=== PATIENT | female | born 1985 | race Caucasian/White ===

== ENCOUNTER 2023-08-09 18:44 | Emergency (ER) | payer OTHER, SELFPAY ==
[2023-08-09 18:51] VITALS: BP 128/96; PULSE 96; RESP 18; TEMP 36.6; O2SAT 96; BMI 30.7
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
[2023-08-09] MEDS: 0.9 % SODIUM CHLORIDE 1,000 ML 1000 ML IV (19:24)
[2023-08-09] MEDS: ORPHENADRINE 60 MG/ 2 ML VIAL IV (19:24)
[2023-08-09] MEDS: KETOROLAC TROMETHAMINE 30 MG/ML VIAL IVP (19:24)
[2023-08-09] MEDS: METOCLOPRAMIDE HCL 10 MG/2 ML VIAL IVP (19:24)
[2023-08-09] MEDS: DIPHENHYDRAMINE HCL 50 MG/ML (1ML) VIAL 25 MG IV (19:24)
[2023-08-09] MEDS: MAGNESIUM SULFATE IN WATER 2 GM/50 ML PREMIX IV (21:15)
[2023-08-09] MEDS: METHYLPREDNISOLONE SOD SUCC PF 125 MG/2 ML VIAL IVP (21:16)
== END 2023-08-09 22:20 | disposition home or self-care (01) ==
PROVIDERS: Emergency Provider Internal Medicine
DX: R51.9 Headache, unspecified (principal); Z98.1 Arthrodesis status
CPT/HCPCS: 96361; 96374; 96375; 99284; J2930

== ENCOUNTER 2023-12-30 18:37 | Emergency (ER) | payer SELFPAY ==
[2023-12-30] VITALS (19 sets, daily range): BP systolic 125–142; BP diastolic 90–105; PULSE 84–98; RESP 15–26; TEMP 36.9; O2SAT 94–99; BMI 35.8
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
--- NOTE | 2023-12-30 18:55 | ECG_ITS ---
The [facility] Test Date: 2023-12-30 Pat Name: MARY GAN Department: Room: - Gender: Female [employer]: : 1985 Requested By: [id number] Order Number: [id number] Reading MD: KARI VU Measurements Intervals [place] Rate: 82 P: 63 CT: 178 QRS: 33 QRSD: 90 T: 43 QT: 364 QTc: 402 Interpretive Statements 1100 Sinus rhythm 8102 Low QRS voltage in chest leads 9120 atypical ECG No previous ECG available for comparison Electronically Signed On 01-01-2024 5:55:29 EST by KARI VU
--- NOTE | 2023-12-30 18:56 | CT_ITS ---
The [address] [address] Patient Name: MARY GAN MRN: [id number] date: 1985 Sex: F Assigned Patient Location: ER Current Patient Location: ER Accession/Order Number: [id number] Exam Date: 12/30/2023 19:31 Report Date: 12/30/2023 20:25 At the request of: LEANNE FERRER Procedure: CT angio chest EXAM: CTA chest. CLINICAL SYMPTOMS: Female, 38 years, Chest pain/shortness of breath/Family History:. COMPARISONS: None. TECHNIQUE: Helical CTA of the pulmonary arteries was performed following rapid injection of intravenous contrast with coronal and sagittal MIP images following the administration of IV contrast. Dose reduction techniques were achieved by using automated exposure control and/or adjustment of mA and/or KVP according to patient size and/or use of iterative reconstruction technique. FINDINGS: Neck/Mediastinum: Normal imaged thyroid. No lymphadenopathy. Cardiovascular: Normal heart size without pericardial effusion or thickening. Normal caliber of the ascending thoracic aorta and main pulmonary artery. No central filling defects in the pulmonary arteries. Lungs/pleura/airways: No pneumothorax, pleural effusion or consolidation. No concerning pulmonary nodules. The trachea and mainstem bronchi are clear. Dependent changes at the lung bases. Upper Abdomen: Status post cholecystectomy. Musculoskeletal/Soft Tissues: No acute fracture or aggressive osseous abnormality. Partially imaged postsurgical changes of lower cervical spine. Normal appearance of the soft tissues. CT/CT angio chest IMPRESSION: No evidence for pulmonary embolism or aortic dissection. Electronically authenticated by: ZAID FAIR Date: 12/30/2023 20:25
[2023-12-30 19:08] LABS: Basophils Absolute Auto 0.1 10^3/uL (0.0-0.1); Basophils Percent Auto 0.7 % (0.2-2.0); Eosinophils Absolute Auto 0.1 10^3/uL (0.0-0.7); Eosinophils Percent Auto 0.9 % (0.9-7.0); Hematocrit 39.1 % (36.0-48.0); Hemoglobin 12.8 g/dL (12.0-16.0); Immature Granulocytes Abs Auto 0.03 10^3/uL (0.00-0.03); Immature Granulocytes Pct Auto 0.3 % (0.0-0.5); Lymphocytes Absolute Auto 2.8 10^3/uL (1.2-3.8); Lymphocytes Percent Auto 31.8 % (20.5-60.0); Mean Corpuscular HGB Conc 32.7 g/dL (29.9-35.2); Mean Corpuscular Volume 91.8 fL (81.0-99.0); Mean Platelet Volume 10.5 fL (9.5-13.5); Monocytes Absolute Auto 0.5 10^3/uL (0.3-0.8); Monocytes Percent Auto 5.7 % (1.7-12.0); Neutrophils Absolute Auto 5.3 10^3/uL (1.4-6.5); Neutrophils Percent Auto 60.6 % (43.0-75.0); Platelet Count 280 10^3/uL (150-450); Red Blood Count 4.26 10^6/uL (4.20-5.40); White Blood Count 8.8 10^3/uL (4.0-11.0)
[2023-12-30] MEDS: LORAZEPAM 2 MG/ML 1 ML VIAL 1 MG IV (19:11)
[2023-12-30 19:39] LABS: D Dimer 0.25 mg/L FEU (<=0.59)
[2023-12-30 19:54] LABS: Alanine Aminotransferase 22 U/L (14-59); Albumin Globulin Ratio 1.1; Albumin Level 3.9 g/dL (3.4-5.0); Alkaline Phosphatase 46 U/L (46-116); Anion Gap 14.5; Aspartate Amino Transferase 12 U/L (15-37); BUN Creatinine Ratio 9.3; Bilirubin Total 0.3 mg/dL (0.2-1.0); Carbon Dioxide 24.2 mmol/L (21.0-32.0); Chloride 102 mmol/L (98-107); Estimated GFR (African America >60 (>=60); Estimated GFR (Non-African Ame >60 (>=60); Globulin 3.7 g/dL; Glucose 106 mg/dL (74-106); Potassium 3.7 mmol/L (3.5-5.1); Sodium 137 mmol/L (136-145); Total Protein 7.6 g/dL (6.4-8.2); Troponin I High Sensitivity <4.0 pg/mL (4.0-51.3)
== END 2023-12-30 21:03 | disposition home or self-care (01) ==
PROVIDERS: Emergency Medicine Emergency Medical Services; Emergency Provider Internal Medicine
DX: R07.89 Other chest pain (principal); Z98.1 Arthrodesis status; Z79.899 Other long term (current) drug therapy
CPT/HCPCS: 36415; 71275; 80053; 84484; 85025; 85378; 93005; 96374; 99285; J2060; Q9967

== ENCOUNTER 2024-08-09 12:09 | Emergency (ER) | payer SELFPAY ==
[2024-08-09 12:13] VITALS: BP 119/86; PULSE 112; TEMP 36.9; O2SAT 96; BMI 30.7
[2024-08-09 12:28] VITALS: O2SAT 98
--- NOTE | 2024-08-09 12:29 | XR_ITS ---
The [address] [address] Patient Name: MARY GAN MRN: [id number] date: 1985 Sex: F Assigned Patient Location: ER Current Patient Location: ER Accession/Order Number: [id number] Exam Date: 08/09/2024 13:14 Report Date: 08/09/2024 13:32 At the request of: RACHELLE LIGHT Procedure: XR chest 1V EXAMINATION: XR chest 1V HISTORY: cough, SOB COMPARISON: No relevant comparison available. TECHNIQUE: AP portable FINDINGS: LUNGS: No significant pulmonary parenchymal abnormalities. VASCULATURE: No increased pulmonary vasculature. PLEURA: No pneumothorax, effusion, or pleural thickening. CARDIAC: No cardiomegaly or cardiac silhouette abnormality. MEDIASTINUM: No visible mass or adenopathy. BONES: No fracture or visible bone lesion. Degenerative changes. Cervical fusion hardware OTHER: Negative. XR/XR chest 1V IMPRESSION: No acute cardiopulmonary process Electronically authenticated by: SOURAV KIRKPATRICK Date: 08/09/2024 13:32
--- NOTE | 2024-08-09 12:30 | ED_ITS ---
HPI - SOB/Dyspnea General Chief Complaint: Shortness of Breath/Dyspnea Stated Complaint: COUGH, SOB, CHEST PAIN Time Seen by Provider: 08/09/24 12:25 Source: patient Mode of arrival: walk-in Limitations: no limitations History of Present Illness HPI Narrative: 38-year-old female presents for a few day history of cough and shortness of breath. She is now coughing up a small amount of phlegm. She took a home COVID test that was negative. She had a history of exercise-induced asthma as a child but has not needed an inhaler since age 20. She has not had a fever or hemoptysis. Related Data Previous Rx's ?Medication ?Instructions ?Recorded albuterol sulfate 90 mcg/actuation 2 inh inhalation Q4H PRN shortness 08/09/24 aerosol inhaler of breath or wheezing #8.5 grams azithromycin 250 mg tablet See Rx Instructions PO .COMPLEX #6 08/09/24 (Zithromax Z-Salo) tabs benzonatate 100 mg capsule 100 mg PO TID PRN cough #20 caps 08/09/24 prednisone 10 mg tablet See Rx Instructions .Route 08/09/24 .COMPLEX #30 tabs Allergies Allergy/AdvReac Type Severity Reaction Status Date / Time No Known Drug Allergies Allergy Verified 08/09/23 18:56 Review of Systems ROS Narrative A ten point review of systems is negative except as noted above. Exam Narrative Exam Narrative: Nurses note and vital signs reviewed and patient is not hypoxic. General: The patient in no acute respiratory distress. She appears mildly dyspneic Skin: Warm, dry, no pallor noted. There is no rash noted. Head: Normocephalic, atraumatic Eye: Normal conjunctiva, no drainage Ears, Nose, Mouth, and Throat: oral mucosa is moist. Nares patent. Cardiovascular: Regular Rate and Rhythm, minimally tachycardic Respiratory: No acute distress, good air movement present Back: non-tender GI: Soft and nontender Musculoskeletal: The patient has no evidence of calf tenderness, no pitting edema, symmetrical pulses noted bilaterally Neurological: Awake and alert Psychiatric: Cooperative Constitutional Vital Signs, click to edit/add: Last Vital Signs Temp 98.5 F 08/09/24 12:13 Pulse 112 H 08/09/24 12:13 Resp 20 08/09/24 12:13 BP 119/86 08/09/24 12:13 Pulse Ox 98 08/09/24 12:28 O2 Del Method Room Air 08/09/24 12:42 Course Vital Signs Vital signs: Vital Signs Temperature 98.5 F 08/09/24 12:13 Pulse Rate 112 H 08/09/24 12:13 Respiratory Rate 20 08/09/24 12:13 Blood Pressure 119/86 08/09/24 12:13 Pulse Oximetry 96 08/09/24 12:13 Oxygen Delivery Method Room Air 08/09/24 12:13 Temperature 98.5 F 08/09/24 12:13 Pulse Rate 112 H 08/09/24 12:13 Respiratory Rate 20 08/09/24 12:13 Blood Pressure 119/86 08/09/24 12:13 Pulse Oximetry 98 08/09/24 12:28 Oxygen Delivery Method Room Air 08/09/24 12:42 MDM - SOB/Dyspnea MDM Narrative Medical decision making narrative: Chest x-ray, test, and COVID test are all negative. She feels somewhat improved with aerosol treatment and she is able to be discharged home. Treatment diagnosis and follow-up were discussed with the patient. Differential Diagnosis Differential diagnosis: Likely community acquired pneumonia and other (URI, COVID) Lab Data Attestation: I reviewed the patient's lab results. Labs: Lab Results 08/09/24 08/09/24 Range/Units 12:40 12:46 Urine HCG, Qual Negative (NEGATIVE) SARS-CoV-2 Ag (CV2AG) Negative (NEGATIVE) Imaging Data Chest x-ray: Radiologist's impression: ITS Impressions Chest X-Ray 08/09/24 12:29 IMPRESSION: No acute cardiopulmonary process Electronically authenticated by: SOURAV KIRKPATRICK Date: 08/09/2024 13:32 Discharge Plan Discharge Chief Complaint: Shortness of Breath/Dyspnea Clinical Impression: Upper respiratory infection Patient Disposition: Home, Self-Care Time of Disposition Decision: 13:57 Condition: Good Mode of Transportation: Private Vehicle Prescriptions / Home Meds: New prednisone 10 mg tablet See Rx Instructions .ROUTE .COMPLEX Qty: 30 0RF Rx Instructions: 4 by mouth daily for three days then 3 by mouth daily for three days then 2 by mouth daily for three days then 1 by mouth daily for three days azithromycin [Zithromax Z-Salo] 250 mg tablet See Rx Instructions .ROUTE .COMPLEX Qty: 6 0RF Rx Instructions: For 250 mg dose pack: take 500 mg today (day 1), then 250 mg for 4 days (days 2-5) benzonatate 100 mg capsule 100 mg PO TID PRN (Reason: cough) Qty: 20 0RF albuterol sulfate 90 mcg/actuation HFA aerosol inhaler 2 inh inhalation Q4H PRN (Reason: shortness of breath or wheezing) Qty: 8.5 0RF Print Language: Bahamian Instructions: Upper Respiratory Infection (ED) Referrals: [facility] [Primary Care Provider] - 1 week
--- OUTSIDE RECORDS SUMMARY | 2024-08-09 12:35 | XMS_ITS | CCD ---
Author Organization [facility] Care Team Providers Care Gear Inspector Name Role Phone BURKE HOPE Unavailable Unavailable JAYY BURKE Unavailable Unavailable MISC, DOCTOR Unavailable Unavailable BURKE HOPE Unavailable Unavailable Henok Crawford Unavailable Keron Carson Unavailable NO FAMILY, PHYSICIAN Primary Care Provider Unava ilable DO Gt Haro Admit Provider MD Eladio Mayo Attending Provider [phone] Clonch, CSTFA Brian Other Provider UnavailMD Keron Rodriguez Other Provider MD Jim Cardona Other Provider [phone] MD Keron Carson Attending Provider NON STAFF Primary Care Provider Unavaililia e NON STAFF Primary Care Provider UnavailMD Keron Rodriguez Attending Provider BEBE Cruz Primary Care Provider Keron Carson Admitting Unavailable Keron Carson Attending Unavailable NON STAFF Primary Care Unavailable Keron Carson Admitting Unavailable Keron Carson Attending Unavailable Michael Cruz Primary Care Unavailable NO FAMILY, PHYSICIAN Primary Care Unavailable Gt Haro Admitting Unavailable Sonia, Brian Consulting Unavailable Eladio Mayo Attending Unavailab le Keron Carson Consulting Unavailable Jim Cardona Consulting Unavailable Keron Carson Admitting Unavailable Keron Carson Attending Unavailable NON STAFF Primary Care Unavailable Allergies Allergy Classification Reported Allergen(s) Allergy Type Date of Onset Reaction(s) Facility (10 sources) Shellfish Propensity to adverse reactions Unknown [facility] Other (10 sources) Shellfish Drug allergy Unknown [facility] Other (4 sources) Shellfish; Translations: [shellfish derived] Allergy to substance 0 Anaphylaxis [facility] Medications Current Medications Medication Drug Class(es) Dates Sig (Normalized) Sig (Original) ALPRAZolam (10 sources) Benzodiazepine Xanax PRN Active ARIPiprazole 15 mg oral tablet (16 sources) Atypical Antipsychotic Start: 09-07-2022 take 15 mg by mouth once daily Aripiprazole Active 15 MG PO Daily September 07, 2022 12:00am Start: 09-07-2022 End: 09-07-2022 Aripiprazole Discontinued MG TABLET September 07, 2022 12:00am September 07, 2022 5:51pm ARIPiprazole Act ami busPIRone hydrochloride 15 mg oral tablet (13 sources) Start: 09-07-2022 take 15 mg by mouth at bedtime Buspirone Active 15 MG PO Bedtime September 07, 2022 12:00am busPIRone HCl Ac tive cephalexin 500 mg oral capsule (3 sources) Cephalosporin Antibacterial Start: 09-11-2022 take 500 mg by mouth three times daily Cephalexin Active 500 MG PO Three times daily September 11, 2022 12:00am cyclobenzaprine hydrochloride 10 mg oral tablet (5 sources) Muscle Relaxant Start: 08-16-2023 take 1 tablet by mouth every twenty-four hours Cyclobenzaprine HCl 10 MG 1 tablet at bedtime as needed Orally Once a day for 30 days Jul, Active Start: 09-11-2022 take 10 mg by mouth three times daily Cyclobenzaprine Active 10 MG PO Three times daily September 11, 2022 12:00am dexlansoprazole 30 mg delayed release oral capsule (11 sources) Proton Pump Inhibitor Start: 07-26-2022 take 1 capsule by mouth every twenty-four hours Dexilant 30 MG 1 capsule Orally Once a day for 30 day(s) Jun, Active ketorolac tromethamine 10 mg oral tablet (2 sources) Nonsteroidal Anti-inflammatory Drug, Cyclooxygenase Inhibitor take 1 tablet by mouth every six hours at mealtime as needed Ketorolac Tromethamine 10 MG 1 tablet with food or milk as needed Orally every 6 hrs Active lansoprazole 30 mg delayed release oral capsule (10 sources) Proton Pump Inhibitor Start: 06-29-2022 take 1 capsule by mouth every twelve hours Lansoprazole 30 MG 1 capsule before a meal Orally bid for 30 day(s) Jun, Active methocarbamol 750 mg oral tablet (2 sources) Muscle Relaxant take 1 tablet by mouth every four hours Methocarbamol 750 MG 1 tablet Orally every 4 hrs Active oxyCODONE hydrochloride 5 mg oral tablet (3 sources) Opioid Agonist Start: 09-11-2022 take 5-10 mg by mouth every six hours Oxycodone Active 5 - 10 MG PO Q6H 40 September 11, 2022 predniSONE 5 mg oral tablet (5 sources) Start: 08-16-2023 predniSONE 5 MG 1 tablet 3 times a day for 3 days, 1 tablets 2 times a day for 3 days , 1 tablet 1 times a day for 3 days Orally as directed for 9 days Jul, Active Start: 09-11-2022 Prednisone Act ami 1 dose pk PO per package directions September 11, 2022 12:00am take 4 tabs for 3 days then take 3 tabs for 3 days then take 2 tabs for 3 days then take 1 tab for 3 days Start: 09-11-2022 Prednisone Act ami 1 dose pk PO per package directions September 10, 2022 11:00pm take 4 tabs for 3 days then take 3 tabs for 3 days then take 2 tabs for 3 days then take 1 tab for 3 days sertraline 100 mg oral tablet (16 sources) Serotonin Reuptake Inhibitor Start: 09-07-2022 take 100 mg by mouth once daily Sertraline Active 100 MG PO Daily September 07, 2022 12:00am Start: 04-17-2020 End: 09-07-2022 take 50 mg by mouth once daily in the morning Sertraline Discontinued 50 MG PO Every morning April 17, 2020 12:00am September 07, 2022 5:51pm Zoloft Active SUMAtriptan (4 sources) Serotonin-1b and Serotonin-1d Receptor Agonist SUMAtriptan Active Completed/Discontinued Medications Medication Drug Class(es) Dates Sig (Normalized) Sig (Original) Amoxicillin / Clavulanate (10 sources) Penicillin-class Antibacterial Start: 04-28-2016 take 1 tablet by mouth every twelve hours Augmentin 875-125 MG 1 tablet Orally every 12 hrs for 7 days *please review for potential _update for e-prescription and drug interaction check* Apr, Not-Taking cefTRIAXone (10 sources) Cephalosporin Antibacterial Start: 02-04-2010 Rocephin 500 mg Jan, Rocephin nicotine 2 mg chewing gum (3 sources) Cholinergic Nicotinic Agonist Start: 04-17-2020 End: 09-07-2022 Nicotine (Polacrilex) Discontinued 2 MG BUCCAL Q2H 30 April 17, 2020 12:00am September 07, 2022 5:51pm nitrofurantoin, macrocrystals 25 mg / nitrofurantoin, monohydrate 75 mg oral capsule (3 sources) Nitrofuran Antibacterial Start: 04-17-2020 End: 09-07-2022 take 100 mg by mouth twice daily at mealtime Nitrofurantoin Monohyd/M-Cryst Discontinued 100 MG PO Twice daily with meals April 17, 2020 12:00am September 07, 2022 5:51pm (10 sources) *please review for potential _update for e-prescription and drug interaction check* Not-Taking sucralfate 1000 mg oral tablet (13 sources) Aluminum Complex Start: 12-25-2018 End: 04-13-2020 take 1 tablet by mouth four times daily Sucralfate Discontinued 1 TAB PO Four times daily December 25, 2018 1:00am April 13, 2020 11:55am Sucralfate Activ e traMADol hydrochloride 50 mg oral tablet (3 sources) Opioid Agonist Start: 09-07-2022 End: 09-11-2022 take 50 mg by mouth every six hours Tramadol Discontinued 50 MG PO Q6H September 07, 2022 12:00am September 11, 2022 10:27am traZODone hydrochloride 50 mg oral tablet (3 sources) Serotonin Reuptake Inhibitor Start: 04-17-2020 End: 09-07-2022 take 50 mg by mouth once daily at bedtime Trazodone Discontinued 50 MG PO Daily at bedtime April 17, 2020 12:00am September 07, 2022 5:53pm Problems Active Problems Problem Classification Problem Date Documented Date Episodic/Chronic Abdominal pain (11 sources) Abdominal pain; Translations: [Unspecified abdominal pain] Onset: 06-29-2022 Resolved: 06-29-2022 Episodic Esophageal disorders (15 sources) Gastroesophageal reflux disease; Translations: [Gastro-esophageal reflux disease without esophagitis] Onset: 06-29-2022 Resolved: 07-20-2022 Chronic Fracture of lower limb (20 sources) Nondisplaced fracture of lateral malleolus of left fibula, subsequent encounter for closed fracture with routine healing; Translations: [Closed fracture of lateral malleolus] Episodic Mood disorders (3 sources) Recurrent major depression; Translations: [Major depressive disorder, recurrent, unspecified] 04-14-2020 Chronic Nutritional deficiencies (3 sources) Vitamin D deficiency; Translations: [Vitamin D deficiency, unspecified] 04-14-2020 Chronic Other acquired deformities (5 sources) Spondylolisthesis; Translations: [Spondylolisthesis, cervical region] Episodic Other acquired deformities (2 sources) Spondylolisthesis, cervical region Episodic Other connective tissue disease (3 sources) Arthrodesis status; Translations: [ARTHRODESIS STATUS] Onset: 09-21-2017 Episodic Other connective tissue disease (3 sources) Muscle weakness of upper limb; Translations: [Other symptoms and signs involving the musculoskeletal system] 09-07-2022 Episodic Other fractures (3 sources) Fracture of cervical spine; Translations: [Fracture of neck, unspecified, initial encounter] 09-07-2022 Episodic Other fractures (1 source) Fracture of neck, unspecified, initial encounter; Translations: [Closed fracture of cervical vertebra, unspecified level] 09-11-2022 Episodic Other nervous system disorders (1 source) Polyneuropathy, unspecified; Translations: [POLYNEUROPATHY UNSPECIFIED] Onset: 09-21-2017 Chronic Other nervous system disorders (10 sources) Chronic pain; Translations: [Other chronic pain] Chronic Other non-traumatic joint disorders (10 sources) Acute ankle pain; Translations: [Pain in left ankle and joints of left foot] Episodic Other non-traumatic joint disorders (1 source) Pain in left shoulder Episodic Spondylosis; intervertebral disc disorders; other back problems (9 sources) Displacement of cervical intervertebral disc; Translations: [Other cervical disc displacement, unspecified cervical region] Onset: 12-21-2022 Chronic Spondylosis; intervertebral disc disorders; other back problems (20 sources) Neck pain; Translations: [Cervicalgia] Onset: 09-07-2022 09-08-2022 Episodic Sprains and strains (6 sources) Acute cervical sprain; Translations: [Sprain of joints and ligaments of unspecified parts of neck, initial encounter] 09-22-2019 Episodic Suicide and intentional self-inflicted injury (3 sources) Suicidal thoughts; Translations: [Suicidal ideations] 04-13-2020 Episodic Unclassified (1 source) Spondylolisthesis, cervical region; Translations: [Spondylolisthesis, cervical region] Onset: 02-17-2023 Unclassified (1 source) Fracture of neck, unspecified, initial encounter; Translations: [Fracture of neck, unspecified, initial encounter] Onset: 09-07-2022 Urinary tract infections (3 sources) Urinary tract infectious disease; Translations: [Urinary tract infection, site not specified] 04-13-2020 Episodic Past or Other Problems Problem Classification Problem Date Documented Date Episodic/Chronic Malaise and fatigue (3 sources) Weakness; Translations: [WEAKNESS] Onset: 09-19-2017 Episodic Other connective tissue disease (2 sources) Other symptoms and signs involving the musculoskeletal system; Translations: [Other musculoskeletal symptoms referable to limbs] Onset: 09-07-2022 09-11-2022 Episodic Results Test Name Value Interpretation Reference Range Facility XR cerv spine AP/LAT/FLX/EXT on 02-17-2023 XR cerv spine AP/LAT/FLX/EXT [facility] [place] [address] XRay Report Signed Patient: Lynne Levine MR#: [id number] : 1985 Acct:[id number] Age/Sex: 37 / F ADM Date: 02/17/23 Loc: XD Room: Type: [facility] Attending Dr: Keron Carson MD Copies to: Keron Carson MD Ordering Provider: Keron Carson MD Date of Service: 02/17/23 XR/XR cerv spine AP/LAT/FLX/EXT: M43.12 XR cerv spine AP/LAT/FLX/EXT 02/17/2023 11:37 AM SIGNS AND SYMPTOMS: Posterior neck pain with numbness and tingling into left arm with weakness PROTOCOLS: Frontal, lateral, and flexion-extension views of the cervical spine COMPARISON: 12/21/2022 FINDINGS: The bones are in anatomic alignment. Posterior fusion hardware is noted at C4-C5 with anterior fusion from C5 through C7. The prevertebral soft tissues are within normal limits. There is no fracture or subluxation. There is no pathologic movement on flexion or extension. There is straightening of the normal cervical lordosis similar to the prior exam. There is preservation of the vertebral body heights. There is no fracture or destructive lesion. XR/XR cerv spine AP/LAT/FLX/EXT IMPRESSION: Anterior fusion C5-C7 with posterior fusion at C4-C5 similar to the prior exam. No fracture or subluxation. Impression dictated by: Candido Sanchez M.D.02/17/2023 3:09 PM Dictation Location: [place] [address] Transcribed By: [facility] 02/17/23 1509 Dictated By: Candido Sanchez II, MD 02/17/23 1506 Signed By: 02/17/23 1509 Normal [facility] XR cervical spine 2Von 12-21 XR cervical spine 2V [facility] [place] [address] [place] [address] XRay Report Signed Patient: Lynne Levine MR#: [id number] : 1985 Acct:[id number] Age/Sex: 37 / F ADM Date: 12/21/22 Loc: XD Room: Type: [facility] Attending Dr: Keron Carson MD Copies to: Keron Carson MD Ordering Provider: Keron Carson MD Date of Service: 12/21/22 XR/XR cervical spine 2V: M50.20 CERVICAL SPINE 2 views: CLINICAL HISTORY: Follow-up cervical spine surgery. COMPARISON: Cervical spine 10/01/2022 FINDINGS: Anterior fusion hardware C4-C6 without radiographic complication. Posterior fixation C4-5 without hardware complication. Vertebral body and remaining disc space heights appear maintained. No prevertebral soft tissue swelling. XR/XR cervical spine 2V IMPRESSION: NO EVIDENCE OF HARDWARE COMPLICATION. Impression dictated by: Bennett Delaney Jr., D.OMaldonado12/21/2022 3:34 PM Dictation Location: [facility]-12 Transcribed By: NII 12/21/22 1534 Dictated By: Bennett Delaney Jr, DO 12/21/22 153 Signed By: 12/21/22 153 [facility] XR cervical spine 2Von 10-01 XR cervical spine 2V [facility] [place] [address] [place] [address] XRay Report Signed Patient: Lynne Levine MR#: [id number] : 1985 Acct:[id number] Age/Sex: 37 / F ADM Date: 10/01/22 Loc: XD Room: Type: [facility] Attending Dr: Keron Carson MD Copies to: Keron Carson MD Ordering Provider: Keron Carson MD Date of Service: 10/01/22 XR/XR cervical spine 2V: M50.20 CERVICAL SPINE 2 views: CLINICAL HISTORY: Follow-up C4 and C5 surgery. COMPARISON: Cervical spine series 09/07/2022 FINDINGS: Interval placement of anterior fusion hardware C4 through C6 without radiographic complication. Posterior fixation C4-5 without hardware complication. Vertebral body and remaining space heights appear maintained. XR/XR cervical spine 2V IMPRESSION: NO EVIDENCE OF HARDWARE COMPLICATION. Impression dictated by: Bennett Delaney Jr., D.O.10/01/2022 4:23 PM Dictation Location: [facility]-08 Transcribed By: NII 10/01/223 Dictated By: Bennett Delaney Jr, DO 10/01/22 1623 Signed By: 10/01/22 1623 [facility] Basic Metabolic Panelon 10-1 Anion gap [Moles/Vol] 8.5 mmol/L Normal 6.0-15.0 [facility] Comment on above: Performed By: #### M G, SCAN CBC, BMP #### [facility] [address] [place] [id number] [facility] Calcium [Mass/Vol] 8.7 mg/dL Normal 8.2-10.2 [facility] Comment on above: Performed By: #### M G, SCAN CBC, BMP #### [facility] [address] [place] [address] [place] Chloride [Moles/Vol] 106 mmol/L Normal 95-114 [facility] Comment on above: Performed By: #### M G, SCAN CBC, BMP #### [facility] [address] [place] [id number] [place] CO2 [Moles/Vol] 24.4 mmol/L Normal 22.0-30.0 [facility] Comment on above: Performed By: #### M G, SCAN CBC, BMP #### [facility] [address] Creatinine [Mass/Vol] 0.65 mg/dL Normal 0.44-1.03 [facility] Comment on above: Performed By: #### M G, SCAN CBC, BMP #### [facility] [address] [place] [address] [place] Creatinine Clr Calc Pharmacy 157.41 [facility] Comment on above: Performed By: #### M G, SCAN CBC, BMP #### [facility] [address] Estimated GFR ( Cinthya > 60 [facility] Comment on above: Result Comment: GFR estimated reference range: According to KDOQI guidelines, <60 ml/min/1.73m2 is sufficient to diagnose a patient with chronic kidney disease. Performed By: #### M G, SCAN CBC, BMP #### [facility] [address] Estimated GFR (Non- Am > 60 [facility] Comment on above: Performed By: #### M G, SCAN CBC, BMP #### [facility] [address] [place] [id number] [place] Glucose [Mass/Vol] 167 mg/dL High 70-100 [facility] Comment on above: Result Comment: [place] Glucose Reference Range is dependent on time and content of last meal. Glucose of more than 200 mg/dL in a nonstressed, ambulatory subject supports the diagnosis of Diabetes Mellitus. ADA recommended reference range Performed By: #### M G, SCAN CBC, BMP #### [facility] [address] [place] [address] [place] Potassium [Moles/Vol] 3.9 mmol/L Normal 3.5-5.1 [facility] Comment on above: Performed By: #### M G, SCAN CBC, BMP #### [facility] [address] [place] [id number] [place] Sodium [Moles/Vol] 135 mmol/L Low 136-146 [facility] Comment on above: Performed By: #### M G, SCAN CBC, BMP #### [facility] [address] [place] [address] [place] Urea nitrogen [Mass/Vol] 13 mg/dL Normal 9-23 [facility] Comment on above: Performed By: #### M G, SCAN CBC, BMP #### [facility] [address] [place] [address] [place] Basophils Auto (Bld) [#/Vol] Ordered By: Eladio Mayo on 09-11-2022 Basophils (Bld) [#/Vol] 0.0 10*3/uL 0.0-0.2 [facility] Basophils/100 WBC Auto (Bld) Ordered By: Eladio Mayo on 09-11-2022 Basophils/100 WBC (Bld) 0.1 % . [facility] Creatinine and Glomerular fi ltration rate.predicted panel (S/P/Bld)Ordered By: Eladio Mayo on 09-11-2022 Creatinine [Mass/Vol] 0.65 mg/dL 0.44-1.03 [facility] Eosinophils Auto (Bld) [#/Vo l]Ordered By: Eladio Mayo on 09-11-2022 Eosinophils (Bld) [#/Vol] 0.0 10*3/uL 0.0-0.45 [facility] Eosinophils/100 WBC Auto (Bl d)Ordered By: Eladio Mayo on 09-11-2022 Eosinophils/100 WBC (Bld) 0.0 % . [facility] Erythrocyte distribution wid th Auto (RBC) [Ratio]Ordered By: Eladio Mayo on 09-11-2022 Erythrocyte distribution width (RBC) [Ratio] 12.4 % 11.9-15.3 [facility] Estimated glomerular filtrat ion rate (GFR) non- AmericanOrdered By: Eladio Mayo on 09-11-2022 GFR/1.73 sq M.predicted among non-blacks MDRD (S/P/Bld) [Vol rate/Area] > 60 mL/Min [facility] Hematocrit Auto (Bld) [Volum e fraction]Ordered By: Eladio Mayo on 09-11-2022 Hematocrit (Bld) [Volume fraction] 39.4 % 34.0-46.4 [facility] Hemoglobin [Mass/volume] in BloodOrdered By: Eladio Mayo on 09-11-2022 Hemoglobin (Bld) [Mass/Vol] 13.0 g/dL 11.8-15.4 [facility] Laboratory - Chemistry and C hemistry - challengeOrdered By: Eladio Mayo on 09-11-2022 Magnesium [Mass/Vol] 2.2 mg/dL 1.6-2.6 [facility] Laboratory - Hematology and Cell countsOrdered By: Eladio Mayo on 09-11-2022 Nucleated RBC/100 WBC (Bld) [Ratio] 0.0 % 0-0.5 [facility] Leukocytes [#/volume] in Blo od by Automated countOrdered By: Eladio Mayo on 09-11-2022 WBC (Bld) [#/Vol] 13.2 10*3/uL 4.5-11.0 [facility] Lymphocytes Auto (Bld) [#/Vo l]Ordered By: Eladio Mayo on 09-11-2022 Lymphocytes (Bld) [#/Vol] 0.9 10*3/uL 1.00-4.8 [facility] Lymphocytes/100 WBC Auto (Bl d)Ordered By: Eladiotiesha Mayo on 09-11-2022 Lymphocytes/100 WBC (Bld) 6.9 % . [facility] MCH Auto (RBC) [Entitic mass ]Ordered By: Eladio Mayo on 09-11-2022 MCH (RBC) [Entitic mass] 30.5 pg 24.7-34.3 [facility] MCHC Auto (RBC) [Mass/Vol]Or dered By: Eladio Mayo on 09-11-2022 MCHC (RBC) [Mass/Vol] 33.0 g/dL 32.0-35.0 [facility] MCV Auto (RBC) [Entitic vol] Ordered By: Eladio Mayo on 09-11-2022 MCV (RBC) [Entitic vol] 92.4 fL 80-100 [facility] Magnesiumon 09-11-2022 Magnesium [Mass/Vol] 2.2 mg/dL Normal 1.6-2.6 [facility] Comment on above: Result Comment: PERF ORMED BY: [place] [address] [place] [address] PATHOLOGIST PIPELINE OPERATOR SLIM SERRATO M.D. Performed By: #### M G, SCAN CBC, BMP #### [facility] [address] Monocytes Auto (Bld) [#/Vol] Ordered By: Eladio Mayo on 09-11-2022 Monocytes (Bld) [#/Vol] 0.9 10*3/uL 0.0-0.8 [facility] Monocytes/100 WBC Auto (Bld) Ordered By: Eladio Mayo on 09-11-2022 Monocytes/100 WBC (Bld) 6.4 % . [facility] Neutrophils Auto (Bld) [#/Vo l]Ordered By: Eladio Mayo on 09-11-2022 Neutrophils (Bld) [#/Vol] 11.4 10*3/uL 1.8-7.7 [facility] Neutrophils/100 WBC Auto (Bl d)Ordered By: Eladio Mayo on 09-11-2022 Neutrophils/100 WBC (Bld) 86.6 % . [facility] No Panel InformationOrdered By: Eladio Mayo on 09-11-2022 Estimated GFR () > 60 mL/Min [facility] Comment on above: GFR estimated refere nce range: According to KDOQI guidelines, <60 ml/min/1.73m2 is sufficient to diagnose a patient with chronic kidney disease. Pharmacy Creatinine Clearance (Chem 157.41 [facility] Platelet Estimate Normal Normal [facility] Platelet Morphology Comment Normal Normal [facility] Platelet mean volume Auto (B ld) [Entitic vol]Ordered By: Eladio Mayo on 09-11-2022 Platelet mean volume (Bld) [Entitic vol] 9.0 fL 6.3-10.7 [facility] Platelets Auto (Bld) [#/Vol] Ordered By: Eladio Mayo on 09-11-2022 Platelets (Bld) [#/Vol] 237 10*3/uL 150-450 [facility] RBC Auto (Bld) [#/Vol]Ordere d By: Eladio Mayo on 09-11-2022 RBC (Bld) [#/Vol] 4.27 10*6/uL 3.60-5.00 [facility] RBC morphologyOrdered By: Fr blaise Mayo on 09-11-2022 RBC morphology finding Nom (Bld) Normal [facility] Scan and CBCon 09-11-2022 Basophils (Bld) [#/Vol] 0.0 10*3/uL Normal 0.0-0.2 [facility] Comment on above: Performed By: #### M G, SCAN CBC, BMP #### [facility] [address] [place] [address] [place] Basophils/100 WBC (Bld) 0.1 % Normal . [facility] Comment on above: Performed By: #### M G, SCAN CBC, BMP #### [facility] [address] [place] [id number] [place] Eosinophils (Bld) [#/Vol] 0.0 10*3/uL Normal 0.0-0.45 [facility] Comment on above: Performed By: #### M G, SCAN CBC, BMP #### [facility] [address] [place] [id number] [place] Eosinophils/100 WBC (Bld) 0.0 % Normal . [facility] Comment on above: Performed By: #### M G, SCAN CBC, BMP #### [facility] [address] Erythrocyte distribution width (RBC) [Ratio] 12.4 % Normal 11.9-15.3 [facility] Comment on above: Performed By: #### M G, SCAN CBC, BMP #### [facility] [address] Hematocrit (Bld) [Volume fraction] 39.4 % Normal 34.0-46.4 [facility] Comment on above: Performed By: #### M G, SCAN CBC, BMP #### [facility] [address] Hemoglobin (Bld) [Mass/Vol] 13.0 g/dL Normal 11.8-15.4 [facility] Comment on above: Performed By: #### M G, SCAN CBC, BMP #### [address] Lymphocytes (Bld) [#/Vol] 0.9 10*3/uL Low 1.00-4.8 [facility] Comment on above: Performed By: #### M G, SCAN CBC, BMP #### [address] Lymphocytes/100 WBC (Bld) 6.9 % Normal . [facility] Comment on above: Performed By: #### M G, SCAN CBC, BMP #### [address] MCH (RBC) [Entitic mass] 30.5 pg Normal 24.7-34.3 [facility] Comment on above: Performed By: #### M G, SCAN CBC, BMP #### [place] [address] [place] MCV (RBC) [Entitic vol] 92.4 fL Normal 80-100 [facility] Comment on above: Performed By: #### M G, SCAN CBC, BMP #### [address] Mean Corpuscular HGB Conc 33.0 g/dL Normal 32.0-35.0 [facility] Comment on above: Performed By: #### M G, SCAN CBC, BMP #### [facility] [address] [place] [address] [place] Monocytes (Bld) [#/Vol] 0.9 10*3/uL High 0.0-0.8 [facility] Comment on above: Performed By: #### M G, SCAN CBC, BMP #### [facility] [address] [place] [address] [place] Monocytes/100 WBC (Bld) 6.4 % Normal . [facility] Comment on above: Performed By: #### M G, SCAN CBC, BMP #### [facility] [facility] [address] [place] [address] [place] Neutrophils (Bld) [#/Vol] 11.4 10*3/uL High 1.8-7.7 [facility] Comment on above: Performed By: #### M G, SCAN CBC, BMP #### [facility] [address] [place] [address] Neutrophils/100 WBC (Bld) 86.6 % Normal . [facility] Comment on above: Performed By: #### M G, SCAN CBC, BMP #### [facility] [address] [place] [address] [place] Nucleated RBC/100 WBC (Bld) [Ratio] 0.0 % Normal 0-0.5 [facility] Comment on above: Performed By: #### M G, SCAN CBC, BMP #### [facility] [address] [place] [address] [place] Platelet Estimate Normal Normal Normal [facility] Comment on above: Performed By: #### M G, SCAN CBC, BMP #### [facility] [address] [place] [address] [place] Platelet mean volume (Bld) [Entitic vol] 9.0 fL Normal 6.3-10.7 [facility] Comment on above: Performed By: #### M G, SCAN CBC, BMP #### [facility] [address] [place] [address] [place] Platelet Morphology Normal Normal Normal [facility] Comment on above: Result Comment: PERF ORMED BY: [place] [address] PATHOLOGIST PIPELINE OPERATOR SLIM SERRATO M.D. Performed By: #### M G, SCAN CBC, BMP #### [facility] [address] Platelets (Bld) [#/Vol] 237 10*3/uL Normal 150-450 [facility] Comment on above: Performed By: #### M G, SCAN CBC, BMP #### [facility] [address] RBC (Bld) [#/Vol] 4.27 10*6/uL Normal 3.60-5.00 [facility] Comment on above: Performed By: #### M G, SCAN CBC, BMP #### [address] RBC morphology finding Nom (Bld) Normal Normal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 [facility] (DEFAULT) [address] [place] [address] 78853 MCHC (RBC) [Mass/Vol] 33 g/dL Normal 26-37 [facility] Comment on above: Performed By: #### 1 [id number], 3470907683, 3840688, 28056701, 0446161, 1985362142 #### [facility] (DEFAULT) [address] [place] [address] 26748 MCV (RBC) [Entitic vol] 95 fL Normal 81-100 [facility] Comment on above: Performed By: #### 1 [id number], 8846443214, 0540881, 53433408, 2578073, 7558425379 #### [facility] (DEFAULT) [address] [place] [address] 76594 Platelet mean volume (Bld) [Entitic vol] 10.5 fL High 6.3-10.2 [facility] Comment on above: Performed By: #### 1 076254233, 6366318769, 2611718, 32030522, 2588220, 5586396136 #### [facility] (DEFAULT) [address] [place] [address] Platelets (Bld) [#/Vol] 209 x10 Normal 138-427 [facility] Comment on above: Performed By: #### 1 112388547, 9911083449, 0824293, 81542770, 9845961, 3927315249 #### [facility] (DEFAULT) [address] [place] [address] RBC (Bld) [#/Vol] 3.72 x10 Normal 3.70-5.30 [facility] Comment on above: Performed By: #### 1 222800928, 6920300963, 2183469, 04791802, 9478314, 3850837829 #### [facility] (DEFAULT) [address] [place] [address] WBC (Bld) [#/Vol] 7.6 x10 [facility] Comment on above: Performed By: #### 1 [id number], 1556992466, 2880589, 87297014, 0024378, 8606371373 #### [facility] (DEFAULT) [address] [place] [address] Erythrocyte distribution width (RBC) [Ratio] 12.4 % Normal 11.5-15.0 [facility] Comment on above: Performed By: #### 1 048042651, 9850868554, 7677266, 46247216, 6428128, 6801116059 #### [facility] (DEFAULT) [address] [place] [address] Hematocrit (Bld) [Volume fraction] 38.9 % Normal 33.7-40.4 [facility] Comment on above: Performed By: #### 1 [id number], 5041859559, 1174131, 80812624, 4327966, 9372747756 #### [facility] (DEFAULT) [address] [place] [address] Hemoglobin (Bld) [Mass/Vol] 12.9 g/dL Normal 11.3-15.9 [facility] Comment on above: Performed By: #### 1 270337714, 0260997611, 7430901, 22992344, 8260916, 0359759041 #### [facility] (DEFAULT) [address] [place] [address] Man Diff? Auto Normal [facility] Comment on above: Performed By: #### 1 [id number], 8939115542, 7847266, 92585721, 1266903, 7618096926 #### [facility] (DEFAULT) [address] [place] [address] MCH (RBC) [Entitic mass] 31 pg Normal 24-34 [facility] Comment on above: Performed By: #### 1 [id number], 9488919313, 5234402, 71277160, 5814483, 8478274124 #### [facility] (DEFAULT) [address] [place] [address] MCHC (RBC) [Mass/Vol] 33 g/dL Normal 26-37 [facility] Comment on above: Performed By: #### 1 279697924, 4381913157, 7447131, 59083812, 1732477, 9006304354 #### [facility] (DEFAULT) [address] [place] [address] MCV (RBC) [Entitic vol] 93 fL Normal 81-100 [facility] Comment on above: Performed By: #### 1 310703423, 1516771006, 9870129, 78526123, 8969314, 9050683400 #### [facility] (DEFAULT) [address] [place] [address] Platelet mean volume (Bld) [Entitic vol] 10.5 fL High 6.3-10.2 [facility] Comment on above: Performed By: #### 1 846050976, 3610277759, 7523091, 47134345, 5160762, 8746249925 #### [facility] (DEFAULT) [address] [place] [address] Platelets (Bld) [#/Vol] 208 x10 Normal 138-427 [facility] Comment on above: Performed By: #### 1 032329723, 6606355260, 2091114, 78706866, 7171434, 9368650757 #### [facility] (DEFAULT) [address] [place] [address] RBC (Bld) [#/Vol] 4.19 x10 Normal 3.70-5.30 [facility] Comment on above: Performed By: #### 1 462761200, 2473864904, 3878349, 26215870, 2469214, 1862927289 #### [facility] (DEFAULT) [address] [place] [address] WBC (Bld) [#/Vol] 11.7 x10 [facility] Comment on above: Performed By: #### 1 972556776, 4689230240, 1156298, 00505321, 1840652, 8976850163 #### [facility] (DEFAULT) [address] [place] [address] Standardon 10-29-2019 eGFR Non AA >60 [facility] Comment on above: Performed By: #### 1 [id number], 1161448940, 0368367, 77524490, 3779021, 0229932360 #### [facility] (DEFAULT) [address] [place] [address] eGFR AA >60 [facility] Comment on above: Result Comment: Neonatal Intensive Care Nurse elizabeth Kidney disease could be indicated at eGFRs of less than 60 ml/min/1.73m2. Kidney Failure is indicated at less than 15 ml/min/1.73m2 Performed By: #### 1 [id number], 9476548603, 8532806, 80240316, 9786406, 1671537765 #### [facility] (DEFAULT) [address] [place] [address] Albumin [Mass/Vol] 4.3 g/dL Normal 3.5-5.0 [facility] Comment on above: Performed By: #### 1 [id number], 7265495507, 6955000, 29440301, 8677159, 0329226360 #### [facility] (DEFAULT) [address] [place] [address] 66006 Albumin/Globulin [Mass ratio] 1.4 {ratio} Normal 1.4-2.6 [facility] Comment on above: Performed By: #### 1 [id number], 7733326355, 8784790, 64896389, 5454365, 0428830384 #### [facility] (DEFAULT) [address] [place] [address] 55978 Alk Phos 30 IU/L Low 32-91 [facility] Comment on above: Performed By: #### 1 468314451, 9509933909, 8830450, 59624384, 5646385, 6024937511 #### [facility] (DEFAULT) [address] [place] [address] 12486 ALT/SGPT 12.0 IU/L Low 14.0-54.0 [facility] Comment on above: Performed By: #### 1 542862992, 6148160758, 3739883, 11239227, 4589577, 2381237559 #### [facility] (DEFAULT) [address] [place] [address] 50781 Anion gap [Moles/Vol] 14.0 mmol/L Normal 5.0-19.0 [facility] Comment on above: Performed By: #### 1 [id number], 0557042620, 1679991, 44024883, 3252321, 6229419008 #### [facility] (DEFAULT) [address] [place] [address] 24322 AST/SGOT 15 IU/L Normal 15-41 [facility] Comment on above: Performed By: #### 1 476849678, 8976477180, 7755367, 29239648, 5114620, 8308974503 #### [facility] (DEFAULT) [address] [place] [address] Bili Total 0.8 mg/dL Normal 0.3-1.2 [facility] Comment on above: Performed By: #### 1 811135308, 4693432570, 0350726, 29952531, 1000454, 0609362796 #### [facility] (DEFAULT) [address] [place] [address] 35981 Calcium [Mass/Vol] 9.2 mg/dL Normal 8.9-10.3 [facility] Comment on above: Performed By: #### 1 421488549, 3653555697, 8739976, 88241228, 7110959, 0095745671 #### [facility] (DEFAULT) [address] [place] [address] 07247 Chloride [Moles/Vol] 108 mmol/L Normal 101-111 [facility] Comment on above: Performed By: #### 1 307343279, 6121358571, 4047778, 02242193, 5304556, 0236032887 #### [facility] (DEFAULT) [address] [place] [address] 41782 CO2 [Moles/Vol] 21 mmol/L Normal 21-32 [facility] Comment on above: Performed By: #### 1 [id number], 0610562438, 5382692, 84522842, 0505762, 4130985372 #### [facility] (DEFAULT) [address] [place] [address] 44277 Creatinine [Mass/Vol] 0.65 mg/dL Normal 0.60-1.30 [facility] Comment on above: Performed By: #### 1 [id number], 7479788603, 1360339, 28456065, 4226403, 7630756931 #### [facility] (DEFAULT) [address] [place] [address] 67225 Globulin (S) [Mass/Vol] 3.1 g/dL Normal 1.5-4.3 [facility] Comment on above: Performed By: #### 1 [id number], 2393659978, 8918469, 76139015, 0082142, 7691186067 #### [facility] (DEFAULT) [address] [place] [address] 57464 Glucose [Mass/Vol] 119.0 mg/dL High 74.0-118.0 [facility] Comment on above: Performed By: #### 1 [id number], 6739639486, 7360760, 91020602, 5735989, 3324294887 #### [facility] (DEFAULT) [address] [place] [address] 84613 Osmolality [Osmolality] 278 mOsm/L [facility] Comment on above: Performed By: #### 1 605362878, 9243111336, 8828448, 58127669, 9815637, 3481445575 #### [facility] (DEFAULT) [address] [place] [address] 52100 Potassium [Moles/Vol] 3.7 mmol/L Normal 3.6-5.1 [facility] Comment on above: Performed By: #### 1 [id number], 8091857737, 7352980, 19110074, 3510120, 4425568615 #### [facility] (DEFAULT) [address] [place] [address] 72825 Protein [Mass/Vol] 7.4 g/dL Normal 6.5-8.1 [facility] Comment on above: Performed By: #### 1 [id number], 0341976472, 2733596, 61078267, 4634591, 5627400277 #### [facility] (DEFAULT) [address] [place] [address] 93686 Sodium [Moles/Vol] 139.0 mmol/L Normal 136.0-144.0 [facility] Comment on above: Performed By: #### 1 [id number], 2817249066, 7615620, 77674203, 5654684, 6246540415 #### [facility] (DEFAULT) [address] [place] [address] 72610 Urea nitrogen [Mass/Vol] 11 mg/dL Normal 8-26 [facility] Comment on above: Performed By: #### 1 [id number], 8648202027, 8560336, 22842600, 7777825, 9932861235 #### [facility] (DEFAULT) [address] [place] [address] 05717 Urea nitrogen/Creatinine [Mass ratio] 17.0 mg/mg High 4.6-16.2 [facility] Comment on above: Performed By: #### 1 [id number], 9886927650, 9248059, 72274603, 1226111, 2451440361 #### [facility] (DEFAULT) [address] [place] [address] CT Abdomen/Pelvis w/o Contra vince 10-29-2019 CT Abdomen/Pelvis w/o Contrast EXAMINATION: CT Abdomen/Pelvis w/o Contrast HISTORY: mid abd pain COMPARISON: October 23, 2019 TECHNIQUE: Non-contrast helical imaging of the abdomen and pelvis is performed. Multiplanar reconstructions are submitted. Dose reduction techniques were achieved by using: automated exposure control and/or adjustment of mA and /or kV according to patient size and/or use of iterative reconstruction technique. FINDINGS: Hepatobiliary:The liver, spleen and pancreas are normal. Probable small gallstones in the gallbladder without evidence for wall thickening or surrounding fluid. No free air or fluid collections are identified. . Gastrointestinal: No bowel wall thickening or obstruction. Distal appendix measures up to 7 mm in diameter. No surrounding soft tissue stranding or fluid. Genitourinary: Kidneys are symmetric in size and contour. Nonobstructing small calcifications are noted in both kidneys. No hydronephrosis or perinephric fluid. No calcifications in the collecting system. Uterus is retroverted. Multiple follicles are noted in both ovaries. No significant free fluid. Partly filled bladder shows nonspecific mild wall thickening. No filling defects Skeleton: No acute fracture or bone destruction. Lower thorax: No acute process. IMPRESSION: Distal appendix measures up to 7 mm in diameter. No surrounding fat stranding or fluid. Findings are nonspecific however early tip appendicitis may be considered in the appropriate clinical setting. Small gallstones in the gallbladder without evidence for cholecystitis Nonobstructing small calcifications in both kidneys Final Dictated by: MD Fernando Suzanne L Dictated DT/TM: 10/29/19 0:41 Signed (Electronic Signature): MD Fernando Suzanne L 10/29/19 0:46 am Technologist: MARTY Goldstein [facility] ED Clinical Summaryon 2018 ED Clinical Summary [facility] - Emergency Department [address] [place] [address] [id number] ED Clinical Summary PERSON INFORMATION Name: LYNNE LAWS Age: 34 Years Sex: FEMALE : 1985 MRN: Acct#: Visit Reason: Nausea; Vomiting; ABD PAIN Arrival: 10/28/2019 23:15:38 Discharge: LOS: 000 02:51 Check In: 10/28/2019 23:15:38 Checkout:10/29/2019 02:06:01 Address: [address] [place] [address] PCP: Provider, None PROVIDER INFORMATION Provider Role Assigned Unassigned Prince LANDON, [place] ED Nurse 10/28/2019 23:17:15 Syd Davis DO ED Provider 10/28/2019 23:23:14 VITALS INFORMATION Vital Sign Triage Latest Temperature Tympanic Temperature Temporal Artery Pulse Rate 97 bpm 90 bpm O2 Sat 100 % 100 % Respiratory Rate 16 br/min 16 br/min Blood Pressure /88 mmHg /88 mmHg MEDICAL INFORMATION Medications Given: Medication Dose Route ondansetron 4 mg IV Push lorazepam 0.5 mg IV Push ketorolac 30 mg IV Push pantoprazole 40 mg IV Push HYDROmorphone 0.5 mg IV Push ertapenem 1 gm IV Piggyback Allergy Information: shellfish PHYSICIAN DOCUMENTATION DISCHARGE INFORMATION: Discharge Disposition: Admitted as Observation Discharge Location: PATIENT EDUCATION INFORMATION Instructions: Follow-Up: DIAGNOSIS: Abdominal pain in female Patient Understands: Yes - Patient/family/caregiver verbalizes understanding of instructions given Comment: [facility] ED Note - Physicianon 2018 ED Note - Physician Patient: LYNNE LAWS Age: 34 years Sex: FEMALE : 1985 Associated Diagnoses: Abdominal pain in female Author: Syd Davis DO Basic Information Time seen: Date & time 10/28/2019 23:19:00. History source: Patient. Arrival mode: Private vehicle, walking. History limitation: None. History of Present Illness The patient presents with nausea and vomiting. Review of Systems Constitutional symptoms: This patient presents to the emergency room for reevaluation of vomiting. She states she was seen here on 23 October, for abdominal pain, right flank, thought to be kidney stones, which was negative, but she continued to have nausea, now she's been vomiting especially the last 2 days, with generalized abdominal pain that doesn't go away, she has last eaten yesterday, no diarrhea, no urinary complaints, no fever, no chills, no radiation to the discomfort, not on her period, not , and she states that Zofran given to her has not been effective today for vomiting and Keflex she has been trying to take as she was prescribed at the time of her visit on the . Social history: Single, sexually active, nonsmoker, employed, drove herself to the emergency room. Past surgical history: None, but she has had kidney stones in the past which she has passed on her own Past medical conditions: She denies cardiac disease lung disease, she admits to ulcers, when she was a child, she had scopes at that time, that demonstrated the altered, she has not had colonoscopy, she had blood in her stool once many years ago, and one of the differentials was Crohn's disease, there was never a formal diagnosis made of Crohn's disease. Review of systems otherwise: No fever, no rash, no shortness of breath, no chest pain, no extremity pain; Physical exam: Pleasant, alert, appears uncomfortable, has nausea, has her legs drawn up, her but she is able to straighten her legs out acceptably she admits to generalized abdominal pain, mid periumbilical, with some vague discomfort throughout but no specific area of discomfort. There is no CVA discomfort on the right and she had minimal CVA discomfort on the left. She did not have any rash or abdomen, her belly was not distended, bowel sounds are present, extremities are otherwise nonswollen and nontender. HEENT exam was normal, neck was supple, there was no anterior or posterior or supraclavicular nodes, her lungs were clear, there was no expiratory wheeze or rales, she was slightly tachypneic before relief of pain. Her heart rate and rhythm is regular, PMI left chest, good radial and dorsalis pedis pulses, no peripheral edema, and her skin was warm and dry. Neurologic exam was appropriate, psychiatric exam is appropriate. Her laboratory data and records were reviewed from the , and they will be repeated here because she still appears to be ill.. Health Status Allergies: Allergic Reactions (Selected) Severity Not Documented Shellfish- No reactions were documented.. Medications: (Selected) Prescriptions Prescribed Acidophilus Extra Strength oral capsule: 1 cap(s), PO, Daily, 14 cap(s), 0 Refill(s) Pepcid 20 mg oral tablet: 20 mg = 1 tab(s), PO, BID, for 14 day(s), 28 tab(s), 0 Refill(s) Zofran ODT 4 mg oral tablet, disintegratin mg = 1 tab(s), PO, BID, 4 tab(s), 0 Refill(s) omeprazole 20 mg oral delayed release capsule: 20 mg = 1 cap(s), PO, Daily, for 14 day(s), 14 cap(s), 0 Refill(s) work note: See Instructions, Please excuse from work 10/24/19, 1 EA, 0 Refill(s). Past Medical/ Family/ Social History Family history: No family history items have been selected or recorded.. Social history: Social & Psychosocial Habits Alcohol 10/28/2019 Alcohol Use: Current Frequency: 1-2 times per year Substance Abuse 10/28/2019 Substance use: Never Tobacco 10/28/2019 Smoking tobacco use: Former smoker, quit more Electronic Cigarette/Vaping 10/28/2019 Electronic Cigarette Use: Never . Problem list: Active Problems (2) GERD (gastroesophageal reflux disease) Migraine . Medical Decision Making Orders Launch Orders Laboratory: Triage Panel 12 (Order): Urine, Stat collect, 10/28/2019 23:42 EST, Nurse collect, Clean Catch Test Urine 1 (Order): Urine, Stat collect, 10/28/2019 23:42 EST, Nurse collect Urine Culture (Order): Urine, Clean Catch, 10/28/2019 23:41 EST, Stat collect, Nurse collect Urinalysis with Culture, if indicated Standard (Order): Urine, Stat collect, 10/28/2019 23:40 EST, Nurse collect Lipase Level (Order): Blood, Stat collect, 10/28/2019 23:40 EST, Lab Collect CMP Standard (Order): Blood, Stat collect, 10/28/2019 23:40 EST, Lab Collect CBC w/ Auto Diff (Order): Blood, Stat collect, 10/28/2019 23:40 EST, Lab Collect Pharmacy: Protonix IV (Order): 40 mg, IV Push, Once Toradol (Order): 30 mg, IV Push, Once Ativan injection (Order): 0.5 mg, IV Push, Once Zofran (Order): 4 mg, IV Push, Once Sodium Chloride 0.9% intravenous solution (Order): 1,000 mL, 100 mL/hr, IV, Once Radiology: CT Abdomen/Pelvis w/o Contrast (Order): 10/28/2019 23:39 EST Stat, mid abd pain, Allow Modification Per Radiologist, Transport Mode: Patient Bed, No, Launch Orders Pharmacy: ertapenem int + Sodium Chloride 0.9% intravenous solution 100 mL (Order): 1 gm, 100 mL/hr, IV Piggyback, Once Dilaudid (Order): 0.5 mg, IV Push, Once. Results review: Interpretation Abnormal results Slightly elevated WBC. Radiology results: CT read by radiologist, notes a distended distal tip to the appendix, concern for early appendicitis, also reveals small gallstones, not seen on the previous CT.. Reexamination/ Reevaluation Interventions: With initial medications provided for the pain in the emergency room, the patient obtained some relief, but her relief was more dramatic with Dilaudid. Her abdomen membranes soft, she was informed of the results of her CT, and the need for observation admission. Dr. Yeung, general surgeon, was consulted, and stated that this was an observation case, that there was no need for surgery this evening, and that the patient should be written for a surgical consult in the morning, on the next surgical rotation.. Impression and Plan Diagnosis Abdominal pain in female ([id number]-GO R10.9, Discharge, Medical) Calls-Consults - Radiology: Called, concerned that there might be an appendix issue;; , Dr Yeung: Recommend admission to hospitalist service, and consult to am surgeon; Dr Guzman, 0106 hours, ok. NPO> . Plan Disposition: Admit time 10/29/2019 01:09:00, Megan SHEA, Janet Gomez, hospitalist. . Counseled: Patient, Regarding diagnosis, Regarding diagnostic results, Regarding treatment plan, Regarding prescription, Patient indicated understanding of instructions. [Electronically Signed on: 10/29/2019 02:40 EST] Syd Davis DO [Electronically Signed on: 10/29/2019 06:13 EST] Syd Davis DO [Verified on: 10/29/2019 02:40 EST] Syd Davis DO [facility] ED Patient Education Noteon 10-29-2019 ED Patient Education Note Education Materials [facility] ED Patient Summaryon 019 ED Patient Summary [facility] - Emergency Department [address] [place] [id number] PATIENT DISCHARGE INSTRUCTIONS Patient Information Name: LYNNE LAWS Age: 34 Years Date of : 1985 Reason For Visit: Nausea; Vomiting; ABD PAIN Arrival Time: 10/28/2019 23:15:38 Primary Care Physician: Provider, None Attending Physician: Lizbeth Trejo MD Comment: Visit Diagnosis: Diagnoses This Visit Abdominal pain in female (R10.9) Nausea ([id number]) Vomiting ([id number]) Prescription Information: If you have been given a prescription for narcotics, seek immediate medical attention if you have any difficulty breathing or any sudden status changes such as confusion and sleepiness. If you or anyone you know is experiencing suicidal thoughts, mental health, alcohol and/or drug addiction problems; contact the [facility] 20/06 Crisis Hotline -Text 4HIZB is 279958. If you received any narcotics, sedation, or any other medication that causes drowsiness for the next 24 hours, unless otherwise directed: ? Do not drive a car. ? Do not operate machinery such as power tools, lawn mowers, drills, sewing machines, or stoves ? Avoid alcoholic beverages and drugs for allergies, nerves, or sleep ? Do not make important personal or business decisions or sign any legal documents Medication Information: The exam and treatment you received today in the [facility] Emergency Department were for an urgent problem and are not intended as complete care. It is important for you to follow up with a doctor, nurse practitioner, or physician?s ex assistant/program director for ongoing care. If your symptoms become worse or you do not improve as expected and you are unable to reach your usual health care provider, you should return to the Emergency Department, we are available 24 hours a day. For those patients who have received Radiology results, the interpretation of your X-ray as given to you by our Emergency Department physician is only a preliminary report. The Radiologist will review your films and if there is a change in the diagnosis you will be notified by phone. Please make sure you have provided a working phone number so we can reach you if necessary. In the event that you had a lab culture while you were a patient in the Emergency Department, you will be notified by phone if there is a need to change your antibiotic. Please make sure you have provided a working phone number so we can reach you if necessary. [facility] Emergency Department has provided you with a complete list of medications post discharge. Please inform your auto mechanics teacher/provider of your visit and for further instruction on these medications. Any specific questions regarding your chronic medications and dosages should be discussed with your primary care physician(s) and/or pharmacist. Medications to Continue That Have Not Changed Other Medications famotidine (Pepcid 20 mg oral tablet) 1 tab(s) Oral 2 times a day for 14 Days. Refills: 0. lactobacillus acidophilus (Acidophilus Extra Strength oral capsule) 1 cap(s) Oral every day. Refills: 0. [facility] Prescription (work note) Please excuse from work 10/24/19. Refills: 0. omeprazole (omeprazole 20 mg oral delayed release capsule) 1 cap(s) Oral every day for 14 Days. Refills: 0. ondansetron (Zofran ODT 4 mg oral tablet, disintegrating) 1 tab(s) Oral 2 times a day. Refills: 0. Visit Information Allergies: Substance Reaction Symptoms Type Comments shellfish Drug Vital Signs: Vitals and Measurements this Visit (last charted value for your 10/28/2019 visit) Vital Signs This Visit Temperature Oral: 36.4 DegC Peripheral Pulse Rate: 90 bpm Respiratory Rate: 16 br/min Systolic Blood Pressure: 109 mmHg Diastolic Blood Pressure: 75 mmHg SpO2: 100 % Oxygen Therapy: Room air Measurements This Visit Height/Length Dosin.000 cm Height/Length Estimated: 180.000 cm Weight Dosin.180 kg Weight Estimated: 86.180 kg Problems List: Problem Onset Comments GERD (gastroesophageal reflux disease) Migraine Patient Education Viruses or Bacteria What?s got you sick? Antibiotics only treat bacterial infections. Viral illnesses cannot be treated with antibiotics. When an antibiotic is not prescribed, ask your healthcare professional for tips on how to relieve symptoms and feel better. Usual Cause Illness Viruses Bacteria Antibiotic Needed Cold/Runny Nose NO Bronchitis/Chest Cold (in otherwise healthy children and adults) NO Whooping Cough Yes Flu NO Strep Throat Yes Sore Throat (except strep) NO Fluid in the middle ear (otitis media with effusion) NO Urinary Tract Infection Yes Antibiotics Aren?t Always the Answer www.cdc.gov/getsmart GET SMART Know When Antibiotics Work U.S. Department of Health and Human Services Centers for Disease Control and Prevention July 2014 [facility] Education Noteon 10-29-2019 Education Note Education Materials Gastroenterology Abdominal Pain, Adult Abdominal pain can be caused by many things. Often, abdominal pain is not serious and it gets better with no treatment or by being treated at home. However, sometimes abdominal pain is serious. Your health care provider will do a medical history and a physical exam to try to determine the cause of your abdominal pain. Follow these instructions at home: ? Take gipu-fwh-wmfwlfm and prescription medicines only as told by your health care provider. Do not take a laxative unless told by your health care provider. ? Drink enough fluid to keep your urine clear or pale yellow. ? Watch your condition for any changes. ? Keep all follow-up visits as told by your health care provider. This is important. Contact a health care provider if: ? Your abdominal pain changes or gets worse. ? You are not hungry or you lose weight without trying. ? You are constipated or have diarrhea for more than 2?3 days. ? You have pain when you urinate or have a bowel movement. ? Your abdominal pain wakes you up at night. ? Your pain gets worse with meals, after eating, or with certain foods. ? You are throwing up and cannot keep anything down. ? You have a fever. Get help right away if: ? Your pain does not go away as soon as your health care provider told you to expect. ? You cannot stop throwing up. ? Your pain is only in areas of the abdomen, such as the right side or the left lower portion of the abdomen. ? You have bloody or black stools, or stools that look like tar. ? You have severe pain, cramping, or bloating in your abdomen. ? You have signs of dehydration, such as: ? Dark urine, very little urine, or no urine. ? Cracked lips. ? Dry mouth. ? Sunken eyes. ? Sleepiness. ? Weakness. This information is not intended to replace advice given to you by your health care provider. Make sure you discuss any questions you have with your health care provider. Document Released: 08/24/2006 Document Revised: 06/03/2017 Document Reviewed: 04/27/2017 [employer] Interactive Patient Education ? 2019 [employer]. Normal [facility] Extra Greenon 10-29-2019 Tube Collected Yes [facility] Comment on above: Performed By: #### 1 [id number], [id number], [id number], [id number], [id number] #### [facility] (DEFAULT) [address] [place] [address] Extra Redon 10-29-2019 Tube Collected Yes [facility] Comment on above: Performed By: #### 1 [id number], [id number], [id number], [id number] #### [facility] (DEFAULT) [address] [place] [address] Inpatient Patient Summaryon 10-29-2019 Inpatient Patient Summary [address] [address] Patient Discharge Instructions Name: LYNNE LAWS : 1985 Patient Address: [address] [place] [address] Primary Care Provider: Name: Provider, None Phone: After you are discharged if you find you have any questions, please, call [phone] ext [phone] to speak to a nurse. Discharge Diagnosis: Abdominal pain in female Prescription Information: If you have been given a prescription for narcotics, seek immediate medical attention if you have any difficulty breathing or any sudden status changes such as confusion and sleepiness. If you or anyone you know is experiencing suicidal thoughts, mental health, alcohol and/or drug addiction problems; contact the [facility] 20/06 Crisis Hotline -Text 4HOPE to 351258. If you received any narcotics, sedation, or any other medication that causes drowsiness for the next 24 hours, unless otherwise directed: ? Do not drive a car. ? Do not operate machinery such as power tools, lawn mowers, drills, sewing machines, or stoves ? Avoid alcoholic beverages and drugs for allergies, nerves, or sleep ? Do not make important personal or business decisions or sign any legal documents [facility] would like to thank you for allowing us to assist you with your healthcare needs. The following includes patient education materials and information regarding your injury/illness. LYNNE LAWS has been given the following list of follow-up instructions, prescriptions, and patient education materials: Follow-up Instructions With: Address: When: None Provider Medications During the course of your visit, your medication list was updated with the most current information. The details of those changes are reflected below: New Medications [facility]/pharm[facility] #[id number], [address], [place] [id number], [phone] ondansetron (Zofran ODT 4 mg oral tablet, disintegrating) 1 tab(s) Oral Every 8 hours as needed as needed for nausea/vomiting. Refills: 0. Medications to Continue That Have Not Changed Other Medications lactobacillus acidophilus (Acidophilus Extra Strength oral capsule) 1 cap(s) Oral every day. Refills: 0. Misc Prescription (work note) Please excuse from work 10/24/19. Refills: 0. It is important to always keep an active list of medications available so that you can share with other providers and manage your medications appropriately. As an additional courtesy, we are also providing you with your final active medications list that you can keep with you. lactobacillus acidophilus (Acidophilus Extra Strength oral capsule) 1 cap(s) Oral every day. Refills: 0. Misc Prescription (work note) Please excuse from work 10/24/19. Refills: 0. ondansetron (Zofran ODT 4 mg oral tablet, disintegrating) 1 tab(s) Oral Every 8 hours as needed as needed for nausea/vomiting. Refills: 0. Take only the medications listed above. Contact your doctor prior to taking any medications not on this list. Medication leaflets, if any, will display below Diet & Activity Patient Activity Level: As Tolerated Patient Diet: Patient Activity Restrictions: Patient education materials, if any, will display below Abdominal Pain, Adult Abdominal pain can be caused by many things. Often, abdominal pain is not serious and it gets better with no treatment or by being treated at home. However, sometimes abdominal pain is serious. Your health care provider will do a medical history and a physical exam to try to determine the cause of your abdominal pain. Follow these instructions at home: ? Take sjgm-gqd-hunzixk and prescription medicines only as told by your health care provider. Do not take a laxative unless told by your health care provider. ? Drink enough fluid to keep your urine clear or pale yellow. ? Watch your condition for any changes. ? Keep all follow-up visits as told by your health care provider. This is important. Contact a health care provider if: ? Your abdominal pain changes or gets worse. ? You are not hungry or you lose weight without trying. ? You are constipated or have diarrhea for more than 2?3 days. ? You have pain when you urinate or have a bowel movement. ? Your abdominal pain wakes you up at night. ? Your pain gets worse with meals, after eating, or with certain foods. ? You are throwing up and cannot keep anything down. ? You have a fever. Get help right away if: ? Your pain does not go away as soon as your health care provider told you to expect. ? You cannot stop throwing up. ? Your pain is only in areas of the abdomen, such as the right side or the left lower portion of the abdomen. ? You have bloody or black stools, or stools that look like tar. ? You have severe pain, cramping, or bloating in your abdomen. ? You have signs of dehydration, such as: ? Dark urine, very little urine, or no urine. ? Cracked lips. ? Dry mouth. ? Sunken eyes. ? Sleepiness. ? Weakness. This information is not intended to replace advice given to you by your health care provider. Make sure you discuss any questions you have with your health care provider. Document Released: 08/24/2006 Document Revised: 06/03/2017 Document Reviewed: 04/27/2017 [employer] Interactive Patient Education ? 2019 [employer] Viruses or Bacteria What?s got you sick? Antibiotics only treat bacterial infections. Viral illnesses cannot be treated with antibiotics. When an antibiotic is not prescribed, ask your healthcare professional for tips on how to relieve symptoms and feel better. Usual Cause Illness Viruses Bacteria Antibiotic Needed Cold/Runny Nose NO Bronchitis/Chest Cold (in otherwise healthy children and adults) NO Whooping Cough Yes Flu NO Strep Throat Yes Sore Throat (except strep) NO Fluid in the middle ear (otitis media with effusion) NO Urinary Tract Infection Yes Antibiotics Aren?t Always the Answer www.cdc.gov/getsmart GET SMART Know When Antibiotics Work U.S. Department of Health and Human Services Centers for Disease Control and Prevention July 2014 [facility] Lipaseon 10-29-2019 Lipase Level 32.0 IU/L Normal 22.0-51.0 [facility] Comment on above: Performed By: #### 1 [id number], [id number], [id number], [id number], [id number], [id number] #### [facility] (DEFAULT) [address] [place] [address] Nutrition Noteon 10-29-2019 Nutrition Note Pt admitted for abdo jamie pain, 1d of vomiting and ongoing nausea. Per CT scan, Pt with multiple kidney stones, possible gallstones and questionable early appendicitis also noted by MD; surgical consult pending. Pt is currently NPO. Pt is at low nutrition risk at this time, however, if diet unable to be advanced and tolerated within 5 days or vomiting resumes will re-evaluate need for nutrition assessment. Secondary to Pt with hx of kidney stones in the past, depending on type might do well with a low oxalate diet (tea, chocolate, nuts, pb, spinach). Would encourage adequate fluid, minimum 2L/d. Will continue to monitor closely. [facility] Pharmacy Noteon 10-29-2019 Pharmacy Note I have reviewed this patient's current medication list including prescription medications, OTC products, vitamins and supplements for the following: Med Rec: Complete Action: none required Renal Function: estimated CrCl: 138.91 ml/min Renally dosed medications:No dose adjustment with current CrCl Action: None required Anticoagulation: None Action: none required Antibiotics: None Action: None required Pain Management: Narcotic pain medication(s): Hydrocodone/APAP - moderate pain and Hydromorphone IV - moderate pain Non-narcotic pain medication(s): Tylenol Action: OARRS and risk factors reviewed Yes [Electronically Signed on: 10/29/2019 11:46 EST] Korina Idania Marx [Verified on: 10/29/2019 11:46 EST] Korina Idania Marx [facility] Test Urine 1on U Preg Negative [facility] Comment on above: Performed By: #### 1 [id number], [id number], [id number], [id number], [id number], [id number] #### [facility] (DEFAULT) [address] [place] [address] U Preg Internal Control Pass [facility] Comment on above: Performed By: #### 1 [id number], [id number], [id number], [id number], [id number], [id number] #### [facility] (DEFAULT) [address] [place] [address] Progress Note - Nurseon 12-0 INR Coag (Bld) [Relative time] Pt states abd pain in RLQ that feels better when pushed upon. Abd tenderness in upper midline that feels worse when palpated. Associated nausea being managed with zofran. No other issues or concerns at this time. [Electronically Signed on: 10/29/2019 11:12 EST] Jan Wylie RN [Verified on: 10/29/2019 11:12 EST] Dejan LANDONJan Robi [facility] Progress Note - Nurse Pt arrives to ED r oom 6 complaining of vomiting all day today. Pt states that she has had 7 episodes of emesis today and she does not know why. She states she is unable to eat anything. Pt states she last ate toast around 10pm yesterday, and before that ate some sue around 6pm. Pt states that she was just seen in this ED on 10-24-19 for flank pain and was given an antibiotic and zofran. She states that she has one dose of her antibiotic left but used all of the zofran. Pt states her last BM was this morning without issues. Pt denies any other complaints at this time. She is currently resting on cart awaiting examination. [Electronically Signed on: 10/28/2019 23:27 EST] Louisa Morrison RN [Verified on: 10/28/2019 23:27 EST] Louisa Morrison RN [facility] Triage Panel 1210-29-2019 Triage Internal Control Pass [facility] Comment on above: Performed By: #### 1 [id number], [id number], [id number], [id number], [id number], [id number] #### [facility] (DEFAULT) [address] [place] [address] U Amph Scr Negative [facility] Comment on above: Performed By: #### 1 [id number], [id number], [id number], [id number], [id number], [id number] #### [facility] (DEFAULT) [address] [place] [address] U Edel Scr Negative [facility] Comment on above: Performed By: #### 1 [id number], [id number], [id number], [id number], [id number], [id number] #### [facility] (DEFAULT) [address] [place] [address] U Benzodia Scr Negative [facility] Comment on above: Performed By: #### 1 [id number], [id number], [id number], [id number], [id number], [id number] #### [facility] (DEFAULT) [address] [place] [address] U Cannab Scrn Negative [facility] Comment on above: Performed By: #### 1 [id number], [id number], [id number], [id number], [id number], [id number] #### [facility] (DEFAULT) [address] [place], [place] [address] U Cocaine Scr Negative [facility] Comment on above: Performed By: #### 1 [id number], [id number], [id number], [id number], [id number], [id number] #### [facility] (DEFAULT) [address] [place] [address] U Methadone Scr Negative [facility] Comment on above: Performed By: #### 1 [id number], [id number], [id number], [id number], [id number], [id number] #### [facility] (DEFAULT) [address] [place] [address] U Methamp Scrn Negative [facility] Comment on above: Performed By: #### 1 [id number], [id number], [id number], [id number], [id number], [id number] #### [facility] (DEFAULT) [address] [place] [address] U Opiate Scr Negative [facility] Comment on above: Performed By: #### 1 [id number], [id number], [id number], [id number], [id number], [id number] #### [facility] (DEFAULT) [address] [place] [address] U Oxycod Scr Negative [facility] Comment on above: Performed By: #### 1 [id number], [id number], [id number], [id number], [id number], [id number] #### [facility] (DEFAULT) [address] [place] [address] U Phencyclidine Scr Negative Normal [facility] Comment on above: Performed By: #### 1 [id number], [id number], [id number], [id number], [id number], [id number] #### [facility] (DEFAULT) [address] [place] [address] U Propoxyphene Scr Negative [facility] Comment on above: Performed By: #### 1 [id number], [id number], [id number], [id number], [id number], [id number] #### [facility] (DEFAULT) [address] [place] [address] U Tricyclic Antidepress Scr Negative [facility] Comment on above: Performed By: #### 1 [id number], [id number], [id number], [id number], [id number], [id number] #### [facility] (DEFAULT) [address] [place] [address] Urine Source Clean Catch [facility] Comment on above: Performed By: #### 1 [id number], [id number], [id number], [id number], [id number], [id number] #### [facility] (DEFAULT) [address] [place], [place] [address] UA [id number] 10-29-2019 RBC (U) [#/Vol] None Seen [facility] Comment on above: Order Comment: Urina lysis Microscopic order added on by [employer] Rules system. Performed By: #### 1 [id number], [id number], [id number], [id number], [id number], [id number] #### [facility] (DEFAULT) [address] [place], [place] [address] UA Bacteria None [facility] Comment on above: Order Comment: Urina lysis Microscopic order added on by [employer] Rules system. Performed By: #### 1 [id number], [id number], [id number], [id number], [id number], [id number] #### [facility] (DEFAULT) [address] [place] [address] UA Hyal Cast 0-5 [facility] Comment on above: Order Comment: Urina lysis Microscopic order added on by [employer] Rules system. Performed By: #### 1 [id number], [id number], [id number], [id number], [id number], [id number] #### [facility] (DEFAULT) [address] [place] [address] UA Squam Epi Rare [facility] Comment on above: Order Comment: Urina lysis Microscopic order added on by [employer] Expert Rules system. Performed By: #### 1 [id number], [id number], 8338380, 85523524, 8931374, [id number] #### [facility] (DEFAULT) [address] [place] [address] UA WBC None Seen [facility] Comment on above: Order Comment: Urina lysis Microscopic order added on by [employer] Expert Rules system. Performed By: #### 1 [id number], [id number], 6549835, 69233821, 0667807, [id number] #### [facility] (DEFAULT) [address] [place] [address] UA w Culture if Ind Standard on 10-29-2019 Color (U) Yellow [facility] Comment on above: Performed By: #### 1 [id number], 7988222263, 2420760, 19439620, 1329482, [id number] #### [facility] (DEFAULT) [address] [place] [address] Culture? Not Indicated [facility] Comment on above: Performed By: #### 1 [id number], 2181624883, 1762817, 39213772, 2175963, 6920494711 #### [facility] (DEFAULT) [address] [place] [address] 98933 Glucose (U) [Mass/Vol] Negative Normal [facility] Comment on above: Performed By: #### 1 [id number], 5062494692, 6067157, 14120684, 4018713, 5384778425 #### [facility] (DEFAULT) [address] [place] [address] 29510 Ketones Ql (U) Negative Normal [facility] Comment on above: Performed By: #### 1 [id number], 5469855723, 2595160, 25015762, 5445638, 3388983637 #### [facility] (DEFAULT) [address] [place] [address] Micro? Indicated [facility] Comment on above: Performed By: #### 1 [id number], 3944956667, 1573838, 65825332, 5921477, [id number] #### [facility] (DEFAULT) [address] [place] [address] 10934 UA Bilirubin Negative Normal [facility] Comment on above: Performed By: #### 1 [id number], 6034415746, 6994035, 89704135, 2634714, 5658209192 #### [facility] (DEFAULT) [address] [place] [address] 35892 UA Blood Negative Normal NEGATIVE [facility] Comment on above: Performed By: #### 1 [id number], 2025587139, 9556164, 24689369, 1373676, 6722656882 #### [facility] (DEFAULT) [address] [place] [address] 32869 UA Clarity CLEAR Normal CLEAR [facility] Comment on above: Performed By: #### 1 [id number], 5338272967, 4005109, 03832491, 3820492, 0061326300 #### [facility] (DEFAULT) [address] [place] [address] 18178 UA Leuk Est Negative Normal NEGATIVE [facility] Comment on above: Performed By: #### 1 [id number], 1018261174, 3836089, 85528400, 2717300, 0580567990 #### [facility] (DEFAULT) [address] [place] [address] 66167 UA Nitrite Negative Normal NEGATIVE [facility] Comment on above: Performed By: #### 1 [id number], 3777543614, 1792025, 73747463, 8133750, 5058764566 #### [facility] (DEFAULT) [address] [place] [address] 53889 UA pH 5.5 Normal 5-8 [facility] Comment on above: Performed By: #### 1 [id number], 7078438287, 4900024, 68914157, 9419314, 5800494097 #### [facility] (DEFAULT) [address] [place] [address] UA Protein TRACE Abnormal NEGATIVE [facility] Comment on above: Performed By: #### 1 [id number], 1122792577, 8581199, 24333649, 3640915, 7047099579 #### [facility] (DEFAULT) [address] [place] [address] UA Spec Grav 1.015 Normal 1.001-1.035 [facility] Comment on above: Performed By: #### 1 [id number], 2932346259, 0099986, 75527673, 6176916, 2176759154 #### [facility] (DEFAULT) [address] [place] [address] 58021 UA Urobilinogen 0.2 mg/dL Normal 0.2-1.0 [facility] Comment on above: Performed By: #### 1 [id number], 1913616124, 9216430, 55346246, 1918210, 1318355831 #### [facility] (DEFAULT) [address] [place] [address] 45764 Urine Source Clean Catch Normal [facility] Comment on above: Performed By: #### 1 [id number], 8905467893, 5032476, 83476748, 0309340, 4807284843 #### [facility] (DEFAULT) [address] [place] [address] Breakpoint UA Normal [facility] Comment on above: Performed By: #### 1 [id number], 5335831771, 8099140, 20980603, 0016361, 2401634139 #### [facility] (DEFAULT) [address] [place] [address] US Gallbladderon 10-29-2019 US Gallbladder Ultrasound gallbladd er CLINICAL: Right upper quadrant abdominal pain with vomiting. Abnormal CT. TECHNIQUE: Dedicated transabdominal right upper quadrant ultrasound was performed with attention to the gallbladder. FINDINGS: Comparison made to CT abdomen and pelvis dated 10/29/2019 The gallbladder is normal in appearance without focal wall abnormality. Echogenic shadowing gallstone is noted within the gallbladder. The gallbladder wall measures 3 mm in thickness. No pericholecystic fluid is seen, and the sonographic Archer's sign is negative. The common bile duct measures 3.8 mm in diameter. There is no intrahepatic bile duct dilatation. The visualized liver is normal in appearance. The visualized head and body of the pancreas are normal. Portions of the distal pancreas are obscured by overlying bowel gas. The right kidney measures 11.3 x 5.1 x 5.6 cm. There is no hydronephrosis in the right kidney. IMPRESSION: 1. Cholelithiasis without sonographic findings of acute cholecystitis. Final Dictated by: Isabell Damon Dictated DT/TM: 10/29/19 8:04 Signed (Electronic Signature): Isabell Damon 10/29/19 8:07 am Technologist: [facility] Coding Summaryon 10-24-2019 Coding Summary CODING DATE: 019 [facility] STATUS: PAYOR: Self Pay ADMIT DX: REASON FOR VISIT DX: R10.9 Unspecified abdominal pain FINAL DX: PRINCIPAL: R10.9 Unspecified abdominal pain SECONDARY: R11.2 Nausea with vomiting, unspecified Z87.442 Personal history of urinary calculi PYMT PROC APC STAT DESCRIPTION DOCTOR NAME DATE NOTE: The code number assigned matches the documented diagnosis and / or procedure in the patient's chart. However, the narrative phrase printed from the coding software may appear abbreviated, or result in slightly different terminology. Coded By: Zeyad Roman' Date Saved: 10/24/2019 05:06 pm [facility] Coding Summary CODING DATE: 019 FINAL [facility] STATUS: Home PAYOR: Self Pay APC DESCRIPTION 5523 Level 3 Imaging without Contrast ADMIT DX: REASON FOR VISIT DX: R10.9 Unspecified abdominal pain FINAL DX: PRINCIPAL: R10.9 Unspecified abdominal pain SECONDARY: R11.2 Nausea with vomiting, unspecified Z87.442 Personal history of urinary calculi PYMT PROC APC STAT DESCRIPTION DOCTOR NAME DATE NOTE: The code number assigned matches the documented diagnosis and / or procedure in the patient's chart. However, the narrative phrase printed from the coding software may appear abbreviated, or result in slightly different terminology. Coded By: Zeyad Roman' Date Saved: 10/24/2019 05:04 pm [facility] .Auto Diff 1on 10-23-2019 Auto Reynolds % 6 % Normal -12 [facility] Comment on above: Performed By: #### 1 [id number], 0449509575, 1292467, 22191662, 5294558, 2917283167 #### [facility] (DEFAULT) [address] [place] [address] 98319 Baso Abs# 0.0 x10 Normal 0.0-0.2 [facility] Comment on above: Performed By: #### 1 [id number], 6213334955, 3399743, 30719806, 5574005, 8374698247 #### [facility] (DEFAULT) [address] [place] [address] 00441 Basophils/100 WBC (Bld) 0.2 % Normal 0.2-2.0 [facility] Comment on above: Performed By: #### 1 [id number], 7991901661, 8795680, 26488327, 8152945, 4668111585 #### [facility] (DEFAULT) [address] [place] [address] 40659 Eos Abs# 0.1 x10 Normal 0.0-0.4 [facility] Comment on above: Performed By: #### 1 [id number], 9825483335, 7186406, 31357061, 9448242, 9881437100 #### [facility] (DEFAULT) [address] [place] [address] 35359 Eosinophils/100 WBC (Bld) 1.8 % Normal 0.9-4.0 [facility] Comment on above: Performed By: #### 1 155243927, 4062984114, 8013764, 38562446, 3919604, 7270659456 #### [facility] (DEFAULT) [address] [place] [address] 72897 Lymphocytes (Bld) [#/Vol] 2.0 x10 Normal 1.3-2.9 [facility] Comment on above: Performed By: #### 1 [id number], 7576749455, 1599272, 01699026, 4337203, 3978070959 #### [facility] (DEFAULT) [address] [place] [address] 81653 Lymphocytes/100 WBC (Bld) 30 % Normal 14-48 [facility] Comment on above: Performed By: #### 1 [id number], 7935851871, 9703363, 97257697, 4699971, 7737231698 #### [facility] (DEFAULT) [address] [place] [address] 33951 Reynolds Abs# 0.4 x10 Normal 0.0-0.8 [facility] Comment on above: Performed By: #### 1 180957418, 8901343726, 0406195, 18909814, 4022382, 2448246640 #### [facility] (DEFAULT) [address] [place] [address] Neut Abs# 4.0 x10 Normal 1.5-9.2 [facility] Comment on above: Performed By: #### 1 302422044, 2564365881, 4508879, 83676049, 8159846, 8114215518 #### [facility] (DEFAULT) [address] [place] [address] Neutrophils/100 WBC (Bld) 62 % Normal 44-88 [facility] Comment on above: Performed By: #### 1 022994795, 3490776462, 4294107, 75917990, 0875771, 4101451932 #### [facility] (DEFAULT) [address] [place] [address] CBC w/ Auto Diffon Erythrocyte distribution width (RBC) [Ratio] 12.6 % Normal 11.5-15.0 [facility] Comment on above: Performed By: #### 1 440355936, 8694167, 11775383, 7825182, 5662390677 ####[facility] (DEFAULT)[address] [place] [address] Hematocrit (Bld) [Volume fraction] 38.0 % Normal 33.7-40.4 [facility] Comment on above: Performed By: #### 1 565321539, 8100132, 41637272, 8081646, 6892677128 ####[facility] (DEFAULT)[address] [place] [address] Hemoglobin (Bld) [Mass/Vol] 12.7 g/dL Normal 11.3-15.9 [facility] Comment on above: Performed By: #### 1 402031326, 7521870, 04702181, 4591255, 7613826431 ####[facility] (DEFAULT)[address] [place] [address] Man Diff? Auto Normal [facility] Comment on above: Performed By: #### 1 897284962, 2321166, 65520096, 2980188, 7773662165 ####[facility] (DEFAULT)[address] [place] [address] 37435 MCH (RBC) [Entitic mass] 31 pg Normal 24-34 [facility] Comment on above: Performed By: #### 1 520664688, 3978800, 12026131, 2276758, 2741674425 ####[facility] (DEFAULT)[address] [place] [address] 02470 MCHC (RBC) [Mass/Vol] 33 g/dL Normal 26-37 [facility] Comment on above: Performed By: #### 1 264191009, 5941272, 51647021, 5404992, 9246932961 ####[facility] (DEFAULT)[address] [place] [address] MCV (RBC) [Entitic vol] 93 fL Normal 81-100 [facility] Comment on above: Performed By: #### 1 042650748, 2316207, 28019683, 1475887, 1996918840 ####[facility] (DEFAULT)[address] [place] [address] Platelet mean volume (Bld) [Entitic vol] 10.2 fL Normal 6.3-10.2 [facility] Comment on above: Performed By: #### 1 041057004, 0082243, 29992524, 6448134, 3800177991 ####[facility] (DEFAULT)[address] [place] [address] Platelets (Bld) [#/Vol] 231 x10 Normal 138-427 [facility] Comment on above: Performed By: #### 1 648124633, 3755539, 52537275, 2547240, 0486167527 ####[facility] (DEFAULT)[address] [place] [address] RBC (Bld) [#/Vol] 4.10 x10 Normal 3.70-5.30 [facility] Comment on above: Performed By: #### 1 796985888, 0996000, 71534100, 0532001, 0743636803 ####[facility] (DEFAULT)[address] [place] [address] WBC (Bld) [#/Vol] 6.5 x10 [facility] Comment on above: Performed By: #### 1 502148578, 8372637, 53486446, 2320925, 5813852463 ####[facility] (DEFAULT)[address] [place] [address] CMP Standardon 10-23-2019 eGFR Non AA >60 [facility] Comment on above: Performed By: #### 1 [id number], 1124699286, 2625517, 97360242, 0224654, 4766468810 #### [facility] (DEFAULT) [address] [place] [address] eGFR AA >60 [facility] Comment on above: Result Comment: Neonatal Intensive Care Nurse elizabeth Kidney disease could be indicated at eGFRs of less than 60 ml/min/1.73m2. Kidney Failure is indicated at less than 15 ml/min/1.73m2 Performed By: #### 1 [id number], 7101825838, 0769369, 03690837, 7299831, 8111529321 #### [facility] (DEFAULT) [address] [place] [address] 33576 Albumin [Mass/Vol] 4.4 g/dL Normal 3.5-5.0 [facility] Comment on above: Performed By: #### 1 898634302, 9278840238, 2181799, 70965492, 0302799, 1626548419 #### [facility] (DEFAULT) [address] [place] [address] 58243 Albumin/Globulin [Mass ratio] 1.4 {ratio} Normal 1.4-2.6 [facility] Comment on above: Performed By: #### 1 [id number], 3850421964, 4748712, 72953039, 7100425, 0103569700 #### [facility] (DEFAULT) [address] [place] [address] 18557 Alk Phos 34 IU/L Normal 32-91 [facility] Comment on above: Performed By: #### 1 737491663, 5688798805, 6896490, 45043024, 7819433, 5366353375 #### [facility] (DEFAULT) [address] [place] [address] 30242 ALT/SGPT 12.0 IU/L Low 14.0-54.0 [facility] Comment on above: Performed By: #### 1 259826106, 2948811020, 4162526, 07800445, 1866011, 6992096694 #### [facility] (DEFAULT) [address] [place] [address] 16389 Anion gap [Moles/Vol] 16.0 mmol/L Normal 5.0-19.0 [facility] Comment on above: Performed By: #### 1 040872211, 2651344153, 1514433, 10682453, 9981429, 3424180857 #### [facility] (DEFAULT) [address] [place] [address] 33570 AST/SGOT 15 IU/L Normal 15-41 [facility] Comment on above: Performed By: #### 1 986233110, 1186706744, 6272169, 37497381, 1137602, 3119400089 #### [facility] (DEFAULT) [address] [place] [address] 61036 Bili Total 0.3 mg/dL Normal 0.3-1.2 [facility] Comment on above: Performed By: #### 1 353999089, 8740621316, 4818032, 25653186, 4026588, 4246713399 #### [facility] (DEFAULT) [address] [place] [address] 34519 Calcium [Mass/Vol] 9.3 mg/dL Normal 8.9-10.3 [facility] Comment on above: Performed By: #### 1 [id number], 0370058314, 5756483, 24551206, 8445133, 8516678934 #### [facility] (DEFAULT) [address] [place] [address] 44084 Chloride [Moles/Vol] 107 mmol/L Normal 101-111 [facility] Comment on above: Performed By: #### 1 031264901, 2716218329, 3742197, 35113070, 6218619, 2316783097 #### [facility] (DEFAULT) [address] [place] [address] 47303 CO2 [Moles/Vol] 23 mmol/L Normal 21-32 [facility] Comment on above: Performed By: #### 1 550213060, 1377215945, 6788466, 57693010, 5296927, 6789556306 #### [facility] (DEFAULT) [address] [place] [address] 81400 Creatinine [Mass/Vol] 0.62 mg/dL Normal 0.60-1.30 [facility] Comment on above: Performed By: #### 1 [id number], 5500144119, 7421085, 04866798, 1833412, 7965228196 #### [facility] (DEFAULT) [address] [place] [address] 37789 Globulin (S) [Mass/Vol] 3.1 g/dL Normal 1.5-4.3 [facility] Comment on above: Performed By: #### 1 961439008, 3130290131, 8986259, 03159319, 3616870, 4956691410 #### [facility] (DEFAULT) [address] [place] [address] 27605 Glucose [Mass/Vol] 101.0 mg/dL Normal 74.0-118.0 [facility] Comment on above: Performed By: #### 1 306059630, 0911140390, 3448350, 84806038, 1910733, 3564863253 #### [facility] (DEFAULT) [address] [place] [address] 07002 Osmolality [Osmolality] 283 mOsm/L [facility] Comment on above: Performed By: #### 1 986454433, 7784565462, 7889943, 72253926, 0259702, 2946773070 #### [facility] (DEFAULT) [address] [place] [address] 83797 Potassium [Moles/Vol] 3.5 mmol/L Low 3.6-5.1 [facility] Comment on above: Performed By: #### 1 615729147, 8663547508, 8070081, 69503511, 5244364, 9243591372 #### [facility] (DEFAULT) [address] [place] [address] 39202 Protein [Mass/Vol] 7.5 g/dL Normal 6.5-8.1 [facility] Comment on above: Performed By: #### 1 356576037, 3188072873, 2141024, 42754331, 2222856, 7925618240 #### [facility] (DEFAULT) [address] [place] [address] 48696 Sodium [Moles/Vol] 142.0 mmol/L Normal 136.0-144.0 [facility] Comment on above: Performed By: #### 1 948433955, 6469262633, 4591088, 79056138, 3060420, 8261208222 #### [facility] (DEFAULT) [address] [place] [address] 60143 Urea nitrogen [Mass/Vol] 11 mg/dL Normal 07-23 [facility] Comment on above: Performed By: #### 1 670158007, 4766086418, 2588608, 61958130, 5316687, 3790615511 #### [facility] (DEFAULT) [address] [place] [address] 19239 Urea nitrogen/Creatinine [Mass ratio] 18.0 mg/mg High 4.6-16.2 [facility] Comment on above: Performed By: #### 1 630412091, 3773308120, 6235295, 34610027, 6303620, 0479537441 #### [facility] (DEFAULT) [address] [place] [address] Abdomen/Pelvis w/o Contra ston 10-23-2019 CT Abdomen/Pelvis w/o Contrast EXAMINATION: CT Abdomen/Pelvis w/o Contrast HISTORY: right flank pain since last evening. COMPARISON: None. TECHNIQUE: CT examination of the abdomen and pelvis without IV contrast. Coronal and sagittal reformations were performed. Dose reduction techniques were achieved by using automated exposure control and/or adjustment of mA and/or kV according to patient size and/or use of iterative reconstruction technique. FINDINGS: CT ABDOMEN: There are multiple tiny stones in the right renal collecting system. The largest is in the upper pole measuring about 4 mm in diameter. There is no hydronephrosis. The right ureter is normal in size and shape. It is obscured in the midpelvis due to adjacent nonopacified structures. A few tiny 2 mm calcified stones are seen in the left renal collecting system. There is no hydronephrosis. The normal sized left ureter can be seen down into the pelvis. It becomes obscured by adjacent nonopacified structures. The kidneys are normal in size and shape bilaterally. The adrenal glands appear normal. The aorta and inferior vena cava are normal in size and shape. There are left-sided retroperitoneal periaortic lymph nodes averaging about 10 mm in diameter. The liver, spleen and pancreas are normal in size and shape. The gallbladder is intact with no evidence of stone. The bowel appears normal. There is no ascites or abscess. A small umbilical hernia contains only fat. The lung bases are clear. The heart is normal in size. There is no pericardial effusion. The bones are intact. Scattered Schmorl's nodes are seen. Mild degenerative changes are seen in the spine. CT PELVIS: Several phleboliths are seen in the left side of the pelvis. The pelvic ureters are obscured by adjacent nonopacified structures. Uterus is retroflexed. There appear to be small bilateral ovarian cysts. No free fluid is seen. There are sigmoid diverticula. I see no evidence of diverticulitis. The normal appendix is seen on coronal slice 41. There is no ascites or abscess. The bowel appears otherwise normal. The urinary bladder is almost completely empty but appears normal. The bones are intact. IMPRESSION: No evidence of hydronephrosis, renal stone or mass. The pelvic ureters are obscured. Several phleboliths are seen on the left side of the pelvis. In the proper clinical setting, the possibility of a nonobstructing distal ureteral stone cannot be excluded with certainty. No bladder stone is seen. Sigmoid diverticula. There is no evidence of diverticulitis. Left-sided 10 mm retroperitoneal periaortic lymph nodes. The size suggests that they are probably reactive. Final Dictated by: Tristen Heard DO Dictated DT/TM: 10/23/19 7:26 Signed (Electronic Signature): Tristen Heard DO 10/23/19 8:20 pm Technologist: FABIENNE Normal [facility] ED Clinical Summaryon 2018 ED Clinical Summary [facility] - Emergency Department [address] [place] [address] ED Clinical Summary PERSON INFORMATION Name: LYNNE LAWS Age: 34 Years Sex: FEMALE : 1985 MRN: Acct#: Visit Reason: Nausea; Flank pain; VOMITING, RIGHT FLANK PAIN Arrival: 10/23/2019 17:36:59 Discharge: 10/23/2019 20:09:00 LOS: 000 02:33 Check In: 10/23/2019 17:36:59 Checkout:10/23/2019 20:09:00 Address: [address] [place], [place] [id number] PCP: Provider, None PROVIDER INFORMATION Provider Role Assigned Unassigned Breezy RN, Abby Rudd ED Nurse 10/23/2019 17:40:13 SERG LOCKE ED PA 10/23/2019 17:40:51 Jeevan LANDON, Caity Cheng ED Nurse 10/23/2019 19:14:31 VITALS INFORMATION Vital Sign Triage Latest Temperature Tympanic Temperature Temporal Artery Pulse Rate 88 bpm 72 bpm O2 Sat 98 % 98 % Respiratory Rate 16 br/min 16 br/min Blood Pressure /83 mmHg /83 mmHg MEDICAL INFORMATION Medications Given: Medication Dose Route Sodium Chloride 0.9% intravenous solution 500 mL Initial Volume 250 mL/hr IV Right Antecubital Fossa ketorolac 15 mg IV Push ondansetron 4 mg IV Push Allergy Information: shellfish PHYSICIAN DOCUMENTATION Patient: LYNNE LAWS Age: 34 years Sex: FEMALE : 1985 Associated Diagnoses: Right flank pain Author: SERG LOCKE Basic Information Time seen: Date & time 10/23/2019 17:41:00. History source: Patient. Arrival mode: Private vehicle, walking. History of Present Illness 34-year-old female presenting to the emergency department with complaint of right flank pain starting yesterday morning. Indicates that this has persisted as a dull ache that will intermittently get sharp. She states that the pain is approximately 7 out of 10. Patient also states that the pain is caused her to vomit 3 times yesterday, denies any vomiting today. She does admit to previous history of kidney stones but states this feels mildly different than her previous kidney stone. Denies any issues with bowels or bladder, chest pains, shortness of breath, fevers. States last menstrual cycle was 1 week ago was normal for her. Review of Systems Constitutional symptoms: No fever, Skin symptoms: No rash, Eye symptoms: Vision unchanged. ENMT symptoms: No sore throat, no nasal congestion. Respiratory symptoms: No shortness of breath, no cough. Cardiovascular symptoms: No chest pain, no tachycardia. Gastrointestinal symptoms: Abdominal pain, moderate, right flank, acute, sharp, dull, nausea, vomiting, no diarrhea, no constipation. Genitourinary symptoms: No dysuria, no hematuria. Musculoskeletal symptoms: Back pain. Neurologic symptoms: No headache, no dizziness. Health Status Allergies: Allergic Reactions (Selected) Severity Not Documented Shellfish- No reactions were documented.. Medications: (Selected) Prescriptions Prescribed Pepcid 20 mg oral tablet: 20 mg = 1 tab(s), PO, BID, for 14 day(s), 28 tab(s), 0 Refill(s) omeprazole 20 mg oral delayed release capsule: 20 mg = 1 cap(s), PO, Daily, for 14 day(s), 14 cap(s), 0 Refill(s). Past Medical/ Family/ Social History Family history: No family history items have been selected or recorded.. Social history: Social & Psychosocial Habits Tobacco 02/19/2018 Smoking tobacco use: Former smoker, quit more . Physical Examination CONST: -Well-developed well-nourished. -Acute distress: No -Vitals: reviewed. SKIN: -Gross abnormalities: No EYES: -EOM intact, FRANK: -Sclera conjunctiva: Unremarkable. ENT: -pharynx pink and moist. NECK: -Supple ([id number]): non-tender. CARD: -Rate and rhythm: Regular -Edema: No -Calf pain: No RESP: -Respiratory effort and chest excursion with respirations: Normal -Breath sounds equal bilaterally: Clear -Wheezes: No -Rales: No BACK: -Signs of pain with movement: No -Right CVA tenderness ABD: -Distended: No -Bruits: No -Bowel sounds: Normal. -Deep palpation: Non-tender, soft, no guarding or rebound tenderness EXT: Gross appearance and use of all four extremities: Unremarkable NEURO: -Patient: alert -Gross CN or Focal Neuro deficits: No -Oriented to: person, place and time. -Appearance and judgment: appropriate. Medical Decision Making 34-year-old female presenting to the emergency department complaint of right flank pain starting yesterday causing her to vomit 3 separate times. Denies any fevers, chest pains, shortness of breath issues with bowels or bladder. Previous history of kidney stones. Recommended CT scan of abdomen and pelvis along with blood work and urinalysis. Patient was in agreement. Patient CT scan of abdomen pelvis shows no evidence of hydronephrosis, renal stone or mass, the pelvic ureters are obscured, several phleboliths are seen in the left side of the pelvis, in the proper clinical setting the possibility of nonobstructing distal ureteral stone cannot be excluded with certainty, no bladder stone is seen; sigmoid diverticula without evidence of diverticulitis; left-sided 10 mm retroperitoneal periaortic lymph nodes, the size suggests that there probably reactive as interpreted by the radiologist. Patient's blood work shows potassium 3.5, normal creatinine, normal other electrolytes, normal lactic acid, normal white blood cell count, serum is negative. Urinalysis shows no acute infection, no blood, ketones or glucose. Discussed this with the patient indicated she should continue with Tylenol and ibuprofen and I would give her a prescription for Keflex and probiotics. Indicated that she could possibly have a small nonobstructing stone in the distal ureter she should continue with ibuprofen for that and I would give her Keflex to cover for any infection secondary to reactive lymph nodes. Recommended close follow-up with primary care provider and/or urologist and gave her name and number. This patient was discussed reviewed with supervising physician who was in agreement. Patient indicated she understood was in agreement. Patient is stable, afebrile, blood pressure 117/75 with a heart rate of 72, oxygen saturation 98% on room air, resting comfortably will be discharged Patient was discussed reviewed with supervising physician was and agree with plan of care and discharge of patient. Results review: Lab results : Lab Flowsheet 10/23/2019 18:19 EST UA Color Yellow UA Clarity CLEAR UA Glucose NEGATIVE UA Ketones NEGATIVE UA Spec Grav 1.020 UA Blood NEGATIVE UA pH 5.5 UA Protein NEGATIVE mg/dL UA Urobilinogen 0.2 mg/dL UA Nitrite NEGATIVE UA Leuk Est NEGATIVE UA Bilirubin NEGATIVE Urine Source Clean Catch Micro? Not Indicated Culture? No 10/23/2019 18:00 EST Sodium Level 142.0 mmol/L Potassium Level 3.5 mmol/L LOW Chloride Level 107 mmol/L CO2 23 mmol/L Anion Gap 16.0 mmol/L Glucose Level 101.0 mg/dL BUN 11 mg/dL Creatinine Level 0.62 mg/dL BUN/Creat Ratio 18.0 HI eGFR AA >60 mL/min/1.73m2 NA eGFR Non AA >60 mL/min/1.73m2 NA Calcium Level 9.3 mg/dL Bili Total 0.3 mg/dL Alk Phos 34 IU/L AST/SGOT 15 IU/L ALT/SGPT 12.0 IU/L LOW Protein Total 7.5 gm/dL Albumin Level 4.4 gm/dL Globulin 3.1 gm/dL A/G Ratio 1.4 Lipase Level 48.0 IU/L Osmolality 283 mOsm/L NA Lactic Acid 6.5 mg/dL Test Serum Qual Negative WBC 6.5 x103/mcL RBC 4.10 x106/mcL Hgb 12.7 gm/dL Hct 38.0 % MCV 93 fL MCH 31 pg MCHC 33 gm/dL RDW 12.6 % Platelet 231 x103/mcL MPV 10.2 fL Auto Neut % 62 % Auto Lymph % 30 % Auto Reynolds % 6 % Auto Eos % 1.8 % Auto Baso % 0.2 % Neut Abs# 4.0 x103/mcL Lymph Abs# 2.0 x103/mcL Reynolds Abs# 0.4 x103/mcL Eos Abs# 0.1 x103/mcL Baso Abs# 0.0 x103/mcL Tube Collected Yes . Impression and Plan Diagnosis Right flank pain ([id number] R10.9, Discharge, Medical) Plan Condition: Improved, Stable. Disposition: Discharged: Time 10/23/2019 19:52:00, to home. Prescriptions: Launch prescriptions Laboratory: Test Urine 1 (Order): Urine, Stat collect, 10/23/2019 17:43 EST, Nurse collect Urinalysis with Culture, if indicated Standard (Order): Urine, Stat collect, 10/23/2019 17:43 EST, Nurse collect, Launch prescriptions Laboratory: Lipase Level (Order): Blood, Stat collect, 10/23/2019 17:50 EST, Lab Collect Lactic Acid (Order): Blood, Stat collect, 10/23/2019 17:50 EST, Lab Collect CMP Standard (Order): Blood, Stat collect, 10/23/2019 17:50 EST, Lab Collect CBC w/ Auto Diff (Order): Blood, Stat collect, 10/23/2019 17:50 EST, Lab Collect Pharmacy: Sodium Chloride 0.9% intravenous solution 500 mL (Order): 250 mL/hr, IV Radiology: CT Abdomen/Pelvis w/o Contrast (Order): 10/23/2019 17:50 EST Stat, right flank pain, Allow Modification Per Radiologist, Transport Mode: Cart, No, Launch prescriptions Laboratory: Test Serum 1 (Order): Blood, Stat collect, 10/23/2019 17:52 EST, Lab Collect Test Urine 1 (Discontinue): 10/23/2019 17:52 EST, Other, Launch prescriptions Pharmacy: Zofran (Order): 4 mg, IV Push, Once Toradol (Order): 15 mg, IV Push, Once, Launch prescriptions Pharmacy: Zofran ODT 4 mg oral tablet, disintegrating (Prescribe): 4 mg = 1 tab(s), PO, BID, 4 tab(s), 0 Refill(s) work note (Prescribe): See Instructions, Please excuse from work 10/24/19, 1 EA, 0 Refill(s) cephalexin 500 mg oral tablet (Prescribe): 500 mg = 1 tab(s), PO, BID, for 5 day(s), 10 tab(s), 0 Refill(s) Acidophilus Extra Strength oral capsule (Prescribe): 1 cap(s), PO, Daily, 14 cap(s), 0 Refill(s). Patient was given the following educational materials: Abdominal Pain, Adult, Flank Pain, Adult, Renal Colic. Follow up with: Dion Sandoval Within 2 to 4 days Follow-up primary care provider for reevaluation. Continue Tylenol and ibuprofen for aches and pains. Continue antibiotics and probiotics as discussed. Plenty of rest and fluids. Return for any worsening issues such as fever increasing pains, fevers, intractable vomiting, or any other problems. You were seen in the emergency department for abdominal pain. Diagnostic workup in the ER did not reveal any specific explanation for your abdominal pain. No acute emergency identified. Contact your family doctor or PCP within the next one to 2 days for reevaluation. Return to ER for any concerns especially worsening pain, fever, vomiting or weakness.; Woody Diaz Within 3 to 5 days Urologist; Isidra Baig [phone] EXT: [phone] Call for family Physician Within 3 to 5 days Call to become established with primary care provider. Counseled: Patient, Regarding diagnosis, Regarding diagnostic results, Regarding treatment plan, Patient indicated understanding of instructions. DISCHARGE INFORMATION: Discharge Disposition: Home Discharge Location: Home PATIENT EDUCATION INFORMATION Instructions: Renal Colic; Flank Pain, Adult; Abdominal Pain, Adult Follow-Up: With: Address: When: Dion Rosenbaum [facility], [address] [facility] [place] [id number] Business (1) Within 2 to 4 days Comments: Follow-up primary care provider for reevaluation. Continue Tylenol and ibuprofen for aches and pains. Continue antibiotics and probiotics as discussed. Plenty of rest and fluids. Return for any worsening issues such as fever increasing pains, fevers, intractable vomiting, or any other problems. You were seen in the emergency department for abdominal pain. Diagnostic workup in the ER did not reveal any specific explanation for your abdominal pain. No acute emergency identified. Contact your family doctor or PCP within the next one to 2 days for reevaluation. Return to ER for any concerns especially worsening pain, fever, vomiting or weakness. With: Address: When: Woody Diaz [address] [place] [address], [address] [place] [address] Business (1) Within 3 to 5 days Comments: Urologist With: Address: When: Isidra Baig [phone] EXT: [phone] Call for family Physician Within 3 to 5 days Comments: Call to become established with primary care provider DIAGNOSIS: Right flank pain Patient Understands: Yes - Patient/family/caregiver verbalizes understanding of instructions given Comment: Normal [facility] ED Note - Physicianon 2018 ED Note - Physician Patient: LYNNE LAWS Age: 34 years Sex: FEMALE : 1985 Associated Diagnoses: Right flank pain Author: SERG LOCKE Basic Information Time seen: Date & time 10/23/2019 17:41:00. History source: Patient. Arrival mode: Private vehicle, walking. History of Present Illness 34-year-old female presenting to the emergency department with complaint of right flank pain starting yesterday morning. Indicates that this has persisted as a dull ache that will intermittently get sharp. She states that the pain is approximately 7 out of 10. Patient also states that the pain is caused her to vomit 3 times yesterday, denies any vomiting today. She does admit to previous history of kidney stones but states this feels mildly different than her previous kidney stone. Denies any issues with bowels or bladder, chest pains, shortness of breath, fevers. States last menstrual cycle was 1 week ago was normal for her. Review of Systems Constitutional symptoms: No fever, Skin symptoms: No rash, Eye symptoms: Vision unchanged. ENMT symptoms: No sore throat, no nasal congestion. Respiratory symptoms: No shortness of breath, no cough. Cardiovascular symptoms: No chest pain, no tachycardia. Gastrointestinal symptoms: Abdominal pain, moderate, right flank, acute, sharp, dull, nausea, vomiting, no diarrhea, no constipation. Genitourinary symptoms: No dysuria, no hematuria. Musculoskeletal symptoms: Back pain. Neurologic symptoms: No headache, no dizziness. Health Status Allergies: Allergic Reactions (Selected) Severity Not Documented Shellfish- No reactions were documented.. Medications: (Selected) Prescriptions Prescribed Pepcid 20 mg oral tablet: 20 mg = 1 tab(s), PO, BID, for 14 day(s), 28 tab(s), 0 Refill(s) omeprazole 20 mg oral delayed release capsule: 20 mg = 1 cap(s), PO, Daily, for 14 day(s), 14 cap(s), 0 Refill(s). Past Medical/ Family/ Social History Family history: No family history items have been selected or recorded.. Social history: Social & Psychosocial Habits Tobacco 02/19/2018 Smoking tobacco use: Former smoker, quit more . Physical Examination CONST: -Well-developed well-nourished. -Acute distress: No -Vitals: reviewed. SKIN: -Gross abnormalities: No EYES: -EOM intact, FRANK: -Sclera conjunctiva: Unremarkable. ENT: -pharynx pink and moist. NECK: -Supple ([id number]-[id number]): non-tender. CARD: -Rate and rhythm: Regular -Edema: No -Calf pain: No RESP: -Respiratory effort and chest excursion with respirations: Normal -Breath sounds equal bilaterally: Clear -Wheezes: No -Rales: No BACK: -Signs of pain with movement: No -Right CVA tenderness ABD: -Distended: No -Bruits: No -Bowel sounds: Normal. -Deep palpation: Non-tender, soft, no guarding or rebound tenderness EXT: Gross appearance and use of all four extremities: Unremarkable NEURO: -Patient: alert -Gross CN or Focal Neuro deficits: No -Oriented to: person, place and time. -Appearance and judgment: appropriate. Medical Decision Making 34-year-old female presenting to the emergency department complaint of right flank pain starting yesterday causing her to vomit 3 separate times. Denies any fevers, chest pains, shortness of breath issues with bowels or bladder. Previous history of kidney stones. Recommended CT scan of abdomen and pelvis along with blood work and urinalysis. Patient was in agreement. Patient CT scan of abdomen pelvis shows no evidence of hydronephrosis, renal stone or mass, the pelvic ureters are obscured, several phleboliths are seen in the left side of the pelvis, in the proper clinical setting the possibility of nonobstructing distal ureteral stone cannot be excluded with certainty, no bladder stone is seen; sigmoid diverticula without evidence of diverticulitis; left-sided 10 mm retroperitoneal periaortic lymph nodes, the size suggests that there probably reactive as interpreted by the radiologist. Patient's blood work shows potassium 3.5, normal creatinine, normal other electrolytes, normal lactic acid, normal white blood cell count, serum is negative. Urinalysis shows no acute infection, no blood, ketones or glucose. Discussed this with the patient indicated she should continue with Tylenol and ibuprofen and I would give her a prescription for Keflex and probiotics. Indicated that she could possibly have a small nonobstructing stone in the distal ureter she should continue with ibuprofen for that and I would give her Keflex to cover for any infection secondary to reactive lymph nodes. Recommended close follow-up with primary care provider and/or urologist and gave her name and number. This patient was discussed reviewed with supervising physician who was in agreement. Patient indicated she understood was in agreement. Patient is stable, afebrile, blood pressure 117/75 with a heart rate of 72, oxygen saturation 98% on room air, resting comfortably will be discharged Patient was discussed reviewed with supervising physician was and agree with plan of care and discharge of patient. Results review: Lab results : Lab Flowsheet 10/23/2019 18:19 EST UA Color Yellow UA Clarity CLEAR UA Glucose NEGATIVE UA Ketones NEGATIVE UA Spec Grav 1.020 UA Blood NEGATIVE UA pH 5.5 UA Protein NEGATIVE mg/dL UA Urobilinogen 0.2 mg/dL UA Nitrite NEGATIVE UA Leuk Est NEGATIVE UA Bilirubin NEGATIVE Urine Source Clean Catch Micro? Not Indicated Culture? No 10/23/2019 18:00 EST Sodium Level 142.0 mmol/L Potassium Level 3.5 mmol/L LOW Chloride Level 107 mmol/L CO2 23 mmol/L Anion Gap 16.0 mmol/L Glucose Level 101.0 mg/dL BUN 11 mg/dL Creatinine Level 0.62 mg/dL BUN/Creat Ratio 18.0 HI eGFR AA >60 mL/min/1.73m2 NA eGFR Non AA >60 mL/min/1.73m2 NA Calcium Level 9.3 mg/dL Bili Total 0.3 mg/dL Alk Phos 34 IU/L AST/SGOT 15 IU/L ALT/SGPT 12.0 IU/L LOW Protein Total 7.5 gm/dL Albumin Level 4.4 gm/dL Globulin 3.1 gm/dL A/G Ratio 1.4 Lipase Level 48.0 IU/L Osmolality 283 mOsm/L NA Lactic Acid 6.5 mg/dL Test Serum Qual Negative WBC 6.5 x103/mcL RBC 4.10 x106/mcL Hgb 12.7 gm/dL Hct 38.0 % MCV 93 fL MCH 31 pg MCHC 33 gm/dL RDW 12.6 % Platelet 231 x103/mcL MPV 10.2 fL Auto Neut % 62 % Auto Lymph % 30 % Auto Reynolds % 6 % Auto Eos % 1.8 % Auto Baso % 0.2 % Neut Abs# 4.0 x103/mcL Lymph Abs# 2.0 x103/mcL Reynolds Abs# 0.4 x103/mcL Eos Abs# 0.1 x103/mcL Baso Abs# 0.0 x103/mcL Tube Collected Yes . Impression and Plan Diagnosis Right flank pain ([id number] R10.9, Discharge, Medical) Plan Condition: Improved, Stable. Disposition: Discharged: Time 10/23/2019 19:52:00, to home. Prescriptions: Launch prescriptions Laboratory: Test Urine 1 (Order): Urine, Stat collect, 10/23/2019 17:43 EST, Nurse collect Urinalysis with Culture, if indicated Standard (Order): Urine, Stat collect, 10/23/2019 17:43 EST, Nurse collect, Launch prescriptions Laboratory: Lipase Level (Order): Blood, Stat collect, 10/23/2019 17:50 EST, Lab Collect Lactic Acid (Order): Blood, Stat collect, 10/23/2019 17:50 EST, Lab Collect CMP Standard (Order): Blood, Stat collect, 10/23/2019 17:50 EST, Lab Collect CBC w/ Auto Diff (Order): Blood, Stat collect, 10/23/2019 17:50 EST, Lab Collect Pharmacy: Sodium Chloride 0.9% intravenous solution 500 mL (Order): 250 mL/hr, IV Radiology: CT Abdomen/Pelvis w/o Contrast (Order): 10/23/2019 17:50 EST Stat, right flank pain, Allow Modification Per Radiologist, Transport Mode: Cart, No, Launch prescriptions Laboratory: Test Serum 1 (Order): Blood, Stat collect, 10/23/2019 17:52 EST, Lab Collect Test Urine 1 (Discontinue): 10/23/2019 17:52 EST, Other, Launch prescriptions Pharmacy: Zofran (Order): 4 mg, IV Push, Once Toradol (Order): 15 mg, IV Push, Once, Launch prescriptions Pharmacy: Zofran ODT 4 mg oral tablet, disintegrating (Prescribe): 4 mg = 1 tab(s), PO, BID, 4 tab(s), 0 Refill(s) work note (Prescribe): See Instructions, Please excuse from work 10/24/19, 1 EA, 0 Refill(s) cephalexin 500 mg oral tablet (Prescribe): 500 mg = 1 tab(s), PO, BID, for 5 day(s), 10 tab(s), 0 Refill(s) Acidophilus Extra Strength oral capsule (Prescribe): 1 cap(s), PO, Daily, 14 cap(s), 0 Refill(s). Patient was given the following educational materials: Abdominal Pain, Adult, Flank Pain, Adult, Renal Colic. Follow up with: Dion Sandoval Within 2 to 4 days Follow-up primary care provider for reevaluation. Continue Tylenol and ibuprofen for aches and pains. Continue antibiotics and probiotics as discussed. Plenty of rest and fluids. Return for any worsening issues such as fever increasing pains, fevers, intractable vomiting, or any other problems. You were seen in the emergency department for abdominal pain. Diagnostic workup in the ER did not reveal any specific explanation for your abdominal pain. No acute emergency identified. Contact your family doctor or PCP within the next one to 2 days for reevaluation. Return to ER for any concerns especially worsening pain, fever, vomiting or weakness.; Woody Diaz Within 3 to 5 days Urologist; Isidra Baig [phone] EXT: [phone] Call for family Physician Within 3 to 5 days Call to become established with primary care provider. Counseled: Patient, Regarding diagnosis, Regarding diagnostic results, Regarding treatment plan, Patient indicated understanding of instructions. [Electronically Signed on: 10/23/2019 19:52 EST] SERG LOCKE [Verified on: 10/23/2019 19:52 EST] SERG LOCKE [facility] ED Note-Nursingon 10-23-2019 ED Note-Nursing Pt presents to the E D with right sided flank pain described as dull but with movement often sharp. There is flank pain with palpation and some discomfort in the RUQ and RLQ of abdomen with palpation. Pt denies fevers or chest pain. Pt denies . Pt said she has not been able to get much sleep the last few weeks d/t her work schedule. Pt has taken Tylenol and ibuprofen for pain with no relief. Pt said she does have a hx of kidney stones but this does not feel the same. Pt denies urinary s/s. Pt walked to room 7 without assistance. [facility] ED Patient Education Noteon 10-23-2019 ED Patient Education Note Education Materials Gastroenterology Abdominal Pain, Adult Abdominal pain can be caused by many things. Often, abdominal pain is not serious and it gets better with no treatment or by being treated at home. However, sometimes abdominal pain is serious. Your health care provider will do a medical history and a physical exam to try to determine the cause of your abdominal pain. Follow these instructions at home: ? Take [id number] and prescription medicines only as told by your health care provider. Do not take a laxative unless told by your health care provider. ? Drink enough fluid to keep your urine clear or pale yellow. ? Watch your condition for any changes. ? Keep all follow-up visits as told by your health care provider. This is important. Contact a health care provider if: ? Your abdominal pain changes or gets worse. ? You are not hungry or you lose weight without trying. ? You are constipated or have diarrhea for more than 2?3 days. ? You have pain when you urinate or have a bowel movement. ? Your abdominal pain wakes you up at night. ? Your pain gets worse with meals, after eating, or with certain foods. ? You are throwing up and cannot keep anything down. ? You have a fever. Get help right away if: ? Your pain does not go away as soon as your health care provider told you to expect. ? You cannot stop throwing up. ? Your pain is only in areas of the abdomen, such as the right side or the left lower portion of the abdomen. ? You have bloody or black stools, or stools that look like tar. ? You have severe pain, cramping, or bloating in your abdomen. ? You have signs of dehydration, such as: ? Dark urine, very little urine, or no urine. ? Cracked lips. ? Dry mouth. ? Sunken eyes. ? Sleepiness. ? Weakness. This information is not intended to replace advice given to you by your health care provider. Make sure you discuss any questions you have with your health care provider. Document Released: 08/24/2006 Document Revised: 06/03/2017 Document Reviewed: 04/27/2017 [employer] Interactive Patient Education ? 2019 [employer]. Urology Renal Colic Renal colic is pain that is caused by passing a kidney stone. The pain can be sharp and severe. It may be felt in the back, abdomen, side (flank), or groin. It can cause nausea. Renal colic can come and go. Follow these instructions at home: Watch your condition for any changes. The following actions may help to lessen any discomfort that you are feeling: ? Take medicines only as directed by your health care provider. ? Ask your health care provider if it is okay to take [id number] pain medicine. ? Drink enough fluid to keep your urine clear or pale yellow. Drink 6?8 glasses of water each day. ? Limit the amount of salt that you eat to less than 2 grams per day. ? Reduce the amount of protein in your diet. Eat less meat, fish, nuts, and dairy. ? Avoid foods such as spinach, rhubarb, nuts, or bran. These may make kidney stones more likely to form. Contact a health care provider if: ? You have a fever or chills. ? Your urine smells bad or looks cloudy. ? You have pain or burning when you pass urine. Get help right away if: ? Your flank pain or groin pain suddenly worsens. ? You become confused or disoriented or you lose consciousness. This information is not intended to replace advice given to you by your health care provider. Make sure you discuss any questions you have with your health care provider. Document Released: 08/24/2006 Document Revised: 04/19/2017 Document Reviewed: 09/24/2015 [employer] Interactive Patient Education ? 2019 [employer]. Flank Pain, Adult Flank pain is pain that is located on the side of the body between the upper abdomen and the back. This area is called the flank. The pain may occur over a short period of time (acute), or it may be long-term or recurring (chronic). It may be mild or severe. Flank pain can be caused by many things, including: ? Muscle soreness or injury. ? Kidney stones or kidney disease. ? Stress. ? A disease of the spine (vertebral disk disease). ? A lung infection (pneumonia). ? Fluid around the lungs (pulmonary edema). ? A skin rash caused by the chickenpox virus (shingles). ? Tumors that affect the back of the abdomen. ? Gallbladder disease. Follow these instructions at home: ? Drink enough fluid to keep your urine clear or pale yellow. ? Rest as told by your health care provider. ? Take kizr-[id number] and prescription medicines only as told by your health care provider. ? Keep a journal to track what has caused your flank pain and what has made it feel better. ? Keep all follow-up visits as told by your health care provider. This is important. Contact a health care provider if: ? Your pain is not controlled with medicine. ? You have new symptoms. ? Your pain gets worse. ? You have a fever. ? Your symptoms last longer than 2?3 days. ? You have trouble urinating or you are urinating very frequently. Get help right away if: ? You have trouble breathing or you are short of breath. ? Your abdomen hurts or it is swollen or red. ? You have nausea or vomiting. ? You feel faint or you pass out. ? You have blood in your urine. Summary ? Flank pain is pain that is located on the side of the body between the upper abdomen and the back. ? The pain may occur over a short period of time (acute), or it may be long-term or recurring (chronic). It may be mild or severe. ? Flank pain can be caused by many things. ? Contact your health care provider if your symptoms get worse or they last longer than 2?3 days. This information is not intended to replace advice given to you by your health care provider. Make sure you discuss any questions you have with your health care provider. Document Released: 01/05/2007 Document Revised: 01/27/2018 Document Reviewed: 01/27/2018 [employer] Interactive Patient Education ? 2019 [employer]. Normal [facility] ED Patient Summaryon 019 ED Patient Summary [facility] - Emergency Department [address] [place], [place] [id number] PATIENT DISCHARGE INSTRUCTIONS Patient Information Name: LYNNE LAWS Age: 34 Years Date of : 1985 Reason For Visit: Nausea; Flank pain; VOMITING, RIGHT FLANK PAIN Arrival Time: 10/23/2019 17:36:59 Primary Care Physician: Provider, None Attending Physician: Boo Johnson MD Comment: Visit Diagnosis: Diagnoses This Visit Flank pain ([id number]) Nausea ([id number]) Right flank pain (R10.9) Prescription Information: If you have been given a prescription for narcotics, seek immediate medical attention if you have any difficulty breathing or any sudden status changes such as confusion and sleepiness. If you or anyone you know is experiencing suicidal thoughts, mental health, alcohol and/or drug addiction problems; contact the [facility] 20/06 Crisis Hotline -Text 4HPIL kd 743588. If you received any narcotics, sedation, or any other medication that causes drowsiness for the next 24 hours, unless otherwise directed: ? Do not drive a car. ? Do not operate machinery such as power tools, lawn mowers, drills, sewing machines, or stoves ? Avoid alcoholic beverages and drugs for allergies, nerves, or sleep ? Do not make important personal or business decisions or sign any legal documents With: Address: When: Dion Jaime Son [facility], [address] [place] [address] Business (1) Within 2 to 4 days Comments: Follow-up primary care provider for reevaluation. Continue Tylenol and ibuprofen for aches and pains. Continue antibiotics and probiotics as discussed. Plenty of rest and fluids. Return for any worsening issues such as fever increasing pains, fevers, intractable vomiting, or any other problems. You were seen in the emergency department for abdominal pain. Diagnostic workup in the ER did not reveal any specific explanation for your abdominal pain. No acute emergency identified. Contact your family doctor or PCP within the next one to 2 days for reevaluation. Return to ER for any concerns especially worsening pain, fever, vomiting or weakness. With: Address: When: Woody Diaz [address] [place] [address], [address] [place] [address] Business (1) Within 3 to 5 days Comments: Urologist With: Address: When: Isidra Baig [phone]: [phone] Call for family Physician Within 3 to 5 days Comments: Call to become established with primary care provider Medication Information: The exam and treatment you received today in the [facility] Emergency Department were for an urgent problem and are not intended as complete care. It is important for you to follow up with a doctor, nurse practitioner, or physician?s ex assistant/program director for ongoing care. If your symptoms become worse or you do not improve as expected and you are unable to reach your usual health care provider, you should return to the Emergency Department, we are available 24 hours a day. For those patients who have received Radiology results, the interpretation of your X-ray as given to you by our Emergency Department physician is only a preliminary report. The Radiologist will review your films and if there is a change in the diagnosis you will be notified by phone. Please make sure you have provided a working phone number so we can reach you if necessary. In the event that you had a lab culture while you were a patient in the Emergency Department, you will be notified by phone if there is a need to change your antibiotic. Please make sure you have provided a working phone number so we can reach you if necessary. [facility] Emergency Department has provided you with a complete list of medications post discharge. Please inform your auto mechanics teacher/provider of your visit and for further instruction on these medications. Any specific questions regarding your chronic medications and dosages should be discussed with your primary care physician(s) and/or pharmacist. New Medications Printed Prescriptions cephalexin (cephalexin 500 mg oral tablet) 1 tab(s) Oral 2 times a day for 5 Days. Refills: 0. lactobacillus acidophilus (Acidophilus Extra Strength oral capsule) 1 cap(s) Oral every day. Refills: 0. Misc Prescription (work note) Please excuse from work 10/24/19. Refills: 0. ondansetron (Zofran ODT 4 mg oral tablet, disintegrating) 1 tab(s) Oral 2 times a day. Refills: 0. Medications to Continue That Have Not Changed Other Medications famotidine (Pepcid 20 mg oral tablet) 1 tab(s) Oral 2 times a day for 14 Days. Refills: 0. omeprazole (omeprazole 20 mg oral delayed release capsule) 1 cap(s) Oral every day for 14 Days. Refills: 0. Visit Information Allergies: Substance Reaction Symptoms Type Comments shellfish Drug Vital Signs: Vitals and Measurements this Visit (last charted value for your 10/23/2019 visit) Vital Signs This Visit Temperature Oral: 36.5 DegC Peripheral Pulse Rate: 72 bpm Respiratory Rate: 16 br/min Systolic Blood Pressure: 117 mmHg Diastolic Blood Pressure: 75 mmHg SpO2: 98 % Oxygen Therapy: Room air Measurements This Visit Height/Length Dosin.000 cm Height/Length Estimated: 180.000 cm Weight Dosin.180 kg Weight Estimated: 86.180 kg Problems List: Problem Onset Comments GERD (gastroesophageal reflux disease) Migraine Patient Education Renal Colic Renal colic is pain that is caused by passing a kidney stone. The pain can be sharp and severe. It may be felt in the back, abdomen, side (flank), or groin. It can cause nausea. Renal colic can come and go. Follow these instructions at home: Watch your condition for any changes. The following actions may help to lessen any discomfort that you are feeling: ? Take medicines only as directed by your health care provider. ? Ask your health care provider if it is okay to take fyns-zac-elaqych pain medicine. ? Drink enough fluid to keep your urine clear or pale yellow. Drink 6?8 glasses of water each day. ? Limit the amount of salt that you eat to less than 2 grams per day. ? Reduce the amount of protein in your diet. Eat less meat, fish, nuts, and dairy. ? Avoid foods such as spinach, rhubarb, nuts, or bran. These may make kidney stones more likely to form. Contact a health care provider if: ? You have a fever or chills. ? Your urine smells bad or looks cloudy. ? You have pain or burning when you pass urine. Get help right away if: ? Your flank pain or groin pain suddenly worsens. ? You become confused or disoriented or you lose consciousness. This information is not intended to replace advice given to you by your health care provider. Make sure you discuss any questions you have with your health care provider. Document Released: 08/24/2006 Document Revised: 04/19/2017 Document Reviewed: 09/24/2015 [employer] Interactive Patient Education ? 2019 [employer]. Flank Pain, Adult Flank pain is pain that is located on the side of the body between the upper abdomen and the back. This area is called the flank. The pain may occur over a short period of time (acute), or it may be long-term or recurring (chronic). It may be mild or severe. Flank pain can be caused by many things, including: ? Muscle soreness or injury. ? Kidney stones or kidney disease. ? Stress. ? A disease of the spine (vertebral disk disease). ? A lung infection (pneumonia). ? Fluid around the lungs (pulmonary edema). ? A skin rash caused by the chickenpox virus (shingles). ? Tumors that affect the back of the abdomen. ? Gallbladder disease. Follow these instructions at home: ? Drink enough fluid to keep your urine clear or pale yellow. ? Rest as told by your health care provider. ? Take icuk-mpg-pcepwub and prescription medicines only as told by your health care provider. ? Keep a journal to track what has caused your flank pain and what has made it feel better. ? Keep all follow-up visits as told by your health care provider. This is important. Contact a health care provider if: ? Your pain is not controlled with medicine. ? You have new symptoms. ? Your pain gets worse. ? You have a fever. ? Your symptoms last longer than 2?3 days. ? You have trouble urinating or you are urinating very frequently. Get help right away if: ? You have trouble breathing or you are short of breath. ? Your abdomen hurts or it is swollen or red. ? You have nausea or vomiting. ? You feel faint or you pass out. ? You have blood in your urine. Summary ? Flank pain is pain that is located on the side of the body between the upper abdomen and the back. ? The pain may occur over a short period of time (acute), or it may be long-term or recurring (chronic). It may be mild or severe. ? Flank pain can be caused by many things. ? Contact your health care provider if your symptoms get worse or they last longer than 2?3 days. This information is not intended to replace advice given to you by your health care provider. Make sure you discuss any questions you have with your health care provider. Document Released: 01/05/2007 Document Revised: 01/27/2018 Document Reviewed: 01/27/2018 [employer] Interactive Patient Education ? 2019 [employer] Abdominal Pain, Adult Abdominal pain can be caused by many things. Often, abdominal pain is not serious and it gets better with no treatment or by being treated at home. However, sometimes abdominal pain is serious. Your health care provider will do a medical history and a physical exam to try to determine the cause of your abdominal pain. Follow these instructions at home: ? Take rqos-hnh-njnzdur and prescription medicines only as told by your health care provider. Do not take a laxative unless told by your health care provider. ? Drink enough fluid to keep your urine clear or pale yellow. ? Watch your condition for any changes. ? Keep all follow-up visits as told by your health care provider. This is important. Contact a health care provider if: ? Your abdominal pain changes or gets worse. ? You are not hungry or you lose weight without trying. ? You are constipated or have diarrhea for more than 2?3 days. ? You have pain when you urinate or have a bowel movement. ? Your abdominal pain wakes you up at night. ? Your pain gets worse with meals, after eating, or with certain foods. ? You are throwing up and cannot keep anything down. ? You have a fever. Get help right away if: ? Your pain does not go away as soon as your health care provider told you to expect. ? You cannot stop throwing up. ? Your pain is only in areas of the abdomen, such as the right side or the left lower portion of the abdomen. ? You have bloody or black stools, or stools that look like tar. ? You have severe pain, cramping, or bloating in your abdomen. ? You have signs of dehydration, such as: ? Dark urine, very little urine, or no urine. ? Cracked lips. ? Dry mouth. ? Sunken eyes. ? Sleepiness. ? Weakness. This information is not intended to replace advice given to you by your health care provider. Make sure you discuss any questions you have with your health care provider. Document Released: 08/24/2006 Document Revised: 06/03/2017 Document Reviewed: 04/27/2017 [employer] Interactive Patient Education ? 2019 [employer]. Viruses or Bacteria What?s got you sick? Antibiotics only treat bacterial infections. Viral illnesses cannot be treated with antibiotics. When an antibiotic is not prescribed, ask your healthcare professional for tips on how to relieve symptoms and feel better. Usual Cause Illness Viruses Bacteria Antibiotic Needed Cold/Runny Nose NO Bronchitis/Chest Cold (in otherwise healthy children and adults) NO Whooping Cough Yes Flu NO Strep Throat Yes Sore Throat (except strep) NO Fluid in the middle ear (otitis media with effusion) NO Urinary Tract Infection Yes Antibiotics Aren?t Always the Answer www.cdc.gov/getsmart GET SMART Know When Antibiotics Work U.S. Department of Health and Human Services Centers for Disease Control and Prevention July 2014 Normal [facility] Extra Blueon 10-23-2019 Tube Collected Yes [facility] Comment on above: Performed By: #### 1 [id number], [id number], [id number], 5613807, [id number] ####[facility] (DEFAULT)[address] [place] [address] Lactic Acidon 10-23-2019 Lactate [Moles/Vol] 6.5 mg/dL Normal 4.5-19.8 [facility] Comment on above: Performed By: #### 1 [id number], [id number], 3980568, 03030037, 3004943, [id number] #### [facility] (DEFAULT) [address] [place], [place] [address] Lipaseon 10-23-2019 Lipase Level 48.0 IU/L Normal 22.0-51.0 [facility] Comment on above: Performed By: #### 1 [id number], [id number], 7825305, 20179654, 0144563, [id number] #### [facility] (DEFAULT) [address] [place] [address] Test Serum 1on Preg Serum Internal Control OK [facility] Comment on above: Performed By: #### 1 [id number], [id number], 1497088, 79202119, 9504838, [id number] #### [facility] (DEFAULT) [address] [place] [address] Test Serum Qual Negative [facility] Comment on above: Performed By: #### 1 [id number], [id number], 5631734, 27254970, 6462211, [id number] #### [facility] (DEFAULT) [address] [place] [address] UA w Culture if Ind Standard on 10-23-2019 Breakpoint UA [facility] Comment on above: Performed By: #### 1 [id number], [id number], 5001685, 47600482, 1828465, [id number] #### [facility] (DEFAULT) [address] [place] [address]261 Color (U) Yellow [facility] Comment on above: Performed By: #### 1 [id number], [id number], 8182021, 98539583, 5890595, 3797093887 #### [facility] (DEFAULT) [address] [place] [address] 77205 Culture? No [facility] Comment on above: Performed By: #### 1 [id number], [id number], 2937231, 35220123, 2453548, [id number] #### [facility] (DEFAULT) [address] [place] [address]9066 Glucose (U) [Mass/Vol] Negative Normal [facility] Comment on above: Performed By: #### 1 [id number], 8841578477, 3040203, 64757190, 5559766, [id number] #### [facility] (DEFAULT) [address] [place] [address] Ketones Ql (U) Negative [facility] Comment on above: Performed By: #### 1 [id number], [id number], 9894173, 67028908, 0439591, [id number] #### [facility] (DEFAULT) [address] [place] [address] Micro? Not Indicated Normal [facility] Comment on above: Performed By: #### 1 [id number], 1323618575, 9213341, 43795254, 7570717, [id number] #### [facility] (DEFAULT) [address] [place] [address]31 UA Bilirubin Negative Normal [facility] Comment on above: Performed By: #### 1 [id number], [id number], 0996996, 23994811, 4257638, [id number] #### [facility] (DEFAULT) [address] [place] [address]3473 UA Blood Negative Normal NEGATIVE [facility] Comment on above: Performed By: #### 1 [id number], [id number], 1002484, 70357065, 6093825, [id number] #### [facility] (DEFAULT) [address] [place] [address]8414 UA Clarity CLEAR Normal CLEAR [facility] Comment on above: Performed By: #### 1 [id number], 8570065506, 5367344, 61509061, 5046438, [id number] #### [facility] (DEFAULT) [address] [place] [address]857 UA Leuk Est Negative Normal NEGATIVE [facility] Comment on above: Performed By: #### 1 [id number], 4327234009, 5620246, 17795339, 1664708, 2747844722 #### [facility] (DEFAULT) [address] [place] [address] UA Nitrite Negative Normal NEGATIVE [facility] Comment on above: Performed By: #### 1 [id number], 3942729830, 9087861, 87089992, 9000812, [id number] #### [facility] (DEFAULT) [address] [place] [address] UA pH 5.5 Normal 5-8 [facility] Comment on above: Performed By: #### 1 [id number], 3063610115, 7030942, 62516615, 5808677, 1738628938 #### [facility] (DEFAULT) [address] [place] [address] UA Protein Negative Normal NEGATIVE [facility] Comment on above: Performed By: #### 1 [id number], 6158770005, 9781360, 80436602, 9381855, 7100416818 #### [facility] (DEFAULT) [address] [place] [address] UA Spec Grav 1.020 Normal 1.001-1.035 [facility] Comment on above: Performed By: #### 1 [id number], 0313654771, 0868470, 32347271, 7309526, 4404760760 #### [facility] (DEFAULT) [address] [place] [address] UA Urobilinogen 0.2 mg/dL Normal 0.2-1.0 [facility] Comment on above: Performed By: #### 1 [id number], 0345255846, 2264498, 71908356, 4162217, 0149505484 #### [facility] (DEFAULT) [address] [place] [address] Urine Source Clean Catch Normal [facility] Comment on above: Performed By: #### 1 [id number], 2620715182, 1183138, 91859155, 0985859, 6599901855 #### [facility] (DEFAULT) [address] [place] [address] Coding Summaryon 12-13-2018 Coding Summary CODING DATE: [facility] STATUS: Home PAYOR: Self Pay ADMIT DX: REASON FOR VISIT DX: R10.13 Epigastric pain FINAL DX: PRINCIPAL: K21.9 Gastro-esophageal reflux disease without esophagitis SECONDARY: Z87.11 Personal history of peptic ulcer disease PROCEDURES DOCTOR NAME DATE NOTE: The code number assigned matches the documented diagnosis and / or procedure in the patient's chart. However, the narrative phrase printed from the coding software may appear abbreviated, or result in slightly different terminology. Coded By: Ankita Roy Date Saved: 12/13/2018 01:35 pm [facility] Coding Summary CODING DATE: [facility] STATUS: Home PAYOR: Self Pay ADMIT DX: REASON FOR VISIT DX: R10.13 Epigastric pain FINAL DX: PRINCIPAL: K21.9 Gastro-esophageal reflux disease without esophagitis SECONDARY: Z87.11 Personal history of peptic ulcer disease PROCEDURES DOCTOR NAME DATE NOTE: The code number assigned matches the documented diagnosis and / or procedure in the patient's chart. However, the narrative phrase printed from the coding software may appear abbreviated, or result in slightly different terminology. Coded By: Ankita Roy Date Saved: 12/13/2018 01:33 pm [facility] .Auto Diff 1on 12-11-2018 Auto Reynolds % 7 % Normal 1-12 [facility] Comment on above: Performed By: #### 1 [id number], 1291985812, 7429389, 46959594, 5365233, 0659108117 #### [facility] (DEFAULT) [address] [place] [address] 97903 Baso Abs# 0.0 x10 Normal 0.0-0.2 [facility] Comment on above: Performed By: #### 1 [id number], 8062424362, 7868323, 62060416, 7506503, 3002269237 #### [facility] (DEFAULT) [address] [place] [address] 97359 Basophils/100 WBC (Bld) 0.3 % Normal 0.2-2.0 [facility] Comment on above: Performed By: #### 1 [id number], 9023088038, 2418441, 45479622, 4518547, 0172155153 #### [facility] (DEFAULT) [address] [place] [address] 60010 Eos Abs# 0.1 x10 Normal 0.0-0.4 [facility] Comment on above: Performed By: #### 1 [id number], 3128640566, 3657969, 50462237, 8067174, 5163258226 #### [facility] (DEFAULT) [address] [place] [address] 17164 Eosinophils/100 WBC (Bld) 1.5 % Normal 0.9-4.0 [facility] Comment on above: Performed By: #### 1 [id number], 0727439282, 1906292, 36270053, 4303716, 1157190895 #### [facility] (DEFAULT) [address] [place] [address] 14824 Lymphocytes (Bld) [#/Vol] 2.1 x10 Normal 1.3-2.9 [facility] Comment on above: Performed By: #### 1 [id number], 9994019788, 3723130, 11413749, 6321480, 6960788445 #### [facility] (DEFAULT) [address] [place] [address] 11532 Lymphocytes/100 WBC (Bld) 29 % Normal 14-48 [facility] Comment on above: Performed By: #### 1 [id number], 6789258465, 2132942, 12936726, 9464908, 7755291577 #### [facility] (DEFAULT) [address] [place] [address] 35743 Reynolds Abs# 0.5 x10 Normal 0.0-0.8 [facility] Comment on above: Performed By: #### 1 [id number], 8082007837, 0975464, 86788810, 1231203, 8469493643 #### [facility] (DEFAULT) [address] [place] [address] 90773 Neut Abs# 4.6 x10 Normal 1.5-9.2 [facility] Comment on above: Performed By: #### 1 [id number], 2887123403, 6105753, 06543436, 0749779, 6373387798 #### [facility] (DEFAULT) [address] [place] [address] Neutrophils/100 WBC (Bld) 63 % Normal 44-88 [facility] Comment on above: Performed By: #### 1 [id number], 4367271538, 6650234, 69760130, 6354732, 5242448853 #### [facility] (DEFAULT) [address] [place] [address] CBC w/ Auto Diffon 9 Erythrocyte distribution width (RBC) [Ratio] 13.1 % Normal 11.5-15.0 [facility] Comment on above: Performed By: #### 1 [id number], 1098457474, 0877796, 00357574, 3788401, 8466709582 #### [facility] (DEFAULT) [address] [place] [address] Hematocrit (Bld) [Volume fraction] 37.8 % Normal 33.7-40.4 [facility] Comment on above: Performed By: #### 1 [id number], 5217803137, 2446688, 54733685, 0104095, 8516632067 #### [facility] (DEFAULT) [address] [place] [address] Hemoglobin (Bld) [Mass/Vol] 12.6 g/dL Normal 11.3-15.9 [facility] Comment on above: Performed By: #### 1 [id number], 0847422819, 0167015, 48086628, 2609054, [id number] #### [facility] (DEFAULT) [address] [place] [address] Man Diff? Auto Normal [facility] Comment on above: Performed By: #### 1 [id number], 7765116502, 7521997, 25351810, 6001885, 4095584783 #### [facility] (DEFAULT) [address] [place] [address] MCH (RBC) [Entitic mass] 30 pg Normal 24-34 [facility] Comment on above: Performed By: #### 1 [id number], [id number], [id number], 90194351, 2990238, [id number] #### [facility] (DEFAULT) [address] [place] [address] MCHC (RBC) [Mass/Vol] 33 g/dL Normal 26-37 [facility] Comment on above: Performed By: #### 1 [id number], [id number], 2956432, 83229639, 1775473, [id number] #### [facility] (DEFAULT) [address] [place] [address] MCV (RBC) [Entitic vol] 90 fL Normal 81-100 [facility] Comment on above: Performed By: #### 1 [id number], [id number], 3616245, 41083992, 2688143, [id number] #### [facility] (DEFAULT) [address] [place] [address] Platelet mean volume (Bld) [Entitic vol] 11.6 fL High 6.3-10.2 [facility] Comment on above: Performed By: #### 1 [id number], [id number], 4461190, 02909700, 6710285, [id number] #### [facility] (DEFAULT) [address] [place] [address] Platelets (Bld) [#/Vol] 117 x10 Low 138-427 [facility] Comment on above: Performed By: #### 1 [id number], [id number], 5210667, 81039445, 1615927, [id number] #### [facility] (DEFAULT) [address] [place] [address] RBC (Bld) [#/Vol] 4.21 x10 Normal 3.70-5.30 [facility] Comment on above: Performed By: #### 1 [id number], [id number], 9134629, 49735057, 4822556, [id number] #### [facility] (DEFAULT) [address] [place] [address] 70351 WBC (Bld) [#/Vol] 7.3 x10 [facility] Comment on above: Performed By: #### 1 [id number], [id number], 0606281, 96748564, 4560705, [id number] #### [facility] (DEFAULT) [address] [place] [address] CMP Standardon 12-11-2018 eGFR Non AA >60 [facility] Comment on above: Performed By: #### 1 [id number], [id number], 8957572, 58206842, 2851590, [id number] #### [facility] (DEFAULT) [address] [place] [address] eGFR AA >60 [facility] Comment on above: Result Comment: Neonatal Intensive Care Nurse elizabeth Kidney disease could be indicated at eGFRs of less than 60 ml/min/1.73m2. Kidney Failure is indicated at less than 15 ml/min/1.73m2 Performed By: #### 1 [id number], [id number], 1178094, 19476524, 0414200, [id number] #### [facility] (DEFAULT) [address] [place] [address] 53322 Albumin [Mass/Vol] 4.1 g/dL Normal 3.5-5.0 [facility] Comment on above: Performed By: #### 1 [id number], [id number], 4164250, 22689194, 3770259, [id number] #### [facility] (DEFAULT) [address] [place] [address] 88724 Albumin/Globulin [Mass ratio] 1.3 {ratio} Low 1.4-2.6 [facility] Comment on above: Performed By: #### 1 [id number], [id number], 9071000, 89050191, 9767964, [id number] #### [facility] (DEFAULT) [address] [place] [address] 34492 Alk Phos 35 IU/L Normal 32-91 [facility] Comment on above: Performed By: #### 1 [id number], [id number], 2130504, 19665981, 3069932, 1074089131 #### [facility] (DEFAULT) [address] [place] [address] 08190 ALT/SGPT 11.0 IU/L Low 14.0-54.0 [facility] Comment on above: Performed By: #### 1 [id number], [id number], 8941995, 00572881, 8015372, [id number] #### [facility] (DEFAULT) [address] [place] [address] 92315 Anion gap [Moles/Vol] 14.0 mmol/L Normal 5.0-19.0 [facility] Comment on above: Performed By: #### 1 [id number], [id number], 0305363, 20621593, 5767423, [id number] #### [facility] (DEFAULT) [address] [place] [address] 44871 AST/SGOT 18 IU/L Normal 15-41 [facility] Comment on above: Performed By: #### 1 [id number], [id number], 5104237, 99818295, 0535531, [id number] #### [facility] (DEFAULT) [address] [place] [address] 02365 Bili Total 0.3 mg/dL Normal 0.3-1.2 [facility] Comment on above: Performed By: #### 1 [id number], [id number], 2642454, 64086732, 5127813, 3703132523 #### [facility] (DEFAULT) [address] [place] [address] 43357 Calcium [Mass/Vol] 9.6 mg/dL Normal 8.9-10.3 [facility] Comment on above: Performed By: #### 1 [id number], 6307298702, 5594906, 56986214, 8833532, [id number] #### [facility] (DEFAULT) [address] [place] [address] 81073 Chloride [Moles/Vol] 106 mmol/L Normal 101-111 [facility] Comment on above: Performed By: #### 1 [id number], [id number], 4549761, 85741063, 0277903, [id number] #### [facility] (DEFAULT) [address] [place] [address] 74500 CO2 [Moles/Vol] 21 mmol/L Normal 21-32 [facility] Comment on above: Performed By: #### 1 [id number], [id number], 5561479, 25780163, 1092557, [id number] #### [facility] (DEFAULT) [address] [place] [address] 34924 Creatinine [Mass/Vol] 0.68 mg/dL Normal 0.60-1.30 [facility] Comment on above: Performed By: #### 1 [id number], [id number], 7981106, 65366327, 5409082, [id number] #### [facility] (DEFAULT) [address] [place] [address] 73891 Globulin (S) [Mass/Vol] 3.1 g/dL Normal 1.5-4.3 [facility] Comment on above: Performed By: #### 1 [id number], 8944309127, 9017421, 75472573, 9788349, 8604479316 #### [facility] (DEFAULT) [address] [place] [address] 11977 Glucose [Mass/Vol] 88.0 mg/dL Normal 74.0-118.0 [facility] Comment on above: Performed By: #### 1 [id number], 8850599476, 9413669, 76066901, 1444891, 9153877879 #### [facility] (DEFAULT) [address] [place] [address] 51153 Osmolality [Osmolality] 272 mOsm/L [facility] Comment on above: Performed By: #### 1 [id number], [id number], 2821794, 61220001, 3293343, [id number] #### [facility] (DEFAULT) [address] [place] [address] 79465 Potassium [Moles/Vol] 3.5 mmol/L Low 3.6-5.1 [facility] Comment on above: Performed By: #### 1 [id number], 5537301291, 8722888, 43648354, 2407121, [id number] #### [facility] (DEFAULT) [address] [place] [address] 95698 Protein [Mass/Vol] 7.2 g/dL Normal 6.5-8.1 [facility] Comment on above: Performed By: #### 1 [id number], 9162096566, 6412032, 32570675, 3411914, [id number] #### [facility] (DEFAULT) [address] [place] [address] 79486 Sodium [Moles/Vol] 137.0 mmol/L Normal 136.0-144.0 [facility] Comment on above: Performed By: #### 1 [id number], 5813736218, 1015347, 67130053, 9550480, [id number] #### [facility] (DEFAULT) [address] [place] [address] 03132 Urea nitrogen [Mass/Vol] 10 mg/dL Normal 8-26 [facility] Comment on above: Performed By: #### 1 [id number], 0947840172, 4414910, 22178920, 2150805, [id number] #### [facility] (DEFAULT) [address] [place] [address] 51737 Urea nitrogen/Creatinine [Mass ratio] 15.0 mg/mg Normal 4.6-16.2 [facility] Comment on above: Performed By: #### 1 [id number], [id number], 2512457, 14321900, 8031677, [id number] #### [facility] (DEFAULT) [address] [place] [address] 78272 ED Clinical Summaryon 2018 ED Clinical Summary [facility] - Emergency Department [address] [place] [address] ED Clinical Summary PERSON INFORMATION Name: LYNNE LAWS Age: 33 Years Sex: FEMALE : 89 MRN: Acct#: Visit Reason: Abdominal pain; ABD PAIN Arrival: 12/11/18 16:56:00 Discharge: 12/11/18 19:08:00 LOS: 000 02:12 Check In: 12/11/18 16:56:00 Checkout:12/11/18 19:08:00 Address: [place] [address] PCP: Provider, None PROVIDER INFORMATION Provider Role Assigned Unassigned Jerrell Centeno PA-C ED PA 12/11/18 17:04:12 Dariel RN, [place] ED Nurse 12/11/18 17:08:36 VITALS INFORMATION Vital Sign Triage Latest Temperature Tympanic Temperature Temporal Artery Pulse Rate 87 bpm 87 bpm O2 Sat 98 % 98 % Respiratory Rate 18 br/min 18 br/min Blood Pressure 113 mmHg/83 mmHg 113 mmHg/83 mmHg MEDICAL INFORMATION Medications Given: Medication Dose Route GI Cocktail 1 EA PO famotidine 20 mg PO ketorolac 15 mg IM Allergy Information: shellfish PHYSICIAN DOCUMENTATION Patient: LYNNE LAWS Age: 33 years Sex: FEMALE : 87 Associated Diagnoses: Epigastric abdominal pain; GERD (gastroesophageal reflux disease) Author: Jerrell Centeno PA-C Basic Information Time seen: Date & time 12/11/18 17:04:00. History source: Patient. Arrival mode: Private vehicle. History limitation: None. History of Present Illness 33-year-old female presents here to the emergency department this afternoon with chief complaint of epigastric abdominal pain. Patient does state a history of GERD which she used to take Zantac. States she is no longer taking Zantac. Patient states she takes [id number] Tums as needed. Patient denies any fever, chills. She denies any nausea vomiting diarrhea black or tarry stools or blood in the stool. 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 Patient states that this abdominal discomfort wraps around both sides of the upper abdomen. She denies any chest pain or shortness of breath. She denies any history of gallstones pancreatitis or appendicitis. She denies any abdominal surgeries. States last menstrual cycle was approximately 3 weeks ago. She denies using any form of control at this time. She denies any rashes or lesions. Denies any recent cold or cough type symptoms. She has not had any modifying factors for her discomfort. She rates her pain as an 8 out of 10 sharp aching in nature. She does state allergies which includes shellfish. She denies any other current medications. She does state history of asthma. She states that this time she does not currently have a primary care provider. Patient states she is a former smoker however quit many years ago. Patient does state she has a history of gastric ulcer when she was a teenager. She states that with some time ago and she is not sure who she saw for those. Review of Systems Constitutional symptoms: No fever, no chills, no sweats, no weakness, no fatigue. Skin symptoms: No rash, Eye symptoms: Vision unchanged. ENMT symptoms: No ear pain, no sore throat, no nasal congestion, no sinus pain. Respiratory symptoms: No shortness of breath, no cough. Cardiovascular symptoms: No chest pain, no palpitations, no tachycardia, no syncope, no diaphoresis, no peripheral edema. Gastrointestinal symptoms: Abdominal pain, moderate, epigastric, sharp, achy, no nausea, no vomiting, no diarrhea, no constipation, no rectal bleeding, no rectal pain. Genitourinary symptoms: No dysuria, no hematuria. Musculoskeletal symptoms: No back pain, no Muscle pain, no Joint pain. Neurologic symptoms: No headache, no dizziness, no altered level of consciousness, no numbness, no tingling, no weakness. Additional review of systems information: All other systems reviewed and otherwise negative. Health Status Allergies: Allergic Reactions (Selected) Severity Not Documented Shellfish- No reactions were documented.. Medications: (Selected) Inpatient Medications Ordered GI Cocktail: 1 EA, PO, Once Completed DuoNeb 0.5 mg-2.5 mg/3 mL inhalation solution: 3 mL, NEB, Once [place] 5 mg-325 mg oral tablet: 1 tab(s), PO, Once SOLU-Medrol: 125 mg, 2 mL, IM, Once Toradol: 30 mg, 1 mL, IM, Once predniSONE: 50 mg, 1 tab(s), PO, Once Prescriptions Completed [place] 5 mg-325 mg oral tablet: 1 tab(s), PO, TID, for 5 day(s), 15 tab(s), 0 Refill(s) predniSONE 20 mg oral tablet: 40 mg, 2 tab(s), PO, Daily, for 4 day(s), 8 tab(s), 0 Refill(s). Menstrual history: Last menstrual period: 3 week(s) ago. Past Medical/ Family/ Social History Medical history: GERD. Surgical history: Negative. Social history: Social & Psychosocial Habits Tobacco 02/19/2018 Smoking tobacco use: Former smoker, quit more . Physical Examination General: Alert, no acute distress. Skin: Warm, dry, intact, no pallor, no rash. Head: Normocephalic, atraumatic. Neck: Supple. Eye: Pupils are equal, round and reactive to light, extraocular movements are intact, normal conjunctiva. Ears, nose, mouth and throat: Oral mucosa moist. Cardiovascular: Regular rate and rhythm, No murmur, Normal peripheral perfusion, No edema, S1, S2, regular rhythm. Respiratory: Lungs are clear to auscultation, respirations are non-labored, breath sounds are equal, Symmetrical chest wall expansion, Lungs sounds are clear bilaterally. No wheezing, rhonchi, crackles on exam.. Chest wall: No tenderness, No deformity. Back: Nontender, Normal range of motion, Normal alignment, no step-offs, No localized spinal or paraspinal tenderness. No focal deficits. No CVA tenderness.. Musculoskeletal: Normal ROM, normal strength, no tenderness, no swelling, no deformity. Gastrointestinal: Soft, Non distended, Normal bowel sounds, No organomegaly, Patient has bowel sounds present ?4 quadrants. Abdomen is soft, nondistended. Patient has some tenderness at epigastric region however no guarding rigidity or rebound is noted. No Archer sign. No McBurney's point tenderness or localized right lower quadrant tenderness. No acute findings.. Neurological: Alert and oriented to person, place, time, and situation, No focal neurological deficit observed, normal sensory observed, normal motor observed, normal speech observed, normal coordination observed, Normal sensory, motor, speech, coordination is observed on exam.. Lymphatics: No lymphadenopathy. Psychiatric: Cooperative, appropriate mood & affect, normal judgment. Medical Decision Making Orders Launch Orders Pharmacy: Toradol (Order): 15 mg, IM, Once Pepcid (Order): 20 mg, PO, Once. Results review: Lab results : Lab Flowsheet 12/11/18 17:35 EST U Preg Negative UA Color YELLOW UA Clarity CLEAR UA Glucose NEGATIVE UA Ketones NEGATIVE UA Spec Grav >=1.030 UA Blood NEGATIVE UA pH 6.0 UA Protein NEGATIVE mg/dL UA Urobilinogen 0.2 mg/dL UA Nitrite NEGATIVE UA Leuk Est NEGATIVE UA Bilirubin NEGATIVE Urine Source Clean Catch Micro? Not Indicated Culture? Not Indicated 12/11/18 17:30 EST Sodium Level 137.0 mmol/L Potassium Level 3.5 mmol/L LOW Chloride Level 106 mmol/L CO2 21 mmol/L Anion Gap 14.0 mmol/L Glucose Level 88.0 mg/dL BUN 10 mg/dL Creatinine Level 0.68 mg/dL BUN/Creat Ratio 15.0 eGFR AA >60 mL/min/1.73m2 NA eGFR Non AA >60 mL/min/1.73m2 NA Calcium Level 9.6 mg/dL Bili Total 0.3 mg/dL Alk Phos 35 IU/L AST/SGOT 18 IU/L ALT/SGPT 11.0 IU/L LOW Protein Total 7.2 gm/dL Albumin Level 4.1 gm/dL Globulin 3.1 gm/dL A/G Ratio 1.3 LOW Lipase Level 38.0 IU/L Osmolality 272 mOsm/L NA Lactic Acid 7.7 mg/dL WBC 7.3 x103/mcL RBC 4.21 x106/mcL Hgb 12.6 gm/dL Hct 37.8 % MCV 90 fL MCH 30 pg MCHC 33 gm/dL RDW 13.1 % Platelet 117 x103/mcL LOW MPV 11.6 fL HI Auto Neut % 63 % Auto Lymph % 29 % Auto Reynolds % 7 % Auto Eos % 1.5 % Auto Baso % 0.3 % Neut Abs# 4.6 x103/mcL Lymph Abs# 2.1 x103/mcL Reynolds Abs# 0.5 x103/mcL Eos Abs# 0.1 x103/mcL Baso Abs# 0.0 x103/mcL Tube Collected Yes Tube Collected Yes . Reexamination/ Reevaluation 17:55 Urinalysis and CBC wnl. 18:02 Pts CMP, lactate, and lipase all appear wnl. Will recheck pt following GI cocktail. 18:15 Pt continues to have epigastric abdominal discomfort, states pain is down to a 6/10, aching in nature. I spoke with her in regards to labs, we will try pepcid, and toradol for pain, I spoke with pt in regards ot folllowing up with PCP as well as general surgeon for possible EGD. Pt agrees and understands plan of care. I stated there was not an indication for CT scan at this time, and discussed risks and benefits with patient. Patient agrees and understands plan of care to try Pepcid and Toradol this time. 18: 45 Pt is feeling somewhat better. Abdominal pain down to a 4/10 vs. 8/10. I spoke with her in regards to Pepcid and omeprazole daily. Stated that she needs to follow-up with primary care physician and establish primary care provider which I gave her information [facility]. She should call tomorrow morning to schedule follow-up appointment. From there they may be able to refer her to GI specialist or general surgeon which may follow up with the patient in regards to possible endoscopy. Patient does have history of gastric ulcer as a teenager she states. I stated to her to refrain from using any NSAIDs that includes Advil ibuprofen and Aleve this may increase discomfort. She would like to take something for pain Tylenol is the safest. She may continue Pepcid and omeprazole as needed for discomfort and acid reflux. Patient understands to return here to the emergency department for any worsening or concerning symptoms. Impression and Plan Diagnosis Epigastric abdominal pain (ATW36-AR R10.13, Discharge, Medical) GERD (gastroesophageal reflux disease) ([id number]-JB K21.9, Discharge, Medical) Plan Condition: Stable. Disposition: Discharged: Time 12/11/18 18:49:00, to home. Prescriptions: Launch prescriptions Pharmacy: Pepcid 20 mg oral tablet (Prescribe): 20 mg = 1 tab(s), PO, BID, for 14 day(s), 28 tab(s), 0 Refill(s) omeprazole 20 mg oral delayed release capsule (Prescribe): 20 mg = 1 cap(s), PO, Daily, for 14 day(s), 14 cap(s), 0 Refill(s). Patient was given the following educational materials: Abdominal Pain, Adult, Gastroesophageal Reflux Disease, Adult, Gastroesophageal Reflux Disease, Adult, Abdominal Pain, Adult. Follow up with: ; Follow up with primary care provider Within 3 to 5 days You are provided with information for primary care physician: [facility], , Address: [address] [place] [address]. Please call to schedule a follow up appointment and to establish care within 3-5 days. You were seen here in the emergency department for epigastric or upper abdominal pain. You had labs completed that were all wnl. You were treated with GI cocktail, as well as toradol, and pepcid. You are given 2 prescriptions. One prescription for Pepcid twice daily ?14 days the second is for omeprazole once daily ?14 days. These will both help with acid reflux type symptoms in which you may have developed stomach ulcer. You are given follow-up information as well in regards to following up with general surgeon or GI specialist in regards to possibly having an upper endoscopy. You may continue bland foods. Refrain from spicy, greasy, fatty foods. Refrain from alcohol and caffeine. Continue plenty of clear liquids like water. Continue Tylenol as needed for pain. Discontinue all NSAIDs which include ibuprofen, Advil, Aleve as this may irritate stomach. You may return here to the emergency department he felt any worsening pain, fever, black or tarry stools or blood in the stool or any other worsening or concerning symptoms.; ISABELL YORK Within 3 to 5 days; ; Remy Jeffery Within 3 to 5 days; ; Johnny Sarmiento Within 3 to 5 days. Counseled: Patient, Family, Regarding diagnosis, Regarding diagnostic results, Regarding treatment plan, Regarding prescription, Patient indicated understanding of instructions. Notes: 33-year-old female presented here to the emergency department with her significant other with chief complaint of epigastric abdominal discomfort. 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 Patient states she has history of GERD or acid reflux when she will ease of taking Zantac however does not currently have primary care provider. She denies any recent fatty or greasy foods denies any recent space seafood. She did stay allergy to shellfish. She denied any diarrhea black or tarry stools or blood in the stool. Denied any nausea or vomiting. Stated epigastric abdominal pain was an 8 out of 10 on the pain scale sharp and aching in nature. Patient's last menstrual cycle was approximately 3 weeks ago. Urine was negative urinalysis was negative. Patient had abdominal pain workup completed with lactate lipase BMP and CBC were all within normal limits. I felt the patient reports normal labs. Patient stated some relief following GI cocktail which she rated her pain as a 6 out of 10. Patient then received 15 mg IM injection of Toradol as well as 20 mg Pepcid orally. Patient stated her pain was down to about a 4 out of 10 the pain scale. Patient stated she was feeling better. She did state history of gastric ulcer, she was teenager. I felt the patient in regards to following up with primary care physician establishing care she was given information for [facility] in [place] in which she will follow up with them by calling their office tomorrow morning to schedule an appointment. Patient denied any chest pain or shortness of breath. Following medications patient had improved patient given prescription for omeprazole once daily and Pepcid twice daily for her history of gastric ulcer. Also given information to follow Dr. York in [place] patient states she is from [facility] as well as Dr. Jeffery, or Dr. Sarmiento, as I stated if she continues to have upper epigastric pain a March 28 to complete an EGD with history of GERD and acid reflex and which is currently not treated. Patient and significant other both agree and understand plan of care. He understands to refrain from alcohol, caffeine, spicy, greasy, fatty foods. She understands the follow bland diet and can't continue with clear liquids such as water until able to tolerate normal diet. She understands that she may return here to the emergency department showed any fever, worsening abdominal pain, black or tarry stools or blood in the stool, vomiting or any other worsening or concerning symptoms.. DISCHARGE INFORMATION: Discharge Disposition: Home Discharge Location: Home PATIENT EDUCATION INFORMATION Instructions: Gastroesophageal Reflux Disease, Adult; Abdominal Pain, Adult Follow-Up: With: Address: When: Johnny Sarmiento [address] [place] [address] Business (1) Within 3 to 5 days With: Address: When: Remy Jeffery [address] [facility], [facility] [address] [place] [address] Business (1) Within 3 to 5 days With: Address: When: ISABELL YORK [address] [place] [address] Business (1) Within 3 to 5 days With: Address: When: Follow up with primary care provider Within 3 to 5 days Comments: You are provided with information for primary care physician: [facility], , Address: [address] [place] [address]. Please call to schedule a follow up appointment and to establish care within 3-5 days. You were seen here in the emergency department for epigastric or upper abdominal pain. You had labs completed that were all wnl. You were treated with GI cocktail, as well as toradol, and pepcid. You are given 2 prescriptions. One prescription for Pepcid twice daily ?14 days the second is for omeprazole once daily ?14 days. These will both help with acid reflux type symptoms in which you may have developed stomach ulcer. You are given follow-up information as well in regards to following up with general surgeon or GI specialist in regards to possibly having an upper endoscopy. You may continue bland foods. Refrain from spicy, greasy, fatty foods. Refrain from alcohol and caffeine. Continue plenty of clear liquids like water. Continue Tylenol as needed for pain. Discontinue all NSAIDs which include ibuprofen, Advil, Aleve as this may irritate stomach. You may return here to the emergency department he felt any worsening pain, fever, black or tarry stools or blood in the stool or any other worsening or concerning symptoms. DIAGNOSIS: Epigastric abdominal pain; GERD (gastroesophageal reflux disease) Patient Understands: Yes - Patient/family/caregiver verbalizes understanding of instructions given Comment: [facility] ED Note - Physicianon 2018 ED Note - Physician Patient: LYNNE LAWS Age: 33 years Sex: FEMALE : 89 Associated Diagnoses: Epigastric abdominal pain; GERD (gastroesophageal reflux disease) Author: Jerrell Centeno PA-C Basic Information Time seen: Date & time 12/11/18 17:04:00. History source: Patient. Arrival mode: Private vehicle. History limitation: None. History of Present Illness 33-year-old female presents here to the emergency department this afternoon with chief complaint of epigastric abdominal pain. Patient does state a history of GERD which she used to take Zantac. States she is no longer taking Zantac. Patient states she takes [id number] Tums as needed. Patient denies any fever, chills. She denies any nausea vomiting diarrhea black or tarry stools or blood in the stool. 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 Patient states that this abdominal discomfort wraps around both sides of the upper abdomen. She denies any chest pain or shortness of breath. She denies any history of gallstones pancreatitis or appendicitis. She denies any abdominal surgeries. States last menstrual cycle was approximately 3 weeks ago. She denies using any form of control at this time. She denies any rashes or lesions. Denies any recent cold or cough type symptoms. She has not had any modifying factors for her discomfort. She rates her pain as an 8 out of 10 sharp aching in nature. She does state allergies which includes shellfish. She denies any other current medications. She does state history of asthma. She states that this time she does not currently have a primary care provider. Patient states she is a former smoker however quit many years ago. Patient does state she has a history of gastric ulcer when she was a teenager. She states that with some time ago and she is not sure who she saw for those. Review of Systems Constitutional symptoms: No fever, no chills, no sweats, no weakness, no fatigue. Skin symptoms: No rash, Eye symptoms: Vision unchanged. ENMT symptoms: No ear pain, no sore throat, no nasal congestion, no sinus pain. Respiratory symptoms: No shortness of breath, no cough. Cardiovascular symptoms: No chest pain, no palpitations, no tachycardia, no syncope, no diaphoresis, no peripheral edema. Gastrointestinal symptoms: Abdominal pain, moderate, epigastric, sharp, achy, no nausea, no vomiting, no diarrhea, no constipation, no rectal bleeding, no rectal pain. Genitourinary symptoms: No dysuria, no hematuria. Musculoskeletal symptoms: No back pain, no Muscle pain, no Joint pain. Neurologic symptoms: No headache, no dizziness, no altered level of consciousness, no numbness, no tingling, no weakness. Additional review of systems information: All other systems reviewed and otherwise negative. Health Status Allergies: Allergic Reactions (Selected) Severity Not Documented Shellfish- No reactions were documented.. Medications: (Selected) Inpatient Medications Ordered GI Cocktail: 1 EA, PO, Once Completed DuoNeb 0.5 mg-2.5 mg/3 mL inhalation solution: 3 mL, NEB, Once Mill[place] 5 mg-325 mg oral tablet: 1 tab(s), PO, Once SOLU-Medrol: 125 mg, 2 mL, IM, Once Toradol: 30 mg, 1 mL, IM, Once predniSONE: 50 mg, 1 tab(s), PO, Once Prescriptions Completed Mill[place] 5 mg-325 mg oral tablet: 1 tab(s), PO, TID, for 5 day(s), 15 tab(s), 0 Refill(s) predniSONE 20 mg oral tablet: 40 mg, 2 tab(s), PO, Daily, for 4 day(s), 8 tab(s), 0 Refill(s). Menstrual history: Last menstrual period: 3 week(s) ago. Past Medical/ Family/ Social History Medical history: GERD. Surgical history: Negative. Social history: Social & Psychosocial Habits Tobacco 02/19/2018 Smoking tobacco use: Former smoker, quit more . Physical Examination General: Alert, no acute distress. Skin: Warm, dry, intact, no pallor, no rash. Head: Normocephalic, atraumatic. Neck: Supple. Eye: Pupils are equal, round and reactive to light, extraocular movements are intact, normal conjunctiva. Ears, nose, mouth and throat: Oral mucosa moist. Cardiovascular: Regular rate and rhythm, No murmur, Normal peripheral perfusion, No edema, S1, S2, regular rhythm. Respiratory: Lungs are clear to auscultation, respirations are non-labored, breath sounds are equal, Symmetrical chest wall expansion, Lungs sounds are clear bilaterally. No wheezing, rhonchi, crackles on exam.. Chest wall: No tenderness, No deformity. Back: Nontender, Normal range of motion, Normal alignment, no step-offs, No localized spinal or paraspinal tenderness. No focal deficits. No CVA tenderness.. Musculoskeletal: Normal ROM, normal strength, no tenderness, no swelling, no deformity. Gastrointestinal: Soft, Non distended, Normal bowel sounds, No organomegaly, Patient has bowel sounds present ?4 quadrants. Abdomen is soft, nondistended. Patient has some tenderness at epigastric region however no guarding rigidity or rebound is noted. No Archer sign. No McBurney's point tenderness or localized right lower quadrant tenderness. No acute findings.. Neurological: Alert and oriented to person, place, time, and situation, No focal neurological deficit observed, normal sensory observed, normal motor observed, normal speech observed, normal coordination observed, Normal sensory, motor, speech, coordination is observed on exam.. Lymphatics: No lymphadenopathy. Psychiatric: Cooperative, appropriate mood & affect, normal judgment. Medical Decision Making Orders Launch Orders Pharmacy: Toradol (Order): 15 mg, IM, Once Pepcid (Order): 20 mg, PO, Once. Results review: Lab results : Lab Flowsheet 12/11/18 17:35 EST U Preg Negative UA Color YELLOW UA Clarity CLEAR UA Glucose NEGATIVE UA Ketones NEGATIVE UA Spec Grav >=1.030 UA Blood NEGATIVE UA pH 6.0 UA Protein NEGATIVE mg/dL UA Urobilinogen 0.2 mg/dL UA Nitrite NEGATIVE UA Leuk Est NEGATIVE UA Bilirubin NEGATIVE Urine Source Clean Catch Micro? Not Indicated Culture? Not Indicated 12/11/18 17:30 EST Sodium Level 137.0 mmol/L Potassium Level 3.5 mmol/L LOW Chloride Level 106 mmol/L CO2 21 mmol/L Anion Gap 14.0 mmol/L Glucose Level 88.0 mg/dL BUN 10 mg/dL Creatinine Level 0.68 mg/dL BUN/Creat Ratio 15.0 eGFR AA >60 mL/min/1.73m2 NA eGFR Non AA >60 mL/min/1.73m2 NA Calcium Level 9.6 mg/dL Bili Total 0.3 mg/dL Alk Phos 35 IU/L AST/SGOT 18 IU/L ALT/SGPT 11.0 IU/L LOW Protein Total 7.2 gm/dL Albumin Level 4.1 gm/dL Globulin 3.1 gm/dL A/G Ratio 1.3 LOW Lipase Level 38.0 IU/L Osmolality 272 mOsm/L NA Lactic Acid 7.7 mg/dL WBC 7.3 x103/mcL RBC 4.21 x106/mcL Hgb 12.6 gm/dL Hct 37.8 % MCV 90 fL MCH 30 pg MCHC 33 gm/dL RDW 13.1 % Platelet 117 x103/mcL LOW MPV 11.6 fL HI Auto Neut % 63 % Auto Lymph % 29 % Auto Reynolds % 7 % Auto Eos % 1.5 % Auto Baso % 0.3 % Neut Abs# 4.6 x103/mcL Lymph Abs# 2.1 x103/mcL Reynolds Abs# 0.5 x103/mcL Eos Abs# 0.1 x103/mcL Baso Abs# 0.0 x103/mcL Tube Collected Yes Tube Collected Yes . Reexamination/ Reevaluation 17:55 Urinalysis and CBC wnl. 18:02 Pts CMP, lactate, and lipase all appear wnl. Will recheck pt following GI cocktail. 18:15 Pt continues to have epigastric abdominal discomfort, states pain is down to a 6/10, aching in nature. I spoke with her in regards to labs, we will try pepcid, and toradol for pain, I spoke with pt in regards ot folllowing up with PCP as well as general surgeon for possible EGD. Pt agrees and understands plan of care. I stated there was not an indication for CT scan at this time, and discussed risks and benefits with patient. Patient agrees and understands plan of care to try Pepcid and Toradol this time. 18: 45 Pt is feeling somewhat better. Abdominal pain down to a 4/10 vs. 8/10. I spoke with her in regards to Pepcid and omeprazole daily. Stated that she needs to follow-up with primary care physician and establish primary care provider which I gave her information for [facility] services in 3 months. She should call tomorrow morning to schedule follow-up appointment. From there they may be able to refer her to GI specialist or general surgeon which may follow up with the patient in regards to possible endoscopy. Patient does have history of gastric ulcer as a teenager she states. I stated to her to refrain from using any NSAIDs that includes Advil ibuprofen and Aleve this may increase discomfort. She would like to take something for pain Tylenol is the safest. She may continue Pepcid and omeprazole as needed for discomfort and acid reflux. Patient understands to return here to the emergency department for any worsening or concerning symptoms. Impression and Plan Diagnosis Epigastric abdominal pain ([id number] R10.13, Discharge, Medical) GERD (gastroesophageal reflux disease) ([id number] K21.9, Discharge, Medical) Plan Condition: Stable. Disposition: Discharged: Time 12/11/18 18:49:00, to home. Prescriptions: Launch prescriptions Pharmacy: Pepcid 20 mg oral tablet (Prescribe): 20 mg = 1 tab(s), PO, BID, for 14 day(s), 28 tab(s), 0 Refill(s) omeprazole 20 mg oral delayed release capsule (Prescribe): 20 mg = 1 cap(s), PO, Daily, for 14 day(s), 14 cap(s), 0 Refill(s). Patient was given the following educational materials: Abdominal Pain, Adult, Gastroesophageal Reflux Disease, Adult, Gastroesophageal Reflux Disease, Adult, Abdominal Pain, Adult. Follow up with: ; Follow up with primary care provider Within 3 to 5 days You are provided with information for primary care physician: [facility], , Address: [address] [place] [address]. Please call to schedule a follow up appointment and to establish care within 3-5 days. You were seen here in the emergency department for epigastric or upper abdominal pain. You had labs completed that were all wnl. You were treated with GI cocktail, as well as toradol, and pepcid. You are given 2 prescriptions. One prescription for Pepcid twice daily ?14 days the second is for omeprazole once daily ?14 days. These will both help with acid reflux type symptoms in which you may have developed stomach ulcer. You are given follow-up information as well in regards to following up with general surgeon or GI specialist in regards to possibly having an upper endoscopy. You may continue bland foods. Refrain from spicy, greasy, fatty foods. Refrain from alcohol and caffeine. Continue plenty of clear liquids like water. Continue Tylenol as needed for pain. Discontinue all NSAIDs which include ibuprofen, Advil, Aleve as this may irritate stomach. You may return here to the emergency department he felt any worsening pain, fever, black or tarry stools or blood in the stool or any other worsening or concerning symptoms.; ISABELL YORK Within 3 to 5 days; ; Remy Jeffery Within 3 to 5 days; ; Johnny Sarmiento Within 3 to 5 days. Counseled: Patient, Family, Regarding diagnosis, Regarding diagnostic results, Regarding treatment plan, Regarding prescription, Patient indicated understanding of instructions. Notes: 33-year-old female presented here to the emergency department with her significant other with chief complaint of epigastric abdominal discomfort. 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 Patient states she has history of GERD or acid reflux when she will ease of taking Zantac however does not currently have primary care provider. She denies any recent fatty or greasy foods denies any recent space seafood. She did stay allergy to shellfish. She denied any diarrhea black or tarry stools or blood in the stool. Denied any nausea or vomiting. Stated epigastric abdominal pain was an 8 out of 10 on the pain scale sharp and aching in nature. Patient's last menstrual cycle was approximately 3 weeks ago. Urine was negative urinalysis was negative. Patient had abdominal pain workup completed with lactate lipase BMP and CBC were all within normal limits. I felt the patient reports normal labs. Patient stated some relief following GI cocktail which she rated her pain as a 6 out of 10. Patient then received 15 mg IM injection of Toradol as well as 20 mg Pepcid orally. Patient stated her pain was down to about a 4 out of 10 the pain scale. Patient stated she was feeling better. She did state history of gastric ulcer, she was teenager. I felt the patient in regards to following up with primary care physician establishing care she was given information for community health services in [place] in which she will follow up with them by calling their office tomorrow morning to schedule an appointment. Patient denied any chest pain or shortness of breath. Following medications patient had improved patient given prescription for omeprazole once daily and Pepcid twice daily for her history of gastric ulcer. Also given information to follow Dr. York in [place] patient states she is from [facility] as well as Dr. Jeffery, or Dr. Sarmiento, as I stated if she continues to have upper epigastric pain a March 28 to complete an EGD with history of GERD and acid reflex and which is currently not treated. Patient and significant other both agree and understand plan of care. He understands to refrain from alcohol, caffeine, spicy, greasy, fatty foods. She understands the follow bland diet and can't continue with clear liquids such as water until able to tolerate normal diet. She understands that she may return here to the emergency department showed any fever, worsening abdominal pain, black or tarry stools or blood in the stool, vomiting or any other worsening or concerning symptoms.. [Electronically Signed on: 12/11/2018 19:06 EST] JacoboJerrell cameron PA-C [Verified on: 12/11/2018 19:06 EST] Jerrell Centeno PA-C 12:18 12/12/2018 Pt was seen yesterday. 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 This was corrected, and pt picked it up. [Electronically Signed on: 12/12/2018 12:19 EST] Jerrell Centeno PA-C [facility] ED Note-Nursingon 12-11-2018 ED Note-Nursing Patient arrives with c/o epigastric pain/burning that goes to her back. Patient rates pain a 6/10 prior to medication. Hisotry of GERD No nausea/vomiting/diarrhea and no pain with urination. [facility] ED Patient Education Noteon 12-11-2018 ED Patient Education Note Education Materials Gastroenterology Gastroesophageal Reflux Disease, Adult Normally, food travels down the esophagus and stays in the stomach to be digested. However, when a person has gastroesophageal reflux disease (GERD), food and stomach acid move back up into the esophagus. When this happens, the esophagus becomes sore and inflamed. Over time, GERD can create small holes (ulcers) in the lining of the esophagus. What are the causes? This condition is caused by a problem with the muscle between the esophagus and the stomach (lower esophageal sphincter, or LES). Normally, the LES muscle closes after food passes through the esophagus to the stomach. When the LES is weakened or abnormal, it does not close properly, and that allows food and stomach acid to go back up into the esophagus. The LES can be weakened by certain dietary substances, medicines, and medical conditions, including: ? Tobacco use. ? . ? Having a hiatal hernia. ? Heavy alcohol use. ? Certain foods and beverages, such as coffee, chocolate, onions, and peppermint. What increases the risk? This condition is more likely to develop in: ? People who have an increased body weight. ? People who have connective tissue disorders. ? People who use NSAID medicines. What are the signs or symptoms? Symptoms of this condition include: ? Heartburn. ? Difficult or painful swallowing. ? The feeling of having a lump in the throat. ? A?bitter taste in the mouth. ? Bad breath. ? Having a large amount of saliva. ? Having an upset or bloated stomach. ? Belching. ? Chest pain. ? Shortness of breath or wheezing. ? Ongoing (chronic) cough or a night-time cough. ? Wearing away of tooth enamel. ? Weight loss. Different conditions can cause chest pain. Make sure to see your health care provider if you experience chest pain. How is this diagnosed? Your health care provider will take a medical history and perform a physical exam. To determine if you have mild or severe GERD, your health care provider may also monitor how you respond to treatment. You may also have other tests, including: ? An endoscopy to?examine your stomach and esophagus with a small camera. ? A test that?measures the acidity level in your esophagus. ? A test that?measures how much pressure is on your esophagus. ? A barium swallow or modified barium swallow to show the shape, size, and functioning of your esophagus. How is this treated? The goal of treatment is to help relieve your symptoms and to prevent complications. Treatment for this condition may vary depending on how severe your symptoms are. Your health care provider may recommend: ? Changes to your diet. ? Medicine. ? Surgery. Follow these instructions at home: Diet ? Follow a diet as recommended by your health care provider. This may involve avoiding foods and drinks such as: ? Coffee and tea (with or without caffeine). ? Drinks that contain?alcohol. ? Energy drinks and sports drinks. ? Carbonated drinks or sodas. ? Chocolate and cocoa. ? Peppermint and mint flavorings. ? Garlic and onions. ? Horseradish. ? Spicy and acidic foods, including peppers, chili powder, radford powder, vinegar, hot sauces, and barbecue sauce. ? Sweetwater fruit juices and citrus fruits, such as oranges, jose guadalupe, and limes. ? Tomato-based foods, such as red sauce, chili, salsa, and pizza with red sauce. ? Fried and fatty foods, such as donuts, georgian fries, potato chips, and high-fat dressings. ? High-fat meats, such as hot dogs and fatty cuts of red and white meats, such as rib eye steak, sausage, ham, and centeno. ? High-fat dairy items, such as whole milk, butter, and cream cheese. ? Eat small, frequent meals instead of large meals. ? Avoid drinking large amounts of liquid with your meals. ? Avoid eating meals during the 2?3 hours before bedtime. ? Avoid lying down right after you eat. ? Do not exercise right after you eat. General instructions ? Pay attention to any changes in your symptoms. ? Take [id number] and prescription medicines only as told by your health care provider. Do not take aspirin, ibuprofen, or other NSAIDs unless your health care provider told you to do so. ? Do not use any tobacco products, including cigarettes, chewing tobacco, and e-cigarettes. If you need help quitting, ask your health care provider. ? Wear loose-fitting clothing. Do not wear anything tight around your waist that causes pressure on your abdomen. ? Raise (elevate) the head of your bed 6 inches (15cm). ? Try to reduce your stress, such as with yoga or meditation. If you need help reducing stress, ask your health care provider. ? If you are overweight, reduce your weight to an amount that is healthy for you. Ask your health care provider for guidance about a safe weight loss goal. ? Keep all follow-up visits as told by your health care provider. This is important. Contact a health care provider if: ? You have new symptoms. ? You have unexplained weight loss. ? You have difficulty swallowing, or it hurts to swallow. ? You have wheezing or a persistent cough. ? Your symptoms do not improve with treatment. ? You have a hoarse voice. Get help right away if: ? You have pain in your arms, neck, jaw, teeth, or back. ? You feel sweaty, dizzy, or light-headed. ? You have chest pain or shortness of breath. ? You vomit and your vomit looks like blood or coffee grounds. ? You faint. ? Your stool is bloody or black. ? You cannot swallow, drink, or eat. This information is not intended to replace advice given to you by your health care provider. Make sure you discuss any questions you have with your health care provider. Document Released: 08/24/2006 Document Revised: 04/13/2017 Document Reviewed: 03/10/2016 [employer] Interactive Patient Education ? 2017 [employer]. Abdominal Pain, Adult Abdominal pain can be caused by many things. Often, abdominal pain is not serious and it gets better with no treatment or by being treated at home. However, sometimes abdominal pain is serious. Your health care provider will do a medical history and a physical exam to try to determine the cause of your abdominal pain. Follow these instructions at home: ? Take axhz-hle-sxtmiuh and prescription medicines only as told by your health care provider. Do not take a laxative unless told by your health care provider. ? Drink enough fluid to keep your urine clear or pale yellow. ? Watch your condition for any changes. ? Keep all follow-up visits as told by your health care provider. This is important. Contact a health care provider if: ? Your abdominal pain changes or gets worse. ? You are not hungry or you lose weight without trying. ? You are constipated or have diarrhea for more than 2?3 days. ? You have pain when you urinate or have a bowel movement. ? Your abdominal pain wakes you up at night. ? Your pain gets worse with meals, after eating, or with certain foods. ? You are throwing up and cannot keep anything down. ? You have a fever. Get help right away if: ? Your pain does not go away as soon as your health care provider told you to expect. ? You cannot stop throwing up. ? Your pain is only in areas of the abdomen, such as the right side or the left lower portion of the abdomen. ? You have bloody or black stools, or stools that look like tar. ? You have severe pain, cramping, or bloating in your abdomen. ? You have signs of dehydration, such as: ? Dark urine, very little urine, or no urine. ? Cracked lips. ? Dry mouth. ? Sunken eyes. ? Sleepiness. ? Weakness. This information is not intended to replace advice given to you by your health care provider. Make sure you discuss any questions you have with your health care provider. Document Released: 08/24/2006 Document Revised: 06/03/2017 Document Reviewed: 04/27/2017 [employer] Interactive Patient Education ? 2017 [employer]. [facility] ED Patient Summaryon 019 ED Patient Summary [facility] - Emergency Department [address] [place] [id number] PATIENT DISCHARGE INSTRUCTIONS Patient Information Name: LYNNE LAWS Age: 33 Years Date of : [birth year] Reason For Visit: Abdominal pain; ABD PAIN Arrival Time: 12/11/18 16:56:00 Primary Care Physician: Provider, None Attending Physician: Herman Adam MD Comment: Visit Diagnosis: Diagnoses This Visit Abdominal pain ([id number]) Epigastric abdominal pain (R10.13) GERD (gastroesophageal reflux disease) (K21.9) If you received any narcotics, sedation, or any other medication that causes drowsiness for the next 24 hours, unless otherwise directed: ? Do not drive a car. ? Do not operate machinery such as power tools, lawn mowers, drills, sewing machines, or stoves ? Avoid alcoholic beverages and drugs for allergies, nerves, or sleep ? Do not make important personal or business decisions or sign any legal documents With: Address: When: Johnny Sarmiento [address] [place] [address] Business (1) Within 3 to 5 days With: Address: When: Remy Jeffery [address] [place] [address], [address] [place] [address] Business (1) Within 3 to 5 days With: Address: When: ISABELL YORK [address] [place] [phone] Business (1) Within 3 to 5 days With: Address: When: Follow up with primary care provider Within 3 to 5 days Comments: You are provided with information for primary care physician: [facility], , Address: [address] [place] [address]. Please call to schedule a follow up appointment and to establish care within 3-5 days. You were seen here in the emergency department for epigastric or upper abdominal pain. You had labs completed that were all wnl. You were treated with GI cocktail, as well as toradol, and pepcid. You are given 2 prescriptions. One prescription for Pepcid twice daily ?14 days the second is for omeprazole once daily ?14 days. These will both help with acid reflux type symptoms in which you may have developed stomach ulcer. You are given follow-up information as well in regards to following up with general surgeon or GI specialist in regards to possibly having an upper endoscopy. You may continue bland foods. Refrain from spicy, greasy, fatty foods. Refrain from alcohol and caffeine. Continue plenty of clear liquids like water. Continue Tylenol as needed for pain. Discontinue all NSAIDs which include ibuprofen, Advil, Aleve as this may irritate stomach. You may return here to the emergency department he felt any worsening pain, fever, black or tarry stools or blood in the stool or any other worsening or concerning symptoms. Medication Information: The exam and treatment you received today in the [facility] Emergency Department were for an urgent problem and are not intended as complete care. It is important for you to follow up with a doctor, nurse practitioner, or physician?s ex assistant/program director for ongoing care. If your symptoms become worse or you do not improve as expected and you are unable to reach your usual health care provider, you should return to the Emergency Department, we are available 24 hours a day. For those patients who have received Radiology results, the interpretation of your X-ray as given to you by our Emergency Department physician is only a preliminary report. The Radiologist will review your films and if there is a change in the diagnosis you will be notified by phone. Please make sure you have provided a working phone number so we can reach you if necessary. In the event that you had a lab culture while you were a patient in the Emergency Department, you will be notified by phone if there is a need to change your antibiotic. Please make sure you have provided a working phone number so we can reach you if necessary. [facility] Emergency Department has provided you with a complete list of medications post discharge. Please inform your auto mechanics teacher/provider of your visit and for further instruction on these medications. Any specific questions regarding your chronic medications and dosages should be discussed with your primary care physician(s) and/or pharmacist. New Medications Printed Prescriptions famotidine (Pepcid 20 mg oral tablet) 1 tab(s) Oral 2 times a day for 14 Days. Refills: 0. omeprazole (omeprazole 20 mg oral delayed release capsule) 1 cap(s) Oral every day for 14 Days. Refills: 0. Visit Information Allergies: Substance Reaction Symptoms Type Comments shellfish Drug Vital Signs: Vitals and Measurements this Visit (last charted value for your 12/11/2018 visit) Vital Signs This Visit Temperature Oral: 36.6 DegC Peripheral Pulse Rate: 87 bpm Respiratory Rate: 18 br/min Systolic Blood Pressure: 113 mmHg Diastolic Blood Pressure: 83 mmHg SpO2: 98 % Oxygen Therapy: Room air Measurements This Visit Height/Length Dosin.340 cm Height/Length Estimated: 180.340 cm Weight Dosin.550 kg Weight Estimated: 82.550 kg Problems List: Problem Onset Comments GERD (gastroesophageal reflux disease) Migraine Patient Education Gastroesophageal Reflux Disease, Adult Normally, food travels down the esophagus and stays in the stomach to be digested. However, when a person has gastroesophageal reflux disease (GERD), food and stomach acid move back up into the esophagus. When this happens, the esophagus becomes sore and inflamed. Over time, GERD can create small holes (ulcers) in the lining of the esophagus. What are the causes? This condition is caused by a problem with the muscle between the esophagus and the stomach (lower esophageal sphincter, or LES). Normally, the LES muscle closes after food passes through the esophagus to the stomach. When the LES is weakened or abnormal, it does not close properly, and that allows food and stomach acid to go back up into the esophagus. The LES can be weakened by certain dietary substances, medicines, and medical conditions, including: ? Tobacco use. ? . ? Having a hiatal hernia. ? Heavy alcohol use. ? Certain foods and beverages, such as coffee, chocolate, onions, and peppermint. What increases the risk? This condition is more likely to develop in: ? People who have an increased body weight. ? People who have connective tissue disorders. ? People who use NSAID medicines. What are the signs or symptoms? Symptoms of this condition include: ? Heartburn. ? Difficult or painful swallowing. ? The feeling of having a lump in the throat. ? A?bitter taste in the mouth. ? Bad breath. ? Having a large amount of saliva. ? Having an upset or bloated stomach. ? Belching. ? Chest pain. ? Shortness of breath or wheezing. ? Ongoing (chronic) cough or a night-time cough. ? Wearing away of tooth enamel. ? Weight loss. Different conditions can cause chest pain. Make sure to see your health care provider if you experience chest pain. How is this diagnosed? Your health care provider will take a medical history and perform a physical exam. To determine if you have mild or severe GERD, your health care provider may also monitor how you respond to treatment. You may also have other tests, including: ? An endoscopy to?examine your stomach and esophagus with a small camera. ? A test that?measures the acidity level in your esophagus. ? A test that?measures how much pressure is on your esophagus. ? A barium swallow or modified barium swallow to show the shape, size, and functioning of your esophagus. How is this treated? The goal of treatment is to help relieve your symptoms and to prevent complications. Treatment for this condition may vary depending on how severe your symptoms are. Your health care provider may recommend: ? Changes to your diet. ? Medicine. ? Surgery. Follow these instructions at home: Diet ? Follow a diet as recommended by your health care provider. This may involve avoiding foods and drinks such as: ? Coffee and tea (with or without caffeine). ? Drinks that contain?alcohol. ? Energy drinks and sports drinks. ? Carbonated drinks or sodas. ? Chocolate and cocoa. ? Peppermint and mint flavorings. ? Garlic and onions. ? Horseradish. ? Spicy and acidic foods, including peppers, chili powder, radford powder, vinegar, hot sauces, and barbecue sauce. ? Sweetwater fruit juices and citrus fruits, such as oranges, jose guadalupe, and limes. ? Tomato-based foods, such as red sauce, chili, salsa, and pizza with red sauce. ? Fried and fatty foods, such as donuts, georgian fries, potato chips, and high-fat dressings. ? High-fat meats, such as hot dogs and fatty cuts of red and white meats, such as rib eye steak, sausage, ham, and centeno. ? High-fat dairy items, such as whole milk, butter, and cream cheese. ? Eat small, frequent meals instead of large meals. ? Avoid drinking large amounts of liquid with your meals. ? Avoid eating meals during the 2?3 hours before bedtime. ? Avoid lying down right after you eat. ? Do not exercise right after you eat. General instructions ? Pay attention to any changes in your symptoms. ? Take pszv-wia-npbowdr and prescription medicines only as told by your health care provider. Do not take aspirin, ibuprofen, or other NSAIDs unless your health care provider told you to do so. ? Do not use any tobacco products, including cigarettes, chewing tobacco, and e-cigarettes. If you need help quitting, ask your health care provider. ? Wear loose-fitting clothing. Do not wear anything tight around your waist that causes pressure on your abdomen. ? Raise (elevate) the head of your bed 6 inches (15cm). ? Try to reduce your stress, such as with yoga or meditation. If you need help reducing stress, ask your health care provider. ? If you are overweight, reduce your weight to an amount that is healthy for you. Ask your health care provider for guidance about a safe weight loss goal. ? Keep all follow-up visits as told by your health care provider. This is important. Contact a health care provider if: ? You have new symptoms. ? You have unexplained weight loss. ? You have difficulty swallowing, or it hurts to swallow. ? You have wheezing or a persistent cough. ? Your symptoms do not improve with treatment. ? You have a hoarse voice. Get help right away if: ? You have pain in your arms, neck, jaw, teeth, or back. ? You feel sweaty, dizzy, or light-headed. ? You have chest pain or shortness of breath. ? You vomit and your vomit looks like blood or coffee grounds. ? You faint. ? Your stool is bloody or black. ? You cannot swallow, drink, or eat. This information is not intended to replace advice given to you by your health care provider. Make sure you discuss any questions you have with your health care provider. Document Released: 08/24/2006 Document Revised: 04/13/2017 Document Reviewed: 03/10/2016 [employer] Interactive Patient Education ? 2017 [employer] Abdominal Pain, Adult Abdominal pain can be caused by many things. Often, abdominal pain is not serious and it gets better with no treatment or by being treated at home. However, sometimes abdominal pain is serious. Your health care provider will do a medical history and a physical exam to try to determine the cause of your abdominal pain. Follow these instructions at home: ? Take hjli-jpb-cjqyxgm and prescription medicines only as told by your health care provider. Do not take a laxative unless told by your health care provider. ? Drink enough fluid to keep your urine clear or pale yellow. ? Watch your condition for any changes. ? Keep all follow-up visits as told by your health care provider. This is important. Contact a health care provider if: ? Your abdominal pain changes or gets worse. ? You are not hungry or you lose weight without trying. ? You are constipated or have diarrhea for more than 2?3 days. ? You have pain when you urinate or have a bowel movement. ? Your abdominal pain wakes you up at night. ? Your pain gets worse with meals, after eating, or with certain foods. ? You are throwing up and cannot keep anything down. ? You have a fever. Get help right away if: ? Your pain does not go away as soon as your health care provider told you to expect. ? You cannot stop throwing up. ? Your pain is only in areas of the abdomen, such as the right side or the left lower portion of the abdomen. ? You have bloody or black stools, or stools that look like tar. ? You have severe pain, cramping, or bloating in your abdomen. ? You have signs of dehydration, such as: ? Dark urine, very little urine, or no urine. ? Cracked lips. ? Dry mouth. ? Sunken eyes. ? Sleepiness. ? Weakness. This information is not intended to replace advice given to you by your health care provider. Make sure you discuss any questions you have with your health care provider. Document Released: 08/24/2006 Document Revised: 06/03/2017 Document Reviewed: 04/27/2017 [employer] Interactive Patient Education ? 2017 [employer]. Viruses or Bacteria What?s got you sick? Antibiotics only treat bacterial infections. Viral illnesses cannot be treated with antibiotics. When an antibiotic is not prescribed, ask your healthcare professional for tips on how to relieve symptoms and feel better. Usual Cause Illness Viruses Bacteria Antibiotic Needed Cold/Runny Nose NO Bronchitis/Chest Cold (in otherwise healthy children and adults) NO Whooping Cough Yes Flu NO Strep Throat Yes Sore Throat (except strep) NO Fluid in the middle ear (otitis media with effusion) NO Urinary Tract Infection Yes Antibiotics Aren?t Always the Answer www.cdc.gov/getsmart GET SMART Know When Antibiotics Work U.S. Department of Health and Human Services Centers for Disease Control and Prevention July 2014 Normal [facility] Extra Redon 12-11-2018 Tube Collected Yes [facility] Comment on above: Performed By: #### 1 [id number], [id number] #### [facility] (DEFAULT) [address] [place] [address] 45025 Lactic Acidon 12-11-2018 Lactate [Moles/Vol] 7.7 mg/dL Normal 4.5-19.8 [facility] Comment on above: Performed By: #### 2 [id number] ####[facility] (DEFAULT)[address] [place] [address] 08165 Lipaseon 12-11-2018 Lipase Level 38.0 IU/L Normal 22.0-51.0 [facility] Comment on above: Performed By: #### 1 [id number], [id number] #### [facility] (DEFAULT) [address] [place] [address] 27936 Test Urine 1on U Preg Negative [facility] Comment on above: Performed By: #### 3 [id number], [id number] #### [facility] (DEFAULT) [address] [place] [address] 63786 U Preg Internal Control Pass [facility] Comment on above: Performed By: #### 3 [id number], [id number] #### [facility] (DEFAULT) [address] [place] [address] 06176 UA w Culture if Ind Standard on 12-11-2018 Breakpoint UA [facility] Comment on above: Performed By: #### 3 [id number], [id number] #### [facility] (DEFAULT) [address] [place] [address] 54330 Color (U) YELLOW [facility] Comment on above: Performed By: #### 3 [id number], [id number] #### [facility] (DEFAULT) [address] [place] [address] 69836 Culture? Not Indicated [facility] Comment on above: Performed By: #### 3 [id number], [id number] #### [facility] (DEFAULT) [address] [place] [address] 27727 Glucose (U) [Mass/Vol] Negative [facility] Comment on above: Performed By: #### 3 [id number], [id number] #### [facility] (DEFAULT) [address] [place] [address] 98394 Ketones Ql (U) Negative [facility] Comment on above: Performed By: #### 3 [id number], [id number] #### [facility] (DEFAULT) [address] [place] [address] 50975 Micro? Not Indicated [facility] Comment on above: Performed By: #### 3 [id number], [id number] #### [facility] (DEFAULT) [address] [place] [address] 32180 UA Bilirubin Negative Normal [facility] Comment on above: Performed By: #### 3 [id number], [id number] #### [facility] (DEFAULT) [address] [place] [address] 11776 UA Blood Negative Normal NEGATIVE [facility] Comment on above: Performed By: #### 3 [id number], [id number] #### [facility] (DEFAULT) [address] [place] [address] 63820 UA Clarity CLEAR Normal CLEAR [facility] Comment on above: Performed By: #### 3 [id number], [id number] #### [facility] (DEFAULT) [address] [place] [address] 49230 UA Leuk Est Negative Normal NEGATIVE [facility] Comment on above: Performed By: #### 3 [id number], [id number] #### [facility] (DEFAULT) [address] [place] [address] 32338 UA Nitrite Negative Normal NEGATIVE [facility] Comment on above: Performed By: #### 3 [id number], [id number] #### [facility] (DEFAULT) [address] [place] [address] 98750 UA pH 6.0 5-8 [facility] Comment on above: Performed By: #### 3 [id number], [id number] #### [facility] (DEFAULT) [address] [place] [address] 68236 UA Protein Negative Normal NEGATIVE [facility] Comment on above: Performed By: #### 3 [id number], [id number] #### [facility] (DEFAULT) [address] [place] [address] 50251 UA Spec Grav >=1.030 1.001-1.035 [facility] Comment on above: Performed By: #### 3 [id number], [id number] #### [facility] (DEFAULT) [address] [place] [address] 76749 UA Urobilinogen 0.2 mg/dL Normal 0.2-1.0 [facility] Comment on above: Performed By: #### 3 [id number], [id number] #### [facility] (DEFAULT) [address] [place] [address] 47506 Urine Source Clean Catch Normal [facility] Comment on above: Performed By: #### 3 [id number], [id number] #### [facility] (DEFAULT) [address] [place] [address] C-SPINE WO CONon 09-19-20 CT C-SPINE WO CON [address] [place] [address] Patient: LYNNE LAWS Exam Date: 09/18/2017DOB: 1985 Gender:F : DR BURKE HOPE . Admission #: [id number] : Order #: [id number] HERE TO VIEW EXAM RADIOLOGY REPORT CT OF THE CERVICAL SPINE WITHOUT CONTRAST 09-18-17: Sagittal and coronal reconstruction images performed. HISTORY: Acute left upper extremity numbness extending from the elbow to the hand. FINDINGS: There is normal alignment of the cervical vertebral bodies with no acute cervical spine fracture or dislocation. Transpedicular osseous fusion is noted on the right and left side at the C4 and C5 levels with vertically oriented fixation bars. Normal thickness of the prevertebral soft tissues. IMPRESSION:1. NO ACUTE CERVICAL SPINE FRACTURE OR DISLOCATION. 2. DORSAL MID CERVICAL SPINE FUSION WITH TRANSPEDICULAR SCREW FIXATION AT THE C4 AND C5 LEVEL. 3. THERE IS SLIGHT EXTENSION OF THE DISTAL SCREW SEGMENTS BEYOND THE CORTICAL MARGIN OF THE SETS AT THE C4 AND C5 LEVELS ON THE RIGHT AND LEFT SIDE, LEFT GREATER THAN RIGHT. THIS IS OF UNCERTAIN CLINICAL SIGNIFICANCE. Dictated by: Paulette Flores BN on 09/19/2017 at 05:12 Transcribed by: Teresita on 09/25/2017 at 20:04 Approved by: Jayson Magana M.D. on 09/27/2017 at 11:32 Normal [facility] Vital Signs Date Time Vital Sign Value Performing Clinician Facility 08-16-2023 15:40-0400 Body height 178.44 cm Keron Carson Other [employer] Other 08-16-2023 15:40-0400 Body mass index (BMI) [Ratio] 30.91 kg/m2 Keron Carson Other [facility] [employer] Other 08-16-2023 15:40-0400 Body weight 98.43 kg Keron Carson Other [employer] [employer] Other 08-16-2023 15:40-0400 Diastolic blood pressure 80 mm[Hg] Keron Carson Other [employer] [employer] Other 08-16-2023 15:40-0400 Systolic blood pressure 132 mm[Hg] Keron Carson Other [facility] [employer] Other 02-24-2023 14:00-0400 Body height 178.44 cm Keron Carson Other [facility] [employer] Other 12-23-2022 14:40-0500 Body height 178.44 cm Keron Carson Other [facility] [employer] Other 12-23-2022 14:40-0500 Body mass index (BMI) [Ratio] 30.63 kg/m2 Keron Carson Other [facility] [employer] Other 12-23-2022 14:40-0500 Body weight 97.52 kg Keron Carson Other [employer] [employer] Other 10-12-2022 14:00-0500 Body height 178.44 cm Keron Carson Other [employer] Other 10-12-2022 14:00-0500 Body mass index (BMI) [Ratio] 31.05 kg/m2 Keron Carson Other [facility] [employer] Other 10-12-2022 14:00-0500 Body weight 98.88 kg Keron Carson Other [employer] [employer] Other 09-11-2022 12:00-0400 Body temperature 98.3 [degF] PHYSICIAN NO [facility] 09-11-2022 12:00-0400 Diastolic blood pressure 91 mm[Hg] PHYSICIAN NO [facility] 09-11-2022 12:00-0400 Heart rate 69 /min PHYSICIAN NO [facility] 09-11-2022 12:00-0400 Respiratory rate 12 /min PHYSICIAN NO [facility] 09-11-2022 12:00-0400 SaO2% (BldA) [Mass fraction] 95 % PHYSICIAN NO [facility] 09-11-2022 12:00-0400 Systolic blood pressure 149 mm[Hg] PHYSICIAN NO [facility] 09-11-2022 04:33-0400 Body weight 98.2 kg PHYSICIAN NO [facility] 09-11-2022 00:00-0400 Inhaled oxygen concentration 95 % PHYSICIAN [facility] 09-10-2022 10:30-0400 Inhaled oxygen flow rate 2 L/min PHYSICIAN NO [facility] 09-10-2022 07:04-0400 Body height 180.34 cm PHYSICIAN NO [facility] 09-10-2022 07:04-0400 Body mass index (BMI) [Ratio] 28.7 kg/m2 PHYSICIAN MP BARBA [facility] 06-29-2022 10:45-0400 Body height 178.44 cm Henok Dittlalo Other [employer] Other 06-29-2022 10:45-0400 Body mass index (BMI) [Ratio] 31.05 kg/m2 Henok Crawfrod Other [employer] Other 06-29-2022 10:45-0400 Body weight 98.88 kg Henok Ditty Other [employer] Other Encounters Encounter Date Encounter Type Care Provider Facility Start: 12-21-2023 End: 12-21-2023 ambulatory Facility:[facility] Start: 09-02-2023 End: 09-02-2023 ambulatory Keron Carson Other [employer] Other Start: 09-02-2023 Telephone encounter Keron Carson [facility] [employer] [facility] Start: 08-16-2023 End: 08-16-2023 ambulatory Keron Carson Other [employer] Other Start: 08-16-2023 Office outpatient visit 15 minutes Keron Carson [facility] Start: 02-24-2023 End: 02-24-2023 ambulatory Keron Carson Other [employer] Other Start: 02-24-2023 Office outpatient visit 15 minutes Keron Carson [facility] Start: 02-17-2023 End: 02-17-2023 ambulatory Keron Carson Facility:[facility] Start: 02-17-2023 End: 02-17-2023 ambulatory NON STAFF [facility] Work Phone: Start: 02-17-2023 End: 02-17-2023 Patient encounter procedure [facility] [place] Work Phone: Start: 12-23-2022 End: 12-23-2022 ambulatory Keron Carson Other [employer] Other Start: 12-23-2022 Office outpatient visit 15 minutes Keron Carson [facility] Start: 12-21-2022 End: 12-21-2022 ambulatory Keron Carson Facility:[facility] Start: 12-21-2022 End: 12-21-2022 ambulatory NON STAFF [facility] Work Phone: Start: 12-21-2022 End: 12-21-2022 Patient encounter procedure MD Keron Carson Work Phone: [facility] Work Phone: Start: 10-12-2022 End: 10-12-2022 ambulatory Keron Yamileth Other [employer] Other Start: 10-12-2022 Postop follow up visit related to original px Keron Carson [facility] Start: 10-01-2022 End: 10-01-2022 ambulatory Keron Carson Facility:[facility] Start: 10-01-2022 End: 10-01-2022 ambulatory PHYSICIAN NO [facility] Work Phone: Start: 10-01-2022 End: 10-01-2022 Patient encounter procedure PHYSICIAN NO [facility] Start: 09-10-2022 Admission to same da y surgery center Keron Carson [facility] Start: 09-10-2022 End: 09-10-2022 ambulatory Keron Carson Other [employer] Other Start: 09-09-2022 End: 09-09-2022 ambulatory Keron Carson Other [employer] Other Start: 09-09-2022 Patient encounter procedure Keron Carson [facility] Start: 09-08-2022 End: 09-08-2022 ambulatory Keron Carson Other [employer] Other Start: 09-08-2022 Patient encounter procedure Keron Carson [facility] Start: 09-07-2022 End: 09-11-2022 Evaluation and management of inpatient PHYSICIAN NO FAMILY Facility:[facility] Start: 09-07-2022 End: 09-11-2022 Evaluation and management of inpatient PHYSICIAN NO FAMILY [facility] Start: 07-20-2022 End: 07-20-2022 ambulatory Henok Reemagiulianolalo Other [employer] Other Start: 07-20-2022 Telephone encounter [facility]ok MCCALL [facility] Start: 06-29-2022 End: 06-29-2022 ambulatory Henok Crawford Other [employer] Other Start: 06-29-2022 [facility] visit new patient Henok Benavidezwilfrid [facility] Start: 09-19-2017 End: 09-19-2017 Ambulatory BURKE MACON Facility:[facility] Procedures Date Procedure Procedure Detail Performing Clinician Start: 02-17-2023 X-ray of cervical spine Start: 12-21-2022 X-ray of cervical spine MD Keron Carson Work Phone: Start: 10-01-2022 X-ray of cervical spine PHYSICIAN NO FAMILY Start: 09-10-2022 X-ray of cervical spine PHYSICIAN NO FAMILY Start: 09-07-2022 X-ray of cervical spine PHYSICIAN NO FAMILY Plan of Treatment Date Care Activity Detail Author Start: 09-11-2022 [facility] Start: 09-10-2022 [facility] Start: 09-07-2022 Consultation [facility] Start: 09-07-2022 Fusion of 2 or more Cervical Vertebral Joints with Autologous Tissue Substitute, Posterior Approach, Posterior Column, Open Approach Fusion of 2 or more Cervical Vertebral Joints with Autologous Tissue Substitute, Posterior Approach, Posterior Column, Open Approach [facility] Start: 09-07-2022 Release Cervical Ner ve, Open Approach Release Cervical Nerve, Open Approach [facility] Start: 09-07-2022 Resection of Cervica l Vertebral Disc, Open Approach Resection of Cervical Vertebral Disc, Open Approach [facility] Patient referral [facility] Work Phone: Payers Date Payer Category Payer Private Health Insurance [id number] 2022 Self-pay [id number] 2022 Unknown [id number] 1959 Private Health Insurance [id number] Medicaid Medicaid [id number] Medicaid [employer] [id number] Private Health Insurance [employer] [id number] Unknown MMO [id number] Unknown Regular Auto/Liability [id number] Unknown [id number] 31 Unknown [id number] 31 Unknown [id number] 31 Unknown [id number] 31 Social History Date Type Detail Facility Sex Assigned At [employer] Other Start: 09-10-2022 End: 09-10-2022 Tobacco smoking status NHIS Ex-smoker (finding) [facility] Start: 1985 Sex Assigned At Female F [facility] Medical Equipment Procedure Code Equipment Code Equipment Origin al Text Equipment Identifier Dates BONE 7MM DUO FORTITUDE SERIES FDA Start: 09-10-2022 Spinal fixation plate, non-bioabsorbable ()[id number] FDA Start: 09-10-2022 Spinal fixation plate, non-bioabsorbable ()[id number] FDA Start: 09-10-2022 Intervertebral-b ari internal spinal fixation system [id number] FDA Start: 09-10-2022 BONE 7MM DUO FORTITUDE SERIES FDA Start: 09-10-2022 BONE 7MM DUO FORTITUDE SERIES FDA Start: 09-10-2022 Goals Date Patient Goal Desired Activity /State Functional Status Date Assessment Result Facility 09-11-2022 Functional status Patient at Baseline [facility] Work Phone: Mental Status Date Assessment Result Facility 09-11-2022 Cognitive function Cognitive Sta tus Patient at Baseline [facility] Work Phone: Clinical Notes 06-29-2022 to 08-16-2023 Note Date & Type Note Facility 08-16-2023 Evaluation note Encounter Date Diagnosis Assessment Notes Jul, Neck pain (ICD-10 - M54.2) I think this patient is best treated with pain management. She has shoulder inflammation she has palpable tenderness. She has normal strength in a C8 distribution. I do not think this is an acute C8 radiculopathy. She has pain that is frankly out of proportion to my degree of palpation. I have given her a 9-day prednisone taper and some Flexeril which will not be refilled. I will see her again in 8 weeks but I am recommending continued pain management.I will also send her to physical therapy for continued care. Jul, Cervical radiculopathy at C8 (ICD-10 - M54.12) Jul, Acute pain of left shoulder (ICD-10 - M25.512) [employer] Other 03-30-2023 Evaluation note* Encounter Date Diagnosis Assessment Notes Treatment Notes Treatment Clinical Notes Jan, Cervical disc disorder at C6-C7 level with radiculopathy (ICD-10 - M50.123) I independently looked at the x-ray of the cervical spine and the report and compared to previous there is indeed graft subsidence of about 50% at C6-7. The pertinent facts are that this patient had a severe C7 radiculopathy for an extended period of time prior to the decompression. That numbness has been there for an extended period of time prior to the decompression. It did not get better with the decompression. It did not necessarily get worse with the changes at the graft x-ray. Given all these findings I think the probability of a posterior cervical decompression in light of the symptoms that she has for the length of time would probably be of very little benefit and I discussed this with the patient in detail and I believe she understands and agrees at this point she declined surgical intervention I agree with that. She does have pain in the bicep tendon of her left arm she has extensor forearm tenderness all myofascial in nature these are not radicular symptoms. [employer] Other 01-26-2023 Evaluation note* Encounter Date Diagnosis Assessment Notes Treatment Notes Treatment Clinical Notes Nov, Spondylolisthesis, cervical region (ICD-10 - M43.12) Nov, Left cervical radiculopathy (ICD-10 - M54.12) Nov, History of fusion of cervical spine (ICD-10 - Z98.1) I independently reviewed the x-ray of the cervical spine presently and compared to previous; there has definitely been subsidence especially of the C6-7 graft. The patient is having persistent tingling down her left arm which was present 1 month after surgery when she had good graft height. She feels as though the tingling may be slightly worse. This is a bit concerning but she has absolutely no pain. I have asked the patient to come back in 2 months with another dynamic back x-ray. if the tingling is worse in the left arm I would consider offering her a cervical decompression posteriorly in form of foraminotomy. Patient understands the above. iI is also possible the tingling may never improve. [employer] Other 11-15-2022 Evaluation note* Encounter Date Diagnosis Assessment Notes Treatment Notes Treatment Clinical Notes Sep, Spondylolisthesis, cervical region (ICD-10 - M43.12) Lynne is doing very well, her radicular symptoms are completely gone. She does still complain of some weakness in her arm and her hand and wishes to do physical therapy, I sent a referral to [facility] in [place] for this. I independently reviewed the x-ray of her cervical spine showing good hardware placement good bony alignment. I will see her again in 2 months with an x-ray of her cervical spine. Patient has requested to return to work October 28, she is aware of her limits. Sep, Left cervical radiculopathy (ICD-10 - M54.12) Sep, History of fusion of cervical spine (ICD-10 - Z98.1) [employer] Other 08-23-2022 Evaluation note* Encounter Date Diagnosis Assessment Notes Treatment Notes Treatment Clinical Notes Jun, GERD (gastroesophageal reflux disease) (ICD-10 - K21.9) [employer] Other 08-02-2022 Evaluation note* Encounter Date Diagnosis Assessment Notes Treatment Notes Treatment Clinical Notes Jun, GERD (gastroesophageal reflux disease) (ICD-10 - K21.9) STOP SUCRALFATE START LANSOPRAZOLE 30 MG BID IF NOT IMPROVED WILL CONSIDER EGD/ GONZALEZ RTO 3 MONTHS Jun, Abdominal pain (ICD-10 - R10.9) [employer] Other Evaluation noteNo InformationNort [employer] Other evaluation note* Diagnosis Onset Date Resolution Status Cervical disc disorder at C6-C7 level with radiculopat hy acute Left arm weakness acute Neck fracture acute [facility] Work Phone: Evaluation noteNo assessment information available [facility] [employer] Work Phone: History general Narrative - Reported* Type Description Date Medical History GERD Surgical History neck surgery Surgical History Procedure:20 hr labor ;Dise ase: 2008 Surgical History knee surgery 2012 Surgical History Procedure:12 hr labor ;Dise ase: 2006 Surgical History Procedure: 2 hr labor ;Dise ase: 2016 Surgical History Laparoscopic Cholecystectomy-[facility]i [facility] 12/2019 Hospitalization History cb [employer] Other History general Narrative - Reported* Type Description Date Medical History GERD Surgical History neck surgery Surgical History Procedure:20 hr labor ;Dise ase: 2009 Surgical History knee surgery 2011 Surgical History Procedure:12 hr labor ;Dise ase: 2007 Surgical History Procedure: 2 hr labor ;Dise ase: 2016 Surgical History Laparoscopic Cholecystectomy-[facility]i e[facility] 12/2019 Hospitalization History cb Hospitalization History see above surg. hx. [employer] Other reason for visit NarrativePT HERE AT REQUEST OF DR CRUZ FOR EVALUATION AND TREATMENT OF GERD / ABDOMINAL PAIN, REFERRAL NOTE RECEIVEDManchester [employer] Other Reason for visit NarrativePain Medicine Referral UpdateManchester [employer] Other Summary Purpose Family History No Family History Records Found Relationship Condition Age at Onset Recorded Date/T mulugeta Not Specified Diabetes mellitus Unknown Anemia Unknown father History of cardiac d efibrillator placement Unknown Schizophrenia Unknown grandparent Malignant neoplasm of lung Unknown family member Malignant neoplasm of lung Unknown grandparent Malignant neoplasm of breast Unknown Malignant neoplasm of lung Unknown sister Anemia Unknown Advance Directives No Advanced Directives Records Found Advance Directive Response Recorded Date/ Time Advance Directives No December 25, 2018 8:09am Advance Directive Response Recorded Date/ Time Advance Directives No December 25, 2018 9:09am Hospital Course Note [facility] Clinical Discharge Summary PERSON INFORMATION Name LYNNE LAWS Age 34 Years 1985 Sex FEMALE Language Divehi PCP Provider, None Marital Status Med Service Observation Acct# Arrival 10/28/2019 23:15:38 Visit Reason Nausea; Vomiting; ABD PAIN Acuity LOS 000 13:08 Address: [address] [place] [address] Comment: PROVIDER INFORMATION VITALS INFORMATION Vital Sign Triage Latest Temp Oral Temp Temporal Temp Intravascular Temp Axillary Temp Rectal 02 Sat 100 % 98 % Respiratory Rate Peripheral Pulse Rate Apical Heart Rate Blood Pressure / 88 mmHg / 72 mmHg Comment: MEDICAL INFORMATION Allergy Info: shellfish Prescriptions Given: lactobacillus acidophilus (Acidophilus Extra Strength oral capsule) 1 cap(s) Oral every day. Refills: 0. Misc Prescription (work note) Please excuse from work 10/24/19. Refills: 0. ondansetron (Zofran ODT 4 mg oral tablet, disintegrating) 1 tab(s) Oral Every 8 hours as needed as nee (more content not included)... Chief Complaint and Reason for Visit Chief Complaint cervical disk heniat ed M50.20 Reason for Visit Cervical disc disord er at C6-C7 level with radiculopathy Left arm weakness Neck fracture Chief Complaint M50.20 m50.20 Chief Complaint m50.20 m43.12 Reason for Referral Reason evaluate and treat f or neck and shoulder pain Diagnosis 1 Herniated cervical d isc (M50.20) [facility] Referring Provider First Name Keron Referring Provider Last Name Yamileth Referring Provider Specialty Neurologica l Surgery Referred Organization [facility] Referred Provider Stuart Carrasco Jr. Referred Address [address] [place], [place],[address] Referred Provider Specialty Pain Medicin e Referral Priority Routine Reason evaluate and treat f or neck and arm pain Diagnosis 1 Left cervical radicu lopathy (M54.12) Referral Organization [facility] Referring Provider First Name Keron Referring Provider Last Name Yamileth Referring Provider Specialty Neurologica l Surgery Referred Organization [facility] Referred Address [address] [place], [place],[address] Referred Provider 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 Referral Priority Routine Reason Evaluate and Treat O utpatient PT for Arm Strengthening Diagnosis 1 Spondylolisthesis, c ervical region (M43.12) Referral Organization [facility] Referring Provider First Name Keron Referring Provider Last Name Yamileth Referring Provider Specialty Neurologica l Surgery Referred Organization [facility] Referred Address [address] [place], [place],[address] Referred Provider 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 Referral Priority Routine Additional Source Comments INFORMATION SOURCE (unrecogn ized section and content) DATE CREATED AUTHOR 05/23/2018 [facility] DATE CREATED AUTHOR AUTHOR'S ORGANIZ ATION 11/07/[address] [facility] DATE CREATED AUTHOR AUTHOR'S ORGANIZ ATION 03/03/2023 [facility] DATE CREATED AUTHOR AUTHOR'S ORGANIZ ATION 12/22/2023 [facility] REASON FOR VISIT (unrecogniz ed section and content) RXNo InformationACDFNo Infor mation1 mo ACDF w/xray3-MONTH F/U ACDF W/ X-RAY5 mo po ACDF C5-6 w/xrayincreased c/s pain and in left arm Care Teams (unrecognized sec tion and content) Team Status: Inactive Member Role Status Dates PHYSICIAN NO FAMILY Primary Care Provider Active Gt Haro , Admit Provider Active Eladio Mayo MD Attending Provider Active Brian Scott , CSTFA Other Provider Active Keron Carson MD Other Provider Active Jim Cardona MD Other Provider Active Team Status: Inactive Member Role Status Dates Keron Carson MD Attending Provider Active NON STAFF Primary Care Provider Active Team Status: Active Member Role Status Dates NON STAFF Primary Care Provider Active Team Status: Inactive Member Role Status Dates NON STAFF Primary Care Provider Active Keron Carson MD Attending Provider Active Team Status: Active Member Role Status Dates Michael Cruz PA-C Primary Care Provider Activ e Team Status: Inactive Member Role Status Dates Keron Carson MD Attending Provider Active Michael Cruz PA-C Primary Care Provider Activ lev Goals (unrecognized section and content) Goals may be documented in a n alternate section FOR RECORDS PERTAINING TO PATIENTS WHO ARE OR HAVE BEEN ENROLLED IN A CHEMICAL DEPENDENCY/SUBSTANCEABUSE PROGRAM, SOME INFORMATION MAY BE OMITTED. This clinical summary was aggregated from multiple sources. Caution should be exercised in using it in the provision of clinical care. This summary normalizes information from multiple sources, and as a consequence, information in this document may materially change the coding, format and clinical context of patient data. In addition, data may be omitted in some cases. CLINICAL DECISIONS SHOULD BE BASED ON THE PRIMARY CLINICAL RECORDS. [employer] provides no warranty or guarantee of the accuracy or completeness of information in this document.
[2024-08-09] MEDS: ALBUTEROL SULFATE 2.5 MG/3 ML VIAL NEB IH (12:40)
[2024-08-09 12:51] LABS: HCG Qualitative Urine* NEGATIVE (NEGATIVE); Internal Control Within Normal Limits
[2024-08-09 13:10] LABS: Internal Control Within Normal Limits; SARS-CoV-2 Ag NEGATIVE (NEGATIVE)
[2024-08-09 14:22] VITALS: BP 118/80; PULSE 98; O2SAT 99
== END 2024-08-09 14:25 | disposition home or self-care (01) ==
PROVIDERS: Emergency Provider Emergency Medicine
DX: J06.9 Acute upper respiratory infection, unspecified (principal)
CPT/HCPCS: 71045; 84703; 87811; 94640; 99284

== ENCOUNTER 2024-12-09 19:44 | Emergency (ER) | payer OTHER, SELFPAY ==
[2024-12-09 19:51] VITALS: BP 135/115; PULSE 98; TEMP 36.8; O2SAT 98; BMI 30.7
--- OUTSIDE RECORDS SUMMARY | 2024-12-09 19:51 | XMS_ITS | CCD ---
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 Name Role Phone BURKE HOPE Unavailable Unavailable JAYY, BURKE Unavailable Unavailable MISC, DOCTOR Unavailable Unavailable JAYY, BURKE Unavailable Unavailable Lawrencelalo Henok Unavailable Keron Carson Unavailable NO FAMILY, PHYSICIAN Primary Care Provider Unava ilable DO Gt Haro Admit Provider MD Eladio Mayo Attending Provider Clonch, CSTFA Brian Other Provider UnavailMD Keron Rodriguez Other Provider MD Jim Cardona Other Provider MD Keron Carson Attending Provider NON STAFF Primary Care Provider Unavaililia e NON STAFF Primary Care Provider Unavaililia e MD Keron Carson Attending Provider [phone] BEBE Cruz Primary Care Provider Keron Carson Admitting Unavailable Keron Carson Attending Unavailable NON STAFF Primary Care Unavailable Keron Carson Admitting Unavailable Keron Carson Attending Unavailable Nely Cruz Primary Care Unavailable NO FAMILY, PHYSICIAN Primary Care Unavailable Gt Haro Admitting Unavailable Clonch, Brian Consulting Unavailable Eladio Mayo Attending Unavailab le Keron Carson Consulting Unavailable Jim Cardona Consulting Unavailable Keron Carson Admitting Unavailable Keron Carson Attending Unavailable NON STAFF Primary Care Unavailable Nely Cruz PA-C Primary Care Provider [phone] BUFFY TRINH Attending Unavailable NELY CRUZ Referring Unavailable NELY CRUZ Primary Care Unavailable Allergies Allergy Classification Reported Allergen(s) Allergy Type Date of Onset Reaction(s) Facility (10 sources) Shellfish Propensity to adverse reactions Unknown [facility] Other (10 sources) Shellfish Drug allergy Unknown [facility] Other (4 sources) Shellfish; Translations: [shellfish derived] Allergy to substance 0 Anaphylaxis [facility] (2 sources) Shellfish; Translations: [SHELLFISH CONTAINING PRODUCTS] Propensity to adverse reactions to drug Rash [facility] Medications Current Medications Medication Drug Class(es) Dates [...] 12:00am cyclobenzaprine hydrochloride 10 mg oral tablet (6 sources) Muscle Relaxant Start: 12-20-2022 take 1 tablet by mouth every twenty-four [...] Orally Once a day for 30 day(s) 29 Aug, 2022 Active ibuprofen 800 mg oral tablet (1 source) Nonsteroidal Anti-inflammatory Drug ibuprofen (MOTRIN) 800 mg tablet 3 (three) times a day. Active ketorolac tromethamine 10 mg oral tablet [...] 5 - 10 MG PO Q6H 40 8 September 11, 2022 predniSONE 5 mg oral [...] (Polacrilex) Discontinued 2 MG BUCCAL Q2H 30 30 April 17, 2020 12:00am September 07, [...] Problem Date Documented Date Episodic/Chronic Abdominal pain (12 sources) Abdominal pain; Translations: [Unspecified abdominal pain] [...] (1 source) Pain in left shoulder Episodic Prolapse of female genital organs (4 sources) Cystocele; Translations: [Uterovaginal prolapse, unspecified] Onset: 09-12-2024 09-12-2024 Chronic Spondylosis; intervertebral disc disorders; other back problems (11 sources) Displacement of cervical intervertebral disc; Translations: [Other cervical disc displacement, unspecified cervical region] Onset: 08-04-2021 11-26-2021 Chronic Sprains and strains (6 sources) Acute cervical [...] Problem Classification Problem Date Documented Date Episodic/Chronic Biliary tract disease (1 source) Cholecystitis; Translations: [Cholecystitis, unspecified] Onset: 01-24-2020 01-24-2020 Episodic Malaise and fatigue (3 sources) Weakness; Translations: [WEAKNESS] Onset: 09-19-2017 Episodic Other connective tissue disease (2 sources) Other symptoms and signs involving the musculoskeletal system; Translations: [Other musculoskeletal symptoms referable to limbs] Onset: 09-07-2022 09-11-2022 Episodic Spondylosis; intervertebral disc disorders; other back problems (20 sources) Neck pain; Translations: [Cervicalgia] Onset: 09-03-2021 09-08-2022 Episodic Unclassified (1 source) Onset: 11-09-2022 11-09-2022 Results Test Name Value Interpretation Reference Range Facility XR cerv spine AP/LAT/FLX/EXT on 02-17-2023 XR cerv spine AP/LAT/FLX/EXT [facility] [place] [address] XRay Report Signed Patient: JuliannaLynne boyle MR#: [id number] : 1985 Acct:[id number] Age/Sex: 37 / F ADM Date: 02/17/23 Loc: XD Room: Type: REG CLI Attending Dr: Keron Carson MD Copies to: [...] Candido Sanchez M.D.02/17/2023 3:09 PM Dictation Location: [place] [address] Transcribed By: [facility] 02/17/23 1509 Dictated By: Candido Sanchez II, MD 02/17/23 1506 Signed By: 02/17/23 1509 Normal [facility] XR cervical spine 2Von 12-21 XR cervical spine 2V [facility] [place] [address] XRay Report Signed Patient: Lynne Levine MR#: [id number] : 1985 Acct:[id number] Age/Sex: 37 / F ADM Date: 12/21/22 Loc: XD Room: Type: REG CLI Attending Dr: Keron Carson MD Copies to: [...] COMPLICATION. Impression dictated by: Bennett Delaney Jr., D.O.12/21/2022 3:34 PM Dictation Location: [facility]--12 Transcribed By: NII 12/21/22 1534 Dictated By: Bennett Delaney Jr, DO 12/21/22 1532 Signed By: 12/21/22 1534 Normal [facility] XR cervical spine 2Von 10-01 XR cervical spine 2V [facility] [place] [address] XRay Report Signed Patient: Lynne Levine MR#: [id number] : 1985 Acct:[id number] Age/Sex: 37 / F ADM Date: 10/01/22 Loc: XD Room: Type: [facility] Attending Dr: Keron Carson MD Copies [...] Delaney Jr., D.O.10/01/2022 4:23 PM Dictation Location: [facility] Transcribed By: NII 11/04/22 1623 Dictated By: Bennett Delaney Jr, DO 10/01/221622 Signed By: 10/01/221622 [facility] Basic Metabolic Panelon 08-28 Anion gap [Moles/Vol] 8.5 mmol/L Normal 6.0-15.0 [facility] Comment on above: Performed By: #### M G, SCAN CBC, BMP #### [facility] [address] Calcium [Mass/Vol] 8.7 mg/dL Normal 8.2-10.2 [facility] Comment on above: Performed By: #### M G, SCAN CBC, BMP #### [facility] [address] Chloride [Moles/Vol] 106 mmol/L Normal 95-114 [facility] Comment on above: Performed By: #### M G, SCAN CBC, BMP #### [facility] [address] CO2 [Moles/Vol] 24.4 mmol/L Normal 22.0-30.0 [facility] Comment on above: Performed By: #### M G, SCAN CBC, BMP #### [facility] [address] [place] [address] [place] Creatinine [Mass/Vol] 0.65 mg/dL Normal 0.44-1.03 [facility] Comment on above: Performed By: #### M G, SCAN CBC, BMP #### [facility] [address] [place] [address] [place] Creatinine Clr Calc Pharmacy 157.41 [facility] Comment on above: Performed By: #### M G, SCAN CBC, BMP #### [facility] [address] [place] [address] [place] Estimated GFR ( Cinthya > 60 [facility] Comment on above: Result Comment: GFR estimated reference range: According to KDOQI guidelines, <60 ml/min/1.73m2 is sufficient to diagnose a patient with chronic kidney disease. Performed By: #### M G, SCAN CBC, BMP #### [facility] [address] Estimated GFR (Non- Am > 60 Normal [facility] Comment on above: Performed By: #### M G, SCAN CBC, BMP #### [facility] [address] Glucose [Mass/Vol] 167 mg/dL High 70-100 [facility] Comment on above: Result Comment: [facility] Glucose Reference Range is dependent on time and content of last meal. Glucose of more than 200 mg/dL in a nonstressed, ambulatory subject supports the diagnosis of Diabetes Mellitus. ADA recommended reference range Performed By: #### M G, SCAN CBC, BMP #### [facility] [address] Potassium [Moles/Vol] 3.9 mmol/L Normal 3.5-5.1 [facility] Comment on above: Performed By: #### M G, SCAN CBC, BMP #### [facility] [address] Sodium [Moles/Vol] 135 mmol/L Low 136-146 [facility] Comment on above: Performed By: #### M G, SCAN CBC, BMP #### [facility] [address] Urea nitrogen [Mass/Vol] 13 mg/dL Normal 9-23 [facility] Comment on above: Performed By: #### M G, SCAN CBC, BMP #### [facility] [address] [place] [address] Basophils Auto (Bld) [#/Vol] Ordered By: Eladio Mayo on 09-11-2022 Basophils (Bld) [#/Vol] 0.0 10*3/uL 0.0-0.2 [facility] Basophils/100 WBC Auto (Bld) Ordered By: Eladio Mayo on 09-11-2022 Basophils/100 WBC (Bld) 0.1 % . [facility] Creatinine and Glomerular fi ltration rate.predicted panel (S/P/Bld)Ordered By: Eladio Mayo on 09-11-2022 Creatinine [Mass/Vol] 0.65 mg/dL 0.44-1.03 [facility] Eosinophils Auto (Bld) [#/Vo l]Ordered By: Eladio Mayo on 09-11-2022 Eosinophils (Bld) [#/Vol] 0.0 10*3/uL 0.0-0.45 [facility] Eosinophils/100 WBC Auto (Bl d)Ordered By: Eladio Mayo on 09-11-2022 Eosinophils/100 WBC (Bld) 0.0 % . [facility] Erythrocyte distribution wid th Auto (RBC) [Ratio]Ordered By: Eladio Mayo on 09-11-2022 Erythrocyte distribution width (RBC) [Ratio] 12.4 % 11.9-15.3 [facility] Estimated glomerular filtrat ion rate (GFR) non- AmericanOrdered By: Eladio Mayo on 09-11-2022 GFR/1.73 sq M.predicted among non-blacks MDRD (S/P/Bld) [Vol rate/Area] > 60 mL/Min [facility] Hematocrit Auto (Bld) [Volum e fraction]Ordered By: Eladio Mayo on 09-11-2022 Hematocrit (Bld) [Volume fraction] 39.4 % 34.0-46.4 [facility] Hemoglobin [Mass/volume] in BloodOrdered By: Eladio Mayo on 09-11-2022 Hemoglobin (Bld) [Mass/Vol] 13.0 g/dL 11.8-15.4 [facility] Laboratory - Chemistry and C hemistry - challengeOrdered By: Eladio Mayo on 09-11-2022 Magnesium [Mass/Vol] 2.2 mg/dL 1.6-2.6 [facility] Laboratory - Hematology and Cell countsOrdered By: Eladio Mayo on 09-11-2022 Nucleated RBC/100 WBC (Bld) [Ratio] 0.0 % 0-0.5 [facility] Leukocytes [#/volume] in Blo od by Automated countOrdered By: Eladio Mayo on 09-11-2022 WBC (Bld) [#/Vol] 13.2 10*3/uL 4.5-11.0 [facility] Lymphocytes Auto (Bld) [#/Vo l]Ordered By: Eladio Mayo on 09-11-2022 Lymphocytes (Bld) [#/Vol] 0.9 10*3/uL 1.00-4.8 [facility] Lymphocytes/100 WBC Auto (Bl d)Ordered By: Eladio Myao on 09-11-2022 Lymphocytes/100 WBC (Bld) 6.9 % . [facility] MCH Auto (RBC) [Entitic mass ]Ordered By: Eladio Mayo on 09-11-2022 MCH (RBC) [Entitic mass] 30.5 pg 24.7-34.3 [facility] MCHC Auto (RBC) [Mass/Vol]Or dered By: Eladio Mayo on 09-11-2022 MCHC (RBC) [Mass/Vol] 33.0 g/dL 32.0-35.0 [facility] MCV Auto (RBC) [Entitic vol] Ordered By: Eladio Mayo on 09-11-2022 MCV (RBC) [Entitic vol] 92.4 fL 80-100 [facility] Magnesiumon 09-11-2022 Magnesium [Mass/Vol] 2.2 mg/dL Normal 1.6-2.6 [facility] Comment on above: Result Comment: PERF ORMED BY: [place] [address] PATHOLOGIST CONTROLS DESIGNER SLIM SERRATO M.D. Performed By: #### M G, SCAN CBC, BMP #### [facility] [address] Monocytes Auto (Bld) [#/Vol] Ordered By: Eladio Mayo on 09-11-2022 Monocytes (Bld) [#/Vol] 0.9 10*3/uL 0.0-0.8 [facility] Monocytes/100 WBC Auto (Bld) Ordered By: Eladio Mayo on 09-11-2022 Monocytes/100 WBC (Bld) 6.4 % . [facility] Neutrophils Auto (Bld) [#/Vo l]Ordered By: Eladio Mayo on 09-11-2022 Neutrophils (Bld) [#/Vol] 11.4 10*3/uL 1.8-7.7 [facility] Neutrophils/100 WBC Auto (Bl d)Ordered By: Eladio Mayo on 09-11-2022 Neutrophils/100 WBC (Bld) 86.6 % . [facility] No Panel InformationOrdered By: Eladio Mayo on 09-11-2022 Estimated GFR () > 60 mL/Min [facility] Comment on above: GFR estimated refere nce range: According to KDOQI guidelines, <60 ml/min/1.73m2 is sufficient to diagnose a patient with chronic kidney disease. Pharmacy Creatinine Clearance (Chem 157.41 [facility] Platelet Estimate Normal Normal [facility] Platelet Morphology Comment Normal Normal [facility] Platelet mean volume Auto (B ld) [Entitic vol]Ordered By: Eladio Mayo on 09-11-2022 Platelet mean volume (Bld) [Entitic vol] 9.0 fL 6.3-10.7 [facility] Platelets Auto (Bld) [#/Vol] Ordered By: Eladio Mayo on 09-11-2022 Platelets (Bld) [#/Vol] 237 10*3/uL 150-450 [facility] RBC Auto (Bld) [#/Vol]Ordere d By: Eladio Mayo on 09-11-2022 RBC (Bld) [#/Vol] 4.27 10*6/uL 3.60-5.00 [facility] RBC morphologyOrdered By: Fr blaise Mayo on 09-11-2022 RBC morphology finding Nom (Bld) Normal [facility] Scan and CBCon 09-11-2022 Basophils (Bld) [#/Vol] 0.0 10*3/uL Normal 0.0-0.2 [facility] Comment on above: Performed By: #### M G, SCAN CBC, BMP #### [facility] [address] [place] [address] [place] Basophils/100 WBC (Bld) 0.1 % Normal . [facility] Comment on above: Performed By: #### M G, SCAN CBC, BMP #### [facility] [address] [place] [address] [place] Eosinophils (Bld) [#/Vol] 0.0 10*3/uL Normal 0.0-0.45 [facility] Comment on above: Performed By: #### M G, SCAN CBC, BMP #### [address] Eosinophils/100 WBC (Bld) 0.0 % Normal . [facility] Comment on above: Performed By: #### M G, SCAN CBC, BMP #### [address] Erythrocyte distribution width (RBC) [Ratio] 12.4 % Normal 11.9-15.3 [facility] Comment on above: Performed By: #### M G, SCAN CBC, BMP #### [address] Hematocrit (Bld) [Volume fraction] 39.4 % Normal 34.0-46.4 [facility] Comment on above: Performed By: #### M G, SCAN CBC, BMP #### [address] Hemoglobin (Bld) [Mass/Vol] 13.0 g/dL Normal 11.8-15.4 [facility] Comment on above: Performed By: #### M G, SCAN CBC, BMP #### [place] [address] [place] Lymphocytes (Bld) [#/Vol] 0.9 10*3/uL Low 1.00-4.8 [facility] Comment on above: Performed By: #### M G, SCAN CBC, BMP #### [place] [address] [place] Lymphocytes/100 WBC (Bld) 6.9 % Normal . [facility] Comment on above: Performed By: #### M G, SCAN CBC, BMP #### [address] [address] [place] MCH (RBC) [Entitic mass] 30.5 pg Normal 24.7-34.3 [facility] Comment on above: Performed By: #### M G, SCAN CBC, BMP #### [address] MCV (RBC) [Entitic vol] 92.4 fL Normal 80-100 [facility] Comment on above: Performed By: #### M G, SCAN CBC, BMP #### [address] Mean Corpuscular HGB Conc 33.0 g/dL Normal 32.0-35.0 [facility] Comment on above: Performed By: #### M G, SCAN CBC, BMP #### [address] Monocytes (Bld) [#/Vol] 0.9 10*3/uL High 0.0-0.8 [facility] Comment on above: Performed By: #### M G, SCAN CBC, BMP #### [address] Monocytes/100 WBC (Bld) 6.4 % Normal . [facility] Comment on above: Performed By: #### M G, SCAN CBC, BMP #### [address] Neutrophils (Bld) [#/Vol] 11.4 10*3/uL High 1.8-7.7 [facility] Comment on above: Performed By: #### M G, SCAN CBC, BMP #### [place] [address] [place] Neutrophils/100 WBC (Bld) 86.6 % Normal . [facility] Comment on above: Performed By: #### M G, SCAN CBC, BMP #### [address] Nucleated RBC/100 WBC (Bld) [Ratio] 0.0 % Normal 0-0.5 [facility] Comment on above: Performed By: #### M G, SCAN CBC, BMP #### [address] Platelet Estimate Normal Normal Normal [facility] Comment on above: Performed By: #### M G, SCAN CBC, BMP #### [address] Platelet mean volume (Bld) [Entitic vol] 9.0 fL Normal 6.3-10.7 [facility] Comment on above: Performed By: #### M G, SCAN CBC, BMP #### [address] Platelet Morphology Normal Normal Normal [facility] Comment on above: Result Comment: PERF ORMED BY: [place] [address] PATHOLOGIST CONTROLS DESIGNER SLIM SERRATO M.D. Performed By: #### M G, SCAN CBC, BMP #### [address] Platelets (Bld) [#/Vol] 237 10*3/uL Normal 150-450 [facility] Comment on above: Performed By: #### M G, SCAN CBC, BMP #### [address] RBC (Bld) [#/Vol] 4.27 10*6/uL Normal 3.60-5.00 [facility] Comment on above: Performed By: #### M G, SCAN CBC, BMP #### [address] RBC morphology finding Nom (Bld) Normal Normal [facility] Comment on above: Performed By: #### M G, SCAN CBC, BMP #### [facility] [address] [place] [address] WBC (Bld) [#/Vol] 13.2 10*3/uL High 4.5-11.0 [facility] Comment on above: Performed By: #### M G, SCAN CBC, BMP #### [address] Serum or plasma anion gap de terminationOrdered By: Eladio Mayo on 09-11-2022 Anion gap [Moles/Vol] 8.5 mmol/L 6.0-15.0 [facility] Serum or plasma calcium elias urement (mass/volume)Ordered By: Eladio Mayo on 09-11-2022 Calcium [Mass/Vol] 8.7 mg/dL 8.2-10.2 [facility] Serum or plasma chloride alisa surement (moles/volume)Ordered By: Eladio Mayo on 09-11-2022 Chloride [Moles/Vol] 106 mmol/L 95-114 [facility] Serum or plasma glucose elias urement (mass/volume)Ordered By: Eladio Mayo on 09-11-2022 Glucose [Mass/Vol] 167 mg/dL 70-100 [facility] Comment on above: ADA recommended refe rence rangeRandom Glucose Reference Range is dependent on time and content of last meal. Glucose of more than 200 mg/dL in a nonstressed, ambulatory subject supports the diagnosis of Diabetes Mellitus. Serum or plasma potassium me asurement (moles/volume)Ordered By: Eladio Mayo on 09-11-2022 Potassium [Moles/Vol] 3.9 mmol/L 3.5-5.1 [facility] Serum or plasma sodium measu rement (moles/volume)Ordered By: Eladio Mayo on 09-11-2022 Sodium [Moles/Vol] 135 mmol/L 136-146 [facility] Serum or plasma total carbon dioxide measurement (moles/volume)Ordered By: Eladio Mayo on 09-11-2022 CO2 [Moles/Vol] 24.4 mmol/L 22.0-30.0 [facility] Serum or plasma urea nitroge n measurement (mass/volume)Ordered By: Eladio Mayo on 09-11-2022 Urea nitrogen [Mass/Vol] 13 mg/dL 9-23 [facility] Activated partial thrombopla stin time (aPTT) in platelet poor plasma by coagulation aOrdered By: Gt Haro on 09-10-2022 aPTT Coag (PPP) [Time] 24.5 s 25.1-36.5 [facility] Basic Metabolic Panelon 10- Anion gap [Moles/Vol] 12.7 mmol/L Normal 6.0-15.0 [facility] Comment on above: Performed By: #### P P, BMP, CBCNO #### [facility] [address] Calcium [Mass/Vol] 9.1 mg/dL Normal 8.2-10.2 [facility] Comment on above: Performed By: #### P P, BMP, CBCNO #### [facility] [address] Chloride [Moles/Vol] 103 mmol/L Normal 95-114 [facility] Comment on above: Performed By: #### P P, BMP, CBCNO #### [facility] [address] CO2 [Moles/Vol] 24.2 mmol/L Normal 22.0-30.0 [facility] Comment on above: Performed By: #### P P, BMP, CBCNO #### [facility] [address] Creatinine [Mass/Vol] 0.71 mg/dL Normal 0.44-1.03 [facility] Comment on above: Performed By: #### P P, BMP, CBCNO #### [facility] [address] [place] [address] [place] Creatinine Clr Calc Pharmacy 140.72 [facility] Comment on above: Result Comment: PERF ORMED BY: [place] [address] PATHOLOGIST CONTROLS DESIGNER SLIM SERRATO M.D. Performed By: #### P P, BMP, CBCNO #### [address] Estimated GFR ( Cinthya > 60 Normal [facility] Comment on above: Result Comment: GFR estimated reference range: According to KDOQI guidelines, <60 ml/min/1.73m2 is sufficient to diagnose a patient with chronic kidney disease. Performed By: #### P P, BMP, CBCNO #### [facility] [address] [place] [address] Estimated GFR (Non- Am > 60 Normal [facility] Comment on above: Performed By: #### P P, BMP, CBCNO #### [address] Glucose [Mass/Vol] 120 mg/dL High 70-100 [facility] Comment on above: Result Comment: [facility] Glucose Reference Range is dependent on time and content of last meal. Glucose of more than 200 mg/dL in a nonstressed, ambulatory subject supports the diagnosis of Diabetes Mellitus. ADA recommended reference range Performed By: #### P P, BMP, CBCNO #### [address] Potassium [Moles/Vol] 3.9 mmol/L Normal 3.5-5.1 [facility] Comment on above: Performed By: #### P P, BMP, CBCNO #### [address] Sodium [Moles/Vol] 136 mmol/L Normal 136-146 [facility] Comment on above: Performed By: #### P P, BMP, CBCNO #### [address] Urea nitrogen [Mass/Vol] 13 mg/dL Normal 9-23 [facility] Comment on above: Performed By: #### P P, BMP, CBCNO #### [address] Coagulation Profileon 2021 aPTT Coag (Bld) [Time] 24.5 s Low 25.1-36.5 [facility] Comment on above: Result Comment: PERF ORMED BY: [place] [address] PATHOLOGIST CONTROLS DESIGNER SLIM SERRATO M.D. Performed By: #### P P, BMP, CBCNO #### [address] INR Coag (PPP) [Relative time] 1.1 {INR} Normal [facility] Comment on above: Result Comment: INR [...] By: #### P P, BMP, CBCNO #### [address] PT Coag (PPP) [Time] 12.2 s Normal 9.0-12.9 [facility] Comment on above: Performed By: #### P P, BMP, CBCNO #### [address] Hemogram CBC Without Diffon 09-10-2022 Erythrocyte distribution width (RBC) [Ratio] 12.4 % Normal 11.9-15.3 [facility] Comment on above: Performed By: #### P P, BMP, CBCNO #### [address] Hematocrit (Bld) [Volume fraction] 39.8 % Normal 34.0-46.4 [facility] Comment on above: Performed By: #### P P, BMP, CBCNO #### [address] Hemoglobin (Bld) [Mass/Vol] 13.3 g/dL Normal 11.8-15.4 [facility] Comment on above: Performed By: #### P P, BMP, CBCNO #### [address] MCH (RBC) [Entitic mass] 31.0 pg Normal 24.7-34.3 [facility] Comment on above: Performed By: #### P P, BMP, CBCNO #### [address] MCV (RBC) [Entitic vol] 92.9 fL Normal 80-100 [facility] Comment on above: Performed By: #### P P, BMP, CBCNO #### [address] Mean Corpuscular HGB Conc 33.4 g/dL Normal 32.0-35.0 [facility] Comment on above: Performed By: #### P P, BMP, CBCNO #### [address] Platelet mean volume (Bld) [Entitic vol] 8.9 fL Normal 6.3-10.7 [facility] Comment on above: Result Comment: PERF ORMED BY: [place] [address] PATHOLOGIST CONTROLS DESIGNER SLIM SERRATO M.D. Performed By: #### P P, BMP, CBCNO #### [address] Platelets (Bld) [#/Vol] 283 10*3/uL Normal 150-450 [facility] Comment on above: Performed By: #### P P, BMP, CBCNO #### [address] RBC (Bld) [#/Vol] 4.29 10*6/uL Normal 3.60-5.00 [facility] Comment on above: Performed By: #### P P, BMP, CBCNO #### [address] WBC (Bld) [#/Vol] 11.6 10*3/uL Normal 3.8-11.6 [facility] Comment on above: Performed By: #### P P, BMP, CBCNO #### [address] Geovani 09-10-2022 L ------ Specimen: [id number] Received: 09/10/22 Status: PATO Anglin Num: [id number] Spec Type: Surgical Subm Dr: Keron Carson MD Tissues: A Disc - Intervertebral/Lumbar/Cerv ical (ANTERIOR NECK) Procedures: HE Stain, Gross/Micro L3 Age/ Patient Sex Location Account Attending Physician Lynne Laws 36/F 4N [id number] Eladio Mayo MD SPEC NUM: [id number] RECD: 09/10/22 STATUS: PATO ANGLIN NUM: [id number] ESAU: 09/10/22 [facility] DR: Keron Carson MD ENTERED: 09/10/[address]: SPEC TYPE: Surgical DEPT: S ORDERED: HE Stain, [...] x 2 by 1 cm in aggregates. Geomagnetician sections submitted in one cassette A1. CPT Codes 00699 Specimen: [id number] Received: 09/10/22 Status: PATO Derrek Num: [id number] Spec Type: Surgical Subm Dr: Keron Carson MD Tissues: A Disc - Intervertebral/Lumbar/Cerv ical (ANTERIOR NECK) Procedures: HE Stain, Gross/Micro L3 Patient: Lynne Laws [id number] (Continued) Signed (signature on file) Tasneem Bacon MD 09/14/22 1521 Normal [facility] - CoagulationOrde red By: Gt Haro on 09-10-2022 PT Coag (PPP) [Time] 12.2 s 9.0-12.9 [facility] Platelet poor plasma interna tional normalized ratio (INR) by coagulation assay (relatOrdered By: Gt Haro on 09-10-2022 INR Coag (PPP) [Relative time] 1.1 {INR} [facility] Comment on above: INR Therapeutic Rang [...] spine 1Von 09-10 XR cervical spine 1V [facility] [place] [address] XRay Report Signed Patient: Lynne Laws MR#: [id number] : 1985 Acct:[id number] Age/Sex: 36 / F ADM Date: 09/07/22 Loc: Room: [address] [place] [address] Type: ADM IN Attending Dr: Eladio Mayo MD Copies to: MD Eladio Samaneigo MD Ordering Provider: Keron Carson MD Date of Service: 09/10/22 XR/XR cervical spine 1V: . Intraoperative study. Reason for exam: ACF C5-C7. FINDINGS: One image was obtained intraoperatively. 30 seconds of fluoroscopic time was utilized. XR/XR cervical spine 1V IMPRESSION: Intraoperative study. Impression dictated by: Bennett Delaney Jr., DMaldonadoOMaldonado09/10/2022 12:21 PM Dictation Location: [place] [address] Transcribed By: [facility] 09/10/221220 Dictated By: Bennett Delaney Jr, DO 09/10/221220 Signed By: 09/10/22 122 Normal [facility] HCG ( test) IA.bradfordi d Ql (U)Ordered By: Jayson Smith on 09-09-2022 HCG ( test) Ql (U) Negative [facility] HCG,Urineon 09-09-2022 Beta HCG ( test) Ql (U) Negative [facility] Comment on above: Order Comment: Comme nt To be completed this evening prior to OR in the AM Result Comment: PERF ORMED BY: [facility] [address] [place] [address] PATHOLOGIST CONTROLS DESIGNER SLIM SERRATO M.D. Performed By: #### U HCG #### [facility] [address] [place] [id number] [facility] Basic Metabolic Panelon 08-28 Anion gap [Moles/Vol] 15.2 mmol/L High 6.0-15.0 [facility] Comment on above: Performed By: #### M G, CBC, BMP, PP ####[facility] Xhg[address] [place] [address] [facility] Calcium [Mass/Vol] 9.2 mg/dL Normal 8.2-10.2 [facility] Comment on above: Performed By: #### M G, CBC, BMP, PP ####[facility] Dvo[address] [place] [address] [place] Chloride [Moles/Vol] 104 mmol/L Normal 95-114 [facility] Comment on above: Performed By: #### M G, CBC, BMP, PP ####[facility] Vbg[address] [place] [address] [facility] CO2 [Moles/Vol] 21.8 mmol/L Low 22.0-30.0 [facility] Comment on above: Performed By: #### M G, CBC, BMP, PP ####[facility] [place] [address] [facility] Creatinine [Mass/Vol] 0.75 mg/dL Normal 0.44-1.03 [facility] Comment on above: Performed By: #### M G, CBC, BMP, PP ####[place] [address] [place] [address] [facility] Creatinine Clr Calc Pharmacy 133.48 [facility] Comment on above: Performed By: #### M G, CBC, BMP, PP ####[place] [address] [place] [phone] [facility] Estimated GFR ( Cinthya > 60 [facility] Comment on above: Result Comment: GFR estimated reference range: According to KDOQI guidelines, <60 ml/min/1.73m2 is sufficient to diagnose a patient with chronic kidney disease. Performed By: #### M G, CBC, BMP, PP ####[place] [address] [place] [phone] [facility] Estimated GFR (Non- Am > 60 [facility] Comment on above: Performed By: #### M G, CBC, BMP, PP ####[place] [address] [place] [phone] [facility] Glucose [Mass/Vol] 155 mg/dL High 70-100 [facility] Comment on above: Result Comment: [place] Glucose Reference Range is dependent on time and content of last meal. Glucose of more than 200 mg/dL in a nonstressed, ambulatory subject supports the diagnosis of Diabetes Mellitus. ADA recommended reference range Performed By: #### M G, CBC, BMP, PP ####[place] [address] [place] [phone] [facility] Potassium [Moles/Vol] 4.0 mmol/L Normal 3.5-5.1 [facility] Comment on above: Performed By: #### M G, CBC, BMP, PP ####[place] [address] [place] [phone] [facility] Sodium [Moles/Vol] 137 mmol/L Normal 136-146 [facility] Comment on above: Performed By: #### M G, CBC, BMP, PP ####[place] [address] [place] [phone] [facility] Urea nitrogen [Mass/Vol] 10 mg/dL Normal 9-23 [facility] Comment on above: Performed By: #### Jessica G, CBC, BMP, PP ####[place] [phone] [facility] Coagulation Profileon 2021 aPTT Coag (Bld) [Time] 25.3 s Normal 25.1-36.5 [facility] Comment on above: Result Comment: PERF ORMED BY: [facility] [address] [place] [address] PATHOLOGIST CONTROLS DESIGNER SLIM SERRATO M.D. Performed By: #### M Rosas, CBC, BMP, PP ####[place] [phone] [facility] INR Coag (PPP) [Relative time] 1.0 {INR} Normal [facility] Comment on above: Result Comment: INR [...] valves: 3 - 4.5 Performed By: #### Jessica G, CBC, BMP, PP ####[place] [phone] [facility] PT Coag (PPP) [Time] 11.7 s Normal 9.0-12.9 [facility] Comment on above: Performed By: #### M Rosas, CBC, BMP, PP ####[place] [phone] [facility] Complete Blood Count Auto Di ffon 09-08-2022 Basophils (Bld) [#/Vol] 0.0 10*3/uL Normal 0.0-0.2 [facility] Comment on above: Result Comment: PERF ORMED BY: [facility] [address] PATHOLOGIST CONTROLS DESIGNER SLIM SERRATO M.D. Performed By: #### M G, CBC, BMP, PP ####[address] Basophils/100 WBC (Bld) 0.1 % Normal . [facility] Comment on above: Performed By: #### M G, CBC, BMP, PP ####[address] Eosinophils (Bld) [#/Vol] 0.0 10*3/uL Normal 0.0-0.45 [facility] Comment on above: Performed By: #### M G, CBC, BMP, PP ####[address] Eosinophils/100 WBC (Bld) 0.0 % Normal . [facility] Comment on above: Performed By: #### M G, CBC, BMP, PP ####[address] Erythrocyte distribution width (RBC) [Ratio] 12.6 % Normal 11.9-15.3 [facility] Comment on above: Performed By: #### M G, CBC, BMP, PP ####[address] Hematocrit (Bld) [Volume fraction] 39.7 % Normal 34.0-46.4 [facility] Comment on above: Performed By: #### M G, CBC, BMP, PP ####[address] Hemoglobin (Bld) [Mass/Vol] 13.1 g/dL Normal 11.8-15.4 [facility] Comment on above: Performed By: #### M G, CBC, BMP, PP ####[address] Lymphocytes (Bld) [#/Vol] 1.1 10*3/uL Normal 1.00-4.8 [facility] Comment on above: Performed By: #### M G, CBC, BMP, PP ####[address] Lymphocytes/100 WBC (Bld) 5.7 % Normal . [facility] Comment on above: Performed By: #### M G, CBC, BMP, PP ####[address] MCH (RBC) [Entitic mass] 30.4 pg Normal 24.7-34.3 [facility] Comment on above: Performed By: #### M G, CBC, BMP, PP ####[address] MCV (RBC) [Entitic vol] 92.0 fL Normal 80-100 [facility] Comment on above: Performed By: #### M G, CBC, BMP, PP ####[address] Mean Corpuscular HGB Conc 33.1 g/dL Normal 32.0-35.0 [facility] Comment on above: Performed By: #### M G, CBC, BMP, PP ####[address] Monocytes (Bld) [#/Vol] 0.4 10*3/uL Normal 0.0-0.8 [facility] Comment on above: Performed By: #### M G, CBC, BMP, PP ####[address] Monocytes/100 WBC (Bld) 2.1 % Normal . [facility] Comment on above: Performed By: #### M G, CBC, BMP, PP ####[address] Neutrophils (Bld) [#/Vol] 17.9 10*3/uL High 1.8-7.7 [facility] Comment on above: Performed By: #### M G, CBC, BMP, PP ####[place] [address] [place] Neutrophils/100 WBC (Bld) 92.1 % Normal . [facility] Comment on above: Performed By: #### M Rosas, CBC, BMP, PP ####[address] Nucleated RBC/100 WBC (Bld) [Ratio] 0.0 % Normal 0-0.5 [facility] Comment on above: Performed By: #### Jessica G, CBC, BMP, PP ####[address] Platelet mean volume (Bld) [Entitic vol] 9.3 fL Normal 6.3-10.7 [facility] Comment on above: Performed By: #### M G, CBC, BMP, PP ####[address] Platelets (Bld) [#/Vol] 254 10*3/uL Normal 150-450 [facility] Comment on above: Performed By: #### Jessica G, CBC, BMP, PP ####[address] RBC (Bld) [#/Vol] 4.31 10*6/uL Normal 3.60-5.00 [facility] Comment on above: Performed By: #### M G, CBC, BMP, PP ####[address] WBC (Bld) [#/Vol] 19.5 10*3/uL High 4.5-11.0 [facility] Comment on above: Performed By: #### M G, CBC, BMP, PP ####[address] Magnesiumon 09-08-2022 Magnesium [Mass/Vol] 2.2 mg/dL Normal 1.6-2.6 [facility] Comment on above: Result Comment: PERF ORMED BY: [facility] [address] [place] [address] PATHOLOGIST CONTROLS DESIGNER SLIM SERRATO M.D. Performed By: #### M G, CBC, BMP, PP ####[facility] [address] [place] [phone] [facility] XR cervical spine w flex/ext on 09-08-2022 XR cervical spine w flex/ext [facility] [address] [place] [address] [place] [id number] XRay Report Signed Patient: Lynne Laws MR#: [id number] : 1985 Acct:[id number] Age/Sex: 36 / F ADM Date: 09/07/22 Loc: Room: [address] [place] [address] Type: ADM IN Attending Dr: Gt Haro [...] C6-7. Impression dictated by: Bennett Delaney Jr., D.O.09/08/2022 10:46 AM Dictation Location: [place] [address] Transcribed By: [facility] 09/08/22 1046 Dictated By: Bennett Delaney Jr, DO 09/08/22 1043 Signed By: 09/08/22 1046 [facility] Coding Summaryon 11-05-2019 Coding Summary CODING DATE: 019 [facility] STATUS: Home PAYOR: Self Pay APC [...] Roy Revised Date Saved: 10/31/2019 08:13 am [facility] C Urineon 10-31-2019 C Urine No growth at 2 days. [facility] Comment on above: Performed By: #### 1 [id number], [id number], 2482310, 20836170, 3854678, [id number] #### [facility] (DEFAULT) [address] [place] [address] Coding Summaryon 10-31-2019 Coding Summary CODING DATE: 019 [facility] STATUS: Home PAYOR: Self Pay ADMIT DX: [...] Ankita Roy Date Saved: 10/31/2019 08:16 am [facility] .Auto Diff 110-29-2019 Auto Rhea % 4 % Normal 12-09 [facility] Comment on above: Performed By: #### 1 [id number], 2568341845, 3107768, 40690907, 5739068, [id number] #### [facility] (DEFAULT) [address] [place] [address] Baso Abs# 0.0 x10 Normal 0.0-0.2 [facility] Comment on above: Performed By: #### 1 [id number], 0299544812, 2353611, 90725591, 5488795, 5924988921 #### [facility] (DEFAULT) [address] [place] [address] Basophils/100 WBC (Bld) 0.1 % Low 0.2-2.0 [facility] Comment on above: Performed By: #### 1 [id number], 9038093615, 6859132, 32436301, 6784489, 1594862964 #### [facility] (DEFAULT) [address] [place] [address] Eos Abs# 0.0 x10 Normal 0.0-0.4 [facility] Comment on above: Performed By: #### 1 [id number], 2089876427, 7668275, 92031499, 7799927, 4511212291 #### [facility] (DEFAULT) [address] [place] [address] Eosinophils/100 WBC (Bld) 0.4 % Low 0.9-4.0 [facility] Comment on above: Performed By: #### 1 [id number], 4912168161, 7774178, 45615795, 9235325, 3141395093 #### [facility] (DEFAULT) [address] [place] [address] Lymphocytes (Bld) [#/Vol] 1.5 x10 Normal 1.3-2.9 [facility] Comment on above: Performed By: #### 1 [id number], 1738440656, 1099551, 22259308, 6550159, 9042958493 #### [facility] (DEFAULT) [address] [place] [address] Lymphocytes/100 WBC (Bld) 19 % Normal 14-48 [facility] Comment on above: Performed By: #### 1 [id number], 8228842611, 2991756, 17084636, 7229985, 8811797956 #### [facility] (DEFAULT) [address] [place] [address] Rhea Abs# 0.3 x10 Normal 0.0-0.8 [facility] Comment on above: Performed By: #### 1 [id number], 6596144017, 5907615, 41087306, 9262415, 2816933904 #### [facility] (DEFAULT) [address] [place] [address] Neut Abs# 5.8 x10 Normal 1.5-9.2 [facility] Comment on above: Performed By: #### 1 056638485, 2300421968, 9126713, 94183244, 8756451, 6463239526 #### [facility] (DEFAULT) [address] [place] [address] Neutrophils/100 WBC (Bld) 76 % Normal 44-88 [facility] Comment on above: Performed By: #### 1 097432472, 8100158843, 6342287, 39251173, 1535797, 3482538175 #### [facility] (DEFAULT) [address] [place] [address] Auto Rhea % 5 % Normal 1-12 [facility] Comment on above: Performed By: #### 1 [id number], 7304659211, 2615292, 95644484, 0133452, 2128390208 #### [facility] (DEFAULT) [address] [place] [address] Baso Abs# 0.0 x10 Normal 0.0-0.2 [facility] Comment on above: Performed By: #### 1 [id number], 0680154064, 7851251, 22890243, 8478592, 7129731788 #### [facility] (DEFAULT) [address] [place] [address] Basophils/100 WBC (Bld) 0.2 % Normal 0.2-2.0 [facility] Comment on above: Performed By: #### 1 [id number], 8550296567, 9045908, 39740890, 4149312, 2288272209 #### [facility] (DEFAULT) [address] [place] [address] Eos Abs# 0.0 x10 Normal 0.0-0.4 [facility] Comment on above: Performed By: #### 1 779606703, 5918204713, 0940645, 58130348, 4212144, 0273816441 #### [facility] (DEFAULT) [address] [place] [address] Eosinophils/100 WBC (Bld) 0.3 % Low 0.9-4.0 [facility] Comment on above: Performed By: #### 1 118980447, 7397050597, 8114218, 65549220, 4792908, 5799551526 #### [facility] (DEFAULT) [address] [place] [address] Lymphocytes (Bld) [#/Vol] 1.2 x10 Low 1.3-2.9 [facility] Comment on above: Performed By: #### 1 [id number], 8960391328, 2012766, 56137856, 6206906, 6009057591 #### [facility] (DEFAULT) [address] [place] [address] Lymphocytes/100 WBC (Bld) 10 % Low 14-48 [facility] Comment on above: Performed By: #### 1 826120326, 2827123641, 9902412, 34528323, 3136261, 9890839603 #### [facility] (DEFAULT) [address] [place] [address] Rhea Abs# 0.6 x10 Normal 0.0-0.8 [facility] Comment on above: Performed By: #### 1 753700109, 9996374403, 6150361, 18021149, 5391956, 8693847987 #### [facility] (DEFAULT) [address] [place] [address] Neut Abs# 9.9 x10 High 1.5-9.2 [facility] Comment on above: Performed By: #### 1 572886315, 4829557740, 1138317, 79806062, 5769244, 4770074285 #### [facility] (DEFAULT) [address] [place] [address] Neutrophils/100 WBC (Bld) 84 % Normal 44-88 [facility] Comment on above: Performed By: #### 1 746245757, 5177423446, 5937800, 10110532, 5652547, 8797661019 #### [facility] (DEFAULT) [address] [place] [address] CBC w/ Auto Diffon 9 Erythrocyte distribution width (RBC) [Ratio] 12.5 % Normal 11.5-15.0 [facility] Comment on above: Performed By: #### 1 [id number], 5129758165, 3237841, 35472206, 5565818, 8640945989 #### [facility] (DEFAULT) [address] [place] [address] Hematocrit (Bld) [Volume fraction] 35.3 % Normal 33.7-40.4 [facility] Comment on above: Performed By: #### 1 420227887, 3508407935, 7953294, 92296777, 2359073, 7885041653 #### [facility] (DEFAULT) [address] [place] [address] Hemoglobin (Bld) [Mass/Vol] 11.5 g/dL Normal 11.3-15.9 [facility] Comment on above: Performed By: #### 1 898913270, 4925708851, 1640038, 49586040, 8603205, 9853703651 #### [facility] (DEFAULT) [address] [place], [place] [address] Man Diff? Auto Normal [facility] Comment on above: Performed By: #### 1 904506451, 7548041372, 2954939, 42026411, 1637988, 4868473343 #### [facility] (DEFAULT) [address] [place] [address] 87992 MCH (RBC) [Entitic mass] 31 pg Normal 24-34 [facility] Comment on above: Performed By: #### 1 [id number], 8845271960, 0402117, 87889407, 1217735, 5234024119 #### [facility] (DEFAULT) [address] [place] [address] MCHC (RBC) [Mass/Vol] 33 g/dL Normal 26-37 [facility] Comment on above: Performed By: #### 1 705175782, 7960731147, 3217098, 78995749, 7854090, 0711460887 #### [facility] (DEFAULT) [address] [place] [address] MCV (RBC) [Entitic vol] 95 fL Normal 81-100 [facility] Comment on above: Performed By: #### 1 [id number], 6057872724, 2548112, 28751570, 1719788, 7387679967 #### [facility] (DEFAULT) [address] [place] [address] Platelet mean volume (Bld) [Entitic vol] 10.5 fL High 6.3-10.2 [facility] Comment on above: Performed By: #### 1 [id number], 7780000727, 8102814, 73537810, 7218634, 1875811031 #### [facility] (DEFAULT) [address] [place] [address] Platelets (Bld) [#/Vol] 209 x10 Normal 138-427 [facility] Comment on above: Performed By: #### 1 908821452, 5225954942, 4731545, 54435839, 5109072, 1005850232 #### [facility] (DEFAULT) [address] [place] [address] 33392 RBC (Bld) [#/Vol] 3.72 x10 Normal 3.70-5.30 [facility] Comment on above: Performed By: #### 1 375394676, 9793374690, 3316534, 53659984, 2569704, 4596149434 #### [facility] (DEFAULT) [address] [place] [address] 33059 WBC (Bld) [#/Vol] 7.6 x10 [facility] Comment on above: Performed By: #### 1 671540621, 7936947804, 2277509, 62409475, 7195099, 1493641948 #### [facility] (DEFAULT) [address] [place] [address] Erythrocyte distribution width (RBC) [Ratio] 12.4 % Normal 11.5-15.0 [facility] Comment on above: Performed By: #### 1 153030632, 0843510563, 6968832, 93120813, 3886124, 8622756876 #### [facility] (DEFAULT) [address] [place] [address] Hematocrit (Bld) [Volume fraction] 38.9 % Normal 33.7-40.4 [facility] Comment on above: Performed By: #### 1 [id number], 8897646134, 1050927, 91826132, 8212395, 6212531574 #### [facility] (DEFAULT) [address] [place] [address] Hemoglobin (Bld) [Mass/Vol] 12.9 g/dL Normal 11.3-15.9 [facility] Comment on above: Performed By: #### 1 892991433, 8873878851, 3701410, 07830793, 4238703, 6756508965 #### [facility] (DEFAULT) [address] [place] [address] Man Diff? Auto Normal [facility] Comment on above: Performed By: #### 1 209235376, 3886331919, 3305383, 81693896, 2892093, 8217803786 #### [facility] (DEFAULT) [address] [place] [address] 04649 MCH (RBC) [Entitic mass] 31 pg Normal 24-34 [facility] Comment on above: Performed By: #### 1 [id number], 4149195025, 0761854, 83088521, 1270519, 1634576299 #### [facility] (DEFAULT) [address] [place] [address] 95892 MCHC (RBC) [Mass/Vol] 33 g/dL Normal 26-37 [facility] Comment on above: Performed By: #### 1 894816256, 2003443942, 1412008, 35045005, 6454577, 2600785923 #### [facility] (DEFAULT) [address] [place] [address] 38520 MCV (RBC) [Entitic vol] 93 fL Normal 81-100 [facility] Comment on above: Performed By: #### 1 608048886, 3414186647, 6015257, 25307145, 5319422, 4333389694 #### [facility] (DEFAULT) [address] [place] [address] Platelet mean volume (Bld) [Entitic vol] 10.5 fL High 6.3-10.2 [facility] Comment on above: Performed By: #### 1 083298429, 9735794647, 1835601, 93572184, 0701656, 8330340761 #### [facility] (DEFAULT) [address] [place] [address] Platelets (Bld) [#/Vol] 208 x10 Normal 138-427 [facility] Comment on above: Performed By: #### 1 978135175, 0882806840, 7052020, 21489463, 3650578, 6968867648 #### [facility] (DEFAULT) [address] [place] [address] RBC (Bld) [#/Vol] 4.19 x10 Normal 3.70-5.30 [facility] Comment on above: Performed By: #### 1 534264102, 2350729147, 3049690, 50567251, 3700030, 4785037759 #### [facility] (DEFAULT) [address] [place] [address] 65287 WBC (Bld) [#/Vol] 11.7 x10 [facility] Comment on above: Performed By: #### 1 260356547, 0941236693, 6585609, 90958719, 6100595, 1488492510 #### [facility] (DEFAULT) [address] [place] [address] CMP Standardon 10-29-2019 eGFR Non AA >60 [facility] Comment on above: Performed By: #### 1 019293020, 0859453260, 5158349, 78705197, 3017176, 2827664329 #### [facility] (DEFAULT) [address] [place] [address] eGFR AA >60 [facility] Comment on above: Result Comment: [employer] elizabeth Kidney disease could be indicated at eGFRs of less than 60 ml/min/1.73m2. Kidney Failure is indicated at less than 15 ml/min/1.73m2 Performed By: #### 1 [id number], 3142202109, 7182195, 66304041, 3330835, 6737943667 #### [facility] (DEFAULT) [address] [place] [address] Albumin [Mass/Vol] 4.3 g/dL Normal 3.5-5.0 [facility] Comment on above: Performed By: #### 1 287865573, 2002811441, 7758541, 72190389, 6686494, 8915791558 #### [facility] (DEFAULT) [address] [place] [address] Albumin/Globulin [Mass ratio] 1.4 {ratio} Normal 1.4-2.6 [facility] Comment on above: Performed By: #### 1 354512379, 3073770572, 0825076, 41415778, 6946575, 1698394909 #### [facility] (DEFAULT) [address] [place] [address] 06248 Alk Phos 30 IU/L Low 32-91 [facility] Comment on above: Performed By: #### 1 408785629, 9864699575, 6065440, 19918126, 2153617, 0698003402 #### [facility] (DEFAULT) [address] [place] [address] ALT/SGPT 12.0 IU/L Low 14.0-54.0 [facility] Comment on above: Performed By: #### 1 838482169, 1185293888, 0320680, 30382797, 4806168, 3544084491 #### [facility] (DEFAULT) [address] [place] [address] Anion gap [Moles/Vol] 14.0 mmol/L Normal 5.0-19.0 [facility] Comment on above: Performed By: #### 1 [id number], 8198273882, 2612928, 03125587, 7128039, 3016261104 #### [facility] (DEFAULT) [address] [place] [address] 32456 AST/SGOT 15 IU/L Normal 15-41 [facility] Comment on above: Performed By: #### 1 [id number], 5274761478, 6532300, 95275300, 7093520, 5169493740 #### [facility] (DEFAULT) [address] [place] [address] 90143 Bili Total 0.8 mg/dL Normal 0.3-1.2 [facility] Comment on above: Performed By: #### 1 540845748, 4010761788, 5180450, 21978552, 2569256, 9989313159 #### [facility] (DEFAULT) [address] [place] [address] 19733 Calcium [Mass/Vol] 9.2 mg/dL Normal 8.9-10.3 [facility] Comment on above: Performed By: #### 1 [id number], [id number], 9335623, 03367515, 2748166, [id number] #### [facility] (DEFAULT) [address] [place] [address] 10908 Chloride [Moles/Vol] 108 mmol/L Normal 101-111 [facility] Comment on above: Performed By: #### 1 [id number], [id number], [id number], [id number], 5981799, [id number] #### [facility] (DEFAULT) [address] [place] [address] 15195 CO2 [Moles/Vol] 21 mmol/L Normal 21-32 [facility] Comment on above: Performed By: #### 1 [id number], [id number], 3677565, 90840941, 1977510, [id number] #### [facility] (DEFAULT) [address] [place] [address] 49771 Creatinine [Mass/Vol] 0.65 mg/dL Normal 0.60-1.30 [facility] Comment on above: Performed By: #### 1 [id number], [id number], 9831422, 36321324, 4452135, [id number] #### [facility] (DEFAULT) [address] [place] [address] 59479 Globulin (S) [Mass/Vol] 3.1 g/dL Normal 1.5-4.3 [facility] Comment on above: Performed By: #### 1 [id number], [id number], 7558264, 93238195, 3868033, [id number] #### [facility] (DEFAULT) [address] [place] [address] 50486 Glucose [Mass/Vol] 119.0 mg/dL High 74.0-118.0 [facility] Comment on above: Performed By: #### 1 [id number], [id number], 5638397, 88617829, 2533552, [id number] #### [facility] (DEFAULT) [address] [place] [address] 71153 Osmolality [Osmolality] 278 mOsm/L [facility] Comment on above: Performed By: #### 1 [id number], [id number], 1175864, 67568001, 2942508, [id number] #### [facility] [facility] (DEFAULT) [address] [place] [address] 41653 Potassium [Moles/Vol] 3.7 mmol/L Normal 3.6-5.1 [facility] Comment on above: Performed By: #### 1 [id number], [id number], 0223536, 09219728, 9903236, [id number] #### [facility] (DEFAULT) [address] [place] [address] 54200 Protein [Mass/Vol] 7.4 g/dL Normal 6.5-8.1 [facility] Comment on above: Performed By: #### 1 [id number], 1342879687, 9354250, 92074733, 6863076, 4080482901 #### [facility] (DEFAULT) [address] [place] [address] 90329 Sodium [Moles/Vol] 139.0 mmol/L Normal 136.0-144.0 [facility] Comment on above: Performed By: #### 1 [id number], 8404243727, 5903593, 36772551, 1202201, 5529154046 #### [facility] (DEFAULT) [address] [place] [address] 14901 Urea nitrogen [Mass/Vol] 11 mg/dL Normal 8-26 [facility] Comment on above: Performed By: #### 1 [id number], 6370831871, 6523650, 42468222, 5633757, 7660096458 #### [facility] (DEFAULT) [address] [place] [address] 61679 Urea nitrogen/Creatinine [Mass ratio] 17.0 mg/mg High 4.6-16.2 [facility] Comment on above: Performed By: #### 1 [id number], 3479024073, 6504474, 00097399, 6773107, 2322935295 #### [facility] (DEFAULT) [address] [place] [address] Abdomen/Pelvis w/o Contra ston 10-29-2019 CT Abdomen/Pelvis w/o Contrast EXAMINATION: CT [...] Suzanne L 10/29/19 0:46 am Technologist: MARTY [facility] ED Clinical Summaryon 2018 ED Clinical Summary [facility] - Emergency Department [address] [place] [address] ED Clinical Summary PERSON INFORMATION Name: LYNNE LAWS Age: 34 Years Sex: FEMALE : 1985 MRN: Acct#: Visit Reason: Nausea; Vomiting; ABD PAIN Arrival: 10/28/2019 23:15:38 Discharge: LOS: 000 02:51 Check In: 10/28/2019 23:15:38 Checkout:10/29/2019 02:06:01 Address: [address] [place] [address] PCP: Provider, None PROVIDER INFORMATION Provider Role [...] Patient/family/caregiver verbalizes understanding of instructions given Comment: [facility] ED Note - Physicianon 2018 ED Note - Physician Patient: EUSEBIALYNNE Age: 34 years Sex: FEMALE : 1985 [...] and Plan Diagnosis Abdominal pain in female (MRC84-VV R10.9, Discharge, Medical) Calls-Consults - Radiology: Called, [...] on: 10/29/2019 02:40 EST] Syd Davis DO [facility] ED Patient Education Noteon 10-29-2019 ED Patient Education Note Education Materials [facility] ED Patient Summaryon 019 ED Patient Summary [facility] - Emergency Department [address] [place] [address] PATIENT DISCHARGE INSTRUCTIONS Patient Information Name: LYNNE LAWS Age: 34 Years Date of : 1985 Reason For Visit: Nausea; Vomiting; ABD PAIN Arrival Time: 10/28/2019 23:15:38 Primary Care Physician: Provider, None Attending Physician: Lizbeth Trejo MD Comment: Visit Diagnosis: Diagnoses This Visit Abdominal pain in female (R10.9) Nausea ([id number]) Vomiting ([id number]) Prescription Information: If you have been given a prescription for narcotics, seek immediate medical attention if you have any difficulty breathing or any sudden status changes such as confusion and sleepiness. If you or anyone you know is experiencing suicidal thoughts, mental health, alcohol and/or drug addiction problems; contact the [facility] 20/06 Crisis Hotline -Text 4HOPE to 348122. If you received any narcotics, sedation, or [...] and treatment you received today in the [facility] Emergency Department were for an urgent problem and are not intended as complete care. It is important for you to follow up with a doctor, nurse practitioner, or physician?s hair or beauty salon assistant for ongoing care. If your symptoms become [...] so we can reach you if necessary. [facility] Emergency Department has provided you with a complete list of medications post discharge. Please inform your gizzard puller/provider of your visit and for further instruction [...] for Disease Control and Prevention July 2014 [facility] Education Noteon 10-29-2019 Education Note Education Materials [...] Follow these instructions at home: ? Take uebq-hpt-aqamupn and prescription medicines only as told by [...] 08/24/2006 Document Revised: 06/03/2017 Document Reviewed: 04/27/2017 [employer]RS[employer] Patient Education ? 2019 [employer]. Normal [facility] Extra [facility] 10-29-2019 Tube Collected Yes [facility] Comment on above: Performed By: #### 1 [id number], [id number], 8793317, 48647610, 7726196, [id number] #### [facility] (DEFAULT) [address] [place] [address] Extra [facility] 10-29-2019 Tube Collected Yes [facility] Comment on above: Performed By: #### 1 [id number], 7189338408, 2272376, 82784758, 6156728, [id number] #### [facility] (DEFAULT) [address] [place] [address] Inpatient Patient Summaryon 10-29-2019 Inpatient Patient Summary [address] [address] Patient Discharge Instructions Name: LYNNE LAWS : 1985 Patient Address: [address] [place] [address] Primary Care Provider: Name: Provider, None Phone: After you are discharged if you find you have any questions, please, call [phone] ext [phone] to speak to a nurse. Discharge Diagnosis: Abdominal pain in female Prescription Information: If you have been given a prescription for narcotics, seek immediate medical attention if you have any difficulty breathing or any sudden status changes such as confusion and sleepiness. If you or anyone you know is experiencing suicidal thoughts, mental health, alcohol and/or drug addiction problems; contact the [facility] 20/06 Crisis Hotline -Kvap 4HJGP po [phone]. If you received any narcotics, sedation, or [...] business decisions or sign any legal documents [facility] would like to thank you for allowing [...] those changes are reflected below: New Medications [id number], [address], [place] [id number], [phone] ondansetron (Zofran ODT 4 mg oral tablet, [...] Follow these instructions at home: ? Take ennv-zia-lnsxzfh and prescription medicines only as told by [...] 08/24/2006 Document Revised: 06/03/2017 Document Reviewed: 04/27/2017 TRS[employer] Patient Education ? 2019 [employer]. Viruses or Bacteria What?s got you sick? [...] Disease Control and Prevention July 2014 Normal [facility] Lipaseon 10-29-2019 Lipase Level 32.0 IU/L Normal 22.0-51.0 [facility] Comment on above: Performed By: #### 1 [id number], 9263385352, 5251754, 67238863, 3778444, 9052809292 #### [facility] (DEFAULT) [address] [place] [address] Nutrition Noteon 10-29-2019 Nutrition Note Pt admitted [...] minimum 2L/d. Will continue to monitor closely. [facility] Pharmacy Noteon 10-29-2019 Pharmacy Note I have [...] [Electronically Signed on: 10/29/2019 11:46 EST] Korina PharmD, Idania [Verified on: 10/29/2019 11:46 EST] Korina PharmD, Idania [facility] Test Urine 1on U Preg Negative [facility] Comment on above: Performed By: #### 1 [id number], 9030625865, 1426621, 97538249, 4778952, 8567276671 #### [facility] (DEFAULT) [address] [place] [address] U Preg Internal Control Pass [facility] Comment on above: Performed By: #### 1 [id number], 6319447166, 5388392, 67875812, 5690409, 9250800995 #### [facility] (DEFAULT) [address] [place] [address] Progress Note - Nurseon 0 INR Coag (Bld) [Relative time] Pt states abd pain in RLQ that feels better when pushed upon. Abd tenderness in upper midline that feels worse when palpated. Associated nausea being managed with zofran. No other issues or concerns at this time. [Electronically Signed on: 10/29/2019 11:12 EST] Jan Wylie RN [Verified on: 10/29/2019 11:12 EST] Jna Wylie RN [facility] Progress Note - Nurse Pt arrives to [...] Morrison RN [Verified on: 10/28/2019 23:27 EST] Prince LANDONLouisa [facility] Triage Panel 12on 10-29-2019 Triage Internal Control Pass [facility] Comment on above: Performed By: #### 1 [id number], 3102293891, 5949893, 35264866, 0236962, [id number] #### [facility] (DEFAULT) [address] [place] [address] U Amph Scr Negative [facility] Comment on above: Performed By: #### 1 [id number], 9808028178, 5288582, 40405984, 4477979, 2595238055 #### [facility] (DEFAULT) [address] [place], [place] [address] U Edel Scr Negative [facility] Comment on above: Performed By: #### 1 [id number], 4217103943, 3906801, 24369678, 2665875, 2141982355 #### [facility] (DEFAULT) [address] [place], [place] [address] U Benzodia Scr Negative [facility] Comment on above: Performed By: #### 1 [id number], 8871458256, 2344983, 86188060, 1442979, 1650078233 #### [facility] (DEFAULT) [address] [place] [address] 66363 U Cannab Scrn Negative [facility] Comment on above: Performed By: #### 1 [id number], 6912237043, 4648144, 57961304, 7865268, 6997380417 #### [facility] (DEFAULT) [address] [place] [address] 32304 U Cocaine Scr Negative [facility] Comment on above: Performed By: #### 1 [id number], 4130049107, 8453475, 34456526, 2488578, 6798294735 #### [facility] (DEFAULT) [address] [place] [address] 57690 U Methadone Scr Negative [facility] Comment on above: Performed By: #### 1 [id number], 4737916805, 7687204, 47398476, 2585944, 6765864680 #### [facility] (DEFAULT) [address] [place] [address] 12121 U Methamp Scrn Negative [facility] Comment on above: Performed By: #### 1 647404779, 6086037759, 0826066, 56845445, 7864334, 2821756614 #### [facility] (DEFAULT) [address] [place] [address] 07017 U Opiate Scr Negative [facility] Comment on above: Performed By: #### 1 [id number], 0220895543, 5175839, 35836516, 7285101, 9118229001 #### [facility] (DEFAULT) [address] [place] [address] 93510 U Oxycod Scr Negative [facility] Comment on above: Performed By: #### 1 919679535, 9340950916, 7998775, 63942628, 9606191, 4832248146 #### [facility] (DEFAULT) [address] [place] [address] 83899 U Phencyclidine Scr Negative [facility] Comment on above: Performed By: #### 1 [id number], 1586776734, 5271818, 25536130, 1313541, 3128464653 #### [facility] (DEFAULT) [address] [place] [address] 97715 U Propoxyphene Scr Negative Normal [facility] Comment on above: Performed By: #### 1 [id number], 8989883826, 8647683, 65899353, 6834552, 9480962512 #### [facility] (DEFAULT) [address] [place] [address] 43069 U Tricyclic Antidepress Scr Negative [facility] Comment on above: Performed By: #### 1 [id number], 8742352253, 7901038, 82984148, 7635764, 9071743203 #### [facility] (DEFAULT) [address] [place] [address] 05863 Urine Source Clean Catch [facility] Comment on above: Performed By: #### 1 [id number], 2283833865, 2450439, 51607405, 5220407, 8692465595 #### [facility] (DEFAULT) [address] [place] [address] UA Sxpww3zd 10-29-2019 RBC (U) [#/Vol] None Seen [facility] Comment on above: Order Comment: Urina lysis Microscopic order added on by [email or web address] Expert Rules system. Performed By: #### 1 [id number], 5894481899, 2669426, 50250212, 6995151, 1595501867 #### [facility] (DEFAULT) [address] [place] [address] UA Bacteria None [facility] Comment on above: Order Comment: Urina lysis Microscopic order added on by [email or web address] system. Performed By: #### 1 [id number], 6954421877, 2928886, 79263313, 8800428, 7725428326 #### [facility] (DEFAULT) [address] [place] [address] UA Hyal Cast 0-5 [facility] Comment on above: Order Comment: Urina lysis Microscopic order added on by [email or web address] system. Performed By: #### 1 [id number], 0501633841, 6209092, 00076432, 0325067, 5317724465 #### [facility] (DEFAULT) [address] [place] [address] UA Squam Epi Rare [facility] Comment on above: Order Comment: Urina lysis Microscopic order added on by [email or web address] system. Performed By: #### 1 [id number], 6296379095, 3131294, 69769614, 6995866, 3492568334 #### [facility] (DEFAULT) [address] [place] [address] UA WBC None Seen [facility] Comment on above: Order Comment: Urina lysis Microscopic order added on by [email or web address] system. Performed By: #### 1 [id number], 7761065978, 0234902, 81535645, 9326403, 7824736229 #### [facility] (DEFAULT) [address] [place] [address] 77650 UA w Culture if Ind Standard on 10-29-2019 Color (U) Yellow Normal [facility] Comment on above: Performed By: #### 1 [id number], 8782562205, 5713946, 26912997, 0297006, 4230837104 #### [facility] (DEFAULT) [address] [place] [address] Culture? Not Indicated [facility] Comment on above: Performed By: #### 1 [id number], 5737399020, 2318783, 96769498, 5779487, 3536917005 #### [facility] (DEFAULT) [address] [place] [address] 44898 Glucose (U) [Mass/Vol] Negative Normal [facility] Comment on above: Performed By: #### 1 [id number], 4067430035, 1018670, 53636363, 9529909, 4083490509 #### [facility] (DEFAULT) [address] [place] [address] 50171 Ketones Ql (U) Negative [facility] Comment on above: Performed By: #### 1 [id number], 4918955141, 4209098, 35071055, 2683781, 9615240979 #### [facility] (DEFAULT) [address] [place] [address] 43582 Micro? Indicated [facility] Comment on above: Performed By: #### 1 [id number], 0923217880, 8707701, 04194068, 6134951, 7766474768 #### [facility] (DEFAULT) [address] [place] [address] 89002 UA Bilirubin Negative [facility] Comment on above: Performed By: #### 1 [id number], 9899846448, 4580674, 71100952, 7705021, 5293171424 #### [facility] (DEFAULT) [address] [place] [address] 47621 UA Blood Negative Normal NEGATIVE [facility] Comment on above: Performed By: #### 1 343078027, 5629094790, 7571623, 41702400, 5113235, 1171205187 #### [facility] (DEFAULT) [address] [place] [address] 12245 UA Clarity CLEAR Normal CLEAR [facility] Comment on above: Performed By: #### 1 062997430, 3743566868, 2223018, 50230766, 2333977, 4520571594 #### [facility] (DEFAULT) [address] [place] [address] UA Leuk Est Negative Normal NEGATIVE [facility] Comment on above: Performed By: #### 1 115812239, 4728410379, 7399802, 17920478, 7503069, 5416888223 #### [facility] (DEFAULT) [address] [place] [address] UA Nitrite Negative Normal NEGATIVE [facility] Comment on above: Performed By: #### 1 990421481, 1209671678, 7097575, 00715551, 5371661, 6416727252 #### [facility] (DEFAULT) [address] [place] [address] UA pH 5.5 Normal 5-8 [facility] Comment on above: Performed By: #### 1 888677282, 9810240436, 7343800, 22097859, 3467167, 6654851207 #### [facility] (DEFAULT) [address] [place] [address] 42704 UA Protein TRACE Abnormal NEGATIVE [facility] Comment on above: Performed By: #### 1 776786383, 3322859756, 2163516, 51365233, 7622708, 6077787593 #### [facility] (DEFAULT) [address] [place] [address] UA Spec Grav 1.015 Normal 1.001-1.035 [facility] Comment on above: Performed By: #### 1 [id number], 7920463312, 5610818, 62998573, 2280587, 0811789606 #### [facility] (DEFAULT) [address] [place] [address] UA Urobilinogen 0.2 mg/dL Normal 0.2-1.0 [facility] Comment on above: Performed By: #### 1 990582921, 7845299631, 8856510, 44145507, 2908619, 7550210285 #### [facility] (DEFAULT) [address] [place] [address] 02291 Urine Source Clean Catch [facility] Comment on above: Performed By: #### 1 193618062, 5279390203, 8689935, 72019990, 6172519, 6325337606 #### [facility] (DEFAULT) [address] [place] [address] 24015 Breakpoint UA [facility] Comment on above: Performed By: #### 1 391086991, 1299184312, 4139709, 38104167, 4892528, 6500879778 #### [facility] (DEFAULT) [address] [place] [address] 82688 US Gallbladderon 10-29-2019 US Gallbladder Ultrasound gallbladd [...] Signature): Isabell Damon 10/29/19 8:07 am Technologist: [facility] Coding Summaryon 10-24-2019 Coding Summary CODING DATE: 019 [facility] STATUS: PAYOR: Self Pay ADMIT DX: REASON [...] result in slightly different terminology. Coded By: Jacquie Roman Date Saved: 10/24/2019 05:06 pm [facility] Coding Summary CODING DATE: 019 [facility] STATUS: Home PAYOR: Self Pay APC [...] result in slightly different terminology. Coded By: Jacquie Roman Date Saved: 10/24/2019 05:04 pm [facility] .Auto Diff 1on 10-23-2019 Auto Rhea % 6 % Normal -12 [facility] Comment on above: Performed By: #### 1 [id number], 6873949427, 3156368, 70191018, 7464884, 5248307573 #### [facility] (DEFAULT) [address] [place] [address] 03241 Baso Abs# 0.0 x10 Normal 0.0-0.2 [facility] Comment on above: Performed By: #### 1 [id number], 5013594402, 6963852, 61602755, 3117213, 9417292958 #### [facility] (DEFAULT) [address] [place] [address] 39669 Basophils/100 WBC (Bld) 0.2 % Normal 0.2-2.0 [facility] Comment on above: Performed By: #### 1 794868216, 9546024388, 5615349, 26938625, 7435213, 1425389042 #### [facility] (DEFAULT) [address] [place] [address] 20226 Eos Abs# 0.1 x10 Normal 0.0-0.4 [facility] Comment on above: Performed By: #### 1 722000648, 1215309762, 1118745, 37253696, 1122373, 4755058695 #### [facility] (DEFAULT) [address] [place] [address] 35092 Eosinophils/100 WBC (Bld) 1.8 % Normal 0.9-4.0 [facility] Comment on above: Performed By: #### 1 615222662, 4570294133, 8653244, 69419099, 7387537, 2084108500 #### [facility] (DEFAULT) [address] [place] [address] 61459 Lymphocytes (Bld) [#/Vol] 2.0 x10 Normal 1.3-2.9 [facility] Comment on above: Performed By: #### 1 742288063, 9176204573, 0506704, 56044399, 4978608, 9868529968 #### [facility] (DEFAULT) [address] [place] [address] 93411 Lymphocytes/100 WBC (Bld) 30 % Normal 14-48 [facility] Comment on above: Performed By: #### 1 095410038, 8439578049, 2205351, 25764191, 6522175, 8429365745 #### [facility] (DEFAULT) [address] [place] [address] 27941 Rhea Abs# 0.4 x10 Normal 0.0-0.8 [facility] Comment on above: Performed By: #### 1 451324481, 8262291962, 3475200, 02217627, 9075060, 2926316405 #### [facility] (DEFAULT) [address] [place] [address] Neut Abs# 4.0 x10 Normal 1.5-9.2 [facility] Comment on above: Performed By: #### 1 689566790, 0118619942, 8853714, 02400150, 8541858, 2058508470 #### [facility] (DEFAULT) [address] [place] [address] Neutrophils/100 WBC (Bld) 62 % Normal 44-88 [facility] Comment on above: Performed By: #### 1 466423880, 3628494269, 2394185, 78549090, 3390499, 8987793913 #### [facility] (DEFAULT) [address] [place] [address] CBC w/ Auto Diffon Erythrocyte distribution width (RBC) [Ratio] 12.6 % Normal 11.5-15.0 [facility] Comment on above: Performed By: #### 1 730670007, 6839656, 97298360, 0273578, 6334375025 ####[facility] (DEFAULT)[address] [place] [address] Hematocrit (Bld) [Volume fraction] 38.0 % Normal 33.7-40.4 [facility] Comment on above: Performed By: #### 1 716035225, 1227510, 99276333, 7712660, 1186853597 ####[facility] (DEFAULT)[address] [place] [address] Hemoglobin (Bld) [Mass/Vol] 12.7 g/dL Normal 11.3-15.9 [facility] Comment on above: Performed By: #### 1 503571477, 0745980, 17130278, 5440633, 4350783948 ####[facility] (DEFAULT)[address] [place] [address] Man Diff? Auto Normal [facility] Comment on above: Performed By: #### 1 126118988, 8858903, 84936018, 5856412, 9706009870 ####[facility] (DEFAULT)[address] [place] [address] MCH (RBC) [Entitic mass] 31 pg Normal 24-34 [facility] Comment on above: Performed By: #### 1 778943938, 0827713, 64188312, 8244344, 0834312199 ####[facility] (DEFAULT)[address] [place] [address] MCHC (RBC) [Mass/Vol] 33 g/dL Normal 26-37 [facility] Comment on above: Performed By: #### 1 903326773, 1594872, 55570840, 4583255, 6934361065 ####[facility] (DEFAULT)[address] [place] [address] MCV (RBC) [Entitic vol] 93 fL Normal 81-100 [facility] Comment on above: Performed By: #### 1 062507277, 3405450, 68582567, 6081927, 3611486731 ####[facility] (DEFAULT)[address] [place] [address] Platelet mean volume (Bld) [Entitic vol] 10.2 fL Normal 6.3-10.2 [facility] Comment on above: Performed By: #### 1 597786097, 0095109, 54594932, 1060177, 2606555651 ####[facility] (DEFAULT)[address] [place] [address] Platelets (Bld) [#/Vol] 231 x10 Normal 138-427 [facility] Comment on above: Performed By: #### 1 229805060, 1922610, 90580890, 0725625, 7946035917 ####[facility] (DEFAULT)[address] [place] [address] RBC (Bld) [#/Vol] 4.10 x10 Normal 3.70-5.30 [facility] Comment on above: Performed By: #### 1 611109662, 3868149, 72647661, 4529194, 5854192201 ####[facility] (DEFAULT)[address] [place] [address] 86402 WBC (Bld) [#/Vol] 6.5 x10 [facility] Comment on above: Performed By: #### 1 847015849, 9508127, 60658988, 0739595, 2955354452 ####[facility] (DEFAULT)[address] [place] [address] Standardon 10-23-2019 eGFR Non AA >60 [facility] Comment on above: Performed By: #### 1 245510819, 7503429368, 2243044, 96948363, 4447531, 0094026722 #### [facility] (DEFAULT) [address] [place] [address] eGFR AA >60 [facility] Comment on above: Result Comment: Airport Operations Manager elizabeth Kidney disease could be indicated at eGFRs of less than 60 ml/min/1.73m2. Kidney Failure is indicated at less than 15 ml/min/1.73m2 Performed By: #### 1 [id number], 6434919887, 8724693, 56479648, 4399071, 3655915957 #### [facility] (DEFAULT) [address] [place] [address] Albumin [Mass/Vol] 4.4 g/dL Normal 3.5-5.0 [facility] Comment on above: Performed By: #### 1 712117850, 1227931016, 6207525, 20391199, 9191787, 8535796921 #### [facility] (DEFAULT) [address] [place], [place] [address] Albumin/Globulin [Mass ratio] 1.4 {ratio} Normal 1.4-2.6 [facility] Comment on above: Performed By: #### 1 375830774, 5765664058, 2449436, 66339308, 6427414, 8284997134 #### [facility] (DEFAULT) [address] [place], [place] [address] Alk Phos 34 IU/L Normal 32-91 [facility] Comment on above: Performed By: #### 1 715835437, 6915570392, 3790085, 46528476, 1499693, 9695229501 #### [facility] (DEFAULT) [address] [place] [address] ALT/SGPT 12.0 IU/L Low 14.0-54.0 [facility] Comment on above: Performed By: #### 1 926279796, 1539340320, 2244017, 35259696, 4322778, 1855824897 #### [facility] (DEFAULT) [address] [place] [address] Anion gap [Moles/Vol] 16.0 mmol/L Normal 5.0-19.0 [facility] Comment on above: Performed By: #### 1 [id number], [id number], 3797791, 42223558, 2778386, [id number] #### [facility] (DEFAULT) [address] [place] [address] AST/SGOT 15 IU/L Normal 15-41 [facility] Comment on above: Performed By: #### 1 [id number], 7902834341, 2383295, 12338718, 3145900, 3509620227 #### [facility] (DEFAULT) [address] [place] [address] Bili Total 0.3 mg/dL Normal 0.3-1.2 [facility] Comment on above: Performed By: #### 1 [id number], 8865299968, 2744905, 70596068, 7140353, 0845332786 #### [facility] (DEFAULT) [address] [place] [address] Calcium [Mass/Vol] 9.3 mg/dL Normal 8.9-10.3 [facility] Comment on above: Performed By: #### 1 [id number], 9683133453, 1172617, 43271200, 1284213, 8400336573 #### [facility] (DEFAULT) [address] [place] [address] Chloride [Moles/Vol] 107 mmol/L Normal 101-111 [facility] Comment on above: Performed By: #### 1 [id number], 7921715928, 2298344, 19096039, 5404034, 4852993689 #### [facility] (DEFAULT) [address] [place] [address] CO2 [Moles/Vol] 23 mmol/L Normal 21-32 [facility] Comment on above: Performed By: #### 1 210970086, 3440365282, 3796304, 56005001, 9438584, 0060689228 #### [facility] (DEFAULT) [address] [place] [address] Creatinine [Mass/Vol] 0.62 mg/dL Normal 0.60-1.30 [facility] Comment on above: Performed By: #### 1 [id number], 8826569238, 6098227, 96285938, 8361613, 9258411377 #### [facility] (DEFAULT) [address] [place] [address] Globulin (S) [Mass/Vol] 3.1 g/dL Normal 1.5-4.3 [facility] Comment on above: Performed By: #### 1 397096574, 2094838845, 4768560, 55383537, 4213305, 4753340585 #### [facility] (DEFAULT) [address] [place] [address] Glucose [Mass/Vol] 101.0 mg/dL Normal 74.0-118.0 [facility] Comment on above: Performed By: #### 1 [id number], 0488574187, 2063859, 61030342, 7903425, 1930966985 #### [facility] (DEFAULT) [address] [place] [address] 18872 Osmolality [Osmolality] 283 mOsm/L [facility] Comment on above: Performed By: #### 1 [id number], 7569630421, 7870379, 18812601, 7682336, 5880540481 #### [facility] (DEFAULT) [address] [place] [address] Potassium [Moles/Vol] 3.5 mmol/L Low 3.6-5.1 [facility] Comment on above: Performed By: #### 1 593317337, 2894094059, 3566548, 73683890, 7938976, 3235385812 #### [facility] (DEFAULT) [address] [place] [address] 34803 Protein [Mass/Vol] 7.5 g/dL Normal 6.5-8.1 [facility] Comment on above: Performed By: #### 1 515658259, 8145110306, 5164174, 09692968, 2372752, 2645610697 #### [facility] (DEFAULT) [address] [place] [address] 04533 Sodium [Moles/Vol] 142.0 mmol/L Normal 136.0-144.0 [facility] Comment on above: Performed By: #### 1 [id number], 7713382912, 4779455, 95271164, 4499526, 5610467036 #### [facility] (DEFAULT) [address] [place] [address] 13598 Urea nitrogen [Mass/Vol] 11 mg/dL Normal 8- [facility] Comment on above: Performed By: #### 1 429391789, 1468633164, 2893816, 10747392, 4424741, 6520270398 #### [facility] (DEFAULT) [address] [place] [address] 01576 Urea nitrogen/Creatinine [Mass ratio] 18.0 mg/mg High 4.6-16.2 [facility] Comment on above: Performed By: #### 1 [id number], 1134695656, 3261732, 88146192, 8036854, 8971128007 #### [facility] (DEFAULT) [address] [place] [address] Abdomen/Pelvis w/o Contra ston 10-23-2019 CT [...] Tristen Heard DO 10/23/19 8:20 pm Technologist: DK, Normal [facility] ED Clinical Summaryon 2018 ED Clinical Summary [facility] - Emergency Department [address] [place], [place] [id number] ED Clinical Summary PERSON INFORMATION Name: LYNNE LAWS Age: 34 Years Sex: FEMALE : 1985 MRN: Acct#: Visit Reason: Nausea; Flank pain; VOMITING, RIGHT FLANK PAIN Arrival: 10/23/2019 17:36:59 Discharge: 10/23/2019 20:09:00 LOS: 000 02:33 Check In: 10/23/2019 17:36:59 Checkout:10/23/2019 20:09:00 Address: [address] [place] [address] PCP: Provider, None PROVIDER INFORMATION Provider Role [...] ENT: -pharynx pink and moist. NECK: -Supple (ujeg-dc-nrrxx): non-tender. CARD: -Rate and rhythm: Regular -Edema: [...] % Auto Lymph % 30 % Auto Rhea % 6 % Auto Eos % 1.8 % Auto Baso % 0.2 % Neut Abs# 4.0 x103/mcL Lymph Abs# 2.0 x103/mcL Rhea Abs# 0.4 x103/mcL Eos Abs# 0.1 x103/mcL Baso Abs# 0.0 x103/mcL Tube Collected Yes . Impression and Plan Diagnosis Right flank pain ([id number] R10.9, Discharge, Medical) Plan Condition: Improved, Stable. [...] 3 to 5 days Urologist; Isidra Baig [phone] EXT: [phone] Call for family Physician Within 3 to 5 days Call to become established with primary care provider. Counseled: Patient, Regarding diagnosis, Regarding diagnostic results, Regarding treatment plan, Patient indicated understanding of instructions. DISCHARGE INFORMATION: Discharge Disposition: Home Discharge Location: Home PATIENT EDUCATION INFORMATION Instructions: Renal Colic; Flank Pain, Adult; Abdominal Pain, Adult Follow-Up: With: Address: When: Dion Jaime [facility], [id number] [place] [address] [place] [address] [phone] Business (1) Within 2 to 4 days [...] or weakness. With: Address: When: Woody Diaz [address] [place] [address], [address] [place] [address] Business (1) Within 3 to 5 days Comments: Urologist With: Address: When: Isidra Baig [phone] EXT: [phone] Call for family Physician Within 3 to 5 days Comments: Call to become established with primary care provider DIAGNOSIS: Right flank pain Patient Understands: Yes - Patient/family/caregiver verbalizes understanding of instructions given Comment: [facility] ED Note - Physicianon 2018 [...] ENT: -pharynx pink and moist. NECK: -Supple (oyrj-oc-msqrg): non-tender. CARD: -Rate and rhythm: Regular -Edema: [...] % Auto Lymph % 30 % Auto Rhea % 6 % Auto Eos % 1.8 % Auto Baso % 0.2 % Neut Abs# 4.0 x103/mcL Lymph Abs# 2.0 x103/mcL Rhea Abs# 0.4 x103/mcL Eos Abs# 0.1 x103/mcL Baso Abs# 0.0 x103/mcL Tube Collected Yes . Impression and Plan Diagnosis Right flank pain ([id number] R10.9, Discharge, Medical) Plan Condition: Improved, Stable. [...] 3 to 5 days Urologist; Isidra Baig [phone] EXT: [phone] Call for family Physician Within 3 to 5 days Call to become established with primary care provider. Counseled: Patient, Regarding diagnosis, Regarding diagnostic results, Regarding treatment plan, Patient indicated understanding of instructions. [Electronically Signed on: 10/23/2019 19:52 EST] SERG LOCKE [Verified on: 10/23/2019 19:52 EST] SERG LOCKE [facility] ED Note-Nursingon 10-23-2019 ED Note-Nursing Pt presents [...] Pt walked to room 7 without assistance. [facility] ED Patient Education Noteon 10-23-2019 ED Patient [...] Follow these instructions at home: ? Take xbod-qgv-ouzyiuv and prescription medicines only as told by [...] 08/24/2006 Document Revised: 06/03/2017 Document Reviewed: 04/27/2017 [employer] Patient Education ? 2019 [employer] Urology Renal Colic Renal colic is pain [...] provider if it is okay to take hysq-spc-jmlhgzx pain medicine. ? Drink enough fluid to [...] 08/24/2006 Document Revised: 04/19/2017 Document Reviewed: 09/24/2015 [employer] Patient Education ? 2019 [employer]. Flank Pain, Adult Flank pain is pain [...] by your health care provider. ? Take ajsy-ddp-tapkcly and prescription medicines only as told by [...] 01/05/2007 Document Revised: 01/27/2018 Document Reviewed: 01/27/2018 [employer] Patient Education ? 2019 [employer]. Normal [facility] ED Patient Summaryon 019 ED Patient Summary [facility] - Emergency Department [address] [place] [address] PATIENT DISCHARGE INSTRUCTIONS Patient Information Name: LYNNE LAWS Age: 34 Years Date of : 1985 Reason For Visit: Nausea; Flank pain; VOMITING, RIGHT FLANK PAIN Arrival Time: 10/23/2019 17:36:59 Primary Care Physician: Provider, None Attending Physician: Boo Johnson MD Comment: Visit Diagnosis: Diagnoses This Visit Flank pain ([id number]) Nausea ([id number]) Right flank pain (R10.9) Prescription Information: If you have been given a prescription for narcotics, seek immediate medical attention if you have any difficulty breathing or any sudden status changes such as confusion and sleepiness. If you or anyone you know is experiencing suicidal thoughts, mental health, alcohol and/or drug addiction problems; contact the [facility] 20/06 Crisis Hotline -Text 4HOPE to 293145. If you received any narcotics, sedation, or [...] any legal documents With: Address: When: Dion Son [facility], [address] [place] [address] [place] [id number] Business (1) Within 2 to 4 days [...] or weakness. With: Address: When: Woody Diaz [address] [place] [address], [address] [place] [address] Business (1) Within 3 to 5 days Comments: Urologist With: Address: When: Isidra Baig [phone] EXT: [phone] Call for family Physician Within 3 to 5 days Comments: Call to become established with primary care provider Medication Information: The exam and treatment you received today in the [facility] Emergency Department were for an urgent problem and are not intended as complete care. It is important for you to follow up with a doctor, nurse practitioner, or physician?s hair or beauty salon assistant for ongoing care. If your symptoms become [...] so we can reach you if necessary. [facility] Emergency [facility] has provided you with a complete list of medications post discharge. Please inform your gizzard puller/provider of your visit and for further instruction [...] 1 cap(s) Oral every day. [facility]: [facility]. [facility] (work note) Please excuse from work [...] provider if it is okay to take eorb-gqw-yadcgrf pain medicine. ? Drink enough fluid to [...] 08/24/2006 Document Revised: 04/19/2017 Document Reviewed: 09/24/2015 [employer] Patient Education ? 2019 [employer] Flank Pain, Adult Flank pain is pain [...] by your health care provider. ? Take dvlj-uox-tbfsyyd and prescription medicines only as told by [...] 01/05/2007 Document Revised: 01/27/2018 Document Reviewed: 01/27/2018 [employer] Patient Education ? 2019 [employer] Abdominal Pain, Adult Abdominal pain can [...] Follow these instructions at home: ? Take uiyf-pjo-gbheukg and prescription medicines only as told by [...] 08/24/2006 Document Revised: 06/03/2017 Document Reviewed: 04/27/2017 [employer] Patient Education ? 2019 [employer]. Viruses or Bacteria What?s got you sick? [...] Disease Control and Prevention July 2014 Normal [facility] Extra Blueon 10-23-2019 Tube Collected Yes [facility] Comment on above: Performed By: #### 1 [id number], 6207759, 81133856, 8904558, 8033708938 ####[facility] (DEFAULT)[address] [place] [address] 83014 Lactic Acidon 10-23-2019 Lactate [Moles/Vol] 6.5 mg/dL Normal 4.5-19.8 [facility] Comment on above: Performed By: #### 1 [id number], 2912452112, 7846203, 50707179, 4852363, 3335636430 #### [facility] (DEFAULT) [address] [place] [address] 87565 Lipaseon 10-23-2019 Lipase Level 48.0 IU/L Normal 22.0-51.0 [facility] Comment on above: Performed By: #### 1 [id number], 0453468673, 9017022, 79455735, 0490232, 1815471028 #### [facility] (DEFAULT) [address] [place] [address] 14183 Test Serum 1on Preg Serum Internal Control OK [facility] Comment on above: Performed By: #### 1 380239854, 0253242331, 3550086, 62324189, 4188427, 3198816447 #### [facility] (DEFAULT) [address] [place] [address] 21129 Test Serum Qual Negative [facility] Comment on above: Performed By: #### 1 [id number], 8523957836, 1613914, 13059717, 0350786, 2712261874 #### [facility] (DEFAULT) [address] [place] [address] 70394 UA w Culture if Ind Standard on 10-23-2019 Breakpoint UA [facility] Comment on above: Performed By: #### 1 568323857, 7329798204, 8102281, 96355235, 7826833, 4496958908 #### [facility] (DEFAULT) [address] [place] [address] 84367 Color (U) Yellow [facility] Comment on above: Performed By: #### 1 204573745, 2273422760, 8009930, 52602171, 6649137, 1717619508 #### [facility] (DEFAULT) [address] [place] [address] 35193 Culture? No [facility] Comment on above: Performed By: #### 1 607031916, 7012549040, 8739515, 36787291, 7088873, 5255025982 #### [facility] (DEFAULT) [address] [place] [address] 73496 Glucose (U) [Mass/Vol] Negative [facility] Comment on above: Performed By: #### 1 [id number], 5744995194, 7540110, 61255300, 2372472, 9117845026 #### [facility] (DEFAULT) [address] [place] [address] 10707 Ketones Ql (U) Negative [facility] Comment on above: Performed By: #### 1 941555526, 9326579674, 2193670, 42092999, 9244276, 2512034352 #### [facility] (DEFAULT) [address] [place] [address] 94719 Micro? Not Indicated [facility] Comment on above: Performed By: #### 1 924015538, 4738699543, 8770340, 56769380, 4185658, 4220264252 #### [facility] (DEFAULT) [address] [place] [address] 81752 UA Bilirubin Negative [facility] Comment on above: Performed By: #### 1 918980145, 8194007851, 7871883, 96495195, 9616269, 9422125541 #### [facility] (DEFAULT) [address] [place] [address] 98752 UA Blood Negative Normal NEGATIVE [facility] Comment on above: Performed By: #### 1 120741568, 7992375291, 1865605, 06100444, 9940501, 6811992050 #### [facility] (DEFAULT) [address] [place] [address] 11694 UA Clarity CLEAR Normal CLEAR [facility] Comment on above: Performed By: #### 1 746969593, 3396313040, 9593679, 26688626, 2295966, 9077720345 #### [facility] (DEFAULT) [address] [place] [address] 17041 UA Leuk Est Negative Normal NEGATIVE [facility] Comment on above: Performed By: #### 1 546092365, 9089555581, 4676126, 31793921, 1722823, 0194463398 #### [facility] (DEFAULT) [address] [place] [address] 19592 UA Nitrite Negative Normal NEGATIVE [facility] Comment on above: Performed By: #### 1 554734557, 6847626429, 7512949, 03936059, 8662736, 9303593451 #### [facility] (DEFAULT) [address] [place] [address] 41013 UA pH 5.5 Normal 5-8 [facility] Comment on above: Performed By: #### 1 506690242, 9624447215, 9825131, 52198614, 0161137, 5943722194 #### [facility] (DEFAULT) [address] [place] [address] 79863 UA Protein Negative Normal NEGATIVE [facility] Comment on above: Performed By: #### 1 174062262, 1119427833, 0266125, 05591823, 6536249, 4062148989 #### [facility] (DEFAULT) [address] [place] [address] 49620 UA Spec Grav 1.020 Normal 1.001-1.035 [facility] Comment on above: Performed By: #### 1 355187599, 2628226350, 2130605, 71933329, 8629952, 6570456169 #### [facility] (DEFAULT) [address] [place] [address] UA Urobilinogen 0.2 mg/dL Normal 0.2-1.0 [facility] Comment on above: Performed By: #### 1 389006931, 0725817616, 7996974, 35202805, 5396582, 4661653859 #### [facility] (DEFAULT) [address] [place] [address] 46819 Urine Source Clean Catch [facility] Comment on above: Performed By: #### 1 880104107, 9068053622, 0330355, 72132067, 0528831, 7644057658 #### [facility] (DEFAULT) [address] [place] [address] Coding Summaryon 12-13-2018 Coding Summary CODING DATE: [facility] STATUS: Home PAYOR: Self Pay ADMIT DX: [...] Ankita Roy Date Saved: 12/13/2018 01:35 pm [facility] Coding Summary CODING DATE: [facility] STATUS: Home PAYOR: Self Pay ADMIT DX: [...] Ankita Roy Date Saved: 12/13/2018 01:33 pm [facility] .Auto Diff 1on 12-11-2018 Auto Rhea % 7 % Normal 12-09 [facility] Comment on above: Performed By: #### 1 [id number], 9571274810, 3939065, 54798706, 9477576, 9626987677 #### [facility] (DEFAULT) [address] [place] [address] 79816 Baso Abs# 0.0 x10 Normal 0.0-0.2 [facility] Comment on above: Performed By: #### 1 311872676, 4139981993, 4843741, 48476755, 7324446, 1015693572 #### [facility] (DEFAULT) [address] [place] [address] 35945 Basophils/100 WBC (Bld) 0.3 % Normal 0.2-2.0 [facility] Comment on above: Performed By: #### 1 722793698, 9807072288, 3175027, 17214079, 7733144, 3828398120 #### [facility] (DEFAULT) [address] [place] [address] 60898 Eos Abs# 0.1 x10 Normal 0.0-0.4 [facility] Comment on above: Performed By: #### 1 558288398, 7255659155, 2960618, 55032078, 7966637, 1845006110 #### [facility] (DEFAULT) [address] [place] [address] 42320 Eosinophils/100 WBC (Bld) 1.5 % Normal 0.9-4.0 [facility] Comment on above: Performed By: #### 1 034428671, 8665861747, 9124277, 61934419, 2445427, 3119036097 #### [facility] (DEFAULT) [address] [place] [address] 95260 Lymphocytes (Bld) [#/Vol] 2.1 x10 Normal 1.3-2.9 [facility] Comment on above: Performed By: #### 1 262862813, 4531912568, 0115176, 86132159, 3829673, 1052279155 #### [facility] (DEFAULT) [address] [place] [address] 94280 Lymphocytes/100 WBC (Bld) 29 % Normal 14-48 [facility] Comment on above: Performed By: #### 1 452872838, 9065200056, 8331806, 90967644, 3802396, 7099130147 #### [facility] (DEFAULT) [address] [place] [address] Rhea Abs# 0.5 x10 Normal 0.0-0.8 [facility] Comment on above: Performed By: #### 1 463810031, 3434283731, 5086092, 33926629, 3313523, 3287665108 #### [facility] (DEFAULT) [address] [place] [address] Neut Abs# 4.6 x10 Normal 1.5-9.2 [facility] Comment on above: Performed By: #### 1 717887521, 5937585283, 3745283, 10524032, 1140496, 1356569967 #### [facility] (DEFAULT) [address] [place] [address] Neutrophils/100 WBC (Bld) 63 % Normal 44-88 [facility] Comment on above: Performed By: #### 1 626385413, 7635722411, 8019605, 40986428, 6641897, 4778559660 #### [facility] (DEFAULT) [address] [place] [address] CBC w/ Auto Diffon 9 Erythrocyte distribution width (RBC) [Ratio] 13.1 % Normal 11.5-15.0 [facility] Comment on above: Performed By: #### 1 222917806, 8853953642, 6961615, 12571655, 3268451, 4198103490 #### [facility] (DEFAULT) [address] [place] [address] Hematocrit (Bld) [Volume fraction] 37.8 % Normal 33.7-40.4 [facility] Comment on above: Performed By: #### 1 090477606, 3117387807, 3710948, 23741179, 7086681, 0138019167 #### [facility] (DEFAULT) [address] [place] [address] Hemoglobin (Bld) [Mass/Vol] 12.6 g/dL Normal 11.3-15.9 [facility] Comment on above: Performed By: #### 1 061514519, 4513725419, 2124472, 94065854, 6720956, 7773246624 #### [facility] (DEFAULT) [address] [place] [address] Man Diff? Auto Normal [facility] Comment on above: Performed By: #### 1 114952126, 5905022987, 8281531, 00241653, 0481625, 5549907609 #### [facility] (DEFAULT) [address] [place] [address] MCH (RBC) [Entitic mass] 30 pg Normal 24-34 [facility] Comment on above: Performed By: #### 1 965785906, 3551001671, 3999994, 21604175, 6729390, 6845073658 #### [facility] (DEFAULT) [address] [place] [address] MCHC (RBC) [Mass/Vol] 33 g/dL Normal 26-37 [facility] Comment on above: Performed By: #### 1 652292024, 4254343652, 3702606, 17828006, 9101382, 9798871540 #### [facility] (DEFAULT) [address] [place] [address] MCV (RBC) [Entitic vol] 90 fL Normal 81-100 [facility] Comment on above: Performed By: #### 1 658511157, 9333646988, 4231155, 68681094, 1288071, 1187130653 #### [facility] (DEFAULT) [address] [place] [address] Platelet mean volume (Bld) [Entitic vol] 11.6 fL High 6.3-10.2 [facility] Comment on above: Performed By: #### 1 286231468, 7564095652, 7931885, 01817074, 7645735, 7874397446 #### [facility] (DEFAULT) [address] [place] [address] Platelets (Bld) [#/Vol] 117 x10 Low 138-427 [facility] Comment on above: Performed By: #### 1 435953794, 7137760706, 3103293, 41811675, 1522787, 7930929737 #### [facility] (DEFAULT) [address] [place] [address] RBC (Bld) [#/Vol] 4.21 x10 Normal 3.70-5.30 [facility] Comment on above: Performed By: #### 1 056977175, 7087014332, 7768303, 56789228, 5447277, 4547741382 #### [facility] (DEFAULT) [address] [place] [address] WBC (Bld) [#/Vol] 7.3 x10 [facility] Comment on above: Performed By: #### 1 448200102, 3651452915, 0108060, 52580878, 4622032, 8246107413 #### [facility] (DEFAULT) [address] [place] [address] Standardon 12-11-2018 eGFR Non AA >60 [facility] Comment on above: Performed By: #### 1 927052644, 8321181459, 3159077, 81447684, 2996510, 5526769973 #### [facility] (DEFAULT) [address] [place] [address] eGFR AA >60 [facility] Comment on above: Result Comment: Airport Operations Manager elizabeth Kidney disease could be indicated at eGFRs of less than 60 ml/min/1.73m2. Kidney Failure is indicated at less than 15 ml/min/1.73m2 Performed By: #### 1 [id number], 5390522952, 8548525, 78687956, 8747588, 4171528009 #### [facility] (DEFAULT) [address] [place] [address] Albumin [Mass/Vol] 4.1 g/dL Normal 3.5-5.0 [facility] Comment on above: Performed By: #### 1 008072557, 8374266697, 3692688, 15722919, 1509239, 6005526171 #### [facility] (DEFAULT) [address] [place] [address] 05616 Albumin/Globulin [Mass ratio] 1.3 {ratio} Low 1.4-2.6 [facility] Comment on above: Performed By: #### 1 106801646, 3742748779, 5764397, 87452054, 4920271, 5515309611 #### [facility] (DEFAULT) [address] [place] [address] 17684 Alk Phos 35 IU/L Normal 32-91 [facility] Comment on above: Performed By: #### 1 020440769, 4236957673, 8852096, 87277060, 4430231, 8261237537 #### [facility] (DEFAULT) [address] [place] [address] 03539 ALT/SGPT 11.0 IU/L Low 14.0-54.0 [facility] Comment on above: Performed By: #### 1 289112093, 6255853631, 9343061, 45099859, 1495593, 2319086744 #### [facility] (DEFAULT) [address] [place] [address] 15265 Anion gap [Moles/Vol] 14.0 mmol/L Normal 5.0-19.0 [facility] Comment on above: Performed By: #### 1 269041184, 3715780545, 3194417, 79673882, 6038449, 5223194056 #### [facility] (DEFAULT) [address] [place] [address] 41635 AST/SGOT 18 IU/L Normal 15-41 [facility] Comment on above: Performed By: #### 1 [id number], [id number], [id number], [id number], [id number] #### [facility] (DEFAULT) [address] [place] [address] Bili Total 0.3 mg/dL Normal 0.3-1.2 [facility] Comment on above: Performed By: #### 1 [id number], [id number], [id number], [id number], [id number] #### [facility] (DEFAULT) [address] [place] [id number] Calcium [Mass/Vol] 9.6 mg/dL Normal 8.9-10.3 [facility] Comment on above: Performed By: #### 1 [id number], [id number], [id number], [id number], [id number], [id number] #### [facility] [facility] [address] [place] [address] 53968 Chloride [Moles/Vol] 106 mmol/L Normal 101-111 [facility] Comment on above: Performed By: #### 1 [id number], [id number], [id number], [id number], [id number], [id number] #### [facility] (DEFAULT) [address] [place] [address] 72029 CO2 [Moles/Vol] 21 mmol/L Normal 21-32 [facility] Comment on above: Performed By: #### 1 [id number], [id number], [id number], [id number], [id number], [id number] #### [facility] (DEFAULT) [address] [place] [address] 41060 Creatinine [Mass/Vol] 0.68 mg/dL Normal 0.60-1.30 [facility] Comment on above: Performed By: #### 1 [id number], [id number], [id number], [id number], [id number], [id number] #### [facility] (DEFAULT) [address] [place] [address] 15320 Globulin (S) [Mass/Vol] 3.1 g/dL Normal 1.5-4.3 [facility] Comment on above: Performed By: #### 1 [id number], [id number], [id number], [id number], [id number], [id number] #### [facility] (DEFAULT) [address] [place] [address] 05998 Glucose [Mass/Vol] 88.0 mg/dL Normal 74.0-118.0 [facility] Comment on above: Performed By: #### 1 [id number], [id number], [id number], 23094533, [id number], [id number] #### [facility] (DEFAULT) [address] [place] [address] 03618 Osmolality [Osmolality] 272 mOsm/L [facility] Comment on above: Performed By: #### 1 [id number], [id number], [id number], [id number], 3907952, [id number] #### [facility] (DEFAULT) [address] [place] [address] 45497 Potassium [Moles/Vol] 3.5 mmol/L Low 3.6-5.1 [facility] Comment on above: Performed By: #### 1 [id number], [id number], 0874598, 65670697, [id number], [id number] #### [facility] (DEFAULT) [address] [place] [address] 23610 Protein [Mass/Vol] 7.2 g/dL Normal 6.5-8.1 [facility] Comment on above: Performed By: #### 1 [id number], [id number], 2457429, 02045732, [id number], [id number] #### [facility] (DEFAULT) [address] [place] [address] 91581 Sodium [Moles/Vol] 137.0 mmol/L Normal 136.0-144.0 [facility] Comment on above: Performed By: #### 1 [id number], [id number], [id number], 84396772, 0802996, [id number] #### [facility] (DEFAULT) [address] [place] [address] 31393 Urea nitrogen [Mass/Vol] 10 mg/dL Normal 8-26 [facility] Comment on above: Performed By: #### 1 [id number], [id number], 7869758, 35453203, 9684883, [id number] #### [facility] (DEFAULT) [address] [place] [address] 52200 Urea nitrogen/Creatinine [Mass ratio] 15.0 mg/mg Normal 4.6-16.2 [facility] Comment on above: Performed By: #### 1 [id number], [id number], 9400491, 26305961, 0884772, [id number] #### [facility] (DEFAULT) [address] [place] [address] ED Clinical Summaryon 2018 ED Clinical Summary [facility] - Emergency Department [address] [place], [place] [id number] ED Clinical Summary PERSON INFORMATION Name: LYNNE LAWS Age: 33 Years Sex: FEMALE : [birth year] MRN: Acct#: Visit Reason: Abdominal pain; ABD PAIN Arrival: 12/11/18 16:56:00 Discharge: 12/11/18 19:08:00 LOS: 000 02:12 Check In: 12/11/18 16:56:00 Checkout:12/11/18 19:08:00 Address: [address] [place] [address] PCP: Provider, None PROVIDER INFORMATION Provider Role [...] longer taking Zantac. Patient states she takes omrq-uht-odcuupd Tums as needed. Patient denies any fever, chills. She denies any nausea vomiting diarrhea black or tarry stools or blood in the stool. 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 She should call [...] Impression and Plan Diagnosis Epigastric abdominal pain (BRC56-CX R10.13, Discharge, Medical) GERD (gastroesophageal reflux disease) (EDR26-TV K21.9, Discharge, Medical) Plan Condition: Stable. Disposition: [...] provided with information for primary care physician: [facility], , Address: [address] [place] [address]. Please call to schedule a follow up [...] epigastric abdominal discomfort. 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 Patient denied any chest pain or shortness of breath. Following medications patient had improved patient given prescription for omeprazole once daily and Pepcid twice daily for her history of gastric ulcer. Also given information to follow Dr. York in [place] patient states she is from [facility] as well as Dr. Jeffery, or Dr. [...] Follow-Up: With: Address: When: Johnny Sarmiento [address] [place], [place] [id number] Business (1) Within 3 to 5 days With: Address: When: Remy Jeffery [address] [facility], [address] [place] [address] Business (1) Within 3 to 5 days With: Address: When: ISABELL LOPEZEMANUEL [address] [place], [place] [id number] Business (1) Within 3 to 5 days With: Address: When: Follow up with primary care provider Within 3 to 5 days Comments: You are provided with information for primary care physician: [facility], , Address: [address] [place], [place]. Please call to schedule a follow up [...] Patient/family/caregiver verbalizes understanding of instructions given Comment: [facility] ED Note - Physicianon 2018 ED Note - Physician Patient: LYNNE LAWS IKERCHIP Patterson MRN: [id number] Age: 33 years Sex: FEMALE : [birth year] Associated Diagnoses: Epigastric abdominal pain; GERD (gastroesophageal reflux disease) Author: Jacobo SPENCE, Jerrell Lopez Basic Information Time seen: Date & time [...] longer taking Zantac. Patient states she takes hlvh-ngh-pfowstw Tums as needed. Patient denies any fever, chills. She denies any nausea vomiting diarrhea black or tarry stools or blood in the stool. 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 [...] mL inhalation solution: 3 mL, NEB, Once [place] 5 mg-325 mg oral tablet: 1 tab(s), PO, Once SOLU-Medrol: 125 mg, 2 mL, IM, Once Toradol: 30 mg, 1 mL, IM, Once predniSONE: 50 mg, 1 tab(s), PO, Once Prescriptions Completed [place] 5 mg-325 mg oral tablet: 1 tab(s), [...] % Auto Lymph % 29 % Auto Rhea % 7 % Auto Eos % 1.5 % Auto Baso % 0.3 % Neut Abs# 4.6 x103/mcL Lymph Abs# 2.1 x103/mcL Rhea Abs# 0.5 x103/mcL Eos Abs# 0.1 x103/mcL [...] provider which I gave her information for [facility] in 3 months. She should call [...] Impression and Plan Diagnosis Epigastric abdominal pain (WET01-CI R10.13, Discharge, Medical) GERD (gastroesophageal reflux disease) (RXC30-DY K21.9, Discharge, Medical) Plan Condition: Stable. Disposition: [...] provided with information for primary care physician: [facility], , Address: [address] [place] [address]. Please call to schedule a follow up [...] epigastric abdominal discomfort. 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 Patient denied any chest pain or shortness of breath. Following medications patient had improved patient given prescription for omeprazole once daily and Pepcid twice daily for her history of gastric ulcer. Also given information to follow Dr. York in [place] patient states she is from [facility] as well as Dr. Jeffery, or Dr. [...] symptoms.. [Electronically Signed on: 12/11/2018 19:06 EST] Jerrell Centeno PA-C [Verified on: 12/11/2018 19:06 EST] Jerrell Centeno PA-C 12:18 12/12/2018 Pt was seen yesterday. 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 This was corrected, and pt picked it up. [Electronically Signed on: 12/12/2018 12:19 EST] Jerrell Centeno PA-C [facility] ED Note-Nursingon 12-11-2018 ED Note-Nursing Patient arrives with c/o epigastric pain/burning that goes to her back. Patient rates pain a 6/10 prior to medication. Hisotry of GERD No nausea/vomiting/diarrhea and no pain with urination. [facility] ED Patient Education Noteon 12-11-2018 ED Patient [...] vinegar, hot sauces, and barbecue sauce. ? [place] fruit juices and citrus fruits, such as oranges, jose guadalupe, and limes. ? Tomato-based foods, such as red sauce, chili, salsa, and pizza with red sauce. ? Fried and fatty foods, such as donuts, slovak fries, potato chips, and high-fat dressings. ? [...] any changes in your symptoms. ? Take tscl-rtj-ncvxdvd and prescription medicines only as told by [...] 08/24/2006 Document Revised: 04/13/2017 Document Reviewed: 03/10/2016 [employer] Patient Education ? 2017 [employer]. Abdominal Pain, Adult Abdominal pain can be [...] Follow these instructions at home: ? Take fwmw-sfq-aniaxyr and prescription medicines only as told by [...] 08/24/2006 Document Revised: 06/03/2017 Document Reviewed: 04/27/2017 [employer] Interactive Patient Education ? 2016 [employer]. Normal [facility] ED Patient Summaryon 019 ED Patient Summary [facility] - Emergency Department [address] [place] [address] PATIENT DISCHARGE INSTRUCTIONS Patient Information Name: LYNNE LAWS Age: 33 Years Date of : [birth year] Reason For Visit: Abdominal pain; ABD PAIN Arrival Time: 12/11/18 16:56:00 Primary Care Physician: Provider, None Attending Physician: Herman Adam MD Comment: Visit Diagnosis: Diagnoses This Visit Abdominal pain ([id number]) Epigastric abdominal pain (R10.13) GERD (gastroesophageal reflux [...] documents With: Address: When: Johnny Sarmiento [address] [place], [place] [phone] Business (1) Within 3 to 5 days With: Address: When: Remy Jeffery [address] [place] [address], [address] [place] [address] Business (1) Within 3 to 5 days With: Address: When: ISABELL YORK [address] [facility] [place] [address] Business (1) Within 3 to 5 days With: Address: When: Follow up with primary care provider Within 3 to 5 days Comments: You are provided with information for primary care physician: [facility], , Address: [address] [place] [address]. Please call to schedule a follow up [...] and treatment you received today in the [facility] Emergency Department were for an urgent problem and are not intended as complete care. It is important for you to follow up with a doctor, nurse practitioner, or physician?s hair or beauty salon assistant for ongoing care. If your symptoms become [...] so we can reach you if necessary. [facility] Emergency Department has provided you with a complete list of medications post discharge. Please inform your gizzard puller/provider of your visit and for further instruction [...] vinegar, hot sauces, and barbecue sauce. ? [place] fruit juices and citrus fruits, such as oranges, jose guadalupe, and limes. ? Tomato-based foods, such as red sauce, chili, salsa, and pizza with red sauce. ? Fried and fatty foods, such as donuts, slovak fries, potato chips, and high-fat dressings. ? [...] any changes in your symptoms. ? Take ywux-gpj-asxkjlf and prescription medicines only as told by [...] 08/24/2006 Document Revised: 04/13/2017 Document Reviewed: 03/10/2016 [employer] Interactive Patient Education ? 2017 [employer]. Abdominal Pain, Adult Abdominal pain can be [...] Follow these instructions at home: ? Take txmo-ubi-sbdnjwb and prescription medicines only as told by [...] 08/24/2006 Document Revised: 06/03/2017 Document Reviewed: 04/27/2017 [employer] Interactive Patient Education ? 2017 [employer]. Viruses or Bacteria What?s got you [...] Disease Control and Prevention July 2014 Normal [facility] Extra Redon 12-11-2018 Tube Collected Yes [facility] Comment on above: Performed By: #### 1 [id number], [id number], [id number], [id number], [id number], [id number] #### [facility] (DEFAULT) [address] [place] [address] Lactic Acidon 12-11-2018 Lactate [Moles/Vol] 7.7 mg/dL Normal 4.5-19.8 [facility] Comment on above: Performed By: #### 2 [id number] ####[facility] (DEFAULT)[address] [place] [address] Lipaseon 12-11-2018 Lipase Level 38.0 IU/L Normal 22.0-51.0 [facility] Comment on above: Performed By: #### 1 [id number], [id number], [id number], [id number], 6695932, [id number] #### [facility] (DEFAULT) [address] [place] [address] Test Urine 1on U Preg Negative Normal [facility] Comment on above: Performed By: #### 3 [id number], [id number] #### [facility] (DEFAULT) [address] [place] [address] U Preg Internal Control Pass Normal [facility] Comment on above: Performed By: #### 3 [id number], [id number] #### [facility] (DEFAULT) [address] [place] [address] UA w Culture if Ind Standard on 12-11-2018 Breakpoint UA Normal [facility] Comment on above: Performed By: #### 3 [id number], [id number] #### [facility] (DEFAULT) [address] [place] [address] Color (U) YELLOW [facility] Comment on above: Performed By: #### 3 [id number], [id number] #### [facility] (DEFAULT) [address] [place] [address] Culture? Not Indicated [facility] Comment on above: Performed By: #### 3 [id number], [id number] #### [facility] (DEFAULT) [address] [place] [address] Glucose (U) [Mass/Vol] Negative [facility] Comment on above: Performed By: #### 3 [id number], [id number] #### [facility] (DEFAULT) [address] [place] [address] Ketones Ql (U) Negative [facility] Comment on above: Performed By: #### 3 [id number], [id number] #### [facility] (DEFAULT) [address] [place] [address] Micro? Not Indicated [facility] Comment on above: Performed By: #### 3 [id number], [id number] #### [facility] (DEFAULT) [address] [place] [address] UA Bilirubin Negative Normal [facility] Comment on above: Performed By: #### 3 [id number], [id number] #### [facility] (DEFAULT) [address] [place] [address] 25000 UA Blood Negative Normal NEGATIVE [facility] Comment on above: Performed By: #### 3 [id number], [id number] #### [facility] (DEFAULT) [address] [place] [address] 86691 UA Clarity CLEAR Normal CLEAR [facility] Comment on above: Performed By: #### 3 [id number], [id number] #### [facility] (DEFAULT) [address] [place] [address] 58344 UA Leuk Est Negative Normal NEGATIVE [facility] Comment on above: Performed By: #### 3 [id number], [id number] #### [facility] (DEFAULT) [address] [place] [address] 16069 UA Nitrite Negative Normal NEGATIVE [facility] Comment on above: Performed By: #### 3 [id number], [id number] #### [facility] (DEFAULT) [address] [place] [address] 00255 UA pH 6.0 5-8 [facility] Comment on above: Performed By: #### 3 [id number], [id number] #### [facility] (DEFAULT) [address] [place] [address] 27352 UA Protein Negative Normal NEGATIVE [facility] Comment on above: Performed By: #### 3 [id number], [id number] #### [facility] (DEFAULT) [address] [place] [address] 22478 UA Spec Grav >=1.030 1.001-1.035 [facility] Comment on above: Performed By: #### 3 [id number], [id number] #### [facility] (DEFAULT) [address] [place] [address] 40113 UA Urobilinogen 0.2 mg/dL Normal 0.2-1.0 [facility] Comment on above: Performed By: #### 3 [id number], [id number] #### [facility] (DEFAULT) [address] [place] [address] 66860 Urine Source Clean Catch Normal [facility] Comment on above: Performed By: #### 3 [id number], [id number] #### [facility] (DEFAULT) [address] [place] [address] C-SPINE WO CONon 09-19-[address] C-SPINE WO CON [address] [place] [address] Patient: LYNNE LAWS Exam Date: 09/18/2017DOB: 1985 Gender:F : DR BURKE HOPE . Admission #: [id number] : Order #: [id number] HERE TO VIEW EXAM RADIOLOGY REPORT CT [...] Magana M.D. on 09/27/2017 at 11:32 Normal [facility] Vital Signs Date Time Vital Sign Value Performing Clinician Facility 09-12-2024 14:41-0400 Body height 180.3 cm Buffy Trinh APRN-SKEIN INSPECTOR Work Phone: [facility] 09-12-2024 14:41-0400 Body mass index (BMI) [Ratio] 28.17 kg/m2 Buffy Trinh APRN-SKEIN INSPECTOR Work Phone: [facility] 09-12-2024 14:41-0400 Body weight 91.63 kg Buffy Trinh APRN-SKEIN INSPECTOR Work Phone: [facility] 09-12-2024 14:41-0400 Diastolic blood pressure 80 mm[Hg] Buffy Trinh APRN-SKEIN INSPECTOR Work Phone: [facility] 09-12-2024 14:41-0400 Systolic blood pressure 122 mm[Hg] Buffy Trinh SLEEP MANAGER-SKEIN INSPECTOR [facility] 08-16-2023 15:40-0400 Body height 178.44 cm Keron Carson Other [facility] Other 08-16-2023 15:40-0400 Body mass index (BMI) [Ratio] 30.91 kg/m2 Keron Carson Other [facility] Other 08-16-2023 15:40-0400 Body weight 98.43 kg Keron Carson Other [facility] Other 08-16-2023 15:40-0400 Diastolic blood pressure 80 mm[Hg] Keron Carson Other [facility] Other 08-16-2023 15:40-0400 Systolic blood pressure 132 mm[Hg] Keron Carson Other [facility] Other 02-24-2023 14:00-0400 Body height 178.44 cm Keron Carson Other [facility] Other 12-23-2022 14:40-0500 Body height 178.44 cm Keron Carson Other [facility] Other 12-23-2022 14:40-0500 Body mass index (BMI) [Ratio] 30.63 kg/m2 Keron Carson Other [facility] Other 12-23-2022 14:40-0500 Body weight 97.52 kg Keron Carson Other [facility] Other 10-12-2022 14:00-0500 Body height 178.44 cm Keron Carson Other [facility] Other 10-12-2022 14:00-0500 Body mass index (BMI) [Ratio] 31.05 kg/m2 Keron Carson Other [facility] Other 10-12-2022 14:00-0500 Body weight 98.88 kg Keron Carson Other [facility] Other 09-11-2022 12:00-0400 Body temperature 98.3 [degF] PHYSICIAN NO [facility] 09-11-2022 12:00-0400 Diastolic blood pressure 91 mm[Hg] PHYSICIAN NO [facility] 09-11-2022 12:00-0400 Heart rate 69 /min PHYSICIAN NO [facility] 09-11-2022 12:00-0400 Respiratory rate 12 /min PHYSICIAN NO [facility] 09-11-2022 12:00-0400 SaO2% (BldA) [Mass fraction] 95 % PHYSICIAN NO [facility] 09-11-2022 12:00-0400 Systolic blood pressure 149 mm[Hg] PHYSICIAN NO [facility] 09-11-2022 04:33-0400 Body weight 98.2 kg PHYSICIAN NO [facility] 09-11-2022 00:00-0400 Inhaled oxygen concentration 95 % PHYSICIAN NO [facility] 09-10-2022 10:30-0400 Inhaled oxygen flow rate 2 L/min PHYSICIAN NO [facility] 09-10-2022 07:04-0400 Body height 180.34 cm PHYSICIAN NO [facility] 09-10-2022 07:04-0400 Body mass index (BMI) [Ratio] 28.7 kg/m2 PHYSICIAN NO [facility] 06-29-2022 10:45-0400 Body height 178.44 cm Henok Crawford Other [facility] Other 06-29-2022 10:45-0400 Body mass index (BMI) [Ratio] 31.05 kg/m2 Henok Crawford Other [facility] Other 06-29-2022 10:45-0400 Body weight 98.88 kg Henok Crawford Other [facility] Other Encounters Encounter Date Encounter Type Care Provider Facility Start: 09-12-2024 End: 09-12-2024 Office outpatient visit 15 minutes Buffy Trinh SLEEP MANAGER-SKEIN INSPECTOR Work Phone: [facility] Comment on above: Cystocele with prola pse (Primary Dx) Start: 09-12-2024 End: 09-12-2024 ambulatory [facility] Start: 12-21-2023 End: 12-21-2023 ambulatory Facility:[facility] Start: 09-02-2023 End: 09-02-2023 ambulatory Keron Carson Other [facility] Other Start: 09-02-2023 Telephone encounter Keron Carson [facility] Start: 08-16-2023 End: 08-16-2023 ambulatory Keron Carson Other [facility] Other Start: 08-16-2023 Office outpatient visit 15 minutes Keron Carson [facility] Start: 02-24-2023 End: 02-24-2023 ambulatory Keron Carson Other [facility] Other Start: 02-24-2023 Office outpatient visit 15 minutes Keron Carson [facility] Start: 02-17-2023 End: 02-17-2023 ambulatory Keron Carson Facility:[facility] Start: 02-17-2023 End: 02-17-2023 ambulatory NON STAFF [facility] Work Phone: Start: 02-17-2023 End: 02-17-2023 Patient encounter procedure [facility] Work Phone: Start: 12-23-2022 End: 12-23-2022 ambulatory Keron Carson Other [facility] Other Start: 12-23-2022 Office outpatient visit 15 minutes Keron Carson [facility] Start: 12-21-2022 End: 12-21-2022 ambulatory Keron Carson Facility:[facility] Start: 12-21-2022 End: 12-21-2022 ambulatory NON STAFF [facility] Work Phone: Start: 12-21-2022 End: 12-21-2022 Patient encounter procedure MD Keron Carson Work Phone: [facility] Work Phone: Start: 10-12-2022 End: 10-12-2022 ambulatory Keron Carson Other [facility] Other Start: 10-12-2022 Postop follow up visit related to original px Keron Carson [facility] Start: 10-01-2022 End: 10-01-2022 ambulatory Keron Carson Facility:[facility] Start: 10-01-2022 End: 10-01-2022 ambulatory PHYSICIAN NO [facility] Work Phone: Start: 10-01-2022 End: 10-01-2022 Patient encounter procedure PHYSICIAN NO [facility] Start: 09-10-2022 [facility] Keron Carson [facility] Start: 09-10-2022 End: 09-10-2022 ambulatory Keron Carson Other [facility] Other Start: 09-09-2022 End: 09-09-2022 ambulatory Keron Carson Other [facility] Other Start: 09-09-2022 Patient encounter procedure Keron Carson [facility] Start: 09-08-2022 End: 09-08-2022 ambulatory Keron Carson Other [facility] Other Start: 09-08-2022 Patient encounter procedure Keron Carson [facility] Start: 09-07-2022 End: 09-11-2022 Evaluation and management of inpatient PHYSICIAN NO FAMILY Facility:[facility] Start: 09-07-2022 End: 09-11-2022 Evaluation and management of inpatient PHYSICIAN NO FAMILY [facility] Start: 07-20-2022 End: 07-20-2022 ambulatory Henok Crawford Other [facility] Other Start: 07-20-2022 Telephone encounter Henok MCCALL [facility] Start: 06-29-2022 End: 06-29-2022 ambulatory Henok Reemagiulianolalo Other [facility] Other Start: 06-29-2022 [facility] visit new patient Henok Crawford [facility] Start: 09-19-2017 End: 09-19-2017 Ambulatory BURKE HOPE Facility:[facility] Procedures Date Procedure Procedure Detail Performing Clinician Start: 02-17-2023 X-ray of cervical spine Start: 12-21-2022 X-ray of cervical spine MD Keron Carson Work Phone: Start: 10-01-2022 X-ray of cervical spine PHYSICIAN NO FAMILY Start: 09-10-2022 X-ray of cervical spine PHYSICIAN NO FAMILY Start: 09-07-2022 X-ray of cervical spine PHYSICIAN NO FAMILY Start: 08-17-2021 Microscopic observat ion [Identifier] in Cervix by Cyto stain Buffy Trinh SLEEP MANAGER-SKEIN INSPECTOR Work Phone: Plan of Treatment Date Care Activity Detail Author Start: 09-12-2025 Adult BMI Screening Adult BMI Screen ing [facility] Start: 09-12-2025 Tobacco Screening Tobacco Screening [facility] Start: 08-17-2024 Screening for malign ant neoplasm of cervix Pap Smear [facility] Start: 07-29-2024 COVID-19 Vaccine ( season) COVID-19 Vaccine ( season) [facility] Start: 07-29-2024 Influenza vaccination Influenza Vacc ine [facility] Start: 11-09-2023 Adult BMI Follow Up Plan Adult BMI Follow Up Plan [facility] Start: 09-11-2022 [facility] Start: 09-10-2022 [facility] Start: 09-07-2022 Consultation [facility] Start: 09-07-2022 Fusion of 2 or more Cervical Vertebral Joints with Autologous Tissue Substitute, Posterior Approach, Posterior Column, Open Approach Fusion of 2 or more Cervical Vertebral Joints with Autologous Tissue Substitute, Posterior Approach, Posterior Column, Open Approach [facility] Start: 09-07-2022 Release Cervical Ner ve, Open Approach Release Cervical Nerve, Open Approach [facility] Start: 09-07-2022 Resection of Cervica l Vertebral Disc, Open Approach Resection of Cervical Vertebral Disc, Open Approach [facility] Start: 2006 DTaP,Tdap and Td Vac cines (1 - Tdap) DTaP,Tdap and Td Vaccines (1 - Tdap) [facility] Start: 1999 [facility] Work Phone: Immunizations Immunization Date Immunization Notes Care Provider Deepak duque 10-12-2022 influenza virus vaccine, unspecified formulation Buffy Trinh SLEEP MANAGER-SKEIN INSPECTOR Work Phone: [facility] Payers Date Payer Category Payer Self-pay [id number] 2020 Unknown [id number] 2020 Private Health Insurance [id number] 2018 Unknown [id number] 1999 Medicaid [id number] 1987 Unknown [id number] 1959 Private Health Insurance [id number] Medicaid [employer] [id number] Private Health Insurance [employer] [id number] Unknown MMO [id number] Unknown Regular Auto/Liability [id number] Unknown [id number] 31 Unknown [id number] 31 Unknown [id number] 31 Unknown [id number] 31 Social History Date Type Detail Facility Start: 01-08-2021 End: 09-12-2024 Sex Assigned At [facility] Start: 09-10-2022 End: 09-12-2024 Tobacco smoking status CTIS Ex-smoker (finding) [facility] Start: 1985 Sex Assigned At Female [facility] End: 07-29-2016 History of tobacco use Current smoker [facility] End: 07-29-2016 History of tobacco use Cigarette Smoker [facility] Start: 09-12-2024 Tobacco use and exposure Smokeless tobacco [facility]user [facility] Start: 09-12-2024 Alcoholic beverage intake Current drinker of alcohol (finding) [facility] Start: 01-08-2021 End: 09-12-2024 History of Social function [facility]care Unknown [facility] Start: 01-24-2020 Alcohol Comment ocassional, not often [facility] Start: 01-15-2016 Sex Female (finding) [facility] Start: 07-31-2021 Gender identity Identifies as female gender (finding) [facility] Start: 07-31-2021 Sexual orientation Heterosexual (finding) [facility] Medical Equipment Procedure Code Equipment Code Equipment Origin al Text Equipment Identifier Dates BONE 7MM DUO FORTITUDE SERIES FDA Start: 09-10-2022 Spinal fixation plate, non-bioabsorbable [id number] FDA Start: 09-10-2022 Spinal fixation plate, non-bioabsorbable ()[id number] FDA Start: 09-10-2022 Intervertebral-b ari internal spinal fixation system [id number] FDA Start: 09-10-2022 BONE 7MM DUO FORTITUDE SERIES FDA Start: 09-10-2022 BONE 7MM DUO FORTITUDE SERIES FDA Start: 09-10-2022 Goals Date Patient Goal Desired Activity /State Functional Status Date Assessment Result Facility 09-11-2022 Functional status Patient at [facility] Work Phone: Mental Status Date Assessment Result Facility 09-11-2022 Cognitive function Cognitive Sta tus Patient at Baseline [facility] Work Phone: Clinical Notes 06-29-2022 to 09-12-2024 Buffy Trinh, SLEEP MANAGER-SKEIN INSPECTOR - 09/12/2024 2:45 PM EDT Note Date & Type Note Facility 09-12-2024 History of Present illness Narrative Lynne Levine is a 38 y.o.female. Patient's last menstrual period was 09/11/2024.. She presents with c/o large, uncomfortable bulge from vagina. Patient has had this before, but not as bad. She reports hx of incontinence. Current contraception:vasectomy OB History 4 Para 4 Term AB Living SAB IAB Ectopic Multiple Live Births MEDICAL HX Past Medical History: Diagnosis Date Anemia Anxiety Arthritis neck Chipped tooth Chronic migraine Chronic pain disorder Depression Exercise-induced asthma GERD (gastroesophageal reflux disease) Insomnia Joint pain Low back pain Neck pain TMJ (temporomandibular joint disorder) SURGICAL HX Past Surgical History: Procedure Laterality Date CERVICAL FUSION CERVICAL FUSION 2016 C5-C5 CERVICAL SPINE SURGERY ELBOW SURGERY INJECTION BLOCK EPIDURAL CAUDAL STEROID N/A 02/26/2022 Performed by Stuart Carrasco MD at [facility] INJECTION BLOCK EPIDURAL CAUDAL STEROID N/A 01/22/2022 Performed by Stuart Carrasco MD at [facility] INJECTION BLOCK NERVE MEDIAL BRANCH: bilat C /3 3/4 Bilateral 08/12/2023 Performed by Stuart Carrasco MD at [facility] INJECTION BLOCK SACROILIAC JOINT Left 10/02/2021 Performed by Stuart Carrasco MD at [facility] INJECTION SPINE TRANSFORAMINAL Left L 5,1 Nroot Left 08/21/2021 Performed by Stuart Carrasco MD at [facility] INJECTION SPINE TRANSFORAMINAL: left L 5,1 nroot Left 11/13/2021 Performed by Stuart Carrasco MD at [facility] KNEE ARTHROSCOPY 2010 fluid removed LAPAROSCOPIC CHOLECYSTECTOMY N/A 01/24/2020 Performed by Lobito Pruitt MD at [facility] HX Family History Problem Relation Age of Onset Diabetes Mother Heart disease Father Liver disease Father Cancer Maternal Grandfather Lung cancer Paternal Grandmother Breast cancer Paternal Grandmother Lung cancer Paternal Uncle Cancer Paternal Uncle Kidney and Liver Cancer Ovarian cancer Neg Hx MEDS Current Outpatient Medications Medication Sig Dispense Refill cyclobenzaprine (FLEXERIL) 10 mg tablet Take 1 tablet (10 mg total) by mouth as needed. Last 05/2023 (Patient not taking: Reported on 09/12/2024) ibuprofen (MOTRIN) 800 mg tablet 3 (three) times a day. (Patient not taking: Reported on 09/12/2024) No current facility-administered medications for this visit. ALLERGIES Allergies Allergen Reactions Shellfish Containing Products Rash Okay with IV dye Review of Systems Review of Systems Constitutional: Negative. Gastrointestinal: Negative. Genitourinary: Negative. Neurological: Negative. Psychiatric/Behavioral: Negative. Objective BP 122/80 Ht 180.3 cm (5' 11 ) Wt 91.6 kg (202 lb) LMP 09/11/2024 BMI 28.17 kg/m Physical Exam Vitals and nursing note reviewed. Constitutional: Appearance: Normal appearance. Pulmonary: Effort: Pulmonary effort is normal. Genitourinary: General: Normal vulva. Labia: Right: No rash or lesion. Left: No rash or lesion. Comments: Grade 4 prolapse noted at vaginal entrance Musculoskeletal: General: Normal range of motion. Skin: General: Skin is warm and dry. Neurological: Mental Status: She is alert and oriented to person, place, and time. Psychiatric: Mood and Affect: Mood normal. Speech: Speech normal. Behavior: Behavior normal. Thought Content: Thought content normal. Judgment: Judgment normal. Assessment/Plan: Shagufta was seen today for vaginal pain. Diagnoses and all orders for this visit: Cystocele with prolapse - [facility] - [facility]necology - [place], [place]; Future Patient has tried pelvic floor therapy in the past with minimal improvement. Referral placed to uro / proof operator. Information given for BCCP program so patient can get scheduled for annual / pap d/t no insurance. All questions answered. Educational material provided through [employer]. RTO for annual and / or sooner as needed. MATTY Haq APRN-CNP Lisa M Krotzer, APRN-CNP 09/12/24 1518 documented in this encounter [facility] 08-16-2023 Evaluation note Encounter Date Diagnosis Assessment [...] pain of left shoulder (ICD-10 - M25.512) [facility] Other 03-30-2023 Evaluation note* Encounter Date Diagnosis [...] in nature these are not radicular symptoms. [facility] Other 01-26-2023 Evaluation note* Encounter Date Diagnosis [...] also possible the tingling may never improve. [facility] Other 11-15-2022 Evaluation note* Encounter Date Diagnosis Assessment Notes Treatment Notes Treatment Clinical Notes 15 Nov, 2022 Spondylolisthesis, cervical region (ICD-10 - M43.12) Lynne is doing very well, her radicular symptoms are completely gone. She does still complain of some weakness in her arm and her hand and wishes to do physical therapy, I sent a referral to [facility] in [place] for this. I independently reviewed the x-ray [...] fusion of cervical spine (ICD-10 - Z98.1) [facility] Other 08-23-2022 Evaluation note* Encounter Date Diagnosis Assessment Notes Treatment Notes Treatment Clinical Notes Jun, GERD (gastroesophageal reflux disease) (ICD-10 - K21.9) [facility] Other 08-02-2022 Evaluation note* Encounter Date Diagnosis Assessment Notes Treatment Notes Treatment Clinical Notes Jun, GERD (gastroesophageal reflux disease) (ICD-10 - K21.9) STOP SUCRALFATE START LANSOPRAZOLE 30 MG BID IF NOT IMPROVED WILL CONSIDER EGD/ GONZALEZ RTO 3 MONTHS Jun, Abdominal pain (ICD-10 - R10.9) [facility] Other Evaluation noteNo InformationNort [facility] Other evaluation note* Diagnosis Onset Date Resolution Status Cervical disc disorder at C6-C7 level with radiculopat hy acute Left arm weakness acute Neck fracture acute [facility] Work Phone: Evaluation noteNo assessment information available [facility] Work Phone: Evaluation note* Diagnosis Cystocele with prolapse- [facility] - [facility]* Type Description Date Medical History GERD Surgical History neck surgery Surgical History Procedure:20 hr labor ;Dise ase: 2008 Surgical History knee surgery 2011 Surgical History Procedure:12 hr labor ;Dise ase: 2007 Surgical History Procedure: 2 hr labor ;Dise ase: 2016 Surgical History Laparoscopic Cholecystectomy-[facility] 12/2019 Hospitalization History [facility] Other History general Narrative - Reported* Type Description Date Medical History GERD Surgical History neck surgery Surgical History Procedure:20 hr labor ;Dise ase: 2009 Surgical History knee surgery 2012 Surgical History Procedure:12 hr labor ;Dise ase: 2007 Surgical History Procedure: 2 hr labor ;Dise ase: 2016 Surgical History Laparoscopic Cholecystectomy-[facility] 12/2019 Hospitalization History cb Hospitalization History see above surg. hx. [facility] Other Instructions* Attachments The following attachments cannot be sent through Care Everywhere. * Cystocele and Rectocele (Italian) documented in [facility] encounterD[facility] CenterReason for visit NarrativePT HERE AT REQUEST OF DR CRUZ FOR EVALUATION AND TREATMENT OF GERD / ABDOMINAL PAIN, REFERRAL NOTERECEIVEDGwynneville [facility] Other Reason for visit NarrativePain Medicine Referral UpdateNochristian hospital [facility] Other Summary Purpose Family History No Family [...] Advance Directives No December 25, 2018 9:09am Date Activated Date Inactivated Comments 01/24/2020 12:52 PM 01/24/2020 7:00 PM Date Activated Date Inactivated Comments 01/24/2020 10:06 AM 01/24/2020 12:52 PM Hospital Course Note [facility] Clinical Discharge Summary PERSON INFORMATION Name YLNNE LAWS Age 34 Years 1985 Sex FEMALE Language Italian PCP Provider, None Marital Status Med Service Observation Acct# Arrival 10/28/2019 23:15:38 Visit Reason Nausea; Vomiting; ABD PAIN Acuity LOS 000 13:08 Address: [address] [facility] [id number] Comment: PROVIDER INFORMATION VITALS INFORMATION Vital Sign [...] Herniated cervical d isc (M50.20) Referral Organization [facility] Referring Provider First Name Keron Referring Provider Last Name Yamileth Referring Provider Specialty Neurologica l Surgery Referred Organization [facility] Referred Provider Stuart Carrasco Jr. Referred Address [address], [place],[address] Referred Provider Specialty Pain Medicin e Referral Priority Routine Reason evaluate and treat f or neck and arm pain Diagnosis 1 Left cervical radicu lopathy (M54.12) Referral Organization [facility] Referring Provider First Name Keron Referring Provider Last Name Yamileth Referring Provider Specialty Neurologica l Surgery Referred Organization [facility] Referred Address [address] [place], [place],[address] Referred Provider 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 Referral Priority Routine Reason Evaluate and Treat O utpatient PT for Arm Strengthening Diagnosis 1 Spondylolisthesis, c ervical region (M43.12) Referral Organization [facility] Referring Provider First Name Keron Referring Provider Last Name Yamileth Referring Provider Specialty Neurologica l Surgery Referred Organization [facility] Referred Address [address] [place],[address] Referred Provider 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 Priority Routine Additional Source Comments INFORMATION SOURCE (unrecogn ized section and content) DATE CREATED AUTHOR 05/23/2018 [facility] DATE CREATED AUTHOR AUTHOR'S ORGANIZ ATION 11/07/2019 [facility] DATE CREATED AUTHOR AUTHOR'S ORGANIZ ATION 03/03/2023 [facility] DATE CREATED AUTHOR AUTHOR'S ORGANIZ ATION 12/22/2023 [facility] DATE CREATED AUTHOR AUTHOR'S ORGANIZ ATION 09/15/2024 [facility] REASON FOR VISIT (unrecogniz ed section and content) Reason Comments Vaginal Pain Pt c/o vaginal bulge with pain Care Teams (unrecognized sec tion and content) Team Status: Inactive Member Role Status Dates PHYSICIAN NO FAMILY Primary Care Provider Active Gt Haro DO Admit Provider Active Eladio Mayo MD Attending Provider Active Brian Scott CSTFA Other Provider Active Keron Carson MD [...] Team Status: Active Member Role Status Dates Nely Cruz PA-C Primary Care Provider Activ e Team Status: Inactive Member Role Status Dates Keron Carson MD Attending Provider Active Nely Cruz PA-C Primary Care Provider Activ 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 [employer] [facility]. provides no warranty or guarantee of the accuracy or completeness of information in this document.
--- NOTE | 2024-12-09 19:59 | CT_ITS ---
The [address] [address] Patient Name: MARY GAN MRN: [id number] date: 1985 Sex: F Assigned Patient Location: ER Current Patient Location: Accession/Order Number: [id number] Exam Date: 12/09/2024 20:46 Report Date: 12/09/2024 21:29 At the request of: SONI DINERO Procedure: CT abdomen pelvis wo con EXAMINATION: CT abdomen pelvis wo con HISTORY: flank pain, h/o stones COMPARISON: No relevant comparison available. TECHNIQUE: Axial, Coronal, and Sagittal images were obtained without and/or with IV contrast as indicated by examination type. Dose reduction techniques were achieved by using automated exposure control and/or adjustment of mA and/or kV according to patient size and/or use of iterative reconstruction technique. FINDINGS: LUNG BASES: No visible pulmonary or pleural disease. LIVER: No enlargement, atrophy, suspicious density, or significant focal lesion. BILIARY: Cholecystectomy. PANCREAS: No lesion, fluid collection, or abnormal duct dilatation. SPLEEN: No enlargement or focal lesion. ADRENALS: No mass or enlargement. KIDNEYS: A couple 1 mm nonobstructing stones within left kidney. Unremarkable right kidney and bilateral ureters. BOWEL/MESENTERY: No visible mass, obstruction, or bowel wall thickening. Normal appendix. AORTA/VASCULAR: No aneurysm or dissection. RETROPERITONEUM: No mass or adenopathy. LYMPH NODES: No adenopathy. URINARY BLADDER: No visible focal wall thickening, lesion, or calculus. PELVIC ORGANS: 1.8 cm cyst versus dominant follicle within right ovary. No visible mass. Pelvic organs appropriate for patient age. ABDOMINAL WALL: No mass or hernia. BONES: No bony lesion or fracture. OTHER: Negative. CT/CT abdomen pelvis wo con IMPRESSION: 1. Nonobstructing left nephrolithiasis. 2. No acute or specific findings to account for patient's right flank pain. 3. Right ovary contains a 1.6 cm cyst versus dominant follicle of uncertain clinical significance.. Electronically authenticated by: KAIDEN SIMPSON Date: 12/09/2024 21:29
[2024-12-09] MEDS: 0.9 % SODIUM CHLORIDE 1,000 ML 100 ML IV (20:20)
[2024-12-09] MEDS: ONDANSETRON PF 4 MG/2 ML VIAL IV (20:21)
[2024-12-09] MEDS: KETOROLAC TROMETHAMINE 30 MG/ML VIAL IVP (20:21)
[2024-12-09 20:33] LABS: Basophils Absolute Auto 0.1 10^3/uL (0.0-0.1); Basophils Percent Auto 0.5 % (0.2-2.0); Eosinophils Absolute Auto 0.1 10^3/uL (0.0-0.7); Eosinophils Percent Auto 0.7 % (0.9-7.0); Hematocrit 39.3 % (36.0-48.0); Hemoglobin 12.9 g/dL (12.0-16.0); Immature Granulocytes Abs Auto 0.03 10^3/uL (0.00-0.03); Immature Granulocytes Pct Auto 0.3 % (0.0-0.5); Lymphocytes Absolute Auto 3.2 10^3/uL (1.2-3.8); Lymphocytes Percent Auto 29.8 % (20.5-60.0); Mean Corpuscular HGB Conc 32.8 g/dL (29.9-35.2); Mean Corpuscular Hemoglobin 29.9 pg (26.7-34.0); Mean Platelet Volume 10.3 fL (9.5-13.5); Monocytes Absolute Auto 0.6 10^3/uL (0.3-0.8); Monocytes Percent Auto 5.5 % (1.7-12.0); Neutrophils Absolute Auto 6.7 10^3/uL (1.4-6.5); Neutrophils Percent Auto 63.2 % (43.0-75.0); Platelet Count 285 10^3/uL (150-450); Red Blood Count 4.32 10^6/uL (4.20-5.40); Red Cell Distribution Width 12.2 % (11.0-15.0); White Blood Count 10.7 10^3/uL (4.0-11.0)
[2024-12-09 20:34] LABS: Bilirubin Urine NEGATIVE (NEGATIVE); Blood Urine NEGATIVE (NEGATIVE); Clarity Urine CLEAR (CLEAR); Color Urine LT. YELLOW (YELLOW); Glucose Urine UA NEGATIVE (NEGATIVE); Ketones Urine NEGATIVE (NEGATIVE); Leukocyte Esterase Urine NEGATIVE (NEGATIVE); Nitrite Urine NEGATIVE (NEGATIVE); Protein Urine NEGATIVE (NEG/TRACE); Urobilinogen Urine 0.2 EU/dL (0.2-1.0); pH Urine 6.5 (5.0-9.0)
[2024-12-09 20:38] LABS: HCG Qualitative Urine* NEGATIVE (NEGATIVE); Internal Control Within Normal Limits; Urine Microscopic Indicated NO
[2024-12-09 20:52] LABS: Alanine Aminotransferase 21 U/L (14-59); Albumin Globulin Ratio 1.2; Albumin Level 3.9 g/dL (3.4-5.0); Alkaline Phosphatase 51 U/L (46-116); Anion Gap 14.4; Aspartate Amino Transferase 11 U/L (15-37); BUN Creatinine Ratio 14.8; Bilirubin Total 0.2 mg/dL (0.2-1.0); Carbon Dioxide 26.2 mmol/L (21.0-32.0); Chloride 103 mmol/L (98-107); Estimated GFR (African America >60 (>=60 mL/min/1.73m^2); Estimated GFR (Non-African Ame >60 (>=60 mL/min/1.73m^2); Globulin 3.3 g/dL; Glucose 98 mg/dL (74-106); Potassium 3.6 mmol/L (3.5-5.1); Sodium 140 mmol/L (136-145); Total Protein 7.2 g/dL (6.4-8.2)
[2024-12-09] MEDS: MORPHINE SULFATE 2 MG/ML SYRINGE IV (21:11)
--- NOTE | 2024-12-09 21:23 | ED.GENADUL1 ---
HPI HPI - General Adult General Chief complaint: Abdominal Pain Stated complaint: Abdominal Pain Time Seen by Provider: 12/09/24 19:47 Source: patient Mode of arrival: walk-in Limitations: no limitations History of Present Illness HPI narrative: 39-year-old female presents here with chief complaint right flank right lower abdominal pain. She states she did not start having pain because nausea several hours prior to arrival today. She states the pain has been intermittent and nausea has continued. She does have a history of stones but does not remember if this was a similar presentation. She states she does not have her gallbladder. She does have her appendix. Her abdomen soft nontender to palpation on initial exam. Related Data Previous Rx's ?Medication ?Instructions ?Recorded albuterol sulfate 90 mcg/actuation 2 inh inhalation Q4H PRN shortness 08/09/24 aerosol inhaler of breath or wheezing #8.5 grams azithromycin 250 mg tablet See Rx Instructions PO .COMPLEX #6 08/09/24 (Zithromax Z-Salo) tabs benzonatate 100 mg capsule 100 mg PO TID PRN cough #20 caps 08/09/24 prednisone 10 mg tablet See Rx Instructions .Route 08/09/24 .COMPLEX #30 tabs dicyclomine 20 mg tablet 20 mg PO TID PRN abdominal pain 12/09/24 #10 tabs ondansetron 4 mg disintegrating 4 mg PO Q8H PRN nausea and 12/09/24 tablet vomiting 3 days #10 tabs Allergies Allergy/AdvReac Type Severity Reaction Status Date / Time No Known Drug Allergies Allergy Verified 12/09/24 19:57 Opioid HPI Opioid Management Most Recent Opioid Data: Last Pain Scale 8 12/09/24 21:11 12/09/24 Review of Systems ROS Narrative All Systems are negative except as noted/marked.All systems reviewed and otherwise negative PFSH PFS Social History Little interest or pleasure in doing things: not at all Feeling down, depressed, or hopeless: not at all Exam Narrative Exam Narrative: All Systems are negative except as noted/marked.All systems reviewed and otherwise negative Nurses note and vital signs reviewed and patient is not hypoxic. General: The patient appears well and in no apparent distress. Patient is resting comfortably on cart. Skin: Warm, dry, no pallor noted. There is no rash noted. Head: Normocephalic, atraumatic Eye: Normal conjunctiva, no drainage, EOMI. PERRL Ears, Nose, Mouth, and Throat: oral mucosa is moist. Nares patent. Mouth without vesicles. Ear canals patent. Tm's without Erythema Cardiovascular: Regular Rate and Rhythm Respiratory: Patient is in no distress, no accessory muscle use, lungs are clear to auscultation, no wheezing, rales or rhonchi Back: non-tender, no CVA tenderness bilaterally to percussion. GI: Normal bowel sounds, no tenderness to palpation, no masses appreciated. No rebound, guarding, or rigidity noted. Musculoskeletal: The patient has no evidence of calf tenderness, no pitting edema, symmetrical pulses noted bilaterally Neurological: A&O x4, normal speech Psychiatric: Cooperative Constitutional Vital Signs, click to edit/add: Last Vital Signs Temp 98.3 F 12/09/24 19:51 Pulse 82 12/09/24 21:38 Resp 18 12/09/24 21:38 BP 105/72 12/09/24 21:38 Pulse Ox 98 12/09/24 21:38 O2 Del Method Room Air 12/09/24 19:51 Course Vital Signs Vital signs: Vital Signs Temperature 98.3 F 12/09/24 19:51 Pulse Rate 98 H 12/09/24 19:51 Respiratory Rate 18 12/09/24 19:51 Blood Pressure 135/115 H 12/09/24 19:51 Pulse Oximetry 98 12/09/24 19:51 Oxygen Delivery Method Room Air 12/09/24 19:51 Temperature 98.3 F 12/09/24 19:51 Pulse Rate 82 12/09/24 21:38 Respiratory Rate 18 12/09/24 21:38 Blood Pressure 105/72 12/09/24 21:38 Pulse Oximetry 98 12/09/24 21:38 Oxygen Delivery Method Room Air 12/09/24 19:51 Medical Decision Making MDM Narrative Medical decision making narrative: 39-year-old female presents here with chief complaint right flank right lower abdominal pain. She states she did not start having pain because nausea several hours prior to arrival today. She states the pain has been intermittent and nausea has continued. She does have a history of stones but does not remember if this was a similar presentation. She states she does not have her gallbladder. She does have her appendix. Her abdomen soft nontender to palpation on initial exam. upon arrival To the emergency room patient was given IV fluids with Toradol and Zofran. She continued to have some pain and was then medicated with morphine. CT scan was ordered as well as CBC and CMP. Blood work and unremarkable including urinalysis. CT scan of abdomen and pelvis is currently pending. Patient went and was admitted her pain has improved blood pressure has improved. CT scan was reviewed with her including results of nothing really acute for her right flank pain insignificant right ovarian follicular cyst was noted. Patient's lab work is also unremarkable. She will be treated with Bentyl here to help with abdominal cramping. I did discuss diagnosis of gastroenteritis or abdominal pain with patient. Reasons return to emergency room were reviewed. Patient looks well at this time. She will be discharged home prescription of Bentyl and Zofran as well. Encouraged to follow-up with her primary care physician. She agrees with plan of care. Differential Diagnosis Differential Diagnosis: , Appendicitis, flank pain, nephrolithiasis Medical Records Medical records reviewed: Yes I reviewed the patient's medical records Lab Data Lab results reviewed: Yes I reviewed the patient's lab results Labs: Lab Results 12/09/24 12/09/24 Range/Units 20:13 20:14 WBC 10.7 (4.0-11.0) 10^3/uL RBC 4.32 (4.20-5.40) 10^6/uL Hgb 12.9 (12.0-16.0) g/dL Hct 39.3 (36.0-48.0) % MCV 91.0 (81.0-99.0) fL MCH 29.9 (26.7-34.0) pg MCHC 32.8 (29.9-35.2) g/dL RDW 12.2 (11.0-15.0) % Plt Count 285 (150-450) 10^3/uL MPV 10.3 (9.5-13.5) fL Neut % (Auto) 63.2 (43.0-75.0) % Lymph % (Auto) 29.8 (20.5-60.0) % Whitley % (Auto) 5.5 (1.7-12.0) % Eos % (Auto) 0.7 L (0.9-7.0) % Baso % (Auto) 0.5 (0.2-2.0) % Neut # (Auto) 6.7 H (1.4-6.5) 10^3/uL Lymph # (Auto) 3.2 (1.2-3.8) 10^3/uL Whitley # (Auto) 0.6 (0.3-0.8) 10^3/uL Eos # (Auto) 0.1 (0.0-0.7) 10^3/uL Baso # (Auto) 0.1 (0.0-0.1) 10^3/uL Abs Immat Gran (auto) 0.03 (0.00-0.03) 10^3/uL Imm/Tot Granulo (auto) 0.3 (0.0-0.5) % Sodium 140 (136-145) mmol/L Potassium 3.6 (3.5-5.1) mmol/L Chloride 103 (98-107) mmol/L Carbon Dioxide 26.2 (21.0-32.0) mmol/L Anion Gap 14.4 BUN 13.0 (7.0-18.0) mg/dL Creatinine 0.88 (0.55-1.02) mg/dL Est GFR ( Amer) >60 (>=60 mL/min/1.73m^2) Est GFR (Non-Af Amer) >60 (>=60 mL/min/1.73m^2) BUN/Creatinine Ratio 14.8 Glucose 98 (74-106) mg/dL Calcium 9.0 (8.5-10.1) mg/dL Total Bilirubin 0.2 (0.2-1.0) mg/dL AST 11 L (15-37) U/L ALT 21 (14-59) U/L Alkaline Phosphatase 51 (46-116) U/L Total Protein 7.2 (6.4-8.2) g/dL Albumin 3.9 (3.4-5.0) g/dL Globulin 3.3 g/dL Albumin/Globulin Ratio 1.2 Urine Color Lt. yellow (YELLOW) Urine Clarity Clear (CLEAR) Urine pH 6.5 (5.0-9.0) Ur Specific [place] 1.020 (1.005-1.025) Urine Protein Negative (NEG/TRACE) mg/dL Urine Glucose (UA) Negative (NEGATIVE) mg/dL Urine Ketones Negative (NEGATIVE) mg/dL Urine Occult Blood Negative (NEGATIVE) Urine Nitrite Negative (NEGATIVE) Urine Bilirubin Negative (NEGATIVE) Urine Urobilinogen 0.2 (0.2-1.0) EU/dL Ur Leukocyte Esterase Negative (NEGATIVE) Urine HCG, Qual Negative (NEGATIVE) Imaging Data CT scan - abdomen: Radiologist's impression: ITS Impressions Abdomen/Pelvis CT 12/09/24 19:59 IMPRESSION: 1. Nonobstructing left nephrolithiasis. 2. No acute or specific findings to account for patient's right flank pain. 3. Right ovary contains a 1.6 cm cyst versus dominant follicle of uncertain clinical significance.. Electronically authenticated by: KAIDEN SIMPSON Date: 12/09/2024 21:29 Discharge Plan Discharge Chief Complaint: Abdominal Pain Clinical Impression: Abdominal pain, Gastritis Patient Disposition: Home, Self-Care Time of Disposition Decision: 21:44 Condition: Good Prescriptions / Home Meds: New dicyclomine 20 mg tablet 20 mg PO TID PRN (Reason: abdominal pain) Qty: 10 0RF ondansetron 4 mg tablet,disintegrating 4 mg PO Q8H PRN (Reason: nausea and vomiting) 3 Days Qty: 10 0RF No Action prednisone 10 mg tablet See Rx Instructions .ROUTE .COMPLEX Qty: 30 0RF Rx Instructions: 4 by mouth daily for three days then 3 by mouth daily for three days then 2 by mouth daily for three days then 1 by mouth daily for three days azithromycin [Zithromax Z-Salo] 250 mg tablet See Rx Instructions .ROUTE .COMPLEX Qty: 6 0RF Rx Instructions: For 250 mg dose pack: take 500 mg today (day 1), then 250 mg for 4 days (days 2-5) benzonatate 100 mg capsule 100 mg PO TID PRN (Reason: cough) Qty: 20 0RF albuterol sulfate 90 mcg/actuation HFA aerosol inhaler 2 inh inhalation Q4H PRN (Reason: shortness of breath or wheezing) Qty: 8.5 0RF Print Language: Urdu Instructions: Gastritis (ED), Abdominal Pain (ED) Referrals: [facility] [Primary Care Provider] - 1 week
[2024-12-09 21:38] VITALS: BP 105/72; PULSE 82; O2SAT 98
[2024-12-09] MEDS: DICYCLOMINE HCL 20 MG/2 ML VIAL IM (22:10)
== END 2024-12-09 22:17 | disposition home or self-care (01) ==
PROVIDERS: Physician Assistant; Emergency Provider Emergency Medicine
DX: K29.70 Gastritis, unspecified, without bleeding (principal); R10.31 Right lower quadrant pain; Z90.49 Acquired absence of other specified parts of digestive tract; Z87.442 Personal history of urinary calculi
CPT/HCPCS: 36415; 74176; 80053; 81003; 84703; 85025; 96361; 96372; 96374; 96375; 99285; J0500; J1885; J2270; J2405

== ENCOUNTER 2025-02-01 12:05 | Emergency (ER) | payer OTHER, SELFPAY ==
[2025-02-01 12:08] VITALS: BP 136/92; PULSE 107; TEMP 36.4; O2SAT 95; BMI 30.1
--- OUTSIDE RECORDS SUMMARY | 2025-02-01 12:25 | XMS_ITS | CCD ---
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 Name Role Phone BURKE HOPE Unavailable Unavailable BURKE HOPE Unavailable Unavailable MISC, DOCTOR Unavailable Unavailable BURKE HOPE Unavailable Unavailable Henok Crawford Unavailable Keron Carson Unavailable NO FAMILY, PHYSICIAN Primary Care Provider Unava ilable DO Gt Haro Admit Provider MD Eladio Mayo Attending Provider [phone] Clonch, CSTFA Brian Other Provider UnavailMD Keron Rodriguez Other Provider MD Jim Cardona Other Provider [phone] MD Keron Carson Attending Provider NON [...] Attending Unavailable NON STAFF Primary Care Unavailable BUFFY STEARNS Attending Unavailable NELY CRUZ Referring Unavailable NELY CRUZ Primary Care Unavailable Nely Cruz PA-C Primary Care Provider Nely Cruz PA-C Primary Care Provider NELY CRUZ Primary Care Unavailable SERG VARGAS Referring Unavailable SERG VARGAS Referring Unavailable NELY CRUZ Primary Care Unavailable SERG VARGAS Attending Unavailable SERG VARGAS Admitting Unavailable NELY CRUZ Primary Care Unavailable SERG VARGAS Attending Unavailable SERG VARGAS Admitting Unavailable NELY CRUZ Primary Care Unavailable Allergies Allergy Classification Reported Allergen(s) Allergy Type Date of Onset Reaction(s) Facility (10 sources) Shellfish Propensity to adverse reactions Unknown [employer] Other (10 sources) Shellfish Drug allergy Unknown [employer] Other (4 sources) Shellfish; Translations: [shellfish derived] Allergy to substance 0 Anaphylaxis [facility] (2 sources) SHELLFISH CONTAINING PRODUCTS; Translations: [SHELLFISH CONTAINING PRODUCTS] Propensity to adverse reactions to food (disorder) Rash [facility] (4 sources) Seafood Propensity to adverse reactions to drug 4 [employer] (4 sources) Shellfish Propensity to adverse reactions to drug 5 Hives, Rash, Shortness Of Breath, Swelling [employer] Medications Current Medications Medication Drug Class(es) Dates Sig (Normalized) Sig (Original) acetaminophen 500 mg oral tablet (4 sources) take 1 tablet by mouth every six hours as needed for pain acetaminophen (TYLENOL) 500 MG tablet Take 1 tablet by mouth every 6 hours as needed for Pain Active acetaminophen 325 mg / oxyCODONE hydrochloride 5 mg oral tablet (1 source) Opioid Agonist Start: 01-14-2025 End: 01-21-2025 oxyCODONE-acetamino phen (PERCOCET) 5-325 MG per tablet Indications: Post-op pain Take 1 tablet by mouth every 6 hours as needed for Pain for up to 10 doses. Take lowest dose possible to manage pain Max Daily Amount: 4 tablets 10 tablet 01/14/2025 01/21/2025 Active albuterol 0.833 mg/ml / ipratropium bromide 0.167 mg/ml inhalation solution (1 source) Anticholinergic, beta2-Adrenergic Agonist Start: 01-14-2025 End: 01-15-2025 take 1 dose by inhalation once as needed 1 Dose, Inhalation, ONCE PRN, 1 dose, Starting on Tue01/14/25 at 1531, Until Tue01/15/25 at 1531, Shortness of Breath, Wheezing, Initiate RT Bronchodilator Protocol: No, PACU only ALPRAZolam (10 sources) Benzodiazepine Xanax PRN Active [...] 07, 2022 12:00am busPIRone HCl Ac tive calcium chloride 0.0014 meq/ ml / potassium chloride 0.004 meq/ml / sodium chloride 0.103 meq/ml / sodium lactate 0.028 meq/ml injectable solution (2 sources) Start: 01-14-2025 IntraVENous, a t 125 mL/hr, CONTINUOUS, Starting on Tue01/14/25 at 1030, Pre-op (day of surgery) Start: 12-19-2024 IntraVENous, a t 125 mL/hr, CONTINUOUS, Starting on Tue12/19/24 at 0915, Pre-op (day of surgery) cephalexin 500 mg oral capsule (6 sources) Cephalosporin Antibacterial Start: 01-29-2025 End: 02-05-2025 take 1 capsule by mouth three times daily cephALEXin (KEFLEX) 500 MG capsule Take 1 capsule by mouth 3 times daily for 7 days 21 capsule 01/29/2025 02/05/2025 Active Start: 01-14-2025 End: 01-21-2025 cephALEXin (KEFLEX) 500 MG c apsule Take 1 capsule by mouth 3 times daily for 7 days Take for only 3 days if discharged home without martinez catheter 21 capsule 01/14/2025 01/21/2025 Active Start: 12-19-2024 take 1 capsule by [facility] twice daily cephALEXin (KEFLEX) 250 MG capsule Take 1 capsule by mouth 2 times daily 2 capsule 12/19/2024 Active Start: 09-11-2022 take 500 mg by mouth [...] a day for 30 day(s) Jun, Active 1 ml diphenhydrAMINE hydrochloride 50 mg/ml cartridge (1 source) Histamine-1 Receptor Antagonist Start: 12-19-2024 End: 12-20-2024 12.5 mg, IntraVENous, ONCE PRN, 1 dose, Starting on Tue12/19/24 at 1056, Until Sophie 12/20/24 at 1056, Itching, PACU only docusate sodium 50 mg / sennosides, snf 8.6 mg oral tablet (5 sources) Start: 12-19-2024 End: 01-14-2025 take 2 tablets by mouth once daily as needed for constipation sennosides-docusa te sodium (SENOKOT-S) 8.6-50 MG tablet Take 2 tablets by mouth nightly as needed for Constipation 60 tablet 1 01/14/2025 Active 1 ml HYDROmorphone hydrochloride 1 mg/ml cartridge (3 sources) Opioid Agonist Start: 01-14-2025 0.25 mg, IntraVENous, EVERY 5 MIN PRN, 4 doses, Starting on Tue01/14/25 at 1531, Until Discontinued, Pain Moderate (4-6), For Phase I. If Phase II oral narcotics have been administered in the last 60 minutes, do not administer IV narcotics unless specifically approved by provider., PACU only Start: 01-14-2025 0.5 mg, IntraV ENous, EVERY 5 MIN PRN, 4 doses, Starting on 01/14/25 at 1531, Until Discontinued, Pain Severe (7-10), For Phase I. If Phase II oral narcotics have been administered in the last 60 minutes, do not administer IV narcotics unless specifically approved by provider., PACU only Start: 12-19-2024 0.5 mg, IntraV ENous, EVERY 5 MIN PRN, 4 doses, Starting on Tue12/19/24 at 1056, Until Discontinued, Pain Severe (7-10), Phase I - Initial therapy for severe pain., PACU only ibuprofen 600 mg oral tablet (6 sources) Nonsteroidal Anti-inflammatory Drug Start: 01-14-2025 take 1 tablet by mouth every six hours ibuprofen (ADVIL;MOTRIN) 600 MG tablet Take 1 tablet by mouth every 6 hours 120 tablet 1 01/14/2025 Active End: 01-14-2025 ibuprofen (ADVIL;MOTRIN) 200 MG tablet Take 1 tablet by mouth 8 times daily 01/14/2025 Discontinued ibuprofen (MOTRI N) 800 mg tablet 3 (three) times a day. Active ketorolac tromethamine 10 mg oral tablet (2 sources) Nonsteroidal Anti-inflammatory Drug, Cyclooxygenase Inhibitor take 1 tablet by mouth every six hours at mealtime as needed Ketorolac Tromethamine 10 MG 1 tablet with food or milk as needed Orally every 6 hrs Active labetalol (NORMODYNE;TRANDATE) injection 10 mg (2 sources) Start: labetalol (NORMODYNE;TRANDATE ) injection 10 mg Start: 12-19-2024 labetalol (NOR MODYNE;TRANDATE) injection 10 mg lansoprazole 30 mg delayed release oral capsule (10 sources) Proton Pump Inhibitor Start: 06-29-2022 take 1 capsule by mouth every twelve hours Lansoprazole 30 MG 1 capsule before a meal Orally bid for 30 day(s) Jun, Active 10 ml lidocaine hydrochloride 10 mg/ml injection (1 source) Antiarrhythmic, Amide Local Anesthetic Start: 12-19-2024 End: 12-20-2024 take 1 dose intravenously once daily 1 mL, IntraDERmal, ONCE PRN, 1 dose, Starting on Tue12/19/24 at 0845, Until Sophie 12/20/24 at 0845, IV start, Pre-op (day of surgery) lisinopril 5 mg oral tablet (2 sources) Angiotensin Converting Enzyme Inhibitor take 1 tablet by mouth once daily lisinopril (PRINIVIL;ZESTRIL ) 5 MG tablet Take 1 tablet by mouth daily Active methocarbamol 750 mg oral tablet (2 sources) Muscle Relaxant take 1 tablet by mouth every four hours Methocarbamol 750 MG 1 tablet Orally every 4 hrs Active 2 ml metoclopramide 5 mg/ml prefilled syringe (2 sources) Dopamine-2 Receptor Antagonist Start: 01-14-2025 End: 01-15-2025 10 mg, IntraVENous, ONCE PRN, 1 dose, Starting on Tue01/14/25 at 1531, Until Tue01/15/25 at 1531, Nausea, Secondary antiemetic therapy., PACU only Start: 12-19-2024 End: 12-20-2024 10 mg, IntraVENous, ONCE PRN , 1 dose, Starting on Tue12/19/24 at 1056, Until Tue12/20/24 at 1056, Nausea, Secondary antiemetic therapy., PACU only naloxone 0.4 mg in 10 mL sodium chloride syringe (2 sources) Start: 01-14-2025 IntraVENous, P RN, Opioid Reversal, Starting on Tue01/14/25 at 1531, PRN if respiratory rate is less than 6/min and patient is difficult to arouse then notify physician STAT. Mix 9 mL of sodium chloride 0.9% with 0.4 mg (1 mL) of naloxone (NARCAN) in 10 mL syringe. (Note: dilution is 0.04 mg/mL) Give 0.08 mg (2 mL of special dilution), slow IV push, repeat up to 0.4 mg (10 mL) or until patient is responsive to physical stimulation and respiratory rate is equal to or greater than 6 breaths/min. Continue to observe, if no response within 3 minutes of administration of 0.4 mg (10 mL) total, repeat dose (0.4 mg as administered previously). Concentration 0.04 mg/mL, PACU only Start: 12-19-2024 IntraVENous, P RN, Opioid Reversal, Starting on Tue12/19/24 at 1056, PRN if respiratory rate is less than 6/min and patient is difficult to arouse then notify physician STAT. Mix 9 mL of sodium chloride 0.9% with 0.4 mg (1 mL) of naloxone (NARCAN) in 10 mL syringe. (Note: dilution is 0.04 mg/mL) Give 0.08 mg (2 mL of special dilution), slow IV push, repeat up to 0.4 mg (10 mL) or until patient is responsive to physical stimulation and respiratory rate is equal to or greater than 6 breaths/min. Continue to observe, if no response within 3 minutes of administration of 0.4 mg (10 mL) total, repeat dose (0.4 mg as administered previously). Concentration 0.04 mg/mL, PACU only ondansetron 4 mg oral tablet (6 sources) Serotonin-3 Receptor Antagonist Start: 01-14-2025 take 1 tablet by mouth every eight hours as needed for nausea ondansetron (ZOFRAN) 4 MG tablet Take 1 tablet by mouth every 8 hours as needed for Nausea or Vomiting 30 tablet 01/14/2025 Active Start: 12-19-2024 End: 01-14-2025 take 1 tablet by mouth once daily as needed for nausea ondansetron (ZOFRAN) 4 MG tablet Take 1 tablet by mouth daily as needed for Nausea or Vomiting 30 tablet 12/19/2024 01/14/2025 Discontinued Start: 12-19-2024 End: 12-20-2024 4 mg, IntraVENous, ONCE PRN, 1 dose, Starting on 12/19/24 at 1056, Until Sophie 12/20/24 at 1056, Nausea, Initial antiemetic therapy., PACU only phenazopyridine hydrochloride 200 mg delayed release oral tablet (2 sources) Start: 01-29-2025 End: 02-01-2025 take 1 tablet by mouth three times daily as needed for pain phenazopyridine (PYRIDIUM) 200 MG tablet Take 1 tablet by mouth 3 times daily as needed for Pain 9 tablet 01/29/2025 02/01/2025 Active Start: 01-14-2025 End: 01-14-2025 take 1 dose by mouth once at mealtime 100 mg, Oral, ONCE, 1 dose, On Tue01/14/25 at 1030, Take with food. May cause discoloration of urine. predniSONE 5 mg oral tablet (5 sources) Start: 08-16-2023 predniSONE 5 M G 1 tablet 3 times a day for [...] then take 1 tab for 3 days 72 hr scopolamine 0.0139 mg/hr transdermal system (1 source) Anticholinergic Start: 01-14-2025 1 patch, TransDERmal, Administer over 72 Hours, ONCE, On Tue01/14/25 at 1030, For 1 dose, delivers 1 mg over 3 days. Apply patch to hairless area behind the ear. sertraline 100 mg oral tablet (16 sources) Serotonin Reuptake Inhibitor Start: 09-07-2022 take 100 mg by mouth once daily Sertraline Active 100 MG PO Daily September 07, 2022 12:00am Start: 04-17-2020 End: 09-07-2022 take 50 mg by mouth once daily in the morning Sertraline Discontinued 50 MG PO Every morning April 17, 2020 12:00am September 07, 2022 5:51pm Zoloft Active 5 ml sodium chloride 9 mg/ml injection (13 sources) Start: 01-14-2025 5-40 mL, Intra VENous, EVERY 12 HOURS SCHEDULED (2 times per day), First dose on Tue01/14/25 at 2100, Until Discontinued, For Line Patency: Peripheral IV = 5 mL; Midline or Central Line = 10 mL/lumen. If following IV push medication, administer flush at same rate as the IV push. Flush volume is determined by type of infusion therapy being given. For non-viscous solutions use: Peripheral IV = 5 mL Midline or Central Line = 10 mL/lumen For viscous solutions (i.e. blood components, parenteral nutrition, contrast media, or after obtaining blood sample) use: Peripheral IV = 10 mL Midline or Central Line = 20 mL/lumen, PACU only Start: 01-14-2025 IntraVENous, a t 125 mL/hr, CONTINUOUS, Starting on Tue01/14/25 at 1030, Pre-op (day of surgery) Start: 01-14-2025 take 20 mL intraveno usly every hour IntraVENous, at 5-250 mL/hr, PRN, if patient receiving piggyback infusions and maintenance fluids are not ordered OR KVO fluids to protect IV site / prevent frequent line interruptions/ long duration, Starting on Tue01/14/25 at 1531, For piggyback infusion, administer at same rate as piggyback for a total of 25 mL. Enter 25 mL into dose field and piggyback rate into rate field of order. If piggyback is infusing at a rate less than 100 mL/hr, enter 25 mL into dose field and 100 mL/hr into rate field of order. For KVO fluids, enter rate of 20 mL/hr or less into rate field of order., PACU only Start: 01-14-2025 5-40 mL, Intra VENous, EVERY 12 HOURS SCHEDULED (2 times per day), First dose on Tue01/14/25 at 1030, Until Discontinued, For Line Patency: Peripheral IV = 5 mL; Midline or Central Line = 10 mL/lumen. If following IV push medication, administer flush at same rate as the IV push. Flush volume is determined by type of infusion therapy being given. For non-viscous solutions use: Peripheral IV = 5 mL Midline or Central Line = 10 mL/lumen For viscous solutions (i.e. blood components, parenteral nutrition, contrast media, or after obtaining blood sample) use: Peripheral IV = 10 mL Midline or Central Line = 20 mL/lumen, Pre-op (day of surgery) Start: 01-14-2025 5-40 mL, Intra VENous, PRN, Starting on Tue01/14/25 at 1531, Until Discontinued, Line Care, After every IV line use, For Line Patency: Peripheral IV = 5 mL; Midline or Central Line = 10 mL/lumen. If following IV push medication, administer flush at same rate as the IV push. Flush volume is determined by type of infusion therapy being given. For non-viscous solutions use: Peripheral IV = 5 mL Midline or Central Line = 10 mL/lumen For viscous solutions (i.e. blood components, parenteral nutrition, contrast media, or after obtaining blood sample) use: Peripheral IV = 10 mL Midline or Central Line = 20 mL/lumen, PACU only Start: 12-19-2024 take 1 mL intravenou sly every hour as needed IntraVENous, at 100 mL/hr, PRN, If patient receiving piggyback infusions without ordered maintenance IV fluids or with frequent/long duration piggyback infusions, Starting on Tue12/19/24 at 1056, Administer at the same rate as the piggyback being infused., PACU only Start: 12-19-2024 take 20 mL intraveno usly every hour IntraVENous, at 5-250 mL/hr, PRN, if patient receiving piggyback infusions and maintenance fluids are not ordered OR KVO fluids to protect IV site / prevent frequent line interruptions/ long duration, Starting on Tue12/19/24 at 0845, For piggyback infusion, administer at same rate as piggyback for a total of 25 mL. Enter 25 mL into dose field and piggyback rate into rate field of order. If piggyback is infusing at a rate less than 100 mL/hr, enter 25 mL into dose field and 100 mL/hr into rate field of order. For KVO fluids, enter rate of 20 mL/hr or less into rate field of order., Pre-op (day of surgery) Start: 12-19-2024 5-40 mL, Intra VENous, EVERY 12 HOURS SCHEDULED (2 times per day), First dose on Tue12/19/24 at 1115, Until Discontinued, For Line Patency: Peripheral IV = 5 mL; Midline or Central Line = 10 mL/lumen. If following IV push medication, administer flush at same rate as the IV push. Flush volume is determined by type of infusion therapy being given. For non-viscous solutions use: Peripheral IV = 5 mL Midline or Central Line = 10 mL/lumen For viscous solutions (i.e. blood components, parenteral nutrition, contrast media, or after obtaining blood sample) use: Peripheral IV = 10 mL Midline or Central Line = 20 mL/lumen, PACU only Start: 12-19-2024 5-40 mL, Intra VENous, PRN, Starting on Tue12/19/24 at 1056, Until Discontinued, Line Care, After every IV line use, For Line Patency: Peripheral IV = 5 mL; Midline or Central Line = 10 mL/lumen. If following IV push medication, administer flush at same rate as the IV push. Flush volume is determined by type of infusion therapy being given. For non-viscous solutions use: Peripheral IV = 5 mL Midline or Central Line = 10 mL/lumen For viscous solutions (i.e. blood components, parenteral nutrition, contrast media, or after obtaining blood sample) use: Peripheral IV = 10 mL Midline or Central Line = 20 mL/lumen, PACU only SUMAtriptan (4 sources) Serotonin-1b and Serotonin-1d Receptor Agonist SUMAtriptan Active tamsulosin hydrochloride 0.4 mg oral capsule (1 source) alpha-Adrenergic Jared Start: 01-21-20 End: 02-05-20 take 1 capsule by mouth once daily tamsulosin (FLOMAX) 0.4 MG capsule Indications: Postoperative examination , Urinary retention Take 1 capsule by mouth daily for 14 days 14 capsule 01/21/2025 02/04/2025 Active Completed/Discontinued Medications Medication Drug Class(es) Dates [...] Start: 02-04-2010 Rocephin 500 mg Jan, Rocephin celecoxib 100 mg oral capsule (1 source) Nonsteroidal Anti-inflammatory Drug Start: 01-14-2025 End: 01-14-2025 take 1 dose by mouth once 200 mg, Oral, ONCE, 1 dose, On Tue01/14/25 at 1030 2 ml fentaNYL 0.05 mg/ml injection (1 source) Opioid Agonist Start: 01-14-2025 End: 01-14-2025 1 dose, Starting on Tue01/14/25 at 1153, Until Tue01/14/25 at 1230, Shruthi Perry: cabinet override, Shruthi Perry: cabinet override gabapentin 300 mg oral capsule (1 source) Anti-epileptic Agent Start: 01-14-2025 End: 01-14-2025 take 1 dose by mouth once 300 mg, Oral, ONCE, 1 dose, On Tue01/14/25 at 1030 2 ml midazolam 1 mg/ml injection (2 sources) Benzodiazepine Start: 01-14-2025 End: 01-14-2025 1 dose, Starting on Tue01/14/25 at 1152, Until Tue01/14/25 at 1230, Shruthi Perry: cabinet override, Shruthi Perry: cabinet override Start: 12-19-2024 End: 12-20-2024 2 mg, IntraVENous, ONCE PRN, 1 dose, Starting on Tue12/19/24 at 1056, Until Sophie 12/20/24 at 1056, Anxiety, PACU only 1 ml morphine sulfate 2 mg/ml cartridge (1 source) Opioid Agonist Start: 12-19-2024 1 mg, IntraVENous, EVERY 5 MIN PRN, 4 doses, Starting on Tue12/19/24 at 1056, Until Discontinued, Pain Moderate (4-6), Phase I - Initial therapy for moderate pain., PACU only nicotine 2 mg chewing gum (3 sources) [...] 17, 2020 12:00am September 07, 2022 5:51pm oxyCODONE hydrochloride 5 mg oral tablet (5 sources) Opioid Agonist Start: 01-14-2025 End: 01-14-2025 take 1 dose by mouth once 5 mg, Oral, ONCE PRN, 1 dose, Starting on Tue01/14/25 at 1531, Until Tue01/14/25 at 1603, Pain Moderate (4-6), Pain Severe (7-10), PHASE II, PACU only Start: 12-19-2024 End: 12-19-2024 oxyCODONE (ROXICODONE) immed iate release tablet 5 mg Start: 09-11-2022 take 5-10 mg by mout h every six hours Oxycodone Active 5 - 10 MG PO Q6H 40 8 September 11, 2022 (10 sources) *please review for potential _update for e-prescription and drug interaction check* Not-Taking prochlorperazine 5 mg/ml injectable solution (1 source) Phenothiazine Start: 01-14-20 End: 01-14-20 25 5 mg, IntraVENous, ONCE PRN, 1 dose, Starting on Tue01/14/25 at 1531, Until Tue01/14/25 at 1719, Nausea, Initial antiemetic therapy., PACU only sucralfate 1000 mg oral tablet (13 sources) Aluminum Complex Start: 12-25-19 End: 04-13-20 take 1 tablet by mouth four times [...] Translations: [Closed fracture of lateral malleolus] Episodic Genitourinary symptoms and ill-defined conditions (12 sources) Chronic urinary bladder pain; Translations: [Chronic bladder pain] Onset: 12-13-2024 12-13-2024 Chronic Genitourinary symptoms and ill-defined conditions (9 sources) Incomplete emptying of bladder; Translations: [Retention of urine, unspecified] Onset: 12-13-2024 12-13-2024 Episodic Mood disorders (3 sources) Recurrent major [...] involving the musculoskeletal system] 09-07-2022 Episodic Other diseases of bladder and urethra (4 sources) Overactive bladder; 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] Onset: 12-13-2024 12-31-2024 Chronic Other diseases of bladder and urethra (1 source) Other neuromuscular dysfunction of bladder; 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] Onset: 12-31-2024 Chronic Other fractures (3 sources) Fracture of cervical [...] pain; Translations: [Other chronic pain] Chronic Other nervous system disorders (1 source) Postoperative pain ; Translations: [Other acute postprocedural pain] 01-14-2025 Episodic Other nervous system disorders (1 source) Other acute postprocedural pain; Translations: [Other acute postprocedural pain] Onset: 01-14-2025 Episodic Other non-traumatic joint disorders (10 sources) Acute ankle pain; Translations: [Pain in left ankle and joints of left foot] Episodic Other non-traumatic joint disorders (1 source) Pain in left shoulder Episodic Prolapse of female genital organs (19 sources) Uterovaginal prolapse, unspecified; Translations: [Cystocele] Onset: 09-12-2024 12-31-2024 Chronic Residual codes; unclassified (8 sources) Postoperative state; Translations: [Other specified postprocedural states] Onset: 12-18-2024 12-19-2024 Episodic Spondylosis; intervertebral disc disorders; other back [...] Test Name Value Interpretation Reference Range Facility Surgical Pathology Reporton 01-14-2025 Surgical Pathology Report (NOTE) Path Number: [id number] -- Diagnosis -- A. UTERUS, CERVIX, BILATERAL FALLOPIAN TUBES AND ENTEROCELE SAC, HYSTERECTOMY AND BILATERAL SALPINGECTOMY: - Unremarkable cervix. - Proliferative endometrium, negative for hyperplasia and carcinoma. - Leiomyomata. - Unremarkable bilateral fallopian tubes with benign paratubal cyst. B. VAGINAL MUCOSA, EXCISION: Unremarkable squamous mucosa. Dayana Hood M.D. Electronically Signed Out 12/30/1901/17/2025 Clinical Information Pre-Op Diagnosis: MIXED INCONTINENCE URGE AND STRESS; HYPERACTIVITY OF BLADDER; FEMALE CYSTOCELE; RECTOCELE; UTERINE PROLAPSE Operative Findings: UTERUS, CERVIX, BILATERAL FALLOPIAN TUBES AND ENTEROCELE SAC; VAGINAL MUCOSA Operation Performed: VAGINAL HYSTERECTOMY WITH BILATERAL SALPINGECTOMY AND ANTERIOR AND POSTERIOR REPAIR; CYSTOSCOPY INJECTION BULKAMID se Source of Specimen A: UTERUS, CERVIX, BILATERAL FALLOPIAN TUBES AND ENTEROCELE SAC B: VAGINAL MUCOSA Gross Description A. LYNNE GAN, UTERUS, CERVIX, BILATERAL FALLOPIAN TUBES AND ENTEROCELE SAC Received in formalin is a 201 gram, 11.9 x 6.5 x 5.5 cm uterus and cervix. The serosa is hilliard-pink, hyperemic and smooth with focal posterior disruption (anterior = blue and posterior = black). There is a hilliard-white, wrinkled ectocervical mucosa that surrounds a circular os. There is a 5.5 x 4.0 cm endometrial cavity lined by hilliard to slightly hyperemic and ragged mucosa, up to 1.0 cm in greatest thickness. The myometrium is hilliard, rubbery and trabeculated and is up to 2.0 cm. Few intramural nodules are identified up to 1.0 cm. These nodules show hilliard-white, whorled cut surfaces. No hemorrhage or necrosis is identified. The cervix is lined by hilliard, corrugated to finely lobulated and granular mucosa. Sectioning of the cervix shows hilliard, rubbery cut surfaces with few nabothian cysts. Also received within the specimen container are two detached fimbriated fallopian tubes, 6.0 cm in length x 0.7 to 1.2 cm in diameter. The fallopian tube serosa is hilliard-pink, smooth to wrinkled with a 0.7 cm paratubal cyst identified. Sectioning of the fallopian tubes shows a stellate lumen lined by hilliard-pink, soft mucosa. Lastly, received within the specimen container are two hilliard, rubbery to fatty tissue fragments, 1.8 cm and 2.0 cm. No masses or lesions are identified. Platinum Smith sections are submitted in 10c as follows: 1 anterior cervix 2 posterior cervix 3 anterior endomyometrium 4 posterior endomyometrium 5 nodules 6-7 logistics service representative one fallopian tube 8-9 logistics service representative one fallopian tube 10 additional tissue within specimen container. B. LYNNE GAN, VAGINAL MUCOSA Received in formalin is a 5.5 x 4.0 x 1.3 cm aggregate of hilliard-hood, wrinkled and rubbery vaginal mucosa. No lesions are identified. [employer] sections 1c. tm Zoila Scott/se:01/15/2025 Microscopic Description A, B. Microscopic examination performed. Processing Lab: [address] [address] Interpretation Performed at [address] [address] SURGICAL PATHOLOGY CONSULTATION Patient Name: LYNNE GAN Med Rec: [id number] [facility] ANATOMIC PATHOLOGY [address] [place] [address]. [place], [place] [address] Normal [facility] Albuminon 01-02-2025 Albumin [Mass/Vol] 4.6 g/dL 3.5 - 5.2 g/dL [facility] Albumin [Mass/Vol] 4.6 g/dL Normal 3.5-5.2 [facility] Comment on above: Performed By: #### A LB, CBC, BMP #### [employer] [address] [place] [address] Building Mover: Marcos Villatoro MD Basic Metabolic Panelon Anion gap [Moles/Vol] 12 mmol/L 9 - 16 mmol/L [facility] Calcium [Mass/Vol] 9.8 mg/dL 8.6 - 10. 4 mg/dL [facility] Chloride [Moles/Vol] 105 mmol/L 98 - 10 7 mmol/L [facility] CO2 [Moles/Vol] 24 mmol/L 20 - 31 mmol/L [facility] Creatinine [Mass/Vol] 0.7 mg/dL 0.6 - 0.9 mg/dL [facility] Est, Shayna Dowlingt Rate - PINF [facility] Comment on above: These results are not intended for use in patients <18 years of age. eGFR results are calculated without a race factor using the 2020 CKD-EPI equation. Careful clinical correlation is recommended, particularly when comparing to results calculated using previous equations. The CKD-EPI equation is less accurate in patients with extremes of muscle mass, extra-renal metabolism of creatine, excessive creatine ingestion, or following therapy that affects renal tubular secretion. Glucose [Mass/Vol] 103 mg/dL High 74 - 99 mg/dL [facility] Interpretation and review of laboratory results Abnormal [facility] Potassium [Moles/Vol] 4.1 mmol/L 3.7 - 5.3 mmol/L [facility] Sodium [Moles/Vol] 141 mmol/L 136 - 145 mmol/L [facility] Urea nitrogen [Mass/Vol] 13 mg/dL 6 - 20 mg/dL [facility] Basic Metabolic Profon 01-02 Anion gap [Moles/Vol] 12 mmol/L Normal 9-16 [facility] Comment on above: Performed By: #### A LB, CBC, BMP #### [facility] [address] [place] [address] [id number] Building Mover: Marcos Villatoro MD Calcium [Mass/Vol] 9.8 mg/dL Normal 8.6-10.4 [facility] Comment on above: Performed By: #### A LB, CBC, BMP #### [employer] [address] [place], [place] [id number] Building Mover: Marcos Villatoro MD Chloride [Moles/Vol] 105 mmol/L Normal 98-107 [facility] Comment on above: Performed By: #### A LB, CBC, BMP #### [address] [address] Building Mover: Marcos Villatoro MD CO2 [Moles/Vol] 24 mmol/L Normal 20-31 [facility] Comment on above: Performed By: #### A LB, CBC, BMP #### [address] [address] Building Mover: Marcos Villatoro MD Creatinine [Mass/Vol] 0.7 mg/dL Normal 0.6-0.9 [facility] Comment on above: Performed By: #### A LB, CBC, BMP #### [address] [address] Building Mover: Marcos Villatoro MD GFR/1.73 sq M.predicted among non-blacks MDRD (S/P/Bld) [Vol rate/Area] mL/min/{1.73_m2} Normal >60 [facility] Comment on above: Result Comment: These results are not intended for use in patients <18 years of age. eGFR results are calculated without a race factor using the 2020 CKD-EPI equation. Careful clinical correlation is recommended, particularly when comparing to results calculated using previous equations. The CKD-EPI equation is less accurate in patients with extremes of muscle mass, extra-renal metabolism of creatine, excessive creatine ingestion, or following therapy that affects renal tubular secretion. Performed By: #### A LB, CBC, BMP #### [address] [address] Building Mover: Marcos Villatoro MD Glucose [Mass/Vol] 103 mg/dL High 74-99 [facility] Comment on above: Performed By: #### A LB, CBC, BMP #### [address] [address] Building Mover: Marcos Villatoro MD Potassium [Moles/Vol] 4.1 mmol/L Normal 3.7-5.3 [facility] Comment on above: Performed By: #### A LB, CBC, BMP #### [facility] [facility] [address] [place] [address] Building Mover: Marcos Villatoro MD Sodium [Moles/Vol] 141 mmol/L Normal 136-145 [facility] Comment on above: Performed By: #### A LB, CBC, BMP #### [employer] [place], [place] [id number] Building Mover: Marcos Villatoro MD Urea nitrogen [Mass/Vol] 13 mg/dL Normal 6-20 [facility] Comment on above: Performed By: #### A LB, CBC, BMP #### [facility] [place], [place] [phone] Building Mover: Marcos Villatoro MD CBCon 01-02-2025 Erythrocyte distribution width (RBC) [Ratio] 12.4 % 11.8 - 14.4 % [facility] Hematocrit (Bld) [Volume fraction] 41.0 % 36.3 - 47.1 % [facility] Hemoglobin (Bld) [Mass/Vol] 13.3 g/dL 11.9 - 15.1 g/dL [facility] MCH (RBC) [Entitic mass] 30.0 pg 25.2 - 33.5 pg [facility] MCHC (RBC) [Mass/Vol] 32.4 g/dL 28.4 - 34.8 g/dL [facility] MCV (RBC) [Entitic vol] 92.6 fL 82.6 - 102.9 fL [facility] Nucleated RBC/100 WBC (Bld) [Ratio] 0.0 % 0.0 per 100 WBC [facility] Platelet mean volume (Bld) [Entitic vol] 11.1 fL 8.1 - 13.5 fL [facility] Platelets (Bld) [#/Vol] 261 10*3/uL [facility] RBC (Bld) [#/Vol] 4.43 10*6/uL 3.95 - 5.1 1 m/uL [facility] WBC other (Bld) [#/Vol] 7.0 [facility] Erythrocyte distribution width (RBC) [Ratio] 12.4 % Normal 11.8-14.4 [facility] Comment on above: Performed By: #### A LB, CBC, BMP #### [employer] [address] [place] [address] Building Mover: Marcos Villatoro MD Hematocrit (Bld) [Volume fraction] 41.0 % Normal 36.3-47.1 [facility] Comment on above: Performed By: #### A LB, CBC, BMP #### [employer] [address] [place] [address] Building Mover: Marcos Villatoro MD Hemoglobin (Bld) [Mass/Vol] 13.3 g/dL Normal 11.9-15.1 [facility] Comment on above: Performed By: #### A LB, CBC, BMP #### [employer] [address] [place] [address] Building Mover: Marcos Villatoro MD MCH (RBC) [Entitic mass] 30.0 pg Normal 25.2-33.5 [facility] Comment on above: Performed By: #### A LB, CBC, BMP #### [employer] [address] [place] [address] Building Mover: Marcos Villatoro MD MCHC (RBC) [Mass/Vol] 32.4 g/dL Normal 28.4-34.8 [facility] Comment on above: Performed By: #### A LB, CBC, BMP #### [employer] [address] [place] [address] Building Mover: Marcos Villatoro MD MCV (RBC) [Entitic vol] 92.6 fL Normal 82.6-102.9 [facility] Comment on above: Performed By: #### A LB, CBC, BMP #### [address] [address] Building Mover: Marcos Villatoro MD NRBC Automated 0.0 per 100 WBC Normal 0.0 [facility] Comment on above: Performed By: #### A LB, CBC, BMP #### [address] [address] Building Mover: Marcos Villaotro MD Platelet mean volume (Bld) [Entitic vol] 11.1 fL Normal 8.1-13.5 [facility] Comment on above: Performed By: #### A LB, CBC, BMP #### [address] [address] Building Mover: Marcos Villatoro MD Platelets (Bld) [#/Vol] 261 10*3/uL Normal 138-453 [facility] Comment on above: Performed By: #### A LB, CBC, BMP #### [address] [address] Building Mover: Marcos Villatoro MD RBC (Bld) [#/Vol] 4.43 10*6/uL Normal 3.95-5.11 [facility] Comment on above: Performed By: #### A LB, CBC, BMP #### [address] [address] Building Mover: Marcos Villatoro MD WBC (Bld) [#/Vol] 7.0 10*3/uL Normal 3.5-11.3 [facility] Comment on above: Performed By: #### A LB, CBC, BMP #### [address] [address] Building Mover: Marcos Villatoro MD EKG 12 LeadOrdered By: Kelli Merrill on 01-02-2025 Atrial Rate 83 BPM [employer] [facility] Informous Phone: P [place] 58 degrees [employer] Work Phone: P-R Interval 168 ms [employer] Work Phone: Q-T Interval 390 ms [employer] Work Phone: QRS Duration 88 ms [employer] Jim [employer] Work Phone: QTc Calculation (Bazett) 458 ms [employer] Work Phone: R [place] 4 degrees [facility] [employer] Work Phone: T [place] 15 degrees [employer] Work Phone: Ventricular Rate 83 BPM Jacoby lam [employer] Work Phone: [employer] Work Phone: EKG 12 Leadon 01-02-2025 Normal sinus rhythm Normal ECG No previous ECGs available [facility] Celine Latif MD - 01/02/2025 Normal sinus rhythm Normal ECG No previous ECGs available [facility] [employer] No Panel Informationon 01-02 [facility] [employer] TYPE AND SCREENon 01-02-2025 ABO and Rh group Nom (Bld) Blood group A Rh(D) positive [facility] [employer] Arm Band Number BE [id number] [facility] Blood Bank Sample Expiration 01/17/2025,2359 [facility] Blood group antibodies identified Nom Negative [facility] [employer] Type + Screenon 01-02-2025 Type + Screen Sample Expiration 01/17/2025,2359 Arm Band Number BE [id number] ABO/Rh(D) A POSITIVE Antibody Screen NEGATIVE Normal [facility] Comment on above: Performed By: #### T YS #### [address] [id number] Building Mover: Farhat Huerta MD HCG,,Ur(POC)on 11-29 HCG,,Ur(POC) Negative Normal NEG [facility] Comment on above: Result Comment: Spec imens with hCG levels near the threshold of the test (25 mIU/mL) may give a negative or indeterminate result. In such cases, another test should be performed with a new specimen in 48-72 hours. If early is suspected clinically in this setting, correlation with quantitative serum b-hCG level is suggested. TESTING PERFORMED AT [address] [address] POCT urine pregnancyon 12-19 Beta HCG ( test) Ql (U) Negative NEGATIVE [facility] Comment on above: Specimens with hCG l evels near the threshold of the test (25 mIU/mL) may give a negative or indeterminate result. In such cases, another test should be performed with a new specimen in 48-72 hours. If early is suspected clinically in this setting, correlation with quantitative serum b-hCG level is suggested. TESTING PERFORMED AT [address] [address] [facility] XR cerv spine AP/LAT/FLX/EXT on 02-17-2023 XR cerv spine AP/LAT/FLX/EXT [facility] [place] [address] XRay Report Signed Patient: Lynne Gan MR#: [id number] : 1985 Acct:[id number] Age/Sex: 37 / F ADM Date: 02/17/23 Loc: XD Room: Type: [facility] Attending Dr: Keron Carson MD Copies to: [...] Candido Sanchez M.D.02/17/2023 3:09 PM Dictation Location: RADIO-PC-12 Transcribed By: PWS 02/17/23 150 Dictated By: Candido Sanchez II, MD 02/17/23 150 Signed By: 02/17/23 1509 [facility] XR cervical spine 2Von 12-21 XR cervical spine 2V [facility] [place] [address] XRay Report Signed Patient: Lynne Gan MR#: [id number] : 1985 Acct:[id number] Age/Sex: 37 / F ADM Date: 12/21/22 Loc: XD Room: Type: [facility] Attending Dr: Keron Carson MD Copies to: [...] 3:34 PM Dictation Location: RADIO-PC-12 Transcribed By: PWS 12/21/22 1534 Dictated By: Bennett Delaney Jr, DO 12/21/22 153 Signed By: 12/21/22 153 [facility] XR cervical spine 2Von 10-01 XR cervical spine 2V [facility] [place] [address] [place] [address] XRay Report Signed Patient: Lynne Gan MR#: [id number] : 1985 Acct:[id number] Age/Sex: 37 / F ADM Date: 10/01/22 Loc: XD Room: Type: [facility] Attending Dr: Keron Carson MD Copies to: [...] COMPLICATION. Impression dictated by: Bennett Delaney Jr., D.OMaldonado10/01/2022 4:23 PM Dictation Location: [place] [address] Transcribed By: [facility] 10/01/221622 Dictated By: Bennett Delaney Jr, DO 10/01/221622 Signed By: 10/01/221622 [facility] Basic Metabolic Panelon 10- Anion gap [Moles/Vol] 8.5 mmol/L Normal 6.0-15.0 [facility] Comment on above: Performed By: #### M G, SCAN CBC, BMP #### [facility] [address] [place] [id number] [place] Calcium [Mass/Vol] 8.7 mg/dL Normal 8.2-10.2 [facility] Comment on above: Performed By: #### M G, SCAN CBC, BMP #### [facility] [address] [place] [address] [place] Chloride [Moles/Vol] 106 mmol/L Normal 95-114 [facility] Comment on above: Performed By: #### M G, SCAN CBC, BMP #### [facility] [address] [place] [address] [place] CO2 [Moles/Vol] 24.4 mmol/L Normal 22.0-30.0 [facility] Comment on above: Performed By: #### M G, SCAN CBC, BMP #### [facility] [address] Creatinine [Mass/Vol] 0.65 mg/dL Normal 0.44-1.03 [facility] Comment on above: Performed By: #### M G, SCAN CBC, BMP #### [facility] [address] [place] [address] [place] Creatinine Clr Calc Pharmacy 157.41 [facility] Comment on above: Performed By: #### M G, SCAN CBC, BMP #### [facility] [address] Estimated GFR ( Cinthya > 60 [facility] Comment on above: Result Comment: GFR estimated reference range: According to KDOQI guidelines, <60 ml/min/1.73m2 is sufficient to diagnose a patient with chronic kidney disease. Performed By: #### M G, SCAN CBC, BMP #### [facility] [address] Estimated GFR (Non- Am > 60 [facility] Comment on above: Performed By: #### M G, SCAN CBC, BMP #### [facility] [address] [place] [address] [place] Glucose [Mass/Vol] 167 mg/dL High 70-100 [facility] Comment on above: Result Comment: [place] Glucose Reference Range is dependent on time and content of last meal. Glucose of more than 200 mg/dL in a nonstressed, ambulatory subject supports the diagnosis of Diabetes Mellitus. ADA recommended reference range Performed By: #### M G, SCAN CBC, BMP #### [facility] [address] Potassium [Moles/Vol] 3.9 mmol/L Normal 3.5-5.1 [facility] Comment on above: Performed By: #### M G, SCAN CBC, BMP #### [facility] [address] [place] [address] [place] Sodium [Moles/Vol] 135 mmol/L Low 136-146 [facility] Comment on above: Performed By: #### M G, SCAN CBC, BMP #### [facility] [address] [place] [address] [place] Urea nitrogen [Mass/Vol] 13 mg/dL Normal 9-23 [facility] Comment on above: Performed By: #### M G, SCAN CBC, BMP #### [facility] [address] [place] [address] [place] Basophils Auto (Bld) [#/Vol] Ordered By: Eladio Mayo on 09-11-2022 Basophils (Bld) [#/Vol] 0.0 10*3/uL 0.0-0.2 [facility] Basophils/100 WBC Auto (Bld) Ordered By: Eladio Mayo on 09-11-2022 Basophils/100 WBC (Bld) 0.1 % . [facility] Creatinine and Glomerular fi ltration rate.predicted panel (S/P/Bld)Ordered By: Eladio Mayo on 09-11-2022 Creatinine [Mass/Vol] 0.65 mg/dL 0.44-1.03 [facility] Eosinophils Auto (Bld) [#/Vo l]Ordered By: Eladio Mayo on 09-11-2022 Eosinophils (Bld) [#/Vol] 0.0 10*3/uL 0.0-0.45 [facility] Eosinophils/100 WBC Auto (Bl d)Ordered By: Eladio Mayo on 09-11-2022 Eosinophils/100 WBC (Bld) 0.0 % . [facility] Erythrocyte distribution wid th Auto (RBC) [Ratio]Ordered By: Eladio Mayo on 09-11-2022 Erythrocyte distribution width (RBC) [Ratio] 12.4 % 11.9-15.3 [facility] Estimated glomerular filtrat ion rate (GFR) non- AmericanOrdered By: Eladio Mayo on 10-15-2022 GFR/1.73 sq M.predicted among non-blacks MDRD (S/P/Bld) [Vol rate/Area] > 60 mL/Min [facility] Hematocrit Auto (Bld) [Volum e fraction]Ordered By: Eladio Mayo on 09-11-2022 Hematocrit (Bld) [Volume fraction] 39.4 % 34.0-46.4 [facility] Hemoglobin [Mass/volume] in BloodOrdered By: Eladio Mayo on 09-11-2022 Hemoglobin (Bld) [Mass/Vol] 13.0 g/dL 11.8-15.4 [facility] Laboratory - Chemistry and C hemistry - challengeOrdered By: Eladio Mayo on 09-11-2022 Magnesium [Mass/Vol] 2.2 mg/dL 1.6-2.6 [facility] Laboratory - Hematology and Cell countsOrdered By: Eladio Mayo on 09-11-2022 Nucleated RBC/100 WBC (Bld) [Ratio] 0.0 % 0-0.5 [facility] Leukocytes [#/volume] in Blo od by Automated countOrdered By: Eladio Mayo on 09-11-2022 WBC (Bld) [#/Vol] 13.2 10*3/uL 4.5-11.0 [facility] Lymphocytes Auto (Bld) [#/Vo l]Ordered By: Eladio Mayo on 09-11-2022 Lymphocytes (Bld) [#/Vol] 0.9 10*3/uL 1.00-4.8 [facility] Lymphocytes/100 WBC Auto (Bl d)Ordered By: Eladio Mayo on 09-11-2022 Lymphocytes/100 WBC (Bld) 6.9 % . [facility] MCH Auto (RBC) [Entitic mass ]Ordered By: Eladio Mayo on 09-11-2022 MCH (RBC) [Entitic mass] 30.5 pg 24.7-34.3 [facility] MCHC Auto (RBC) [Mass/Vol]Or dered By: Eladio Mayo on 09-11-2022 MCHC (RBC) [Mass/Vol] 33.0 g/dL 32.0-35.0 [facility] MCV Auto (RBC) [Entitic vol] Ordered By: Eladio Mayo on 09-11-2022 MCV (RBC) [Entitic vol] 92.4 fL 80-100 [facility] Magnesiumon 09-11-2022 Magnesium [Mass/Vol] 2.2 mg/dL Normal 1.6-2.6 [facility] Comment on above: Result Comment: PERF ORMED BY: [facility] [address] [place] [address] PATHOLOGIST SPECIAL DEPUTY SHERIFF SLIM SERRATO M.D. Performed By: #### M G, SCAN CBC, BMP #### [facility] [address] Monocytes Auto (Bld) [#/Vol] Ordered By: Eladio Mayo on 09-11-2022 Monocytes (Bld) [#/Vol] 0.9 10*3/uL 0.0-0.8 [facility] Monocytes/100 WBC Auto (Bld) Ordered By: Eladiotiesha Mayo on 09-11-2022 Monocytes/100 WBC (Bld) 6.4 % . [facility] Neutrophils Auto (Bld) [#/Vo l]Ordered By: Eladiotiesha Mayo on 09-11-2022 Neutrophils (Bld) [#/Vol] 11.4 10*3/uL 1.8-7.7 [facility] Neutrophils/100 WBC Auto (Bl d)Ordered By: Eladio Mayo on 09-11-2022 Neutrophils/100 WBC (Bld) 86.6 % . [facility] No Panel InformationOrdered By: Eladiotiesha Mayo on 09-11-2022 Estimated GFR () > 60 mL/Min [facility] Comment on above: GFR estimated refere nce range: According to KDOQI guidelines, <60 ml/min/1.73m2 is sufficient to diagnose a patient with chronic kidney disease. Pharmacy Creatinine Clearance (Chem 157.41 [facility] Platelet Estimate Normal Normal [facility] Platelet Morphology Comment Normal Normal [facility] Platelet mean volume Auto (B ld) [Entitic vol]Ordered By: Eladio Mayo on 09-11-2022 Platelet mean volume (Bld) [Entitic vol] 9.0 fL 6.3-10.7 [facility] Platelets Auto (Bld) [#/Vol] Ordered By: Eladio Mayo on 09-11-2022 Platelets (Bld) [#/Vol] 237 10*3/uL 150-450 [facility] RBC Auto (Bld) [#/Vol]Ordere d By: Eladio Mayo on 09-11-2022 RBC (Bld) [#/Vol] 4.27 10*6/uL 3.60-5.00 [facility] RBC morphologyOrdered By: Fr blaise Mayo on 09-11-2022 RBC morphology finding Nom (Bld) Normal [facility] Scan and CBCon 09-11-2022 Basophils (Bld) [#/Vol] 0.0 10*3/uL Normal 0.0-0.2 [facility] Comment on above: Performed By: #### M G, SCAN CBC, BMP #### [facility] [address] [place] [address] [place] Basophils/100 WBC (Bld) 0.1 % Normal . [facility] Comment on above: Performed By: #### M G, SCAN CBC, BMP #### [facility] [address] [place] [address] [place] Eosinophils (Bld) [#/Vol] 0.0 10*3/uL Normal 0.0-0.45 [facility] Comment on above: Performed By: #### M G, SCAN CBC, BMP #### [facility] [address] [place] [address] [place] Eosinophils/100 WBC (Bld) 0.0 % Normal . [facility] Comment on above: Performed By: #### M G, SCAN CBC, BMP #### [facility] [address] [place] [id number] [place] Erythrocyte distribution width (RBC) [Ratio] 12.4 % Normal 11.9-15.3 [facility] Comment on above: Performed By: #### M G, SCAN CBC, BMP #### [facility] [address] Hematocrit (Bld) [Volume fraction] 39.4 % Normal 34.0-46.4 [facility] Comment on above: Performed By: #### M G, SCAN CBC, BMP #### [facility] [address] Hemoglobin (Bld) [Mass/Vol] 13.0 g/dL Normal 11.8-15.4 [facility] Comment on above: Performed By: #### M G, SCAN CBC, BMP #### [address] Lymphocytes (Bld) [#/Vol] 0.9 10*3/uL Low 1.00-4.8 [facility] Comment on above: Performed By: #### M G, SCAN CBC, BMP #### [address] Lymphocytes/100 WBC (Bld) 6.9 % Normal . [facility] Comment on above: Performed By: #### M G, SCAN CBC, BMP #### [address] MCH (RBC) [Entitic mass] 30.5 pg Normal 24.7-34.3 [facility] Comment on above: Performed By: #### M G, SCAN CBC, BMP #### [address] MCV (RBC) [Entitic vol] 92.4 fL Normal 80-100 [facility] Comment on above: Performed By: #### M G, SCAN CBC, BMP #### [address] Mean Corpuscular HGB Conc 33.0 g/dL Normal 32.0-35.0 [facility] Comment on above: Performed By: #### M G, SCAN CBC, BMP #### [address] Monocytes (Bld) [#/Vol] 0.9 10*3/uL High 0.0-0.8 [facility] Comment on above: Performed By: #### M G, SCAN CBC, BMP #### [address] Monocytes/100 WBC (Bld) 6.4 % Normal . [facility] Comment on above: Performed By: #### M G, SCAN CBC, BMP #### [facility] [address] [place] [address] [place] Neutrophils (Bld) [#/Vol] 11.4 10*3/uL High 1.8-7.7 [facility] Comment on above: Performed By: #### M G, SCAN CBC, BMP #### [address] Neutrophils/100 WBC (Bld) 86.6 % Normal . [facility] Comment on above: Performed By: #### M G, SCAN CBC, BMP #### [address] Nucleated RBC/100 WBC (Bld) [Ratio] 0.0 % Normal 0-0.5 [facility] Comment on above: Performed By: #### M G, SCAN CBC, BMP #### [address] Platelet Estimate Normal Normal Normal [facility] Comment on above: Performed By: #### M G, SCAN CBC, BMP #### [facility] [address] [place] [address] Platelet mean volume (Bld) [Entitic vol] 9.0 fL Normal 6.3-10.7 [facility] Comment on above: Performed By: #### M G, SCAN CBC, BMP #### [facility] [address] [place] [address] Platelet Morphology Normal Normal Normal [facility] Comment on above: Result Comment: PERF ORMED BY: [place] [address] PATHOLOGIST SPECIAL DEPUTY SHERIFF SLIM SERRATO M.D. Performed By: #### M G, SCAN CBC, BMP #### [facility] [address] Platelets (Bld) [#/Vol] 237 10*3/uL Normal 150-450 [facility] Comment on above: Performed By: #### M G, SCAN CBC, BMP #### [facility] [address] RBC (Bld) [#/Vol] 4.27 10*6/uL Normal 3.60-5.00 [facility] Comment on above: Performed By: #### M G, SCAN CBC, BMP #### [facility] [address] RBC morphology finding Nom (Bld) Normal Normal [facility] Comment on above: Performed By: #### M G, SCAN CBC, BMP #### [facility] [address] WBC (Bld) [#/Vol] 13.2 10*3/uL High 4.5-11.0 [facility] Comment on above: Performed By: #### M G, SCAN CBC, BMP #### [facility] [address] Serum or plasma anion gap de terminationOrdered By: Eladio Mayo on 09-11-2022 Anion gap [Moles/Vol] 8.5 mmol/L 6.0-15.0 [facility] Serum or plasma calcium elias urement (mass/volume)Ordered By: Eladio Mayo on 09-11-2022 Calcium [Mass/Vol] 8.7 mg/dL 8.2-10.2 [facility] Serum or plasma chloride dennise surement (moles/volume)Ordered By: Eladio Mayo on 09-11-2022 Chloride [Moles/Vol] 106 mmol/L 95-114 [facility] Serum or plasma glucose elias urement (mass/volume)Ordered By: Eladio Mayo on 09-11-2022 Glucose [Mass/Vol] 167 mg/dL 70-100 [facility] Comment on above: ADA recommended refe rence rangeRandom Glucose Reference Range is dependent on time and content of last meal. Glucose of more than 200 mg/dL in a nonstressed, ambulatory subject supports the diagnosis of Diabetes Mellitus. Serum or plasma potassium me asurement (moles/volume)Ordered By: Eladio Mayo on 09-11-2022 Potassium [Moles/Vol] 3.9 mmol/L 3.5-5.1 [facility] Serum or plasma sodium measu rement (moles/volume)Ordered By: Eladio Mayo on 09-11-2022 Sodium [Moles/Vol] 135 mmol/L 136-146 [facility] Serum or plasma total carbon dioxide measurement (moles/volume)Ordered By: Eladio Mayo on 09-11-2022 CO2 [Moles/Vol] 24.4 mmol/L 22.0-30.0 [facility] Serum or plasma urea nitroge n measurement (mass/volume)Ordered By: Eladio Mayo on 09-11-2022 Urea nitrogen [Mass/Vol] 13 mg/dL 08-20 [facility] Activated partial thrombopla stin time (aPTT) in platelet poor plasma by coagulation aOrdered By: Gt Haro on 09-10-2022 aPTT Coag (PPP) [Time] 24.5 s 25.1-36.5 [facility] Basic Metabolic Panelon 08-28 Anion gap [Moles/Vol] 12.7 mmol/L Normal 6.0-15.0 [facility] Comment on above: Performed By: #### P P, BMP, CBCNO #### [facility] 1111 [place] [address] [place] Calcium [Mass/Vol] 9.1 mg/dL Normal 8.2-10.2 [facility] Comment on above: Performed By: #### P P, BMP, CBCNO #### [facility] 1111 [place] [id number] [place] Chloride [Moles/Vol] 103 mmol/L Normal 95-114 [facility] Comment on above: Performed By: #### P P, BMP, CBCNO #### [facility] [address] CO2 [Moles/Vol] 24.2 mmol/L Normal 22.0-30.0 [facility] Comment on above: Performed By: #### P P, BMP, CBCNO #### [facility] [address] Creatinine [Mass/Vol] 0.71 mg/dL Normal 0.44-1.03 [facility] Comment on above: Performed By: #### P P, BMP, CBCNO #### [place] [address] [place] Creatinine Clr Calc Pharmacy 140.72 [facility] Comment on above: Result Comment: PERF ORMED BY: [place] [address] PATHOLOGIST SPECIAL DEPUTY SHERIFF SLIM SERRATO M.D. Performed By: #### P P, BMP, CBCNO #### [address] Estimated GFR ( Cinthya > 60 [facility] Comment on above: Result Comment: GFR estimated reference range: According to KDOQI guidelines, <60 ml/min/1.73m2 is sufficient to diagnose a patient with chronic kidney disease. Performed By: #### P P, BMP, CBCNO #### [address] Estimated GFR (Non- Am > 60 [facility] Comment on above: Performed By: #### P P, BMP, CBCNO #### [address] Glucose [Mass/Vol] 120 mg/dL High 70-100 [facility] Comment on above: Result Comment: [place] Glucose Reference Range is dependent on time and content of last meal. Glucose of more than 200 mg/dL in a nonstressed, ambulatory subject supports the diagnosis of Diabetes Mellitus. ADA recommended reference range Performed By: #### P P, BMP, CBCNO #### [place] [address] [place] Potassium [Moles/Vol] 3.9 mmol/L Normal 3.5-5.1 [facility] Comment on above: Performed By: #### P P, BMP, CBCNO #### [facility] [address] [place] [address] Sodium [Moles/Vol] 136 mmol/L Normal 136-146 [facility] Comment on above: Performed By: #### P P, BMP, CBCNO #### [facility] [address] [place] [address] Urea nitrogen [Mass/Vol] 13 mg/dL Normal 9-23 [facility] Comment on above: Performed By: #### P P, BMP, CBCNO #### [address] Coagulation Profileon 2021 aPTT Coag (Bld) [Time] 24.5 s Low 25.1-36.5 [facility] Comment on above: Result Comment: PERF ORMED BY: [place] [address] PATHOLOGIST SPECIAL DEPUTY SHERIFF SLIM SERRATO M.D. Performed By: #### P P, BMP, CBCNO #### [address] INR Coag (PPP) [Relative time] 1.1 {INR} Normal [facility] Comment on above: Result Comment: INR Therapeutic [...] By: #### P P, BMP, CBCNO #### [address] PT Coag (PPP) [Time] 12.2 s Normal 9.0-12.9 [facility] Comment on above: Performed By: #### P P, BMP, CBCNO #### [address] Hemogram CBC Without Diffon 09-10-2022 Erythrocyte distribution width (RBC) [Ratio] 12.4 % Normal 11.9-15.3 [facility] Comment on above: Performed By: #### P P, BMP, CBCNO #### [address] Hematocrit (Bld) [Volume fraction] 39.8 % Normal 34.0-46.4 [facility] Comment on above: Performed By: #### P P, BMP, CBCNO #### [address] Hemoglobin (Bld) [Mass/Vol] 13.3 g/dL Normal 11.8-15.4 [facility] Comment on above: Performed By: #### P P, BMP, CBCNO #### [address] MCH (RBC) [Entitic mass] 31.0 pg Normal 24.7-34.3 [facility] Comment on above: Performed By: #### P P, BMP, CBCNO #### [address] MCV (RBC) [Entitic vol] 92.9 fL Normal 80-100 [facility] Comment on above: Performed By: #### P P, BMP, CBCNO #### [address] Mean Corpuscular HGB Conc 33.4 g/dL Normal 32.0-35.0 [facility] Comment on above: Performed By: #### P P, BMP, CBCNO #### [address] Platelet mean volume (Bld) [Entitic vol] 8.9 fL Normal 6.3-10.7 [facility] Comment on above: Result Comment: PERF ORMED BY: [place] [address] PATHOLOGIST SPECIAL DEPUTY SHERIFF JIANLAN SUN M.D. Performed By: #### P P, BMP, CBCNO #### [address] Platelets (Bld) [#/Vol] 283 10*3/uL Normal 150-450 [facility] Comment on above: Performed By: #### P P, BMP, CBCNO #### [address] RBC (Bld) [#/Vol] 4.29 10*6/uL Normal 3.60-5.00 [facility] Comment on above: Performed By: #### P P, BMP, CBCNO #### [address] WBC (Bld) [#/Vol] 11.6 10*3/uL Normal 3.8-11.6 [facility] Comment on above: Performed By: #### P P, BMP, CBCNO #### [address] 09-10-2022 L ------ Specimen: [id number] Received: 09/10/22 Status: PATO [place] Num: [id number] Spec Type: Surgical Subm Dr: Keron Carson MD Tissues: A Disc - Intervertebral/Lumbar/Cerv ical (ANTERIOR NECK) Procedures: HE Stain, Gross/Micro L3 Age/ Patient Sex Location Account Attending Physician Lynne Abdi Leonardo 36/F 4N [id number] Eladio Mayo MD SPEC NUM: [id number] RECD: 09/10/22 STATUS: PATO SAHU NUM: [id number] ESAU: 09/10/22 [facility] DR: Keron Carson MD ENTERED: 09/10/22 [facility] DR: ROBSON TYPE: Surgical DEPT: S ORDERED: [...] x 2 by 1 cm in aggregates. Platinum Smith sections submitted in one cassette A1. CPT Codes 94562 Specimen: [id number] Received: 09/10/22 Status: PATO [place] Num: [id number] Spec Type: Surgical Subm Dr: Keron Carson MD Tissues: A Disc - Intervertebral/Lumbar/Cerv ical (ANTERIOR NECK) Procedures: HE Stain, Gross/Micro L3 Patient: Lynne Abdi [id number] (Continued) Signed (signature on file) Tasneem Bacon MD 09/14/22 1521 Normal [facility] Laboratory - CoagulationOrde red By: Gt Haro on 09-10-2022 PT Coag (PPP) [Time] 12.2 s 9.0-12.9 [facility] Platelet poor plasma interna tional normalized ratio (INR) by coagulation assay (relatOrdered By: Gt Haro on 09-10-2022 INR Coag (PPP) [Relative time] 1.1 {INR} [facility] Comment on above: INR Therapeutic Rang e [...] spine 1Von 09-10 XR cervical spine 1V [facility] Main [place] [id number] XRay Report Signed Patient: Lynne Abdi MR#: [id number] : 1985 Acct:[id number] Age/Sex: 36 / F ADM Date: 09/07/22 Loc: 4N Room: [address] [place] [address] Type: ADM IN Attending Dr: Eladio Mayo MD Copies to: MD Eladio Samaniego MD Ordering Provider: Keron Carson MD Date of Service: 09/10/22 XR/XR cervical spine 1V: . Intraoperative study. Reason for exam: ACF C5-C7. FINDINGS: One image was obtained intraoperatively. 30 seconds of fluoroscopic time was utilized. XR/XR cervical spine 1V IMPRESSION: Intraoperative study. Impression dictated by: Bennett Delaney Jr., D.O.09/10/2022 12:21 PM Dictation Location: [place] [address] Transcribed By: [facility] 09/10/22 122 Dictated By: Bennett Delaney Jr, DO 09/10/22 1221 Signed By: 09/10/22 1221 Normal [facility] HCG ( test) IA.rapi d Ql (U)Ordered By: Jayson Smith on 09-09-2022 HCG ( test) Ql (U) Negative [facility] HCG,Urineon 09-09-2022 Beta HCG ( test) Ql (U) Negative Normal [facility] Comment on above: Order Comment: Comme nt To be completed this evening prior to OR in the AM Result Comment: PERF ORMED BY: [address] [address] PATHOLOGIST SPECIAL DEPUTY SHERIFF SLMI SERRATO M.D. Performed By: #### U HCG #### [facility] [address] Basic Metabolic Panelon 08-28 Anion gap [Moles/Vol] 15.2 mmol/L High 6.0-15.0 [facility] Comment on above: Performed By: #### M G, CBC, BMP, PP ####[place] [address] [address] Calcium [Mass/Vol] 9.2 mg/dL Normal 8.2-10.2 [facility] Comment on above: Performed By: #### M G, CBC, BMP, PP ####[address] Chloride [Moles/Vol] 104 mmol/L Normal 95-114 [facility] Comment on above: Performed By: #### M G, CBC, BMP, PP ####[address] CO2 [Moles/Vol] 21.8 mmol/L Low 22.0-30.0 [facility] Comment on above: Performed By: #### M G, CBC, BMP, PP ####[address] Creatinine [Mass/Vol] 0.75 mg/dL Normal 0.44-1.03 [facility] Comment on above: Performed By: #### M G, CBC, BMP, PP ####[address] Creatinine Clr Calc Pharmacy 133.48 [facility] Comment on above: Performed By: #### M G, CBC, BMP, PP ####[address] Estimated GFR ( Cinthya > 60 [facility] Comment on above: Result Comment: GFR estimated reference range: According to KDOQI guidelines, <60 ml/min/1.73m2 is sufficient to diagnose a patient with chronic kidney disease. Performed By: #### M G, CBC, BMP, PP ####[place] [address] [place] [address] [facility] Estimated GFR (Non- Am > 60 Normal [facility] Comment on above: Performed By: #### M G, CBC, BMP, PP ####[place] [address] [place] [address] [facility] Glucose [Mass/Vol] 155 mg/dL High 70-100 [facility] Comment on above: Result Comment: [facility] Glucose Reference Range is dependent on time and content of last meal. Glucose of more than 200 mg/dL in a nonstressed, ambulatory subject supports the diagnosis of Diabetes Mellitus. ADA recommended reference range Performed By: #### M G, CBC, BMP, PP ####[place] [address] [place] [address] [facility] Potassium [Moles/Vol] 4.0 mmol/L Normal 3.5-5.1 [facility] Comment on above: Performed By: #### M G, CBC, BMP, PP ####[place] [id number] [facility] Sodium [Moles/Vol] 137 mmol/L Normal 136-146 [facility] Comment on above: Performed By: #### M G, CBC, BMP, PP ####[place] [id number] [facility] Urea nitrogen [Mass/Vol] 10 mg/dL Normal 9-23 [facility] Comment on above: Performed By: #### M G, CBC, BMP, PP ####[place] [address] [place] [address] [facility] Coagulation Profileon 2021 aPTT Coag (Bld) [Time] 25.3 s Normal 25.1-36.5 [facility] Comment on above: Result Comment: PERF ORMED BY: [facility] [address] [place] [id number] PATHOLOGIST SPECIAL DEPUTY SHERIFF SLIM SERRATO M.D. Performed By: #### M G, CBC, BMP, PP ####[address] INR Coag (PPP) [Relative time] 1.0 {INR} Normal [facility] Comment on above: Result Comment: INR Therapeutic [...] By: #### M G, CBC, BMP, PP ####[address] PT Coag (PPP) [Time] 11.7 s Normal 9.0-12.9 [facility] Comment on above: Performed By: #### M G, CBC, BMP, PP ####[address] Complete Blood Count Auto Di ffon 09-08-2022 Basophils (Bld) [#/Vol] 0.0 10*3/uL Normal 0.0-0.2 [facility] Comment on above: Result Comment: PERF ORMED BY: [address] [place] [address] PATHOLOGIST SPECIAL DEPUTY SHERIFF SLIM SERRATO M.D. Performed By: #### M G, CBC, BMP, PP ####[address] Basophils/100 WBC (Bld) 0.1 % Normal . [facility] Comment on above: Performed By: #### M G, CBC, BMP, PP ####[address] Eosinophils (Bld) [#/Vol] 0.0 10*3/uL Normal 0.0-0.45 [facility] Comment on above: Performed By: #### M G, CBC, BMP, PP ####[address] Eosinophils/100 WBC (Bld) 0.0 % Normal . [facility] Comment on above: Performed By: #### M G, CBC, BMP, PP ####[address] Erythrocyte distribution width (RBC) [Ratio] 12.6 % Normal 11.9-15.3 [facility] Comment on above: Performed By: #### M G, CBC, BMP, PP ####[address] Hematocrit (Bld) [Volume fraction] 39.7 % Normal 34.0-46.4 [facility] Comment on above: Performed By: #### Jessica Pillai, CBC, BMP, PP ####[address] Hemoglobin (Bld) [Mass/Vol] 13.1 g/dL Normal 11.8-15.4 [facility] Comment on above: Performed By: #### Jessica G, CBC, BMP, PP ####[address] Lymphocytes (Bld) [#/Vol] 1.1 10*3/uL Normal 1.00-4.8 [facility] Comment on above: Performed By: #### Jessica G, CBC, BMP, PP ####[address] Lymphocytes/100 WBC (Bld) 5.7 % Normal . [facility] Comment on above: Performed By: #### M G, CBC, BMP, PP ####[address] MCH (RBC) [Entitic mass] 30.4 pg Normal 24.7-34.3 [facility] Comment on above: Performed By: #### M G, CBC, BMP, PP ####[address] MCV (RBC) [Entitic vol] 92.0 fL Normal 80-100 [facility] Comment on above: Performed By: #### M G, CBC, BMP, PP ####[address] Mean Corpuscular HGB Conc 33.1 g/dL Normal 32.0-35.0 [facility] Comment on above: Performed By: #### M G, CBC, BMP, PP ####[address] Monocytes (Bld) [#/Vol] 0.4 10*3/uL Normal 0.0-0.8 [facility] Comment on above: Performed By: #### M G, CBC, BMP, PP ####[address] Monocytes/100 WBC (Bld) 2.1 % Normal . [facility] Comment on above: Performed By: #### M G, CBC, BMP, PP ####[address] Neutrophils (Bld) [#/Vol] 17.9 10*3/uL High 1.8-7.7 [facility] Comment on above: Performed By: #### M G, CBC, BMP, PP ####[address] Neutrophils/100 WBC (Bld) 92.1 % Normal . [facility] Comment on above: Performed By: #### M G, CBC, BMP, PP ####[address] Nucleated RBC/100 WBC (Bld) [Ratio] 0.0 % Normal 0-0.5 [facility] Comment on above: Performed By: #### M G, CBC, BMP, PP ####[address] Platelet mean volume (Bld) [Entitic vol] 9.3 fL Normal 6.3-10.7 [facility] Comment on above: Performed By: #### M G, CBC, BMP, PP ####[place] [id number] [facility] Platelets (Bld) [#/Vol] 254 10*3/uL Normal 150-450 [facility] Comment on above: Performed By: #### M G, CBC, BMP, PP ####[place] [address] [address] RBC (Bld) [#/Vol] 4.31 10*6/uL Normal 3.60-5.00 [facility] Comment on above: Performed By: #### M G, CBC, BMP, PP ####[place] [address] [place] [id number] [facility] WBC (Bld) [#/Vol] 19.5 10*3/uL High 4.5-11.0 [facility] Comment on above: Performed By: #### M G, CBC, BMP, PP ####[address] Magnesiumon 09-08-2022 Magnesium [Mass/Vol] 2.2 mg/dL Normal 1.6-2.6 [facility] Comment on above: Result Comment: PERF ORMED BY: [place] [address] PATHOLOGIST SPECIAL DEPUTY SHERIFF SLIM SERRATO M.D. Performed By: #### M G, CBC, BMP, PP ####[place] [address] [place] [address] [facility] XR cervical spine w flex/ext on 09-08-2022 XR cervical spine w flex/ext [facility] [place] [address] XRay Report Signed Patient: Lynne Abdi MR#: [id number] : 1985 Acct:[id number] Age/Sex: 36 / F ADM Date: 09/07/22 Loc: Room: 3Y2198-4 Type: ADM IN Attending Dr: Gt Haro [...] Delaney Jr., D.OMaldonado09/08/2022 10:46 AM Dictation Location: [place] [address] Transcribed By: [facility] 09/08/22 1046 Dictated By: Bennett Delaney Jr, DO 09/08/22 1043 Signed By: 09/08/22 1046 [facility] Coding Summaryon 11-05-2019 Coding Summary CODING DATE: 019 [facility] STATUS: Home PAYOR: Self Pay APC DESCRIPTION [...] Date Saved: 10/31/2019 08:13 am [facility] C Urineon 10-31-2019 C Urine No growth at 2 days. Normal [facility] Comment on above: Performed By: #### 1 [id number], [id number], 9625129, [id number], 0397783, [id number] #### [facility] (DEFAULT) [address] [place] [address] Coding Summaryon 10-31-2019 Coding Summary CODING DATE: 019 FINAL [facility] STATUS: Home PAYOR: Self Pay ADMIT [...] Roy Date Saved: 10/31/2019 08:16 am Normal [facility] .Auto Diff 10-29-2019 Auto [place] % 4 % Normal 12-09 [facility] Comment on above: Performed By: #### 1 [id number], [id number], [id number], 64299333, 4703221, [id number] #### [facility] (DEFAULT) [address] [place] [address] Baso Abs# 0.0 x10 Normal 0.0-0.2 [facility] Comment on above: Performed By: #### 1 [id number], [id number], 9878368, 95034114, 0303330, [id number] #### [facility] (DEFAULT) [address] [place] [address] Basophils/100 WBC (Bld) 0.1 % Low 0.2-2.0 [facility] Comment on above: Performed By: #### 1 [id number], [id number], 2468381, 15545275, 1735131, [id number] #### [facility] (DEFAULT) [address] [place] [address] Eos Abs# 0.0 x10 Normal 0.0-0.4 [facility] Comment on above: Performed By: #### 1 [id number], [id number], 4852247, 49773790, 3129058, [id number] #### [facility] (DEFAULT) [address] [place] [address] Eosinophils/100 WBC (Bld) 0.4 % Low 0.9-4.0 [facility] Comment on above: Performed By: #### 1 [id number], [id number], 2667845, 37436905, 7564219, [id number] #### [facility] (DEFAULT) [address] [place] [address] Lymphocytes (Bld) [#/Vol] 1.5 x10 Normal 1.3-2.9 [facility] Comment on above: Performed By: #### 1 [id number], [id number], 3479270, 47323560, 8777520, [id number] #### [facility] (DEFAULT) [address] [place] [address] Lymphocytes/100 WBC (Bld) 19 % Normal 14-48 [facility] Comment on above: Performed By: #### 1 [id number], [id number], 4308982, 99397504, 0941056, [id number] #### [facility] (DEFAULT) [address] [place] [address] [place] Abs# 0.3 x10 Normal 0.0-0.8 [facility] Comment on above: Performed By: #### 1 [id number], [id number], 3493649, 02471932, 5141951, [id number] #### [facility] (DEFAULT) [address] [place] [address] Neut Abs# 5.8 x10 Normal 1.5-9.2 [facility] Comment on above: Performed By: #### 1 [id number], [id number], 1140266, 03829407, 0745636, [id number] #### [facility] (DEFAULT) [address] [place] [address] Neutrophils/100 WBC (Bld) 76 % Normal 44-88 [facility] Comment on above: Performed By: #### 1 [id number], [id number], 6686241, 92372241, 6823696, [id number] #### [facility] (DEFAULT) [address] [place] [address] Auto [place] % 5 % Normal 1-12 [facility] Comment on above: Performed By: #### 1 [id number], [id number], 3826250, 58440046, 9127293, [id number] #### [facility] (DEFAULT) [address] [place] [address] Baso Abs# 0.0 x10 Normal 0.0-0.2 [facility] Comment on above: Performed By: #### 1 [id number], [id number], 5808376, 80303722, 1467774, [id number] #### [facility] (DEFAULT) [address] [place] [address] Basophils/100 WBC (Bld) 0.2 % Normal 0.2-2.0 [facility] Comment on above: Performed By: #### 1 [id number], [id number], 1648485, 55091512, 1078048, [id number] #### [facility] (DEFAULT) [address] [place] [address] Eos Abs# 0.0 x10 Normal 0.0-0.4 [facility] Comment on above: Performed By: #### 1 [id number], [id number], 2251066, 76236610, 9075419, [id number] #### [facility] (DEFAULT) [address] [place] [address] Eosinophils/100 WBC (Bld) 0.3 % Low 0.9-4.0 [facility] Comment on above: Performed By: #### 1 [id number], [id number], 4500533, 48353960, 2073116, [id number] #### [facility] (DEFAULT) [address] [place] [address] Lymphocytes (Bld) [#/Vol] 1.2 x10 Low 1.3-2.9 [facility] Comment on above: Performed By: #### 1 [id number], [id number], 4430107, 66101349, 5497317, [id number] #### [facility] (DEFAULT) [address] [place] [address] Lymphocytes/100 WBC (Bld) 10 % Low 14-48 [facility] Comment on above: Performed By: #### 1 [id number], [id number], 9537990, 82067361, 6204328, [id number] #### [facility] (DEFAULT) [address] [place] [address] Portage Abs# 0.6 x10 Normal 0.0-0.8 [facility] Comment on above: Performed By: #### 1 [id number], [id number], 8328732, 37025376, 9129273, [id number] #### [facility] (DEFAULT) [address] [place] [address] Neut Abs# 9.9 x10 High 1.5-9.2 [facility] Comment on above: Performed By: #### 1 [id number], 8785399042, 0066657, 68652927, 1509780, [id number] #### [facility] (DEFAULT) [address] [place] [address] Neutrophils/100 WBC (Bld) 84 % Normal 44-88 [facility] Comment on above: Performed By: #### 1 [id number], 6749800850, 1211929, 56793855, 3537325, 7411605223 #### [facility] (DEFAULT) [address] [place] [address] CBC w/ Auto Diffon Erythrocyte distribution width (RBC) [Ratio] 12.5 % Normal 11.5-15.0 [facility] Comment on above: Performed By: #### 1 [id number], 5596659974, 2705200, 05509141, 5387743, 6785344143 #### [facility] (DEFAULT) [address] [place] [address] Hematocrit (Bld) [Volume fraction] 35.3 % Normal 33.7-40.4 [facility] Comment on above: Performed By: #### 1 [id number], 7760780694, 3217326, 39484227, 9989299, 5982522232 #### [facility] (DEFAULT) [address] [place] [address] Hemoglobin (Bld) [Mass/Vol] 11.5 g/dL Normal 11.3-15.9 [facility] Comment on above: Performed By: #### 1 [id number], 6085970340, 9805542, 80898755, 0137008, 7767225247 #### [facility] (DEFAULT) [address] [place] [address] Man Diff? Auto Normal [facility] Comment on above: Performed By: #### 1 [id number], 6281590956, 0651871, 21428428, 5767156, 5507082500 #### [facility] (DEFAULT) [address] [place] [address] MCH (RBC) [Entitic mass] 31 pg Normal 24-34 [facility] Comment on above: Performed By: #### 1 [id number], 3605885731, 5792860, 33345141, 4903764, 9013533093 #### [facility] (DEFAULT) [address] [place] [address] MCHC (RBC) [Mass/Vol] 33 g/dL Normal 26-37 [facility] Comment on above: Performed By: #### 1 [id number], 4014247493, 8395249, 47417789, 3128959, 2737537388 #### [facility] (DEFAULT) [address] [place] [address] 86416 MCV (RBC) [Entitic vol] 95 fL Normal 81-100 [facility] Comment on above: Performed By: #### 1 [id number], 9140167810, 4900044, 67886333, 4644244, 9868446269 #### [facility] (DEFAULT) [address] [place], [place] [address] Platelet mean volume (Bld) [Entitic vol] 10.5 fL High 6.3-10.2 [facility] Comment on above: Performed By: #### 1 [id number], 6426282255, 1585394, 72522022, 0217954, 0217526947 #### [facility] (DEFAULT) [address] [place] [address] 77965 Platelets (Bld) [#/Vol] 209 x10 Normal 138-427 [facility] Comment on above: Performed By: #### 1 [id number], 6597752992, 6547599, 24808320, 1040333, 6373147272 #### [facility] (DEFAULT) [address] [place] [address] RBC (Bld) [#/Vol] 3.72 x10 Normal 3.70-5.30 [facility] Comment on above: Performed By: #### 1 [id number], 6526348469, 5025751, 82227096, 4244964, 6591460848 #### [facility] (DEFAULT) [address] [place] [address] WBC (Bld) [#/Vol] 7.6 x10 [facility] Comment on above: Performed By: #### 1 439553482, 9260020980, 6496889, 80366938, 5974270, 9521510195 #### [facility] (DEFAULT) [address] [place] [address] Erythrocyte distribution width (RBC) [Ratio] 12.4 % Normal 11.5-15.0 [facility] Comment on above: Performed By: #### 1 [id number], 6836169457, 2374479, 05827653, 4765735, 0896076007 #### [facility] (DEFAULT) [address] [place] [address] Hematocrit (Bld) [Volume fraction] 38.9 % Normal 33.7-40.4 [facility] Comment on above: Performed By: #### 1 [id number], 7130955156, 3259738, 22302576, 0261606, 7048391763 #### [facility] (DEFAULT) [address] [place] [address] Hemoglobin (Bld) [Mass/Vol] 12.9 g/dL Normal 11.3-15.9 [facility] Comment on above: Performed By: #### 1 [id number], 4315309907, 0260260, 48450714, 9834862, 3240323324 #### [facility] (DEFAULT) [address] [place] [address] 59425 Man Diff? Auto Normal [facility] Comment on above: Performed By: #### 1 [id number], 5198829916, 7810254, 38048557, 7026180, 8074196539 #### [facility] (DEFAULT) [address] [place] [address] MCH (RBC) [Entitic mass] 31 pg Normal 24-34 [facility] Comment on above: Performed By: #### 1 [id number], 0878006906, 7103323, 87553133, 5344692, 0245244056 #### [facility] (DEFAULT) [address] [place] [address] MCHC (RBC) [Mass/Vol] 33 g/dL Normal 26-37 [facility] Comment on above: Performed By: #### 1 [id number], 6274216578, 9292010, 87322526, 4501820, 3526338282 #### [facility] (DEFAULT) [address] [place] [address] 93170 MCV (RBC) [Entitic vol] 93 fL Normal 81-100 [facility] Comment on above: Performed By: #### 1 [id number], 5370586166, 6468110, 89395485, 5599743, 2804889066 #### [facility] (DEFAULT) [address] [place] [address] 34895 Platelet mean volume (Bld) [Entitic vol] 10.5 fL High 6.3-10.2 [facility] Comment on above: Performed By: #### 1 [id number], 9889020709, 6476753, 15631525, 6126896, 3823398252 #### [facility] (DEFAULT) [address] [place] [address] 32607 Platelets (Bld) [#/Vol] 208 x10 Normal 138-427 [facility] Comment on above: Performed By: #### 1 [id number], 0684841354, 0706255, 61376165, 3141032, 1010457290 #### [facility] (DEFAULT) [address] [place] [address] 24706 RBC (Bld) [#/Vol] 4.19 x10 Normal 3.70-5.30 [facility] Comment on above: Performed By: #### 1 [id number], 8576188479, 9235622, 05108735, 8478366, 5641535718 #### [facility] (DEFAULT) [address] [place] [address] 95074 WBC (Bld) [#/Vol] 11.7 x10 [facility] Comment on above: Performed By: #### 1 [id number], 5434915770, 2934762, 55160242, 3529678, 4195556288 #### [facility] (DEFAULT) [address] [place] [address] [facility] Standardon 10-29-2019 eGFR Non AA >60 [facility] Comment on above: Performed By: #### 1 [id number], 2866830460, 0355387, 22662021, 5514222, 6402090294 #### [facility] (DEFAULT) [address] [place] [address] eGFR AA >60 [facility] Comment on above: Result Comment: Adjunct Professor elizabeth Kidney disease could be indicated at eGFRs of less than 60 ml/min/1.73m2. Kidney Failure is indicated at less than 15 ml/min/1.73m2 Performed By: #### 1 [id number], 2196973507, 5080696, 52999118, 6318544, 4820878589 #### [facility] (DEFAULT) [address] [place] [address] 71239 Albumin [Mass/Vol] 4.3 g/dL Normal 3.5-5.0 [facility] Comment on above: Performed By: #### 1 [id number], 0340611159, 3757069, 19431708, 8488268, 4599475927 #### [facility] (DEFAULT) [address] [place] [address] 88802 Albumin/Globulin [Mass ratio] 1.4 {ratio} Normal 1.4-2.6 [facility] Comment on above: Performed By: #### 1 [id number], 5332285184, 9381733, 45722187, 9264127, 2639634153 #### [facility] (DEFAULT) [address] [place] [address] Alk Phos 30 IU/L Low 32-91 [facility] Comment on above: Performed By: #### 1 [id number], 4224503662, 9425246, 84383661, 9088277, 3023689504 #### [facility] (DEFAULT) [address] [place] [address] ALT/SGPT 12.0 IU/L Low 14.0-54.0 [facility] Comment on above: Performed By: #### 1 524242965, 6834321599, 3951413, 18580477, 4560319, 6184123533 #### [facility] (DEFAULT) [address] [place] [address] Anion gap [Moles/Vol] 14.0 mmol/L Normal 5.0-19.0 [facility] Comment on above: Performed By: #### 1 [id number], 2172822788, 9147230, 34302225, 9423219, 1445879643 #### [facility] (DEFAULT) [address] [place] [address] 05317 AST/SGOT 15 IU/L Normal 15-41 [facility] Comment on above: Performed By: #### 1 [id number], 0271831023, 2082778, 15824864, 8224812, 7122929102 #### [facility] (DEFAULT) [address] [place] [address] Bili Total 0.8 mg/dL Normal 0.3-1.2 [facility] Comment on above: Performed By: #### 1 [id number], 9293011067, 0144727, 38029325, 1250601, 9868710578 #### [facility] (DEFAULT) [address] [place] [address] Calcium [Mass/Vol] 9.2 mg/dL Normal 8.9-10.3 [facility] Comment on above: Performed By: #### 1 [id number], 3990152934, 4491294, 30979694, 7636130, 3722916020 #### [facility] (DEFAULT) [address] [place] [address] 24965 Chloride [Moles/Vol] 108 mmol/L Normal 101-111 [facility] Comment on above: Performed By: #### 1 [id number], 4132568436, 1657962, 44518736, 0968868, 3269029395 #### [facility] (DEFAULT) [address] [place] [address] 98987 CO2 [Moles/Vol] 21 mmol/L Normal 21-32 [facility] Comment on above: Performed By: #### 1 324598907, 4948162774, 2853745, 72951621, 3768783, 1963175435 #### [facility] (DEFAULT) [address] [place] [address] 18524 Creatinine [Mass/Vol] 0.65 mg/dL Normal 0.60-1.30 [facility] Comment on above: Performed By: #### 1 [id number], 0629108928, 5298646, 73384059, 7298387, 7551184888 #### [facility] (DEFAULT) [address] [place] [address] 93538 Globulin (S) [Mass/Vol] 3.1 g/dL Normal 1.5-4.3 [facility] Comment on above: Performed By: #### 1 640366336, 1573033268, 9153554, 43469411, 1187982, 3671719962 #### [facility] (DEFAULT) [address] [place] [address] 68861 Glucose [Mass/Vol] 119.0 mg/dL High 74.0-118.0 [facility] Comment on above: Performed By: #### 1 [id number], 5766743560, 2922037, 56128598, 2044967, 4531834787 #### [facility] (DEFAULT) [address] [place] [address] 61257 Osmolality [Osmolality] 278 mOsm/L [facility] Comment on above: Performed By: #### 1 [id number], 9785570570, 8430945, 24991880, 0807946, 6928029465 #### [facility] (DEFAULT) [address] [place] [address] 60872 Potassium [Moles/Vol] 3.7 mmol/L Normal 3.6-5.1 [facility] Comment on above: Performed By: #### 1 [id number], 3142032554, 9620456, 95296618, 8812682, 4473265027 #### [facility] (DEFAULT) [address] [place] [address] Protein [Mass/Vol] 7.4 g/dL Normal 6.5-8.1 [facility] Comment on above: Performed By: #### 1 [id number], 2237904107, 3274441, 82914615, 4299377, 3848042935 #### [facility] (DEFAULT) [address] [place] [address] 61056 Sodium [Moles/Vol] 139.0 mmol/L Normal 136.0-144.0 [facility] Comment on above: Performed By: #### 1 [id number], 7791978617, 6982268, 35713493, 3178680, 6414591784 #### [facility] (DEFAULT) [address] [place] [address] 27097 Urea nitrogen [Mass/Vol] 11 mg/dL Normal 8-26 [facility] Comment on above: Performed By: #### 1 [id number], 1878881490, 8827531, 84692039, 7935768, 3833008506 #### [facility] (DEFAULT) [address] [place] [address] 22175 Urea nitrogen/Creatinine [Mass ratio] 17.0 mg/mg High 4.6-16.2 [facility] Comment on above: Performed By: #### 1 [id number], 4490329699, 2234251, 85610828, 5908467, 7477201005 #### [facility] (DEFAULT) [address] [place] [address] CT Abdomen/Pelvis w/o Patrickleonardo campofaith 10-29-2019 CT Abdomen/Pelvis w/o Contrast EXAMINATION: CT [...] L 10/29/19 0:46 am Technologist: MARTY Goldstein [facility] ED Clinical Summaryon 2018 ED Clinical Summary [facility] - Emergency Department [address] [place] [address] [id number] ED Clinical Summary PERSON INFORMATION Name: LYNNE ABDI Age: 34 Years Sex: FEMALE : 1985 MRN: Acct#: Visit Reason: Nausea; Vomiting; ABD PAIN Arrival: 10/28/2019 23:15:38 Discharge: LOS: 000 02:51 Check In: 10/28/2019 23:15:38 Checkout:10/29/2019 02:06:01 [facility] [address] PCP: Provider, None PROVIDER INFORMATION Provider Role [...] understanding of instructions given Comment: [facility] ED Note - Physicianon 2018 ED Note - Physician Patient: LYNNE ABDI Age: 34 years Sex: FEMALE : 1985 [...] and Plan Diagnosis Abdominal pain in female ([id number] R10.9, Discharge, Medical) Calls-Consults - Radiology: Called, concerned that there might be an appendix issue;; , Dr Yeung: Recommend admission to hospitalist service, and consult to am surgeon; Dr Guzman, 0106 hours, ok. NPO> . Plan Disposition: Admit time 10/29/2019 01:09:00, Megan SHEA, Phi Rudd, Janet Trejo, hospitalist. . Counseled: Patient, Regarding diagnosis, Regarding diagnostic results, Regarding treatment plan, Regarding prescription, Patient indicated understanding of instructions. [Electronically Signed on: 10/29/2019 02:40 EST] Syd Davis DO [Electronically Signed on: 10/29/2019 06:13 EST] Syd Davis DO [Verified on: 10/29/2019 02:40 EST] Syd Davis DO [facility] ED Patient Education Noteon 10-29-2019 ED Patient Education Note Education Materials [facility] ED Patient Summaryon 019 ED Patient Summary [facility] - Emergency Department [address] [place] [id number] PATIENT DISCHARGE INSTRUCTIONS Patient Information Name: LYNNE ABDI Age: 34 Years Date of : 1985 Reason For Visit: Nausea; Vomiting; ABD PAIN Arrival Time: 10/28/2019 23:15:38 Primary Care Physician: Provider, None Attending Physician: Lizbeth Trejo MD Comment: Visit Diagnosis: Diagnoses This Visit Abdominal pain in female (R10.9) Nausea ([id number]) Vomiting ([id number]) Prescription Information: If you have been given a prescription for narcotics, seek immediate medical attention if you have any difficulty breathing or any sudden status changes such as confusion and sleepiness. If you or anyone you know is experiencing suicidal thoughts, mental health, alcohol and/or drug addiction problems; contact the [facility] 20/06 Crisis Hotline -Text 5YARD ej [phone]. If you received any narcotics, sedation, or [...] and treatment you received today in the [facility] Emergency Department were for an urgent problem and are not intended as complete care. It is important for you to follow up with a doctor, nurse practitioner, or physician?s student assistant for ongoing care. If your symptoms [...] so we can reach you if necessary. [facility] Emergency Department has provided you with a complete list of medications post discharge. Please inform your manager commercial/provider of your visit and for further instruction [...] 1 cap(s) Oral every day. Refills: 0. [facility] Prescription (work note) Please excuse from work [...] Control and Prevention July 2014 [facility] Education Noteon 10-29-2019 Education Note Education [...] Follow these instructions at home: ? Take wltt-iay-hmxuhyc and prescription medicines only as told by [...] 08/24/2006 Document Revised: 06/03/2017 Document Reviewed: 04/27/2017 ElseNethub Interactive Patient Education ? 2019 [employer]. Normal [facility] Extra Greenon 10-29-2019 Tube Collected Yes [facility] Comment on above: Performed By: #### 1 [id number], [id number], 3331655, 03483718, 2957033, [id number] #### [facility] (DEFAULT) [address] [place] [address] 72745 Extra Redon 10-29-2019 Tube Collected Yes [facility] Comment on above: Performed By: #### 1 [id number], 7917829318, 1138540, 91589502, 2675597, 7041878100 #### [facility] (DEFAULT) [address] [place] [address] 60465 Inpatient Patient Summaryon 10-29-2019 Inpatient Patient Summary [place] [id number] Patient Discharge Instructions Name: LYNNE ABDI : 1985 Patient Address: [address] [place] [address] Primary Care Provider: Name: Provider, None Phone: After you are discharged if you find you have any questions, please, call [phone] ext [phone] to speak to a nurse. Discharge Diagnosis: Abdominal pain in female Prescription Information: If you have been given a prescription for narcotics, seek immediate medical attention if you have any difficulty breathing or any sudden status changes such as confusion and sleepiness. If you or anyone you know is experiencing suicidal thoughts, mental health, alcohol and/or drug addiction problems; contact the [facility] 20/06 Crisis Hotline -Text 4HEUA pb [phone]. If you received any narcotics, sedation, or [...] business decisions or sign any legal documents [facility] would like to thank you for allowing us to assist you with your healthcare needs. The following includes patient education materials and information regarding your injury/illness. LYNNE ABDI has been given the following list of follow-up instructions, prescriptions, and patient education materials: Follow-up Instructions With: Address: When: None Provider Medications During the course of your visit, your medication list was updated with the most current information. The details of those changes are reflected below: New Medications [facility]/pharmacy #[id number], [address], [place] [id number], [phone] ondansetron (Zofran ODT 4 mg oral tablet, [...] Follow these instructions at home: ? Take irgb-vct-srilwdh and prescription medicines only as told by [...] 08/24/2006 Document Revised: 06/03/2017 Document Reviewed: 04/27/2017 [email or web address] Interactive Patient Education ? 2018 [employer]. Viruses or Bacteria What?s got you sick? [...] Control and Prevention July 2014 [facility] Lipaseon 10-29-2019 Lipase Level 32.0 IU/L Normal 22.0-51.0 [facility] Comment on above: Performed By: #### 1 [id number], 1752740106, 5214684, 42785478, 0437176, [id number] #### [facility] (DEFAULT) [address] [place] [address] Nutrition Noteon 10-29-2019 Nutrition Note Pt admitted [...] Will continue to monitor closely. [facility] Pharmacy Noteon 10-29-2019 Pharmacy Note I [...] [Electronically Signed on: 10/29/2019 11:46 EST] Korina Francisco JDenniseIdania [Verified on: 10/29/2019 11:46 EST] Korina Francisco JDenniseIdania [facility] Test Urine 1on U Preg Negative [facility] Comment on above: Performed By: #### 1 [id number], 7865197596, 3155430, 15952721, 0495204, 1084610084 #### [facility] (DEFAULT) [address] [place] [address] 19000 U Preg Internal Control Pass [facility] Comment on above: Performed By: #### 1 [id number], 7203329932, 6533073, 91840680, 8494068, 5925007432 #### [facility] (DEFAULT) [address] [place] [address] 28990 Progress Note - Nurseon 12-0 INR Coag (Bld) [Relative time] Pt states abd pain in RLQ that feels better when pushed upon. Abd tenderness in upper midline that feels worse when palpated. Associated nausea being managed with zofran. No other issues or concerns at this time. [Electronically Signed on: 10/29/2019 11:12 EST] Jan Wylie RN [Verified on: 10/29/2019 11:12 EST] Dejan LANDON, Jan Rosenbaum [facility] Progress Note - Nurse Pt arrives [...] 23:27 EST] Louisa Morrison RN [facility] Triage Panel 12on 10-29-2019 Triage Internal Control Pass [facility] Comment on above: Performed By: #### 1 [id number], 8990077678, 9464745, 63511518, 9403690, [id number] #### [facility] (DEFAULT) [address] [place] [address] 79529 U Amph Scr Negative [facility] Comment on above: Performed By: #### 1 [id number], 8461830911, 0304488, 38786362, 8020862, [id number] #### [facility] (DEFAULT) [address] [place] [address] 45212 U Edel Scr Negative [facility] Comment on above: Performed By: #### 1 [id number], 8508353584, 4859678, 19361432, 5265802, [id number] #### [facility] (DEFAULT) [address] [place] [address] 79868 U Benzodia Scr Negative [facility] Comment on above: Performed By: #### 1 [id number], 0957709473, 7158288, 55879284, 6074406, 6492079226 #### [facility] (DEFAULT) [address] [place], [place] [address] U Cannab Scrn Negative [facility] Comment on above: Performed By: #### 1 [id number], 6510742284, 4489670, 37130328, 0919040, [id number] #### [facility] (DEFAULT) [address] [place] [address] U Cocaine Scr Negative [facility] Comment on above: Performed By: #### 1 [id number], 4924379258, 4776707, 65272717, 3066487, [id number] #### [facility] (DEFAULT) [address] [place], [place] [address] U Methadone Scr Negative [facility] Comment on above: Performed By: #### 1 [id number], 7113700329, 3106838, 94466357, 5621321, 4016935443 #### [facility] (DEFAULT) [address] [place] [address] 95540 U Methamp Scrn Negative [facility] Comment on above: Performed By: #### 1 [id number], 6411407740, 3431489, 49934257, 3596417, 3250937995 #### [facility] (DEFAULT) [address] [place] [address] 55949 U Opiate Scr Negative [facility] Comment on above: Performed By: #### 1 [id number], 2367562798, 7208518, 57565083, 0388949, [id number] #### [facility] (DEFAULT) [address] [place] [address] 29727 U Oxycod Scr Negative Normal [facility] Comment on above: Performed By: #### 1 [id number], 6248211571, 5128213, 43709792, 6212359, [id number] #### [facility] (DEFAULT) [address] [place] [address] U Phencyclidine Scr Negative [facility] Comment on above: Performed By: #### 1 [id number], 8547035868, 3200164, 77346083, 5338603, [id number] #### [facility] (DEFAULT) [address] [place] [address] U Propoxyphene Scr Negative [facility] Comment on above: Performed By: #### 1 [id number], [id number], 6263842, 11703267, 3411100, [id number] #### [facility] (DEFAULT) [address] [place] [address] U Tricyclic Antidepress Scr Negative [facility] Comment on above: Performed By: #### 1 [id number], [id number], 6214829, 95251528, 6718811, 3265563936 #### [facility] (DEFAULT) [address] [place] [address] Urine Source Clean Catch [facility] Comment on above: Performed By: #### 1 [id number], 7530753097, 7878848, 99872549, 1662857, [id number] #### [facility] (DEFAULT) [address] [place] [address] UA [id number] 10-29-2019 RBC (U) [#/Vol] None Seen [facility] Comment on above: Order Comment: Urina lysis Microscopic order added on by [employer] Expert Rules system. Performed By: #### 1 [id number], 5946491147, 3261576, 98841188, 6192315, [id number] #### [facility] (DEFAULT) [address] [place] [address] 88323 UA Bacteria None [facility] Comment on above: Order Comment: Urina lysis Microscopic order added on by [employer] Rules system. Performed By: #### 1 [id number], 8703249292, 9791066, 65539619, 9982771, 6762548473 #### [facility] (DEFAULT) [address] [place] [address] 27436 UA Hyal Cast 0-5 [facility] Comment on above: Order Comment: Urina lysis Microscopic order added on by [employer] Expert Rules system. Performed By: #### 1 [id number], [id number], 4150830, 43507674, 4245538, [id number] #### [facility] (DEFAULT) [address] [place] [address] UA Squam Epi Rare [facility] Comment on above: Order Comment: Urina lysis Microscopic order added on by [employer] Expert Rules system. Performed By: #### 1 [id number], 4565475707, 4959817, 32655471, 0575662, [id number] #### [facility] (DEFAULT) [address] [place] [address] UA WBC None Seen [facility] Comment on above: Order Comment: Urina lysis Microscopic order added on by [employer] Expert Rules system. Performed By: #### 1 [id number], 2016945119, 9526289, 33227348, 4651685, [id number] #### [facility] (DEFAULT) [address] [place] [address] UA w Culture if Ind Standard on 10-29-2019 Color (U) Yellow [facility] Comment on above: Performed By: #### 1 [id number], 7225922186, 4526905, 34167000, 3156275, [id number] #### [facility] (DEFAULT) [address] [place] [address] Culture? Not Indicated [facility] Comment on above: Performed By: #### 1 [id number], 6881083727, 2904565, 51753934, 4866131, 8252487974 #### [facility] (DEFAULT) [address] [place] [address] Glucose (U) [Mass/Vol] Negative [facility] Comment on above: Performed By: #### 1 [id number], 3376443669, 3486143, 10923601, 6737552, [id number] #### [facility] (DEFAULT) [address] [place] [address] 07358 Ketones Ql (U) Negative Normal [facility] Comment on above: Performed By: #### 1 [id number], 1836940288, 0376096, 36980353, 1923848, 6376755343 #### [facility] (DEFAULT) [address] [place] [address] 52243 Micro? Indicated [facility] Comment on above: Performed By: #### 1 [id number], 0280351370, 0686287, 96482213, 1758222, 8784638714 #### [facility] (DEFAULT) [address] [place] [address] 24437 UA Bilirubin Negative Normal [facility] Comment on above: Performed By: #### 1 [id number], 5398208814, 8471067, 88166754, 2268843, 0156907258 #### [facility] (DEFAULT) [address] [place] [address] 17915 UA Blood Negative Normal NEGATIVE [facility] Comment on above: Performed By: #### 1 [id number], 7227562393, 9619440, 50332603, 7147906, 8364245158 #### [facility] (DEFAULT) [address] [place] [address] 21602 UA Clarity CLEAR Normal CLEAR [facility] Comment on above: Performed By: #### 1 [id number], 8183754331, 9566297, 67345173, 7767094, 2668807831 #### [facility] (DEFAULT) [address] [place] [address] 16499 UA Leuk Est Negative Normal NEGATIVE [facility] Comment on above: Performed By: #### 1 [id number], 9622587499, 0190884, 60775520, 2893972, 6330059029 #### [facility] (DEFAULT) [address] [place] [address] 25967 UA Nitrite Negative Normal NEGATIVE [facility] Comment on above: Performed By: #### 1 [id number], 9832038689, 6030107, 08995650, 2890470, 2444127256 #### [facility] (DEFAULT) [address] [place] [address] 18736 UA pH 5.5 Normal 5-8 [facility] Comment on above: Performed By: #### 1 [id number], 0236929024, 2356348, 83778926, 0635157, 0732421722 #### [facility] (DEFAULT) [address] [place] [address] 80474 UA Protein TRACE Abnormal NEGATIVE [facility] Comment on above: Performed By: #### 1 [id number], 1875332612, 7141731, 85992544, 1690707, 7167817643 #### [facility] (DEFAULT) [address] [place] [address] UA Spec Grav 1.015 Normal 1.001-1.035 [facility] Comment on above: Performed By: #### 1 [id number], 2616181339, 5090784, 87369510, 4816883, 9081716262 #### [facility] (DEFAULT) [address] [place] [address] 47815 UA Urobilinogen 0.2 mg/dL Normal 0.2-1.0 [facility] Comment on above: Performed By: #### 1 [id number], 5526174144, 6797013, 11059559, 0512318, 9926254964 #### [facility] (DEFAULT) [address] [place] [address] 24826 Urine Source Clean Catch Normal [facility] Comment on above: Performed By: #### 1 360750083, 6212800074, 9016052, 60473931, 2166941, 9933743950 #### [facility] (DEFAULT) [address] [place] [address] 22539 Breakpoint UA Normal [facility] Comment on above: Performed By: #### 1 [id number], 6588906357, 2370920, 32013426, 1759495, 3985703515 #### [facility] (DEFAULT) [address] [place] [address] US Gallbladderon 10-29-2019 US Gallbladder Ultrasound gallbladd [...] Signature): Isabell Damon 10/29/19 8:07 am Technologist: Rosalia [facility] Coding Summaryon 10-24-2019 Coding Summary CODING DATE: [facility] STATUS: PAYOR: Self Pay ADMIT DX: REASON [...] Date Saved: 10/24/2019 05:06 pm [facility] Coding Summary CODING DATE: [facility] STATUS: Home PAYOR: Self Pay APC DESCRIPTION [...] Zeyad Roman' Date Saved: 10/24/2019 05:04 pm Normal [facility] .Auto Diff 1on 10-23-2019 Auto [place] % 6 % Normal -12 [facility] Comment on above: Performed By: #### 1 [id number], 1830806396, 8713726, 07171538, 6923942, 4674480853 #### [facility] (DEFAULT) [address] [place] [address] 20823 Baso Abs# 0.0 x10 Normal 0.0-0.2 [facility] Comment on above: Performed By: #### 1 [id number], 4822528610, 7324014, 06532775, 3067280, 6082059882 #### [facility] (DEFAULT) [address] [place] [address] 33252 Basophils/100 WBC (Bld) 0.2 % Normal 0.2-2.0 [facility] Comment on above: Performed By: #### 1 [id number], 3312242539, 5684260, 61053842, 0448065, 2939749331 #### [facility] (DEFAULT) [address] [place] [address] 91667 Eos Abs# 0.1 x10 Normal 0.0-0.4 [facility] Comment on above: Performed By: #### 1 [id number], 4505994788, 6205071, 97765198, 7757905, 0208069094 #### [facility] (DEFAULT) [address] [place] [address] 20971 Eosinophils/100 WBC (Bld) 1.8 % Normal 0.9-4.0 [facility] Comment on above: Performed By: #### 1 [id number], 0572418626, 4954699, 83174288, 5338327, 3731340386 #### [facility] (DEFAULT) [address] [place] [address] 17968 Lymphocytes (Bld) [#/Vol] 2.0 x10 Normal 1.3-2.9 [facility] Comment on above: Performed By: #### 1 [id number], 6175966959, 8460774, 44211421, 6088702, 3446742968 #### [facility] (DEFAULT) [address] [place] [address] 43888 Lymphocytes/100 WBC (Bld) 30 % Normal 14-48 [facility] Comment on above: Performed By: #### 1 [id number], 5734637983, 3466737, 76906131, 6547040, 4053918776 #### [facility] (DEFAULT) [address] [place] [address] 98371 [place] Abs# 0.4 x10 Normal 0.0-0.8 [facility] Comment on above: Performed By: #### 1 455551867, 5884609988, 6095235, 87880245, 0741241, 5485474099 #### [facility] (DEFAULT) [address] [place] [address] 57563 Neut Abs# 4.0 x10 Normal 1.5-9.2 [facility] Comment on above: Performed By: #### 1 996428426, 5405706247, 4239157, 93925568, 0554549, 9935426582 #### [facility] (DEFAULT) [address] [place] [address] 83938 Neutrophils/100 WBC (Bld) 62 % Normal 44-88 [facility] Comment on above: Performed By: #### 1 057150521, 5660627294, 2469353, 50458962, 0852506, 8884159647 #### [facility] (DEFAULT) [address] [place] [address] 94281 CBC w/ Auto Diffon 9 Erythrocyte distribution width (RBC) [Ratio] 12.6 % Normal 11.5-15.0 [facility] Comment on above: Performed By: #### 1 [id number], 5788453, 06845897, 0850450, 8119386558 ####[facility] (DEFAULT)[address] [place] [address] Hematocrit (Bld) [Volume fraction] 38.0 % Normal 33.7-40.4 [facility] Comment on above: Performed By: #### 1 019287536, 4661182, 53421261, 4860919, 8898470594 ####[facility] (DEFAULT)[address] [place] [address] Hemoglobin (Bld) [Mass/Vol] 12.7 g/dL Normal 11.3-15.9 [facility] Comment on above: Performed By: #### 1 168948432, 4219184, 76219933, 5519902, 8650886510 ####[facility] (DEFAULT)[address] [place] [address] Man Diff? Auto Normal [facility] Comment on above: Performed By: #### 1 [id number], 0983796, 06612597, 4593842, 8830015154 ####[facility] (DEFAULT)[address] [place] [address] MCH (RBC) [Entitic mass] 31 pg Normal 24-34 [facility] Comment on above: Performed By: #### 1 982907491, 1189864, 82967767, 4405232, 6538265351 ####[facility] (DEFAULT)[address] [place] [address] MCHC (RBC) [Mass/Vol] 33 g/dL Normal 26-37 [facility] Comment on above: Performed By: #### 1 574441277, 8721689, 38057033, 5223248, 0905739835 ####[facility] (DEFAULT)[address] [place] [address] MCV (RBC) [Entitic vol] 93 fL Normal 81-100 [facility] Comment on above: Performed By: #### 1 022150745, 2886188, 39794677, 9048314, 5468405795 ####[facility] (DEFAULT)[address] [place] [address] 80332 Platelet mean volume (Bld) [Entitic vol] 10.2 fL Normal 6.3-10.2 [facility] Comment on above: Performed By: #### 1 328327570, 9752151, 61953952, 7871566, 9608004197 ####[facility] (DEFAULT)[address] [place] [address] Platelets (Bld) [#/Vol] 231 x10 Normal 138-427 [facility] Comment on above: Performed By: #### 1 499211148, 6067245, 62993301, 3526333, 9469468014 ####[facility] (DEFAULT)[address] [place] [address] RBC (Bld) [#/Vol] 4.10 x10 Normal 3.70-5.30 [facility] Comment on above: Performed By: #### 1 777376509, 0412837, 88521594, 8780786, 3372594549 ####[facility] (DEFAULT)[address] [place] [address] 36783 WBC (Bld) [#/Vol] 6.5 x10 [facility] Comment on above: Performed By: #### 1 251728216, 3644947, 17291988, 5543472, 4023237871 ####[facility] (DEFAULT)[address] [place] [address] Standardon 10-23-2019 eGFR Non AA >60 [facility] Comment on above: Performed By: #### 1 [id number], 6713428568, 4795066, 26847819, 5760087, 9710890986 #### [facility] (DEFAULT) [address] [place] [address] eGFR AA >60 [facility] Comment on above: Result Comment: Adjunct Professor elizabeth Kidney disease could be indicated at eGFRs of less than 60 ml/min/1.73m2. Kidney Failure is indicated at less than 15 ml/min/1.73m2 Performed By: #### 1 [id number], 8721037260, 5000682, 24298034, 6276971, 5920705850 #### [facility] (DEFAULT) [address] [place] [address] Albumin [Mass/Vol] 4.4 g/dL Normal 3.5-5.0 [facility] Comment on above: Performed By: #### 1 [id number], 6170005048, 6002806, 20125736, 1635052, 8841598307 #### [facility] (DEFAULT) [address] [place] [address] Albumin/Globulin [Mass ratio] 1.4 {ratio} Normal 1.4-2.6 [facility] Comment on above: Performed By: #### 1 [id number], 0280311174, 9077301, 30964069, 1546870, 0452547782 #### [facility] (DEFAULT) [address] [place] [address] Alk Phos 34 IU/L Normal 32-91 [facility] Comment on above: Performed By: #### 1 [id number], 4216958461, 6994318, 85006598, 0811975, 0423925925 #### [facility] (DEFAULT) [address] [place] [address] ALT/SGPT 12.0 IU/L Low 14.0-54.0 [facility] Comment on above: Performed By: #### 1 001010555, 3736609517, 9512857, 43675516, 0303800, 9031002500 #### [facility] (DEFAULT) [address] [place] [address] 12100 Anion gap [Moles/Vol] 16.0 mmol/L Normal 5.0-19.0 [facility] Comment on above: Performed By: #### 1 [id number], 0950346996, 3385176, 48995325, 1359967, 4290172806 #### [facility] (DEFAULT) [address] [place] [address] AST/SGOT 15 IU/L Normal 15-41 [facility] Comment on above: Performed By: #### 1 [id number], 0126002976, 9418805, 67054114, 3517008, 0778052473 #### [facility] (DEFAULT) [address] [place] [address] 83894 Bili Total 0.3 mg/dL Normal 0.3-1.2 [facility] Comment on above: Performed By: #### 1 [id number], 9837606441, 4649191, 83477667, 1299704, 4197088745 #### [facility] (DEFAULT) [address] [place] [address] 17860 Calcium [Mass/Vol] 9.3 mg/dL Normal 8.9-10.3 [facility] Comment on above: Performed By: #### 1 609199275, 1470583236, 3367381, 43098667, 5960379, 8274155528 #### [facility] (DEFAULT) [address] [place] [address] 62217 Chloride [Moles/Vol] 107 mmol/L Normal 101-111 [facility] Comment on above: Performed By: #### 1 832799218, 8357419134, 0782603, 96382034, 7374086, 4492447367 #### [facility] (DEFAULT) [address] [place] [address] 90148 CO2 [Moles/Vol] 23 mmol/L Normal 21-32 [facility] Comment on above: Performed By: #### 1 [id number], 7449539629, 0401844, 86322051, 1886556, 4882635875 #### [facility] (DEFAULT) [address] [place] [address] 54018 Creatinine [Mass/Vol] 0.62 mg/dL Normal 0.60-1.30 [facility] Comment on above: Performed By: #### 1 [id number], 9060219781, 4061844, 61688058, 8501110, 1987532489 #### [facility] (DEFAULT) [address] [place] [address] 57342 Globulin (S) [Mass/Vol] 3.1 g/dL Normal 1.5-4.3 [facility] Comment on above: Performed By: #### 1 611831153, 5908584835, 7411534, 62207186, 3219035, 2296140596 #### [facility] (DEFAULT) [address] [place] [address] 21255 Glucose [Mass/Vol] 101.0 mg/dL Normal 74.0-118.0 [facility] Comment on above: Performed By: #### 1 737534781, 9886828931, 1678023, 83406383, 1877671, 3732832878 #### [facility] (DEFAULT) [address] [place] [address] 39325 Osmolality [Osmolality] 283 mOsm/L [facility] Comment on above: Performed By: #### 1 157263989, 5879239886, 3988971, 59629186, 3372681, 5456040753 #### [facility] (DEFAULT) [address] [place] [address] 01247 Potassium [Moles/Vol] 3.5 mmol/L Low 3.6-5.1 [facility] Comment on above: Performed By: #### 1 698193230, 8237219568, 9079278, 66783596, 1611459, 7498921540 #### [facility] (DEFAULT) [address] [place] [address] 41309 Protein [Mass/Vol] 7.5 g/dL Normal 6.5-8.1 [facility] Comment on above: Performed By: #### 1 303160279, 2905592329, 0760683, 77049732, 0451053, 9405738208 #### [facility] (DEFAULT) [address] [place] [address] 59694 Sodium [Moles/Vol] 142.0 mmol/L Normal 136.0-144.0 [facility] Comment on above: Performed By: #### 1 550207508, 6386498474, 2262036, 25957285, 0128205, 9140404322 #### [facility] (DEFAULT) [address] [place] [address] 25930 Urea nitrogen [Mass/Vol] 11 mg/dL Normal 07-23 [facility] Comment on above: Performed By: #### 1 534878600, 2496514180, 7225847, 15468155, 0023325, 5234125431 #### [facility] (DEFAULT) [address] [place] [address] Urea nitrogen/Creatinine [Mass ratio] 18.0 mg/mg High 4.6-16.2 [facility] Comment on above: Performed By: #### 1 [id number], 8155988719, 0952281, 16261738, 8704434, 7651284236 #### [facility] (DEFAULT) [address] [place] [address] CT Abdomen/Pelvis w/o Contra ston 10-23-2019 CT [...] probably reactive. Final Dictated by: Tristen Heard DO. Dictated DT/TM: 10/23/19 7:26 Signed (Electronic Signature): Tristen Heard DO. 10/23/19 8:20 pm Technologist: FABIENNE Normal [facility] ED Clinical Summaryon 2018 ED Clinical Summary [facility] - Emergency Department [address] [place] [address] ED Clinical Summary PERSON INFORMATION Name: LYNNE ABDI Age: 34 Years Sex: FEMALE : 1985 MRN: Acct#: Visit Reason: Nausea; Flank pain; VOMITING, RIGHT FLANK PAIN Arrival: 10/23/2019 17:36:59 Discharge: 10/23/2019 20:09:00 LOS: 000 02:33 Check In: 10/23/2019 17:36:59 Checkout:10/23/2019 20:09:00 Address: [facility] [address] PCP: Provider, None PROVIDER INFORMATION Provider Role Assigned Unassigned Breezy RN, Abby Rudd ED Nurse 10/23/2019 17:40:13 HECTOR KESSLER, SERG Lindsey ED PA 10/23/2019 17:40:51 Jeevan RN, Caity Cheng ED Nurse 10/23/2019 19:14:31 VITALS [...] Allergy Information: shellfish PHYSICIAN DOCUMENTATION Patient: LYNNE ABDI Age: 34 years Sex: FEMALE : 1985 [...] ENT: -pharynx pink and moist. NECK: -Supple (vrxr-ha-lplde): non-tender. CARD: -Rate and rhythm: Regular -Edema: [...] % Auto Lymph % 30 % Auto [place] % 6 % Auto Eos % 1.8 % Auto Baso % 0.2 % Neut Abs# 4.0 x103/mcL Lymph Abs# 2.0 x103/mcL [place] Abs# 0.4 x103/mcL Eos Abs# 0.1 x103/mcL Baso Abs# 0.0 x103/mcL Tube Collected Yes . Impression and Plan Diagnosis Right flank pain ([id number] R10.9, Discharge, Medical) Plan Condition: Improved, Stable. [...] mg, IV Push, Once, Launch prescriptions Pharmacy: [facility] 4 mg oral tablet, disintegrating (Prescribe): [...] 3 to 5 days Urologist; Isidra Baig [phone] EXT: [phone] Call for family Physician Within 3 to 5 days Call to become established with primary care provider. Counseled: Patient, Regarding diagnosis, Regarding diagnostic results, Regarding treatment plan, Patient indicated understanding of instructions. DISCHARGE INFORMATION: Discharge Disposition: Home Discharge Location: Home PATIENT EDUCATION INFORMATION Instructions: Renal Colic; Flank Pain, Adult; Abdominal Pain, Adult Follow-Up: With: Address: When: [facility], [address] [facility] [address] [place] [address] [facility] (1) Within 2 to 4 days Comments: [...] or weakness. With: Address: When: Woody Diaz [address] [place] [address], [address] [place] [address] makr (1) Within 3 to 5 days Comments: Urologist With: Address: When: Isidra Baig [phone] EXT: [phone] Call for family Physician Within 3 to 5 days Comments: Call to become established with primary care provider DIAGNOSIS: Right flank pain Patient Understands: Yes - Patient/family/caregiver verbalizes understanding of instructions given Comment: [facility] ED Note - Physicianon 2018 ED Note - Physician Patient: LYNNE ABDI Age: 34 years Sex: FEMALE : 1985 [...] ENT: -pharynx pink and moist. NECK: -Supple (tkxo-za-mlbxu): non-tender. CARD: -Rate and rhythm: Regular -Edema: [...] % Auto Lymph % 30 % Auto [place] % 6 % Auto Eos % 1.8 % Auto Baso % 0.2 % Neut Abs# 4.0 x103/mcL Lymph Abs# 2.0 x103/mcL [place] Abs# 0.4 x103/mcL Eos Abs# 0.1 x103/mcL Baso Abs# 0.0 x103/mcL Tube Collected Yes . Impression and Plan Diagnosis Right flank pain ([id number] R10.9, Discharge, Medical) Plan Condition: Improved, Stable. [...] 3 to 5 days Urologist; Isidra Baig [phone] EXT: [phone] Call for family Physician Within 3 to 5 days Call to become established with primary care provider. Counseled: Patient, Regarding diagnosis, Regarding diagnostic results, Regarding treatment plan, Patient indicated understanding of instructions. [Electronically Signed on: 10/23/2019 19:52 EST] SERG LOCKE [Verified on: 10/23/2019 19:52 EST] SERG LOCKE [facility] ED Note-Nursingon 10-23-2019 ED Note-Nursing Pt [...] to room 7 without assistance. [facility] ED Patient Education Noteon 10-23-2019 ED [...] Follow these instructions at home: ? Take ihgf-aop-jjkqsus and prescription medicines only as told by [...] 08/24/2006 Document Revised: 06/03/2017 Document Reviewed: 04/27/2017 [email or web address] Interactive Patient Education ? 2019 [employer]. Urology Renal Colic Renal colic is pain [...] provider if it is okay to take ftbq-avc-rdjkmab pain medicine. ? Drink enough fluid to [...] 08/24/2006 Document Revised: 04/19/2017 Document Reviewed: 09/24/2015 [email or web address] Interactive Patient Education ? 2019 [employer]. Flank Pain, Adult Flank pain is pain [...] by your health care provider. ? Take nnsc-lvv-qeoyqaq and prescription medicines only as told by [...] 01/05/2007 Document Revised: 01/27/2018 Document Reviewed: 01/27/2018 [employer] Interactive Patient Education ? 2019 [employer]. Normal [facility] ED Patient Summaryon 019 ED Patient Summary [facility] - Emergency Department [address] [place] [address] PATIENT DISCHARGE INSTRUCTIONS Patient Information Name: LYNNE ABDI Age: 34 Years Date of : 1985 Reason For Visit: Nausea; Flank pain; VOMITING, RIGHT FLANK PAIN Arrival Time: 10/23/2019 17:36:59 Primary Care Physician: Provider, None Attending Physician: Boo Johnson MD Comment: Visit Diagnosis: Diagnoses This Visit Flank pain ([id number]) Nausea ([id number]) Right flank pain (R10.9) Prescription Information: If you have been given a prescription for narcotics, seek immediate medical attention if you have any difficulty breathing or any sudden status changes such as confusion and sleepiness. If you or anyone you know is experiencing suicidal thoughts, mental health, alcohol and/or drug addiction problems; contact the [facility] 20/06 Crisis Hotline -Text [id number]. If you received any narcotics, sedation, or [...] legal documents With: Address: When: [facility], [address] [place] [address] Business (1) Within 2 to 4 days [...] or weakness. With: Address: When: Woody Diaz [address] [place] [address], [address] [place] [address] Business (1) Within 3 to 5 days Comments: Urologist With: Address: When: Isidra Baig [phone] EXT: [phone] Call for family Physician Within 3 to 5 days Comments: Call to become established with primary care provider Medication Information: The exam and treatment you received today in the [facility] Emergency Department were for an urgent problem and are not intended as complete care. It is important for you to follow up with a doctor, nurse practitioner, or physician?s student assistant for ongoing care. If your symptoms [...] so we can reach you if necessary. [facility] Emergency Department has provided you with a complete list of medications post discharge. Please inform your manager commercial/provider of your visit and for further instruction [...] provider if it is okay to take dkmb-lfs-rceqkjk pain medicine. ? Drink enough fluid to [...] 08/24/2006 Document Revised: 04/19/2017 Document Reviewed: 09/24/2015 [email or web address] Interactive Patient Education ? 2019 [employer]. Flank Pain, Adult Flank pain is pain [...] by your health care provider. ? Take wrwz-ykj-ftaetcw and prescription medicines only as told by [...] 01/05/2007 Document Revised: 01/27/2018 Document Reviewed: 01/27/2018 videof.me Interactive Patient Education ? 2019 [employer]. Abdominal Pain, Adult Abdominal pain can be [...] Follow these instructions at home: ? Take jwbz-cyh-futddor and prescription medicines only as told by [...] 08/24/2006 Document Revised: 06/03/2017 Document Reviewed: 04/27/2017 [email or web address] Interactive Patient Education ? 2019 [employer]. Viruses or Bacteria What?s got you sick? [...] Disease Control and Prevention July 2014 Normal [facility] Extra Blueon 10-23-2019 Tube Collected Yes [facility] Comment on above: Performed By: #### 1 [id number], 1905251, 86014858, 2293985, [id number] ####[facility] (DEFAULT)[address] [place] [address] Lactic Acidon 10-23-2019 Lactate [Moles/Vol] 6.5 mg/dL Normal 4.5-19.8 [facility] Comment on above: Performed By: #### 1 [id number], [id number], 1943239, 11227122, 1315565, [id number] #### [facility] (DEFAULT) [address] [place] [address] Lipaseon 10-23-2019 Lipase Level 48.0 IU/L Normal 22.0-51.0 [facility] Comment on above: Performed By: #### 1 [id number], [id number], 0070847, 43416800, 9104244, 9428153830 #### [facility] (DEFAULT) [address] [place] [address] Test Serum 1on Preg Serum Internal Control OK [facility] Comment on above: Performed By: #### 1 [id number], 0812469473, 2313010, 29548129, 3526061, 2573362861 #### [facility] (DEFAULT) [address] [place] [address] Test Serum Qual Negative [facility] Comment on above: Performed By: #### 1 [id number], 7792371937, 1597383, 00162215, 2342121, 0296224140 #### [facility] (DEFAULT) [address] [place] [address] UA w Culture if Ind Standard on 10-23-2019 Breakpoint UA [facility] Comment on above: Performed By: #### 1 [id number], 9685748568, 5053298, 04882085, 1962463, 1490801024 #### [facility] (DEFAULT) [address] [place] [address] 67496 Color (U) Yellow Normal [facility] Comment on above: Performed By: #### 1 [id number], 8884635204, 0741799, 01672606, 1496457, 4126446695 #### [facility] (DEFAULT) [address] [place] [address] 66115 Culture? No [facility] Comment on above: Performed By: #### 1 [id number], 1008175426, 6715692, 87073518, 3528483, 2468144496 #### [facility] (DEFAULT) [address] [place] [address] Glucose (U) [Mass/Vol] Negative Normal [facility] Comment on above: Performed By: #### 1 [id number], 6100908018, 1655391, 46509328, 5921714, 1848239694 #### [facility] (DEFAULT) [address] [place] [address] 19653 Ketones Ql (U) Negative [facility] Comment on above: Performed By: #### 1 [id number], 1239510089, 8941392, 25911911, 8046390, 5994110836 #### [facility] (DEFAULT) [address] [place] [address] 60519 Micro? Not Indicated [facility] Comment on above: Performed By: #### 1 [id number], 7396920420, 3469840, 85104533, 1330464, 4914840540 #### [facility] (DEFAULT) [address] [place] [address] 29233 UA Bilirubin Negative Normal [facility] Comment on above: Performed By: #### 1 [id number], 7393746463, 8222050, 76552527, 4281768, 0193204996 #### [facility] (DEFAULT) [address] [place] [address] 08258 UA Blood Negative Normal [facility] Comment on above: Performed By: #### 1 [id number], 8507065133, 4922970, 98343617, 3474320, 9821360228 #### [facility] (DEFAULT) [address] [place] [address] 25439 UA Clarity CLEAR Normal CLEAR [facility] Comment on above: Performed By: #### 1 [id number], 3560841470, 7884124, 28261757, 0251309, 0785363275 #### [facility] (DEFAULT) [address] [place] [address] 40505 UA Leuk Est Negative Normal [facility] Comment on above: Performed By: #### 1 [id number], 8176673473, 9180274, 19086830, 4054208, 3441151146 #### [facility] (DEFAULT) [address] [place] [address] 41664 UA Nitrite Negative Normal NEGATIVE [facility] Comment on above: Performed By: #### 1 [id number], 7515824854, 9893347, 22073250, 9686776, 5734611338 #### [facility] (DEFAULT) [address] [place] [address] UA pH 5.5 Normal 5-8 [facility] Comment on above: Performed By: #### 1 [id number], 9988800372, 0637095, 21638311, 0045312, 9439307280 #### [facility] (DEFAULT) [address] [place] [address] UA Protein Negative Normal NEGATIVE [facility] Comment on above: Performed By: #### 1 [id number], 6216358460, 1358493, 17979231, 8758133, 5862566040 #### [facility] (DEFAULT) [address] [place] [address] UA Spec Grav 1.020 Normal 1.001-1.035 [facility] Comment on above: Performed By: #### 1 [id number], 4186996377, 9302679, 99846978, 6397143, 3484818620 #### [facility] (DEFAULT) [address] [place] [address] UA Urobilinogen 0.2 mg/dL Normal 0.2-1.0 [facility] Comment on above: Performed By: #### 1 [id number], 0307454046, 1793386, 66815527, 9748250, 1381972538 #### [facility] (DEFAULT) [address] [place] [address] 51427 Urine Source Clean Catch Normal [facility] Comment on above: Performed By: #### 1 [id number], 1086906428, 1808953, 38695845, 7553324, 3894128845 #### [facility] (DEFAULT) [address] [place] [address] Coding Summaryon 12-13-2018 Coding Summary CODING DATE: 019 FINAL [facility] STATUS: Home PAYOR: Self Pay ADMIT [...] Date Saved: 12/13/2018 01:35 pm [facility] Coding Summary CODING DATE: 019 [facility] STATUS: Home PAYOR: Self Pay ADMIT DX: [...] Date Saved: 12/13/2018 01:33 pm [facility] .Auto Diff 1on 12-11-2018 Auto [place] % 7 % Normal 12 [facility] Comment on above: Performed By: #### 1 [id number], 2655664825, 6115191, 82815786, 6377356, 0322797038 #### [facility] (DEFAULT) [address] [place] [address] 54761 Baso Abs# 0.0 x10 Normal 0.0-0.2 [facility] Comment on above: Performed By: #### 1 [id number], 6897048126, 5058746, 65912572, 1027350, 9764442876 #### [facility] (DEFAULT) [address] [place] [address] 78197 Basophils/100 WBC (Bld) 0.3 % Normal 0.2-2.0 [facility] Comment on above: Performed By: #### 1 [id number], 1159605915, 0404652, 79657019, 9460920, 9308821374 #### [facility] (DEFAULT) [address] [place] [address] 29034 Eos Abs# 0.1 x10 Normal 0.0-0.4 [facility] Comment on above: Performed By: #### 1 136741982, 8101548113, 3846023, 89524384, 9670511, 7177936860 #### [facility] (DEFAULT) [address] [place] [address] Eosinophils/100 WBC (Bld) 1.5 % Normal 0.9-4.0 [facility] Comment on above: Performed By: #### 1 [id number], 4112095973, 3817275, 83832644, 5613887, 4946415370 #### [facility] (DEFAULT) [address] [place] [address] Lymphocytes (Bld) [#/Vol] 2.1 x10 Normal 1.3-2.9 [facility] Comment on above: Performed By: #### 1 [id number], 6418191716, 2196664, 10022617, 9679867, 9754609861 #### [facility] (DEFAULT) [address] [place] [address] Lymphocytes/100 WBC (Bld) 29 % Normal 14-48 [facility] Comment on above: Performed By: #### 1 [id number], 3518934923, 8771307, 32749821, 1002852, 9912110394 #### [facility] (DEFAULT) [address] [place] [address] [place] Abs# 0.5 x10 Normal 0.0-0.8 [facility] Comment on above: Performed By: #### 1 [id number], 5633086914, 0322528, 92000228, 9902784, 3386134799 #### [facility] (DEFAULT) [address] [place] [address] Neut Abs# 4.6 x10 Normal 1.5-9.2 [facility] Comment on above: Performed By: #### 1 [id number], 9889546535, 7674499, 27438863, 8244259, 6005188842 #### [facility] (DEFAULT) [address] [place] [address] 03848 Neutrophils/100 WBC (Bld) 63 % Normal 44-88 [facility] Comment on above: Performed By: #### 1 [id number], 1613544581, 8384067, 08101979, 8686289, 7041685229 #### [facility] (DEFAULT) [address] [place] [address] CBC w/ Auto Diffon 9 Erythrocyte distribution width (RBC) [Ratio] 13.1 % Normal 11.5-15.0 [facility] Comment on above: Performed By: #### 1 [id number], 4779819994, 8278618, 16385450, 4122887, 3636902505 #### [facility] (DEFAULT) [address] [place] [address] Hematocrit (Bld) [Volume fraction] 37.8 % Normal 33.7-40.4 [facility] Comment on above: Performed By: #### 1 439855063, 4288569380, 0960552, 11379333, 5630942, 8397161640 #### [facility] (DEFAULT) [address] [place], [place] [address] Hemoglobin (Bld) [Mass/Vol] 12.6 g/dL Normal 11.3-15.9 [facility] Comment on above: Performed By: #### 1 [id number], 0334747197, 0022448, 61238052, 7195373, 6338164489 #### [facility] (DEFAULT) [address] [place] [address] 44919 Man Diff? Auto Normal [facility] Comment on above: Performed By: #### 1 [id number], 8766114749, 8792726, 89212328, 5588599, 3717474256 #### [facility] (DEFAULT) [address] [place] [address] 62115 MCH (RBC) [Entitic mass] 30 pg Normal 24-34 [facility] Comment on above: Performed By: #### 1 [id number], 4308782597, 3190577, 92188321, 8046618, 1498451898 #### [facility] (DEFAULT) [address] [place] [address] MCHC (RBC) [Mass/Vol] 33 g/dL Normal 26-37 [facility] Comment on above: Performed By: #### 1 [id number], 3322220647, 8980464, 93910447, 8583581, 2654284392 #### [facility] (DEFAULT) [address] [place] [address] MCV (RBC) [Entitic vol] 90 fL Normal 81-100 [facility] Comment on above: Performed By: #### 1 [id number], 6859829763, 0801828, 81041900, 7609477, 5889173026 #### [facility] (DEFAULT) [address] [place] [address] Platelet mean volume (Bld) [Entitic vol] 11.6 fL High 6.3-10.2 [facility] Comment on above: Performed By: #### 1 [id number], 3350688095, 7998805, 60459363, 2539322, 7235864114 #### [facility] (DEFAULT) [address] [place] [address] Platelets (Bld) [#/Vol] 117 x10 Low 138-427 [facility] Comment on above: Performed By: #### 1 853540724, 7876181898, 6609857, 01691452, 7908343, 8537197670 #### [facility] (DEFAULT) [address] [place] [address] RBC (Bld) [#/Vol] 4.21 x10 Normal 3.70-5.30 [facility] Comment on above: Performed By: #### 1 [id number], 3015746932, 4524339, 43372721, 2066101, 2327515060 #### [facility] (DEFAULT) [address] [place] [address] WBC (Bld) [#/Vol] 7.3 x10 [facility] Comment on above: Performed By: #### 1 [id number], 0054403411, 0827316, 46953889, 5664824, 5157589510 #### [facility] (DEFAULT) [address] [place] [address] CMP Standardon 12-11-2018 eGFR Non AA >60 [facility] Comment on above: Performed By: #### 1 [id number], 6656961263, 1706399, 29241025, 8747794, 7880138183 #### [facility] (DEFAULT) [address] [place] [address] eGFR AA >60 [facility] Comment on above: Result Comment: Adjunct Professor elizabeth Kidney disease could be indicated at eGFRs of less than 60 ml/min/1.73m2. Kidney Failure is indicated at less than 15 ml/min/1.73m2 Performed By: #### 1 [id number], 2213269415, 4896496, 07471990, 6474574, 7053329751 #### [facility] (DEFAULT) [address] [place] [address] Albumin [Mass/Vol] 4.1 g/dL Normal 3.5-5.0 [facility] Comment on above: Performed By: #### 1 [id number], 6831348081, 3178848, 44041158, 3211532, 1230845098 #### [facility] (DEFAULT) [address] [place], [place] [address] Albumin/Globulin [Mass ratio] 1.3 {ratio} Low 1.4-2.6 [facility] Comment on above: Performed By: #### 1 435553833, 0694422802, 1173950, 75639962, 3392381, 5233722690 #### [facility] (DEFAULT) [address] [place], [place] [address] Alk Phos 35 IU/L Normal 32-91 [facility] Comment on above: Performed By: #### 1 [id number], 3470804461, 7583161, 66037561, 5672940, 5385234043 #### [facility] (DEFAULT) [address] [place] [address] ALT/SGPT 11.0 IU/L Low 14.0-54.0 [facility] Comment on above: Performed By: #### 1 170666801, 0130451709, 9124538, 97839580, 9269229, 8798244793 #### [facility] (DEFAULT) [address] [place] [address] 50501 Anion gap [Moles/Vol] 14.0 mmol/L Normal 5.0-19.0 [facility] Comment on above: Performed By: #### 1 [id number], 3767852777, 9631172, 34033990, 7122971, 6689270411 #### [facility] (DEFAULT) [address] [place] [address] AST/SGOT 18 IU/L Normal 15-41 [facility] Comment on above: Performed By: #### 1 [id number], 4176505786, 4054855, 18922606, 0188854, 4049358099 #### [facility] (DEFAULT) [address] [place] [address] 64940 Bili Total 0.3 mg/dL Normal 0.3-1.2 [facility] Comment on above: Performed By: #### 1 [id number], 0474934661, 4967322, 11912176, 9648007, 9314411034 #### [facility] (DEFAULT) [address] [place] [address] 95408 Calcium [Mass/Vol] 9.6 mg/dL Normal 8.9-10.3 [facility] Comment on above: Performed By: #### 1 450900922, 6673581026, 2264252, 30674076, 0709808, 5924151040 #### [facility] (DEFAULT) [address] [place] [address] 54771 Chloride [Moles/Vol] 106 mmol/L Normal 101-111 [facility] Comment on above: Performed By: #### 1 148607482, 6438495046, 4882519, 02801785, 7634487, 0969053071 #### [facility] (DEFAULT) [address] [place] [address] 75446 CO2 [Moles/Vol] 21 mmol/L Normal 21-32 [facility] Comment on above: Performed By: #### 1 440170215, 3532642316, 0557404, 02010102, 1820175, 0553672555 #### [facility] (DEFAULT) [address] [place] [address] 55477 Creatinine [Mass/Vol] 0.68 mg/dL Normal 0.60-1.30 [facility] Comment on above: Performed By: #### 1 [id number], 9547302028, 9315067, 75565755, 2541293, 7783928770 #### [facility] (DEFAULT) [address] [place] [address] 77401 Globulin (S) [Mass/Vol] 3.1 g/dL Normal 1.5-4.3 [facility] Comment on above: Performed By: #### 1 825579456, 9735509930, 6460958, 16077323, 9311933, 7920835789 #### [facility] (DEFAULT) [address] [place] [address] 23928 Glucose [Mass/Vol] 88.0 mg/dL Normal 74.0-118.0 [facility] Comment on above: Performed By: #### 1 115660339, 0574218247, 6309538, 50187987, 3282568, 4556886510 #### [facility] (DEFAULT) [address] [place] [address] 34805 Osmolality [Osmolality] 272 mOsm/L [facility] Comment on above: Performed By: #### 1 705127375, 3314093465, 0391402, 54731633, 9832305, 9531938810 #### [facility] (DEFAULT) [address] [place] [address] 78400 Potassium [Moles/Vol] 3.5 mmol/L Low 3.6-5.1 [facility] Comment on above: Performed By: #### 1 [id number], 4053508564, 0845440, 63334260, 0828470, 5588186144 #### [facility] (DEFAULT) [address] [place] [address] 76176 Protein [Mass/Vol] 7.2 g/dL Normal 6.5-8.1 [facility] Comment on above: Performed By: #### 1 758971647, 7753151940, 4358747, 66149978, 1475119, 3701031770 #### [facility] (DEFAULT) [address] [place] [address] 38349 Sodium [Moles/Vol] 137.0 mmol/L Normal 136.0-144.0 [facility] Comment on above: Performed By: #### 1 815827278, 9749848767, 0457559, 20971407, 9569141, 6634306845 #### [facility] (DEFAULT) [address] [place] [address] 70214 Urea nitrogen [Mass/Vol] 10 mg/dL Normal 8-26 [facility] Comment on above: Performed By: #### 1 322138064, 2926325330, 1488330, 43626415, 0520612, 4343867964 #### [facility] (DEFAULT) [address] [place] [address] 23532 Urea nitrogen/Creatinine [Mass ratio] 15.0 mg/mg Normal 4.6-16.2 [facility] Comment on above: Performed By: #### 1 630442368, 8444158954, 3034653, 55860168, 0967067, 4462721287 #### [facility] (DEFAULT) [address] [place] [address] 30015 ED Clinical Summaryon 2018 ED Clinical Summary [facility] - Emergency Department [address] [place] [address] ED Clinical Summary PERSON INFORMATION Name: LYNNE ABDI Age: 33 Years Sex: FEMALE : [birth year] MRN: Acct#: Visit Reason: Abdominal pain; ABD PAIN Arrival: 12/11/18 16:56:00 Discharge: 12/11/18 19:08:00 LOS: 000 02:12 Check In: 12/11/18 16:56:00 Checkout:12/11/18 19:08:00 [facility] [address] PCP: Provider, None PROVIDER INFORMATION Provider Role [...] Allergy Information: shellfish PHYSICIAN DOCUMENTATION Patient: LYNNE ABDI Age: 33 years Sex: FEMALE : 89 [...] longer taking Zantac. Patient states she takes utah-exl-emwiwms Tums as needed. Patient denies any fever, chills. She denies any nausea vomiting diarrhea black or tarry stools or blood in the stool. 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 She should call [...] Impression and Plan Diagnosis Epigastric abdominal pain ([id number] R10.13, Discharge, Medical) GERD (gastroesophageal reflux disease) ([id number] K21.9, Discharge, Medical) Plan Condition: Stable. Disposition: [...] provided with information for primary care physician: [facility], , Address: [address] [place] [address]. Please call to schedule a follow up [...] epigastric abdominal discomfort. 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 Patient denied any chest pain or shortness of breath. Following medications patient had improved patient given prescription for omeprazole once daily and Pepcid twice daily for her history of gastric ulcer. Also given information to follow Dr. York in [place] patient states she is from [facility] as well as Dr. Jeffery, or [...] Follow-Up: With: Address: When: Johnny Sarmiento [address] [place] [address] Business (1) Within 3 to 5 days With: Address: When: Remy Jeffery [address] [address] Business (1) Within 3 to 5 days With: Address: When: ISABELL YORK [address] [place], [place] [id number] Business (1) Within 3 to 5 days With: Address: When: Follow up with primary care provider Within 3 to 5 days Comments: You are provided with information for primary care physician: [facility], , Address: [address] [place] [address]. Please call to schedule a follow up [...] understanding of instructions given Comment: [facility] ED Note - Physicianon 2018 ED Note - Physician Patient: LYNNE ABDI Age: 33 years Sex: FEMALE : 89 [...] longer taking Zantac. Patient states she takes xxxz-dwq-anqnnke Tums as needed. Patient denies any fever, chills. She denies any nausea vomiting diarrhea black or tarry stools or blood in the stool. 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 in this afternoon around 2:00 she woke [...] mL inhalation solution: 3 mL, NEB, Once Eugene 5 mg-325 mg oral tablet: 1 tab(s), PO, Once SOLU-Medrol: 125 mg, 2 mL, IM, Once Toradol: 30 mg, 1 mL, IM, Once predniSONE: 50 mg, 1 tab(s), PO, Once Prescriptions Completed Eugene 5 mg-325 mg oral tablet: 1 tab(s), [...] % Auto Lymph % 29 % Auto Portage % 7 % Auto Eos % 1.5 % Auto Baso % 0.3 % Neut Abs# 4.6 x103/mcL Lymph Abs# 2.1 x103/mcL Portage Abs# 0.5 x103/mcL Eos Abs# 0.1 x103/mcL [...] provider which I gave her information for count includes the [facility] services in 3 months. She should [...] Impression and Plan Diagnosis Epigastric abdominal pain ([id number] R10.13, Discharge, Medical) GERD (gastroesophageal reflux disease) ([id number] K21.9, Discharge, Medical) Plan Condition: Stable. Disposition: [...] provided with information for primary care physician: [facility], , Address: [address] [place] [address]. Please call to schedule a follow up [...] epigastric abdominal discomfort. 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 Patient denied any chest pain or shortness of breath. Following medications patient had improved patient given prescription for omeprazole once daily and Pepcid twice daily for her history of gastric ulcer. Also given information to follow Dr. York in [place] patient states she is from [facility] as well as Dr. Jeffery, or [...] 12/12/2018 Pt was seen yesterday. 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 This was corrected, and pt picked it up. [Electronically Signed on: 12/12/2018 12:19 EST] Jacobo SPENCE Jerrell Lopez [facility] ED Note-Nursingon 12-11-2018 ED Note-Nursing Patient arrives with c/o epigastric pain/burning that goes to her back. Patient rates pain a 6/10 prior to medication. Hisotry of GERD No nausea/vomiting/diarrhea and no pain with urination. [facility] ED Patient Education Noteon 12-11-2018 ED [...] vinegar, hot sauces, and barbecue sauce. ? Cataño fruit juices and citrus fruits, such as oranges, jose guadalupe, and limes. ? Tomato-based foods, such as red sauce, chili, salsa, and pizza with red sauce. ? Fried and fatty foods, such as donuts, iranian fries, potato chips, and high-fat dressings. ? [...] any changes in your symptoms. ? Take ckpm-cuy-rzxslvq and prescription medicines only as told by [...] 08/24/2006 Document Revised: 04/13/2017 Document Reviewed: 03/10/2016 [employer]of[employer]me Interactive Patient Education ? 2017 [employer] Abdominal Pain, Adult Abdominal pain can [...] Follow these instructions at home: ? Take khjk-biw-qbwulmc and prescription medicines only as told by [...] 08/24/2006 Document Revised: 06/03/2017 Document Reviewed: 04/27/2017 Elsevier Interactive Patient Education ? 2017 [employer]. Normal [facility] ED Patient Summaryon 019 ED Patient Summary [facility] - Emergency Department [address] [place] [address] PATIENT DISCHARGE INSTRUCTIONS Patient Information Name: LYNNE ABDI Age: 33 Years Date of : [birth year] Reason For Visit: Abdominal pain; ABD PAIN Arrival Time: 12/11/18 16:56:00 Primary Care Physician: Provider, None Attending Physician: Herman Adam MD Comment: Visit Diagnosis: Diagnoses This Visit Abdominal pain ([id number]) Epigastric abdominal pain (R10.13) GERD (gastroesophageal reflux [...] documents With: Address: When: Johnny Sarmiento [address] [place] [address] Business (1) Within 3 to 5 days With: Address: When: Remy Jeffery [address] [facility], [facility] [address] [place] [address] Business (1) Within 3 to 5 days With: Address: When: ISABELL YORK [address] [place] [address] [phone] Business (1) Within 3 to 5 days With: Address: When: Follow up with primary care provider Within 3 to 5 days Comments: You are provided with information for primary care physician: [facility], , Address: [address] [place] [address]. Please call to schedule a follow up [...] and treatment you received today in the [facility] Emergency Department were for an urgent problem and are not intended as complete care. It is important for you to follow up with a doctor, nurse practitioner, or physician?s student assistant for ongoing care. If your symptoms [...] so we can reach you if necessary. [facility] Emergency Department has provided you with a complete list of medications post discharge. Please inform your manager commercial/provider of your visit and for further instruction [...] vinegar, hot sauces, and barbecue sauce. ? Cataño fruit juices and citrus fruits, such as oranges, jose guadalupe, and limes. ? Tomato-based foods, such as red sauce, chili, salsa, and pizza with red sauce. ? Fried and fatty foods, such as donuts, iranian fries, potato chips, and high-fat dressings. ? [...] any changes in your symptoms. ? Take jzcf-hll-vkgrfau and prescription medicines only as told by [...] 08/24/2006 Document Revised: 04/13/2017 Document Reviewed: 03/10/2016 videof.me Interactive Patient Education ? 2017 [employer] Inc. Abdominal Pain, Adult Abdominal pain can [...] Follow these instructions at home: ? Take ynzn-tkm-lyfovbl and prescription medicines only as told by [...] 08/24/2006 Document Revised: 06/03/2017 Document Reviewed: 04/27/2017 videof.me Interactive Patient Education ? 2017 [employer]. Viruses or Bacteria What?s got you sick? [...] Control and Prevention July 2014 [facility] Extra Redon 12-11-2018 Tube Collected Yes [facility] Comment on above: Performed By: #### 1 [id number], [id number], [id number], [id number] #### [facility] (DEFAULT) [address] [place] [address] 78442 Lactic Acidon 12-11-2018 Lactate [Moles/Vol] 7.7 mg/dL Normal 4.5-19.8 [facility] Comment on above: Performed By: #### 2 [id number] ####[facility] (DEFAULT)[address] [place] [address]001 Lipaseon 12-11-2018 Lipase Level 38.0 IU/L Normal 22.0-51.0 [facility] Comment on above: Performed By: #### 1 [id number], [id number] #### [facility] (DEFAULT) [address] [place], [place] [id number] Test Urine 1on U Preg Negative [facility] Comment on above: Performed By: #### 3 [id number], [id number] #### [facility] (DEFAULT) [address] [place] [address] 92215 U Preg Internal Control Pass [facility] Comment on above: Performed By: #### 3 [id number], [id number] #### [facility] (DEFAULT) [address] [place] [address] 50620 UA w Culture if Ind Standard on 12-11-2018 Breakpoint UA [facility] Comment on above: Performed By: #### 3 [id number], [id number] #### [facility] (DEFAULT) [address] [place] [address] 78681 Color (U) YELLOW [facility] Comment on above: Performed By: #### 3 [id number], [id number] #### [facility] (DEFAULT) [address] [place] [address] 95799 Culture? Not Indicated [facility] Comment on above: Performed By: #### 3 [id number], [id number] #### [facility] (DEFAULT) [address] [place] [address] 58609 Glucose (U) [Mass/Vol] Negative [facility] Comment on above: Performed By: #### 3 [id number], [id number] #### [facility] (DEFAULT) [address] [place] [address] 02247 Ketones Ql (U) Negative [facility] Comment on above: Performed By: #### 3 [id number], [id number] #### [facility] (DEFAULT) [address] [place] [address] 06278 Micro? Not Indicated [facility] Comment on above: Performed By: #### 3 [id number], [id number] #### [facility] (DEFAULT) [address] [place] [address] 85945 UA Bilirubin Negative Normal [facility] Comment on above: Performed By: #### 3 [id number], [id number] #### [facility] (DEFAULT) [address] [place] [address] 43574 UA Blood Negative Normal NEGATIVE [facility] Comment on above: Performed By: #### 3 [id number], [id number] #### [facility] (DEFAULT) [address] [place] [address] 37258 UA Clarity CLEAR Normal CLEAR [facility] Comment on above: Performed By: #### 3 [id number], [id number] #### [facility] (DEFAULT) [address] [place] [address] 97572 UA Leuk Est Negative Normal NEGATIVE [facility] Comment on above: Performed By: #### 3 [id number], [id number] #### [facility] (DEFAULT) [address] [place] [address] 69931 UA Nitrite Negative Normal NEGATIVE [facility] Comment on above: Performed By: #### 3 [id number], [id number] #### [facility] (DEFAULT) [address] [place] [address] 60296 UA pH 6.0 5-8 [facility] Comment on above: Performed By: #### 3 [id number], [id number] #### [facility] (DEFAULT) [address] [place] [address] 44316 UA Protein Negative Normal NEGATIVE [facility] Comment on above: Performed By: #### 3 [id number], [id number] #### [facility] (DEFAULT) [address] [place] [address] 80647 UA Spec Grav >=1.030 1.001-1.035 [facility] Comment on above: Performed By: #### 3 [id number], [id number] #### [facility] (DEFAULT) [address] [place] [address] 93170 UA Urobilinogen 0.2 mg/dL Normal 0.2-1.0 [facility] Comment on above: Performed By: #### 3 [id number], [id number] #### [facility] (DEFAULT) [address] [place] [address] 86571 Urine Source Clean Catch Normal [facility] Comment on above: Performed By: #### 3 [id number], [id number] #### [facility] (DEFAULT) [address] [place] [address] C-SPINE WO CONon 09-19-[address] C-SPINE WO CON [address] [place] [address] Patient: LYNNE ABDI Exam Date: 09/18/2017DOB: 1985 Gender:F : DR BURKE HOPE . Admission #: [id number] : Order #: [id number] HERE TO VIEW EXAM RADIOLOGY REPORT CT [...] Magana M.D. on 09/27/2017 at 11:32 Normal [facility] Vital Signs Date Time Vital Sign Value Performing Clinician Facility 01-14-2025 17:30-0500 Body temperature 98.1 [degF] Serg Vargas DO Work Phone: [email or web address] 01-14-2025 17:00-0500 Diastolic blood pressure 100 mm[Hg] Serg Vargas DO Work Phone: [facility] [employer] 01-14-2025 17:00-0500 Heart rate 97 /min [facility] 01-14-2025 17:00-0500 Respiratory rate 16 /min Serg Vargas DO Work Phone: [facility] [employer] 01-14-2025 17:00-0500 SaO2% (BldA) [Mass fraction] 93 % Serg Vargas DO Work Phone: [employer] 01-14-2025 17:00-0500 Systolic blood pressure 146 mm[Hg] [facility] 01-14-2025 10:37-0500 Body height 180.3 cm Serg Vargas DO Work Phone: [facility] [employer] 01-14-2025 10:37-0500 Body mass index (BMI) [Ratio] 30.54 kg/m2 Serg Vargas DO Work Phone: [facility] [employer] 01-14-2025 10:37-0500 Body weight 99.34 kg Serg Vargas DO Work Phone: [facility] [employer] 12-19-2024 11:30-0500 Body temperature 97.5 [degF] Serg Vargas DO Work Phone: [employer] 12-19-2024 11:30-0500 Diastolic blood pressure 89 mm[Hg] Serg Vargas DO Work Phone: [facility] [employer] 12-19-2024 11:30-0500 Heart rate 96 /min Serg Vargas DO Work Phone: [facility] [employer] 12-19-2024 11:30-0500 Respiratory rate 15 /min Serg Vargas DO Work Phone: [email or web address] 12-19-2024 11:30-0500 SaO2% (BldA) [Mass fraction] 98 % Serg Vargas DO Work Phone: [facility] [employer] 12-19-2024 11:30-0500 Systolic blood pressure 121 mm[Hg] Serg Vargas DO Work Phone: [facility] [employer] 12-19-2024 09:20-0500 Body height 180.3 cm Serg Vargas DO Work Phone: [facility] [employer] 12-19-2024 09:20-0500 Body mass index (BMI) [Ratio] 30.6 kg/m2 Serg Vargas DO Work Phone: [facility] [employer] 12-19-2024 09:20-0500 Body weight 99.52 kg Serg Vargas DO Work Phone: [facility] [employer] 09-12-2024 14:41-0400 Body height 180.3 cm Buffy Jinny APPLICATIONS SUPPORT ENGINEER-CARTON MARKER MACHINE Work Phone: [employer] 09-12-2024 14:41-0400 Body mass index (BMI) [Ratio] 28.17 kg/m2 Buffy Jinny APPLICATIONS SUPPORT ENGINEER-CARTON MARKER MACHINE Work Phone: [employer] 09-12-2024 14:41-0400 Body weight 91.63 kg Buffy Jinny APPLICATIONS SUPPORT ENGINEER-CARTON MARKER MACHINE Work Phone: [employer] 09-12-2024 14:41-0400 Diastolic blood pressure 80 mm[Hg] Buffy Stearns APPLICATIONS SUPPORT ENGINEER-CARTON MARKER MACHINE Work Phone: [employer] 09-12-2024 14:41-0400 Systolic blood pressure 122 mm[Hg] Buffy Stearns APPLICATIONS SUPPORT ENGINEER-CARTON MARKER MACHINE Work Phone: [employer] 08-16-2023 15:40-0400 Body height 178.44 cm Keron Carson Other [employer] Other 08-16-2023 15:40-0400 Body mass index (BMI) [Ratio] 30.91 kg/m2 Keron Carson Other [employer] Other 08-16-2023 15:40-0400 Body weight 98.43 kg Keron Carson Other [employer] Other 08-16-2023 15:40-0400 Diastolic blood pressure 80 mm[Hg] Keron Carson Other [employer] Other 08-16-2023 15:40-0400 Systolic blood pressure 132 mm[Hg] Keron Carson Other [employer] Other 02-24-2023 14:00-0400 Body height 178.44 cm Keron Carson Other [employer] Other 12-23-2022 14:40-0500 Body height 178.44 cm Keron Carson Other [employer] Other 12-23-2022 14:40-0500 Body mass index (BMI) [Ratio] 30.63 kg/m2 Keron Carson Other [employer] Other 12-23-2022 14:40-0500 Body weight 97.52 kg Keron Carson Other [employer] Other 10-12-2022 14:00-0500 Body height 178.44 cm Keron Carson Other [employer] Other 10-12-2022 14:00-0500 Body mass index (BMI) [Ratio] 31.05 kg/m2 Keron Carson Other [employer] Other 10-12-2022 14:00-0500 Body weight 98.88 kg Keron Carson Other [employer] Other 09-11-2022 12:00-0400 Body temperature 98.3 [degF] PHYSICIAN NO [facility] 09-11-2022 12:00-0400 Diastolic blood pressure 91 mm[Hg] PHYSICIAN NO [facility] 09-11-2022 12:00-0400 Heart rate 69 /min PHYSICIAN NO [facility] 09-11-2022 12:00-0400 Respiratory rate 12 /min PHYSICIAN NO [facility] 09-11-2022 12:00-0400 SaO2% (BldA) [Mass fraction] 95 % PHYSICIAN NO [facility] 09-11-2022 12:00-0400 Systolic blood pressure 149 mm[Hg] PHYSICIAN NO [facility] 09-11-2022 04:33-0400 Body weight 98.2 kg PHYSICIAN NO [facility] 09-11-2022 00:00-0400 Inhaled oxygen concentration 95 % PHYSICIAN NO [facility] 09-10-2022 10:30-0400 Inhaled oxygen flow rate 2 L/min PHYSICIAN NO [facility] 09-10-2022 07:04-0400 Body height 180.34 cm PHYSICIAN NO [facility] 09-10-2022 07:04-0400 Body mass index (BMI) [Ratio] 28.7 kg/m2 PHYSICIAN NO [facility] 06-29-2022 10:45-0400 Body height 178.44 cm Henok Crawford Other [employer] Other 06-29-2022 10:45-0400 Body mass index (BMI) [Ratio] 31.05 kg/m2 Henok Crawford Other [employer] Other 06-29-2022 10:45-0400 Body weight 98.88 kg Henok Crawford Other [employer] Other Encounters Encounter Date Encounter Type Care Provider Facility Start: 01-29-2025 End: 01-29-2025 ambulatory SERG VARGAS [facility] Start: 01-29-2025 End: 01-29-2025 Subsequent hospital visit by physician Nely Cruz PA-C Work Phone: [facility] Comment on above: UTI symptoms Start: 01-14-2025 End: 01-14-2025 ambulatory SERG VARGAS [facility] Start: 01-14-2025 End: 01-14-2025 Subsequent hospital visit by physician Serg Vargas DO Work Phone: [facility] Comment on above: Post-op pain (Primar y Dx); 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)(female); Hyperactivity of bladder; Female cystocele; Rectocele; Uterine prolapse Start: 01-02-2025 End: 01-02-2025 ambulatory NELY CRUZ [facility] Start: 01-02-2025 Encounter for other preprocedural examination NELY CRUZ [facility] Start: 01-02-2025 End: 01-02-2025 Patient encounter status Nely Cruz PA-C Work Phone: [facility] Start: 01-02-2025 End: 01-02-2025 Subsequent hospital visit by physician Nely Cruz PA-C Work Phone: [facility] Comment on above: Pre-op testing Start: 12-19-2024 End: 12-19-2024 ambulatory SERG [facility] Start: 12-19-2024 End: 12-19-2024 Subsequent hospital visit by physician Serg Vargas DO Work Phone: [facility] [place] Start: 09-12-2024 End: 09-12-2024 Office outpatient visit 15 minutes Buffy Stearns APPLICATIONS SUPPORT ENGINEER-CARTON MARKER MACHINE Work Phone: [facility] Obstetric[facility]Gynecology Comment on above: Cystocele with prola pse (Primary Dx) Start: 09-12-2024 End: 09-12-2024 ambulatory [facility] Jessica STEARNS [facility] Start: 12-21-2023 End: 12-21-2023 ambulatory Facility:[facility] Start: 09-02-2023 End: 09-02-2023 ambulatory Keron Carson Other [employer] Other Start: 09-02-2023 Telephone encounter Keron Carson [facility] [employer] Start: 08-16-2023 End: 08-16-2023 ambulatory Keron Carson Other [employer] Other Start: 08-16-2023 Office outpatient vi sit 15 minutes Keron Carson [facility] Start: 02-24-2023 End: 02-24-2023 ambulatory Keron Carson Other [employer] Other Start: 02-24-2023 Office outpatient vi sit 15 minutes Keron Carson [facility] Start: 02-17-2023 End: 02-17-2023 ambulatory Keron Carson Facility:[facility] Start: 02-17-2023 End: 02-17-2023 ambulatory NON STAFF [facility] Work Phone: Start: 02-17-2023 End: 02-17-2023 Patient encounter procedure [facility] [place] Work Phone: Start: 12-23-2022 End: 12-23-2022 ambulatory Keron Carson Other [employer] Other Start: 12-23-2022 Office outpatient vi sit 15 minutes Keronsmiley Carson [facility] Neurosurgery Start: 12-21-2022 End: 12-21-2022 ambulatory Keron Carson Facility:[facility] Start: 12-21-2022 End: 12-21-2022 ambulatory NON STAFF [facility] Work Phone: Start: 12-21-2022 End: 12-21-2022 Patient encounter procedure MD Keron Carson Work Phone: [facility] [place] Work Phone: Start: 10-12-2022 End: 10-12-2022 ambulatory Keron Carson Other [employer] Other Start: 10-12-2022 Postop follow up vis it related to original px Keron Carson [facility] Neurosurgery Start: 10-01-2022 End: 10-01-2022 ambulatory Keron Carson Facility:[facility] Start: 10-01-2022 End: 10-01-[address] [facility] Work Phone: Start: 10-01-2022 End: 10-01-2022 Patient encounter procedure PHYSICIAN NO [facility] [place] Start: 09-10-2022 Admission to same da y surgery center Keron Carson [facility] Start: 09-10-2022 End: 09-10-2022 ambulatory Keron Carson Other [employer] Other Start: 09-09-2022 End: 09-09-2022 ambulatory Keron Carson Other [employer] Other Start: 09-09-2022 Patient encounter procedure Keron Carson [facility] Start: 09-08-2022 End: 09-08-2022 ambulatory Keron Carson Other [employer] Other Start: 09-08-2022 Patient encounter procedure Keron Carson [facility] Start: 09-07-2022 End: 09-11-2022 Evaluation and management of inpatient PHYSICIAN NO FAMILY Facility:[facility] Start: 09-07-2022 End: 09-11-2022 Evaluation and management of inpatient PHYSICIAN NO FAMILY [facility] Start: 07-20-2022 End: 07-20-2022 ambulatory Henok Crawford Other [employer] Other Start: 07-20-2022 Telephone encounter Henok Benavidezgiulianolalo [facility] Start: 06-29-2022 End: 06-29-2022 ambulatory Henok Crawford Other [employer] Other Start: 06-29-2022 [facility] visit new patient Henok Crawford [facility] Start: 09-19-2017 End: 09-19-2017 Ambulatory BURKE HOPE Facility:[facility]1 Procedures Date Procedure Procedure Detail Performing Clinician Start: 01-02-2025 Ecg routine ecg w/le ast 12 lds w/i&r Serg Vargas DO Work Phone: Start: 01-02-2025 Basic metabolic pane l calcium total Serg Vargas DO Work Phone: Start: 01-02-2025 Blood typing serologic abo Serg Vargas DO Work Phone: Start: 12-19-2024 Urine test visual color cmprsn meths Serg Vargas DO Work Phone: Start: 02-17-2023 X-ray of cervical spine Start: 12-21-2022 X-ray of cervical spine MD Keron Carson Work Phone: Start: 10-01-2022 X-ray of cervical spine PHYSICIAN NO FAMILY Start: 09-10-2022 X-ray of cervical spine PHYSICIAN NO FAMILY Start: 09-07-2022 X-ray of cervical spine PHYSICIAN NO FAMILY Start: 08-17-2021 Microscopic observat ion [Identifier] in Cervix by Cyto stain Buffy Krotzer APPLICATIONS SUPPORT ENGINEER-CARTON MARKER MACHINE Work Phone: Plan of Treatment Date Care Activity Detail Author Start: 09-12-2025 Adult BMI Screening Adult BMI Screening [facility] Start: 09-12-2025 Tobacco Screening Tobacco Screening [facility] Start: 02-22-2025 End: 02-22-2025 Patient encounter procedure 02/22/2025 9:30 AM EDT Office Visit [facility] [address] [place] [address] [place] [address] [place] [address] 6 WK PO [facility] Comment on above: 6 WK PO Start: 02-21-2025 End: 02-21-2025 Patient encounter procedure 02/21/2025 1:45 PM EDT Office Visit [facility] [address] [place] [address] Serg Vargas, DO [address] [facility] [address] [place] [address] 6 WK PO [facility] Comment on above: 6 WK PO Start: 01-21-2025 End: 01-21-2025 Patient encounter procedure 01/21/2025 1:45 PM EST Office [facility] [address] [place] [address] Kimi Bird APRN - CARTON MARKER MACHINE [address] [facility] [address] [place] [address] 1 WK PO [facility] Comment on above: 1 WK PO Start: 01-14-2025 End: 01-14-2025 Admission to same day surgery center 01/14/2025 12:30 PM EST - 01/14/2025 3:00 PM EST [place] [facility] [place] [address] [place] [address] Serg Vargas, [address] [place] [address] HYSTERECTOMY VAGINAL ANTERIOR AND POSTERIOR REPAIR [facility] [place] Comment on above: HYSTERECTOMY VAGINAL ANTERIOR AND FLEA MARK[employer] SELLER IOR REPAIR Start: 01-14-2025 End: 01-14-2025 Laparoscopy w/rmvl adnexal structures [facility] Start: 01-14-2025 End: 01-14-2025 Ndsc njx implt matrl urt&/bldr nck [facility] Start: 01-14-2025 Subsequent hospital visit by physician 01/14/2025 12:30 PM EST Hospital Encounter [facility] [place] [address] [place] [address] Serg Vargas, [address] [place] [address] [facility] [place] Start: 01-14-2025 End: 01-14-2025 Vaginal hysterectomy uterus 250 gm/< [facility] Start: 12-19-2024 End: 12-19-2024 Cystourethroscopy CYSTOSCOPY SUPRAPUBIC TUBE PLACEMENT Chronic bladder pain Incomplete bladder emptying 12/19/2024 10:25 AM EST [facility] Start: 08-17-2024 Screening for malignant neoplasm of cervix Pap Smear [facility] Start: 07-29-2024 COVID-19 Vaccine ( season) COVID-19 Vaccine () [facility] Start: 07-29-2024 COVID-19 Vaccine ( season) COVID-19 Vaccine ( season) [facility] Start: 07-29-2024 COVID-19 Vaccine ( season) COVID-19 Vaccine ( season) [facility] Start: 07-29-2024 Influenza vaccination Influenza Vaccine [facility] Start: 06-28-2024 Influenza vaccination Flu vaccine (#1) [facility] Start: 11-09-2023 Adult BMI Follow Up Plan Adult BMI Follow Up Plan [facility] Start: 2022 Diabetes screen Diabetes screen [facility] Start: 09-11-2022 [facility] Start: 09-10-2022 [facility] Start: 09-07-2022 Consultation [facility] Start: 09-07-2022 Fusion of 2 or more Cervical Vertebral Joints with Autologous Tissue Substitute, Posterior Approach, Posterior Column, Open Approach Fusion of 2 or more Cervical Vertebral Joints with Autologous Tissue Substitute, Posterior Approach, Posterior Column, Open Approach [facility] Start: 09-07-2022 Release Cervical Nerve, Open Approach Release Cervical Nerve, Open Approach [facility] Start: 09-07-2022 Resection of Cervical Vertebral Disc, Open Approach Resection of Cervical Vertebral Disc, Open Approach [facility] Start: 2017 Screening for malignant neoplasm of cervix [facility] Start: 2008 Screening for malignant neoplasm of cervix Pap smear [facility] Start: 2006 DTaP,Tdap and Td Vaccines (1 - Tdap) DTaP,Tdap and Td Vaccines (1 - Tdap) [facility] Start: 2006 DTaP/Tdap/Td vaccine (1 - Tdap) DTaP/Tdap/Td vaccine (1 - Tdap) [facility] Start: 2006 Hepatitis B vaccine (1 of 3 - 19+ 3-dose series) Hepatitis B vaccine (1 of 3 - 19+ 3-dose series) [facility] Start: 2005 Hepatitis C screening Hepatitis C screen [facility] Start: 2002 HIV screening HIV screen [facility] Start: 2000 Varicella vaccine (1 of 2 - 13+ 2-dose series) Varicella vaccine (1 of 2 - 13+ 2-dose series) [facility] Start: 1999 Depression Screen Depression Screen [facility] Start: 1999 Depression Screening Depression Screening [facility] End: 01-14-2025 Blood glucose - POCT Blood glucose - POCT Point of Care Testing Routine One Time for 1 Occurrences starting 01/14/2025 until 01/14/2025 [facility] Comment on above: One Time for 1 Occurrences starting 12/29 until 01/14/2025 End: 01-29-2025 Culture, Urine [facility] Comment on above: 1 Occurrences starting 01/29/2025 until 01/29/2025 End: 01-14-2025 Hemoglobin and Hematocrit Hemoglobin and Hematocrit Lab Routine One Time for 1 Occurrences starting 01/14/2025 until 01/14/2025 [facility] Comment on above: One Time for 1 Occurrences starting 12/29 until 01/14/2025 End: 12-19-2024 INITIATE PACU OXYGEN THERAPY PROTOCOL Initiate PACU Oxygen Therapy Protocol Respiratory Care Routine Continuous until discontinued starting 12/19/2024 [facility] Phone: Comment on above: Continuous until discontinued starting 0 12/19/2024 End: 01-14-2025 INITIATE PACU OXYGEN THERAPY PROTOCOL Initiate PACU Oxygen Therapy Protocol Respiratory Care Routine Continuous until discontinued starting 01/14/2025 [facility] Phone: Comment on above: Continuous until discontinued starting 0 01/14/2025 Oxygen therapy [Mini mum Data Set] Initiate Oxygen Therapy Protocol Respiratory Care Routine As Needed until discontinued starting 12/19/2024 [facility] Phone: Comment on above: As Needed until discontinued starting Oxygen therapy [Mini mum Data Set] Initiate Oxygen Therapy Protocol Respiratory Care Routine As Needed until discontinued starting 01/14/2025 [facility] Phone: Comment on above: As Needed until discontinued starting Pathology study Surgical Patholo gy Lab Routine 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)(female) Hyperactivity of bladder Female cystocele Rectocele Uterine prolapse Release Upon Ordering for 1 Occurrences starting 01/14/2025 [facility] Work Phone: Comment on above: Release Upon Ordering for 1 Occurrences starting 01/14/2025 Patient referral [facility] Robi yasir [facility] Work Phone: End: 12-19-2024 , urine POCT , urine POCT Point of Care Testing Routine One Time for 1 Occurrences starting 12/19/2024 until 12/19/2024 [facility] Comment on above: One Time for 1 Occurrences starting 11/29 until 12/19/2024 End: 01-14-2025 , urine POCT , urine POCT Point of Care Testing Routine One Time for 1 Occurrences starting 01/14/2025 until 01/14/2025 [facility] Comment on above: One Time for 1 Occurrences starting 12/29 until 01/14/2025 Immunizations Immunization Date Immunization Notes Care Provider [facility] 10-12-2022 influenza virus vaccine, unspecified formulation Buffy 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 Payers Date Payer Category Payer Private Health Insurance [id number] 2022 Self-pay [id number] 2020 Unknown [id number] 2020 Private Health Insurance [id number] 2018 Unknown [id number] 1999 Medicaid [id number] 1987 Unknown [id number] 1987 Unknown [id number] 75 1987 Unknown [id number] 75 1987 Unknown [id number] 75 1987 Unknown [id number] 75 1959 Private Health Insurance [id number] Medicaid [employer] [id number] Private Health Insurance [employer] [id number] Unknown [id number] [id number] Unknown Regular Auto/Liability [id number] Unknown [id number] 31 Unknown [id number] 31 Unknown [id number] 31 Unknown [id number] 31 Social History Date Type Detail Facility Start: 12-19-2024 End: 01-14-2025 Sex Assigned At [facility] Other Start: 09-10-2022 End: 09-27-2024 Tobacco smoking status NEIS Ex-smoker (finding) [facility] Start: 1985 Sex Assigned At Female [facility] End: 07-29-2016 History of tobacco use Current smoker [facility] End: 07-29-2016 History of tobacco use Cigarette Smoker [facility] Start: 09-12-2024 End: 09-27-2024 Tobacco use and exposure Smokeless tobacco non-user [facility] Start: 12-19-2024 End: 01-29-2025 Alcoholic beverage intake Current drinker of alcohol (finding) [facility] Start: 12-19-2024 End: 01-14-2025 History of Social function [facility] Physical abuse Denies [facility] Start: 09-25-2024 Alcohol Comment social Bon [facility] Start: 07-31-2021 Gender identity Identifies as female gender (finding) [facility] Start: 07-31-2021 Sexual orientation Heterosexual (finding) [facility] Start: 01-24-2020 Alcohol Comment ocassional, not often [facility] Start: 01-15-2016 Sex Female (finding) [facility] Medical Equipment Procedure Code Equipment Code Equipment Origin al Text Equipment Identifier Dates BONE 7MM DUO FORTITUDE SERIES FDA Start: 09-10-2022 Spinal fixation plate, non-bioabsorbable [id number] FDA Start: 09-10-2022 Spinal fixation plate, non-bioabsorbable ()[id number] FDA Start: 09-10-2022 Intervertebral-b od y internal spinal fixation system [id number] FDA Start: 09-10-2022 BONE 7MM DUO FORTITUDE SERIES FDA Start: 09-10-2022 BONE 7MM DUO FORTITUDE SERIES FDA Start: 09-10-2022 System Bulking P rc Bulkamid [facility] - [id number] Start: 01-14-2025 Comment on above: Description: X1 BOX used, X2 SYRINGES injected. Goals Date Patient Goal Desired Activity /State Functional Status Date Assessment Result Facility 09-11-2022 Functional status Patient at [facility] Work Phone: Mental Status Date Assessment Result Facility 09-11-2022 Cognitive function Cognitive Sta tus Patient at [facility] Work Phone: Clinical Notes 06-29-2022 to 01-13-2025 Discharge InstructionsAttaCely Vines RN - 01/03/2025 3:30 PM ESTDischarge InstructionsCely Wells RN - 12/14/2024 3:35 PM EST Note Date & Type Note Facility 01-13-2025 Hospital Discharge instructions Christina Moreau DO - 01/13/2025 8:51 AM EST Images from the original note were not included. [facility] UROGYNECOLOGY & PELVIC REHABILITATION POSTOPERATIVE PATIENT INSTRUCTIONS MAJOR & MINOR SURGICAL PROCEDURES Congratulations! You have taken the brave step of undergoing surgery in order to try to improve your health. Now it is time to focus on healing outside of the hospital / surgery center setting. To make your dismissal as successful as possible, it is recommended that you thoroughly review these postoperative instructions. These instructions pertain to, but are not limited to the following procedures: MAJOR Hysterectomy - Vaginal / Laparoscopic / Robotic With or Without tube-ovarian Removal (Salpingo-oophorectomy) Sacrocolpopexy / Sacroperineopexy / Sacrocervicopexy/ Hysteropexy (lifting apex to sacrum) Major Vaginal Prolapse repairs Cystocele repair (Anterior Colporrhaphy) Rectocele repair (Posterior Colporrhaphy) Enterocele repair Vaginal vault repair Closing or removal of the vagina (Colpocleisis / Colpectomy) Major urinary incontinence surgery (Espinosa Urethropexy, MMK) Major fibroid removal (Myomectomy) Major tubal surgery (re-anastomosis, ectopic , pelvic inflammatory disease) Major surgery for adhesions or endometriosis involving bowel Major vaginal mesh removal Fistula repair of the bladder or colorectum to the vagina Creation of a new vagina (Neovaginoplasty) or repair of a Mullerian Anomaly Other MINOR Hysteroscopy with Dilatation / Curettage, Endometrial Ablation / Hysterosalpingogram (HSG) Laparoscopy With or Without minor tubal or ovarian surgery Minor Vaginal Prolapse repairs Cystocele repair (Anterior Colporrhaphy) Rectocele repair (Posterior Colporrhaphy) Urethrocele repair Minor urinary incontinence surgery (Slings, Transurethral Bulking) Minor vaginal surgery (Mesh removal, Laser ablation, Biopsies, Labial revisions, Injections) Minor surgery of the bladder (DMSO, Hydrodistention, Botox, etc.) Neuromodulation Other 1 2 POST OPERATIVE BASIC INSTRUCTIONS The office will call on the Tuesday, or within 1 week, after your surgery to make sure you are doing well and to answer questions. Your 1st post-op visit will occur within 1-2 weeks after your surgery. Your final post-op visit will occur @ 4-6 weeks depending on the surgery & your desire to return to work. Your surgery and recovery may require more visits in between the 1st and final visits. DO'S, DONT'S, & WHEN TO CALL As reviewed with you on the morning of your discharge, for the 1st week out of surgery below is a QUICK list of DO's, DONT's, and WHEN TO CALL: 5 THINGS YOU MAY DO 5 THINGS YOU MAY NOT DO FOR 4-8 WEEKS -Shower with Ivory Soap and water -Tub bathe, hot tub, or swim -Gradually increase walking - Heavy lifting > 15lbs (2 gallons worth) -Go up and down stairs slowly - Insert anything into the vagina (sex, douching, tampons) -Light housecleaning (dusting, dishwashing) - Drive a car / motorcycle (*See Special Considerations) -Short local travel (restaurant, synagogue) - Long distance travel > 1.5 hours (*See Special Considerations) 5 SYMPTOMS TO CALL FOR: -Sustained fever >100.4 despite Tylenol or a cold shower, especially associated with redness of incision/s -Pain out of the ordinary (>7) despite pain meds / anti-inflammatories -Heavy vaginal bleeding > 1 pad / hour with large red clots -Inability to eliminate urine (especially if catheterized) or flatus / stool (with sustained distention & nausea) -Calf pain or extreme shortness of breath QUESTIONS, CONCERNS, EMERGENCIES Please call the office with any questions or concerns. [phone]. If during office hours, your issue may require an appointment. If after hours, the answering service will connect you with the physician Bottling Supervisor. If you are concerned that your issue may be emergent, PLEASE CALL FIRST. Many issues may be resolved over the phone and avoid an unnecessary and expensive ER visit. If you truly have an emergency related to the surgery and call first: *You will be directed to the hospital ER in which you had your surgery. [facility] or [facility] rarely. [facility] & [facility] patients may be asked to report to [facility] if Dr. Vargas's on-call partner is assuming responsibility. ER visits are ALWAYS covered by insurance (i.e. Charla [place] can go to a [facility] ER.) Calling 1st expedites your care & avoids an unnecessary and costly ambulance transfer to the Hospital. Dial 911 or go to your closest ER if your emergency is related to a potential heart attack or stroke. 3 DISCHARGE MEDICINES Eugene 325/5mg tablets or alternative narcotic. Take 1-2 tablets by mouth every 4-6 hours as needed for pain. Per [facility] Board of Pharmacy laws, only 1 week of narcotics may be prescribed at a time. Do not take extra Tylenol (Acetaminophen) orally as Eugene already contains the medicine. May take 500mg orally every 4-6 hours if off of Eugene. * Ibuprofen 400-800mg is safe to take. Take 1 tablet by mouth every 8 hours for inflammation. Senokot - S. Take two tablets by mouth every night to prevent constipation. Stop if loose stools occur. If an antibiotic is required: Keflex 250-500mg take 1 tablet by mouth 3x / day as prescribed OR Cipro 250-500mg take 1 tablet by mouth 2x / day as prescribed Other medicines may be prescribed based on your post-op course or situation. Zofran 4mg for nausea, Flomax 0.4mg for voiding *You may resume taking any medications you were taking before your surgery, unless told otherwise. DUE TO BLEEDING RISK, DO NOT RESUME HOME ANTICOAGULANTS UNTIL DIRECTED SPECIAL CONSIDERATIONS After surgery, give yourself a chance to adjust and recover. Some patients feel fine within a month. Many need a little extra time. Do not be concerned if you feel fatigued for the first month, your body is recovering. It may take several weeks for you to get your energy back. Even if energy has returned, please do not be tempted to re-engage in strenuous activity. Although mild weight gain is not uncommon, most of it is IV fluid weight that your body will remove with time. You have the rest of your life to exercise, so some patience and rest is zazueta in the short term in order to heal successfully in the shelter. Once you have fully recovered, you may focus on enjoying your life. Keep in mind, you will continue to heal for 6-12 months after surgery, so use common sense to protect your surgery (avoid repetitive heavy lifting, constipation, chronic pelvic strain.) In particular, if you had a hysterectomy, you may have both physical and emotional effects that may be brief or shelter. After hysterectomy, periods will stop, and a woman can no longer achieve . Despite popular myth, post-hysterectomy weight gain is not due to the hysterectomy but is usually a result of other factors. A depressive emotional reaction to loss of the uterus is not uncommon or abnormal. Please discuss any concerns with your health care provider if persistent. Sexual response may change after hysterectomy. There are no definitive studies showing decreased orgasmic potential post-hysterectomy. Some women have a heightened response due to correcting painful pathology. Ovarian removal may decrease estrogenization, leading to vaginal dryness and menopausal hot flashes. Hormonal therapy may need to be discussed. SOME SURGERIES HAVE SPECIAL CONSIDERATIONS MAJOR For all major surgeries listed above, you may drive after your 1week post-op visit if cleared, have discontinued narcotic pain meds, and are able to depress the brake quickly without pain. Long distance travel may be resumed in 4 weeks if stable. With major robotic hysterectomy, you should refrain from intercourse for 8 weeks, other hysterectomies 6 weeks. MINOR Minor surgeries may drive the next day any distance if off narcotic pain meds and are able to brake safely. For minor vaginal surgeries for prolapse and / or urinary incontinence procedures, maintain pelvic rest for 4 weeks. Exercise and work may be resumed within 2-4 weeks depending on healing. For minor surgeries of the vagina, uterus, and bladder, hysteroscopy, D&C, and laparoscopy, maintain pelvic rest for 1-2 weeks depending on healing. Exercise and work may be resumed within the week. 4 CONSENT ITEMS REVISITED IN THE POST OPERATIVE PERIOD Physical and sexual activity will be restricted to varying degrees for an indeterminate period of time, but most often 2-8 weeks depending on the breadth of surgery. It is impossible to list every undesirable effect. The condition for which surgery is done is not always cured or significantly improved, and in rare cases may even worsen. There is no 100% guarantee that the planned surgery, despite everything being done correctly and to the medico-surgical standard, with resolve a condition 100% including but not limited to pain, prolapse, mesh erosion, urinary infections, bladder function, or defecatory dysfunction. Specifically, up to 20% of patients with abdominopelvic pain, 27% of those with UTI's, 16-26% with urinary incontinence or voiding dysfunction, and 40% with defecatory dysfunction may not see substantial long-lasting improvement from a surgical intervention. Dangerous blood clots in the legs or lungs may occur post-operatively. Patients on chronic blood thinners, particularly those without antidote, may be at significant risk of bleeding, hemorrhage, hematoma formation, need for transfusion, and over the regular population. Life-threatening bleeding complications may even occur up to 4 weeks out of surgery even if anticoagulation is managed appropriately. If the patient has been taken off anticoagulation because of bleeding, this could expose her to life-threatening blood clots in the legs or lungs, PA, or stroke. Elderly patients over the age of 70 may experience up to a 2-4% mortality rate in the postsurgical period related to comorbidities and declining health. A living will and code status is recommended to be reviewed. For major outpatient procedures requiring less than a 24 hour stay, you will be dismissed from the hospital or surgery setting when stable and meets criteria for discharge. Less than 5% of patients may rebound to an emergency setting for some of the risks mentioned above even though they have met criteria for dismissal earlier. Outpatient surgical recovery usually occurs between 2 and 4 weeks. For major inpatient procedures requiring an average 0-2-day hospital stay, the patient may not be fully recovered from major surgery for up to 6-8 weeks. Please understand with Medicare and insurance regulations, only 1 night will be approved for most reconstructive or robotic procedures. In regard to reconstructive pelvic and incontinence surgery: Approximately 85% of patients experience a reasonable improvement >5 years in pelvic support and urinary/fecal incontinence, as well as urinary infections, after the procedure. There is a long-term risk of recurrent prolapse in up to 30% of women who have undergone reconstructive surgery if healthy lifestyle behaviors are not maintained. This includes but is not limited to good nutrition, smoking cessation, weight loss in the obese, reduction in heavy lifting, exercise, fall prevention, and bowel regularity. Reconstructive pelvic and/or urinary/fecal incontinence surgeries may only improve your condition/s mildly and may not completely resolve problems including but not limited to urinary tract infections and/or defecatory dysfunction. 17% of patients may still get a urinary tract infection and 40-60% of patients may still experience constipation postoperatively. It may be hard to urinate for a few days or weeks. Sometimes, up to 40% of women cannot urinate efficiently after surgery due to swelling, anesthesia, or pain. Prolonged urinary retention may rarely occur after an incontinence or pelvic prolapse surgery and is more likely if retention predates surgery or includes factors that are not limited to neuropathy, diabetes mellitus, or prior pelvic surgery. The patient may need a catheter to drain the bladder for 1-2 weeks on average. Patients in Dr. Vargas's practice most often prefer a transurethral Martinez. Other choices are a suprapubic catheter or intermittent self-catheterization. The patient has been given instructions on how to manage the type of catheter chosen, which will be reiterated postoperatively. There is a 5% chance of recurrent retention after martinez removal requiring catheter replacement in the office or by ER. Despite evidence indicating no need for antibiotics with a catheter, real world experience shows a 20-40% rate of UTI with a Martinez catheter which depending on personal risk factors and extent of surgery, may require a prophylactic antibiotic afterwards. Antibiotics have risks of resistance, diarrhea, and C. difficile infection. Suprapubic catheters carry a risk of urinoma, bowel injury, and bleeding and have a UTI risk of 15-20%. Intermittent self-catheterization carries an 11% risk of a UTI. In regard to labial or perineal reconstructive surgery: You should expect some bruising and mild swelling with related discomfort following these surgeries that lasts 1-2 weeks. Ice packs and sitz baths may be utilized after surgery to help minimize swelling and discomfort. Mild analgesics are also used. Final optimal results can usually be appreciated in several months. Most patients may return to work or school within a week after surgery; however, strenuous activity or tight clothing is discouraged, and patients must refrain from sexual intercourse for 4-6 weeks after surgery. You may receive a topical antibiotic, which reduces risk of infection. Mild bleeding is not uncommon and can occur postoperatively if strenuous activity or intercourse is begun too early. Problems with healing, such as incision separation, suture popping, scarring, and/or pain following the surgery are rare but can happen. 5 SPECIAL INSTRUCTIONS IF MRSA POSITIVE * Continue Bactroban to the nares 2x / day for 1 week post-operatively. Since many people are colonized in the community, it is not something we will routinely culture for post-operatively. TO PREVENT BLOOD CLOTS IN THE LEGS OR LUNGS / PNEUMONIA IN THE LUNGS Regular walking or calf stretches and wearing a supportive hose may help prevent clots in the legs or lungs. Take home your incentive spirometer if given one and utilize it as instructed to prevent pneumonia Smoking cessation before and after surgery is strongly encouraged. VAGINAL BLEEDING & DISCHARGE You will likely experience light bleeding with the potential for small dime size clots, lasting 2-3 weeks after your surgery. This should NOT be construed as heavy bleeding. You may notice an increase in vaginal discharge 4-6 weeks after your surgery, which may be watery, yellowish, or pinkish. It may have more of an acidic odor. This is common as the vagina flushes out edematous body fluid and dissolves the absorbable sutures. As the healing process progresses, you may experience mild itching within the vagina, as well as outside the vaginal opening. If this itching becomes severe, and/or is accompanied by a foul smell and swelling, please call the office. DRAINS & WOUND CARE If a drain or specific wound care appliance is present at the time of dismissal, please follow additional instructions that may be provided regarding maintenance of the device/s. Basic daily maintenance of a drain is as follows: You may wash around the drain site with warm, soapy water and pat dry with a towel. If indicated, use a topical antibiotic around the drain site 2x / day. Strip or milk the drain from the drain site to the bulb suction 3x / day. This clears any blockage from the drain. Simply pinch the drain at its insertion site into your body between your thumb and forefinger. Then squeeze and pull the drainage tubing as you move towards the drain bulb, allowing the tube to slide between your fingers with mild resistance, you should see a suction effect within the drain tube that moves fluid toward the bulb. Please call the office immediately if the drain falls out or cannot maintain suction. Please call if redness of the drain site increases and is associated with fever, pain, or purulent discharge. CONSTIPATION * Patients are often constipated after a prolonged period of bed rest, or with the use of oral narcotic pain medications. If you have not had a bowel movement for 3 days after you are dismissed from the hospital, or are uncomfortable and unable to pass stool, please try one or all of the following measures in a stepwise manner 1-5 as needed for results: Eat fruits, vegetables, prunes & whole-grain foods. Drink 8 glasses of fluid daily. Add PlumSmart juice. Metamucil, FiberCon, or other bulking medication - use as directed Milk of magnesia - 30 mL's by mouth every 12 hours Dulcolax suppository - 1 suppository per rectum every 4-6 hours Fleets enema - use as directed unless told nothing per rectum (colorectal fistula repair) BLADDER DRAINAGE There is a >70% chance you will void on your own post-operatively. In particular, reconstructive and incontinence surgeries (whether you had incontinence before surgery or not), sometimes have surgical effects of normal swelling and new positioning of the bladder may be associated with some mild to moderate postoperative urinary leakage. Often this leakage is urge related. As discussed, pre-operatively, up to 26% of patients with prolapse and negative urodynamic testing may develop de more incontinence afterwards. Please do not be frustrated if temporary incontinence occurs for it will most likely improve as you continue to heal. Leakage rarely persists in the long-term, there are many options for treatment, and Dr. Vargas and his office staff are there to help you every step of the way. 6 7 BLADDER DRAINAGE FOR THOSE PATIENTS REQUIRING A CATHETER For some postoperative patients, it may be hard for you to urinate for a few days or weeks. Up to 30-40% of women cannot urinate efficiently after surgery due to swelling or anesthesia. This may last a few hours to a few weeks. You may be required to use a catheter in your bladder to help it drain and retrain it to work properly. The most commonly used type of catheter, called an Intraurethral Martinez Catheter (IUC), is placed into the bladder through the urethra. This is usually reserved for large pelvic reconstructive surgeries and timely recovery. Some patients prefer to use a catheter intermittently to empty their bladder. This is called Intermittent Self-Catheterization (ISC). It is an easy technique to learn and helps to lessen the threat of urine infection. A third kind of catheter is called a Suprapubic Catheter (SPC). This catheter is placed through a small incision in the abdomen. A SPC is good for elderly patients or those who are obese and may not be able to insert a catheter, or for complex bladder surgery requiring delayed recovery. Other tubes may help drain fluid from your incision/s. Unless instructed to maintain a catheter to drainage or to rest, you will begin plugging or clamping your catheter in the hospital, and you will leave it plugged/ clamped for set intervals of time. Plugs or clamps will be provided by the nursing staff. You will continue this routine upon dismissal. While your catheter is plugged or clamped, the urine will not drain out of it, and your bladder will fill like it always has naturally. You will be sent home with a smaller day bag that straps to your leg for mobility plus a larger night bag to allow you to rest all night without the need to drain the bag, and cleansing supplies. Depending on the surgery, you will be able to remove your catheter at home within 1-7 days. If you have an Intraurethral Martinez Catheter, plugging / clamping of the catheter helps to wake up the bladder and increases capacity. By the time you come in for your 1st postoperative visit, 95% of patients will be ready to pass a voiding trial and have the catheter removed successfully. During daytime, try plugging until you are comfortably full, then drain your bladder through the catheter into the smaller bag. Your goal should be 2-4 hours of plugging between bladder emptying. You may put your catheter to drain at night into the larger bag. If you are performing Intermittent Self-Catheterization, you should attempt to urinate every hour or so and then catheterize at the end of the time interval to measure how much urine is left in the bladder by emptying the catheter into the measuring hat. If you have a Suprapubic Catheter, during the time that your catheter is plugged /clamped, you should attempt to urinate naturally every hour or so. At the end of the time interval, measure how much urine is left in the bladder by emptying the catheter into the measuring hat. 8 You will not begin progressing through the advancing intervals of the ISC or SPC routine until you are able to urinate normally through your urethra. Until this happens, you will repeat the 4 hour interval over and over. When you have started urinating normally, you will measure how much is left in your bladder at the end of each interval and decide whether you may progress to the next time interval. Please see the respective catheterization routine pertinent to the type of catheter that you may have. Until the 12-hour interval is reached, the catheter should be hooked to the drainage bag every night to drain. After the 1st successful 24-hour interval, please call the office to update one of the nurses. Troubleshooting the Catheter It is not uncommon for the transurethral or suprapubic catheter to leak around the urethra or skin incision respectively as the bladder gets too full. If you have problems with this type of leaking, drain your bladder through the catheter. If leakage continues, reconnect your catheter to the Martinez bag until the next morning, then restart the plugging routine. Please call the office regarding any continued leakage problems. Removing the Catheter The catheter is held in place inside your bladder by a water-filled balloon. Cutting the collar (next to the end of the part you've been plugging) will cause the water inside the balloon to empty out, and the balloon will deflate. You may then remove the catheter by pulling on it gently. Things to Remember You do not need to measure how much you urinate. You need only to measure how much is left in your bladder (which gets drained from the catheter) at the end of the 4-12 hr. plugging / clamping interval. This is known as Residual Urine. You may find it easier to use the larger Martinez bag at night to collect your urine. The larger bag prevents you from having to get up at night to drain your bladder. If you use the Martinez bag, simply restart your most recent plugging interval when you wake up (for example, if you were at the 6-hour interval before bed, start at this interval routine in the morning.) The site where a catheter is inserted into the urethra or abdomen may become pinkish, purplish, or develop a pus-like or crusty substance around it. These are your body's reactions to the catheter's presence and is very normal. You may wash around the catheter daily with soap and water. Rinse and dry these areas well. You may shower while wearing the catheter. Maintain good personal hygiene. If this site develops a redness that spreads, or is warm and painful to the touch, please call the office immediately. When changing from one bag to another, using a clean leg bag or Martinez bag and an alcohol prep. Wash your hands thoroughly with soap and water and swab the end of the drainage tubing that will be attached to the Martinez catheter. Disconnect the drainage bag from the Martinez catheter and put the bag aside. Attach a clean bag to the catheter. Wash your hands thoroughly afterwards. To clean the bags simply empty the urine from the bag and leave the spout open for cleaning. Mix a cup of vinegar and cup of cool water and flush the bag using a 50 mL syringe, or by submerging the bag under the mixture. Once the bag is filled, close the spout, and allow the liquid to stay in the bag for 30 minutes. Drain the cleaning solution and rinse the bag again with tap water. Hang dry with the cap off and the spout open. A commercially prepared urinary appliance wet cleaner machine may also be used as instructed. It is important that when it is time to remove the catheter, do so in the morning, because you will need to urinate every 30-60 minutes on the day that you remove it. This is to keep the bladder empty and compressed, and to allow itself to heal. This is especially important for the suprapubic incision for those with suprapubic catheters. After removing the suprapubic catheter in particular, cover the site with a Band-Aid for the 1st 24-48 hours. Drink at least 2 quarts of liquid a day. Avoid caffeinated drinks as they may irritate the bladder and cause bladder spasms. Please remember to call the office once a week until the catheter is removed with an update on your progress. 9 HOW TO CARE FOR YOUR MARTINEZ CATHETER - FEMALE About this Topic: Martinez catheter is a thin, flexible tube that drains urine from your bladder. The catheter connects to a special bag. The bag holds the urine until you are able to empty the bag. You may need to have a catheter for a short time. You may need a catheter after you are sick or have had surgery. Sometimes a catheter is used for a long time. What Will the Results Be: Your urine will drain and you will prevent infection. What Care is Needed at Home? Ask your doctor what you need to do when you go home. Make sure you ask questions if you do not understand what the doctor says. This way you will know what you need to do. Your doctor may order a home health nurse to come to your house to help you learn to care for your catheter. Prevent infections: Wash your hands before and after handling your catheter. If you switch between a leg bag and an overnight drainage bag, be sure you clean the connection between the catheter and the bag before you switch bags. Ask your doctor what to use to clean the connection. Place a cap on the drainage bag you are not using and store in a clean towel. Rinse the empty drainage bag not in use with 1 cup vinegar mixed with 1 cup water. Care for the tube: Wash the skin around the catheter with soap and water each day. Pat the skin dry. Do not put anything on the tube. Keep the tube secure. Do not let the tube pull or catch when you are moving around during the day. Do not let the tube kink or loop. Care for the Drainage Bag: Keep your urine bag below your bladder. Drain the bag often to help keep you from getting an infection. Wear cotton underwear. What Follow-Up Care Is Needed? Your doctor may ask you to make visits to the office to check on your progress. Be sure to keep these visits. 10 What Lifestyle Changes are Needed? Drink 6-8 glasses of water every day. Take showers rather than soaking in a bath. Will Physical Activity Be Limited? Talk to your doctor about what you can and cannot do when the catheter is in place. What Problems Could Happen? The catheter has a balloon to hold it inside the bladder. The balloon can break or leak and the catheter can fall out. Urine flow stops or is blocked by kinks or bends in the tube or if the drain bag is kept higher than your bladder. You may see blood in the collecting tube or bag. Bladder infection. When Do I Need To Call the Doctor? Signs of infection like a fever of 100.4F (38C) or higher, chills, pain around the catheter, redness or swelling of the skin around the catheter. Urine has blood and it is dark or coffee colored, or is pus-like. Tube comes out or urine stops flowing. Burning or painful feeling in your bladder. You are not feeling better in 2-3 days or you are feeling worse. Teach Back: Helping You Understand The Teach Back Method helps you understand the information we are giving you. The idea is simple. After talking with the staff, tell them in your own words what you were just told. This helps to make sure the staff has covered each thing clearly. It also helps to explain things that may have been a bit confusing. Before going home, make sure you are able to do these: I can tell you about my condition. I can tell you how to prevent infection and care for the tube and bag of my Martinez catheter. I can tell you what I will do if my urine stops flowing or there is a burning or painful feeling in my bladder. 11 At Home Voiding Trial & Intraurethral Martinez Catheter Discontinuation Instructions After your operation, you may experience swelling around the bladder and urethra. Swelling may limit the ability to pass urine naturally through your urethra for several days, thus requiring a temporary Intraurethral Catheter (IUC). If postoperative recovery proceeds in an uncomplicated manner, an at home Voiding Trial (VT) will allow you to easily remove your IUC at home before your 1st postoperative visit to the office. The IUC may be removed on different days depending on surgical intensity to give swelling enough time to resolve. There is the rare chance an IUC may be removed & have to be reinserted if a patient cannot void. If you wake up with an IUC or fail a postop Voiding Trial (VT), you will be sent home with an IUC WITH CLAMP, DAY & NIGHT BAG, & MEASURING HAT. 1. The postop VT allows you to void once postoperatively. If you void 150-200mls, you pass! Otherwise it is best to go home with an IUC. 2. During the day, clamp the IUC for 3-4 hrs. to comfort, then drain into day bag and repeat. 3. The IUC may be changed to the larger night bag for drainage & sleep. An at home VT may be done in / for: DAY 1 ____ Outpatient fashion styling intern surgeries, transurethral bulking injections, incontinence slings, vaginal mesh excisions, & routine hysterectomies DAY 4: 01/18/25 _X___ Site specific cystocele, rectocele, enterocele, vaginal vault repairs, & robotic colpopexies / hysteropexy DAY 7: ____ Larger combined reconstructive procedures (ex: hysterectomy with repairs), Espinosa urethropexy, LeFort colpocleisis DO NOT ____ Fistula repairs, urethral reconstructions, & complex bladder repairs involving opening up the bladder REMOVE 1. Only do VT on WEEKDAYS 2. Grab IUC at the side port 3. Cut the port in half with scissors 4. Allow port to drain completely 5. Pull IUC out of your urethra BLADDER DRAINAGE INSTRUCTIONS Instructions for removing the IUC: If the IUC doesn't come out with gentle pulling, stop & call your healthcare provider right away. Before 8AM on the weekday of the at home VT, disconnect & empty the bag of urine from the IUC. Enter your shower and stand over the drain. Wash your hands with soap and clean, running water. Dry them well. Gather your supplies. This includes scissors and waste-basket. Cut the balloon port on the catheter with the scissors as seen in the picture above. Wait as the water from the balloon empties out of the cut end of the port. Once the balloon is emptied, gently pull out the catheter. Put the used catheter in the waste-basket. Use the towel to wipe up any spilled water or urine if needed. Wash your hands again. You pass your at home VT if you void 150mls within 6 hrs. Call the office to update your voiding status at [phone]. If you cannot void within 6 hrs., call the office for an afternoon visit to learn intermittent self-catheterization (ISC). SPECIAL INSTRUCTIONS Call Dr. Vargas with the following problems: 1. Inability to remove the IUC. 2. You can't urinate within 8 hours after removing the catheter or the bladder is not emptying well. 3. Your belly (abdomen) is painful or bloated. 4. You see a lot of blood in the urine. Light bleeding for 24 hours is normal. 5. Symptoms of a urinary infection (pain, burning, urgency, frequency, or blood). 6. Fever greater than 100.4 F on 2 occasions 4 hours apart. 12 The following attachments cannot be sent through Care Everywhere.scopolamine transdermal (Luxembourgish)documented in this encounter [facility] 01-03-2025 History of Present illness Narrative DAY OF SURGERY/PROCEDURE GUIDELINES As a patient at the [facility], you can expect quality medical and nursing care that is centered on your individual needs. It is our goal to make your surgical experience as comfortable and excellent as possible. ____ The following instructions are general guidelines, if any information on this sheet is different from what your doctor has instructed you to do, please follow your doctor's instructions. Please arrive on 01/14/2025 @ 1100 Enter through entrance C. Check in at registration Upon arrival you will be taken to the pre-operative area to get ready for surgery, your family will stay in the waiting room and visit with you once you are ready for surgery. Due to special limitations please limit visitation to 1-2 members of your family at a time. When it is time for surgery your family will return to the waiting room. Nothing to eat, drink, smoke, suck or chew after midnight (no water, gum, mints, cigarettes, cigars, pipes, snuff, chewing tobacco, etc.) or your surgery may be canceled. Take a shower or bath on the morning of your surgery/procedure (Hibiclens if directed) Do not apply any lotions. [place] your teeth, but do not swallow any water IN CASE OF ILLNESS - If you have a cold or flu symptoms (high fever, runny nose, sore throat, cough, etc.) rash, nausea, vomiting, loose stools, and/or recent contact with someone who has a contagious disease (chick pox, measles, etc.) please call your doctor before coming to the surgery center Take a small sip of water with LISINOPRIL If applicable bring your: Inhaler (s) Hearing aid(s) Eyeglasses and Case (If you wear contacts they have to be removed before surgery, bring case and solution) CPAP DO NOT take anticoagulants (blood thinners, aspirin or aspirin-containing products) as instructed by your physician. DO NOT take any diabetic pills or insulin morning of your surgery. Leave all jewelry at home and wear loose, comfortable clothing that is easy to put on and take off. If you will be returning home the same day as your surgery, you will need to have a responsible adult (18 years of age or older) present to drive you home. You will need someone stay with you at home for the first 24 hours following your surgery. This is due to the anesthesia and the medication given to you during surgery and recovery. documented in this encounter [facility] 12-18-2024 Hospital Discharge instructions Christina Moreau, - 12/18/2024 11:34 AM EST Images from the original note were not included. [facility] POSTOPERATIVE PATIENT INSTRUCTIONS MAJOR & MINOR SURGICAL PROCEDURES Congratulations! You have taken the brave step of undergoing surgery in order to try to improve your health. Now it is time to focus on healing outside of the hospital / surgery center setting. To make your dismissal as successful as possible, it is recommended that you thoroughly review these postoperative instructions. These instructions pertain to, but are not limited to the following procedures: MAJOR Hysterectomy - Vaginal / Laparoscopic / Robotic With or Without tube-ovarian Removal (Salpingo-oophorectomy) Sacrocolpopexy / Sacroperineopexy / Sacrocervicopexy/ Hysteropexy (lifting apex to sacrum) Major Vaginal Prolapse repairs Cystocele repair (Anterior Colporrhaphy) Rectocele repair (Posterior Colporrhaphy) Enterocele repair Vaginal vault repair Closing or removal of the vagina (Colpocleisis / Colpectomy) Major urinary incontinence surgery (Espinosa Urethropexy, MMK) Major fibroid removal (Myomectomy) Major tubal surgery (re-anastomosis, ectopic , pelvic inflammatory disease) Major surgery for adhesions or endometriosis involving bowel Major vaginal mesh removal Fistula repair of the bladder or colorectum to the vagina Creation of a new vagina (Neovaginoplasty) or repair of a Mullerian Anomaly Other MINOR Hysteroscopy with Dilatation / Curettage, Endometrial Ablation / Hysterosalpingogram (HSG) Laparoscopy With or Without minor tubal or ovarian surgery Minor Vaginal Prolapse repairs Cystocele repair (Anterior Colporrhaphy) Rectocele repair (Posterior Colporrhaphy) Urethrocele repair Minor urinary incontinence surgery (Slings, Transurethral Bulking) Minor vaginal surgery (Mesh removal, Laser ablation, Biopsies, Labial revisions, Injections) Minor surgery of the bladder (DMSO, Hydrodistention, Botox, etc.) Neuromodulation Other 1 2 POST OPERATIVE BASIC INSTRUCTIONS The office will call on the Tuesday, or within 1 week, after your surgery to make sure you are doing well and to answer questions. Your 1st post-op visit will occur within 1-2 weeks after your surgery. Your final post-op visit will occur @ 4-6 weeks depending on the surgery & your desire to return to work. Your surgery and recovery may require more visits in between the 1st and final visits. DO'S, DONT'S, & WHEN TO CALL As reviewed with you on the morning of your discharge, for the 1st week out of surgery below is a QUICK list of DO's, DONT's, and WHEN TO CALL: 5 THINGS YOU MAY DO 5 THINGS YOU MAY NOT DO FOR 4-8 WEEKS -Shower with Ivory Soap and water -Tub bathe, hot tub, or swim -Gradually increase walking - Heavy lifting > 15lbs (2 gallons worth) -Go up and down stairs slowly - Insert anything into the vagina (sex, douching, tampons) -Light housecleaning (dusting, dishwashing) - Drive a car / motorcycle (*See Special Considerations) -Short local travel (restaurant, synagogue) - Long distance travel > 1.5 hours (*See Special Considerations) 5 SYMPTOMS TO CALL FOR: -Sustained fever >100.4 despite Tylenol or a cold shower, especially associated with redness of incision/s -Pain out of the ordinary (>7) despite pain meds / anti-inflammatories -Heavy vaginal bleeding > 1 pad / hour with large red clots -Inability to eliminate urine (especially if catheterized) or flatus / stool (with sustained distention & nausea) -Calf pain or extreme shortness of breath QUESTIONS, CONCERNS, EMERGENCIES Please call the office with any questions or concerns. [phone]. If during office hours, your issue may require an appointment. If after hours, the answering service will connect you with the physician Bottling Supervisor. If you are concerned that your issue may be emergent, PLEASE CALL FIRST. Many issues may be resolved over the phone and avoid an unnecessary and expensive ER visit. If you truly have an emergency related to the surgery and call first: *You will be directed to the hospital ER in which you had your surgery. [facility] primarily or [facility] rarely. [facility] & [facility] patients may be asked to report to [facility] if Dr. Vargas's on-call partner is assuming responsibility. ER visits are ALWAYS covered by insurance (i.e. [facility] can go to a [facility] ER.) Calling 1st expedites your care & avoids an unnecessary and costly ambulance transfer to the Hospital. Dial 911 or go to your closest ER if your emergency is related to a potential heart attack or stroke. 3 DISCHARGE MEDICINES Eugene 325/5mg tablets or alternative narcotic. Take 1-2 tablets by mouth every 4-6 hours as needed for pain. Per [facility] Board of Pharmacy laws, only 1 week of narcotics may be prescribed at a time. Do not take extra Tylenol (Acetaminophen) orally as Eugene already contains the medicine. May take 500mg orally every 4-6 hours if off of Eugene. * Ibuprofen 400-800mg is safe to take. Take 1 tablet by mouth every 8 hours for inflammation. Senokot - S. Take two tablets by mouth every night to prevent constipation. Stop if loose stools occur. If an antibiotic is required: Keflex 250-500mg take 1 tablet by mouth 3x / day as prescribed OR Cipro 250-500mg take 1 tablet by mouth 2x / day as prescribed Other medicines may be prescribed based on your post-op course or situation. Zofran 4mg for nausea, Flomax 0.4mg for voiding *You may resume taking any medications you were taking before your surgery, unless told otherwise. DUE TO BLEEDING RISK, DO NOT RESUME HOME ANTICOAGULANTS UNTIL DIRECTED SPECIAL CONSIDERATIONS After surgery, give yourself a chance to adjust and recover. Some patients feel fine within a month. Many need a little extra time. Do not be concerned if you feel fatigued for the first month, your body is recovering. It may take several weeks for you to get your energy back. Even if energy has returned, please do not be tempted to re-engage in strenuous activity. Although mild weight gain is not uncommon, most of it is IV fluid weight that your body will remove with time. You have the rest of your life to exercise, so some patience and rest is zazueta in the short term in order to heal successfully in the suit attendant. Once you have fully recovered, you may focus on enjoying your life. Keep in mind, you will continue to heal for 6-12 months after surgery, so use common sense to protect your surgery (avoid repetitive heavy lifting, constipation, chronic pelvic strain.) In particular, if you had a hysterectomy, you may have both physical and emotional effects that may be brief or shelter. After hysterectomy, periods will stop, and a woman can no longer achieve . Despite popular myth, post-hysterectomy weight gain is not due to the hysterectomy but is usually a result of other factors. A depressive emotional reaction to loss of the uterus is not uncommon or abnormal. Please discuss any concerns with your health care provider if persistent. Sexual response may change after hysterectomy. There are no definitive studies showing decreased orgasmic potential post-hysterectomy. Some women have a heightened response due to correcting painful pathology. Ovarian removal may decrease estrogenization, leading to vaginal dryness and menopausal hot flashes. Hormonal therapy may need to be discussed. SOME SURGERIES HAVE SPECIAL CONSIDERATIONS MAJOR For all major surgeries listed above, you may drive after your 1week post-op visit if cleared, have discontinued narcotic pain meds, and are able to depress the brake quickly without pain. Long distance travel may be resumed in 4 weeks if stable. With major robotic hysterectomy, you should refrain from intercourse for 8 weeks, other hysterectomies 6 weeks. MINOR Minor surgeries may drive the next day any distance if off narcotic pain meds and are able to brake safely. For minor vaginal surgeries for prolapse and / or urinary incontinence procedures, maintain pelvic rest for 4 weeks. Exercise and work may be resumed within 2-4 weeks depending on healing. For minor surgeries of the vagina, uterus, and bladder, hysteroscopy, D&C, and laparoscopy, maintain pelvic rest for 1-2 weeks depending on healing. Exercise and work may be resumed within the week. 4 CONSENT ITEMS REVISITED IN THE POST OPERATIVE PERIOD Physical and sexual activity will be restricted to varying degrees for an indeterminate period of time, but most often 2-8 weeks depending on the breadth of surgery. It is impossible to list every undesirable effect. The condition for which surgery is done is not always cured or significantly improved, and in rare cases may even worsen. There is no 100% guarantee that the planned surgery, despite everything being done correctly and to the medico-surgical standard, with resolve a condition 100% including but not limited to pain, prolapse, mesh erosion, urinary infections, bladder function, or defecatory dysfunction. Specifically, up to 20% of patients with abdominopelvic pain, 27% of those with UTI's, 16-26% with urinary incontinence or voiding dysfunction, and 40% with defecatory dysfunction may not see substantial long-lasting improvement from a surgical intervention. Dangerous blood clots in the legs or lungs may occur post-operatively. Patients on chronic blood thinners, particularly those without antidote, may be at significant risk of bleeding, hemorrhage, hematoma formation, need for transfusion, and over the regular population. Life-threatening bleeding complications may even occur up to 4 weeks out of surgery even if anticoagulation is managed appropriately. If the patient has been taken off anticoagulation because of bleeding, this could expose her to life-threatening blood clots in the legs or lungs, PA, or stroke. Elderly patients over the age of 70 may experience up to a 2-4% mortality rate in the postsurgical period related to comorbidities and declining health. A living will and code status is recommended to be reviewed. For major outpatient procedures requiring less than a 24 hour stay, you will be dismissed from the hospital or surgery setting when stable and meets criteria for discharge. Less than 5% of patients may rebound to an emergency setting for some of the risks mentioned above even though they have met criteria for dismissal earlier. Outpatient surgical recovery usually occurs between 2 and 4 weeks. For major inpatient procedures requiring an average 0-2-day hospital stay, the patient may not be fully recovered from major surgery for up to 6-8 weeks. Please understand with Medicare and insurance regulations, only 1 night will be approved for most reconstructive or robotic procedures. In regard to reconstructive pelvic and incontinence surgery: Approximately 85% of patients experience a reasonable improvement >5 years in pelvic support and urinary/fecal incontinence, as well as urinary infections, after the procedure. There is a long-term risk of recurrent prolapse in up to 30% of women who have undergone reconstructive surgery if healthy lifestyle behaviors are not maintained. This includes but is not limited to good nutrition, smoking cessation, weight loss in the obese, reduction in heavy lifting, exercise, fall prevention, and bowel regularity. Reconstructive pelvic and/or urinary/fecal incontinence surgeries may only improve your condition/s mildly and may not completely resolve problems including but not limited to urinary tract infections and/or defecatory dysfunction. 17% of patients may still get a urinary tract infection and 40-60% of patients may still experience constipation postoperatively. It may be hard to urinate for a few days or weeks. Sometimes, up to 40% of women cannot urinate efficiently after surgery due to swelling, anesthesia, or pain. Prolonged urinary retention may rarely occur after an incontinence or pelvic prolapse surgery and is more likely if retention predates surgery or includes factors that are not limited to neuropathy, diabetes mellitus, or prior pelvic surgery. The patient may need a catheter to drain the bladder for 1-2 weeks on average. Patients in Dr. Vargas's practice most often prefer a transurethral Martinez. Other choices are a suprapubic catheter or intermittent self-catheterization. The patient has been given instructions on how to manage the type of catheter chosen, which will be reiterated postoperatively. There is a 5% chance of recurrent retention after martinez removal requiring catheter replacement in the office or by ER. Despite evidence indicating no need for antibiotics with a catheter, real world experience shows a 20-40% rate of UTI with a Martinez catheter which depending on personal risk factors and extent of surgery, may require a prophylactic antibiotic afterwards. Antibiotics have risks of resistance, diarrhea, and C. difficile infection. Suprapubic catheters carry a risk of urinoma, bowel injury, and bleeding and have a UTI risk of 15-20%. Intermittent self-catheterization carries an 11% risk of a UTI. In regard to labial or perineal reconstructive surgery: You should expect some bruising and mild swelling with related discomfort following these surgeries that lasts 1-2 weeks. Ice packs and sitz baths may be utilized after surgery to help minimize swelling and discomfort. Mild analgesics are also used. Final optimal results can usually be appreciated in several months. Most patients may return to work or school within a week after surgery; however, strenuous activity or tight clothing is discouraged, and patients must refrain from sexual intercourse for 4-6 weeks after surgery. You may receive a topical antibiotic, which reduces risk of infection. Mild bleeding is not uncommon and can occur postoperatively if strenuous activity or intercourse is begun too early. Problems with healing, such as incision separation, suture popping, scarring, and/or pain following the surgery are rare but can happen. 5 SPECIAL INSTRUCTIONS IF MRSA POSITIVE * Continue Bactroban to the nares 2x / day for 1 week post-operatively. Since many people are colonized in the community, it is not something we will routinely culture for post-operatively. TO PREVENT BLOOD CLOTS IN THE LEGS OR LUNGS / PNEUMONIA IN THE LUNGS Regular walking or calf stretches and wearing a supportive hose may help prevent clots in the legs or lungs. Take home your incentive spirometer if given one and utilize it as instructed to prevent pneumonia Smoking cessation before and after surgery is strongly encouraged. VAGINAL BLEEDING & DISCHARGE You will likely experience light bleeding with the potential for small dime size clots, lasting 2-3 weeks after your surgery. This should NOT be construed as heavy bleeding. You may notice an increase in vaginal discharge 4-6 weeks after your surgery, which may be watery, yellowish, or pinkish. It may have more of an acidic odor. This is common as the vagina flushes out edematous body fluid and dissolves the absorbable sutures. As the healing process progresses, you may experience mild itching within the vagina, as well as outside the vaginal opening. If this itching becomes severe, and/or is accompanied by a foul smell and swelling, please call the office. DRAINS & WOUND CARE If a drain or specific wound care appliance is present at the time of dismissal, please follow additional instructions that may be provided regarding maintenance of the device/s. Basic daily maintenance of a drain is as follows: You may wash around the drain site with warm, soapy water and pat dry with a towel. If indicated, use a topical antibiotic around the drain site 2x / day. Strip or milk the drain from the drain site to the bulb suction 3x / day. This clears any blockage from the drain. Simply pinch the drain at its insertion site into your body between your thumb and forefinger. Then squeeze and pull the drainage tubing as you move towards the drain bulb, allowing the tube to slide between your fingers with mild resistance, you should see a suction effect within the drain tube that moves fluid toward the bulb. Please call the office immediately if the drain falls out or cannot maintain suction. Please call if redness of the drain site increases and is associated with fever, pain, or purulent discharge. CONSTIPATION * Patients are often constipated after a prolonged period of bed rest, or with the use of oral narcotic pain medications. If you have not had a bowel movement for 3 days after you are dismissed from the hospital, or are uncomfortable and unable to pass stool, please try one or all of the following measures in a stepwise manner 1-5 as needed for results: Eat fruits, vegetables, prunes & whole-grain foods. Drink 8 glasses of fluid daily. Add PlumSmart juice. Metamucil, FiberCon, or other bulking medication - use as directed Milk of magnesia - 30 mL's by mouth every 12 hours Dulcolax suppository - 1 suppository per rectum every 4-6 hours Fleets enema - use as directed unless told nothing per rectum (colorectal fistula repair) BLADDER DRAINAGE There is a >70% chance you will void on your own post-operatively. In particular, reconstructive and incontinence surgeries (whether you had incontinence before surgery or not), sometimes have surgical effects of normal swelling and new positioning of the bladder may be associated with some mild to moderate postoperative urinary leakage. Often this leakage is urge related. As discussed, pre-operatively, up to 26% of patients with prolapse and negative urodynamic testing may develop de more incontinence afterwards. Please do not be frustrated if temporary incontinence occurs for it will most likely improve as you continue to heal. Leakage rarely persists in the long-term, there are many options for treatment, and Dr. Vargas and his office staff are there to help you every step of the way. 6 The following attachments cannot be sent through Care Everywhere.Cystoscopy: Post-op (Luxembourgish)documented in this encounter [facility] 12-14-2024 History of Present illness Narrative DAY OF SURGERY/PROCEDURE GUIDELINES As a patient at the [facility], you can expect quality medical and nursing care that is centered on your individual needs. It is our goal to make your surgical experience as comfortable and excellent as possible. ____ The following instructions are general guidelines, if any information on this sheet is different from what your doctor has instructed you to do, please follow your doctor's instructions. Please arrive on 12/19/2024 @ 0900 Enter through entrance C. Check in at registration Upon arrival you will be taken to the pre-operative area to get ready for surgery, your family will stay in the waiting room and visit with you once you are ready for surgery. Due to special limitations please limit visitation to 1-2 members of your family at a time. When it is time for surgery your family will return to the waiting room. Nothing to eat, drink, smoke, suck or chew after midnight (no water, gum, mints, cigarettes, cigars, pipes, snuff, chewing tobacco, etc.) or your surgery may be canceled. Take a shower or bath on the morning of your surgery/procedure (Hibiclens if directed) Do not apply any lotions. [place] your teeth, but do not swallow any water IN CASE OF ILLNESS - If you have a cold or flu symptoms (high fever, runny nose, sore throat, cough, etc.) rash, nausea, vomiting, loose stools, and/or recent contact with someone who has a contagious disease (chick pox, measles, etc.) please call your doctor before coming to the surgery center Take a small sip of water with If applicable bring your: Inhaler (s) Hearing aid(s) Eyeglasses and Case (If you wear contacts they have to be removed before surgery, bring case and solution) CPAP DO NOT take anticoagulants (blood thinners, aspirin or aspirin-containing products) as instructed by your physician. DO NOT take any diabetic pills or insulin morning of your surgery. Leave all jewelry at home and wear loose, comfortable clothing that is easy to put on and take off. If you will be returning home the same day as your surgery, you will need to have a responsible adult (18 years of age or older) present to drive you home. You will need someone stay with you at home for the first 24 hours following your surgery. This is due to the anesthesia and the medication given to you during surgery and recovery. documented in this encounter [facility] 09-12-2024 History of Present illness Narrative Lynne Gan is a 38 y.o.female. Patient's last menstrual [...] Procedure Laterality Date CERVICAL FUSION CERVICAL FUSION 2015 C5-C5 CERVICAL SPINE SURGERY ELBOW SURGERY INJECTION BLOCK EPIDURAL CAUDAL STEROID N/A 02/26/2022 Performed by Stuart Carrasco MD at [facility] INJECTION BLOCK EPIDURAL CAUDAL STEROID N/A 01/22/2022 Performed by Stuart Carrasco MD at [facility] INJECTION BLOCK NERVE MEDIAL BRANCH: bilat C /3 3/4 Bilateral 08/12/2023 Performed by Stuart Carrasco MD at [facility] INJECTION BLOCK SACROILIAC JOINT Left 10/02/2021 Performed by Stuart Carrasco MD at [facility] INJECTION SPINE TRANSFORAMINAL Left L 5,1 Nroot Left 08/21/2021 Performed by Stuart Carrasco MD at [facility] INJECTION SPINE TRANSFORAMINAL: left L 5,1 nroot Left 11/13/2021 Performed by Stuart Carrasco MD at [facility] KNEE ARTHROSCOPY 2011 fluid removed LAPAROSCOPIC CHOLECYSTECTOMY N/A 01/24/2020 Performed by Lobito Pruitt MD at [facility] FAMILY HX Family History Problem Relation [...] for this visit: Cystocele with prolapse - [facility] - Urogynecology - [place], [place]; Future Patient has tried pelvic floor therapy in the past with minimal improvement. 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 Information given for BCCP program so patient can get scheduled for annual / pap d/t no insurance. All questions answered. Educational material provided through [employer]. RTO for annual and / or sooner as needed. MATTY Haq APRN-CNP Lisa M Krotzer, APRN-CNP 09/12/24 1518 documented in this encounter [facility] 08-16-2023 Evaluation note Encounter Date Diagnosis Assessment [...] pain of left shoulder (ICD-10 - M25.512) [employer] Other 03-30-2023 Evaluation note* Encounter Date Diagnosis [...] in nature these are not radicular symptoms. [employer] Other 01-26-2023 Evaluation note* Encounter Date Diagnosis [...] also possible the tingling may never improve. [employer] Other 11-15-2022 Evaluation note* Encounter Date Diagnosis Assessment Notes Treatment Notes Treatment Clinical Notes Sep, Spondylolisthesis, cervical region (ICD-10 - M43.12) Lynne is doing very well, her radicular symptoms are completely gone. She does still complain of some weakness in her arm and her hand and wishes to do physical therapy, I sent a referral to [facility] in [place] for this. I independently reviewed the x-ray [...] fusion of cervical spine (ICD-10 - Z98.1) [employer] Other 08-23-2022 Evaluation note* Encounter Date Diagnosis Assessment Notes Treatment Notes Treatment Clinical Notes Jun, GERD (gastroesophageal reflux disease) (ICD-10 - K21.9) [employer] Other 08-02-2022 Evaluation note* Encounter Date Diagnosis Assessment Notes Treatment Notes Treatment Clinical Notes Jun, GERD (gastroesophageal reflux disease) (ICD-10 - K21.9) STOP SUCRALFATE START LANSOPRAZOLE 30 MG BID IF NOT IMPROVED WILL CONSIDER EGD/ GONZALEZ RTO 3 MONTHS Jun, Abdominal pain (ICD-10 - R10.9) [employer] Other Evaluation noteNo InformationNort [employer] Other evaluation note* Diagnosis Onset Date Resolution Status Cervical disc disorder at C6-C7 level with radiculopat hy acute Left arm weakness acute Neck fracture acute [facility] Work Phone: Evalumzvqo noteNo assessment information available [facility] Work Phone: evaluation note* Diagnosis Chronic bladder pain Incomplete bladder emptying S/p Cysto with filling [facility] 12/19/24 Other postprocedural status documented in this encounter [facility]* Diagnosis 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)(female) Hyperactivity of bladder Hypertonicity of bladder Female cystocele Cystocele, midline Rectocele Uterine prolapse Uterine prolapse without mention of vaginal wall prolapse Pre-op testing Preoperative examination, unspecified 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)(female) Hyperactivity of bladder Hypertonicity of bladder Female cystocele Cystocele, midline Rectocele Uterine prolapse Uterine prolapse without mention of vaginal wall prolapse documented in this encounter [facility]* Diagnosis Cyst[facility] with [facility]apse- [facility] Post-op pain- Primary Other acute postoperative pain 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)(female) Hyperactivity of bladder Hypertonicity of bladder Female cystocele Cystocele, midline Rectocele Uterine prolapse Uterine prolapse without mention of vaginal wall prolapse S/p TVH, BS, A/P repairs, Cysto, [employer] 01/14/25 Other postprocedural status documented in this encounter [facility]* Diagnosis UTI symptoms documented in this encounter [facility] Narrative - Reported* Type Description Date Medical History GERD Surgical History neck surgery Surgical History Procedure:20 hr labor ;Dise ase: 2008 Surgical History knee surgery 2011 Surgical History Procedure:12 hr labor ;Dise ase: 2006 Surgical History Procedure: 2 hr labor ;Dise ase: 2016 Surgical History Laparoscopic Cholecystectomy-Wi ecek 12/2019 Hospitalization History cb [employer] Other [facility] general Narrative - Reported* Type Description Date Medical History GERD Surgical History neck surgery Surgical History Procedure:20 hr labor ;Dise ase: 2009 Surgical History knee surgery 2012 Surgical History Procedure:12 hr labor ;Dise ase: 2007 Surgical History Procedure: 2 hr labor ;Dise ase: 2016 Surgical History Laparoscopic Cholecystectomy-Wi ecek 12/2019 Hospitalization History cb Hospitalization History see above surg. hx. [place] [employer] Other Instructions* Attachments The following attachments cannot be sent through Care Everywhere. * Cystocele and Rectocele (Luxembourgish) [facility] SystemReason for visit NarrativePT HERE AT REQUEST OF DR CRUZ FOR EVALUATION AND TREATMENT OF GERD / ABDOMINAL PAIN, REFERRAL NOTERECEIVEDHuntley [employer] Other Reason for visit NarrativePain Medicine Referral UpdateHuntley [employer] Other reason for visit Narrative* Auth/Cert Specialty Diagnoses / Procedures Referred By Contac t Referred To Contact Diagnoses 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)(female) Hyperactivity of bladder Female cystocele Rectocele Uterine prolapse Procedures MA NDSC NJX IMPLT MATRL URT&/BLDR NCK MA VAGINAL HYSTERECTOMY UTERUS 250 GM/< MA LAPAROSCOPY W/RMVL ADNEXAL STRUCTURES MA CMBND ANTERPOST COLPORRAPHY W/CYSTO CYSTOSCOPY INJECTION HYSTERECTOMY VAGINAL BILATERAL SALPINGECTOMY VAGINAL REPAIR [place] [address] [place] [address] [facility] [address] [place] [address] Referral ID Status Reason Start Date Expiration Date Visits Re quested Visits Authorized [id number] 1 1 [facility] [employer] Summary Purpose Family History No Family History [...] Comments 01/24/2020 10:06 AM 01/24/2020 12:52 PM Date Activated Date Inactivated Comments 01/17/2025 9:54 AM Hospital Course Note [facility] Clinical Discharge Summary PERSON INFORMATION Name LYNNE ABDI Age 34 Years 1985 Sex FEMALE Language Luxembourgish PCP Provider, None Marital Status Med Service Observation Acct# Arrival 10/28/2019 23:15:38 Visit Reason Nausea; Vomiting; ABD PAIN Acuity LOS 000 13:08 Address: [address] [place] [id number] Comment: PROVIDER INFORMATION VITALS INFORMATION Vital Sign [...] Chief Complaint m50.20 m43.12 Reason for Referral Specialty Diagnoses / Procedures Referred By Melissa t Referred To Contact Cardiology Diagnoses Pre-op testing Procedures EKG 12 Lead Serg Vargas, [address] [place] [address] Referral ID Status Reason Start Date Expiration Date Visits Re quested Visits Authorized [id number] Open 12/31/2024 12/31/2025 1 1 Reason evaluate and treat f or neck and shoulder pain Diagnosis 1 Herniated cervical d isc (M50.20) Referral Organization [facility] Referring Provider First Name Keron Referring Provider Last Name Yamileth Referring Provider Specialty Neurologica l Surgery Referred Organization [facility] Referred Provider Stuart Carrasco Jr. Referred Address [address] [place], [place],[address] Referred Provider Specialty Pain Medicin e Referral Priority Routine Reason evaluate and treat f or neck and arm pain Diagnosis 1 Left cervical radicu lopathy (M54.12) Referral Organization [facility] Referring Provider First Name Keron Referring Provider Last Name Yamileth Referring Provider Specialty Neurologica l Surgery [facility] Referred Address [address], [place], [place],[address] Referred Provider 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 Referral Priority Routine Reason Evaluate and Treat O utpatient PT for Arm Strengthening Diagnosis 1 Spondylolisthesis, c ervical region (M43.12) Referral Organization [facility] Referring Provider First Name Keron Referring Provider Last Name Yamileth Referring Provider Specialty Neurologica l Surgery Referred Organization [facility] Referred Address [address] [place],[address] Referred Provider 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 Referral Priority Routine Additional Source Comments INFORMATION SOURCE (unrecogn ized section and content) DATE CREATED AUTHOR 05/23/2018 [facility] DATE CREATED AUTHOR AUTHOR'S ORGANIZ ATION 11/07/2019 [facility] DATE CREATED AUTHOR AUTHOR'S ORGANIZ ATION 03/03/2023 [facility] DATE CREATED AUTHOR AUTHOR'S ORGANIZ ATION 12/22/2023 [facility] DATE CREATED AUTHOR AUTHOR'S ORGANIZ ATION 09/15/2024 [facility] DATE CREATED AUTHOR AUTHOR'S ORGANIZ ATION 01/31/2025 [facility] REASON FOR VISIT (unrecogniz ed section and content) Specialty Diagnoses / Procedures Referred By Melissa rivas Referred To Contact Diagnoses Chronic bladder pain Incomplete bladder emptying Chronic bladder pain [R39.82] Incomplete bladder emptying [R33.9] Procedures MA CYSTOURETHROSCOPY MA BLADDER PRESSURE MEASUREMENT DURING FILLING [facility] [place] [address] [place] [address] [facility] [address] [place] [address] Referral ID Status Reason Start Date Expiration Date Visits Re quested Visits Authorized [id number] 1 1 Reason Comments Vaginal Pain Pt c/o vaginal bulge with pain Care Teams (unrecognized sec tion and content) Team Status: Inactive Member Role Status Dates PHYSICIAN NO FAMILY Primary Care Provider Active Gt Haro DO Admit Provider Active Eladio Mayo MD Attending Provider Active Brian Scott CSTNKECHI Other Provider Active Keron Carson MD Other [...] Dates Keron Carson MD Attending Provider Active eNly Cruz PA-C Primary Care Provider Activ e 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 Specialty Start Date End Date Nely Cruz PA-C [address] [place] [address] PCP - General Family Medicine 09/27/24 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 Specialty Start Date End Date Nely Cruz PA-C [address] [place] [address] PCP - General Family Medicine 09/27/24 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 Specialty Start Date End Date Nely Cruz PA-C [address] [place], [place] [id number] PCP - General Physician Supervisor [employer] 01/21/23 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 Specialty Start Date End Date Nely Cruz PA-C [address] [place], [place] [id number] PCP - General Family Medicine 09/27/24 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 Start Date End Date Nely Cruz PA-C [address] [place] [address] PCP - General Family Medicine 09/27/24 Goals (unrecognized section and content) Goals may be documented in a n alternate section Ordered Prescriptions (unrec ognized section and content) Prescription Sig Dispensed Refills Start Date End Da te ondansetron (ZOFRAN) 4 MG tablet Take 1 tablet by mouth daily as needed for Nausea or Vomiting 30 tablet 12/19/2024 sennosides-docusate sodium (SENOKOT-S) 8.6-50 MG tablet Take 1 tablet by mouth daily 30 tablet 1 12/19/2024 cephALEXin (KEFLEX) 250 MG capsule Take 1 capsule by mouth 2 times daily 2 capsule 12/19/2024 Prescription Sig Dispensed Refills Start Date End Da te cephALEXin (KEFLEX) 500 MG capsule Take 1 capsule by mouth 3 times daily for 7 days Take for only 3 days if discharged home without martinez catheter 21 capsule 01/14/2025 01/21/2025 oxyCODONE-acetaminoph en (PERCOCET) 5-325 MG per tabletIndications:Pos t-op pain Take 1 tablet by mouth every 6 hours as needed for Pain for up to 10 doses. Take lowest dose possible to manage pain Max Daily Amount: 4 tablets 10 tablet 01/14/2025 01/21/2025 sennosides-docusate sodium (SENOKOT-S) 8.6-50 MG tablet Take 2 tablets by mouth nightly as needed for Constipation 60 tablet 1 01/14/2025 ondansetron (ZOFRAN) 4 MG tablet Take 1 tablet by mouth every 8 hours as needed for Nausea or Vomiting 30 tablet 01/14/2025 ibuprofen (ADVIL;MOTRIN) 600 MG tablet Take 1 tablet by mouth every 6 hours 120 tablet 1 01/14/2025 Scheduled Active and Recently Administ ered Medications (unrecognized section and content) Medication Order 12/17/2024 12/18/2024 12/19/2024 ceFAZolin (ANCEF) 2000 mg in sterile water 20 mL IV syringe (COMPLETED) 2,000 mg, IntraVENous, ONCE, On Tue12/19/24 at 0915, For 1 dose, Administer over 5 mins. 1029 (Given - Provid er: Azam Berrios, APPLICATIONS SUPPORT ENGINEER - CONFERENCE AND EVENT ORGANISER) meperidine (DEMEROL) injection 12.5 mg 12.5 mg, IntraVENous, ONCE, 1 dose, On Tue12/19/24 at 1115, May give every 5 minutes to max of 50mg., PACU only 111 (Due) sodium chloride flush 0.9 % injection 5-40 mL 5-40 mL, IntraVENous, EVERY 12 HOURS SCHEDULED (2 times per day), First dose on Tue12/19/24 at 0915, Until Discontinued, For Line Patency: Peripheral IV = 5 mL; Midline or Central Line = 10 mL/lumen. If following IV push medication, administer flush at same rate as the IV push. Flush volume is determined by type of infusion therapy being given. For non-viscous solutions use: Peripheral IV = 5 mL Midline or Central Line = 10 mL/lumen For viscous solutions (i.e. blood components, parenteral nutrition, contrast media, or after obtaining blood sample) use: Peripheral IV = 10 mL Midline or Central Line = 20 mL/lumen, Pre-op (day of surgery) 09 (Due)2099 (Due) sodium chloride flush 0.9 % injection 5-40 mL 5-40 mL, IntraVENous, EVERY 12 HOURS SCHEDULED (2 times per day), First dose on Tue12/19/24 at 1115, Until Discontinued, For Line Patency: Peripheral IV = 5 mL; Midline or Central Line = 10 mL/lumen. If following IV push medication, administer flush at same rate as the IV push. Flush volume is determined by type of infusion therapy being given. For non-viscous solutions use: Peripheral IV = 5 mL Midline or Central Line = 10 mL/lumen For viscous solutions (i.e. blood components, parenteral nutrition, contrast media, or after obtaining blood sample) use: Peripheral IV = 10 mL Midline or Central Line = 20 mL/lumen, PACU only 111 (Due)2100 (Due) Continuous Medication Order 12/17/2024 12/18/2024 12/19/2024 lactated ringers infusion IntraVENous, at 125 mL/hr, CONTINUOUS, Starting on Tue12/19/24 at 0915, Pre-op (day of surgery) 0948 (New Bag - Prov ider: Eva Connor RN)1025 (NoRateChange - Provider: MYA Fair CRNA)1048 (Paused - Provider: MYA Fair CRNA - Comment: Switch to gravity)1049 (Restarted - Provider: MYA Fair CRNA) PRN Medication Order 12/17/2024 12/18/2024 12/19/2024 0.9 % sodium chloride infusion IntraVENous, at 5-250 mL/hr, PRN, if patient receiving piggyback infusions and maintenance fluids are not ordered OR KVO fluids to protect IV site / prevent frequent line interruptions/ long duration, Starting on Tue12/19/24 at 0845, For piggyback infusion, administer at same rate as piggyback for a total of 25 mL. Enter 25 mL into dose field and piggyback rate into rate field of order. If piggyback is infusing at a rate less than 100 mL/hr, enter 25 mL into dose field and 100 mL/hr into rate field of order. For KVO fluids, enter rate of 20 mL/hr or less into rate field of order., Pre-op (day of surgery) 0.9 % sodium chloride infusion IntraVENous, at 100 mL/hr, PRN, If patient receiving piggyback infusions without ordered maintenance IV fluids or with frequent/long duration piggyback infusions, Starting on Tue12/19/24 at 1056, Administer at the same rate as the piggyback being infused., PACU only diphenhydrAMINE (BENADRYL) injection 12.5 mg 12.5 mg, IntraVENous, ONCE PRN, 1 dose, Starting on Tue12/19/24 at 1056, Until Sophie 12/20/24 at 1056, Itching, PACU only hydrALAZINE (APRESOLINE) injection 10 mg(Linked Group 1) 10 mg, IntraVENous, EVERY 15 MIN PRN, 2 doses, Starting on Tue12/19/24 at 1056, Until Discontinued, for SBP greater than 180 mmHg for 2 consecutive measurements taken from different sites, If heart rate is greater than 60 bpm, hold hydralazine and use labetalol if ordered, otherwise contact provider. Inform provider if SBP is still greater than 180 mmHg 10 minutes after second antihypertensive dose is administered., PACU only HYDROmorphone (DILAUDID) injection 0.5 mg 0.5 mg, IntraVENous, EVERY 5 MIN PRN, 4 doses, Starting on Tue12/19/24 at 1056, Until Discontinued, Pain Severe (7-10), Phase I - Initial therapy for severe pain., PACU only labetalol (NORMODYNE;TRANDATE) injection 10 mg(Linked Group 1) 10 mg, IntraVENous, EVERY 15 MIN PRN, 2 doses, Starting on Tue12/19/24 at 1056, Until Discontinued, High Blood Pressure, for SBP greater than 180 mmHg for 2 consecutive measurements taken from different sites., If heart rate is 60 bpm or less hold labetalol and use hydralazine if ordered, otherwise contact provider. Inform provider if SBP is still greater than 180 mmHg, 10 minutes after second antihypertensive dose is administered., PACU only lidocaine PF 1 % injection 1 mL 1 mL, IntraDERmal, ONCE PRN, 1 dose, Starting on Tue12/19/24 at 0845, Until Sophie 12/20/24 at 0845, IV start, Pre-op (day of surgery) metoclopramide (REGLAN) injection 10 mg 10 mg, IntraVENous, ONCE PRN, 1 dose, Starting on Tue12/19/24 at 1056, Until Sophie 12/20/24 at 1056, Nausea, Secondary antiemetic therapy., PACU only midazolam PF (VERSED) injection 2 mg 2 mg, IntraVENous, ONCE PRN, 1 dose, Starting on Tue12/19/24 at 1056, Until Sophie 12/20/24 at 1056, Anxiety, PACU only morphine (PF) injection 1 mg 1 mg, IntraVENous, EVERY 5 MIN PRN, 4 doses, Starting on Tue12/19/24 at 1056, Until Discontinued, Pain Moderate (4-6), Phase I - Initial therapy for moderate pain., PACU only naloxone 0.4 mg in 10 mL sodium chloride syringe IntraVENous, PRN, Opioid Reversal, Starting on Tue12/19/24 at 1056, PRN if respiratory rate is less than 6/min and patient is difficult to arouse then notify physician STAT. Mix 9 mL of sodium chloride 0.9% with 0.4 mg (1 mL) of naloxone (NARCAN) in 10 mL syringe. (Note: dilution is 0.04 mg/mL) Give 0.08 mg (2 mL of special dilution), slow IV push, repeat up to 0.4 mg (10 mL) or until patient is responsive to physical stimulation and respiratory rate is equal to or greater than 6 breaths/min. Continue to observe, if no response within 3 minutes of administration of 0.4 mg (10 mL) total, repeat dose (0.4 mg as administered previously). Concentration 0.04 mg/mL, PACU only ondansetron (ZOFRAN) injection 4 mg 4 mg, IntraVENous, ONCE PRN, 1 dose, Starting on Tue12/19/24 at 1056, Until Sophie 12/20/24 at 1056, Nausea, Initial antiemetic therapy., PACU only oxyCODONE (ROXICODONE) immediate release tablet 10 mg(Linked Group 2) 10 mg, Oral, PRN, 1 dose, Starting on Tue12/19/24 at 1056, Until Tue12/19/24 at 2359, Pain Severe (7-10), PHASE II, PACU only oxyCODONE (ROXICODONE) immediate release tablet 5 mg(Linked Group 2) 5 mg, Oral, PRN, 1 dose, Starting on Tue12/19/24 at 1056, Until Tue12/19/24 at 2359, Pain Moderate (4-6), PHASE II, PACU only sodium chloride flush 0.9 % injection 5-40 mL 5-40 mL, IntraVENous, PRN, Starting on Tue12/19/24 at 0845, Until Discontinued, Line Care, After every IV line use, For Line Patency: Peripheral IV = 5 mL; Midline or Central Line = 10 mL/lumen. If following IV push medication, administer flush at same rate as the IV push. Flush volume is determined by type of infusion therapy being given. For non-viscous solutions use: Peripheral IV = 5 mL Midline or Central Line = 10 mL/lumen For viscous solutions (i.e. blood components, parenteral nutrition, contrast media, or after obtaining blood sample) use: Peripheral IV = 10 mL Midline or Central Line = 20 mL/lumen, Pre-op (day of surgery) 0948 (Given - Provid er: Eva Connor RN) sodium chloride flush 0.9 % injection 5-40 mL 5-40 mL, IntraVENous, PRN, Starting on Tue12/19/24 at 1056, Until Discontinued, Line Care, After every IV line use, For Line Patency: Peripheral IV = 5 mL; Midline or Central Line = 10 mL/lumen. If following IV push medication, administer flush at same rate as the IV push. Flush volume is determined by type of infusion therapy being given. For non-viscous solutions use: Peripheral IV = 5 mL Midline or Central Line = 10 mL/lumen For viscous solutions (i.e. blood components, parenteral nutrition, contrast media, or after obtaining blood sample) use: Peripheral IV = 10 mL Midline or Central Line = 20 mL/lumen, PACU only Linked Groups Order Group 1: labetalol (NORMODYNE;TRANDATE) injection 10 mgJump to med 10 mg, IntraVENous, EVERY 15 MIN PRN, 2 doses, Starting on Tue12/19/24 at 1056, Until Discontinued, High Blood Pressure, for SBP greater than 180 mmHg for 2 consecutive measurements taken from different sites., If heart rate is 60 bpm or less hold labetalol and use hydralazine if ordered, otherwise contact provider. Inform provider if SBP is still greater than 180 mmHg, 10 minutes after second antihypertensive dose is administered., PACU only Or hydrALAZINE (APRESOLINE) injection 10 mgJump to med 10 mg, IntraVENous, EVERY 15 MIN PRN, 2 doses, Starting on Tue12/19/24 at 1056, Until Discontinued, for SBP greater than 180 mmHg for 2 consecutive measurements taken from different sites, If heart rate is greater than 60 bpm, hold hydralazine and use labetalol if ordered, otherwise contact provider. Inform provider if SBP is still greater than 180 mmHg 10 minutes after second antihypertensive dose is administered., PACU only Group 2: oxyCODONE (ROXICODONE) immediate release tablet 5 mgJump to med 5 mg, Oral, PRN, 1 dose, Starting on Tue12/19/24 at 1056, Until Tue12/19/24 at 2359, Pain Moderate (4-6), PHASE II, PACU only Or oxyCODONE (ROXICODONE) immediate release tablet 10 mgJump to med 10 mg, Oral, PRN, 1 dose, Starting on Tue12/19/24 at 1056, Until 12/19/24 at 2359, Pain Severe (7-10), PHASE II, PACU only Scheduled Medication Order 01/12/2025 01/13/2025 01/14/2025 ceFAZolin (ANCEF) 2000 mg in sterile water 20 mL IV syringe (COMPLETED) 2,000 mg, IntraVENous, ONCE, On Tue01/14/25 at 1030, For 1 dose, Administer over 5 mins. 1258 (Given - Provid er: Dara Colvin, APPLICATIONS SUPPORT ENGINEER - CONFERENCE AND EVENT ORGANISER) celecoxib (CELEBREX) capsule 200 mg (COMPLETED) 200 mg, Oral, ONCE, 1 dose, On Tue01/14/25 at 1030 1108 (Given - Provid er: Savanna Mendez RN) gabapentin (NEURONTIN) capsule 300 mg (COMPLETED) 300 mg, Oral, ONCE, 1 dose, On Tue01/14/25 at 1030 1107 (Given - Provid er: Savanna Mendez RN) phenazopyridine (PYRIDIUM) tablet 100 mg (COMPLETED) 100 mg, Oral, ONCE, 1 dose, On Tue01/14/25 at 1030, Take with food. May cause discoloration of urine. 1108 (Given - Provid er: Savanna Mendez RN) scopolamine (TRANSDERM-SCOP) transdermal patch 1 patch 1 patch, TransDERmal, Administer over 72 Hours, ONCE, On Tue01/14/25 at 1030, For 1 dose, delivers 1 mg over 3 days. Apply patch to hairless area behind the ear. 1108 (Patch Applied - Provider: Savanna Mendez RN) sodium chloride flush 0.9 % injection 5-40 mL 5-40 mL, IntraVENous, EVERY 12 HOURS SCHEDULED (2 times per day), First dose on Tue01/14/25 at 1030, Until Discontinued, For Line Patency: Peripheral IV = 5 mL; Midline or Central Line = 10 mL/lumen. If following IV push medication, administer flush at same rate as the IV push. Flush volume is determined by type of infusion therapy being given. For non-viscous solutions use: Peripheral IV = 5 mL Midline or Central Line = 10 mL/lumen For viscous solutions (i.e. blood components, parenteral nutrition, contrast media, or after obtaining blood sample) use: Peripheral IV = 10 mL Midline or Central Line = 20 mL/lumen, Pre-op (day of surgery) 1030 (Due)2100 (Due) sodium chloride flush 0.9 % injection 5-40 mL 5-40 mL, IntraVENous, EVERY 12 HOURS SCHEDULED (2 times per day), First dose on Tue01/14/25 at 2100, Until Discontinued, For Line Patency: Peripheral IV = 5 mL; Midline or Central Line = 10 mL/lumen. If following IV push medication, administer flush at same rate as the IV push. Flush volume is determined by type of infusion therapy being given. For non-viscous solutions use: Peripheral IV = 5 mL Midline or Central Line = 10 mL/lumen For viscous solutions (i.e. blood components, parenteral nutrition, contrast media, or after obtaining blood sample) use: Peripheral IV = 10 mL Midline or Central Line = 20 mL/lumen, PACU only 2100 (Due) Continuous Medication Order 01/12/2025 01/13/2025 01/14/2025 0.9 % sodium chloride infusion IntraVENous, at 125 mL/hr, CONTINUOUS, Starting on Tue01/14/25 at 1030, Pre-op (day of surgery) 1030 (Due) lactated ringers infusion IntraVENous, at 125 mL/hr, CONTINUOUS, Starting on Tue01/14/25 at 1030, Pre-op (day of surgery) 1101 (New Bag - Prov ider: Savanna Mendez RN)1243 (NoRateChange - Provider: MYA Miles CRNA)1352 (Paused - Provider: MYA Miles CRNA - Comment: Switch to gravity)1353 (Restarted - Provider: MYA Miles CRNA)1431 (Anesthesia Volume Adjustment - Provider: MYA Miles CRNA) PRN Medication Order 01/12/2025 01/13/2025 01/14/2025 0.9 % sodium chloride infusion IntraVENous, at 5-250 mL/hr, PRN, if patient receiving piggyback infusions and maintenance fluids are not ordered OR KVO fluids to protect IV site / prevent frequent line interruptions/ long duration, Starting on Tue01/14/25 at 1001, For piggyback infusion, administer at same rate as piggyback for a total of 25 mL. Enter 25 mL into dose field and piggyback rate into rate field of order. If piggyback is infusing at a rate less than 100 mL/hr, enter 25 mL into dose field and 100 mL/hr into rate field of order. For KVO fluids, enter rate of 20 mL/hr or less into rate field of order., Pre-op (day of surgery) 0.9 % sodium chloride infusion IntraVENous, at 5-250 mL/hr, PRN, if patient receiving piggyback infusions and maintenance fluids are not ordered OR KVO fluids to protect IV site / prevent frequent line interruptions/ long duration, Starting on Tue01/14/25 at 1531, For piggyback infusion, administer at same rate as piggyback for a total of 25 mL. Enter 25 mL into dose field and piggyback rate into rate field of order. If piggyback is infusing at a rate less than 100 mL/hr, enter 25 mL into dose field and 100 mL/hr into rate field of order. For KVO fluids, enter rate of 20 mL/hr or less into rate field of order., PACU only hydrALAZINE (APRESOLINE) injection 10 mg(Linked Group 1) 10 mg, IntraVENous, EVERY 15 MIN PRN, 2 doses, Starting on Tue01/14/25 at 1531, Until Discontinued, for SBP greater than 180 mmHg for 2 consecutive measurements taken from different sites, If heart rate is greater than 60 bpm, hold hydralazine and use labetalol if ordered, otherwise contact provider. Inform provider if SBP is still greater than 180 mmHg 10 minutes after second antihypertensive dose is administered., PACU only HYDROmorphone (DILAUDID) injection 0.25 mg 0.25 mg, IntraVENous, EVERY 5 MIN PRN, 4 doses, Starting on Tue01/14/25 at 1531, Until Discontinued, Pain Moderate (4-6), For Phase I. If Phase II oral narcotics have been administered in the last 60 minutes, do not administer IV narcotics unless specifically approved by provider., PACU only HYDROmorphone (DILAUDID) injection 0.5 mg 0.5 mg, IntraVENous, EVERY 5 MIN PRN, 4 doses, Starting on Tue01/14/25 at 1531, Until Discontinued, Pain Severe (7-10), For Phase I. If Phase II oral narcotics have been administered in the last 60 minutes, do not administer IV narcotics unless specifically approved by provider., PACU only 1534 (Given - Provid er: Radha Sharma, RN)1620 (Given - Provider: Radha Sharma RN) ipratropium 0.5 mg-albuterol 2.5 mg (DUONEB) nebulizer solution 1 Dose 1 Dose, Inhalation, ONCE PRN, 1 dose, Starting on Tue01/14/25 at 1531, Until Tue01/15/25 at 1531, Shortness of Breath, Wheezing, Initiate RT Bronchodilator Protocol: No, PACU only labetalol (NORMODYNE;TRANDATE) injection 10 mg(Linked Group 1) 10 mg, IntraVENous, EVERY 15 MIN PRN, 2 doses, Starting on Tue01/14/25 at 1531, Until Discontinued, High Blood Pressure, for SBP greater than 180 mmHg for 2 consecutive measurements taken from different sites., If heart rate is 60 bpm or less hold labetalol and use hydralazine if ordered, otherwise contact provider. Inform provider if SBP is still greater than 180 mmHg, 10 minutes after second antihypertensive dose is administered., PACU only lidocaine-EPINEPHrine 1 %-1:[id number] injection (CANCELED) PRN, Starting on Tue01/14/25 at 1316, Until Tue01/14/25 at 1445, Intra-op 1316 (Given - Provid er: Serg Vargas, DO - Comment: Placed on sterile field and verified with surgical garment assembly supervisor. Surgeon notified of pre-operative block prior to administration.) metoclopramide (REGLAN) injection 10 mg 10 mg, IntraVENous, ONCE PRN, 1 dose, Starting on Tue01/14/25 at 1531, Until Tue01/15/25 at 1531, Nausea, Secondary antiemetic therapy., PACU only naloxone 0.4 mg in 10 mL sodium chloride syringe IntraVENous, PRN, Opioid Reversal, Starting on Tue01/14/25 at 1531, PRN if respiratory rate is less than 6/min and patient is difficult to arouse then notify physician STAT. Mix 9 mL of sodium chloride 0.9% with 0.4 mg (1 mL) of naloxone (NARCAN) in 10 mL syringe. (Note: dilution is 0.04 mg/mL) Give 0.08 mg (2 mL of special dilution), slow IV push, repeat up to 0.4 mg (10 mL) or until patient is responsive to physical stimulation and respiratory rate is equal to or greater than 6 breaths/min. Continue to observe, if no response within 3 minutes of administration of 0.4 mg (10 mL) total, repeat dose (0.4 mg as administered previously). Concentration 0.04 mg/mL, PACU only oxyCODONE (ROXICODONE) immediate release tablet 5 mg (COMPLETED) 5 mg, Oral, ONCE PRN, 1 dose, Starting on Tue01/14/25 at 1531, Until Tue01/14/25 at 1603, Pain Moderate (4-6), Pain Severe (7-10), PHASE II, PACU only 1603 (Given - Provid er: Radha Sharma RN) prochlorperazine (COMPAZINE) injection 5 mg (COMPLETED) 5 mg, IntraVENous, ONCE PRN, 1 dose, Starting on Tue01/14/25 at 1531, Until Tue01/14/25 at 1719, Nausea, Initial antiemetic therapy., PACU only 1719 (Given - Provid er: Radha Sharma RN) sodium chloride flush 0.9 % injection 5-40 mL 5-40 mL, IntraVENous, PRN, Starting on Tue01/14/25 at 1001, Until Discontinued, Line Care, After every IV line use, For Line Patency: Peripheral IV = 5 mL; Midline or Central Line = 10 mL/lumen. If following IV push medication, administer flush at same rate as the IV push. Flush volume is determined by type of infusion therapy being given. For non-viscous solutions use: Peripheral IV = 5 mL Midline or Central Line = 10 mL/lumen For viscous solutions (i.e. blood components, parenteral nutrition, contrast media, or after obtaining blood sample) use: Peripheral IV = 10 mL Midline or Central Line = 20 mL/lumen, Pre-op (day of surgery) sodium chloride flush 0.9 % injection 5-40 mL 5-40 mL, IntraVENous, PRN, Starting on Tue01/14/25 at 1531, Until Discontinued, Line Care, After every IV line use, For Line Patency: Peripheral IV = 5 mL; Midline or Central Line = 10 mL/lumen. If following IV push medication, administer flush at same rate as the IV push. Flush volume is determined by type of infusion therapy being given. For non-viscous solutions use: Peripheral IV = 5 mL Midline or Central Line = 10 mL/lumen For viscous solutions (i.e. blood components, parenteral nutrition, contrast media, or after obtaining blood sample) use: Peripheral IV = 10 mL Midline or Central Line = 20 mL/lumen, PACU only No Frequency Medication Order 01/12/2025 01/13/2025 01/14/2025 fentaNYL (SUBLIMAZE) 100 MCG/2ML injection (COMPLETED) 1 dose, Starting on Tue01/14/25 at 1153, Until Tue01/14/25 at 1230, Shruthi Perry: cabinet overrideVicky Cortney: cabinet override 1230 (Given - Provid er: Shruthi Perry, RN) HYDROmorphone (DILAUDID) 1 MG/ML injection 1 dose, Starting on Tue01/14/25 at 1532, Until Tue01/15/25 at 0344, Radha Sharma: cabinet override, Radha Sharma: cabinet override 1545 (Due) lidocaine-EPINEPHrine 1 %-1:[id number] injection 1 dose, Starting on Tue01/14/25 at 1238, Until Tue01/15/25 at 0044, Marii Landin: cabinet override, Marii Landin: cabinet override 1245 (Due) midazolam (VERSED) 2 MG/2ML injection (COMPLETED) 1 dose, Starting on Tue01/14/25 at 1152, Until Tue01/14/25 at 1230, Shruthi Perry: cabinet overrideVicky Cortney: cabinet override 1230 (Given - Provid er: Shruthi Perry, RN) Linked Groups Order Group 1: labetalol (NORMODYNE;TRANDATE) injection 10 mgJump to med 10 mg, IntraVENous, EVERY 15 MIN PRN, 2 doses, Starting on Tue01/14/25 at 1531, Until Discontinued, High Blood Pressure, for SBP greater than 180 mmHg for 2 consecutive measurements taken from different sites., If heart rate is 60 bpm or less hold labetalol and use hydralazine if ordered, otherwise contact provider. Inform provider if SBP is still greater than 180 mmHg, 10 minutes after second antihypertensive dose is administered., PACU only Or hydrALAZINE (APRESOLINE) injection 10 mgJump to med 10 mg, IntraVENous, EVERY 15 MIN PRN, 2 doses, Starting on Tue01/14/25 at 1531, Until Discontinued, for SBP greater than 180 mmHg for 2 consecutive measurements taken from different sites, If heart rate is greater than 60 bpm, hold hydralazine and use labetalol if ordered, otherwise contact provider. Inform provider if SBP is still greater than 180 mmHg 10 minutes after second antihypertensive dose is administered., PACU only FOR RECORDS PERTAINING TO PATIENTS WHO ARE [...] BE BASED ON THE PRIMARY CLINICAL RECORDS. [employer] provides no warranty or guarantee of the accuracy or completeness of information in this document.
--- NOTE | 2025-02-01 12:38 | ED_ITS ---
HPI HPI - General Adult General Chief complaint: Urogenital-Female Stated complaint: uti complaints Time Seen by Provider: 02/01/25 12:06 Source: patient Mode of arrival: walk-in History of Present Illness HPI narrative: Patient was recently diagnosed with UTI and comes in today with a 12-hour history of back pain, chills, nausea and couple episodes of vomiting. She is 4 para 4 with all vaginal deliveries. She developed uterine prolapse and cystocele and underwent vaginal hysterectomy on January 14. A [place] catheter was inserted which fell off a few days later and she was instructed on how to self catheterize. She had been doing that until 4 days ago when she stopped. She has not had any urinary retention since then. Urine studies were performed and her grinding machine tender diagnosed a UTI and started her on Keflex. She states her urine culture grew E. coli is sensitive to Keflex. She started taking it yesterday. She 2 doses down and vomited the third. She is also status post laparoscopic cholecystectomy. Related Data Home Medications ?Medication ?Instructions ?Recorded ?Confirmed cephalexin 500 mg capsule 500 mg PO TID 02/01/25 02/01/25 ibuprofen 600 mg tablet 600 mg PO Q8H PRN fever or pain 02/01/25 02/01/25 lisinopril 5 mg tablet 5 mg PO DAILY 02/01/25 02/01/25 ondansetron HCl 4 mg tablet 4 mg PO Q6H PRN nausea and vomiting 02/01/25 02/01/25 sennosides 8.6 mg-docusate sodium 1 tab-cap PO DAILY PRN constipation 02/01/25 02/01/25 50 mg tablet (Stool Softener-Stimulant Laxative) Previous Rx's ?Medication ?Instructions ?Recorded albuterol sulfate 90 mcg/actuation 2 inh inhalation Q4H PRN shortness 08/09/24 aerosol inhaler of breath or wheezing #8.5 grams ondansetron 4 mg disintegrating 4 mg PO Q6H #10 tabs 02/01/25 tablet Allergies Allergy/AdvReac Type Severity Reaction Status Date / Time No Known Drug Allergies Allergy Verified 12/09/24 19:57 Opioid HPI Opioid Management Most Recent Opioid Data: Last Pain Scale 8 12/09/24 21:11 12/09/24 Review of Systems ROS Narrative All other systems are reviewed and are negative other than what is mentioned in the HPI. PFSH COUNTS INCLUDE 234 BEDS AT THE [facility] Social History Little interest or pleasure in doing things: not at all Feeling down, depressed, or hopeless: not at all Exam Narrative Exam Narrative: Afebrile and mild discomfort due to pain. Patient is mildly tachycardic. HEENT exam is normal to inspection. Neck is supple. Lung sounds are clear to auscultation bilaterally with good air entry. Heart has rapid rate and regular rhythm. S1 and S2 are normal. abdomen is protuberant, soft with diffuse mid and lower abdominal tenderness. There is no organomegaly. She has bilateral CVA tenderness, worse on the left. Lower extremities are warm and dry. She does not have unilateral leg swelling or calf tenderness. Speech and mentation are clear and intact. There is no facial asymmetry and she moves all extremities actively. Skin is warm and dry and is without pallor or icterus. Constitutional Vital Signs, click to edit/add: Last Vital Signs Temp 97.6 F 02/01/25 12:08 Pulse 107 H 02/01/25 12:08 Resp 18 02/01/25 12:08 BP 136/92 H 02/01/25 12:08 Pulse Ox 95 02/01/25 12:08 O2 Del Method Room Air 02/01/25 12:08 Course Vital Signs Vital signs: Vital Signs Temperature 97.6 F 02/01/25 12:08 Pulse Rate 107 H 02/01/25 12:08 Respiratory Rate 18 02/01/25 12:08 Blood Pressure 136/92 H 02/01/25 12:08 Pulse Oximetry 95 02/01/25 12:08 Oxygen Delivery Method Room Air 02/01/25 12:08 Temperature 97.6 F 02/01/25 12:08 Pulse Rate 107 H 02/01/25 12:08 Respiratory Rate 18 02/01/25 12:08 Blood Pressure 136/92 H 02/01/25 12:08 Pulse Oximetry 95 02/01/25 12:08 Oxygen Delivery Method Room Air 02/01/25 12:08 Medical Decision Making [facility] Narrative Medical decision making narrative: Patient was recently diagnosed with UTI but is experiencing some more systemic symptoms and pain going in her back. She is tender mainly in the left CVA. CT scan of the abdomen reveals mild left hydroureter and hydronephrosis with mild urothelial thickening. There is question of recently left passed a ureteral stone versus urinary tract infection and I am favoring infection based on her clinical presentation. She is treated with a liter of IV fluids and 1 g of IV Rocephin in the ED and given IV Zofran. For pain she is treated with IV Toradol and IV Dilaudid which has helped somewhat. She has oxycodone for pain at home which she may continue taking and was advised to add a stool softener. She is to resume Keflex 3 times a day and is to take Zofran for nausea and vomiting. Early follow-up with PCP is advised after the weekend and she is to return to the ED anytime for worsening symptoms. Differential Diagnosis Differential Diagnosis: Pyelonephritis, cystitis, kidney stone, colitis, diverticulitis. Lab Data Labs: Lab Results 02/01/25 02/01/25 Range/Units 12:46 12:52 WBC 11.5 H (4.0-11.0) 10^3/uL RBC 4.23 (4.20-5.40) 10^6/uL Hgb 13.0 (12.0-16.0) g/dL Hct 39.2 (36.0-48.0) % MCV 92.7 (81.0-99.0) fL MCH 30.7 (26.7-34.0) pg MCHC 33.2 (29.9-35.2) g/dL RDW 12.6 (11.0-15.0) % Plt Count 277 (150-450) 10^3/uL MPV 10.1 (9.5-13.5) fL Neut % (Auto) 78.3 H (43.0-75.0) % Lymph % (Auto) 13.4 L (20.5-60.0) % [place] % (Auto) 7.2 (1.7-12.0) % Eos % (Auto) 0.5 L (0.9-7.0) % Baso % (Auto) 0.3 (0.2-2.0) % Neut # (Auto) 9.0 H (1.4-6.5) 10^3/uL Lymph # (Auto) 1.6 (1.2-3.8) 10^3/uL [place] # (Auto) 0.8 (0.3-0.8) 10^3/uL Eos # (Auto) 0.1 (0.0-0.7) 10^3/uL Baso # (Auto) 0.0 (0.0-0.1) 10^3/uL Abs Immat Gran (auto) 0.03 (0.00-0.03) 10^3/uL Imm/Tot Granulo (auto) 0.3 (0.0-0.5) % Sodium 139 (136-145) mmol/L Potassium 3.7 (3.5-5.1) mmol/L Chloride 103 (98-107) mmol/L Carbon Dioxide 25.7 (21.0-32.0) mmol/L Anion Gap 14.0 BUN 8.0 (7.0-18.0) mg/dL Creatinine 0.88 (0.55-1.02) mg/dL Est GFR ( Amer) >60 (>=60 mL/min/1.73m^2) Est GFR (Non-Af Amer) >60 (>=60 mL/min/1.73m^2) BUN/Creatinine Ratio 9.1 Glucose 133 H (74-106) mg/dL Calcium 9.3 (8.5-10.1) mg/dL Total Bilirubin 0.5 (0.2-1.0) mg/dL AST 17 (15-37) U/L ALT 28 (14-59) U/L Alkaline Phosphatase 67 (46-116) U/L Total Protein 7.8 (6.4-8.2) g/dL Albumin 4.0 (3.4-5.0) g/dL Globulin 3.8 g/dL Albumin/Globulin Ratio 1.1 Lipase 33.0 (16.0-77.0) U/L Urine Color Lt. yellow (YELLOW) Urine Clarity Sl cloudy (CLEAR) Urine pH 6.0 (5.0-9.0) Ur Specific [place] 1.025 (1.005-1.025) Urine Protein Trace (NEG/TRACE) mg/dL Urine Glucose (UA) Negative (NEGATIVE) mg/dL Urine Ketones Negative (NEGATIVE) mg/dL Urine Occult Blood Moderate A (NEGATIVE) Urine Nitrite Positive A (NEGATIVE) Urine Bilirubin Negative (NEGATIVE) Urine Urobilinogen 0.2 (0.2-1.0) EU/dL Ur Leukocyte Esterase Moderate A (NEGATIVE) Urine RBC 5-10 A (0-2) #/HPF Urine WBC 75-100 A (NONE SEEN) #/HPF Ur Squamous Epith Cells Few A (NONE/RARE) #/LPF Urine Crystals None seen (None Seen) #/HPF Urine Bacteria Small A (NONE SEEN) #/HPF Urine Casts None seen (NONE SEEN) #/LPF Urine Mucus Moderate A (NONE SEEN) Ur [place] [place] Dis[place] Chief Complaint: Urogenital-Female Clinical Impression: Acute pyelonephritis Patient Disposition: Home, Self-Care Time of Disposition Decision: 13:45 Condition: Good Mode of Transportation: Private Vehicle Prescriptions / Home Meds: New ondansetron 4 mg tablet,disintegrating 4 mg PO Q6H Qty: 10 0RF No Action albuterol sulfate 90 mcg/actuation HFA aerosol inhaler 2 inh inhalation Q4H PRN (Reason: shortness of breath or wheezing) Qty: 8.5 0RF cephalexin 500 mg capsule 500 mg PO TID ibuprofen 600 mg tablet 600 mg PO Q8H PRN (Reason: fever or pain) lisinopril 5 mg tablet 5 mg PO DAILY ondansetron HCl 4 mg tablet 4 mg PO Q6H PRN (Reason: nausea and vomiting) sennosides-docusate sodium [Stool Softener-Stimulant Laxat] 8.6-50 mg tablet 1 tab-cap PO DAILY PRN (Reason: constipation) Print Language: Korean Instructions: Kidney Infection (ED) Additional Instructions: Follow-up with your PCP in 3 days. Resume pain medication at home and also take a stool softener to prevent constipation. Start taking Keflex. Zofran is prescribed for nausea and vomiting. Drink extra fluids. Return for worsening symptoms. Referrals: [facility] [Primary Care Provider] - 1 week
[2025-02-01 12:58] LABS: Basophils Percent Auto 0.3 % (0.2-2.0); Eosinophils Absolute Auto 0.1 10^3/uL (0.0-0.7); Eosinophils Percent Auto 0.5 % (0.9-7.0); Hematocrit 39.2 % (36.0-48.0); Immature Granulocytes Abs Auto 0.03 10^3/uL (0.00-0.03); Immature Granulocytes Pct Auto 0.3 % (0.0-0.5); Lymphocytes Absolute Auto 1.6 10^3/uL (1.2-3.8); Lymphocytes Percent Auto 13.4 % (20.5-60.0); Mean Corpuscular HGB Conc 33.2 g/dL (29.9-35.2); Mean Corpuscular Hemoglobin 30.7 pg (26.7-34.0); Mean Corpuscular Volume 92.7 fL (81.0-99.0); Mean Platelet Volume 10.1 fL (9.5-13.5); Monocytes Absolute Auto 0.8 10^3/uL (0.3-0.8); Monocytes Percent Auto 7.2 % (1.7-12.0); Neutrophils Percent Auto 78.3 % (43.0-75.0); Platelet Count 277 10^3/uL (150-450); Red Blood Count 4.23 10^6/uL (4.20-5.40); Red Cell Distribution Width 12.6 % (11.0-15.0); White Blood Count 11.5 10^3/uL (4.0-11.0)
[2025-02-01] MEDS: HYDROMORPHONE HCL 0.5 MG/0.5 ML SYRINGE IV ×2 (12:58→14:01)
[2025-02-01] MEDS: KETOROLAC TROMETHAMINE 30 MG/ML VIAL 15 MG IVP (12:58)
[2025-02-01] MEDS: ONDANSETRON PF 4 MG/2 ML VIAL IV (12:58)
[2025-02-01] MEDS: 0.9 % SODIUM CHLORIDE 1,000 ML 1000 ML IV (12:58)
[2025-02-01 13:01] LABS: Bilirubin Urine NEGATIVE (NEGATIVE); Blood Urine MODERATE (NEGATIVE); Clarity Urine SL CLOUDY (CLEAR); Color Urine LT. YELLOW (YELLOW); Glucose Urine UA NEGATIVE (NEGATIVE); Ketones Urine NEGATIVE (NEGATIVE); Leukocyte Esterase Urine MODERATE (NEGATIVE); Nitrite Urine POSITIVE (NEGATIVE); Protein Urine TRACE mg/dL (NEG/TRACE); Specific Gravity Urine 1.025 (1.005-1.025); Urobilinogen Urine 0.2 EU/dL (0.2-1.0)
[2025-02-01 13:07] LABS: Urine Microscopic Indicated YES
[2025-02-01 13:12] LABS: Bacteria Urine SMALL #/HPF (NONE SEEN); Cast Seen? NONE SEEN #/LPF (NONE SEEN); Crystals Seen? None Seen #/HPF (None Seen); Mucus Urine MODERATE (NONE SEEN); Squamous Epithelial Cell Urine FEW #/LPF (NONE/RARE); Urine Culture Indicated YES-FRMC; WBC Urine 75-100 #/HPF (NONE SEEN)
[2025-02-01 13:19] LABS: Alanine Aminotransferase 28 U/L (14-59); Albumin Globulin Ratio 1.1; Alkaline Phosphatase 67 U/L (46-116); Aspartate Amino Transferase 17 U/L (15-37); BUN Creatinine Ratio 9.1; Bilirubin Total 0.5 mg/dL (0.2-1.0); Calcium 9.3 mg/dL (8.5-10.1); Carbon Dioxide 25.7 mmol/L (21.0-32.0); Chloride 103 mmol/L (98-107); Estimated GFR (African America >60 (>=60 mL/min/1.73m^2); Estimated GFR (Non-African Ame >60 (>=60 mL/min/1.73m^2); Globulin 3.8 g/dL; Glucose 133 mg/dL (74-106); Potassium 3.7 mmol/L (3.5-5.1); Sodium 139 mmol/L (136-145); Total Protein 7.8 g/dL (6.4-8.2)
[2025-02-01] MEDS: CEFTRIAXONE 1,000 MG in 0.9 % SODIUM CHLORIDE 50 ML 100 MG IV (13:23)
[2025-02-01 14:00] VITALS: BP 119/94; PULSE 90; O2SAT 95
== END 2025-02-01 14:16 | disposition home or self-care (01) ==
PROVIDERS: Emergency Provider Emergency Medicine
DX: N10 Acute pyelonephritis (principal); Z90.710 Acquired absence of both cervix and uterus; Z90.49 Acquired absence of other specified parts of digestive tract
CPT/HCPCS: 36415; 74176; 80053; 81001; 83690; 84703; 85025; 87086; 96365; 96375; 96376; 99284; J0696; J1171; J1885; J2405

== ENCOUNTER 2025-02-16 18:49 | Emergency (ER) | payer OTHER, SELFPAY ==
[2025-02-16 18:53] VITALS: BP 140/95; PULSE 84; TEMP 36.9; O2SAT 97; BMI 30.1
--- OUTSIDE RECORDS SUMMARY | 2025-02-16 18:54 | XMS_ITS | CCD ---
Author Organization [facility] Care Team Providers Care Floor Assembler Name Role Phone BURKE HOPE Unavailable Unavailable BURKE HOPE Unavailable Unavailable MISC, DOCTOR Unavailable Unavailable JAYY BURKE Unavailable Unavailable Henok Crawford Unavailable Keron Carson Unavailable NO FAMILY, PHYSICIAN Primary Care Provider Unava ilable DO Gt Haro Admit Provider MD Eladio Mayo Attending Provider Clonch, CSTFA Brian Other Provider Unavailabl e MD Keron Carson Other Provider MD Jim Cardona Other Provider MD Keron Carson Attending Provider NON STAFF Primary Care Provider Unavaililia e NON STAFF Primary Care Provider Unavailabl e MD Keron Carson Attending Provider [phone] BEBE Cruz Primary Care Provider BUFFY STEARNS Attending Unavailable NELY CRUZ Referring Unavailable NELY CRUZ Primary Care Unavailable Nely Cruz PA-C Primary Care Provider [phone] Nely Cruz PA-C Primary Care Provider NELY CRUZ Primary Care Unavailable SERG VARGAS Referring Unavailable SERG VARGAS Referring Unavailable NELY CRUZ Primary Care Unavailable SERG VARGAS Attending Unavailable SERG VARGAS Admitting Unavailable NELY CRUZ Primary Care Unavailable SERG VARGAS Attending Unavailable SERG VARGAS Admitting Unavailable NELY CRUZ Primary Care Unavailable Wong Cloud Attending Unavailable Wong Cloud Admitting Unavailable Nely Cruz Primary Care Unavailable Nancy SPENCE, Nely Rothman Primary Care Provider Wong Cloud MD Attending Provider Allergies Allergy Classification Reported Allergen(s) Allergy Type Date of Onset Reaction(s) Facility (10 sources) Shellfish Propensity to adverse reactions Unknown [employer] Other (10 sources) Shellfish Drug allergy Unknown [employer] Other (4 sources) Shellfish; Translations: [shellfish derived] Allergy to substance 0 Anaphylaxis [facility] (2 sources) SHELLFISH CONTAINING PRODUCTS; Translations: [SHELLFISH CONTAINING PRODUCTS] Propensity to adverse reactions to food (disorder) Rash [facility] (4 sources) Seafood Propensity to adverse reactions to drug 4 [facility] (4 sources) Shellfish Propensity to adverse reactions to drug 5 Hives, Rash, Shortness Of Breath, Swelling [facility] Medications Current Medications Medication Drug Class(es) Dates [...] PRN Active ARIPiprazole 15 mg oral tablet (18 sources) Atypical Antipsychotic Start: 09-07-2022 End: 09-07-2022 take 1 tablet by mouth once daily Aripiprazole 15 mg tablet Active 15 MG PO Daily September 07, 2022 12:00am Start: 09-07-2022 End: 09-07-2022 Aripiprazole Discontinued MG TABLET September 07, 2022 12:00am September 07, 2022 5:51pm ARIPiprazole Act ami busPIRone hydrochloride 15 mg oral tablet (14 sources) Start: 09-07-2022 take 1 tablet by mouth at bedtime Buspirone 15 mg tablet Active 15 MG PO Bedtime September 07, [...] of surgery) cephalexin 500 mg oral capsule (7 sources) Cephalosporin Antibacterial Start: 01-29-2025 End: 02-05-2025 take 1 capsule by mouth three times daily cephALEXin (KEFLEX) 500 MG capsule Take 1 capsule by mouth 3 times daily for 7 days 21 capsule 01/29/2025 02/05/2025 Active Start: 12-19-2024 take 1 capsule by mo [facility] twice daily cephALEXin (KEFLEX) 250 MG capsule Take 1 capsule by mouth 2 times daily 2 capsule 12/19/2024 Active Start: 09-11-2022 End: 01-21-2025 cephALEXin (KEFLEX) 500 MG c apsule Take 1 capsule by mouth 3 times daily for 7 days Take for only 3 days if discharged home without martinez catheter 21 capsule 01/14/2025 01/21/2025 Active cyclobenzaprine hydrochloride 10 mg oral tablet (7 sources) Muscle Relaxant Start: 12-20-2022 take 1 tablet by mouth every twenty-four hours Cyclobenzaprine HCl 10 MG 1 tablet at bedtime as needed Orally Once a day for 30 days Jul, Active Start: 09-11-2022 take 1 tablet by cristina th three times daily as needed for muscle spasms Cyclobenzaprine 10 mg tablet Active 10 MG PO Three times daily as needed for back spasms 40 September 11, 2022 12:00am dexlansoprazole 30 mg delayed release oral capsule (11 sources) Proton Pump Inhibitor Start: 07-26-2022 take 1 capsule by mouth every twenty-four hours Dexilant 30 MG 1 capsule Orally Once a day for 30 day(s) Jun, Active Dexlansoprazole 30 mg capsule,biphase delayed releas (1 source) Start: 09-07-2022 take 1 capsule by mouth once daily Dexlansoprazole 30 mg capsule,biphase delayed releas Active 30 MG PO Daily September 07, 2022 12:00am 1 ml diphenhydrAMINE hydrochloride 50 mg/ml cartridge [...] mouth once daily as needed for constipation sennosides-docusate sodium (SENOKOT-S) 8.6-50 MG tablet Take [...] of urine. predniSONE 5 mg oral tablet (6 sources) Start: 08-16-2023 predniSONE 5 M G 1 tablet 3 times a day for 3 days, 1 tablets 2 times a day for 3 days , 1 tablet 1 times a day for 3 days Orally as directed for 9 days Jul, Active Start: 09-11-2022 Prednisone 10 mg tablets,dose pack Active 1 dose pk PO per package directions [...] the ear. sertraline 100 mg oral tablet (18 sources) Serotonin Reuptake Inhibitor Start: 09-07-2022 take 1 tablet by mouth once daily Sertraline 100 mg tablet Active 100 MG PO Daily September 07, 2022 12:00am Start: 04-17-2020 End: 09-07-2022 take 1 tablet by mouth once daily in the morning Sertraline 50 mg Tablet Discontinued 50 MG PO Every morning April [...] PACU only nicotine 2 mg chewing gum (4 sources) Cholinergic Nicotinic Agonist Start: 04-17-2020 End: 09-07-2022 Nicotine (Polacrilex) 2 mg Gum Discontinued 2 MG BUCCAL Q2H as needed for Nicotine Cravings April 17, 2020 12:00am September 07, 2022 5:51pm nitrofurantoin, macrocrystals 25 mg / nitrofurantoin, monohydrate 75 mg oral capsule (4 sources) Nitrofuran Antibacterial Start: 04-17-2020 End: 09-07-2022 take 1 capsule by mouth twice daily at mealtime Nitrofurantoin Monohyd/M-Cryst 100 mg Capsule Discontinued 100 MG PO Twice daily with meals April 17, 2020 12:00am September 07, 2022 5:51pm oxyCODONE hydrochloride 5 mg oral tablet (6 sources) Opioid Agonist Start: 01-14-2025 End: 01-14-2025 take 1 dose by mouth once 5 mg, Oral, ONCE PRN, 1 dose, Starting on Tue01/14/25 at 1531, Until Tue01/14/25 at 1603, Pain Moderate (4-6), Pain Severe (7-10), PHASE II, PACU only Start: 12-19-2024 End: 12-19-2024 oxyCODONE (ROXICODONE) immed iate release tablet 5 mg Start: 09-11-2022 take 5-10 mg by mout h every six hours as needed for pain Oxycodone 5 mg tablet Active 5 - 10 MG PO Q6H as needed for Pain 40 8 September 11, 2022 (10 sources) *please review for potential _update for e-prescription and drug interaction check* Not-Taking prochlorperazine 5 mg/ml injectable solution (1 source) Phenothiazine Start: 01-14-20 End: 01-14-20 25 5 mg, IntraVENous, ONCE PRN, 1 dose, Starting on Tue01/14/25 at 1531, Until Tue01/14/25 at 1719, Nausea, Initial antiemetic therapy., PACU only sucralfate 1000 mg oral tablet (14 sources) Aluminum Complex Start: 12-25-19 End: 04-13-20 take 1 tablet by mouth four times daily Sucralfate 1 gram tablet Discontinued 1 TAB PO Four times daily December 25, 2018 1:00am April 13, 2020 11:55am Sucralfate Activ e traMADol hydrochloride 50 mg oral tablet (4 sources) Opioid Agonist Start: 09-07-2022 End: 09-11-2022 take 1 tablet by mouth every six hours as needed for pain Tramadol 50 mg tablet Discontinued 50 MG PO Q6H as needed for Pain September 07, 2022 12:00am September 11, 2022 10:27am traZODone hydrochloride 50 mg oral tablet (4 sources) Serotonin Reuptake Inhibitor Start: 04-17-2020 End: 09-07-2022 take 1 tablet by mouth once daily at bedtime as needed Trazodone 50 mg Tablet Discontinued 50 MG PO Daily at bedtime as needed for Insomnia April 17, 2020 12:00am September 07, 2022 5:53pm Problems Active Problems Problem Classification Problem Date Documented Date Episodic/Chronic Abdominal pain (12 sources) Abdominal pain; Translations: [Unspecified abdominal pain] Onset: 06-29-2022 Resolved: 06-29-2022 Episodic Esophageal disorders (16 sources) Gastroesophageal reflux disease; Translations: [Gastro-esophageal reflux [...] unspecified] Onset: 12-13-2024 12-13-2024 Episodic Mood disorders (4 sources) Recurrent major depression; Translations: [Major depressive disorder, recurrent, unspecified] 04-14-2020 Chronic Nutritional deficiencies (4 sources) Vitamin D deficiency; Translations: [Vitamin D deficiency, unspecified] 04-14-2020 Chronic Other acquired deformities (5 sources) Spondylolisthesis; Translations: [Spondylolisthesis, cervical region] Episodic Other acquired deformities (2 sources) Spondylolisthesis, cervical region Episodic Other connective tissue disease (3 sources) Arthrodesis status; Translations: [ARTHRODESIS STATUS] Onset: 09-21-2017 Episodic Other connective tissue disease (4 sources) Muscle weakness of upper limb; Translations: [Other symptoms and signs involving the musculoskeletal system] 09-07-2022 Episodic Other connective tissue disease (1 source) Other symptoms and signs involving the musculoskeletal system; Translations: [Other musculoskeletal symptoms referable to limbs] 09-11-2022 Episodic Other diseases of bladder and urethra (4 sources) Overactive bladder; 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] Onset: 12-13-2024 12-31-2024 Chronic Other diseases of bladder and urethra (1 source) Other neuromuscular dysfunction of bladder; 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] Onset: 12-31-2024 Chronic Other fractures (4 sources) Fracture of cervical spine; Translations: [Fracture [...] Spondylosis; intervertebral disc disorders; other back problems (10 sources) Displacement of cervical intervertebral disc; Translations: [Other cervical disc displacement, unspecified cervical region] Onset: 08-04-2021 11-26-2021 Chronic Spondylosis; intervertebral disc disorders; other back problems (20 sources) Neck pain; Translations: [Cervicalgia] Onset: 09-03-2021 09-08-2022 Episodic Sprains and strains (8 sources) Acute cervical sprain; Translations: [Sprain of joints and ligaments of unspecified parts of neck, initial encounter] 09-22-2019 Episodic Suicide and intentional self-inflicted injury (4 sources) Suicidal thoughts; Translations: [Suicidal ideations] 04-13-2020 Episodic Urinary tract infections (4 sources) Urinary tract infectious disease; Translations: [Urinary tract infection, site not specified] 04-13-2020 Episodic Past or Other Problems Problem Classification Problem Date Documented Da te Episodic/Chronic Biliary tract disease (1 source) Cholecystitis; Translations: [Cholecystitis, unspecified] Onset: 01-24-2020 01-24-2020 Episodic Malaise and fatigue (3 sources) Weakness; Translations: [WEAKNESS] Onset: 09-19-2017 Episodic Unclassified (1 source) Onset: 11-09-2022 11-09-2022 Results Test Name Value Interpretation Reference Range Facility Urine Cultureon 02-01-2025 Bacteria identified Cx Nom (U) 15,000 colonies/ml mixed bacterial skin contaminants including mixed gram negative bacilli - 2 Days PERFORMED BY: [place] [address] PATHOLOGIST [employer] ELIAS Goldstein [facility] Comment on above: Performed By: #### C UU #### [address] Cult,Urineon 01-31-2025 Cult,Urine Specimen Description .CLEAN CATCH URINE Special Requests Site: Urine Culture ESCHERICHIA COLI >100,000 CFU/ML Report Status FINAL 01/31/2025 SUSCEPTIBILITY Organism ESCHERICHIA COLI Method STANISLAW Ampicillin <=2 SUSCEPTIBLE Cefazolin <=4 SUSCEPTIBLE Cefazolin sensitivity results can be used to predict the effectiveness of oral cephalosporins (eg. Cephalexin) in uncomplicated Urinary Tract Infections due to E. coli, K. pneumoniae, and P. mirabilis Ceftriaxone <=0.25 SUSCEPTIBLE ESBL NEGATIVE Gentamicin 4 SUSCEPTIBLE Levofloxacin <=0.12 SUSCEPTIBLE Nitrofurantoin <=16 SUSCEPTIBLE Piperacillin/Tazobactam <=4 SUSCEPTIBLE Tobramycin <=1 SUSCEPTIBLE Trimethoprim/Sulfa <=20 SUSCEPTIBLE Susceptible [facility] Comment on above: Performed By: #### U RC #### [address] [address] [employer] Attendant: Marcos Villatoro MD Surgical Pathology Reporton 01-14-2025 Surgical Pathology Report (NOTE) Path Number: [id number] -- Diagnosis -- A. UTERUS, CERVIX, BILATERAL FALLOPIAN TUBES AND ENTEROCELE SAC, HYSTERECTOMY AND BILATERAL SALPINGECTOMY: - Unremarkable cervix. - Proliferative endometrium, negative for hyperplasia and carcinoma. - Leiomyomata. - Unremarkable bilateral fallopian tubes with benign paratubal cyst. B. VAGINAL MUCOSA, EXCISION: Unremarkable squamous mucosa. Dayana Hood M.D. Electronically Signed Out kmg201/17/2025 Clinical Information Pre-Op Diagnosis: MIXED INCONTINENCE URGE [...] cm. No masses or lesions are identified. [employer] sections are submitted in 10c as follows: 1 anterior cervix 2 posterior cervix 3 anterior endomyometrium 4 posterior endomyometrium 5 nodules 6-7 site safety representative one fallopian tube 8-9 site safety representative one fallopian tube 10 additional tissue within specimen container. B. LYNNE GAN, VAGINAL MUCOSA Received in formalin is a 5.5 x 4.0 x 1.3 cm aggregate of hilliard-hood, wrinkled and rubbery vaginal mucosa. No lesions are identified. [employer] sections 1c. tm Zoila Scott/se:01/15/2025 Microscopic Description A, B. Microscopic examination performed. Processing Lab: [address] [id number] Interpretation Performed at [address] [id number] SURGICAL PATHOLOGY CONSULTATION Patient Name: LYNNE GAN [facility] Rec: [id number] [facility] ANATOMIC PATHOLOGY [address] [place] [id number] Normal [facility] Albuminon 01-02-2025 Albumin [Mass/Vol] 4.6 g/dL 3.5 - 5.2 g/dL [facility] Albumin [Mass/Vol] 4.6 g/dL Normal 3.5-5.2 [facility] Comment on above: Performed By: #### A LB, CBC, BMP #### [facility] [employer] [address] [place] [address] [employer] Attendant: Marcos Villatoro MD Basic Metabolic Panelon Anion gap [Moles/Vol] 12 mmol/L 9 - 16 mmol/L [facility] [employer] Calcium [Mass/Vol] 9.8 mg/dL 8.6 - 10. 4 mg/dL [facility] [employer] Chloride [Moles/Vol] 105 mmol/L 98 - 10 7 mmol/L [facility] [employer] CO2 [Moles/Vol] 24 mmol/L 20 - 31 mmol/L [facility] [employer] Creatinine [Mass/Vol] 0.7 mg/dL 0.6 - 0.9 mg/dL [facility] Shayna Hernández [facility] Comment on above: These results are not [...] 103 mg/dL High 74 - 99 mg/dL [facility] Interpretation and review of laboratory results Abnormal [facility] Potassium [Moles/Vol] 4.1 mmol/L 3.7 - 5.3 mmol/L [facility] Sodium [Moles/Vol] 141 mmol/L 136 - 145 mmol/L [facility] Urea nitrogen [Mass/Vol] 13 mg/dL 6 - 20 mg/dL [facility] Basic Metabolic Profon 01-02 Anion gap [Moles/Vol] 12 mmol/L Normal 9-16 [facility] Comment on above: Performed By: #### A LB CBC, BMP #### [facility] [employer] [address] [place] [address] [employer] Attendant: Marcos Villatoro MD Calcium [Mass/Vol] 9.8 mg/dL Normal 8.6-10.4 [facility] Comment on above: Performed By: #### A LB CBC, BMP #### [employer] [address] [place], [place] [id number] [employer] Attendant: Marcos Villatoro MD Chloride [Moles/Vol] 105 mmol/L Normal 98-107 [facility] Comment on above: Performed By: #### A LB CBC, BMP #### [facility] [facility] [address] [place] [address] [employer] Attendant: Marcos Villatoro MD CO2 [Moles/Vol] 24 mmol/L Normal 20-31 [facility] Comment on above: Performed By: #### A LB CBC, BMP #### [facility] [employer] [address] [place] [address] [employer] Attendant: Marcos Villatoro MD Creatinine [Mass/Vol] 0.7 mg/dL Normal 0.6-0.9 [facility] Comment on above: Performed By: #### A LB CBC, BMP #### [facility] [employer] [address] [place] [address] [employer] Attendant: Marcos Villatoro MD GFR/1.73 sq M.predicted among non-blacks MDRD (S/P/Bld) [Vol rate/Area] mL/min/{1.73_m2} Normal >60 [facility] Comment on above: Result Comment: These results [...] renal tubular secretion. Performed By: #### A JIGNESH CBC, BMP #### [facility] [employer] [address] [place] [address] [employer] Attendant: Marcos Villatoro MD Glucose [Mass/Vol] 103 mg/dL High 74-99 [facility] Comment on above: Performed By: #### A JIGNESH CBC, BMP #### [facility] [employer] [address] [place] [address] [employer] Attendant: Marcos Villatoro MD Potassium [Moles/Vol] 4.1 mmol/L Normal 3.7-5.3 [facility] Comment on above: Performed By: #### A LB, CBC, BMP #### [facility] [address] [place] [address] [employer] Attendant: Marcos Villatoro MD Sodium [Moles/Vol] 141 mmol/L Normal 136-145 [facility] Comment on above: Performed By: #### A JIGNESH, CBC, BMP #### [facility] [address] [place] [address] [employer] Attendant: Marcos Villatoro MD Urea nitrogen [Mass/Vol] 13 mg/dL Normal 6-20 [facility] Comment on above: Performed By: #### A LB, CBC, BMP #### [facility] [address] [place], [place] [id number] [employer] Attendant: Marcos Villatoro MD CBCon 01-02-2025 Erythrocyte distribution width (RBC) [Ratio] 12.4 % 11.8 - 14.4 % [facility] Hematocrit (Bld) [Volume fraction] 41.0 % 36.3 - 47.1 % [facility] Hemoglobin (Bld) [Mass/Vol] 13.3 g/dL 11.9 - 15.1 g/dL [facility] MCH (RBC) [Entitic mass] 30.0 pg 25.2 - 33.5 pg [facility] MCHC (RBC) [Mass/Vol] 32.4 g/dL 28.4 - 34.8 g/dL [facility] MCV (RBC) [Entitic vol] 92.6 fL 82.6 - 102.9 fL [facility] Nucleated RBC/100 WBC (Bld) [Ratio] 0.0 % 0.0 per 100 WBC [facility] Platelet mean volume (Bld) [Entitic vol] 11.1 fL 8.1 - 13.5 fL [facility] Platelets (Bld) [#/Vol] 261 10*3/uL [facility] RBC (Bld) [#/Vol] 4.43 10*6/uL 3.95 - 5.1 1 m/uL [facility] WBC other (Bld) [#/Vol] 7.0 [facility] Erythrocyte distribution width (RBC) [Ratio] 12.4 % Normal 11.8-14.4 [facility] Comment on above: Performed By: #### A LB, CBC, BMP #### [facility] [address] [place] [address] [employer] Attendant: Marcos Villatoro MD Hematocrit (Bld) [Volume fraction] 41.0 % Normal 36.3-47.1 [facility] Comment on above: Performed By: #### A LB, CBC, BMP #### [address] [address] [employer] Attendant: Marcos Villatoro MD Hemoglobin (Bld) [Mass/Vol] 13.3 g/dL Normal 11.9-15.1 [facility] Comment on above: Performed By: #### A LB, CBC, BMP #### [place] [address] [employer] Attendant: Marcos Villatoro MD MCH (RBC) [Entitic mass] 30.0 pg Normal 25.2-33.5 [facility] Comment on above: Performed By: #### A LB, CBC, BMP #### [place] [address] [employer] Attendant: Marcos Villatoro MD MCHC (RBC) [Mass/Vol] 32.4 g/dL Normal 28.4-34.8 [facility] Comment on above: Performed By: #### A LB, CBC, BMP #### [place] [address] [employer] Attendant: Marcos Villatoro MD MCV (RBC) [Entitic vol] 92.6 fL Normal 82.6-102.9 [facility] Comment on above: Performed By: #### A LB, CBC, BMP #### [address] [address] [employer] Attendant: Marcos Villatoro MD NRBC Automated 0.0 per 100 WBC Normal 0.0 [facility] Comment on above: Performed By: #### A LB, CBC, BMP #### [place] [address] [employer] Attendant: Marcos Villatoro MD Platelet mean volume (Bld) [Entitic vol] 11.1 fL Normal 8.1-13.5 [facility] Comment on above: Performed By: #### A LB, CBC, BMP #### [facility] [address] [place] [address] [employer] Attendant: Marcos Villatoro MD Platelets (Bld) [#/Vol] 261 10*3/uL Normal 138-453 [facility] Comment on above: Performed By: #### A LB, CBC, BMP #### [facility] [address] [place] [address] [employer] Attendant: Marcos Villatoro MD RBC (Bld) [#/Vol] 4.43 10*6/uL Normal 3.95-5.11 [facility] Comment on above: Performed By: #### A LB, CBC, BMP #### [facility] [employer] [address] [place] [address] [employer] Attendant: Marcos Villatoro MD WBC (Bld) [#/Vol] 7.0 10*3/uL Normal 3.5-11.3 [facility] Comment on above: Performed By: #### A LB, CBC, BMP #### [facility] [employer] [address] [place] [address] [employer] Attendant: Marcos Villatoro MD EKG 12 LeadOrdered By: Kelli Merrill on 01-02-2025 Atrial Rate 83 BPM [email or web address] Phone: P [place] 58 degrees [email or web address] Phone: P-R Interval 168 ms [email or web address] Phone: Q-T Interval 390 ms [email or web address] Phone: QRS Duration 88 ms [email or web address] Phone: QTc Calculation (Bazett) 458 ms [email or web address] Phone: R [place] 4 degrees Jacoby Jim [facility] [employer] Phone: T [place] 15 degrees Jacoby Jim [facility] [employer] Phone: Ventricular Rate 83 BPM Jacoby lam [facility] [employer] Work Phone: Jacoby Jim [facility] [employer] Phone: EKG 12 Leadon 01-02-2025 Normal sinus rhythm Normal ECG No previous ECGs available [facility] Celine Latif MD - 01/02/2025 Normal sinus rhythm Normal ECG No previous ECGs available [facility] No Panel Informationon 01-02 [facility] [employer] TYPE AND SCREENon 01-02-2025 ABO and Rh group Nom (Bld) Blood group A Rh(D) positive [facility] Arm Band Number [id number] [facility] Blood Bank Sample Expiration 01/17/2025,2359 [facility] Blood group antibodies identified Nom Negative [facility] Jacoby [facility] Type + Screenon 01-02-2025 Type + Screen Sample Expiration 01/17/2025,2359 Arm Band Number [id number] ABO/Rh(D) A POSITIVE Antibody Screen NEGATIVE Normal [facility] Comment on above: Performed By: #### T YS #### [place] [id number] [employer] Attendant: Farhat Huerta MD HCG,,Ur(POC)on 11-29 HCG,,Ur(POC) Negative [...] b-hCG level is suggested[place] [address] POCT urine pregnancyon 12-19 Beta HCG ( test) Ql (U) Negative NEGATIVE [facility] Comment on above: Specimens with hCG l evels near the threshold of the test (25 mIU/mL) may give a negative or indeterminate result. In such cases, another test should be performed with a new specimen in 48-72 hours. If early is suspected clinically in this setting, correlation with quantitative serum b-hCG level is suggested. TESTING PERFORMED AT [address] [address] [facility] Basophils Auto (Bld) [#/Vol] Ordered By: Eladio Mayo on 09-11-2022 Basophils (Bld) [#/Vol] 0.0 10*3/uL 0.0-0.2 [facility] Basophils/100 WBC Auto (Bld) Ordered By: Eladio Mayo on 09-11-2022 Basophils/100 WBC (Bld) 0.1 % . [facility] Creatinine and Glomerular fi ltration rate.predicted panel (S/P/Bld)Ordered By: Eladio Mayo on 09-11-2022 Creatinine [Mass/Vol] 0.65 mg/dL 0.44-1.03 [facility] Eosinophils Auto (Bld) [#/Vo l]Ordered By: Eladio Mayo on 09-11-2022 Eosinophils (Bld) [#/Vol] 0.0 10*3/uL 0.0-0.45 [facility] [facility] Eosinophils/100 WBC Auto (Bl d)Ordered By: Eladio Mayo on 09-11-2022 Eosinophils/100 WBC (Bld) 0.0 % . [facility] Erythrocyte distribution wid th Auto (RBC) [Ratio]Ordered By: Eladio Mayo on 09-11-2022 Erythrocyte distribution width (RBC) [Ratio] 12.4 % 11.9-15.3 [facility] Estimated glomerular filtrat ion rate (GFR) non- AmericanOrdered By: Eladio Mayo on 09-11-2022 GFR/1.73 sq M.predicted among non-blacks MDRD (S/P/Bld) [Vol rate/Area] > 60 mL/Min [facility] Hematocrit Auto (Bld) [Volum e fraction]Ordered By: Eladio Mayo on 09-11-2022 Hematocrit (Bld) [Volume fraction] 39.4 % 34.0-46.4 [facility] Hemoglobin [Mass/volume] in BloodOrdered By: Eladio Mayo on 09-11-2022 Hemoglobin (Bld) [Mass/Vol] 13.0 g/dL 11.8-15.4 [facility] - Chemistry and C hemistry - challengeOrdered By: Eladio Mayo on 09-11-2022 Magnesium [Mass/Vol] 2.2 mg/dL 1.6-2.6 [facility] - Hematology and Cell countsOrdered By: Eladio Mayo on 09-11-2022 Nucleated RBC/100 WBC (Bld) [Ratio] 0.0 % 0-0.5 [facility] Leukocytes [#/volume] in Blo od by Automated countOrdered By: Eladio Mayo on 09-11-2022 WBC (Bld) [#/Vol] 13.2 10*3/uL 4.5-11.0 [facility] Lymphocytes Auto (Bld) [#/Vo l]Ordered By: Eladio Mayo on 09-11-2022 Lymphocytes (Bld) [#/Vol] 0.9 10*3/uL 1.00-4.8 [facility] Lymphocytes/100 WBC Auto (Bl d)Ordered By: Eladio Mayo on 09-11-2022 Lymphocytes/100 WBC (Bld) 6.9 % . [facility] MCH Auto (RBC) [Entitic mass ]Ordered By: Eladio Mayo on 09-11-2022 MCH (RBC) [Entitic mass] 30.5 pg 24.7-34.3 [facility] MCHC Auto (RBC) [Mass/Vol]Or dered By: Eladio Mayo on 09-11-2022 MCHC (RBC) [Mass/Vol] 33.0 g/dL 32.0-35.0 [facility] MCV Auto (RBC) [Entitic vol] Ordered By: Eladio Mayo on 09-11-2022 MCV (RBC) [Entitic vol] 92.4 fL 80-100 [facility] Monocytes Auto (Bld) [#/Vol] Ordered By: Eladio Mayo on 09-11-2022 Monocytes (Bld) [#/Vol] 0.9 10*3/uL 0.0-0.8 [facility] Monocytes/100 WBC Auto (Bld) Ordered By: Eladio Mayo on 09-11-2022 Monocytes/100 WBC (Bld) 6.4 % . [facility] Neutrophils Auto (Bld) [#/Vo l]Ordered By: Elaido Mayo on 09-11-2022 Neutrophils (Bld) [#/Vol] 11.4 10*3/uL 1.8-7.7 [facility] Neutrophils/100 WBC Auto (Bl d)Ordered By: Eladio Mayo on 09-11-2022 Neutrophils/100 WBC (Bld) 86.6 % . [facility] No Panel InformationOrdered By: Eladio Mayo on 09-11-2022 Estimated GFR () > 60 mL/Min [facility] Comment on above: GFR estimated refere nce range: According to KDOQI guidelines, <60 ml/min/1.73m2 is sufficient to diagnose a patient with chronic kidney disease. Pharmacy Creatinine Clearance (Chem 157.41 [facility] Platelet Estimate Normal Normal [facility] Platelet Morphology Comment Normal Normal [facility] Platelet mean volume Auto (B ld) [Entitic vol]Ordered By: Eladio Mayo on 09-11-2022 Platelet mean volume (Bld) [Entitic vol] 9.0 fL 6.3-10.7 [facility] Platelets Auto (Bld) [#/Vol] Ordered By: Eladio Mayo on 09-11-2022 Platelets (Bld) [#/Vol] 237 10*3/uL 150-450 [facility] RBC Auto (Bld) [#/Vol]Ordere d By: Eladio Mayo on 09-11-2022 RBC (Bld) [#/Vol] 4.27 10*6/uL 3.60-5.00 [facility] RBC morphologyOrdered By: Fr blaise Mayo on 09-11-2022 RBC morphology finding Nom (Bld) Normal [facility] Serum or plasma anion gap de terminationOrdered By: Eladio Mayo on 09-11-2022 Anion gap [Moles/Vol] 8.5 mmol/L 6.0-15.0 [facility] Serum or plasma calcium elias urement (mass/volume)Ordered By: Eladio Mayo on 09-11-2022 Calcium [Mass/Vol] 8.7 mg/dL 8.2-10.2 [facility] Serum or plasma chloride alisa surement (moles/volume)Ordered By: Eladio Mayo on 09-11-2022 Chloride [Moles/Vol] 106 mmol/L 95-114 [facility] Serum or plasma glucose elias urement (mass/volume)Ordered By: Eladio Mayo on 09-11-2022 Glucose [Mass/Vol] 167 mg/dL 70-100 [facility] Comment on above: ADA recommended refe rence rangeRandom Glucose Reference Range is dependent on time and content of last meal. Glucose of more than 200 mg/dL in a nonstressed, ambulatory subject supports the diagnosis of Diabetes Mellitus. Serum or plasma potassium me asurement (moles/volume)Ordered By: Eladio Mayo on 09-11-2022 Potassium [Moles/Vol] 3.9 mmol/L 3.5-5.1 [facility] Serum or plasma sodium measu rement (moles/volume)Ordered By: Eladio Mayo on 09-11-2022 Sodium [Moles/Vol] 135 mmol/L 136-146 [facility] Serum or plasma total carbon dioxide measurement (moles/volume)Ordered By: Eladio Mayo on 09-11-2022 CO2 [Moles/Vol] 24.4 mmol/L 22.0-30.0 [facility] Serum or plasma urea nitroge n measurement (mass/volume)Ordered By: Eladio Mayo on 09-11-2022 Urea nitrogen [Mass/Vol] 13 mg/dL 08-20 [facility] Activated partial thrombopla stin time (aPTT) in platelet poor plasma by coagulation aOrdered By: Gt Haro on 09-10-2022 aPTT Coag (PPP) [Time] 24.5 s 25.1-36.5 [facility] - CoagulationOrde red By: Gt Haro on 09-10-2022 PT Coag (PPP) [Time] 12.2 s 9.0-12.9 [facility] Platelet poor plasma interna tional normalized ratio (INR) by coagulation assay (relatOrdered By: Gt Haro on 09-10-2022 INR Coag (PPP) [Relative time] 1.1 {INR} [facility] Comment on above: INR Therapeutic Rang [...] with mechanical heart valves: 3 - 4.5 HCG ( test) IA.rapi d Ql (U)Ordered By: Jayson Smith on 09-09-2022 HCG ( test) Ql (U) Negative [facility] Coding Summaryon 11-05-2019 Coding Summary CODING DATE: 019 [facility] STATUS: Home PAYOR: Self Pay APC [...] Roy Revised Date Saved: 10/31/2019 08:13 am [facility] C Urineon 10-31-2019 C Urine No growth at 2 days. Normal [facility] Comment on above: Performed By: #### 1 [id number], [id number], 0757664, 17368162, 8947113, [id number] #### [facility] (DEFAULT) [address] [place] [address] Coding Summaryon 10-31-2019 Coding Summary CODING DATE: 019 [facility] STATUS: Home PAYOR: Self Pay ADMIT [...] Ankita Roy Date Saved: 10/31/2019 08:16 am [facility] .Auto Diff 1on 10-29-2019 Auto Pitt % 4 % Normal 12-09 [facility] Comment on above: Performed By: #### 1 [id number], [id number], 7391814, 66991388, 2581090, [id number] #### [facility] (DEFAULT) [address] [place] [address] 92908 Baso Abs# 0.0 x10 Normal 0.0-0.2 [facility] Comment on above: Performed By: #### 1 [id number], [id number], 8193163, 04010538, 1393254, [id number] #### [facility] (DEFAULT) [address] [place] [address] 92328 Basophils/100 WBC (Bld) 0.1 % Low 0.2-2.0 [facility] Comment on above: Performed By: #### 1 [id number], [id number], 9491201, 56349000, 4010576, [id number] #### [facility] (DEFAULT) [address] [place] [address] Eos Abs# 0.0 x10 Normal 0.0-0.4 [facility] Comment on above: Performed By: #### 1 [id number], 0216617102, 2374627, 28326399, 0286440, [id number] #### [facility] (DEFAULT) [address] [place] [address] Eosinophils/100 WBC (Bld) 0.4 % Low 0.9-4.0 [facility] Comment on above: Performed By: #### 1 [id number], 7992271201, 8940529, 91520426, 4880531, 7317207696 #### [facility] (DEFAULT) [address] [place] [address] Lymphocytes (Bld) [#/Vol] 1.5 x10 Normal 1.3-2.9 [facility] Comment on above: Performed By: #### 1 [id number], 5755703407, 5289618, 10333948, 8711335, 3731902433 #### [facility] (DEFAULT) [address] [place] [address] Lymphocytes/100 WBC (Bld) 19 % Normal 14-48 [facility] Comment on above: Performed By: #### 1 [id number], 5343998371, 6032073, 19987945, 9843976, 6564700788 #### [facility] (DEFAULT) [address] [place] [address] Pitt Abs# 0.3 x10 Normal 0.0-0.8 [facility] Comment on above: Performed By: #### 1 [id number], 5760259630, 9218455, 95660171, 7539454, 0159111137 #### [facility] (DEFAULT) [address] [place] [address] Neut Abs# 5.8 x10 Normal 1.5-9.2 [facility] Comment on above: Performed By: #### 1 [id number], 3424429632, 1075984, 07121082, 9180493, 7747819063 #### [facility] (DEFAULT) [address] [place] [address] Neutrophils/100 WBC (Bld) 76 % Normal 44-88 [facility] Comment on above: Performed By: #### 1 [id number], 8510847793, 1999613, 53523703, 8429773, 1324682427 #### [facility] (DEFAULT) [address] [place] [address] 13006 Auto Pitt % 5 % Normal 1-12 [facility] Comment on above: Performed By: #### 1 [id number], 2934235168, 4360697, 78168384, 2902256, 0246234874 #### [facility] (DEFAULT) [address] [place] [address] 51951 Baso Abs# 0.0 x10 Normal 0.0-0.2 [facility] Comment on above: Performed By: #### 1 [id number], 4499384431, 5026995, 28630274, 2642499, 5403805132 #### [facility] (DEFAULT) [address] [place] [address] 52684 Basophils/100 WBC (Bld) 0.2 % Normal 0.2-2.0 [facility] Comment on above: Performed By: #### 1 [id number], 4146780513, 0515680, 28225818, 7997439, 7146944675 #### [facility] (DEFAULT) [address] [place] [address] 56717 Eos Abs# 0.0 x10 Normal 0.0-0.4 [facility] Comment on above: Performed By: #### 1 [id number], 1912475050, 0159462, 60943698, 8799615, 0034664696 #### [facility] (DEFAULT) [address] [place] [address] 59022 Eosinophils/100 WBC (Bld) 0.3 % Low 0.9-4.0 [facility] Comment on above: Performed By: #### 1 [id number], 9395674728, 3908968, 05308731, 1215558, 4639209495 #### [facility] (DEFAULT) [address] [place] [address] 70670 Lymphocytes (Bld) [#/Vol] 1.2 x10 Low 1.3-2.9 [facility] Comment on above: Performed By: #### 1 [id number], 7819308585, 6126643, 30843418, 5196834, 2473437248 #### [facility] (DEFAULT) [address] [place] [address] 69477 Lymphocytes/100 WBC (Bld) 10 % Low 14-48 [facility] Comment on above: Performed By: #### 1 [id number], 7309730106, 9412805, 71438644, 4917385, 5041210433 #### [facility] (DEFAULT) [address] [place] [address] 66522 Pitt Abs# 0.6 x10 Normal 0.0-0.8 [facility] Comment on above: Performed By: #### 1 [id number], 6240714914, 8757230, 21530731, 1887804, 7061219941 #### [facility] (DEFAULT) [address] [place] [address] Neut Abs# 9.9 x10 High 1.5-9.2 [facility] Comment on above: Performed By: #### 1 [id number], 4623379784, 1294288, 73806497, 4855644, 4324122774 #### [facility] (DEFAULT) [address] [place] [address] 20608 Neutrophils/100 WBC (Bld) 84 % Normal 44-88 [facility] Comment on above: Performed By: #### 1 [id number], 0485756408, 9967233, 95991126, 7203176, 3311411796 #### [facility] (DEFAULT) [address] [place] [address] CBC w/ Auto Diffon 9 Erythrocyte distribution width (RBC) [Ratio] 12.5 % Normal 11.5-15.0 [facility] Comment on above: Performed By: #### 1 [id number], 9339856571, 3880203, 65276033, 5775854, 4804271420 #### [facility] (DEFAULT) [address] [place] [address] Hematocrit (Bld) [Volume fraction] 35.3 % Normal 33.7-40.4 [facility] Comment on above: Performed By: #### 1 [id number], 1322636907, 7825922, 70029823, 1215311, 0366226257 #### [facility] (DEFAULT) [address] [place] [address] Hemoglobin (Bld) [Mass/Vol] 11.5 g/dL Normal 11.3-15.9 [facility] Comment on above: Performed By: #### 1 [id number], 5788692620, 4167708, 18019744, 7490861, 3386283336 #### [facility] (DEFAULT) [address] [place] [address] Man Diff? Auto Normal [facility] Comment on above: Performed By: #### 1 [id number], 2244343108, 1225976, 61049870, 3102065, 9528142085 #### [facility] (DEFAULT) [address] [place] [address] MCH (RBC) [Entitic mass] 31 pg Normal 24-34 [facility] Comment on above: Performed By: #### 1 [id number], 4261405477, 1964690, 03866300, 1232837, 5533947154 #### [facility] (DEFAULT) [address] [place] [address] 68316 MCHC (RBC) [Mass/Vol] 33 g/dL Normal 26-37 [facility] Comment on above: Performed By: #### 1 [id number], 0000546527, 9020814, 05827953, 7042492, 7028366350 #### [facility] (DEFAULT) [address] [place] [address] MCV (RBC) [Entitic vol] 95 fL Normal 81-100 [facility] Comment on above: Performed By: #### 1 [id number], 7612967609, 2288284, 54775449, 8573216, 4104343638 #### [facility] (DEFAULT) [address] [place] [address] Platelet mean volume (Bld) [Entitic vol] 10.5 fL High 6.3-10.2 [facility] Comment on above: Performed By: #### 1 [id number], 1019816786, 7693919, 79032899, 8847782, 2043251579 #### [facility] (DEFAULT) [address] [place] [address] Platelets (Bld) [#/Vol] 209 x10 Normal 138-427 [facility] Comment on above: Performed By: #### 1 [id number], 4067676944, 5748318, 75770642, 9435388, 5609663582 #### [facility] (DEFAULT) [address] [place] [address] RBC (Bld) [#/Vol] 3.72 x10 Normal 3.70-5.30 [facility] Comment on above: Performed By: #### 1 [id number], 3449430766, 2147809, 96361817, 4365296, 3559518013 #### [facility] (DEFAULT) [address] [place] [address] WBC (Bld) [#/Vol] 7.6 x10 [facility] Comment on above: Performed By: #### 1 [id number], 3869070306, 4240574, 65450182, 2979842, 7528116305 #### [facility] (DEFAULT) [address] [place] [address] Erythrocyte distribution width (RBC) [Ratio] 12.4 % Normal 11.5-15.0 [facility] Comment on above: Performed By: #### 1 [id number], 1549115945, 7976720, 75787920, 3662661, 3080009675 #### [facility] (DEFAULT) [address] [place] [address] Hematocrit (Bld) [Volume fraction] 38.9 % Normal 33.7-40.4 [facility] Comment on above: Performed By: #### 1 [id number], 0498182628, 7782384, 23509164, 4509811, 0734006817 #### [facility] (DEFAULT) [address] [place] [address] Hemoglobin (Bld) [Mass/Vol] 12.9 g/dL Normal 11.3-15.9 [facility] Comment on above: Performed By: #### 1 [id number], 5928707287, 7886731, 27179318, 1619675, 0524261684 #### [facility] (DEFAULT) [address] [place] [address] Man Diff? Auto Normal [facility] Comment on above: Performed By: #### 1 [id number], 5436956296, 3950834, 59766998, 8124895, 2554075819 #### [facility] (DEFAULT) [address] [place] [address] MCH (RBC) [Entitic mass] 31 pg Normal 24-34 [facility] Comment on above: Performed By: #### 1 [id number], 7813309416, 4460021, 77182107, 4828298, 8023820143 #### [facility] (DEFAULT) [address] [place] [address] MCHC (RBC) [Mass/Vol] 33 g/dL Normal 26-37 [facility] Comment on above: Performed By: #### 1 [id number], 9786347944, 8618095, 38269374, 4130041, 0836571566 #### [facility] (DEFAULT) [address] [place] [address] MCV (RBC) [Entitic vol] 93 fL Normal 81-100 [facility] Comment on above: Performed By: #### 1 469112453, 5647150124, 5434584, 17004835, 6012722, 2683121406 #### [facility] (DEFAULT) [address] [place] [address] Platelet mean volume (Bld) [Entitic vol] 10.5 fL High 6.3-10.2 [facility] Comment on above: Performed By: #### 1 [id number], 2430246168, 0745584, 08955735, 9827191, 1563897670 #### [facility] (DEFAULT) [address] [place] [address] 20634 Platelets (Bld) [#/Vol] 208 x10 Normal 138-427 [facility] Comment on above: Performed By: #### 1 [id number], 9066616652, 7957017, 06006831, 6795713, 4968771037 #### [facility] (DEFAULT) [address] [place] [address] RBC (Bld) [#/Vol] 4.19 x10 Normal 3.70-5.30 [facility] Comment on above: Performed By: #### 1 [id number], 8168128007, 8876747, 92360025, 8550944, 2695363277 #### [facility] (DEFAULT) [address] [place] [address] WBC (Bld) [#/Vol] 11.7 x10 [facility] Comment on above: Performed By: #### 1 [id number], 3695521644, 5315625, 10978665, 3964481, 0911206361 #### [facility] (DEFAULT) [address] [place] [address] Standardon 10-29-2019 eGFR Non AA >60 [facility] Comment on above: Performed By: #### 1 [id number], 8980265476, 0332757, 16456766, 1012804, 9868284832 #### [facility] (DEFAULT) [address] [place] [address] eGFR AA >60 [facility] Comment on above: Result Comment: Shop Supervisor elizabeth Kidney disease could be indicated at eGFRs of less than 60 ml/min/1.73m2. Kidney Failure is indicated at less than 15 ml/min/1.73m2 Performed By: #### 1 [id number], 8251421438, 0217746, 82901840, 0469018, 7572300035 #### [facility] (DEFAULT) [address] [place] [address] 51640 Albumin [Mass/Vol] 4.3 g/dL Normal 3.5-5.0 [facility] Comment on above: Performed By: #### 1 [id number], 8764755744, 5288707, 01892756, 7746763, 8922618268 #### [facility] (DEFAULT) [address] [place] [address] Albumin/Globulin [Mass ratio] 1.4 {ratio} Normal 1.4-2.6 [facility] Comment on above: Performed By: #### 1 [id number], 9677572153, 9269782, 60048437, 1675265, 6717099390 #### [facility] (DEFAULT) [address] [place] [address] 13110 Alk Phos 30 IU/L Low 32-91 [facility] Comment on above: Performed By: #### 1 [id number], 3477787559, 7375774, 61040333, 2810111, 0562824859 #### [facility] (DEFAULT) [address] [place] [address] 66903 ALT/SGPT 12.0 IU/L Low 14.0-54.0 [facility] Comment on above: Performed By: #### 1 [id number], 7842346886, 3487524, 82311882, 3453980, 6729928048 #### [facility] (DEFAULT) [address] [place] [address] 88706 Anion gap [Moles/Vol] 14.0 mmol/L Normal 5.0-19.0 [facility] Comment on above: Performed By: #### 1 [id number], 3045458749, 9323403, 39264038, 0571414, 3486598192 #### [facility] (DEFAULT) [address] [place] [address] 47100 AST/SGOT 15 IU/L Normal 15-41 [facility] Comment on above: Performed By: #### 1 [id number], 1999487467, 9819761, 21191007, 8286392, 4243061527 #### [facility] (DEFAULT) [address] [place] [address] 99233 Bili Total 0.8 mg/dL Normal 0.3-1.2 [facility] Comment on above: Performed By: #### 1 [id number], 8747072861, 3480318, 47590387, 0109003, 3778030442 #### [facility] (DEFAULT) [address] [place] [address] 97551 Calcium [Mass/Vol] 9.2 mg/dL Normal 8.9-10.3 [facility] Comment on above: Performed By: #### 1 [id number], 4365160470, 4685268, 77048009, 3638514, 5879655289 #### [facility] (DEFAULT) [address] [place] [address] 51249 Chloride [Moles/Vol] 108 mmol/L Normal 101-111 [facility] Comment on above: Performed By: #### 1 [id number], 9526851196, 9380875, 06045062, 6681329, 0627311973 #### [facility] (DEFAULT) [address] [place] [address] 97903 CO2 [Moles/Vol] 21 mmol/L Normal 21-32 [facility] Comment on above: Performed By: #### 1 [id number], 0578353340, 6505757, 46839610, 8545140, 1677882715 #### [facility] (DEFAULT) [address] [place] [address] 61542 Creatinine [Mass/Vol] 0.65 mg/dL Normal 0.60-1.30 [facility] Comment on above: Performed By: #### 1 [id number], 4157671279, 1052064, 05920852, 1498919, 8807986826 #### [facility] (DEFAULT) [address] [place] [address] 10062 Globulin (S) [Mass/Vol] 3.1 g/dL Normal 1.5-4.3 [facility] Comment on above: Performed By: #### 1 [id number], 5705512175, 8477173, 01100774, 3246830, 4883953552 #### [facility] (DEFAULT) [address] [place] [address] 04012 Glucose [Mass/Vol] 119.0 mg/dL High 74.0-118.0 [facility] Comment on above: Performed By: #### 1 [id number], 5339515255, 1813149, 63251628, 9591824, 1649218393 #### [facility] (DEFAULT) [address] [place] [address] 65605 Osmolality [Osmolality] 278 mOsm/L [facility] Comment on above: Performed By: #### 1 [id number], 4235274068, 0835658, 01585288, 8270700, 7156326204 #### [facility] (DEFAULT) [address] [place] [address] 97029 Potassium [Moles/Vol] 3.7 mmol/L Normal 3.6-5.1 [facility] Comment on above: Performed By: #### 1 [id number], 3679467809, 0258914, 97537753, 3420958, 4134825349 #### [facility] (DEFAULT) [address] [place] [address] 74096 Protein [Mass/Vol] 7.4 g/dL Normal 6.5-8.1 [facility] Comment on above: Performed By: #### 1 [id number], 3066472596, 7548539, 46766316, 5064962, 6026857171 #### [facility] (DEFAULT) [address] [place] [address] 38766 Sodium [Moles/Vol] 139.0 mmol/L Normal 136.0-144.0 [facility] Comment on above: Performed By: #### 1 [id number], [id number], [id number], [id number], [id number], [id number] #### [facility] (DEFAULT) [address] [place] [address] 32685 Urea nitrogen [Mass/Vol] 11 mg/dL Normal 8- [facility] Comment on above: Performed By: #### 1 [id number], [id number], [id number], [id number], [id number], [id number] #### [facility] (DEFAULT) [address] [place] [address] Urea nitrogen/Creatinine [Mass ratio] 17.0 mg/mg High 4.6-16.2 [facility] Comment on above: Performed By: #### 1 [id number], [id number], [id number], [id number], [id number], [id number] #### [facility] (DEFAULT) [address] [place] [address] CT Abdomen/Pelvis w/o Contra ston 10-29-2019 CT [...] Suzanne L 10/29/19 0:46 am Technologist: M[facility] ED Clinical Summaryon 2018 ED Clinical Summary [facility] - Emergency Department [address] [place], [place] [id number] ED Clinical Summary PERSON INFORMATION Name: LYNNE LAWS Age: 34 Years Sex: FEMALE : 1985 MRN: Acct#: Visit Reason: Nausea; Vomiting; ABD PAIN Arrival: 10/28/2019 23:15:38 Discharge: LOS: 000 02:51 Check In: 10/28/2019 23:15:38 Checkout:10/29/2019 02:06:01 Address: [address] [place] [id number] PCP: Provider, None PROVIDER INFORMATION Provider Role Assigned Unassigned Louisa Morrison RN ED Nurse 10/28/2019 23:17:15 Syd Davis DO [...] Patient/family/caregiver verbalizes understanding of instructions given Comment: [facility] ED Note - Physicianon 2018 ED [...] and Plan Diagnosis Abdominal pain in female (VSQ91-LN R10.9, Discharge, Medical) Calls-Consults - Radiology: Called, [...] DO [Electronically Signed on: 10/29/2019 06:13 EST] Omley, Syd H DO [Verified on: 10/29/2019 02:40 EST] Omley, Syd H DO [facility] ED Patient Education Noteon 10-29-2019 ED Patient Education Note Education Materials [facility] ED Patient Summaryon 019 ED Patient Summary [facility] - Emergency Department [address] [place] [address] PATIENT DISCHARGE INSTRUCTIONS Patient Information Name: LYNNE LAWS Age: 34 Years Date of : 1985 Reason For Visit: Nausea; Vomiting; ABD PAIN Arrival Time: 10/28/2019 23:15:38 Primary Care Physician: Provider, None Attending Physician: Lizbeth Trejo MD Comment: Visit Diagnosis: Diagnoses This Visit Abdominal pain in female (R10.9) Nausea ([id number]) Vomiting ([id number]) Prescription Information: If you have been given a prescription for narcotics, seek immediate medical attention if you have any difficulty breathing or any sudden status changes such as confusion and sleepiness. If you or anyone you know is experiencing suicidal thoughts, mental health, alcohol and/or drug addiction problems; contact the [facility] [place] 20/06 Crisis Hotline -Text 4HVJZ ms 927865. If you received any narcotics, sedation, or [...] and treatment you received today in the [facility] Emergency Department were for an urgent problem and are not intended as complete care. It is important for you to follow up with a doctor, nurse practitioner, or physician?s assistant teacher for ongoing care. If your symptoms become [...] so we can reach you if necessary. [facility] Emergency Department has provided you with a complete list of medications post discharge. Please inform your water plant operator/provider of your visit and for further instruction [...] for Disease Control and Prevention July 2014 [facility] Education Noteon 10-29-2019 Education Note Education [...] Follow these instructions at home: ? Take macs-dzm-fbzbaye and prescription medicines only as told by [...] 08/24/2006 Document Revised: 06/03/2017 Document Reviewed: 04/27/2017 [employer] Interactive Patient Education ? 2019 [employer] Normal [facility] Extra Greenon 10-29-2019 Tube Collected Yes [facility] Comment on above: Performed By: #### 1 [id number], [id number], 7671390, 31811060, 5935402, [id number] #### [facility] (DEFAULT) [address] [place] [address] 20634 Extra Redon 10-29-2019 Tube Collected Yes [facility] Comment on above: Performed By: #### 1 [id number], [id number], 9825845, 96251811, 2825555, [id number] #### [facility] (DEFAULT) [address] [place] [address]881 Inpatient Patient Summaryon 10-29-2019 Inpatient Patient Summary [address] [address] Patient Discharge Instructions Name: LYNNE LAWS : 1985 Patient Address: [address] [place] [address] Primary Care Provider: Name: Provider, Dennise Phone: After you are discharged if you find you have any questions, please, call [phone] ext [phone] to speak to a nurse. Discharge Diagnosis: Abdominal pain in female Prescription Information: If you have been given a prescription for narcotics, seek immediate medical attention if you have any difficulty breathing or any sudden status changes such as confusion and sleepiness. If you or anyone you know is experiencing suicidal thoughts, mental health, alcohol and/or drug addiction problems; contact the [facility] 20/06 Crisis Hotline -Text 4HOPE to 224447. If you received any narcotics, sedation, or [...] business decisions or sign any legal documents [facility] would like to thank you [...] changes are reflected below: New Medications [facility]/pharmacy #[id number], [address], [place] [id number], [phone] ondansetron (Zofran ODT 4 mg oral tablet, [...] Follow these instructions at home: ? Take cnft-pwy-wkspudl and prescription medicines only as told by [...] 08/24/2006 Document Revised: 06/03/2017 Document Reviewed: 04/27/2017 [employer] Interactive Patient Education ? 2019 weendy. Viruses or Bacteria What?s got you sick? [...] Disease Control and Prevention July 2014 Normal [facility] Lipaseon 10-29-2019 Lipase Level 32.0 IU/L Normal 22.0-51.0 [facility] Comment on above: Performed By: #### 1 [id number], [id number], 9916531, 34222559, 0361516, [id number] #### [facility] (DEFAULT) [address] [place] [address] Nutrition Noteon 10-29-2019 Nutrition Note Pt admitted [...] minimum 2L/d. Will continue to monitor closely. [facility] Pharmacy Noteon 10-29-2019 Pharmacy Note I [...] on: 10/29/2019 11:46 EST] Korina PharmD, Idania [facility] Test Urine 1on U Preg Negative [facility] Comment on above: Performed By: #### 1 [id number], [id number], 8811532, 13305564, 7029021, [id number] #### [facility] (DEFAULT) [address] [place] [address] U Preg Internal Control Pass [facility] Comment on above: Performed By: #### 1 [id number], [id number], 7985602, 69651650, 8794008, [id number] #### [facility] (DEFAULT) [address] [place] [address]72 Progress Note - Nurseon INR Coag (Bld) [Relative time] Pt states abd pain in RLQ that feels better when pushed upon. Abd tenderness in upper midline that feels worse when palpated. Associated nausea being managed with zofran. No other issues or concerns at this time. [Electronically Signed on: 10/29/2019 11:12 EST] Jan Wylie RN [Verified on: 10/29/2019 11:12 EST] Jan Wylie RN [facility] Progress Note - Nurse Pt arrives [...] on: 10/28/2019 23:27 EST] Louisa Morrison RN [facility] Triage Panel 12on 10-29-2019 Triage Internal Control Pass [facility] Comment on above: Performed By: #### 1 [id number], [id number], 1626170, 14377527, 1183851, [id number] #### [facility] (DEFAULT) [address] [place] [address] 93072 U Amph Scr Negative [facility] Comment on above: Performed By: #### 1 [id number], [id number], 8149104, 74714756, 0070033, [id number] #### [facility] (DEFAULT) [address] [place] [address] 18204 U Edel Scr Negative [facility] Comment on above: Performed By: #### 1 [id number], 7500389400, 7824721, 38469009, 5444875, [id number] #### [facility] (DEFAULT) [address] [place] [address] 69567 U Benzodia Scr Negative [facility] Comment on above: Performed By: #### 1 [id number], 4633342485, 3407846, 48656053, 0641797, [id number] #### [facility] (DEFAULT) [address] [place] [address] 71706 U Cannab Scrn Negative [facility] Comment on above: Performed By: #### 1 [id number], 6488244899, 4719153, 75514103, 0541357, 7803859888 #### [facility] (DEFAULT) [address] [place] [address] 27317 U Cocaine Scr Negative [facility] Comment on above: Performed By: #### 1 [id number], 5948915960, 2671253, 97404717, 7486845, 8241701452 #### [facility] (DEFAULT) [address] [place] [address] 46211 U Methadone Scr Negative [facility] Comment on above: Performed By: #### 1 [id number], 7681444203, 6163371, 79318850, 1080455, 0045846231 #### [facility] (DEFAULT) [address] [place] [address] 48181 U Methamp Scrn Negative [facility] Comment on above: Performed By: #### 1 [id number], 1076399819, 4221360, 91369019, 1732345, 7928709190 #### [facility] (DEFAULT) [address] [place] [address] U Opiate Scr Negative [facility] Comment on above: Performed By: #### 1 [id number], 2139985167, 5487740, 73271300, 7707642, 4458148987 #### [facility] (DEFAULT) [address] [place] [address] U Oxycod Scr Negative [facility] Comment on above: Performed By: #### 1 [id number], 2963659430, 1753813, 99916507, 0722089, 4251906304 #### [facility] (DEFAULT) [address] [place] [address] U Phencyclidine Scr Negative [facility] Comment on above: Performed By: #### 1 [id number], 8194660944, 0544624, 45157769, 9104854, 1447798353 #### [facility] (DEFAULT) [address] [place] [address] U Propoxyphene Scr Negative Normal [facility] Comment on above: Performed By: #### 1 [id number], 7836734702, 8641999, 83594612, 6904938, 3158725817 #### [facility] (DEFAULT) [address] [place] [address] 52840 U Tricyclic Antidepress Scr Negative [facility] Comment on above: Performed By: #### 1 [id number], 5095918388, 8417766, 14966578, 7704181, 8031889027 #### [facility] (DEFAULT) [address] [place] [address] Urine Source Clean Catch Normal [facility] Comment on above: Performed By: #### 1 [id number], 7203899315, 2800729, 06549013, 4934589, 3043946469 #### [facility] (DEFAULT) [address] [place] [address] UA Dqssn2yj 10-29-2019 RBC (U) [#/Vol] None Seen [facility] Comment on above: Order Comment: Urina lysis Microscopic order added on by [employer] Expert Rules system. Performed By: #### 1 [id number], 0219899974, 5304710, 30153960, 8113785, 4514524535 #### [facility] (DEFAULT) [address] [place] [address] UA Bacteria None [facility] Comment on above: Order Comment: Urina lysis Microscopic order added on by [employer] Rules system. Performed By: #### 1 [id number], 1649312233, 7911323, 76873258, 0234960, 9584058071 #### [facility] (DEFAULT) [address] [place] [address] UA Hyal Cast 0-5 [facility] Comment on above: Order Comment: Urina lysis Microscopic order added on by [employer] Rules system. Performed By: #### 1 [id number], 8519296215, 9609575, 08289383, 5066418, 9321025078 #### [facility] (DEFAULT) [address] [place] [address] 39329 UA Squam Epi Rare [facility] Comment on above: Order Comment: Urina lysis Microscopic order added on by [employer] Rules system. Performed By: #### 1 [id number], 1069095347, 1875945, 11564311, 8027255, 5225813019 #### [facility] (DEFAULT) [address] [place] [address] UA WBC None Seen [facility] Comment on above: Order Comment: Urina lysis Microscopic order added on by [employer] Rules system. Performed By: #### 1 [id number], 7000361138, 2391115, 79425185, 1092143, 0521809767 #### [facility] (DEFAULT) [address] [place] [address] 21585 UA w Culture if Ind Standard on 10-29-2019 Color (U) Yellow [facility] Comment on above: Performed By: #### 1 [id number], 5097173796, 4556023, 83128613, 5286402, 1820074929 #### [facility] (DEFAULT) [address] [place] [address] 30538 Culture? Not Indicated [facility] Comment on above: Performed By: #### 1 [id number], 9682006910, 0351265, 28942965, 7790691, 7529125200 #### [facility] (DEFAULT) [address] [place] [address] Glucose (U) [Mass/Vol] Negative Normal [facility] Comment on above: Performed By: #### 1 [id number], 4100105750, 9065213, 32472738, 7160293, 6718242565 #### [facility] (DEFAULT) [address] [place] [address] 01970 Ketones Ql (U) Negative Normal [facility] Comment on above: Performed By: #### 1 [id number], 2438621024, 7949443, 19769102, 2038663, 4402156475 #### [facility] (DEFAULT) [address] [place] [address] 86895 Micro? Indicated [facility] Comment on above: Performed By: #### 1 [id number], 9900965388, 8915198, 55678724, 3837171, 0016791498 #### [facility] (DEFAULT) [address] [place] [address] 95180 UA Bilirubin Negative Normal [facility] Comment on above: Performed By: #### 1 439607718, 4228909228, 0937140, 57046246, 7195380, 9829935417 #### [facility] (DEFAULT) [address] [place] [address] 89304 UA Blood Negative Normal NEGATIVE [facility] Comment on above: Performed By: #### 1 [id number], 6125524838, 8869302, 44340151, 1235738, 0227800987 #### [facility] (DEFAULT) [address] [place] [address] 33187 UA Clarity CLEAR Normal CLEAR [facility] Comment on above: Performed By: #### 1 [id number], 3072568266, 6742292, 05208034, 8562777, 3165803016 #### [facility] (DEFAULT) [address] [place] [address] 83693 UA Leuk Est Negative Normal NEGATIVE [facility] Comment on above: Performed By: #### 1 [id number], 3882834970, 2782629, 47600920, 5191998, 2259768231 #### [facility] (DEFAULT) [address] [place] [address] UA Nitrite Negative Normal NEGATIVE [facility] Comment on above: Performed By: #### 1 [id number], 8444361999, 2874651, 89837228, 9392913, 6556661005 #### [facility] (DEFAULT) [address] [place] [address] UA pH 5.5 Normal 5-8 [facility] Comment on above: Performed By: #### 1 [id number], 4535717451, 7003971, 68887173, 1587367, 9840981649 #### [facility] (DEFAULT) [address] [place] [address] UA Protein TRACE Abnormal NEGATIVE [facility] Comment on above: Performed By: #### 1 [id number], 3791986440, 0248088, 01064907, 4769880, 7797469591 #### [facility] (DEFAULT) [address] [place] [address] UA Spec Grav 1.015 Normal 1.001-1.035 [facility] Comment on above: Performed By: #### 1 386610235, 4129468477, 8750766, 11885506, 2855600, 5597684023 #### [facility] (DEFAULT) [address] [place] [address] UA Urobilinogen 0.2 mg/dL Normal 0.2-1.0 [facility] Comment on above: Performed By: #### 1 [id number], 9649059120, 8889187, 85670490, 1596791, 2726182256 #### [facility] (DEFAULT) [address] [place] [address] Urine Source Clean Catch [facility] Comment on above: Performed By: #### 1 [id number], 3794086345, 2216219, 31181515, 1184587, 5185976545 #### [facility] (DEFAULT) [address] [place] [address] Breakpoint UA [facility] Comment on above: Performed By: #### 1 [id number], 9407488259, 9018684, 74568867, 4876396, 4711877090 #### [facility] (DEFAULT) [address] [place] [address] US Gallbladderon 10-29-2019 US Gallbladder Ultrasound gallbladd [...] Signature): Isabell Damon 10/29/19 8:07 am Technologist: [facility] Coding Summaryon 10-24-2019 Coding Summary CODING DATE: 019 [facility] STATUS: PAYOR: Self Pay ADMIT DX: [...] Jacquie Roman Date Saved: 10/24/2019 05:06 pm [facility] Coding Summary CODING DATE: 019 [facility] STATUS: Home PAYOR: Self Pay APC [...] Jacquie Roman Date Saved: 10/24/2019 05:04 pm [facility] .Auto Diff 1on 10-23-2019 Auto Pitt % 6 % Normal -12 [facility] Comment on above: Performed By: #### 1 [id number], 4557835573, 3584672, 79828730, 8206852, 6861438792 #### [facility] (DEFAULT) [address] [place] [address] 55848 Baso Abs# 0.0 x10 Normal 0.0-0.2 [facility] Comment on above: Performed By: #### 1 444239406, 1488996656, 1889148, 10830082, 9538308, 0287186839 #### [facility] (DEFAULT) [address] [place] [address] 62292 Basophils/100 WBC (Bld) 0.2 % Normal 0.2-2.0 [facility] Comment on above: Performed By: #### 1 [id number], 3165563437, 0014709, 77602990, 3002326, 1005763211 #### [facility] (DEFAULT) [address] [place] [address] 91126 Eos Abs# 0.1 x10 Normal 0.0-0.4 [facility] Comment on above: Performed By: #### 1 746232646, 6261890631, 0051910, 30247342, 1377069, 0099469457 #### [facility] (DEFAULT) [address] [place] [address] Eosinophils/100 WBC (Bld) 1.8 % Normal 0.9-4.0 [facility] Comment on above: Performed By: #### 1 [id number], 3354460483, 1096777, 28697917, 0123238, 9082799521 #### [facility] (DEFAULT) [address] [place] [address] Lymphocytes (Bld) [#/Vol] 2.0 x10 Normal 1.3-2.9 [facility] Comment on above: Performed By: #### 1 144100963, 2101871873, 6635834, 83163336, 8708714, 8759836137 #### [facility] (DEFAULT) [address] [place] [address] Lymphocytes/100 WBC (Bld) 30 % Normal 14-48 [facility] Comment on above: Performed By: #### 1 126545958, 6674960733, 4085634, 23925485, 6219067, 6737147118 #### [facility] (DEFAULT) [address] [place] [address] Pitt Abs# 0.4 x10 Normal 0.0-0.8 [facility] Comment on above: Performed By: #### 1 711316551, 4489004680, 8935401, 29410783, 0021433, 0754263260 #### [facility] (DEFAULT) [address] [place] [address] Neut Abs# 4.0 x10 Normal 1.5-9.2 [facility] Comment on above: Performed By: #### 1 252990552, 2013001207, 3240177, 68429774, 7183264, 4297299484 #### [facility] (DEFAULT) [address] [place] [address] 55975 Neutrophils/100 WBC (Bld) 62 % Normal 44-88 [facility] Comment on above: Performed By: #### 1 204349725, 9443145767, 2855908, 28545196, 3888294, 8252165075 #### [facility] (DEFAULT) [address] [place] [address] CBC w/ Auto Diffon Erythrocyte distribution width (RBC) [Ratio] 12.6 % Normal 11.5-15.0 [facility] Comment on above: Performed By: #### 1 [id number], 7874625, 01217312, 8569074, 6254430840 ####[facility] (DEFAULT)[address] [place] [address] Hematocrit (Bld) [Volume fraction] 38.0 % Normal 33.7-40.4 [facility] Comment on above: Performed By: #### 1 462410420, 3797903, 27881117, 3258373, 9632237361 ####[facility] (DEFAULT)[address] [place] [address] Hemoglobin (Bld) [Mass/Vol] 12.7 g/dL Normal 11.3-15.9 [facility] Comment on above: Performed By: #### 1 074390467, 4369135, 70332170, 8007577, 0534090247 ####[facility] (DEFAULT)[address] [place] [address] Man Diff? Auto Normal [facility] Comment on above: Performed By: #### 1 631194686, 5790564, 01772463, 6924406, 7952822702 ####[facility] (DEFAULT)[address] [place] [address] 44577 MCH (RBC) [Entitic mass] 31 pg Normal 24-34 [facility] Comment on above: Performed By: #### 1 499139452, 6993684, 59996724, 3586523, 6721921232 ####[facility] (DEFAULT)[address] [place] [address] MCHC (RBC) [Mass/Vol] 33 g/dL Normal 26-37 [facility] Comment on above: Performed By: #### 1 003320478, 5157164, 45168396, 0475963, 6316334990 ####[facility] (DEFAULT)[address] [place] [address] MCV (RBC) [Entitic vol] 93 fL Normal 81-100 [facility] Comment on above: Performed By: #### 1 581232989, 1921774, 05684603, 2799849, 1039341085 ####[facility] (DEFAULT)[address] [place] [address] Platelet mean volume (Bld) [Entitic vol] 10.2 fL Normal 6.3-10.2 [facility] Comment on above: Performed By: #### 1 480286179, 7691137, 72657292, 8184457, 9475498231 ####[facility] (DEFAULT)[address] [place] [address] Platelets (Bld) [#/Vol] 231 x10 Normal 138-427 [facility] Comment on above: Performed By: #### 1 609403748, 9030027, 02260421, 3914343, 5265822608 ####[facility] (DEFAULT)[address] [place] [address] RBC (Bld) [#/Vol] 4.10 x10 Normal 3.70-5.30 [facility] Comment on above: Performed By: #### 1 947507861, 0237117, 24411065, 7775990, 5405727455 ####[facility] (DEFAULT)[address] [place] [address] WBC (Bld) [#/Vol] 6.5 x10 [facility] Comment on above: Performed By: #### 1 307274956, 9669787, 47812334, 2880379, 4852293256 ####[facility] (DEFAULT)[address] [place] [address] CMP Standardon 10-23-2019 eGFR Non AA >60 [facility] Comment on above: Performed By: #### 1 374523032, 4577625467, 8011213, 19683742, 1595286, 3700894386 #### [facility] (DEFAULT) [address] [place] [address] 45641 eGFR AA >60 [facility] Comment on above: Result Comment: Shop Supervisor elizabeth Kidney disease could be indicated at eGFRs of less than 60 ml/min/1.73m2. Kidney Failure is indicated at less than 15 ml/min/1.73m2 Performed By: #### 1 215591577, 2245282659, 8387776, 07520494, 1579211, 9998357100 #### [facility] (DEFAULT) [address] [place] [address] 10759 Albumin [Mass/Vol] 4.4 g/dL Normal 3.5-5.0 [facility] Comment on above: Performed By: #### 1 355480947, 6679268560, 2533844, 85576906, 6296098, 6675822824 #### [facility] (DEFAULT) [address] [place] [address] 78186 Albumin/Globulin [Mass ratio] 1.4 {ratio} Normal 1.4-2.6 [facility] Comment on above: Performed By: #### 1 924661415, 3468800923, 4107760, 76109081, 5126656, 3163910369 #### [facility] (DEFAULT) [address] [place] [address] 70425 Alk Phos 34 IU/L Normal 32-91 [facility] Comment on above: Performed By: #### 1 151495696, 2150626141, 2105255, 84033842, 7582944, 2472730042 #### [facility] (DEFAULT) [address] [place] [address] 25098 ALT/SGPT 12.0 IU/L Low 14.0-54.0 [facility] Comment on above: Performed By: #### 1 266072485, 0248731083, 8092957, 12314659, 2760182, 7750731618 #### [facility] (DEFAULT) [address] [place] [address] 89739 Anion gap [Moles/Vol] 16.0 mmol/L Normal 5.0-19.0 [facility] Comment on above: Performed By: #### 1 [id number], 8807898231, 7062066, 56163131, 7957135, 2397839918 #### [facility] (DEFAULT) [address] [place] [address] 80024 AST/SGOT 15 IU/L Normal 15-41 [facility] Comment on above: Performed By: #### 1 [id number], 2668221177, 3724278, 68523130, 9029159, 1558525966 #### [facility] (DEFAULT) [address] [place] [address] 04806 Bili Total 0.3 mg/dL Normal 0.3-1.2 [facility] Comment on above: Performed By: #### 1 452142133, 2150150231, 1605841, 03617051, [id number], [id number] #### [facility] (DEFAULT) [address] [place] [address] 13135 Calcium [Mass/Vol] 9.3 mg/dL Normal 8.9-10.3 [facility] Comment on above: Performed By: #### 1 [id number], [id number], 8999546, 69876570, 0116061, 4858646496 #### [facility] (DEFAULT) [address] [place] [address] 27580 Chloride [Moles/Vol] 107 mmol/L Normal 101-111 [facility] Comment on above: Performed By: #### 1 [id number], [id number], 4757821, 07248358, 8191328, 5556024497 #### [facility] (DEFAULT) [address] [place] [address] 43247 CO2 [Moles/Vol] 23 mmol/L Normal 21-32 [facility] Comment on above: Performed By: #### 1 [id number], 1862810330, 8193777, 39282129, 0883915, 7471902371 #### [facility] (DEFAULT) [address] [place] [address] 30339 Creatinine [Mass/Vol] 0.62 mg/dL Normal 0.60-1.30 [facility] Comment on above: Performed By: #### 1 [id number], 1843478957, 1303725, 97923121, 5516419, 5976298799 #### [facility] (DEFAULT) [address] [place] [address] 39462 Globulin (S) [Mass/Vol] 3.1 g/dL Normal 1.5-4.3 [facility] Comment on above: Performed By: #### 1 [id number], 7743340227, 7853422, 35974047, 9715807, 0744021216 #### [facility] (DEFAULT) [address] [place] [address] 39806 Glucose [Mass/Vol] 101.0 mg/dL Normal 74.0-118.0 [facility] Comment on above: Performed By: #### 1 [id number], 7450780916, 0472202, 97907730, 4553900, 4089307848 #### [facility] (DEFAULT) [address] [place] [address] 57272 Osmolality [Osmolality] 283 mOsm/L [facility] Comment on above: Performed By: #### 1 [id number], 9419031147, 4896012, 34190077, 5260111, 8313433426 #### [facility] (DEFAULT) [address] [place] [address] 46702 Potassium [Moles/Vol] 3.5 mmol/L Low 3.6-5.1 [facility] Comment on above: Performed By: #### 1 [id number], 7111920035, 6180835, 44133168, 9550725, 0413087520 #### [facility] (DEFAULT) [address] [place] [address] 79367 Protein [Mass/Vol] 7.5 g/dL Normal 6.5-8.1 [facility] Comment on above: Performed By: #### 1 [id number], 6755767218, 5432572, 51486415, 7314865, 1625892557 #### [facility] (DEFAULT) [address] [place] [address] 89470 Sodium [Moles/Vol] 142.0 mmol/L Normal 136.0-144.0 [facility] Comment on above: Performed By: #### 1 [id number], 5206402211, 1500775, 69522740, 2349753, 9733652576 #### [facility] (DEFAULT) [address] [place] [address] 08283 Urea nitrogen [Mass/Vol] 11 mg/dL Normal 8- [facility] Comment on above: Performed By: #### 1 [id number], 0436707401, 4445031, 17492312, 8285565, 2579478542 #### [facility] (DEFAULT) [address] [place] [address] 92950 Urea nitrogen/Creatinine [Mass ratio] 18.0 mg/mg High 4.6-16.2 [facility] Comment on above: Performed By: #### 1 [id number], 3925021864, 4610396, 20796148, 5610334, 8102750746 #### [facility] (DEFAULT) [address] [place] [address] Abdomen/Pelvis w/o Contra stofaith 10-23-2019 CT Abdomen/Pelvis w/o Contrast EXAMINATION: CT [...] DO 10/23/19 8:20 pm Technologist: FABIENNE Normal [facility] ED Clinical Summaryon 2018 ED Clinical Summary [facility] - Emergency Department [address] [place], [place] [id number] ED Clinical Summary PERSON INFORMATION Name: LYNNE LAWS Age: 34 Years Sex: FEMALE : 1985 MRN: Acct#: Visit Reason: Nausea; Flank pain; VOMITING, RIGHT FLANK PAIN Arrival: 10/23/2019 17:36:59 Discharge: 10/23/2019 20:09:00 LOS: 000 02:33 Check In: 10/23/2019 17:36:59 Checkout:10/23/2019 20:09:00 Address: [facility] [address] [place] [id number] PCP: Provider, None PROVIDER INFORMATION Provider Role [...] ENT: -pharynx pink and moist. NECK: -Supple (cdyj-tm-bsqfs): non-tender. CARD: -Rate and rhythm: Regular -Edema: [...] % Auto Lymph % 30 % Auto Pitt % 6 % Auto Eos % 1.8 % Auto Baso % 0.2 % Neut Abs# 4.0 x103/mcL Lymph Abs# 2.0 x103/mcL Pitt Abs# 0.4 x103/mcL Eos Abs# 0.1 x103/mcL Baso Abs# 0.0 x103/mcL Tube Collected Yes . Impression and Plan Diagnosis Right flank pain ([id number] R10.9, Discharge, Medical) Plan Condition: Improved, Stable. [...] 3 to 5 days Urologist; Isidra Baig [phone] EXT: [phone] Call for family Physician Within 3 to 5 days Call to become established with primary care provider. Counseled: Patient, Regarding diagnosis, Regarding diagnostic results, Regarding treatment plan, Patient indicated understanding of instructions. DISCHARGE INFORMATION: Discharge Disposition: Home Discharge Location: Home PATIENT EDUCATION INFORMATION Instructions: Renal Colic; Flank Pain, Adult; Abdominal Pain, Adult Follow-Up: With: Address: When: Dion Son [facility], [address] [place] [address] Business (1) Within 2 to 4 days [...] or weakness. With: Address: When: Woody Diaz [address] [place] [address], [address] [place] [address] Business (1) Within 3 to 5 days Comments: Urologist With: Address: When: Isidra Baig [phone] EXT: [phone] Call for family Physician Within 3 to 5 days Comments: Call to become established with primary care provider DIAGNOSIS: Right flank pain Patient Understands: Yes - Patient/family/caregiver verbalizes understanding of instructions given Comment: [facility] ED Note - Physicianon 2018 ED Note - Physician Patient: LYNNE LAWS MRN: [id number]-- Age: 34 years Sex: FEMALE : 1985 [...] ENT: -pharynx pink and moist. NECK: -Supple (frkc-oa-tmiqd): non-tender. CARD: -Rate and rhythm: Regular -Edema: [...] % Auto Lymph % 30 % Auto Pitt % 6 % Auto Eos % 1.8 % Auto Baso % 0.2 % Neut Abs# 4.0 x103/mcL Lymph Abs# 2.0 x103/mcL Pitt Abs# 0.4 x103/mcL Eos Abs# 0.1 x103/mcL Baso Abs# 0.0 x103/mcL Tube Collected Yes . Impression and Plan Diagnosis Right flank pain (PKQ20-KI R10.9, Discharge, Medical) Plan Condition: Improved, Stable. [...] 3 to 5 days Urologist; Isidra Baig [phone] EXT: [phone] Call for family Physician Within 3 to 5 days Call to become established with primary care provider. Counseled: Patient, Regarding diagnosis, Regarding diagnostic results, Regarding treatment plan, Patient indicated understanding of instructions. [Electronically Signed on: 10/23/2019 19:52 EST] SERG LOCKE [Verified on: 10/23/2019 19:52 EST] SERG LOCKE [facility] ED Note-Nursingon 10-23-2019 ED Note-Nursing Pt [...] Pt walked to room 7 without assistance. [facility] ED Patient Education Noteon 10-23-2019 ED [...] Follow these instructions at home: ? Take gphp-xeh-sxafgug and prescription medicines only as told by [...] 08/24/2006 Document Revised: 06/03/2017 Document Reviewed: 04/27/2017 [employer] Interactive Patient Education ? 2019 weendy. Urology Renal Colic Renal colic is pain [...] provider if it is okay to take ozxo-hrv-oxibnzb pain medicine. ? Drink enough fluid to [...] 08/24/2006 Document Revised: 04/19/2017 Document Reviewed: 09/24/2015 [employer] Interactive Patient Education ? 2019 weendy. Flank Pain, Adult Flank pain is pain [...] by your health care provider. ? Take dvjq-hrd-bgtazut and prescription medicines only as told by [...] 01/05/2007 Document Revised: 01/27/2018 Document Reviewed: 01/27/2018 [employer] Interactive Patient Education ? 2019 weendy. Normal [facility] ED Patient Summaryon 019 ED Patient Summary [facility] - Emergency Department [address] [place] [address] PATIENT DISCHARGE INSTRUCTIONS Patient Information Name: LYNNE LAWS Age: 34 Years Date of : 1985 Reason For Visit: Nausea; Flank pain; VOMITING, RIGHT FLANK PAIN Arrival Time: 10/23/2019 17:36:59 Primary Care Physician: Provider, None Attending Physician: Boo Johnson MD Comment: Visit Diagnosis: Diagnoses This Visit Flank pain ([id number]) Nausea ([id number]) Right flank pain (R10.9) Prescription Information: If you have been given a prescription for narcotics, seek immediate medical attention if you have any difficulty breathing or any sudden status changes such as confusion and sleepiness. If you or anyone you know is experiencing suicidal thoughts, mental health, alcohol and/or drug addiction problems; contact the [facility] 20/06 Crisis Hotline -Text 4HXEW to 543453. If you received any narcotics, sedation, or [...] any legal documents With: Address: When: Dion Rosenbaum [facility], [id number] [place] [address] [place] [address] Business (1) Within 2 to 4 [...] or weakness. With: Address: When: Woody Diaz [address] [place] [address], [address] [place], [place] [id number] Business (1) Within 3 to 5 days Comments: Urologist With: Address: When: Isidra Baig [phone] EXT: [phone] Call for family Physician Within 3 to 5 days Comments: Call to become established with primary care provider Medication Information: The exam and treatment you received today in the [facility] Emergency Department were for an urgent problem and are not intended as complete care. It is important for you to follow up with a doctor, nurse practitioner, or physician?s assistant teacher for ongoing care. If your symptoms become [...] so we can reach you if necessary. [facility] Emergency Department has provided you with a complete list of medications post discharge. Please inform your water plant operator/provider of your visit and for further instruction [...] provider if it is okay to take zyjh-hbs-brnppjg pain medicine. ? Drink enough fluid to [...] 08/24/2006 Document Revised: 04/19/2017 Document Reviewed: 09/24/2015 [employer] Interactive Patient Education ? 2019 [employer] Flank Pain, Adult Flank pain is [...] by your health care provider. ? Take qkia-ljw-xiwnlph and prescription medicines only as told by [...] 01/05/2007 Document Revised: 01/27/2018 Document Reviewed: 01/27/2018 [employer] Interactive Patient Education ? 2019 [employer] Abdominal Pain, Adult Abdominal pain can [...] Follow these instructions at home: ? Take ocvv-smz-ctyjxoj and prescription medicines only as told by [...] 08/24/2006 Document Revised: 06/03/2017 Document Reviewed: 04/27/2017 [employer] Interactive Patient Education ? 2019 weendy. Viruses or Bacteria What?s got you sick? [...] Disease Control and Prevention July 2014 Normal [facility] Extra Blueon 10-23-2019 Tube Collected Yes [facility] Comment on above: Performed By: #### 1 [id number], 0822122, 98567262, 1296844, 5980986338 ####[facility] (DEFAULT)[address] [place] [address] 80571 Lactic Acidon 10-23-2019 Lactate [Moles/Vol] 6.5 mg/dL Normal 4.5-19.8 [facility] Comment on above: Performed By: #### 1 [id number], 4588310984, 3859980, 42633172, 2233951, 6190140336 #### [facility] (DEFAULT) [address] [place] [address] 39230 Lipaseon 10-23-2019 Lipase Level 48.0 IU/L Normal 22.0-51.0 [facility] Comment on above: Performed By: #### 1 [id number], 7721095805, 4545883, 93030862, 5398039, 5043999657 #### [facility] (DEFAULT) [address] [place] [address] 67995 Test Serum 1on Preg Serum Internal Control OK [facility] Comment on above: Performed By: #### 1 [id number], 7355073662, 4042557, 55741296, 5123921, 2356827283 #### [facility] (DEFAULT) [address] [place] [address] 58822 Test Serum Qual Negative [facility] Comment on above: Performed By: #### 1 [id number], 2575067814, 0313839, 89684083, 6974650, 8883446441 #### [facility] (DEFAULT) [address] [place] [address] 02230 UA w Culture if Ind Standard on 10-23-2019 Breakpoint UA [facility] Comment on above: Performed By: #### 1 [id number], 0908591119, 6807884, 08945002, 8705576, 2376494154 #### [facility] (DEFAULT) [address] [place] [address] 99661 Color (U) Yellow [facility] Comment on above: Performed By: #### 1 [id number], 0657338559, 5272313, 92136187, 4127330, 4453972737 #### [facility] (DEFAULT) [address] [place] [address] Culture? No Normal [facility] Comment on above: Performed By: #### 1 [id number], 8283496260, 3038776, 98513218, 0389921, 7160300245 #### [facility] (DEFAULT) [address] [place] [address] Glucose (U) [Mass/Vol] Negative [facility] Comment on above: Performed By: #### 1 [id number], 6284451320, 8366404, 52127384, 3586491, 5072287570 #### [facility] (DEFAULT) [address] [place] [address] 54069 Ketones Ql (U) Negative [facility] Comment on above: Performed By: #### 1 [id number], 7835344720, 5428094, 57649509, 7505751, 3718135222 #### [facility] (DEFAULT) [address] [place] [address] 59948 Micro? Not Indicated [facility] Comment on above: Performed By: #### 1 820793389, 2070105710, 7757207, 32274469, 4585570, 8161813991 #### [facility] (DEFAULT) [address] [place] [address] 19676 UA Bilirubin Negative [facility] Comment on above: Performed By: #### 1 545676378, 9831870312, 1363550, 55756688, 7166581, 9012369744 #### [facility] (DEFAULT) [address] [place] [address] 72991 UA Blood Negative Normal [facility] Comment on above: Performed By: #### 1 105100849, 2396667058, 4778415, 42453396, 8261163, 0648398930 #### [facility] (DEFAULT) [address] [place] [address] 36863 UA Clarity CLEAR Normal CLEAR [facility] Comment on above: Performed By: #### 1 [id number], 6227922043, 8631353, 59288000, 1130243, 0040762350 #### [facility] (DEFAULT) [address] [place] [address] UA Leuk Est Negative Normal NEGATIVE [facility] Comment on above: Performed By: #### 1 380887526, 3248014995, 9377523, 70452957, 7564475, 8239281540 #### [facility] (DEFAULT) [address] [place] [address] UA Nitrite Negative Normal NEGATIVE [facility] Comment on above: Performed By: #### 1 601129642, 8816111744, 5884147, 99512667, 7834453, 8308836960 #### [facility] (DEFAULT) [address] [place] [address] UA pH 5.5 Normal 5-8 [facility] Comment on above: Performed By: #### 1 619450047, 0377154362, 2467361, 38232799, 4164939, 1298554631 #### [facility] (DEFAULT) [address] [place] [address] UA Protein Negative Normal NEGATIVE [facility] Comment on above: Performed By: #### 1 686010998, 2423166042, 7244615, 29439092, 7359878, 4643277783 #### [facility] (DEFAULT) [address] [place] [address] UA Spec Grav 1.020 Normal 1.001-1.035 [facility] Comment on above: Performed By: #### 1 480901131, 9472322019, 9777648, 75264172, 6104875, 5234681835 #### [facility] (DEFAULT) [address] [place] [address] UA Urobilinogen 0.2 mg/dL Normal 0.2-1.0 [facility] Comment on above: Performed By: #### 1 154322913, 8495017481, 7863552, 81206129, 1079660, 2871047881 #### [facility] (DEFAULT) [address] [place] [address] Urine Source Clean Catch [facility] Comment on above: Performed By: #### 1 377152769, 9876099055, 5565612, 46721545, 2053886, 4941904283 #### [facility] (DEFAULT) [address] [place] [address] 08452 Coding Summaryon 12-13-2018 Coding Summary CODING DATE: 019 [facility] STATUS: Home PAYOR: Self Pay ADMIT [...] Ankita Roy Date Saved: 12/13/2018 01:35 pm [facility] Coding Summary CODING DATE: [facility] STATUS: Home PAYOR: Self Pay ADMIT [...] Ankita Roy Date Saved: 12/13/2018 01:33 pm [facility] .Auto Diff 12-11-2018 Auto Pitt % 7 % Normal 12 [facility] Comment on above: Performed By: #### 1 [id number], 3398121398, 5968073, 86943985, 2185512, 8824835606 #### [facility] (DEFAULT) [address] [place] [address] 96977 Baso Abs# 0.0 x10 Normal 0.0-0.2 [facility] Comment on above: Performed By: #### 1 025060128, 6715121039, 2462715, 51931521, 8099599, 8229454817 #### [facility] (DEFAULT) [address] [place] [address] 73438 Basophils/100 WBC (Bld) 0.3 % Normal 0.2-2.0 [facility] Comment on above: Performed By: #### 1 [id number], 1261965779, 8435736, 64406845, 2763071, 0705990130 #### [facility] (DEFAULT) [address] [place] [address] 27552 Eos Abs# 0.1 x10 Normal 0.0-0.4 [facility] Comment on above: Performed By: #### 1 473862031, 6320432905, 7528348, 84111150, 2194696, 6220465018 #### [facility] (DEFAULT) [address] [place] [address] 36928 Eosinophils/100 WBC (Bld) 1.5 % Normal 0.9-4.0 [facility] Comment on above: Performed By: #### 1 [id number], 1824053200, 3721450, 09769180, 2104641, 0645200782 #### [facility] (DEFAULT) [address] [place] [address] 79870 Lymphocytes (Bld) [#/Vol] 2.1 x10 Normal 1.3-2.9 [facility] Comment on above: Performed By: #### 1 [id number], 1883991196, 2983345, 65939607, 2512070, 4353628286 #### [facility] (DEFAULT) [address] [place] [address] 40335 Lymphocytes/100 WBC (Bld) 29 % Normal 14-48 [facility] Comment on above: Performed By: #### 1 284605015, 9630782873, 1109775, 55660932, 9288394, 9882746796 #### [facility] (DEFAULT) [address] [place] [address] 54210 Pitt Abs# 0.5 x10 Normal 0.0-0.8 [facility] Comment on above: Performed By: #### 1 858372851, 8682140573, 8721081, 38351223, 3353275, 8082663781 #### [facility] (DEFAULT) [address] [place] [address] Neut Abs# 4.6 x10 Normal 1.5-9.2 [facility] Comment on above: Performed By: #### 1 449791347, 2006416456, 9894515, 37791355, 8223234, 5618188708 #### [facility] (DEFAULT) [address] [place] [address] Neutrophils/100 WBC (Bld) 63 % Normal 44-88 [facility] Comment on above: Performed By: #### 1 697603286, 4892073522, 3759260, 57555499, 1476162, 2580168074 #### [facility] (DEFAULT) [address] [place] [address] CBC w/ Auto Diffon 9 Erythrocyte distribution width (RBC) [Ratio] 13.1 % Normal 11.5-15.0 [facility] Comment on above: Performed By: #### 1 [id number], 3399144517, 7280770, 35528339, 1057421, 8903904801 #### [facility] (DEFAULT) [address] [place] [address] Hematocrit (Bld) [Volume fraction] 37.8 % Normal 33.7-40.4 [facility] Comment on above: Performed By: #### 1 844833705, 2131923681, 2309512, 11908558, 4008453, 0708830939 #### [facility] (DEFAULT) [address] [place] [address] Hemoglobin (Bld) [Mass/Vol] 12.6 g/dL Normal 11.3-15.9 [facility] Comment on above: Performed By: #### 1 081098365, 9084064499, 6942763, 49973141, 3753695, 2170371576 #### [facility] (DEFAULT) [address] [place] [address] 56616 Man Diff? Auto Normal [facility] Comment on above: Performed By: #### 1 385487166, 3514556282, 0102088, 09439223, 9243216, 3593926082 #### [facility] (DEFAULT) [address] [place] [address] 94609 MCH (RBC) [Entitic mass] 30 pg Normal 24-34 [facility] Comment on above: Performed By: #### 1 762611576, 8703168741, 0291342, 21197681, 0852989, 3785110525 #### [facility] (DEFAULT) [address] [place] [address] 87836 MCHC (RBC) [Mass/Vol] 33 g/dL Normal 26-37 [facility] Comment on above: Performed By: #### 1 523119224, 7231624814, 4753145, 56663061, 8866646, 8380189640 #### [facility] (DEFAULT) [address] [place] [address] 20465 MCV (RBC) [Entitic vol] 90 fL Normal 81-100 [facility] Comment on above: Performed By: #### 1 363117663, 9609534750, 2520686, 63245176, 7348993, 6802807932 #### [facility] (DEFAULT) [address] [place] [address] 59104 Platelet mean volume (Bld) [Entitic vol] 11.6 fL High 6.3-10.2 [facility] Comment on above: Performed By: #### 1 [id number], 3036429830, 2485705, 15394410, 7982271, 2172046393 #### [facility] (DEFAULT) [address] [place] [address] 19427 Platelets (Bld) [#/Vol] 117 x10 Low 138-427 [facility] Comment on above: Performed By: #### 1 627821231, 4227098538, 7684929, 20709117, 7869704, 2175250679 #### [facility] (DEFAULT) [address] [place] [address] 11761 RBC (Bld) [#/Vol] 4.21 x10 Normal 3.70-5.30 [facility] Comment on above: Performed By: #### 1 806362563, 3996450648, 2931559, 30310190, 1728779, 1233349444 #### [facility] (DEFAULT) [address] [place] [address] 00581 WBC (Bld) [#/Vol] 7.3 x10 [facility] Comment on above: Performed By: #### 1 769011151, 2363031755, 1637081, 19075991, 7678674, 9545957962 #### [facility] (DEFAULT) [address] [place] [address] 05707 [facility] Standardon 12-11-2018 eGFR Non AA >60 [facility] Comment on above: Performed By: #### 1 [id number], 3164192702, 8679546, 27967172, 6742111, 0872693603 #### [facility] (DEFAULT) [address] [place] [address] 94839 eGFR AA >60 [facility] Comment on above: Result Comment: Shop Supervisor elizabeth Kidney disease could be indicated at eGFRs of less than 60 ml/min/1.73m2. Kidney Failure is indicated at less than 15 ml/min/1.73m2 Performed By: #### 1 [id number], 0297607318, 0258019, 81007085, 5602384, 1375609258 #### [facility] (DEFAULT) [address] [place] [address] 69666 Albumin [Mass/Vol] 4.1 g/dL Normal 3.5-5.0 [facility] Comment on above: Performed By: #### 1 [id number], 8716191334, 6917408, 91097600, 1845667, 6781756256 #### [facility] (DEFAULT) [address] [place] [address] 02077 Albumin/Globulin [Mass ratio] 1.3 {ratio} Low 1.4-2.6 [facility] Comment on above: Performed By: #### 1 [id number], 1901678347, 6282540, 06363947, 8264195, 5434241201 #### [facility] (DEFAULT) [address] [place] [address] 10457 Alk Phos 35 IU/L Normal 32-91 [facility] Comment on above: Performed By: #### 1 136407517, 8526618730, 3476774, 42425569, 5052443, 4374956387 #### [facility] (DEFAULT) [address] [place] [address] 27865 ALT/SGPT 11.0 IU/L Low 14.0-54.0 [facility] Comment on above: Performed By: #### 1 [id number], [id number], [id number], [id number], [id number], [id number] #### [facility] (DEFAULT) [address] [place] [address] 68507 Anion gap [Moles/Vol] 14.0 mmol/L Normal 5.0-19.0 [facility] Comment on above: Performed By: #### 1 [id number], [id number], 0731236, [id number], 8167534, [id number] #### [facility] (DEFAULT) [address] [place] [address] 93025 AST/SGOT 18 IU/L Normal 15-41 [facility] Comment on above: Performed By: #### 1 [id number], [id number], [id number], 72694697, 1809560, [id number] #### [facility] (DEFAULT) [address] [place] [address] 22394 Bili Total 0.3 mg/dL Normal 0.3-1.2 [facility] Comment on above: Performed By: #### 1 [id number], [id number], 4293414, 23011530, 8239199, [id number] #### [facility] (DEFAULT) [address] [place] [address] 54852 Calcium [Mass/Vol] 9.6 mg/dL Normal 8.9-10.3 [facility] Comment on above: Performed By: #### 1 [id number], [id number], 0639657, 46883195, 4285418, [id number] #### [facility] (DEFAULT) [address] [place] [address] 61109 Chloride [Moles/Vol] 106 mmol/L Normal 101-111 [facility] Comment on above: Performed By: #### 1 [id number], [id number], 0702229, 41746289, 4268560, [id number] #### [facility] (DEFAULT) [address] [place] [address] 14744 CO2 [Moles/Vol] 21 mmol/L Normal 21-32 [facility] Comment on above: Performed By: #### 1 [id number], [id number], 5342402, 57842409, 4095493, [id number] #### [facility] (DEFAULT) [address] [place] [address] 92658 Creatinine [Mass/Vol] 0.68 mg/dL Normal 0.60-1.30 [facility] Comment on above: Performed By: #### 1 [id number], [id number], 2938338, 70982519, 1695587, [id number] #### [facility] (DEFAULT) [address] [place] [address] 44851 Globulin (S) [Mass/Vol] 3.1 g/dL Normal 1.5-4.3 [facility] Comment on above: Performed By: #### 1 [id number], [id number], 7752203, 50288224, 9248984, [id number] #### [facility] (DEFAULT) [address] [place] [address] 77748 Glucose [Mass/Vol] 88.0 mg/dL Normal 74.0-118.0 [facility] Comment on above: Performed By: #### 1 [id number], [id number], 4254160, 24177656, 0014903, [id number] #### [facility] (DEFAULT) [address] [place] [address] 18766 Osmolality [Osmolality] 272 mOsm/L [facility] Comment on above: Performed By: #### 1 [id number], [id number], 0989391, 66037155, 9411246, [id number] #### [facility] (DEFAULT) [address] [place] [address] 32884 Potassium [Moles/Vol] 3.5 mmol/L Low 3.6-5.1 [facility] Comment on above: Performed By: #### 1 [id number], [id number], 8869794, 82737965, 7667768, [id number] #### [facility] (DEFAULT) [address] [place] [address] 69200 Protein [Mass/Vol] 7.2 g/dL Normal 6.5-8.1 [facility] Comment on above: Performed By: #### 1 [id number], [id number], 4564707, 15333648, 3536075, [id number] #### [facility] (DEFAULT) [address] [place] [address] 72997 Sodium [Moles/Vol] 137.0 mmol/L Normal 136.0-144.0 [facility] Comment on above: Performed By: #### 1 [id number], [id number], 0551555, 78588563, 4787021, [id number] #### [facility] (DEFAULT) [address] [place] [address] 90269 Urea nitrogen [Mass/Vol] 10 mg/dL Normal 8-26 [facility] Comment on above: Performed By: #### 1 [id number], [id number], 7549084, 42673608, 2749491, [id number] #### [facility] (DEFAULT) [address] [place] [address] 19586 Urea nitrogen/Creatinine [Mass ratio] 15.0 mg/mg Normal 4.6-16.2 [facility] Comment on above: Performed By: #### 1 [id number], [id number], 4478066, 82298375, 4580441, [id number] #### [facility] (DEFAULT) [address] [place] [address] 99994 ED Clinical Summaryon 2018 ED Clinical Summary [facility] Emergency Department [address] [place] [address] 5[address]71 ED Clinical Summary PERSON INFORMATION Name: LYNNE LAWS Age: 33 Years Sex: FEMALE : [birth year] MRN: Acct#: Visit Reason: Abdominal pain; ABD PAIN Arrival: 12/11/18 16:56:00 Discharge: 12/11/18 19:08:00 LOS: 000 02:12 Check In: 12/11/18 16:56:00 Checkout:12/11/18 19:08:00 Address: [facility] [address] PCP: Provider, None PROVIDER INFORMATION Provider Role [...] longer taking Zantac. Patient states she takes fqnn-rxh-gwupzmi Tums as needed. Patient denies any fever, chills. She denies any nausea vomiting diarrhea black or tarry stools or blood in the stool. 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 She should [...] Impression and Plan Diagnosis Epigastric abdominal pain ([id number] R10.13, Discharge, Medical) GERD (gastroesophageal reflux disease) (AAX52-VC K21.9, Discharge, Medical) Plan Condition: Stable. Disposition: [...] provided with information for primary care physician: [facility], , Address: [address] [place] [address]. Please call to schedule a follow up [...] epigastric abdominal discomfort. 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 Patient denied any chest pain or shortness of breath. Following medications patient had improved patient given prescription for omeprazole once daily and Pepcid twice daily for her history of gastric ulcer. Also given information to follow Dr. York in [place] patient states she is from [facility] as well as Dr. Jeffery, or [...] Adult Follow-Up: With: Address: When: Johnny [address] [place] [address] Business (1) Within 3 to 5 days With: Address: When: Remy Jeffery [address], [address] [place] [address] Business (1) Within 3 to 5 days With: Address: When: ISABELL YORK [address] [place] [address] Business (1) Within 3 to 5 days With: Address: When: Follow up with primary care provider Within 3 to 5 days Comments: You are provided with information for primary care physician: [facility], , Address: [address] [place] [address]. Please call to schedule a follow up [...] Patient/family/caregiver verbalizes understanding of instructions given Comment: [facility] ED Note - Physicianon 2018 ED [...] longer taking Zantac. Patient states she takes gyib-pud-taxcnxo Tums as needed. Patient denies any fever, chills. She denies any nausea vomiting diarrhea black or tarry stools or blood in the stool. 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 She should [...] Impression and Plan Diagnosis Epigastric abdominal pain ([id number]-DX R10.13, Discharge, Medical) GERD (gastroesophageal reflux disease) (LEQ74-BR K21.9, Discharge, Medical) Plan Condition: Stable. Disposition: [...] provided with information for primary care physician: [facility], , Address: [address] [place] [address]. Please call to schedule a follow up [...] epigastric abdominal discomfort. 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 Patient denied any chest pain or shortness of breath. Following medications patient had improved patient given prescription for omeprazole once daily and Pepcid twice daily for her history of gastric ulcer. Also given information to follow Dr. York in [place] patient states she is from [facility] as well as Dr. Jeffery, or [...] 12/12/2018 Pt was seen yesterday. 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 This was corrected, and pt picked it up. [Electronically Signed on: 12/12/2018 12:19 EST] Jerrell Centeno PA-C [facility] ED Note-Nursingon 12-11-2018 ED Note-Nursing Patient arrives with c/o epigastric pain/burning that goes to her back. Patient rates pain a 6/10 prior to medication. Hisotry of GERD No nausea/vomiting/diarrhea and no pain with urination. [facility] ED Patient Education Noteon 12-11-2018 ED [...] vinegar, hot sauces, and barbecue sauce. ? Gilmer fruit juices and citrus fruits, such as oranges, jose guadalupe, and limes. ? Tomato-based foods, such as red sauce, chili, salsa, and pizza with red sauce. ? Fried and fatty foods, such as donuts, american fries, potato chips, and high-fat dressings. ? [...] any changes in your symptoms. ? Take bvbg-yqy-wyvhdaq and prescription medicines only as told by [...] 08/24/2006 Document Revised: 04/13/2017 Document Reviewed: 03/10/2016 [employer] Interactive Patient Education ? 2017 weendy. Abdominal Pain, Adult Abdominal pain can be [...] Follow these instructions at home: ? Take eoce-yef-pewrmiz and prescription medicines only as told by [...] Reviewed: 04/27/2017 Elsevier Interactive Patient Education ? 2016 [employer] Normal [facility] ED Patient Summaryon 019 ED Patient Summary [facility] - Emergency Department [address] [place] [address] PATIENT DISCHARGE INSTRUCTIONS Patient Information Name: LYNNE LAWS Age: 33 Years Date of : [birth year] Reason For Visit: Abdominal pain; ABD PAIN Arrival Time: 12/11/18 16:56:00 Primary Care Physician: Provider, None Attending Physician: Herman Adam MD Comment: Visit Diagnosis: Diagnoses This Visit Abdominal pain ([id number]) Epigastric abdominal pain (R10.13) GERD (gastroesophageal reflux [...] documents With: Address: When: Johnny [address] [place] [address] Business (1) Within 3 to 5 days With: Address: When: Remy Jeffery [address], [address] [place] [address] Business (1) Within 3 to 5 days With: Address: When: ISABELL YORK [address] [place], [place] [id number] Business (1) Within 3 to 5 days With: Address: When: Follow up with primary care provider Within 3 to 5 days Comments: You are provided with information for primary care physician: [facility], , Address: [address] [place], [place] [address]es [place], [place]. Please call to schedule a follow [...] and treatment you received today in the [facility] Emergency Department were for an urgent problem and are not intended as complete care. It is important for you to follow up with a doctor, nurse practitioner, or physician?s assistant teacher for ongoing care. If your symptoms become [...] so we can reach you if necessary. [facility] Emergency Department has provided you with a complete list of medications post discharge. Please inform your water plant operator/provider of your visit and for further instruction [...] vinegar, hot sauces, and barbecue sauce. ? Gilmer fruit juices and citrus fruits, such as oranges, jose guadalupe, and limes. ? Tomato-based foods, such as red sauce, chili, salsa, and pizza with red sauce. ? Fried and fatty foods, such as donuts, american fries, potato chips, and high-fat dressings. ? [...] any changes in your symptoms. ? Take adat-ctw-ijmfgks and prescription medicines only as told by [...] 08/24/2006 Document Revised: 04/13/2017 Document Reviewed: 03/10/2016 [employer] Interactive Patient Education ? 2017 weendy. Abdominal Pain, Adult Abdominal pain can be [...] Follow these instructions at home: ? Take joam-ywg-dryoaoz and prescription medicines only as told by [...] 08/24/2006 Document Revised: 06/03/2017 Document Reviewed: 04/27/2017 [employer] Interactive Patient Education ? 2017 weendy. Viruses or Bacteria What?s got you sick? [...] Disease Control and Prevention July 2014 Normal [facility] Extra Redon 12-11-2018 Tube Collected Yes [facility] Comment on above: Performed By: #### 1 [id number], [id number], [id number], [id number], [id number], [id number] #### [facility] (DEFAULT) [address] [place] [address] 45129 Lactic Acidon 12-11-2018 Lactate [Moles/Vol] 7.7 mg/dL Normal 4.5-19.8 [facility] Comment on above: Performed By: #### 2 [id number] ####[facility] (DEFAULT)[address] [place] [address] 81354 Lipaseon 12-11-2018 Lipase Level 38.0 IU/L Normal 22.0-51.0 [facility] Comment on above: Performed By: #### 1 [id number], [id number], [id number], 44095736, [id number], [id number] #### [facility] (DEFAULT) [address] [place] [address] 13333 Test Urine 1on U Preg Negative [facility] Comment on above: Performed By: #### 3 [id number], [id number] #### [facility] (DEFAULT) [address] [place] [address] 61910 U Preg Internal Control Pass [facility] Comment on above: Performed By: #### 3 [id number], [id number] #### [facility] (DEFAULT) [address] [place] [address] 12578 UA w Culture if Ind Standard on 12-11-2018 Breakpoint UA Normal [facility] Comment on above: Performed By: #### 3 [id number], [id number] #### [facility] (DEFAULT) [address] [place] [address] 78828 Color (U) YELLOW [facility] Comment on above: Performed By: #### 3 [id number], [id number] #### [facility] (DEFAULT) [address] [place] [address] Culture? Not Indicated [facility] Comment on above: Performed By: #### 3 [id number], [id number] #### [facility] (DEFAULT) [address] [place] [address] 90365 Glucose (U) [Mass/Vol] Negative [facility] Comment on above: Performed By: #### 3 [id number], [id number] #### [facility] (DEFAULT) [address] [place] [address] 43717 Ketones Ql (U) Negative [facility] Comment on above: Performed By: #### 3 [id number], [id number] #### [facility] (DEFAULT) [address] [place] [address] 80983 Micro? Not Indicated [facility] Comment on above: Performed By: #### 3 [id number], [id number] #### [facility] (DEFAULT) [address] [place] [address] 61713 UA Bilirubin Negative Normal [facility] Comment on above: Performed By: #### 3 [id number], [id number] #### [facility] (DEFAULT) [address] [place] [address] 41793 UA Blood Negative Normal NEGATIVE [facility] Comment on above: Performed By: #### 3 [id number], [id number] #### [facility] (DEFAULT) [address] [place] [address] 36890 UA Clarity CLEAR Normal CLEAR [facility] Comment on above: Performed By: #### 3 [id number], [id number] #### [facility] (DEFAULT) [address] [place] [address] 91249 UA Leuk Est Negative Normal NEGATIVE [facility] Comment on above: Performed By: #### 3 [id number], [id number] #### [facility] (DEFAULT) [address] [place] [address] 43611 UA Nitrite Negative Normal NEGATIVE [facility] Comment on above: Performed By: #### 3 [id number], [id number] #### [facility] (DEFAULT) [address] [place] [address] 00980 UA pH 6.0 5-8 [facility] Comment on above: Performed By: #### 3 [id number], [id number] #### [facility] (DEFAULT) [address] [place] [address] 78098 UA Protein Negative Normal NEGATIVE [facility] Comment on above: Performed By: #### 3 [id number], [id number] #### [facility] (DEFAULT) [address] [place] [address] 87328 UA Spec Grav >=1.030 1.001-1.035 [facility] Comment on above: Performed By: #### 3 [id number], [id number] #### [facility] (DEFAULT) [address] [place] [address] 27016 UA Urobilinogen 0.2 mg/dL Normal 0.2-1.0 [facility] Comment on above: Performed By: #### 3 [id number], [id number] #### [facility] (DEFAULT) [address] [place] [address] 49500 Urine Source Clean Catch Normal [facility] Comment on above: Performed By: #### 3 [id number], [id number] #### [facility] (DEFAULT) [address] [place] [address] C-SPINE WO CONon 09-19-[address] C-SPINE WO CON [address] [place] [address] Patient: LYNNE LAWS Exam Date: 09/18/2017DOB: 1985 Gender:F : DR BURKE HOPE . Admission #: [id number] : Order #: [id number] HERE TO VIEW EXAM RADIOLOGY REPORT CT [...] Magana M.D. on 09/27/2017 at 11:32 Normal [facility] Vital Signs Date Time Vital Sign Value Performing Clinician Facility 01-14-2025 17:30-0500 Body temperature 98.1 [degF] [facility] DO [facility] 01-14-2025 17:00-0500 Diastolic blood pressure 100 mm[Hg] Serg [facility]argas DO [facility] 01-14-2025 17:00-0500 Heart rate 97 /min [facility] DO [facility] [employer] 01-14-2025 17:00-0500 Respiratory rate 16 /min Serg Vargas DO Work Phone: [facility] [employer] 01-14-2025 17:00-0500 SaO2% (BldA) [Mass fraction] 93 % Serg Vargas DO Work Phone: [facility] [employer] 01-14-2025 17:00-0500 Systolic blood pressure 146 mm[Hg] [facility]as DO [facility] 01-14-2025 10:37-0500 Body height 180.3 cm Serg Vargas DO Work Phone: [facility] 01-14-2025 10:37-0500 Body mass index (BMI) [Ratio] 30.54 kg/m2 Serg Vargas DO Work Phone: [facility] 01-14-2025 10:37-0500 Body weight 99.34 kg Serg Vargas DO Work Phone: [facility] 12-19-2024 11:30-0500 Body temperature 97.5 [degF] Serg Vargas DO Work Phone: [facility] 12-19-2024 11:30-0500 Diastolic blood pressure 89 mm[Hg] Serg Vargas DO Work Phone: [facility] 12-19-2024 11:30-0500 Heart rate 96 /min Serg Vargas DO Work Phone: [facility] 12-19-2024 11:30-0500 Respiratory rate 15 /min Serg Vargas DO Work Phone: [facility] 12-19-2024 11:30-0500 SaO2% (BldA) [Mass fraction] 98 % Serg Vargas DO Work Phone: [facility] 12-19-2024 11:30-0500 Systolic blood pressure 121 mm[Hg] Serg Vargas DO Work Phone: [facility] 12-19-2024 09:20-0500 Body height 180.3 cm Serg Vargas DO Work Phone: [facility] 12-19-2024 09:20-0500 Body mass index (BMI) [Ratio] 30.6 kg/m2 Serg Vargas DO Work Phone: [employer] 12-19-2024 09:20-0500 Body weight 99.52 kg Serg Vargas DO Work Phone: [facility] 09-12-2024 14:41-0400 Body height 180.3 cm Buffy Krotzer CHART CALCULATOR-LEARNING DISABILITIES RESOURCE TEACHER Work Phone: [employer] 09-12-2024 14:41-0400 Body mass index (BMI) [Ratio] 28.17 kg/m2 Buffy Krotzer CHART CALCULATOR-LEARNING DISABILITIES RESOURCE TEACHER Work Phone: [employer] 09-12-2024 14:41-0400 Body weight 91.63 kg Buffy Krotzer CHART CALCULATOR-LEARNING DISABILITIES RESOURCE TEACHER Work Phone: [employer] 09-12-2024 14:41-0400 Diastolic blood pressure 80 mm[Hg] Buffy Krotzer CHART CALCULATOR-LEARNING DISABILITIES RESOURCE TEACHER Work Phone: [employer] 09-12-2024 14:41-0400 Systolic blood pressure 122 mm[Hg] Buffy Krotzer CHART CALCULATOR-LEARNING DISABILITIES RESOURCE TEACHER Work Phone: [employer] 08-16-2023 15:40-0400 Body height 178.44 cm Keron Carson Other [employer] Other 08-16-2023 15:40-0400 Body mass index (BMI) [Ratio] 30.91 kg/m2 Keron Carson Other [employer] Other 08-16-2023 15:40-0400 Body weight 98.43 kg Keron Carson Other [employer] Other 08-16-2023 15:40-0400 Diastolic blood pressure 80 mm[Hg] Keron Carson Other [employer] Other 08-16-2023 15:40-0400 Systolic blood pressure 132 mm[Hg] Keron Carson Other [employer] Other 02-24-2023 14:00-0400 Body height 178.44 cm Keron Carson Other [employer] Other 12-23-2022 14:40-0500 Body height 178.44 cm Keron Carson Other [employer] Other 12-23-2022 14:40-0500 Body mass index (BMI) [Ratio] 30.63 kg/m2 Keron Carson Other [employer] Other 12-23-2022 14:40-0500 Body weight 97.52 kg Keron Carson Other [employer] Other 10-12-2022 14:00-0500 Body height 178.44 cm Keron Carson Other [employer] Other 10-12-2022 14:00-0500 Body mass index (BMI) [Ratio] 31.05 kg/m2 Keron Carson Other [employer] Other 10-12-2022 14:00-0500 Body weight 98.88 kg Keron Carson Other [employer] Other 09-11-2022 12:00-0400 Body temperature 98.3 [degF] PHYSICIAN NO [facility] 09-11-2022 12:00-0400 Diastolic blood pressure 91 mm[Hg] PHYSICIAN NO [facility] 09-11-2022 12:00-0400 Heart rate 69 /min PHYSICIAN NO [facility] 09-11-2022 12:00-0400 Respiratory rate 12 /min PHYSICIAN NO [facility] 09-11-2022 12:00-0400 SaO2% (BldA) [Mass fraction] 95 % PHYSICIAN NO [facility] 09-11-2022 12:00-0400 Systolic blood pressure 149 mm[Hg] PHYSICIAN NO [facility] 09-11-2022 04:33-0400 Body weight 98.2 kg PHYSICIAN NO [facility] 09-11-2022 00:00-0400 Inhaled oxygen concentration 95 % PHYSICIAN NO [facility] 09-10-2022 10:30-0400 Inhaled oxygen flow rate 2 L/min PHYSICIAN [facility] 09-10-2022 07:04-0400 Body height 180.34 cm PHYSICIAN [facility] 09-10-2022 07:04-0400 Body mass index (BMI) [Ratio] 28.7 kg/m2 PHYSICIAN NO [facility] 06-29-2022 10:45-0400 Body height 178.44 cm Henok Crawford Other [employer] Other 06-29-2022 10:45-0400 Body mass index (BMI) [Ratio] 31.05 kg/m2 Henok Crawford Other [employer] Other 06-29-2022 10:45-0400 Body weight 98.88 kg Henok Crawford Other [employer] Other Encounters Encounter Date Encounter Type Care Provider Facility Start: 02-01-2025 End: 02-01-2025 ambulatory Wong Pedro Luis Facility:[facility] Start: 02-01-2025 End: 02-01-2025 Departed Referred Nely Cruz PA-C Work Phone: [facility] Start: 01-29-2025 End: 01-29-2025 [facility] Start: 01-29-2025 End: 01-29-2025 Subsequent hospital visit by physician Nely Cruz PA-C Work Phone: [facility] Comment on above: UTI symptoms Start: 01-14-2025 End: 01-14-2025 ambulatory SERG [facility] Start: 01-14-2025 End: 01-14-2025 Subsequent hospital visit by physician Serg Vargas DO Work Phone: [facility] Comment on above: Post-op pain (Primar y Dx); 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)(female); Hyperactivity of bladder; Female cystocele; Rectocele; Uterine prolapse Start: 01-02-2025 End: 01-02-2025 ambulatory NELY CRUZ [facility] Start: 01-02-2025 Encounter for other preprocedural examination NELY CRUZ [facility] Start: 01-02-2025 End: 01-02-2025 Patient encounter status Nely Cruz PA-C Work Phone: [facility] Start: 01-02-2025 End: 01-02-2025 Subsequent hospital visit by physician Nely Cruz PA-C Work Phone: [facility] Comment on above: Pre-op testing Start: 12-19-2024 End: 12-19-2024 ambulatory SERG VARGAS [facility] Start: 12-19-2024 End: 12-19-2024 Subsequent hospital visit by physician Serg Vargas DO Work Phone: [facility] Start: 09-12-2024 End: 09-12-2024 Office outpatient visit 15 minutes Buffy Stearns CHART CALCULATOR-LEARNING DISABILITIES RESOURCE TEACHER Work Phone: [facility] Obstetrics/Gynecology Comment on above: Cystocele with prola pse (Primary Dx) Start: 09-12-2024 End: 09-12-2024 ambulatory BUFFY STEARNS [facility] Start: 12-21-2023 End: 12-21-2023 ambulatory Facility:[facility] Start: 09-02-2023 End: 09-02-2023 ambulatory Keron Carson Other [employer] Other Start: 09-02-2023 Telephone encounter Keron Carson [facility] Start: 08-16-2023 End: 08-16-2023 ambulatory Keron Carson Other [employer] Other Start: 08-16-2023 Office outpatient vi sit 15 minutes Keron Carson [facility] Start: 02-24-2023 End: 02-24-2023 ambulatory Kreon Carson Other [employer] Other Start: 02-24-2023 Office outpatient vi sit 15 minutes Keron Carson [facility] [place] Start: 02-17-2023 End: 02-17-2023 ambulatory NON STAFF [facility] Work Phone: Start: 02-17-2023 End: 02-17-2023 Patient encounter procedure [facility] [place] Work Phone: Start: 12-23-2022 End: 12-23-2022 ambulatory Keron Carson Other [employer] Other Start: 12-23-2022 Office outpatient vi sit 15 minutes Keron Carson [facility] [place] Start: 12-21-2022 End: 12-21-2022 ambulatory NON STAFF [facility] Work Phone: Start: 12-21-2022 End: 12-21-2022 Patient encounter procedure MD Keron Carson Work Phone: [facility] [place] Work Phone: Start: 10-12-2022 End: 10-12-2022 ambulatory Keron Carson Other [facility] [employer] Other Start: 10-12-2022 Postop follow up vis it related to original px Keron Carson [facility] [place] Start: 10-01-2022 End: 10-01-2022 ambulatory PHYSICIAN NO [facility] Work Phone: Start: 10-01-2022 End: 10-01-2022 Patient encounter procedure PHYSICIAN NO [facility] [place] Start: 09-10-2022 Admission to same [facility] Keron Carson [facility] Start: 09-10-2022 End: 09-10-2022 ambulatory Keron Carson Other [employer] Other Start: 09-09-2022 End: 09-09-2022 ambulatory Keron Carson Other [employer] Other Start: 09-09-2022 Patient encounter procedure Keron Carson [facility] Start: 09-08-2022 End: 09-08-2022 ambulatory Keron Carson Other [employer] Other Start: 09-08-2022 Patient encounter procedure Keron Carson [facility] Start: 09-07-2022 End: 09-11-2022 Evaluation and management of inpatient PHYSICIAN [facility] Start: 07-20-2022 End: 07-20-2022 ambulatory Henok Benavidezwilfrid Other [employer] Other Start: 07-20-2022 Telephone encounter Henok Crawford [facility] Start: 06-29-2022 End: 06-29-2022 ambulatory Henok Reemagiulianolalo Other [employer] Other Start: 06-29-2022 [facility] visit new patient Henok Benavidezwilfrid [facility] Start: 09-19-2017 End: 09-19-2017 Ambulatory [facility] Facility: Procedures Date Procedure Procedure Detail Performing Clinician [...] [Identifier] in Cervix by Cyto stain Buffy Stearns CHART CALCULATOR-LEARNING DISABILITIES RESOURCE TEACHER Work Phone: Plan of Treatment Date Care Activity Detail Author Start: 09-12-2025 Adult BMI Screening Adult BMI Screening [facility] Start: 09-12-2025 Tobacco Screening Tobacco Screening [facility] Start: 02-22-2025 End: 02-22-2025 Patient encounter procedure 02/22/2025 9:30 AM EDT Office Visit [facility] [address] [place] [address] [place] [address] [place] [address] 6 WK PO [facility] Comment on above: 6 WK PO Start: 02-21-2025 End: 02-21-2025 Patient encounter procedure 02/21/2025 1:45 PM EDT Office Visit [facility]ro[facility]cology [facility] [address] [place] [id number] Serg Vargas, DO [address] [place] [address] 6 WK PO [facility]ro[facility] Comment on above: 6 WK PO Start: 02-01-2025 Bacteria identified in Urine by Culture Urine Culture [facility] Start: 02-01-2025 Urine culture [facility] Start: 01-21-2025 End: 01-21-2025 Patient encounter procedure 01/21/2025 1:45 PM EST Office Visit [facility] Urogynecology [facility] Rehabilitation [address] [place] [address] Kimi Bird APRN - SLIM [address] [place] [address] 1 WK PO [facility]gynecology [facility] Comment on above: 1 WK PO Start: 01-14-2025 End: 01-14-2025 Admission to same day surgery center 01/14/2025 12:30 PM EST - 01/14/2025 3:00 PM EST Surgery [facility] [place] [address] [place] [address] [place] [address] [place] [address] HYSTERECTOMY VAGINAL ANTERIOR AND POSTERIOR REPAIR [facility] [place] Comment on above: HYSTERECTOMY VAGINAL ANTERIOR AND PLC PROGRAMMER IOR REPAIR Start: 01-14-2025 End: 01-14-2025 Laparoscopy w/rmvl adnexal structures [facility] Start: 01-14-2025 End: 01-14-2025 Ndsc njx implt matrl urt&/bldr nck [facility] Start: 01-14-2025 Subsequent hospital visit by physician 01/14/2025 12:30 PM EST Hospital Encounter [facility] [place] [address] [place] [address] [place] [address] [place] [address] [facility] [place] Start: 01-14-2025 End: 01-14-2025 Vaginal hysterectomy uterus 250 gm/< [facility] Start: 12-19-2024 End: 12-19-2024 Cystourethroscopy CYSTOSCOPY SUPRAPUBIC TUBE PLACEMENT Chronic bladder pain Incomplete bladder emptying 12/19/2024 10:25 AM [facility] Start: 08-17-2024 Screening for malignant neoplasm of cervix Pap Smear [facility] Start: 07-29-2024 COVID-19 Vaccine ( season) COVID-19 Vaccine () [facility] Start: 07-29-2024 COVID-19 Vaccine () COVID-19 Vaccine () [facility] Start: 07-29-2024 COVID-19 Vaccine () COVID-19 Vaccine () [facility] Start: 07-29-2024 Influenza vaccination Influenza Vaccine [facility] Start: 06-28-2024 Influenza vaccination Flu vaccine (#1) [facility] Start: 11-09-2023 Adult BMI Follow Up Plan Adult BMI Follow Up Plan [facility] Start: 2022 Diabetes screen Diabetes screen [facility] Start: 09-11-2022 [facility] Start: 09-10-2022 [facility] Start: 09-07-2022 Consultation [facility] Start: 09-07-2022 Fusion of 2 or more Cervical Vertebral Joints with Autologous Tissue Substitute, Posterior Approach, Posterior Column, Open Approach Fusion of 2 or more Cervical Vertebral Joints with Autologous Tissue Substitute, Posterior Approach, Posterior Column, Open Approach [facility] Start: 09-07-2022 Release Cervical Nerve, Open Approach Release Cervical Nerve, Open Approach [facility] Start: 09-07-2022 Resection of Cervical Vertebral Disc, Open Approach Resection of Cervical Vertebral Disc, Open Approach [facility] Start: 2017 Screening for malignant neoplasm of cervix [facility] Start: 2008 Screening for malignant neoplasm of cervix Pap smear [facility] Start: 2006 DTaP,Tdap and Td Vaccines (1 - Tdap) DTaP,Tdap and Td Vaccines (1 - Tdap) [facility] Start: 2006 DTaP/Tdap/Td vaccine (1 - Tdap) DTaP/Tdap/Td vaccine (1 - Tdap) [facility] Start: 2006 Hepatitis B vaccine (1 of 3 - 19+ 3-dose series) Hepatitis B vaccine (1 of 3 - 19+ 3-dose series) [facility] Start: 2005 Hepatitis C screening Hepatitis C screen [facility] Start: 2002 HIV screening HIV screen [facility] Start: 2000 Varicella vaccine (1 of 2 - 13+ 2-dose series) Varicella vaccine (1 of 2 - 13+ 2-dose series) [facility] Start: 1999 Depression Screen Depression Screen [facility] Start: 1999 Depression Screening Depression Screening [facility] End: 01-14-2025 Blood glucose - POCT Blood glucose - POCT Point of Care Testing Routine One Time for 1 Occurrences starting 01/14/2025 until 01/14/2025 [facility] Comment on above: One Time for 1 Occurrences starting 12/29 until 01/14/2025 End: 01-29-2025 [facility]: 1 Occurrences starting 01/29/2025 until 01/29/2025 End: 01-14-2025 Hemoglobin and Hematocrit Hemoglobin and Hematocrit Lab Routine One Time for 1 Occurrences starting 01/14/2025 until 01/14/20[facility] on above: One Time for 1 Occurrences starting 12/29 until 01/14/2025 End: 12-19-2024 INITIATE PACU OXYGEN THERAPY PROTOCOL Initiate PACU Oxygen Therapy Protocol Respiratory Care Routine Continuous until discontinued starting 12/19/2024 [facility] Work Phone: Comment on above: Continuous until discontinued starting 0 12/19/2024 End: 01-14-2025 INITIATE PACU OXYGEN THERAPY PROTOCOL Initiate PACU Oxygen Therapy Protocol Respiratory Care Routine Continuous until discontinued starting 01/14/2025 [facility] Work Phone: Comment on above: Continuous until discontinued starting 0 01/14/2025 Oxygen therapy [Mini mum Data Set] Initiate Oxygen Therapy Protocol Respiratory Care Routine As Needed until discontinued starting 12/19/2024 [facility] Work Phone: Comment on above: As Needed until discontinued starting Oxygen therapy [[facility] Data Set] Initiate Oxygen Therapy Protocol Respiratory Care Routine As Needed until discontinued starting 01/14/2025 [facility] Work Phone: Comment on above: As Needed until discontinued starting Pathology study Surgical Patholo gy Lab Routine 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)(female) Hyperactivity of bladder Female cystocele Rectocele Uterine prolapse Release Upon Ordering for 1 Occurrences starting 01/14/2025 [facility] Work Phone: Comment on above: Release Upon Ordering for 1 Occurrences starting 01/14/2025 Patient referral [facility] Work Phone: End: 12-19-2024 , urine POCT , urine POCT Point of Care Testing Routine One Time for 1 Occurrences starting 12/19/2024 until 12/19/2024 [facility] Comment on above: One Time for 1 Occurrences starting 11/29 until 12/19/2024 End: 01-14-2025 , urine POCT , urine POCT Point of Care Testing Routine One Time for 1 Occurrences starting 01/14/2025 until 01/14/2025 [facility] Comment on above: One Time for 1 Occurrences starting 12/29 until 01/14/2025 Immunizations Immunization Date Immunization Notes Care Provider [facility] 10-12-2022 influenza virus vaccine, unspecified formulation Buffy Stearns CHART CALCULATOR-LEARNING DISABILITIES RESOURCE TEACHER Work Phone: [employer] Payers Date Payer Category Payer Self-pay [id number] 2024 Private Health Insurance [id number] 2020 Unknown [id number] 2020 Private Health Insurance [id number] 2018 Unknown [id number] 1999 Medicaid [id number] 1987 Unknown [id number] 1987 Unknown [id number] 1987 Unknown [id number] 1987 Unknown [id number] 1987 Unknown [id number] 1959 Private Health Insurance [id number] Medicaid [id number] Private Health Insurance [employer] [id number] Unknown [id number] Unknown [id number] Unknown [id number] Social History Date Type Detail Facility Start: 12-19-2024 End: 01-14-2025 Sex Assigned At [employer] Other Start: 09-10-2022 End: 12-23-2022 Tobacco smoking status NHIS Ex-smoker (finding) [facility] Start: 1985 Sex Assigned At Female [facility] End: 07-29-2016 History of tobacco use Current smoker [facility] End: 07-29-2016 History of tobacco use Cigarette Smoker [facility] Start: 09-12-2024 End: 09-27-2024 Tobacco use and exposure Smokeless tobacco non-user [facility] Start: 12-19-2024 End: 01-29-2025 Alcoholic beverage intake Current drinker of alcohol (finding) [facility] Start: 12-19-2024 End: 01-14-2025 History of Social function [facility] Physical abuse Denies [facility] Start: 09-25-2024 Alcohol Comment social [facility] Start: 07-31-2021 Gender identity Identifies as female gender (finding) [facility] Start: 07-31-2021 Sexual orientation Heterosexual (finding) [facility] Start: 01-24-2020 Alcohol Comment ocassional, not often [facility] Start: 01-15-2016 End: 02-02-2025 Sex Female (finding) [facility] Medical Equipment Procedure Code Equipment Code Equipment Origin al Text Equipment Identifier Dates BONE 7MM DUO FORTITUDE SERIES FDA Start: 09-10-2022 Spinal fixation plate, non-bioabsorbable [id number] FDA Start: 09-10-2022 Spinal fixation plate, non-bioabsorbable ()[id number] FDA Start: 09-10-2022 Intervertebral-b od y internal spinal fixation system ()[id number] FDA Start: 09-10-2022 BONE 7MM DUO FORTITUDE SERIES FDA Start: 09-10-2022 BONE 7MM DUO FORTITUDE SERIES FDA Start: 09-10-2022 System Bulking P rc Bulkamid Urethral - [id number] Start: 01-14-2025 Comment on above: Description: X1 BOX used, X2 SYRINGES injected. BONE 7MM DUO FORTITUDE SERIES FDA Start: 09-10-2022 Goals Date Patient Goal Desired Activity /State Functional Status Date Assessment Result Facility 09-11-2022 Functional status Patient at Baseline [facility] Work Phone: Mental Status Date Assessment Result Facility 09-11-2022 Cognitive function Cognitive Sta tus Patient at Baseline [facility] Work Phone: Clinical Notes 06-29-2022 to 01-13-2025 Discharge InstructionsCely Wells RN - 01/03/2025 3:30 PM ESTDischarge InstructionsCely Wells RN - 12/14/2024 3:35 PM EST Note Date & Type Note Facility 01-13-2025 Hospital Discharge instructions Christina Moreau DO - 01/13/2025 8:51 AM EST Images from the original note were not included. [facility] POSTOPERATIVE PATIENT INSTRUCTIONS [...] (*See Special Considerations) -Short local travel (restaurant, confucianist) - Long distance travel > 1.5 hours [...] the office with any questions or concerns. [phone]. If during office hours, your issue may require an appointment. If after hours, the answering service will connect you with the physician Marketing Operations Analyst. If you are concerned that your issue may be emergent, PLEASE CALL FIRST. Many issues may be resolved over the phone and avoid an unnecessary and expensive ER visit. If you truly have an emergency related to the surgery and call first: *You will be directed to the hospital ER in which you had your surgery. [facility] primarily or [facility] rarely. [facility] patients may be asked to report to [facility] if Dr. Vargas's on-call partner is assuming responsibility. ER visits are ALWAYS covered by insurance (i.e. [facility] can go to a [facility] ER.) Calling 1st expedites your care & avoids an unnecessary and costly ambulance transfer to the Hospital. Dial 911 or go to your closest ER if your emergency is related to a potential heart attack or stroke. 3 DISCHARGE MEDICINES Dubach 325/5mg tablets or alternative narcotic. Take 1-2 tablets by mouth every 4-6 hours as needed for pain. Per [facility] Board of Pharmacy laws, only 1 week of narcotics may be prescribed at a time. Do not take extra Tylenol (Acetaminophen) orally as Dubach already contains the medicine. May take 500mg orally every 4-6 hours if off of Dubach. * Ibuprofen 400-800mg is safe to take. [...] in order to heal successfully in the middle or intermediate school principal. Once you have fully recovered, you may focus on enjoying your life. Keep in mind, you will continue to heal for 6-12 months after surgery, so use common sense to protect your surgery (avoid repetitive heavy lifting, constipation, chronic pelvic strain.) In particular, if you had a hysterectomy, you may have both physical and emotional effects that may be brief or nursing home. After hysterectomy, periods will stop, and a [...] blood clots in the legs or lungs, [place], or stroke. Elderly patients over the age [...] spout open. A commercially prepared urinary appliance immersion metal cleaner may also be used as instructed. It [...] in / for: DAY 1 ____ Outpatient renewable energy division manager surgeries, transurethral bulking injections, incontinence slings, vaginal [...] office to update your voiding status at [phone]. If you cannot void within 6 hrs., [...] cannot be sent through Care Everywhere.scopolamine transdermal (Guamanian)documented in this encounter [facility] 01-03-2025 History of Present illness Narrative DAY OF SURGERY/PROCEDURE GUIDELINES As a patient at the [facility], you can expect quality medical and nursing [...] if directed) Do not apply any lotions. [place] your teeth, but do not swallow any [...] and recovery. documented in this encounter [facility] 12-18-2024 Hospital Discharge instructions Christina Moreau, DO - 12/18/2024 11:34 AM EST Images from the original note were not included. [facility] UROGYNECOLOGY & PELVIC REHABILITATION POSTOPERATIVE PATIENT INSTRUCTIONS [...] (*See Special Considerations) -Short local travel (restaurant, confucianist) - Long distance travel > 1.5 hours [...] the office with any questions or concerns. [phone]. If during office hours, your issue may require an appointment. If after hours, the answering service will connect you with the physician Marketing Operations Analyst. If you are concerned that your issue may be emergent, PLEASE CALL FIRST. Many issues may be resolved over the phone and avoid an unnecessary and expensive ER visit. If you truly have an emergency related to the surgery and call first: *You will be directed to the hospital ER in which you had your surgery. [facility] primarily or [facility] rarely. [facility] patients may be asked to report to [facility] if Dr. Vargas's on-call partner is assuming responsibility. ER visits are ALWAYS covered by insurance (i.e. [facility] can go to a [facility] ER.) Calling 1st expedites your care & avoids an unnecessary and costly ambulance transfer to the Hospital. Dial 911 or go to your closest ER if your emergency is related to a potential heart attack or stroke. 3 DISCHARGE MEDICINES Dubach 325/5mg tablets or alternative narcotic. Take 1-2 tablets by mouth every 4-6 hours as needed for pain. Per [facility] Board of Pharmacy laws, only 1 week of narcotics may be prescribed at a time. Do not take extra Tylenol (Acetaminophen) orally as Dubach already contains the medicine. May take 500mg orally every 4-6 hours if off of Dubach. * Ibuprofen 400-800mg is safe to take. [...] in order to heal successfully in the middle or intermediate school principal. Once you have fully recovered, you may focus on enjoying your life. Keep in mind, you will continue to heal for 6-12 months after surgery, so use common sense to protect your surgery (avoid repetitive heavy lifting, constipation, chronic pelvic strain.) In particular, if you had a hysterectomy, you may have both physical and emotional effects that may be brief or middle or intermediate school principal. After hysterectomy, periods will stop, and a [...] blood clots in the legs or lungs, [place], or stroke. Elderly patients over the age [...] cannot be sent through Care Everywhere.Cystoscopy: Post-op (Guamanian)documented in this encounter [facility] 12-14-2024 History of Present illness Narrative DAY OF SURGERY/PROCEDURE GUIDELINES As a patient at the [facility], you can expect quality medical and nursing [...] if directed) Do not apply any lotions. [place] your teeth, but do not swallow any [...] and recovery. documented in this encounter [facility] 09-12-2024 History of Present illness Narrative Lynne [...] 02/26/2022 Performed by Stuart Carrasco MD at [facility] PA[facility] INJECTION BLOCK EPIDURAL CAUDAL STEROID N/A 01/22/2022 Performed by Stuart Carrasco MD at [facility] NERVE MEDIAL BRANCH: bilat C /3 3/4 Bilateral 08/12/2023 Performed by Stuart Carrasco MD at [facility] SACROILIAC JOINT Left 10/02/2021 Performed by Stuart Carrasco MD at [facility] SPINE TRANSFORAMINAL Left L 5,1 Nroot Left 08/21/2021 Performed by Stuart Carrasco MD at [facility] SPINE TRANSFORAMINAL: left L 5,1 nroot Left 11/13/2021 Performed by Stuart Carrasco MD at [facility] [place] [facility] 2010 fluid removed LAPAROSCOPIC CHOLECYSTECTOMY N/A 01/24/2020 Performed by Lobito Pruitt MD at [facility] HX Family History Problem Relation [...] for this visit: Cystocele with prolapse - [facility] - [place], [place]; Future Patient has tried pelvic floor therapy in the past with minimal improvement. 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 Information given for BCCP program so patient can get scheduled for annual / pap d/t no insurance. All questions answered. Educational material provided through [employer]. RTO for annual and / or sooner as needed. MATTY Haq APRN-CNP Lisa M Krotzer, APRN-CNP 09/12/24 1518 documented in this encounter [facility] 08-16-2023 Evaluation note Encounter Date Diagnosis Assessment [...] pain of left shoulder (ICD-10 - M25.512) [employer] Other 03-30-2023 Evaluation note* Encounter Date Diagnosis [...] in nature these are not radicular symptoms. [employer] Other 01-26-2023 Evaluation note* Encounter Date Diagnosis [...] also possible the tingling may never improve. [employer] Other 11-15-2022 Evaluation note* Encounter Date Diagnosis Assessment Notes Treatment Notes Treatment Clinical Notes Sep, Spondylolisthesis, cervical region (ICD-10 - M43.12) Lynne is doing very well, her radicular symptoms are completely gone. She does still complain of some weakness in her arm and her hand and wishes to do physical therapy, I sent a referral to [facility] in [place] for this. I independently reviewed the x-ray [...] fusion of cervical spine (ICD-10 - Z98.1) [employer] Other 08-23-2022 Evaluation note* Encounter Date Diagnosis Assessment Notes Treatment Notes Treatment Clinical Notes Jun, GERD (gastroesophageal reflux disease) (ICD-10 - K21.9) [employer] Other 08-02-2022 Evaluation note* Encounter Date Diagnosis Assessment Notes Treatment Notes Treatment Clinical Notes Jun, GERD (gastroesophageal reflux disease) (ICD-10 - K21.9) STOP SUCRALFATE START LANSOPRAZOLE 30 MG BID IF NOT IMPROVED WILL CONSIDER EGD/ GONZALEZ RTO 3 MONTHS Jun, Abdominal pain (ICD-10 - R10.9) [place] [facility] Other Evaluation noteNo InformationNortFoundations [facility] Other evaluation note* Diagnosis Onset Date Resolution Status Cervical disc disorder at C6-C7 level with radiculopat hy acute Left arm weakness acute Neck fracture acute [facility] Work Phone: Evaluation noteNo assessment information available [facility] Work Phone: Evaluation note* Diagnosis Chronic bladder pain Incomplete bladder emptying S/p Cysto with filling CMG 12/19/24 Other postprocedural status [facility]* Diagnosis Mixed incontinence urge and stress [...] vaginal wall prolapse [facility]* Diagnosis Cystocele with prolapse- Primary [facility] Diagnosis Post-op pain- Primary Other acute postoperative pain 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)(female) Hyperactivity of bladder Hypertonicity of bladder Female cystocele Cystocele, midline Rectocele Uterine prolapse Uterine prolapse without mention of vaginal wall prolapse S/p TVH, BS, A/P repairs, Cysto, Bulkamid 01/14/25 Other postprocedural status documented in this encounter [facility] note* Diagnosis UTI symptoms documented in this encounter [facility] general Narrative - Reported* Type Description Date Medical History GERD Surgical History neck surgery Surgical History Procedure:20 hr labor ;Dise ase: 2008 Surgical History knee surgery 2011 Surgical History Procedure:12 hr labor ;Dise ase: 2006 Surgical History Procedure: 2 hr labor ;Dise ase: 2016 Surgical History Laparoscopic Cholecystectomy-Wi ecek 12/2019 Hospitalization History cb [employer] Other History general Narrative - Reported* Type Description Date Medical History GERD Surgical History neck surgery Surgical History Procedure:20 hr labor ;Dise ase: 2009 Surgical History knee surgery 2012 Surgical History Procedure:12 hr labor ;Dise ase: 2007 Surgical History Procedure: 2 hr labor ;Dise ase: 2016 Surgical History Laparoscopic Cholecystectomy-Wi ecek 12/2019 Hospitalization History cb Hospitalization History see above surg. hx. [employer] Other Instructions* Attachments The following attachments cannot be sent through Care Everywhere. * Cystocele and Rectocele (Guamanian) documented in this encounterWadsworth-Rittman HospitalReason for visit NarrativePT HERE AT REQUEST OF DR CRUZ FOR EVALUATION AND TREATMENT OF GERD / ABDOMINAL PAIN, REFERRAL NOTERECEIVEDCorpus Christi [facility] Other Reason for visit NarrativePain Medicine Referral UpdateNosaint louis [facility] Other reason for visit Narrative* Auth/Cert Specialty Diagnoses / Procedures Referred By Contac t Referred To Contact Diagnoses 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)(female) Hyperactivity of bladder Female cystocele Rectocele Uterine prolapse Procedures WY NDSC NJX IMPLT MATRL URT&/BLDR NCK WY VAGINAL HYSTERECTOMY UTERUS 250 GM/< WY LAPAROSCOPY W/RMVL ADNEXAL STRUCTURES WY CMBND ANTERPOST COLPORRAPHY W/CYSTO CYSTOSCOPY INJECTION HYSTERECTOMY VAGINAL BILATERAL SALPINGECTOMY VAGINAL RE[place] [address] [place] [address] [facility] [employer] [address] [place] [address] Referral ID Status Reason Start Date Expiration Date Visits Re quested Visits Authorized [id number] 1 1 [employer] Summary Purpose Family History Relationship Condition Age at Onset Recorded Date/T mulugeta Not Specified Diabetes mellitus Unknown Anemia Unknown father History of cardiac d efibrillator placement Unknown Schizophrenia Unknown grandparent Malignant neoplasm of lung Unknown family member Malignant neoplasm of lung Unknown grandparent Malignant neoplasm of breast Unknown Malignant neoplasm of lung Unknown sister Anemia Unknown Relationship Condition Age at Onset Recorded Date/T mulugeta mother Diabetes mellitus Unknown Anemia Unknown father History of cardiac d efibrillator placement Unknown Schizophrenia Unknown grandparent Malignant neoplasm of lung Unknown family member Malignant neoplasm of lung Unknown grandparent Malignant neoplasm of breast Unknown Malignant neoplasm of lung Unknown sister Anemia Unknown father Diabetes mellitus Unknown Heart disease Unknown Malignant neoplasm Unknown mother Unknown Diabetes mellitus Unknown Advance Directives Advance Directive Response Recorded Date/ Time Advance Directives No December 25, 2018 8:09am Advance Directive Response Recorded Date/ Time Advance Directives No December 25, 2018 9:09am Date Activated Date Inactivated Comments 01/24/2020 12:52 PM 01/24/2020 7:00 PM Date Activated Date Inactivated Comments 01/24/2020 10:06 AM 01/24/2020 12:52 PM Date Activated Date Inactivated Comments 01/17/2025 9:54 AM Hospital Course Note [facility] Clinical Discharge Summary PERSON INFORMATION Name LYNNE LAWS Age 34 Years 1985 Sex FEMALE Language Guamanian PCP Provider, None Marital Status Med Service Observation Acct# Arrival 10/28/2019 23:15:38 Visit Reason Nausea; Vomiting; ABD PAIN Acuity LOS 000 13:08 Address: [address] [place] [address] Comment: PROVIDER INFORMATION VITALS INFORMATION Vital Sign [...] Complaint M50.20 m50.20 Chief Complaint m50.20 m43.12 Chief Complaint Admit Date Unknown February 01, 2025 1:13 pm Reason for Referral Specialty Diagnoses / Procedures Referred By Melissa rivas Referred To Contact Cardiology Diagnoses Pre-op testing Procedures E[place] 12 [place] [address] [place] [address] Referral ID Status Reason Start Date Expiration Date Visits Re quested Visits Authorized [id number] Open 12/31/2024 12/31/2025 1 1 Reason evaluate and treat f or neck and shoulder pain Diagnosis 1 Herniated cervical d isc (M50.20) Referral Organization [facility] Referring Provider First Name Keron Referring Provider Last Name Yamileth Referring Provider Specialty Neurologica l Surgery Referred Organization [facility] Referred Provider Stuart Carrasco Jr. Referred Address [address] [place], [place],[address] Referred Provider Specialty Pain Medicin e Referral Priority Routine Reason evaluate and treat f or neck and arm pain Diagnosis 1 Left cervical radicu lopathy (M54.12) Referral Organization [facility] Referring Provider First Name Keron Referring Provider Last Name Yamileth Referring Provider Specialty Neurologica l Surgery [facility] Referred Address [address] [facility],[place], [place],[address] Referred Provider 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 Referral Priority Routine Reason Evaluate and Treat O utpatient PT for Arm Strengthening Diagnosis 1 Spondylolisthesis, c ervical region (M43.12) Referral Organization [facility] Referring Provider First Name Keron Referring Provider Last Name Yamileth Referring Provider Specialty Neurologica l Surgery Referred Organization [facility] Referred Address [address] [place], [place],[address] Referred Provider 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 Referral Priority Routine Additional Source Comments INFORMATION SOURCE (unrecogn ized section and content) DATE CREATED AUTHOR [facility]23/2018 [facility] DATE CREATED AUTHOR AUTHOR'S ORGANIZ ATION 11/07/2019 [facility] DATE CREATED AUTHOR AUTHOR'S ORGANIZ ATION 12/22/2023 [facility] DATE CREATED AUTHOR AUTHOR'S ORGANIZ ATION 09/15/2024 [facility] DATE CREATED AUTHOR AUTHOR'S ORGANIZ ATION 02/02/2025 [facility] DATE CREATED AUTHOR AUTHOR'S ORGANIZ ATION 02/05/2025 [facility] REASON FOR VISIT (unrecogniz ed section and content) Specialty Diagnoses / Procedures Referred By Contac t Referred To Contact Diagnoses Chronic bladder pain Incomplete bladder emptying Chronic bladder pain [R39.82] Incomplete bladder emptying [R33.9] Procedures WY CYSTOURETHROSCOPY WY BLADDER PRESSURE MEASUREMENT DURING FILLING Cystoscopy & Filling CMG Cystoscopy & [place] [address] [place] [address] [facility] [address] [place] [address] Referral ID Status Reason Start Date Expiration Date Visits Re quested Visits Authorized [id number] 1 1 Reason Comments Vaginal Pain Pt [...] Cruz PA-C Primary Care Provider Activ e Floor Assembler Relationship Specialty Start Date End Date Nely Cruz PA-C [address] [place] [address] PCP - General Family Medicine 09/27/24 Floor Assembler Relationship Specialty Start Date End Date Nely Cruz PA-C [address] [place] [address] PCP - General Family Medicine 09/27/24 Floor Assembler Relationship Specialty Start Date End Date Nely Cruz PA-C [address] [place] [address] PCP - General Physician Head Of Training And Development 01/21/23 Floor Assembler Relationship Specialty Start Date End Date Nely Cruz PA-C [address] [place] [address] PCP - General Family Medicine 09/27/24 Floor Assembler Relationship Specialty Start Date End Date Nely Cruz PA-C [address] [place] [address] PCP - General Family Medicine 09/27/24 Team Status: Inactive Member Role Status Dates Nely Cruz PA-C Primary Care Provider Activ e Start: February 01, 2025 End: February 01, 2025 Wong Cloud MD Attending Provider Active Start : February 01, 2025 End: February 01, 2025 Goals (unrecognized section and content) Goals may [...] by mouth every 6 hours 120 tablet 01/14/2025 Scheduled Active and Recently Administ ered Medications (unrecognized section and content) Medication Order 12/17/2024 12/18/2024 12/19/2024 ceFAZolin (ANCEF) 2000 mg in sterile water 20 mL IV syringe (COMPLETED) 2,000 mg, IntraVENous, ONCE, On Tue12/19/24 at 0915, For 1 dose, Administer over 5 mins. 1029 (Given - Provid er: Azam Berrios, CHART CALCULATOR - PHLEBOTOMIST MEDICAL LAB ASSISTANT) meperidine (DEMEROL) injection 12.5 mg 12.5 mg, IntraVENous, ONCE, 1 dose, On Tue12/19/24 at 1115, May give every 5 minutes to max of 50mg., PACU only 1115 (Due) sodium chloride flush 0.9 % injection [...] = 20 mL/lumen, Pre-op (day of surgery) 0915 (Due)2100 (Due) sodium chloride flush 0.9 % [...] Central Line = 20 mL/lumen, PACU only 1115 (Due)2100 (Due) Continuous Medication Order 12/17/2024 12/18/2024 [...] 1258 (Given - Provid er: Dara Colvin, CHART CALCULATOR - PHLEBOTOMIST MEDICAL LAB ASSISTANT) celecoxib (CELEBREX) capsule 200 mg (COMPLETED) 200 [...] 1101 (New Bag - Prov ider: Savanna Mendez, RN)1243 (NoRateChange - Provider: MYA Miles CRNA)1352 [...] only 1534 (Given - Provid er: Radha Sharma RN)1620 (Given - Provider: Radha Sharma RN) [...] dose is administered., PACU only lidocaine-EPINEPHrine 1 %-1:514228 injection (CANCELED) PRN, Starting on Tue01/14/25 at 1316, Until Tue01/14/25 at 1445, Intra-op 1316 (Given - Provid er: Serg Vargas, DO - Comment: Placed on sterile field and verified with surgical services tech. Surgeon notified of pre-operative block prior to [...] Pain Severe (7-10), PHASE II, PACU only 160 (Given - Provid er: Radha Sharma RN) prochlorperazine (COMPAZINE) injection 5 mg (COMPLETED) 5 mg, IntraVENous, ONCE PRN, 1 dose, Starting on Tue01/14/25 at 1531, Until Tue01/14/25 at 1719, Nausea, Initial antiemetic therapy., PACU only 171 (Given - Provid er: Radha Sharma RN) [...] 1153, Until Tue01/14/25 at 1230, Shruthi Perry: [place] override, Shruthi Perry: cabinet override 1230 (Given - Provid er: Shruthi Perry, RN) HYDROmorphone (DILAUDID) 1 MG/ML injection 1 dose, Starting on Tue01/14/25 at 1532, Until Tue01/15/25 at 0344, Radha Sharma: cabinet override, Radha Sharma: cabinet override 1545 (Due) lidocaine-EPINEPHrine 1 %-1:198509 injection 1 dose, Starting on Tue01/14/25 at 1238, Until Tue01/15/25 at 0044, Marii Landin: cabinet override, Marii Landin: cabinet override 1245 (Due) midazolam (VERSED) 2 MG/2ML injection (COMPLETED) 1 dose, Starting on Tue01/14/25 at 1152, Until Tue01/14/25 at 1230, Shruthi Perry: cabinet override, Shruthi Perry: cabinet override 1230 (Given - Provid er: Shruthi Perry RN) Linked Groups Order Group 1: labetalol [...] BE BASED ON THE PRIMARY CLINICAL RECORDS. depict [facility]. provides no warranty or guarantee of the accuracy or completeness of information in this document.
--- NOTE | 2025-02-16 18:57 | ED_ITS ---
HPI - Female Genitourinary General Chief complaint: Urogenital-Female Stated complaint: uti symptoms Time Seen by Provider: 02/16/25 18:50 Source: patient Mode of arrival: walk-in Limitations: no limitations History of Present Illness HPI Narrative: 39-year-old female presents with chief complaint of right flank pain. Patient states the pain began the last 2 to 3 days. She had been seen here recently and diagnosed with UTI versus pyelonephritis versus stone. Previous CT scan did not show stone showed questionable recent passing of a stone. Patient presented here because she felt that her UTI had not been totally cleared with the antibiotic to Keflex. Patient is alert and oriented. She has no fever Or chills. Right-sided flank pain noted on exam. Related Data Home Medications ?Medication ?Instructions ?Recorded ?Confirmed ibuprofen 600 mg tablet 600 mg PO Q8H PRN fever or pain 02/01/25 02/16/25 lisinopril 5 mg tablet 5 mg PO DAILY 02/01/25 02/16/25 ondansetron HCl 4 mg tablet 4 mg PO Q6H PRN nausea and vomiting 02/01/25 02/16/25 sennosides 8.6 mg-docusate sodium 1 tab-cap PO DAILY PRN constipation 02/01/25 02/16/25 50 mg tablet (Stool Softener-Stimulant Laxative) Previous Rx's ?Medication ?Instructions ?Recorded albuterol sulfate 90 mcg/actuation 2 inh inhalation Q4H PRN shortness 08/09/24 aerosol inhaler of breath or wheezing #8.5 grams ondansetron 4 mg disintegrating 4 mg PO Q6H #10 tabs 02/01/25 tablet nitrofurantoin 100 mg PO BID 7 days #14 caps 02/16/25 monohydrate/macrocrystals 100 mg capsule (Macrobid) ondansetron 4 mg disintegrating 4 mg PO Q8H PRN nausea and 02/16/25 tablet vomiting 3 days #10 tabs tamsulosin 0.4 mg capsule 0.4 mg PO DAILY #5 caps 02/16/25 Allergies Allergy/AdvReac Type Severity Reaction Status Date / Time No Known Drug Allergies Allergy Verified 12/09/24 19:57 Review of Systems ROS Status of ROS 10 or more systems reviewed and unremark able except as noted in history and below PFSH PFSH Social History Little interest or pleasure in doing things: not at all Feeling down, depressed, or hopeless: not at all Exam Narrative Exam Narrative: All Systems are negative except as noted/marked.All systems reviewed and otherwise negative Nurses note and vital signs reviewed and patient is not hypoxic. General: The patient appears well and in no apparent distress. Patient is resting comfortably on cart. Skin: Warm, dry, no pallor noted. There is no rash noted. Head: Normocephalic, atraumatic Eye: Normal conjunctiva, no drainage, EOMI. PERRL Ears, Nose, Mouth, and Throat: oral mucosa is moist. Nares patent. Mouth without vesicles. Ear canals patent. Tm's without Erythema Cardiovascular: Regular Rate and Rhythm Respiratory: Patient is in no distress, no accessory muscle use, lungs are clear to auscultation, no wheezing, rales or rhonchi Back: CVA tenderness, left non-tender, no CVA tenderness on left to percussion. GI: Normal bowel sounds, no tenderness to palpation, no masses appreciated. No rebound, guarding, or rigidity noted. Musculoskeletal: The patient has no evidence of calf tenderness, no pitting edema, symmetrical pulses noted bilaterally Neurological: A&O x4, normal speech Psychiatric: Cooperative Constitutional Vital Signs, click to edit/add: Last Vital Signs Temp 98.4 F 02/16/25 18:53 Pulse 79 02/16/25 20:45 Resp 18 02/16/25 20:45 BP 136/74 02/16/25 20:45 Pulse Ox 99 02/16/25 20:45 O2 Del Method Room Air 02/16/25 20:45 Course Vital Signs Vital signs: Vital Signs Temperature 98.4 F 02/16/25 18:53 Pulse Rate 84 02/16/25 18:53 Respiratory Rate 18 02/16/25 18:53 Blood Pressure 140/95 H 02/16/25 18:53 Pulse Oximetry 97 02/16/25 18:53 Oxygen Delivery Method Room Air 02/16/25 18:53 Temperature 98.4 F 02/16/25 18:53 Pulse Rate 79 02/16/25 20:45 Respiratory Rate 18 02/16/25 20:45 Blood Pressure 136/74 02/16/25 20:45 Pulse Oximetry 99 02/16/25 20:45 Oxygen Delivery Method Room Air 02/16/25 20:45 MDM - Female Genitourinary MDM Narrative Medical decision making narrative: 39-year-old female presents with chief complaint of right flank pain. Patient states the pain began the last 2 to 3 days. She had been seen here recently and diagnosed with UTI versus pyelonephritis versus stone. Previous CT scan did not show stone showed questionable recent passing of a stone. Patient presented here because she felt that her UTI had not been totally cleared with the antibiotic to Keflex. Patient is alert and oriented. She has no fever Or chills. Right-sided flank pain noted on exam. Upon arrival here to the emergency room IV was established fluids were given patient was medicated with Toradol and Zofran. She states she continued to have pain. Patient was offered morphine and Dilaudid and declined. Urinalysis shows trace occult blood moderate leuk esterase 75-100 WBCs. Patient also has a 1 mm nonobstructing stone. She will be following up with urology she states she is seeing her gynecology on Tuesday and will talk to him about her diagnoses and possible referral. Nephrology referral given here on her paperwork this evening as well. Home with [place], Flomax and Zofran. Urine culture will be sent. Differential Diagnosis Differential diagnosis: Likely urinary tract infection, cystitis and other Medical Records Attestation: I reviewed the patient's medical records. Lab Data Attestation: I reviewed the patient's lab results. Labs: Lab Results 02/16/25 02/16/25 Range/Units 18:58 19:25 WBC 10.4 (4.0-11.0) 10^3/uL RBC 4.28 (4.20-5.40) 10^6/uL Hgb 13.1 (12.0-16.0) g/dL Hct 39.1 (36.0-48.0) % MCV 91.4 (81.0-99.0) fL MCH 30.6 (26.7-34.0) pg MCHC 33.5 (29.9-35.2) g/dL RDW 11.9 (11.0-15.0) % Plt Count 285 (150-450) 10^3/uL MPV 10.2 (9.5-13.5) fL Neut % (Auto) 61.3 (43.0-75.0) % Lymph % (Auto) 30.8 (20.5-60.0) % [place] % (Auto) 5.3 (1.7-12.0) % Eos % (Auto) 1.9 (0.9-7.0) % Baso % (Auto) 0.4 (0.2-2.0) % Neut # (Auto) 6.4 (1.4-6.5) 10^3/uL Lymph # (Auto) 3.2 (1.2-3.8) 10^3/uL [place] # (Auto) 0.6 (0.3-0.8) 10^3/uL Eos # (Auto) 0.2 (0.0-0.7) 10^3/uL Baso # (Auto) 0.0 (0.0-0.1) 10^3/uL Abs Immat Gran (auto) 0.03 (0.00-0.03) 10^3/uL Imm/Tot Granulo (auto) 0.3 (0.0-0.5) % Sodium 141 (136-145) mmol/L Potassium 3.7 (3.5-5.1) mmol/L Chloride 106 (98-107) mmol/L Carbon Dioxide 27.3 (21.0-32.0) mmol/L Anion Gap 11.4 BUN 16.0 (7.0-18.0) mg/dL Creatinine 1.29 H (0.55-1.02) mg/dL Est GFR ( Amer) 56 L (>=60 mL/min/1.73m^2) Est GFR (Non-Af Amer) 47 L (>=60 mL/min/1.73m^2) BUN/Creatinine Ratio 12.4 Glucose 106 (74-106) mg/dL Calcium 9.5 (8.5-10.1) mg/dL Total Bilirubin 0.2 (0.2-1.0) mg/dL AST 10 L (15-37) U/L ALT 18 (14-59) U/L Alkaline Phosphatase 60 (46-116) U/L Total Protein 7.5 (6.4-8.2) g/dL Albumin 3.9 (3.4-5.0) g/dL Globulin 3.6 g/dL Albumin/Globulin Ratio 1.1 Urine Color Lt. yellow (YELLOW) Urine Clarity Clear (CLEAR) Urine pH 6.5 (5.0-9.0) Ur Specific [place] 1.020 (1.005-1.025) Urine Protein Negative (NEG/TRACE) mg/dL Urine Glucose (UA) Negative (NEGATIVE) mg/dL Urine Ketones Trace A (NEGATIVE) mg/dL Urine Occult Blood Trace-i (NEGATIVE) Urine Nitrite Negative (NEGATIVE) Urine Bilirubin Negative (NEGATIVE) Urine Urobilinogen 0.2 (0.2-1.0) EU/dL Ur Leukocyte Esterase Moderate A (NEGATIVE) Urine RBC 0-2 (0-2) #/HPF Urine WBC 75-100 A (NONE SEEN) #/HPF Ur Squamous Epith Cells Moderate A (NONE/RARE) #/LPF Urine Crystals None seen (None Seen) #/HPF Urine Bacteria Large A (NONE SEEN) #/HPF Urine Casts None seen (NONE SEEN) #/LPF Urine Mucus None seen (NONE SEEN) Ur Culture Indicated? Yes-[facility] [place] Imaging Data CT scan - abdomen: Radiologist's impression: CT without contrast impression per radiology shows less than 1 mm calcification in the right proximal ureter seen on image 75 associated early partial right renal obstruction, bilateral nephrolithiasis normal appendix hysterectomy no free fluid or free air cholecystectomy and no abscess or hematoma. Discharge Plan Discharge Chief Complaint: Urogenital-Female Clinical Impression: Nephrolithiasis, Dysuria Patient Disposition: Home, Self-Care Time of Disposition Decision: 20:16 Condition: Good Prescriptions / Home Meds: New ondansetron 4 mg tablet,disintegrating 4 mg PO Q8H PRN (Reason: nausea and vomiting) 3 Days Qty: 10 0RF tamsulosin 0.4 mg capsule 0.4 mg PO DAILY Qty: 5 0RF nitrofurantoin monohyd/m-cryst [Macrobid] 100 mg capsule 100 mg PO BID 7 Days Qty: 14 0RF Rx Instructions: must administer with a meal/food No Action albuterol sulfate 90 mcg/actuation HFA aerosol inhaler 2 inh inhalation Q4H PRN (Reason: shortness of breath or wheezing) Qty: 8.5 0RF ibuprofen 600 mg tablet 600 mg PO Q8H PRN (Reason: fever or pain) lisinopril 5 mg tablet 5 mg PO DAILY ondansetron HCl 4 mg tablet 4 mg PO Q6H PRN (Reason: nausea and vomiting) sennosides-docusate sodium [Stool Softener-Stimulant Laxat] 8.6-50 mg tablet 1 tab-cap PO DAILY PRN (Reason: constipation) ondansetron 4 mg tablet,disintegrating 4 mg PO Q6H Qty: 10 0RF Print Language: Albanian Instructions: Kidney Stones (ED), How to Strain Your Urine (ED) Referrals: [facility] [Primary Care Provider] - 1 week Sara Loredo MD [Physician] - 1 week (follow up with [facility] ) Discharge Date/Time: 02/16/25 20:47
[2025-02-16 19:08] LABS: Bilirubin Urine NEGATIVE (NEGATIVE); Blood Urine TRACE-I (NEGATIVE); Clarity Urine CLEAR (CLEAR); Color Urine LT. YELLOW (YELLOW); Glucose Urine UA NEGATIVE (NEGATIVE); Ketones Urine TRACE mg/dL (NEGATIVE); Leukocyte Esterase Urine MODERATE (NEGATIVE); Nitrite Urine NEGATIVE (NEGATIVE); Protein Urine NEGATIVE (NEG/TRACE); Urobilinogen Urine 0.2 EU/dL (0.2-1.0); pH Urine 6.5 (5.0-9.0)
[2025-02-16 19:15] LABS: Bacteria Urine LARGE #/HPF (NONE SEEN); Cast Seen? NONE SEEN #/LPF (NONE SEEN); Crystals Seen? None Seen #/HPF (None Seen); Mucus Urine NONE SEEN (NONE SEEN); RBC Urine 0-2 #/HPF (0-2); Squamous Epithelial Cell Urine MODERATE #/LPF (NONE/RARE); Urine Culture Indicated YES-FRMC; WBC Urine 75-100 #/HPF (NONE SEEN)
[2025-02-16] MEDS: KETOROLAC TROMETHAMINE 30 MG/ML VIAL IVP (19:27)
[2025-02-16] MEDS: ONDANSETRON PF 4 MG/2 ML VIAL IV (19:27)
[2025-02-16] MEDS: 0.9 % SODIUM CHLORIDE 1,000 ML 999 ML IV (19:27)
[2025-02-16 19:34] LABS: Basophils Percent Auto 0.4 % (0.2-2.0); Eosinophils Absolute Auto 0.2 10^3/uL (0.0-0.7); Eosinophils Percent Auto 1.9 % (0.9-7.0); Hematocrit 39.1 % (36.0-48.0); Hemoglobin 13.1 g/dL (12.0-16.0); Immature Granulocytes Abs Auto 0.03 10^3/uL (0.00-0.03); Immature Granulocytes Pct Auto 0.3 % (0.0-0.5); Lymphocytes Absolute Auto 3.2 10^3/uL (1.2-3.8); Lymphocytes Percent Auto 30.8 % (20.5-60.0); Mean Corpuscular HGB Conc 33.5 g/dL (29.9-35.2); Mean Corpuscular Hemoglobin 30.6 pg (26.7-34.0); Mean Corpuscular Volume 91.4 fL (81.0-99.0); Mean Platelet Volume 10.2 fL (9.5-13.5); Monocytes Absolute Auto 0.6 10^3/uL (0.3-0.8); Monocytes Percent Auto 5.3 % (1.7-12.0); Neutrophils Absolute Auto 6.4 10^3/uL (1.4-6.5); Neutrophils Percent Auto 61.3 % (43.0-75.0); Platelet Count 285 10^3/uL (150-450); Red Blood Count 4.28 10^6/uL (4.20-5.40); Red Cell Distribution Width 11.9 % (11.0-15.0); White Blood Count 10.4 10^3/uL (4.0-11.0)
[2025-02-16 19:47] LABS: Alanine Aminotransferase 18 U/L (14-59); Albumin Globulin Ratio 1.1; Albumin Level 3.9 g/dL (3.4-5.0); Alkaline Phosphatase 60 U/L (46-116); Anion Gap 11.4; Aspartate Amino Transferase 10 U/L (15-37); BUN Creatinine Ratio 12.4; Bilirubin Total 0.2 mg/dL (0.2-1.0); Calcium 9.5 mg/dL (8.5-10.1); Carbon Dioxide 27.3 mmol/L (21.0-32.0); Chloride 106 mmol/L (98-107); Estimated GFR (African America 56 (>=60 mL/min/1.73m^2); Estimated GFR (Non-African Ame 47 (>=60 mL/min/1.73m^2); Globulin 3.6 g/dL; Glucose 106 mg/dL (74-106); Potassium 3.7 mmol/L (3.5-5.1); Sodium 141 mmol/L (136-145); Total Protein 7.5 g/dL (6.4-8.2)
[2025-02-16] MEDS: TAMSULOSIN HCL 0.4 MG CAPSULE PO (20:38)
[2025-02-16] MEDS: HYDROCODONE/ACET 5-325 MG TABLET 1 TAB PO (20:38)
[2025-02-16 20:45] VITALS: BP 136/74; PULSE 79; O2SAT 99
== END 2025-02-16 20:47 | disposition home or self-care (01) ==
PROVIDERS: Physician Assistant; Emergency Provider Internal Medicine
DX: N20.0 Calculus of kidney (principal); R30.0 Dysuria; Z90.49 Acquired absence of other specified parts of digestive tract; Z90.710 Acquired absence of both cervix and uterus
CPT/HCPCS: 36415; 74176; 80053; 81001; 85025; 87086; 87150; 87186; 96374; 96375; 99285; J1885; J2405